=== PATIENT | female | born 2000 | race Caucasian/White ===

== ENCOUNTER 2019-11-28 04:29 | Emergency (ER) | payer OTHER, SELFPAY ==
[2019-11-28 04:33] VITALS: BP 163/88; PULSE 97; RESP 16; TEMP 36.2; O2SAT 99
--- NOTE | 2019-11-28 05:00 | ED.EXTPRO ---
HPI - Extremity Problem General Chief complaint: Extremity Problem,Nontraumatic Stated complaint: pain in left arm for months Time Seen by Provider: 11/28/19 04:50 History of Present Illness HPI Narrative: Left arm pain for the past 2 months. Moves to different locations in the arm. Currently worst in the elbow. When she moves it radiates to the neck and wrist. No injury. She has tried tyelnol without relief. No trauma, swelling, redness. She is 21 weeks Related Data Allergies Allergy/AdvReac Type Severity Reaction Status Date / Time hydromorphone Allergy Severe HALLUCINATI Verified 10/17/17 14:38 ONS morphine AdvReac Severe SEVERE Verified 10/17/17 14:38 HIVES UNCONTROLLED WITH BENADRYL Review of Systems Review of Systems: All systems reviewed & are unremarkable except as noted in HPI and below Constitutional: Constitutional: Denies fever(s) and Denies weakness Cardiovascular: Cardiovascular: Denies chest pain Respiratory: Respiratory: Denies dyspnea Gastrointestinal: Gastrointestinal: Denies nausea and Denies vomiting Genitourinary: Genitourinary: Denies abnormal vaginal bleeding and Denies vaginal discharge Musculoskeletal: Musculoskeletal: Denies back pain Exam Const: General: no acute distress and alert Orientation/consciousness: patient oriented x3 HENMT: Head: normal to inspection Chest: Chest palpation & inspection: normal inspection of the chest and no tenderness Resp: Effort & Inspection: normal respiratory effort Auscultation: clear to auscultation bilaterally Cardio: Rate: regular rate Rhythm: regular rhythm GI: GI Palp: Yes Soft to palpation and No Tenderness to palpation present (GI) Back/Spine/Pelvis: Other: Tenderness medial to left scapula. Skin: General skin exam: normal color Rashes: no rashes Wounds: no wounds Neuro: General: patient oriented x3, moves all extremities and CN's II-XI intact bilaterally Speech: normal speech Extrem: Other: Diffuse tenderness in left arm. Full ROM with some pain. No redness, warmth, deformity. Course Vital Signs Vital signs: Vital Signs Temperature 36.2 C L 11/28/19 04:33 Pulse Rate 97 11/28/19 04:33 Respiratory Rate 16 11/28/19 04:33 Blood Pressure 163/88 H 11/28/19 04:33 Pulse Oximetry 99 11/28/19 04:33 Temperature 36.2 C L 11/28/19 04:33 Pulse Rate 97 11/28/19 04:33 Respiratory Rate 16 11/28/19 04:33 Blood Pressure 163/88 H 11/28/19 04:33 Pulse Oximetry 99 11/28/19 04:33 MDM - Extremity (Nontraumatic) MDM Narrative Medical decision making narrative: Brachial and AC vein full compressible on US. Differential Diagnosis Differential diagnosis: Likely other (Strain, radiculopathy, DVT) Discharge Plan Discharge Clinical Impression: Left arm pain Patient Disposition: Home, Self-Care Condition: Stable Instructions: Arm Pain (ED) Prescriptions: New cyclobenzaprine 10 mg tablet 10 mg PO TID PRN (Reason: muscle spasm) Qty: 20 RF: 0 Interventions: Discharge Disposition Last Done: 11/28/19 05:42 IV Stop Time Documented Last Done: 11/28/19 05:43 Follow-up/Referrals: PHYSICIAN,PARTS DESIGNER [Primary Care Provider] - Discharge Date/Time: 11/28/19 05:43
[2019-11-28] MEDS: CYCLOBENZAPRINE HCL 10 MG TABLET PO (05:24)
== END 2019-11-28 05:43 | disposition home or self-care (01) ==
PROVIDERS: Emergency Provider Emergency Medicine
DX: O26.892 Other specified pregnancy related conditions, second trimester (principal); M79.602 Pain in left arm; Z3A.21 21 weeks gestation of pregnancy
CPT/HCPCS: 99283; A9270

== ENCOUNTER 2022-01-26 16:22 | Inpatient (IN) | payer OTHER, MEDICAID, SELFPAY ==
[2022-01-26] VITALS (7 sets, daily range): BP systolic 100–134; BP diastolic 59–71; PULSE 92–116; RESP 16–26; TEMP 36.9–39.4; O2SAT 93–98; BMI 33.2
--- NOTE | ~2022-01-26 | CT_ITS ---
EXAMINATION: CTA chest PE abdomen pel DATE: 01/26/2022 19:34 INDICATION: Chest pain, cough, shortness of breath, lower abdominal pain, nausea vomiting diarrhea ch ills with fever. Urinary incontinence. TECHNIQUE: Computed tomography angiography (CTA) of the chest was performed with 100 mL Omnipaque-350 intravenous contrast timed to evaluate the pulmonary arteries, followed by portal venous phase imagi ng of the abdomen and pelvis. Coronal maximum intensity projection 3D-reconstructions were created by the technologist. The dose-length product (DLP) was 1203.57 mGy-cm. Automated exposure control and i terative reconstruction technique were employed. COMPARISON: 12/29/2011. FINDINGS: CHEST: Lung parenchyma and airways: Motion artifact. Nodular and groundglass centrilobular opacities in the bilateral dependent lower lungs. Pleura: Small bilateral pleural fluid collections. Thoracic inlet, axillae and chest wall: Unremarkable. Thoracic aorta: Normal. Mediastinum: Esophageal varices.. Heart and pericardium: Normal. Coronary artery calcifications: Absent. Thoracic bones: No acute osseous finding. Pulmonary arteries: Study quality: Degraded by motion and beam hardening such that segmental emboli c ould be missed, particularly in the left lung. No central pulmonary emboli detected. ABDOMEN/PELVIS: Liver: Right liver lobe embolization coil. The main portal vein is narrowed but remains patent. No de finite thrombus Biliary/Gallbladder: Gallbladder is absent. No bile duct dilation. Pancreas: No mass or duct dilation. Spleen: Markedly enlarged, to 20.3 cm. Adrenals:No mass. Kidneys: No mass, stone, or hydronephrosis. GI tract: No small or large bowel dilation. Normal appendix. Mesentery/Peritoneum: Small volume ascites. Extensive collateral vessels present throughout the abdom en. Retroperitoneum: No mass. Pelvis: Pelvic organs are within normal limits. Soft Tissues: Soft tissues and body wall unremarkable. Abdominopelvic bones: No acute osseous finding. IMPRESSION: Severely limited examination with respect to the diagnosis of pulmonary embolism such that segmental emboli could be missed. No central emboli detected. Pulmonary opacities may reflect atypical infectio n or other small airways disease, aspiration, or hypersensitivity pneumonitis. Massive splenomegaly a nd extensive collateralization in the abdomen, presumably secondary to portal hypertension. Reviewed, dictated and finalized at location K. IMPRESSION: Severely limited examination with respect to the diagnosis of pulmonary embolis m such that segmental emboli could be missed. No central emboli detected. Pulmo nary opacities may reflect atypical infection or other small airways disease, a spiration, or hypersensitivity pneumonitis. Massive splenomegaly and extensive collateralization in the abdomen, presumably secondary to portal hypertension.
--- NOTE | ~2022-01-26 | XR_ITS ---
EXAMINATION: XR chest 1V portable Exam Date/Time: 01/26/2022 17:54 CDT HISTORY: cough , fever Comparison: None available. RESULT: Lines, tubes, and devices: Cholecystectomy clips. Possible embolization coil projecting over the rig ht upper quadrant. Lungs and pleura: Mid and lower lung reticulonodular opacities. Cardiomediastinal silhouette: Stable. Other: No acute osseous or upper abdominal finding. IMPRESSION: Pulmonary opacities may represent bronchiolitis, as can be seen with atypical infection, asthma, aspi ration, and small airways disease. Reviewed, dictated and finalized at location K. IMPRESSION: Pulmonary opacities may represent bronchiolitis, as can be seen with atypical i nfection, asthma, aspiration, and small airways disease.
[2022-01-26 16:38] LABS: Basophils Percent Auto 0.5 % (0.2-1.2); Eosinophils Percent Auto 0.2 % (0-4.4); Hematocrit 37.1 % (37.0-47.0); Hemoglobin 12.6 g/dL (12.0-15.0); Immature Granulocyte Absolute 0.02 K/mm3 (0.00-0.031); Immature Granulocyte Percent A 0.3 % (0-0.5); Immature Platelet Fraction Pct 7.3 % (0.9-11.2); Lymphocytes Absolute Auto 0.38 K/mm3 (0.9-3.2); Lymphocytes Percent Auto 5.7 % (18.3-44.2); Mean Corpuscular Hemoglobin 31.6 pg (26-34); Mean Platelet Volume 11.4 fl (7.4-10.4); Monocytes Absolute Auto 0.8 K/mm3 (0.1-0.6); Monocytes Percent Auto 12.3 % (2.6-8.5); Neutrophils Absolute Auto 5.4 K/mm3 (1.3-6.7); Platelet Count Result 88 k/mm3 (150-375); Red Blood Count 3.99 M/mm3 (4.2-5.4); Red Cell Distribution Width 14.4 % (11.5-14.5); White Blood Count 6.7 K/mm3 (4.5-10.0)
[2022-01-26 17:02] LABS: Alanine Aminotransferase 103 U/L (6-35); Alkaline Phosphatase 160 U/L (38-126); Anion Gap 11 mmol/L (8-16); Aspartate Amino Transferase 130 U/L (14-36); Bilirubin,Total 2.2 mg/dL (0.2-1.3); Blood Urea Nitrogen 7 mg/dL (7-17); Calcium 8.1 mg/dL (8.4-10.2); Carbon Dioxide 21 mmol/L (22-30); Chloride 103 mmol/L (98-107); Estimated CRCL calculation 149 ml/min; Estimated Glomerular Filt Rate > 60; Glucose 127 mg/dL (65-110); Lipase 70 U/L (23-300); Potassium 3.3 mmol/L (3.4-5.0); Sodium 135 mmol/L (137-145)
--- NOTE | 2022-01-26 18:00 | ED.GENADULT ---
HPI - General Adult General Chief complaint: Nausea/Vomiting/Diarrhea Stated complaint: cough, nausea Time Seen by Provider: 01/26/22 17:48 Source: patient and RN notes reviewed Mode of arrival: ambulatory Limitations: no limitations History of Present Illness HPI narrative: This is a 21 year old female with history of liver CA s/p liver transplant who presents for evaluation of fatigue and cough. Patient states yesterday she developed fatigue and cough. She is having progressive weakness with nausea and vomiting. She also reports small episode of diarrhea. She denies chest pain. She denies any sick contacts. She also reports small amount of urinary incontinence when she coughs, and she thinks she has UTI. She follows with transplant at [facility], and she states her liver enzymes have been running high. Related Data Home Medications Medication Instructions Recorded Confirmed norethindrone (contraceptive) 0.35 mg 1XD 01/26/22 mg tablet (Jencycla) tacrolimus 1 mg capsule, 3 mg 2XD 01/26/22 01/26/22 immediate-release Allergies Allergy/AdvReac Type Severity Reaction Status Date / Time hydromorphone Allergy Severe HALLUCINATI Verified 01/26/22 18:10 ONS morphine AdvReac Severe SEVERE Verified 01/26/22 18:10 HIVES UNCONTROLLED WITH BENADRYL Review of Systems Review of Systems: All systems reviewed & are unremarkable except as noted in HPI and below Constitutional: Constitutional: Reports chills, Reports fatigue and Denies fever(s) Eyes: Eyes: Denies change in vision ENT: Denies nasal congestion and Denies sore throat Cardiovascular: Cardiovascular: Reports chest pain Respiratory: Respiratory: Reports chest congestion, Reports cough and Reports dyspnea Gastrointestinal: Gastrointestinal: Reports abdominal pain, Reports diarrhea, Reports nausea and Reports vomiting Genitourinary: Genitourinary: Denies dysuria and Reports urinary incontinence Musculoskeletal: Musculoskeletal: Denies back pain Neurologic: Reports headache(s) and Reports weakness PMFSH Past Medical History Medical History (Updated 01/26/22 @ 23:40 by Lala Treviño MD) Liver cancer Surgical History Surgical History (Updated 01/26/22 @ 23:40 by Lala Treviño MD) Liver transplanted Social History Social History (Updated 01/26/22 @ 23:28 by Lala Treviño MD) Smoking status: Never smoker Exam Const: General: alert and ill appearing acutely Orientation/consciousness: patient oriented x3 HENMT: Head: normal to inspection Face and sinus: normal facial exam Mouth: Yes Normal oral and palatal mucosa present Teeth and gingiva: dentition normal Throat: posterior oropharynx normal Eyes: Conjunctivae: conjunctivae normal EOM: EOMs intact bilaterally Neck: Neck: normal visual inspection Chest: Chest palpation & inspection: normal inspection of the chest Resp: Effort & Inspection: no retractions and tachypneic Auscultation: clear to auscultation bilaterally Cardio: Rate: tachycardic Rhythm: regular rhythm Heart sounds: no murmurs GI: GI Palp: Yes Soft to palpation, Yes Tenderness to palpation present (GI) (bilateral lower abdomen), No Guarding due to palpation present (GI) and No Rigid due to palpation Auscultation: normal bowel sounds Skin: General skin exam: normal color Rashes: no rashes Neuro: General: patient oriented x3, moves all extremities and CN's II-XI intact bilaterally Cranial nerves: Yes Nystagmus not present Speech: normal speech Extrem: General: normal to inspection Psych: Mental Status: mental status grossly normal Affect: normal affect Attitude: cooperative Course Reevaluation(s) Reevaluation #1: Patient states she feels better. She is agreeable to obs in hospital. I Discussed that I Also spoke to [facility] about transfer and is on waiting list. I discussed with her findings of splenomegaly, pneumonia and influenza. Date: 01/26/22 Time: 21:00 Consultations
[2022-01-26] MEDS: SODIUM CHLORIDE 0.9% IV 1,000 ML 999 ML IV CONT ×3 (18:09→21:14)
[2022-01-26] MEDS: ONDANSETRON INJ 4 MG/2 ML VIAL IV PUSH (18:10)
[2022-01-26] MEDS: IBUPROFEN IV 400 MG in SODIUM CHLORIDE 0.9% IV 100 ML 208 MG IVPB (18:36)
[2022-01-26 18:39] LABS: Add Urine Microscopic? YES; Appearance Urine Cloudy (Clear); Bilirubin Urine Negative (Negative); Blood Urine 2+ (Negative); Color Urine Amber (Yellow); Glucose Urine UA Negative (Negative); Ketones Urine Negative (Negative); Leukocyte Esterase Ur Negative LEU/UL (Negative); Mucus Urine Rare /lpf; Nitrate Urine Negative (Negative); Protein Urine 1+ mg/dL (Negative); RBC Urine 0-2 /hpf (0-2); Specific Grav Ur 1.027 (1.001-1.035); Squamous Epithelial Cell Urine Occasional /hpf (Few); WBC Urine 0-3 /hpf
[2022-01-26 18:40] LABS: Lactic Acid Reflex 0.9 mmol/L (0.7-2.0)
[2022-01-26 18:45] LABS: INR 1.8; Partial Thromboplastin Time 39.1 SECONDS (22.3-36.8); Prothrombin Time 20.3 Seconds (11.1-14.7)
--- NOTE | 2022-01-26 18:59 | ECG_ITS ---
Measurements Intervals [place] Rate: 96 P: 47 CO: 160 QRS: 13 QRSD: 91 T: 27 QT: 354 QTc: 448 Interpretive Statements SINUS RHYTHM NONSPECIFIC T-WAVE ABNORMALITY NO PREVIOUS ECG AVAILABLE FOR COMPARISON Electronically Signed On 01-27-2022 13:12:12 CDT by Rosalie Bender M.D.
[2022-01-26 19:09] LABS: Influenza A QL RT-PCR Positive (Negative); Influenza B QL RT-PCR Negative (Negative); SARS-CoV-2 RNA PCR Negative
--- NOTE | 2022-01-26 21:22 | PC.NURSE ---
Patient on waitlist at [facility] for bed.
[2022-01-26] MEDS: OSELTAMIVIR PHOSPHATE 75 MG CAPSULE PO (22:03)
--- NOTE | 2022-01-26 23:47 | ADMGEN ---
This patient, Margoth Aguila, was admitted to 2 Medical Room 251-01. Patient/family oriented to hospital policies and general routines including ID bracelet, bed and alarms, visiting hours, pain management, procedures, bathroom and other care routines, personal items, smoking policy, room service/diet, and visiting hours. Information on how to activate the Rapid Response Team has been discussed. Patient/Family are encouraged to report perceived risks to care and to ask questions if they do not understand what they are told or what they should do.
[2022-01-27] VITALS (17 sets, daily range): BP systolic 112–122; BP diastolic 54–65; PULSE 68–101; RESP 16–20; TEMP 36.3–36.9; O2SAT 95–98
[2022-01-27] MEDS: LACTATED RINGERS 1,000 ML 125 ML IV CONT ×2 (00:46→10:52)
--- NOTE | 2022-01-27 01:25 | PM.IMHP ---
H&P: HPI History of Present Illness Date/Time: 01/27/22 01:25 Chief Complaint: generalized malaise Narrative: This is a 21-year-old female with past medical history significant for liver cancer in childhood status post liver transplant on immunosuppressive therapy, patient presents to the emergency room due to generalized malaise body aches and pains nausea vomiting diarrhea scratchy throat cough sputum production for 1 day duration prior to this patient was in her usual state of health, no sick contacts at home, poor appetite, denies abdominal pain. preliminary workup was significant for liver enzymes AST/ALT /alk phos 130/103/160 respectively she tested positive for flu type A. a call was placed out to [facility] and patient is awaiting bed is in the waiting list upon discussing with patient she states that her liver enzymes have been at this level before. Patient is being admitted for further evaluation management and treatment. Review of Systems Review of Systems: Generalized malaise, body aches and pains, cough, sputum production, nausea, vomiting, diarrhea. Constitutional: Constitutional: Reports fatigue, Reports malaise, Reports poor appetite and Reports weakness Eyes: Eyes: Denies change in vision ENT: Denies dysphagia and Denies odynophagia Cardiovascular: Cardiovascular: Denies chest pain, Denies syncope, Denies irregular heart rhythm, Denies lightheadedness, Denies palpitations and Denies dyspnea on exertion Respiratory: Respiratory: Reports chest congestion, Reports cough and Reports excessive phlegm production Gastrointestinal: Gastrointestinal: Denies abdominal pain, Denies dyspepsia, Denies heartburn, Reports diarrhea, Reports nausea and Reports vomiting Genitourinary: Genitourinary: Denies dysuria Musculoskeletal: Musculoskeletal: Reports myalgias Integumentary/Breasts: Skin/Breast: Denies rash Neurologic: Denies vertigo, Denies dizziness, Denies focal weakness and Denies Sensory deficit (Neuro) Psychiatric: Psychiatric: Reports no additional psychiatric complaints and Reports as per HPI Endocrine: Endocrine: Denies cold intolerance, Denies flushing, Denies heat intolerance, Denies polyphagia, Denies polydipsia and Denies palpitations Hematologic/Lymphatic: Hematologic/Lymphatic: Reports no additional hematologic/lymphatic complaints and Reports as per HPI Allergic/Immunologic: Allergic/Immunologic: Reports no additional allergic/immunologic complaints and Reports as per HPI [facility] Past Medical History Medical History (Updated 01/27/22 @ 04:46 by Silvia Randolph MD) Liver cancer Surgical History Surgical History (Updated 01/26/22 @ 23:40 by Lala Treviño MD) Liver transplanted Social History Social History (Updated 01/26/22 @ 23:28 by Lala Treviño MD) Smoking status: Never smoker Second hand tobacco smoke exposure: No Alcohol intake: never Substance use: never Substance use type: does not use Spiritual care concerns: No Meds Home Medications and Allergies Home Medications Medication Instructions Recorded Confirmed Type norethindrone (contraceptive) 0.35 0.35 mg PO 1XD 01/26/22 01/27/22 History mg tablet (Jencycla) tacrolimus 1 mg capsule, 3 mg 2XD 01/26/22 01/26/22 History immediate-release Allergies Allergy/AdvReac Type Severity Reaction Status Date / Time hydromorphone Allergy Severe HALLUCINATI Verified 01/27/22 00:09 ONS morphine AdvReac Severe SEVERE Verified 01/27/22 00:09 HIVES UNCONTROLLED WITH BENADRYL Vital Signs Vital Signs - 24 hr 01/26/22 16:24 01/26/22 17:58 01/26/22 18:36 Temperature 102.9 F H 102.2 F H 102.2 F H Pulse Rate 116 H 108 H Respiratory Rate 22 H 26 H Blood Pressure 125/71 111/59 L Pulse Oximetry 96 93 Oxygen Delivery Room Air 01/26/22 19:40 01/26/22 21:54 01/26/22 23:55 Temperature 98.5 F 98.5 F Pulse Rate 99 92 Respiratory Rate 18 16 Blood Pressure 100/60 109
[2022-01-27 05:43] LABS: Hemoglobin 11.4 g/dL (12.0-15.0); Immature Platelet Fraction Pct 8.2 % (0.9-11.2); Mean Corpuscular HGB Conc 33.5 g/dl (32-36); Mean Corpuscular Hemoglobin 30.8 pg (26-34); Mean Corpuscular Volume 91.9 fl (80-100); Mean Platelet Volume 11.3 fl (7.4-10.4); Platelet Count Result 58 k/mm3 (150-375); Red Cell Distribution Width 14.5 % (11.5-14.5); White Blood Count 3.7 K/mm3 (4.5-10.0)
[2022-01-27 05:52] LABS: Alanine Aminotransferase 86 U/L (6-35); Albumin Level 3.4 g/dL (3.5-5.1); Alkaline Phosphatase 148 U/L (38-126); Anion Gap 6 mmol/L (8-16); Aspartate Amino Transferase 97 U/L (14-36); Bilirubin,Total 1.6 mg/dL (0.2-1.3); Blood Urea Nitrogen 5 mg/dL (7-17); Calcium 7.5 mg/dL (8.4-10.2); Carbon Dioxide 22 mmol/L (22-30); Chloride 109 mmol/L (98-107); Estimated CRCL calculation 144 ml/min; Estimated Glomerular Filt Rate > 60; Glucose 114 mg/dL (65-110); Potassium 3.5 mmol/L (3.4-5.0); Sodium 137 mmol/L (137-145)
[2022-01-27 06:46] LABS: Band Neutrophils Percent 38 % (0-6); Hypochromasia 1+ (NORMAL); Lymphocytes Absolute Manual 0.33 K/mm3 (1.1-4.5); Monocytes Absolute Manual 0.18 K/mm3 (0.1-0.90); Monocytes Percent Manual 5 % (3-9); Neutrophils Absolute Manual 3.18 K/mm3 (1.7-7.2); Neutrophils Percent Manual 48 % (46-73); Platelet Estimate Decreased (Adequate); Schistocytes None Seen (NORMAL); Total Cells Counted 100
[2022-01-27 09:02] LABS: Immature Reticulocyte Fraction 6.2 % (3.0-15.9); Reticulocyte Hemoglobin Conten 33.7 pg (28.2-35.7); Reticulocyte Percent 1.98 % (0.7-4.3); Reticulocytes Absolute 0.07 B/L (32.2-175.7)
[2022-01-27 09:04] LABS: Transferrin 194 mg/dL (206-381)
[2022-01-27] MEDS: OSELTAMIVIR PHOSPHATE 75 MG CAPSULE PO ×2 (09:14→21:02)
--- NOTE | 2022-01-27 09:45 | PM.IMPN ---
Progress Note: A&P Assessment and Plan (1) Sepsis: Code(s): A41.9 - Sepsis, unspecified organism Status: Acute Assessment and Plan: Meets Sirs with fever, tachycardia, tachypnea, leukocytopenia and source of infection Source of infection appears to be pneumonia Tbili 1.6, elevated liver enzymes Seems to be a severe sepsis at this point Antibiotics started in the ed, and continued Fluids given in the ed CTA suggests atypical PNA Blood cultures pending Qsofa score is 1 Band % is 38 WBC low at 3.7, does take immunosuppressive therapy Trend labs Adjust therapy as indicated (2) Influenza A: Code(s): J10.1 - Influenza due to other identified influenza virus with other respiratory manifestations Status: Acute Assessment and Plan: Flu A positive Continue Oseltamivir Rocephin and Zithromax for antibacterial coverage Cough syrup, tylenol Supportive care (3) Pneumonia: Code(s): J18.9 - Pneumonia, unspecified organism Status: Acute Assessment and Plan: CTA noted pulmonary opacities reflecting atypical infection WBC 3.7 influenza pneumonia Continue antibiotics and antivirals for now supportive care (4) Thrombocytopenia: Code(s): D69.6 - Thrombocytopenia, unspecified Status: Acute Assessment and Plan: PLT 58 Could be related to the liver Continue to trend Coags are high Anemia labs iron 25, TIBC 296, % sat pending, transferrin 194, Ferritin pending, B12 889, Folate 7.4 Start ferrous sulfate (5) Anemia: Code(s): D64.9 - Anemia, unspecified Status: Acute Assessment and Plan: H/H stable at 11.4/34.0 Anemia labs indicate iron deficiency anemia Start ferrous sulfate Trend H/H Adjust therapy as indicated Transfuse if HGB <7.0 (6) Abnormal liver enzymes: Code(s): R74.8 - Abnormal levels of other serum enzymes Status: Acute Assessment and Plan: patient has had liver enzymes elevated in the past and could relate with current values awaiting bed at [facility] Currently stable at 97/86, t bili 1.6 Trending down (7) Liver transplanted: Code(s): Z94.4 - Liver transplant status Status: Acute Assessment and Plan: continue tacrolimus tacrolimus level in progress U called awaiting transfer Dr. Celis , GI fellow at [facility] accepted the patient (8) Spleen enlarged: Code(s): R16.1 - Splenomegaly, not elsewhere classified Status: Acute Assessment and Plan: CT indicates enlarged spleen [place] test ordered Monitor Time Spent With Patient Time with patient: Greater than 35 minutes Subjective Date/time seen: 01/27/22944 Interval history: 01/27/22944 Patient is still having a lot of congestion. She is also complaining of having a sore throat and is stating that it is very hard to swallow. She is also stating that she does feel pretty strong however with the cough it is hurting her chest. She also stated that her appetite isn't the best however she does try to eat some stuff. She is also asking for mono test since her spleen is enlarged however she does have quite a bit of other things going on. She also stated that she only takes her iron as she needs to or whenever she feels lightheaded and dizzy however I did educate her about taking it all the time. She denies any chest pain or shortness of breath, nausea, vomiting, diarrhea, constipation, weakness or fatigue. 01/27/22? 01:25 ?This is a 21-year-old female with past medical history significant for liver cancer in childhood status post liver transplant on immunosuppressive therapy, patient presents to the emergency room due to generalized malaise body aches and pains nausea vomiting diarrhea scratchy throat cough sputum production for 1 day duration prior to this patient was i
--- NOTE | 2022-01-27 09:45 | P.PNIM_ITS ---
Progress Note: A&P Assessment and Plan (1) Sepsis: Code(s): A41.9 - Sepsis, unspecified organism Status: Acute Assessment and Plan: * Meets Sirs with fever, tachycardia, tachypnea, leukocytopenia and source of i nfection * Source of infection appears to be pneumonia * Tbili 1.6, elevated liver enzymes * Seems to be a severe sepsis at this point * Antibiotics started in the ed, and continued * Fluids given in the ed * CTA suggests atypical PNA * Blood cultures pending * Qsofa score is 1 * Band % is 38 * WBC low at 3.7, does take immunosuppressive therapy * Trend labs * Adjust therapy as indicated (2) Influenza A: Code(s): J10.1 - Influenza due to other identified influenza virus with other respiratory manifestations Status: Acute Assessment and Plan: * Flu A positive * Continue Oseltamivir * Rocephin and Zithromax for antibacterial coverage * Cough syrup, tylenol * Supportive care (3) Pneumonia: Code(s): J18.9 - Pneumonia, unspecified organism Status: Acute Assessment and Plan: * CTA noted pulmonary opacities reflecting atypical infection * WBC 3.7 * influenza pneumonia * Continue antibiotics and antivirals for now * supportive care (4) Thrombocytopenia: Code(s): D69.6 - Thrombocytopenia, unspecified Status: Acute Assessment and Plan: * PLT 58 * Could be related to the liver * Continue to trend * Coags are high * Anemia labs iron 25, TIBC 296, % sat pending, transferrin 194, Ferritin pending, B12 889, Folate 7.4 * Start ferrous sulfate (5) Anemia: Code(s): D64.9 - Anemia, unspecified Status: Acute Assessment and Plan: * H/H stable at 11.4/34.0 * Anemia labs indicate iron deficiency anemia * Start ferrous sulfate * Trend H/H * Adjust therapy as indicated * Transfuse if HGB <7.0 (6) Abnormal liver enzymes: Code(s): R74.8 - Abnormal levels of other serum enzymes Status: Acute Assessment and Plan: * patient has had liver enzymes elevated in the past and could relate with current values * awaiting bed at [facility] * Currently stable at 97/86, t bili 1.6 * Trending down (7) Liver transplanted: Code(s): Z94.4 - Liver transplant status Status: Acute Assessment and Plan: * continue tacrolimus * tacrolimus level in progress * U called awaiting transfer * Dr. Celis , GI fellow at [facility] accepted the patient (8) Spleen enlarged: Code(s): R16.1 - Splenomegaly, not elsewhere classified Status: Acute Assessment and Plan: * CT indicates enlarged spleen * Love test ordered * Monitor Time Spent With Patient Time with patient: Greater than 35 minutes Subjective Date/time seen: 01/27/22944 Interval history: 01/27/22944 Patient is still having a lot of congestion. She is also complaining of having a sore throat and is stating that it is very hard to swallow. She is also stating that she does feel pretty strong however with the cough it is hurting her chest. She also stated that her appetite isn't the best however she does try to eat some stuff. She is also asking for mono test since her spleen is enlarged however she does have quite a bit of other things going
[2022-01-27 10:02] LABS: Folic Acid 7.4 ng/mL (2.76->20)
[2022-01-27 10:48] LABS: Monoscreen Negative (Negative); Negative Monotest Control Negative (Negative); Positive Monotest Control Positive (Positive)
[2022-01-27 10:54] LABS: Iron 25 ug/dL (37-170)
[2022-01-27 11:03] LABS: Percent Iron Saturation 8 % (20-50)
[2022-01-27] MEDS: guaiFENesin/CODEINE (*CRX) 200/20 MG 10 ML SYRUP 5 ML PO ×2 (11:57→21:13)
--- NOTE | 2022-01-27 12:54 | PC.NURSE ---
Sent patient's home medication Tacrolimus down to pharmacy so that patient can resume taking during stay here. Called Pharmacy to make them aware it was sent down
--- NOTE | 2022-01-27 12:59 | PHAR ---
The patient's home med of Tacrolimus 1mg has been verified.
[2022-01-27] MEDS: IPRATROPIUM BR 0.02% INH SOLN 0.5 MG/2.5 ML VIAL INHALATION ×4 (13:04→23:45)
[2022-01-27] MEDS: ALBUTEROL SULFATE NEB 2.5 MG/3 ML INH 1.25 MG INHALATION ×3 (13:04→23:45)
[2022-01-27] MEDS: FERROUS SULFATE 324 MG TABLET PO (16:59)
[2022-01-27] MEDS: ACETAMINOPHEN 325 MG TABLET 650 MG PO (17:59)
[2022-01-27] MEDS: ONDANSETRON INJ 4 MG/2 ML VIAL IV PUSH (22:41)
[2022-01-28] VITALS (10 sets, daily range): BP systolic 98–115; BP diastolic 42–69; PULSE 71–104; RESP 2–21; TEMP 36.2–36.7; O2SAT 93–100
[2022-01-28 05:18] LABS: Basophils Percent Auto 0.9 % (0.2-1.2); Eosinophils Absolute Auto 0.1 K/mm3 (0-0.3); Eosinophils Percent Auto 4.6 % (0-4.4); Hematocrit 34.1 % (37.0-47.0); Hemoglobin 11.4 g/dL (12.0-15.0); Immature Platelet Fraction Pct 8.7 % (0.9-11.2); Lymphocytes Absolute Auto 0.69 K/mm3 (0.9-3.2); Lymphocytes Percent Auto 31.5 % (18.3-44.2); Mean Corpuscular HGB Conc 33.4 g/dl (32-36); Mean Corpuscular Hemoglobin 31.8 pg (26-34); Mean Platelet Volume 11.6 fl (7.4-10.4); Monocytes Absolute Auto 0.2 K/mm3 (0.1-0.6); Monocytes Percent Auto 8.2 % (2.6-8.5); Neutrophils Absolute Auto 1.2 K/mm3 (1.3-6.7); Neutrophils Percent Auto 54.8 % (45.5-73.1); Platelet Count Result 61 k/mm3 (150-375); Red Blood Count 3.59 M/mm3 (4.2-5.4); Red Cell Distribution Width 14.5 % (11.5-14.5); White Blood Count 2.2 K/mm3 (4.5-10.0)
[2022-01-28 05:30] LABS: Alanine Aminotransferase 69 U/L (6-35); Albumin Level 3.3 g/dL (3.5-5.1); Alkaline Phosphatase 130 U/L (38-126); Anion Gap 7 mmol/L (8-16); Aspartate Amino Transferase 77 U/L (14-36); Bilirubin,Total 0.8 mg/dL (0.2-1.3); Blood Urea Nitrogen 5 mg/dL (7-17); Calcium 7.4 mg/dL (8.4-10.2); Carbon Dioxide 22 mmol/L (22-30); Chloride 110 mmol/L (98-107); Estimated CRCL calculation 169 ml/min; Estimated Glomerular Filt Rate > 60; Glucose 93 mg/dL (65-110); Magnesium 1.6 mg/dL (1.6-2.3); Potassium 3.5 mmol/L (3.4-5.0); Sodium 139 mmol/L (137-145)
[2022-01-28] MEDS: ALBUTEROL SULFATE NEB 2.5 MG/3 ML INH 1.25 MG INHALATION ×2 (05:30→09:18)
[2022-01-28] MEDS: IPRATROPIUM BR 0.02% INH SOLN 0.5 MG/2.5 ML VIAL INHALATION ×2 (05:30→09:19)
[2022-01-28] MEDS: OSELTAMIVIR PHOSPHATE 75 MG CAPSULE PO ×2 (08:18→20:49)
[2022-01-28] MEDS: FERROUS SULFATE 324 MG TABLET PO ×2 (08:19→17:58)
[2022-01-28] MEDS: ACETAMINOPHEN 325 MG TABLET 650 MG PO (13:27)
[2022-01-28] MEDS: hydrOXYzine HCL 10 MG TABLET PO (14:28)
--- NOTE | 2022-01-28 17:14 | P.PNIM_ITS ---
Progress Note: A&P Assessment and Plan (1) Sepsis: Code(s): A41.9 - Sepsis, unspecified organism Status: Acute Assessment and Plan: patient septic on presentation with fever, tachycardia, tachypnea, leukopenia, hyperbilirubinemia, transaminitis. * Source of infection felt to be pneumonia * Blood cultures pending (appears only one culture bottle was collected for unclear reasons), negative to date * continue antibiotics and antiviral * sepsis appears resolved with resolution of fever, tachypnea, tachycardia (2) Influenza A: Code(s): J10.1 - Influenza due to other identified influenza virus with other respiratory manifestations Status: Acute Assessment and Plan: positive for influenza A on 01/26/2022 * Continue Oseltamivir * supportive care (3) Pneumonia: Code(s): J18.9 - Pneumonia, unspecified organism Status: Acute Assessment and Plan: CTA noted pulmonary opacities reflecting atypical infection * continue with antibiotics for coverage of community-acquired pneumonia * supportive care (4) Pancytopenia: Code(s): D61.818 - Other pancytopenia Status: Acute Assessment and Plan: patient with pancytopenia noted on CBC today. * May be related to acute viral illness vs immunocompromised status * ANC is 1205. No need for neutropenic precautions * continue to monitor CBC with differential (5) Splenomegaly: Code(s): R16.1 - Splenomegaly, not elsewhere classified Status: Acute Assessment and Plan: Massive planning megaly with extensive collateralization in the abdomen, presumably secondary to portal hypertension noted on CTA of abdomen/pelvis * Patient is awaiting evaluation by her newspaper correspondent * [place] is negative (6) Liver transplanted: Code(s): Z94.4 - Liver transplant status Status: Acute Assessment and Plan: s/p liver transplant [place] [address] Landry * Patient is accepted for transfer to [facility] for GI evaluation. Has been on waiting list since 01/26/22, informed transfer could take up to 7 days * Patient feeling better and eager for discharge home. Call to Dr. Landry to consider close outpatient follow up, awaiting return call. * Continue tacrolimus (7) Abnormal liver enzymes: Code(s): R74.8 - Abnormal levels of other serum enzymes Status: Acute Assessment and Plan: Per patient, LFTs are chronically elevated. * Baseline unclear. If acutely elevated, likely related to sepsis * Awaiting GI evaluation * Continue to trend LFTs. Downward trend * Total bilirubin normalized today Subjective Date/time seen: 01/28/22 17:14 Interval history: Date of service: 01/28/2022 Margoth Aguila is a 21-year-old female with history of liver cancer s/p liver transplant in 2012 monitored by hepatology who is seen in follow-up for pneumonia. patient reports she is feeling better today. States her cough has improved. Was previously productive of green-yellow sputum is now clear. She denies shortness of breath. She feels her energy levels have improved. She denies nausea, vomiting, fever, chills. She did complain of palpitations after completing a breathing treatment. She notes not much improvement with breathing treatments and would like these to be discontinued at this time. She is tolerating her diet. She has no additional concerns. Review of Systems Review of Systems: All systems reviewed & are unremarkable except as noted in HPI and bel
--- NOTE | 2022-01-28 17:14 | PM.IMPN ---
Progress Note: A&P Assessment and Plan (1) Sepsis: Code(s): A41.9 - Sepsis, unspecified organism Status: Acute Assessment and Plan: patient septic on presentation with fever, tachycardia, tachypnea, leukopenia, hyperbilirubinemia, transaminitis. Source of infection felt to be pneumonia Blood cultures pending (appears only one culture bottle was collected for unclear reasons), negative to date continue antibiotics and antiviral sepsis appears resolved with resolution of fever, tachypnea, tachycardia (2) Influenza A: Code(s): J10.1 - Influenza due to other identified influenza virus with other respiratory manifestations Status: Acute Assessment and Plan: positive for influenza A on 01/26/2022 Continue Oseltamivir supportive care (3) Pneumonia: Code(s): J18.9 - Pneumonia, unspecified organism Status: Acute Assessment and Plan: CTA noted pulmonary opacities reflecting atypical infection continue with antibiotics for coverage of community-acquired pneumonia supportive care (4) Pancytopenia: Code(s): D61.818 - Other pancytopenia Status: Acute Assessment and Plan: patient with pancytopenia noted on CBC today. May be related to acute viral illness vs immunocompromised status ANC is 1205. No need for neutropenic precautions continue to monitor CBC with differential (5) Splenomegaly: Code(s): R16.1 - Splenomegaly, not elsewhere classified Status: Acute Assessment and Plan: Massive planning megaly with extensive collateralization in the abdomen, presumably secondary to portal hypertension noted on CTA of abdomen/pelvis Patient is awaiting evaluation by her internal consultant [place] is negative (6) Liver transplanted: Code(s): Z94.4 - Liver transplant status Status: Acute Assessment and Plan: s/p liver transplant [place] [address] Landry Patient is accepted for transfer to [facility] for GI evaluation. Has been on waiting list since 01/26/22, informed transfer could take up to 7 days Patient feeling better and eager for discharge home. Call to Dr. Landry to consider close outpatient follow up, awaiting return call. Continue tacrolimus (7) Abnormal liver enzymes: Code(s): R74.8 - Abnormal levels of other serum enzymes Status: Acute Assessment and Plan: Per patient, LFTs are chronically elevated. Baseline unclear. If acutely elevated, likely related to sepsis Awaiting GI evaluation Continue to trend LFTs. Downward trend Total bilirubin normalized today Subjective Date/time seen: 01/28/22 17:14 Interval history: Date of service: 01/28/2022 Margoth Aguila is a 21-year-old female with history of liver cancer s/p liver transplant in 2013 monitored by hepatology who is seen in follow-up for pneumonia. patient reports she is feeling better today. States her cough has improved. Was previously productive of green-yellow sputum is now clear. She denies shortness of breath. She feels her energy levels have improved. She denies nausea, vomiting, fever, chills. She did complain of palpitations after completing a breathing treatment. She notes not much improvement with breathing treatments and would like these to be discontinued at this time. She is tolerating her diet. She has no additional concerns. Review of Systems Review of Systems: All systems reviewed & are unremarkable except as noted in HPI and below Exam Narrative: General: Well-nourished, well-appearing 21-year-old female, sitting up in bed, comfortable, NARD Neuro: awake, alert and oriented x4, speech clear, no focal neuro deficits noted HEENMT: normocephalic, atraumatic, EOMI, sclerae anicteric Respiratory: clear to auscultation bilaterally, nonlabored breathing Cardio: regular rate, regular rhythm with S1-S2 Abdomen: nondistended, normoactive bowel sounds, soft, nontender
--- NOTE | 2022-01-29 00:18 | PC.NURSE ---
Notified at 0018 that pt is refusing telemetry at this time, provider wants us to continue to educate and reevaluate. Will reeducate pt.
[2022-01-29 05:13] VITALS: BP 122/62; PULSE 89; RESP 16; TEMP 36.6; O2SAT 96
[2022-01-29 06:03] LABS: Basophils Percent Auto 0.4 % (0.2-1.2); Eosinophils Absolute Auto 0.1 K/mm3 (0-0.3); Eosinophils Percent Auto 5.1 % (0-4.4); Hematocrit 33.5 % (37.0-47.0); Hemoglobin 11.3 g/dL (12.0-15.0); Immature Granulocyte Absolute 0.01 K/mm3 (0.00-0.031); Immature Granulocyte Percent A 0.4 % (0-0.5); Immature Platelet Fraction Pct 7.3 % (0.9-11.2); Lymphocytes Absolute Auto 0.82 K/mm3 (0.9-3.2); Lymphocytes Percent Auto 34.6 % (18.3-44.2); Mean Corpuscular HGB Conc 33.7 g/dl (32-36); Mean Corpuscular Volume 91.8 fl (80-100); Mean Platelet Volume 11.4 fl (7.4-10.4); Monocytes Absolute Auto 0.2 K/mm3 (0.1-0.6); Monocytes Percent Auto 7.2 % (2.6-8.5); Neutrophils Absolute Auto 1.2 K/mm3 (1.3-6.7); Neutrophils Percent Auto 52.3 % (45.5-73.1); Platelet Count Result 72 k/mm3 (150-375); Red Blood Count 3.65 M/mm3 (4.2-5.4); Red Cell Distribution Width 14.2 % (11.5-14.5); White Blood Count 2.4 K/mm3 (4.5-10.0)
[2022-01-29 06:20] LABS: Alanine Aminotransferase 56 U/L (6-35); Albumin Level 3.2 g/dL (3.5-5.1); Alkaline Phosphatase 124 U/L (38-126); Anion Gap 7 mmol/L (8-16); Aspartate Amino Transferase 56 U/L (14-36); Bilirubin,Total 0.6 mg/dL (0.2-1.3); Blood Urea Nitrogen 8 mg/dL (7-17); Calcium 7.5 mg/dL (8.4-10.2); Carbon Dioxide 23 mmol/L (22-30); Chloride 109 mmol/L (98-107); Estimated CRCL calculation 144 ml/min; Estimated Glomerular Filt Rate > 60; Glucose 96 mg/dL (65-110); Potassium 3.3 mmol/L (3.4-5.0); Sodium 139 mmol/L (137-145)
[2022-01-29] MEDS: OSELTAMIVIR PHOSPHATE 75 MG CAPSULE PO (08:14)
[2022-01-29] MEDS: FERROUS SULFATE 324 MG TABLET PO (08:14)
[2022-01-29] MEDS: POTASSIUM CHLORIDE 20 MEQ TABLET PO (10:12)
--- NOTE | 2022-01-29 10:15 | P.DS_ITS ---
DS: Admitting Diagnosis Discharge Date 01/29/2022 Admitting Diagnosis Influenza DS: Discharge Diagnosis Discharge Diagnosis (1) Sepsis: Code(s): A41.9 - Sepsis, unspecified organism Status: Acute Assessment and Plan: patient septic on presentation with fever, tachycardia, tachypnea, leukopenia, hyperbilirubinemia, transaminitis. * source of infection felt to be pneumonia * blood cultures negative * continue antibiotics and antiviral * sepsis resolved (2) Influenza A: Code(s): J10.1 - Influenza due to other identified influenza virus with other respiratory manifestations Status: Acute Assessment and Plan: Positive for influenza A on 01/26/2022 * Continue Oseltamivir to complete 5 days * Supportive care provided (3) Pneumonia: Code(s): J18.9 - Pneumonia, unspecified organism Status: Acute Assessment and Plan: CTA noted pulmonary opacities reflecting atypical infection * received ceftiaxone and azithromycin for bacterial pneumonia, transitioned to PO cefdinir to complete 7 days and PO azithromycin to complete 5 days * supportive care (4) Pancytopenia: Code(s): D61.818 - Other pancytopenia Status: Acute Assessment and Plan: Evident on CBC with diff * May be related to acute viral illness vs immunocompromised status * ANC is 1205. No need for neutropenic precautions * continue to monitor CBC with differential. * follow up with supply chain project manager for review and monitoring (5) Splenomegaly: Code(s): R16.1 - Splenomegaly, not elsewhere classified Status: Acute Assessment and Plan: Massive splenomegaly with extensive collateralization in the abdomen, presumably secondary to portal hypertension noted on CTA of abdomen/pelvis * Reviewed imaging with supply chain project manager, felt to be near baseline * Outpatient follow up * [place] is negative (6) Liver transplanted: Code(s): Z94.4 - Liver transplant status Status: Acute Assessment and Plan: S/p liver transplant [place] [address] Landry * Patient was accepted for transfer to [facility] for GI evaluation, on waiting list since 01/26/22. Informed transfer could take up to 7 days and given patients improvement she requested discharge home with outpatient follow up. Spoke with supply chain project manager who felt outpatient follow up was appropriate. Transfer was cancelled. * Continue tacrolimus (7) Abnormal liver enzymes: Code(s): R74.8 - Abnormal levels of other serum enzymes Status: Acute Assessment and Plan: Per patient, LFTs are chronically elevated. * Elevation likely related to sepsis * GI follow up * Total bilirubin normalized DS: Summary Hospital Course Hospital Course: Date of admission: 01/26/2022 Date of discharge: 01/29/2022 Margoth Aguila is a 21-year-old female with history of liver cancer s/p liver tr ansplant in 2012 monitored by hepatology who presented to the emergency department on 01/26/2022 with complaints of fatigue and cough. On presentation to the ED, she was febrile at 102.9, she was tachypneic and tachycardic, platelet count 88, potassium 3.3, she was positive for influenza A, CXR showed pulmonary opacities, CTA of the chest/abdomen/pelvis showed no PE, pulmonary opacities representing atypical infection, and massive splenomegaly. She was accepted for transfer to [facility] for GI evaluation, however was placed on await last that was reportedly 7 days, therefore she was subsequently admitted to the hospitalist service
--- NOTE | 2022-01-29 10:15 | PM.DS ---
DS: Admitting Diagnosis Discharge Date 01/29/2022 Admitting Diagnosis Influenza DS: Discharge Diagnosis Discharge Diagnosis (1) Sepsis: Code(s): A41.9 - Sepsis, unspecified organism Status: Acute Assessment and Plan: patient septic on presentation with fever, tachycardia, tachypnea, leukopenia, hyperbilirubinemia, transaminitis. source of infection felt to be pneumonia blood cultures negative continue antibiotics and antiviral sepsis resolved (2) Influenza A: Code(s): J10.1 - Influenza due to other identified influenza virus with other respiratory manifestations Status: Acute Assessment and Plan: Positive for influenza A on 01/26/2022 Continue Oseltamivir to complete 5 days Supportive care provided (3) Pneumonia: Code(s): J18.9 - Pneumonia, unspecified organism Status: Acute Assessment and Plan: CTA noted pulmonary opacities reflecting atypical infection received ceftiaxone and azithromycin for bacterial pneumonia, transitioned to PO cefdinir to complete 7 days and PO azithromycin to complete 5 days supportive care (4) Pancytopenia: Code(s): D61.818 - Other pancytopenia Status: Acute Assessment and Plan: Evident on CBC with diff May be related to acute viral illness vs immunocompromised status ANC is 1205. No need for neutropenic precautions continue to monitor CBC with differential. follow up with clinical trial manager for review and monitoring (5) Splenomegaly: Code(s): R16.1 - Splenomegaly, not elsewhere classified Status: Acute Assessment and Plan: Massive splenomegaly with extensive collateralization in the abdomen, presumably secondary to portal hypertension noted on CTA of abdomen/pelvis Reviewed imaging with clinical trial manager, felt to be near baseline Outpatient follow up [place] is negative (6) Liver transplanted: Code(s): Z94.4 - Liver transplant status Status: Acute Assessment and Plan: S/p liver transplant [place] [address] Landry [facility], on waiting list since 01/26/22. Informed transfer could take up to 7 days and given patients improvement she requested discharge home with outpatient follow up. Spoke with clinical trial manager who felt outpatient follow up was appropriate. Transfer was cancelled. Continue tacrolimus (7) Abnormal liver enzymes: Code(s): R74.8 - Abnormal levels of other serum enzymes Status: Acute Assessment and Plan: Per patient, LFTs are chronically elevated. Elevation likely related to sepsis GI follow up Total bilirubin normalized DS: Summary Hospital Course Hospital Course: Date of admission: 01/26/2022 Date of discharge: 01/29/2022 Margoth Aguila is a 21-year-old female with history of liver cancer s/p liver transplant in 2012 monitored by hepatology who presented to the emergency department on 01/26/2022 with complaints of fatigue and cough. On presentation to the ED, she was febrile at 102.9, she was tachypneic and tachycardic, platelet count 88, potassium 3.3, she was positive for influenza A, CXR showed pulmonary opacities, CTA of the chest/abdomen/pelvis showed no PE, pulmonary opacities representing atypical infection, and massive splenomegaly. She was accepted for transfer to [facility] for GI evaluation, however was placed on await last that was reportedly 7 days, therefore she was subsequently admitted to the hospitalist service for further evaluation and monitoring while awaiting transfer. Please see above for further details. The patient was treated with Tamiflu, ceftriaxone azithromycin during admission. She had symptomatic improvement. She was feeling much improved and was eager for discharge home. She was still awaiting transfer, but given her improvement she no longer wanted to proceed with transfer. I spoke with her clinical trial manager office. Her primary transp
== END 2022-01-29 10:55 | disposition home or self-care (01) | DRG 871 ==
LOC: ANHED 20:03 → ANH2MED 22:18
PROVIDERS: Emergency Medicine; Nurse Practitioner; Physician Assistant; Admitting Provider Internal Medicine; Emergency Provider General Practice; Visit Provider Internal Medicine
DX: A41.89 Other specified sepsis (principal); J10.00 Influenza due to other identified influenza virus with unspecified type of pneumonia; Z94.4 Liver transplant status; D61.818 Other pancytopenia; R65.20 Severe sepsis without septic shock; R16.1 Splenomegaly, not elsewhere classified; Z20.822 Contact with and (suspected) exposure to COVID-19; Z85.05 Personal history of malignant neoplasm of liver
CPT/HCPCS: 36415; 71045; 71275; 74177; 80053; 81001; 81025; 82607; 82728; 82746; 83540; 83550; 83605; 83690; 83735; 84443; 84466; 85025; 85046; 85055; 85610; 85730; 86308; 87040; 87502; 93005; 94640; 96361; 96365; 96366; 96367; 96368; 96375; 99285; A9270; C9803; G0378; J0456; J0692; J0696; J1741; J2405; J7030; J7120; Q9967; U0003; U0005

== ENCOUNTER → 2022-06-08 10:23 | Outpatient (CLI) | payer OTHER, MEDICAID, SELFPAY ==
--- NOTE | ~2022-06-08 | US_ITS ---
Pelvic ultrasound. Clinical History: First trimester , uncertain dates Technique: Realtime transabdominal and transvaginal scanning of the pelvis was performed. Color flow Doppler and Doppler spectral analysis were performed. Findings: The uterus is anteverted, and contains an intrauterine gestation. [place]-rump length of 4.5 cm corresponds to an estimated gestational age of 11 weeks 2 days. heart rate is 161 bpm.. The right ovary measures 2.7 x 1.5 x 3.3 cm. No significant right ovarian or adnexal mass is seen. The left ovary is not visualized. No significant left ovarian or adnexal mass is seen. There is no evidence of free fluid in the cul de sac. Impression: Live intrauterine gestation with estimated gestational age of 11 weeks 2 days. heart rate is 16 1 bpm. LEIGH is 12/26/2022. Reviewed, dictated and finalized at [facility]. L OR [employer]OM SERVICE SUPERVISOR Impression: Live intrauterine gestation with estimated gestational age of 11 weeks 2 days. heart rate is 161 bpm. LEIGH is 12/26/2022.
== END ==
PROVIDERS: PCP Internal Medicine Gastroenterology; Visit Provider Advanced Practice Midwife
DX: Z36.87 Encounter for antenatal screening for uncertain dates (principal)
CPT/HCPCS: 76801

== ENCOUNTER 2023-08-10 14:27 | Emergency (ER) | payer BC, MEDICAID, SELFPAY ==
--- NOTE | ~2023-08-10 | CT_ITS ---
EXAMINATION: CT abdomen pelvis w con DATE: 08/10/2023 17:43 INDICATION: left flank pain TECHNIQUE: Computed tomography (CT) of the abdomen and pelvis was performed with 100 mL Omnipaque-350 intravenous contrast. Automated exposure control and iterative reconstruction technique were employe d. The dose-length product was 1045.84 mGy-cm. COMPARISON: CTPA abdomen pelvis 01/26/2022. FINDINGS: Lower thorax: Unremarkable Liver: Presumed embolization coil in the right liver lobe. The main portal vein is narrowed but remai ns patent with no evidence of thrombus. Biliary/Gallbladder: Gallbladder is absent. Mild intra and extrahepatic duct dilation. Pancreas: No mass or duct dilation. Spleen: Marked splenomegaly measuring up to 19.2 cm. Adrenals:No mass. Kidneys: No suspicious mass, obstructing stone, or hydronephrosis. GI tract: Moderate distal esophageal and antral wall edema. No small or large bowel dilation. Normal appendix. Mesentery/Peritoneum: No ascites, mass, or free air. Multiple surgical clips at the bhumi hepatis and IVC. The mid IVC is flattened. Extensive esophageal, upper abdominal, splenic and pelvic varices. Retroperitoneum: No mass. Pelvis: IUD, in good position. Normal uterus. Normal bilateral ovaries. Mostly decompressed urinary b ladder. Small volume free pelvic fluid. Soft Tissues: Soft tissues and body wall unremarkable. Bones: No acute osseous finding. IMPRESSION: Moderate esophagitis/gastritis. Mild intrahepatic and extra hepatic bile duct dilation, likely secondary to cholecystectomy in the ab sence of biliary lab abnormalities. Marked splenomegaly with extensive esophageal and abdominal pelvic varices. The portal vein is narrow ed but remains patent, with no evidence of thrombus. Mid IVC flattening, which appears otherwise patent, may be secondary to low volume state/dehydration. Trace ascites versus physiologic free pelvic fluid. Reviewed, dictated and finalized at location K. IMPRESSION: Moderate esophagitis/gastritis. Mild intrahepatic and extra hepatic bile duct dilation, likely secondary to cho lecystectomy in the absence of biliary lab abnormalities. Marked splenomegaly with extensive esophageal and abdominal pelvic varices. The portal vein is narrowed but remains patent, with no evidence of thrombus. Mid IVC flattening, which appears otherwise patent, may be secondary to low vol ume state/dehydration. Trace ascites versus physiologic free pelvic fluid.
[2023-08-10 14:38] VITALS: BP 112/78; PULSE 76; RESP 20; TEMP 36.2; O2SAT 98
[2023-08-10 14:55] LABS: Basophils Absolute Auto 0.1 K/mm3 (0.0-0.1); Basophils Percent Auto 0.9 % (0.2-1.2); Eosinophils Absolute Auto 0.8 K/mm3 (0-0.3); Eosinophils Percent Auto 12.6 % (0-4.4); Hematocrit 40.3 % (37.0-47.0); Hemoglobin 13.7 g/dL (12.0-15.0); Immature Granulocyte Absolute 0.02 K/mm3 (0.00-0.031); Immature Granulocyte Percent A 0.3 % (0-0.5); Immature Platelet Fraction Pct 6.4 % (0.9-11.2); Lymphocytes Absolute Auto 0.82 K/mm3 (0.9-3.2); Lymphocytes Percent Auto 12.5 % (18.3-44.2); Mean Corpuscular Hemoglobin 31.9 pg (26-34); Mean Corpuscular Volume 93.9 fl (80-100); Mean Platelet Volume 10.8 fl (7.4-10.4); Monocytes Absolute Auto 0.3 K/mm3 (0.1-0.6); Monocytes Percent Auto 4.9 % (2.6-8.5); Neutrophils Absolute Auto 4.5 K/mm3 (1.3-6.7); Neutrophils Percent Auto 68.8 % (45.5-73.1); Platelet Count Result 114 k/mm3 (150-375); Red Blood Count 4.29 M/mm3 (4.2-5.4); Red Cell Distribution Width 13.9 % (11.5-14.5); White Blood Count 6.6 K/mm3 (4.5-10.0)
[2023-08-10 15:03] LABS: Alanine Aminotransferase 48 U/L (6-35); Albumin Level 4.3 g/dL (3.5-5.1); Alkaline Phosphatase 155 U/L (38-126); Anion Gap 6 mmol/L (4-12); Aspartate Amino Transferase 65 U/L (14-36); Bilirubin,Total 1.4 mg/dL (0.2-1.3); Blood Urea Nitrogen 12 mg/dL (7-17); Calcium 9.1 mg/dL (8.4-10.2); Carbon Dioxide 26 mmol/L (22-30); Chloride 108 mmol/L (98-107); Estimated CRCL calculation 126 ml/min; Estimated Glomerular Filt Rate > 60; Glucose 95 mg/dL (65-110); Lipase 70 U/L (23-300); Potassium 4.4 mmol/L (3.4-5.0); Sodium 140 mmol/L (137-145)
[2023-08-10 16:14] VITALS: BP 122/66; PULSE 67; RESP 12; O2SAT 98
[2023-08-10 16:35] LABS: Appearance Urine Cloudy (Clear); Bacteria Urine 1+ /hpf; Bilirubin Urine 2+ (Negative); Blood Urine Negative (Negative); Color Urine Dark Yellow (Yellow); Glucose Urine UA Negative (Negative); Ketones Urine 1+ mg/dL (Negative); Leukocyte Esterase Ur Trace LEU/UL (Negative); Mucus Urine Present /lpf; Nitrate Urine Negative (Negative); Protein Urine 1+ mg/dL (Negative); RBC Urine 0-2 /hpf (0-2); Squamous Epithelial Cell Urine Moderate /hpf (Few); WBC Urine 0-5 /hpf (0-3); pH Urine 5.5 (5.0-9.0)
[2023-08-10 16:37] LABS: Specific Grav Ur 1.034 (1.001-1.035)
[2023-08-10 16:57] LABS: Add Urine Microscopic? YES
--- NOTE | 2023-08-10 17:49 | ED.ABDPAIN ---
HPI - Abdominal Pain General Chief Complaint: Abdominal Pain Stated Complaint: abdominal Time Seen by Provider: 08/10/23 16:45 History of Present Illness HPI narrative: This is a 23-year-old female, with history of childhood liver cancer status post liver transplant on tactile minus, who presents to the emergency department complaining of left upper quadrant abdominal pain for the past day. Patient describes the pain as sharp, rated 7 to 8/10 without radiation. This is associated with nausea and nonbloody vomiting. She denies diarrhea. She states she has had increased urinary frequency, similar to previous episodes of urinary tract infection. She denies any known sick contacts or recent travel. She denies bleeding from any source. She has no other complaints at this time. Related Data Home Medications Medication Instructions Recorded Confirmed norethindrone (contraceptive) 0.35 0.35 mg PO 1XD 01/26/22 01/27/22 mg tablet (Jencycla) tacrolimus 1 mg capsule, 3 mg 2XD 01/26/22 01/26/22 immediate-release Allergies Allergy/AdvReac Type Severity Reaction Status Date / Time hydromorphone Allergy Severe HALLUCINATI Verified 08/10/23 16:14 ONS morphine AdvReac Severe SEVERE Verified 08/10/23 16:14 HIVES UNCONTROLLED WITH BENADRYL Review of Systems Review of Systems: CONSTITUTIONAL: Denies fever, chills, or sweats. EYES: Denies visual changes, redness, or discharge. ENT: Denies rhinorrhea, congestion, sore throat, or otalgia. CARDIOVASCULAR: Denies chest pain, palpitations, or edema. RESPIRATORY: Denies cough or dyspnea. GASTROINTESTINAL: Left upper quadrant abdominal pain, nausea nonbloody vomiting Denies diarrhea. GENITOURINARY: LMP 8 months ago (IUD in place), increased urinary frequency. Denies hematuria. SKIN: Denies rash or itching. MUSCULOSKELETAL: Denies back pain, joint pain, or myalgia. NEUROLOGIC: Denies headache, numbness, dizziness, or weakness. PSYCHIATRIC: Denies anxiety or depression. [facility] Past Medical History Medical History Liver cancer Surgical History Surgical History Liver transplanted Social History Social History Smoking status: Never smoker Second hand tobacco smoke exposure: No Alcohol intake: never Substance use: never Substance use type: does not use Spiritual care concerns: No Exam Narrative: GENERAL: Well-developed, well-nourished, and in no acute distress. HEAD: Normocephalic, atraumatic. EYES: PERRLA and EOMI. ENT: Nares clear, no rhinorrhea or epistaxis. Mucous membranes dry. Oropharynx without tonsillar hypertrophy exudate or other lesions. CHEST: Clear to auscultation. No respiratory distress. No wheezes rales or rhonchi HEART: Regular rate and rhythm. No murmur heard. Normal peripheral pulses. ABDOMEN: Soft, tender to palpation in left upper quadrant, without rebound or guarding, nondistended, normal active bowel sounds. Left CVA tenderness to palpation. No right CVA tenderness EXTREMITIES: Normal range of motion. No edema. SKIN: Warm, dry, no rash. NEURO: Alert and oriented x3. No focal deficit. Moving all 4 limbs spontaneously PSYCH: Normal mood and affect. Course Course Emergency Course: 18:45 - CBC demonstrates thrombocytopenia with platelet count of 114 with baseline in the 70s. Chemistries demonstrate mild the total bilirubin elevation of 1.4 and AST/ALT elevation of 65/48 respectively. UA demonstrates leukocyte esterase and bacteria. CT abdomen pelvis demonstrates splenomegaly (seen on previous imaging), changes consistent with esophagitis and gastritis, mild IVC flattening consistent with dehydration and trace pelvic fluid, possibly physiologic verses trace ascites. Considering the patient's urinary symptoms and flank tenderness, will treat for pyelo
[2023-08-10] MEDS: LACTATED RINGERS 2,000 ML 999 ML IV CONT (18:18)
[2023-08-10] MEDS: ONDANSETRON INJ 4 MG/2 ML VIAL IV PUSH (18:19)
[2023-08-10] MEDS: fentaNYL CITRATE INJ (*CRX) 100 MCG/2 ML VIAL 50 MCG IV PUSH (18:21)
[2023-08-10] MEDS: KETOROLAC 30 MG/ML VIAL (*BKC) IV PUSH (18:21)
[2023-08-10 18:24] VITALS: BP 118/60; PULSE 87; RESP 17; O2SAT 98
--- NOTE | 2023-08-10 19:15 | PC.NURSE ---
Report given to Skye GRAY, all questions answered
[2023-08-10 20:01] VITALS: BP 106/62; PULSE 86; RESP 16; O2SAT 100
== END 2023-08-10 20:03 | disposition home or self-care (01) ==
PROVIDERS: Emergency Provider Preventive Medicine Aerospace Medicine; PCP Internal Medicine Gastroenterology
DX: N12 Tubulo-interstitial nephritis, not specified as acute or chronic (principal); R10.12 Left upper quadrant pain; Z94.4 Liver transplant status
CPT/HCPCS: 36415; 74177; 80053; 81001; 81025; 83690; 85025; 85055; 96361; 96374; 96375; 99284; J1885; J2405; J3010; J7120; Q9967

== ENCOUNTER 2024-05-19 10:11 | Inpatient (IN) | payer BC, SELFPAY ==
[2024-05-19] VITALS (8 sets, daily range): BP systolic 96–119; BP diastolic 48–68; PULSE 82–116; RESP 15–20; TEMP 36.6–38.9; O2SAT 96–100; BMI 25.3
--- NOTE | ~2024-05-19 | XR_ITS ---
XR chest 1V portable 05/19/2024 14:13 Indication: Flulike symptoms. Cough. Fever. Procedure: AP portable chest Comparison: 01/26/2022 Findings: There is left basilar airspace disease, compatible with pneumonia. No significant effusion. Heart size normal. Right lung clear. Impression: 1: Left basilar pneumonia. Reviewed, dictated and finalized at location A. SITION ADVISOR Impression: 1: Left basilar pneumonia.
--- NOTE | 2024-05-19 10:15 | ECG_ITS ---
Test Date: 2024-05-19 11:01:26 Measurements Intervals [place] Rate: 92 P: 49 AR: 146 QRS: 36 QRSD: 84 T: 45 QT: 337 QTc: 418 Interpretive Statements SINUS RHYTHM NONSPECIFIC T-WAVE ABNORMALITY No previous ECG available for comparison Electronically Signed On 05-19-2024 14:39:26 ENERGY CONSULTANT by Tata De Anda M.D.
--- OUTSIDE RECORDS SUMMARY | 2024-05-19 10:27 | XMS_ITS | Encounter Summary ---
Author Organization [facility] [employer] Address [address] [place] [address] Care Team Providers Care Leather Production Machine Operator Name Role Phone Josiah Palacios MD Primary Care Provider [phone] Mariama Rossi APRN-MACHINIST FIRST CLASS Unavailable Ave Cooley RN Unavailable Unavailab le ForistalStephanie RN Unavailable Unav ailable AnglimRei PharmD Unavailable Unavai Tesfaye Rivera MD Primary Care Provider [phone] Frida De Los Santos MD Unavailable Mariama Rudd WATERPROOF MATERIAL FOLDER Unavailable [phone] Josiah Palacios MD Primary Care Provider [phone] Marcel Ram MD Unavailable [phone] Reason for Visit * Reason Onset Date Comments Question 08/29/2015 Encounter Details Date Type Department Care Team (Late st Contact Info) Description 08/29/2015 Telephone [facility] - [address] [address] Biju Walker MD [facility] [place] [address] Question Social History Tobacco Use Types Packs/Day Years Used Date Smoking Tobacco: Never Smokeless Tobacco: Never Alcohol Use Standard Drinks/Week Comments No 0 (1 standard drink = 0.6 oz pur e alcohol) Sex and Gender Information Value Date Recorded Sex Assigned at Not on file Gender Identity Not on file Sexual Orientation Not on file documented as of this encounter Miscellaneous Notes * Telephone Encounter - Carolyn Helms - 08/29/2015 11:27 AM CDT [facility] requesting a script for Prograf 0.5 mg. Please fax to [phone] or call in [phone]. documented in this encounter Plan of Treatment Upcoming Encounters Date Type Department Care Team (Late st Contact Info) Description 06/27/2024 10:50 AM CDT Office Visit [facility] - CENTRAL OFFICE EQUIPMENT ENGINEER [address] [facility] [address] [place] [address] Sabra Rocha MD [address] [facility] [address] [place] [address] 08/09/2024 3:00 PM CDT Office Visit [facility] - GI [address] [place] [phone] Chayo Tyson PA-C [address] [facility] DEPT [place] [phone] 10/30/2024 11:30 AM CDT Office Visit [facility] - GI [address] [place] [phone] Juan Landry MD [address] [facility] 2L DIV [place] [address] documented as of this encounter Visit Diagnoses Not on filedocumented in this encounter Additional Health Concerns Infection Onset Date Last Indicated Resolved Time COVID-19 Under Investigation 02/16/2020 02/16/2020 02/16/2020 3:58 AM CDT COVID-19 Confirmed 02/16/2020 02/16/2020 0 4:33 AM MEDICAL DELIVERY DRIVER documented as of this encounter Care Teams Leather Production Machine Operator Relationship Specialty Start Date End Date Josiah Palacios MD PCP - General Family Medicine 12/30/11 12/06/21 Tesfaye Baca MD [address] [place] [address] PCP - General 12/07/21 01/18/23 Frida De Los Santos MD [address] [place] [address] [address] [place] [address] PCP - Attributed-[employer] 07/18/22 3 Josiah Palacios MD [address] [place] [address] PCP - General Family Medicine 01/19/23 Marcel Ram MD [address] [address] PCP - Attributed-[employer] 01/17/23 4 Mariama Rossi, LARGE ANIMAL VETERINARIAN-MACHINIST FIRST CLASS [address] [place] [address] Nurse Practitioner Nurse Practitioner 09/30/16 12/15/16 Ave Cooley, RN Registered Nurse 09/30/16 12/15/16 Stephanie Lozano, RN Registered Nurse 12/16/16 Rei Ann, PharmD Pharmacist 01/12/17 Mariama Rudd MSW Outpatient Record Searcher Care Management 12/08/22 12/10/22 documented as of this encounter
--- OUTSIDE RECORDS SUMMARY | 2024-05-19 10:27 | XMS_ITS | Encounter Summary ---
Author Organization [facility] [employer] Address [address] [facility] [place] [address] Care Team Providers Care Machine Packager Name Role Phone Josiah Palacios MD Primary Care Provider [phone] Mariama Rossi APRN-WINDOW REPAIRER Unavailable Ave Cooley RN Unavailable Unavailab le ForistalStephanie RN Unavailable Unav ailable AnglimRei PharmD Unavailable Unavai Tesfaye Rivera MD Primary Care Provider [phone] Frida De Los Santos MD Unavailable Mariama Rudd PAPER WRAPPING MACHINE OPERATOR Unavailable [phone] Josiah Palacios MD Primary Care Provider [phone] Marcel Ram MD Unavailable [phone] Reason for Visit * Reason Onset Date Comments Question 04/02/2016 Encounter Details Date Type Department Care Team (Late st Contact Info) Description 04/02/2016 Telephone [facility] - [address] [address] Biju Walker MD [facility] [place] [address] Question Social History Tobacco Use Types Packs/Day [...] encounter Miscellaneous Notes * Telephone Encounter - Biju Walker MD - 04/10/2016 2:56 PM CST Looks Like Vitamin D is slightly low. Please discuss a healthy diet and plan a dietitian consultation. Keep us informed of progress. TIONATING STILL OPERATOR * Telephone Encounter - Carolyn Helms - 04/02/2016 3:32 PM CST Megan from [facility] requesting last office note to be faxed to [phone] and to have PTPTT test added to lab testing. Patient will be in [facility] lab on 04/03/2016. TIONATING STILL OPERATOR documented in this encounter Plan of Treatment Upcoming Encounters Date Type Department Care Team (Late st Contact Info) Description 06/27/2024 10:50 AM CDT Office Visit [facility] - CITY LETTER CARRIER [address] [facility] [address] [place] [address] Sabra Rocha MD [address] [facility] [address] [place] [address] 08/09/2024 3:00 PM CDT Office Visit [facility] - GI [address] [facility], [place] [phone] Chayo Tyson PA-C [address] [facility] [place] [phone] 10/30/2024 11:30 AM CDT Office Visit [facility] - GI [address] [facility], [place] [phone] Juan Landry MD [address] [facility] 2L [place] [address] documented as of this encounter Visit Diagnoses Not on filedocumented in this encounter Additional Health Concerns Infection Onset Date Last Indicated Resolved Time COVID-19 Under Investigation 02/16/2020 02/16/2020 02/16/2020 3:58 AM CDT COVID-19 Confirmed 02/16/2020 02/16/2020 0 4:33 AM FRACTIONATING STILL OPERATOR documented as of this encounter Care Teams Machine Packager Relationship Specialty Start Date End Date Josiah Palacios MD PCP - General Family Medicine 12/30/11 12/06/21 Tesfaye Baca MD [address] [place] [address] PCP - General 12/07/21 01/18/23 Frida De Los Santos MD [address] [facility] [address] [place] [address] PCP - Attributed-[employer] 07/18/22 3 Josiah Palacios MD [address] [place] [address] PCP - General Family Medicine 01/19/23 Marcel Ram MD [address] [facility] [address] [place] [address] PCP - Attributed-[employer] 01/17/23 4 Mariama Rossi, WORDPRESS DEVELOPER-WINDOW REPAIRER [address] [place] [address] Nurse Practitioner Nurse Practitioner 09/30/16 12/15/16 Ave Cooley, RN Registered Nurse 09/30/16 12/15/16 Stephanie Lozano, RN Registered Nurse 12/16/16 Rei Ann, PharmD Pharmacist 01/12/17 Mariama Rudd, YANG Outpatient House Mover Care Management 12/08/22 12/10/22 documented as of this encounter
--- OUTSIDE RECORDS SUMMARY | 2024-05-19 10:27 | XMS_ITS | Encounter Summary ---
Author Organization [facility] Address [address] [facility] [place] [address] Care Team Providers Care Office Supervisor Name Role Phone Josiah Palacios MD Primary Care Provider [phone] Mariama Rossi HAND CUTTER APPRENTICE-SPOOL FIXER Unavailable Ave Cooley RN Unavailable Unavailab le ForistalStephanie RN Unavailable Unav ailable AnglimRei PharmD Unavailable Unavai Tesfaye Rivera MD Primary Care Provider [phone] Frida De Los Santos MD Unavailable Mariama Rudd ANALYTICAL STRATEGIST Unavailable [phone] Josiah Palacios MD Primary Care Provider [phone] Marcel Ram MD Unavailable [phone] Encounter Details Date Type Department Care Team (Late st Contact Info) Description 06/06/2012 Telephone [facility] at [address] [address] Neetu Chaney, RN Social History Tobacco Use Types Packs/Day Years Used Date Smoking Tobacco: Never Smokeless Tobacco: Never Alcohol Use Standard Drinks/Week Comments No 0 (1 standard drink = 0.6 oz pur e alcohol) Sex and Gender Information Value Date Recorded Sex Assigned at Not on file Gender Identity Not on file Sexual Orientation Not on file documented as of this encounter Plan of Treatment Upcoming Encounters Date Type Department Care Team (Late st Contact Info) Description 06/27/2024 10:50 AM CDT Office Visit [facility] - TUB PULLER [address] [facility] [address] [place] [address] Sabra Rocha MD [address] [facility] [address] [place] [address] 08/09/2024 3:00 PM CDT Office Visit [facility] - GI [address] [place] [phone] Chayo Tyson PA-C [address] [facility] DEPT [place] [phone] 10/30/2024 11:30 AM CDT Office Visit [facility] - GI [address] [place] [phone] Juan Landry MD [address] [facility] 2L [place] [address] documented as of this encounter Visit Diagnoses Not on filedocumented in this encounter Additional Health Concerns Infection Onset Date Last Indicated Resolved Time COVID-19 Under Investigation 02/16/2020 02/16/2020 02/16/2020 3:58 AM CDT COVID-19 Confirmed 02/16/2020 02/16/2020 0 4:33 AM WAD PRINTING MACHINE OPERATOR documented as of this encounter Care Teams Office Supervisor Relationship Specialty Start Date End Date Josiah Palacios MD PCP - General Family Medicine 12/30/11 12/06/21 Tesfaye Baca MD [address] [place] [address] PCP - General 12/07/21 01/18/23 Frida De Los Santos MD [address] [facility] [address] [place] [address] PCP - Attributed-[employer] 07/18/22 3 Josiah Palacios MD [address] [place] [address] PCP - General Family Medicine 01/19/23 Marcel Ram MD [address] [facility] [address] [place] [address] PCP - Attributed-[employer] 01/17/23 4 Mariama Rossi, HAND CUTTER APPRENTICE-SPOOL FIXER [address] [place] [address] Nurse Practitioner Nurse Practitioner 09/30/16 12/15/16 Ave Cooley, RN Registered Nurse 09/30/16 12/15/16 Stephanie Lozano, RN Registered Nurse 12/16/16 Rei Ann, PharmD Pharmacist 01/12/17 Mariama Rudd MSW Outpatient Oracle Distribution Consultant Care Management 12/08/22 12/10/22 documented as of this encounter
--- OUTSIDE RECORDS SUMMARY | 2024-05-19 10:28 | XMS_ITS ---
Author Organization [facility] Health Address [address] [place] [address] Care Team Providers Care Registrar [employer] Name Role Phone Stephanie Lozano RN Unavailable Unav ailable Rei Ann PharmD Unavailable Unavai Josiah Russell MD Primary Care Provider [phone] Active Problems Patient Care Coordination No te Formatting of this note migh t be different from the original. 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 Operative course relatively uncomplicated, post- operative course complicated by tachycardia and hypertension that briefly required control with Labetalol gtt but this completely resolved. Post-operative liver us with dopplers revealed widenly patent vessels. Post-surgical recuperation advanced as expected. Only event was a temperature spike x1 on POD 4 which was likely 2/2 thyroglobulin injection that day (Margoth remained asymptomatic with neg U/A and blood cx) Margoth was discharged home on POD 7; tolerating regular diet, ambulating, pain controlled with tylenol, and post-surgical ileus resolved with colace and miralax. Tacrolimus level 3.7 with other labs and LFT's improving as expected. Hospital stay: Daily labs: CMP, CBC, Mg, Phos, GTT, tacro level, and PT-PTT panel every other day- all improved throughout stay. LFT's trended down. Management: Tacrolimus started. BID labs were drawn and medication adjusted to achieve goal of 12. Discharged home on 6mg BID. Cellcept 500mg BID Thyroglobulin given x3 doses Steriod taper- continued on discharge S/p Dextran; home on ASA Infection prophylaxis: Donor gall bladder was necrotic and not viable, treated with 5 days of Abx prophy: Amp and Fortaz Valcyte 450 qAM (Donor CMV+) Bactrim qd Nystatin swish and swallow 5ml TID Monostat for vaginal yeast infection Neuro/psych: Advanced from needing [place] q6h for pain to using Tylenol prn Zoloft continued given h/o depression For insomnia, was given Benadryl qhs and Melatonin prn Discharged home. Instructed to have tacrolimus levels drawn in 2 days and follow up at transplant clinic as instructed. Please see med rec's for list of meds on discharge. Current Oncology Plans No current plan information found. Other Current Plans IRON SUCROSE (VENOFER) THERAPY PLAN* Plan Start Date:11/13/2022 Plan Provider:Kecia Orosco APRN-GRAPHICS COORDINATOR Linked Problems History of anemia Treatment Medications No medications scheduled. Past Plans No past plan information found. Radiation Treatments * No radiation treatments are documented for this patient in [facility]. Treatments may have been administered in another system. Lifetime Dose Tracking * Chemical Lifetime Dose Automatic Entry Manual Entr y Dose Length Product 1,622 mGy-cm 1,622 mGy-cm 0 mGy-cm Resolved Problems Problem Noted Date Diagnosed Date Resolved Date Decreased movement 11/11/202212/2022 Decreased movement dur ing , antepartum, single or unspecified fetus 11/11/2022 11/25/2022 Threatened premature labor in third trimester 11/01/19 23 11/03/2022 Maternal iron deficiency ane odilon complicating in third trimester 10/19/2022 01/18/2023 Abnormal ultrasound 09/24/2022 Overview (09/24/2022): Possible muscular VSD noted 09/24 Fatigue during in third trimester 09/24/2022 11/03/2022 High-risk in third trimester 09/24/2022 01/18/2023 Abdominal pain, unspecified abdominal location 09/19/2022 09/24/2022 Influenza 01/26/2022 09/24/2022 Threatened labor 03/03/2020 03/03/2020 Threatened premature labor in third trimester 02/20/20 20 03/19/2020 Shortness of breath 02/16/2020 03/19/20 20 Abdominal pain affecting 02/16/2020 03/19/2020 Non-intractable vomiting with nausea 12/13/2019 03/19/2020 Abdominal pain 11/17/2019 01/18/2020 Depression 11/29/2017 09/17/2019 Heartburn 11/29/2017 08/28/2019 Syncope 07/27/2017 09/17/2019 Assessment & Plan (07/29/2017 1:32 PM CDT): Assessment: Assessment: Margoth Aguila is an 17 year old female with a history of hepatocellular carcinoma s/p steroids and thymoglobulin who presents with a two days history of syncopal events, admitted with tachycardia, hypotension, and severe abdominal pain. Possible viral infection vs thymo medication reaction causing patient's acute episode. History of poor medication compliance, so also considering adrenal crisis as an additional cause of hypotension. RUQ ultrasound unremarkable. Plan: - Stable to make floor status - DC CR monitors - On aspirin 91mg at bedtime - Oxycodone 10mg PRN pain - Endo consulted for steroid recommendations - No signs of infection, ok to DC zosyn and clinda after 48 hours of treament - CMV, EBV, RPP, HHV-6 PCRs negative - Continue home bactrim and valcyte ppx - Blood and urine culture pending - Regular diet - Prilosec daily - Tacro 3mg BID (goal 8-10) - DC fluids - Vit D daily - Mag Oxide BID Assessment & Plan (07/28/2017 2:07 PM CDT): Assessment: Assessment: Margoth Aguila is an 17 year old female with a history of hepatocellular carcinoma s/p steroids and thymoglobulin who presents with a two days history of syncopal events. Patient is immunocomprosmied, hemodynamically stable, febrile (100.6), and has an elevated WBC with bandemia. Patient was on steroids during her previous admission and was discharged home on steroids as well; however, patient has a hsitory of poor medication compliance, so also considering adrenal crisis as an additional cause of hypotension. Patient is now stable for transfer to the TCU where purple team will assume care. Plan: - Transfer to TCU CV - Continue CR monitors - On aspirin 91mg at bedtime ?? Resp - On RA - Continuous pulse ox - End tidal CO2 monitoring while on PERFUSIONIST ?? Neuro - Fentanyl PERFUSIONIST - Basal 10mcg/hr, PERFUSIONIST dose 15mcg - Scheduled Toradol 30mg q6h x24hrs - Melatonin nightly ?? Endo - Endo consulted - 25mg/m2 Q6H stress dose steroids ?? ID - ID consulted - Continue zosyn and clindamycin - CMV, EBV, RPP, HHV-6 PCRs pending - Obtain CXR, blood culture, urine culture - Continue home bactrim and valcyte ppx - Blood and urine culture pending ?? GI - RUQ U/S today - Resume regular diet after RUQ U/S - Prilosec daily - Tacro 3mg BID (goal 8-10) - Tacro trough in am at 0800 07/28, pending - Colace and miralax daily for bowel regimen while on PERFUSIONIST - Continue prednisone FEN: - Continue IV fluids at 100ml/hr, wean when tolerating PO - Vit D daily - Mag Oxide BID Assessment & Plan (07/27/2017 5:39 PM CDT): Assessment: Assessment: Margoth Aguila is an 17 year old female with a history of hepatocellular carcinoma s/p steroids and thymoglobulin who presents with a two days history of syncopal events. Patient is immunocomprosmied, hemodynamically stable, febrile (100.6), and has an elevated WBC with bandemia. Patient was on steroids during her previous admission and was discharged home on steroids as well; however, patient has a hsitory of poor medication compliance, so also considering adrenal crisis as an additional cause of hypotension. Patient is being transferred to to concern for sepsis vs adrenal crisis. 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 Was recently admitted for thymoglobulin therapy about two weeks ago. Received thymoglobulin every other day for a total of five doses and received Prednisone 50mg on the days she didn't receive thymoglobumlin. Her labs and repeat liver biopsy showed improvement at the end of therapy. Patient was discharged on Prednisone 40mg with taper schedule. Now re-admitted for syncope and concern for sepsis. ?? Plan: - Continue prophylaxis with Septra and Valcyte - Cellcept 1 g BID - Tacrolimus 3 mg BID (goal 8-10) - Daily Tacrolimus level - Vit D 2000 Units daily - Mag Oxide 800 mg BID - Prilosec 40 mg daily - melatonin 9 mg nightly - Daily CMP, GGT, CBC, Phos, D bili, Mg - PT-INR every other day Assessment & Plan (07/28/2017 2:08 PM CDT): Assessment: Assessment: 17 yo female with PMH of hepatocellular carcinoma s/p liver transplant in 2012 with a history of rejection s/p steroids and thymoglobulin. Was recently admitted for thymoglobulin therapy about two weeks ago. Received thymoglobulin every other day for a total of five doses and received Prednisone 50mg on the days she didn't receive thymoglobumlin. Her labs and repeat liver biopsy showed improvement at the end of therapy. Patient was discharged on Prednisone 40mg with taper schedule. Now re-admitted for syncope and concern for sepsis. ?? Plan: - Continue prophylaxis with Septra and Valcyte - Cellcept 1 g BID - Tacrolimus 3 mg BID (goal 8-10) - Daily Tacrolimus level - Vit D 2000 Units daily - Mag Oxide 800 mg BID - Prilosec 40 mg daily - melatonin 9 mg nightly - Daily CMP, GGT, CBC, Phos, D bili, Mg - PT-INR every other day ?? Assessment & Plan (07/28/2017 11:58 AM CDT): Assessment: 17yo female s/p OLT currently being treated for rejection with thymoglobulin admitted for fever, dehydration and concern for sepsis vs adrenal insufficiency. With tachycardia, tachypnea, elevated WBC and fever, pt met criteria for SIRS, but is now stable on IV Zosyn and Clindamycin and hasn't required additional hemodynamic support. Plan: Cardio- EKG normal in ED - on CR monitors - On aspirin 91mg at bedtime Resp: JESSENIA - Continuous pulse ox - End tidal CO2 monitoring while on PERFUSIONIST Neuro: significant diffuse myalgias throughout that are improved on PERFUSIONIST and Toradol - Fentanyl PERFUSIONIST - Basal 10mcg/hr, PERFUSIONIST dose 15mcg - Scheduled Toradol 30mg q6h x24hrs - Melatonin nightly Endo: S/p 1x dose of 50mg/m2 hydrocortisone at 1800 on 07/27 - 25mg/m2 q6 for next 24 hours ID: Flu negative - ID following - Continue home bactrim and valcyte ppx - Continue zosyn and Clinda - Blood and urine culture pending FEN/GI: s/p 4x 1L NS bolus. Obtaining ultrasound to rule out complication such as bleed from recent biopsy. - IV fluids at 100ml/hr, wean when tolerating PO - Resume regular diet - Vit D daily - Mag Oxide BID - Prilosec daily - Tacro 3mg BID (goal 8-10) - Tacro trough in am at 0800 07/28, pending - Colace and miralax daily for bowel regimen while on PERFUSIONIST - Continue prednisone Assessment & Plan (07/28/2017 2:48 AM CDT): Assessment: 17yo female s/p OLT currently being treated for rejection with thymoglobulin admitted for fever, dehydration and concern for sepsis. With tachycardia, tachypnea, elevated WBC and fever, pt meets criteria for SIRS. She was transferred to the PICU due to her potential circulatory failure. Plan: Cardio- EKG normal in ED - on CR monitors - On aspirin 91mg at bedtime Resp: JESSENIA - continuous pulse ox - End tidal CO2 monitoring while on PERFUSIONIST Neuro: significant diffuse myalgias throughout, received fentanyl in ED. - Fentanyl PERFUSIONIST - 1x dose of Toradol - Melatonin nightly Endo: Received 1x dose of 50mg/m2 hydrocortisone - Endo consulted for concern for adrenal suppression ID: Flu negative - ID consulted - Continue home bactrim and valcyte ppx - On zosyn and Clinda - Blood and urine culture pending FEN/GI: s/p 4x 1L NS bolus - IV fluids at 150ml/hr - Regular diet - Vit D daily - Mag Oxide BID - Prilosec daily - Tacro 3mg BID (goal 8-10) - Tacro trough in am at 0800 - Colace and miralax daily for bowel regimen while on PERFUSIONIST - Continue prednisone Assessment & Plan (07/27/2017 5:43 PM CDT): Assessment: Assessment: 17 yo female with PMH of hepatocellular carcinoma s/p liver transplant in 2012 with a history of rejection s/p steroids and thymoglobulin. Was recently admitted for thymoglobulin therapy about two weeks ago. Received thymoglobulin every other day for a total of five doses and received Prednisone 50mg on the days she didn't receive thymoglobumlin. Her labs and repeat liver biopsy showed improvement at the end of therapy. Patient was discharged on Prednisone 40mg with taper schedule. ?? Plan: - Continue prophylaxis with Septra and Valcyte - Cellcept 1 g BID - Tacrolimus 3 mg BID (goal 8-10) - Vit D 2000 Units daily - Mag Oxide 800 mg BID - Prilosec 40 mg daily - melatonin 9 mg nightly - Daily CMP, GGT, CBC, Phos, D bili, Mg - PT-INR every other day ?? Liver transplant rejection 07/16/2017 1 Assessment & Plan (01/18/2020 5:30 PM CDT): Concern for some element of liver transplant rejection. Saw [facility] [employer] in November--not recommended to have another follow up until . Never had repeat liver ultrasound performed in October. Itching complaint could be a side effect of Tacrolimus which is now being used TID. Also with bleeding gums. [facility] Recommendations: 1. checking coags & bile acids 2. Should have liver ultrasound performed and report forwarded to [facility] [employer]. 3. Previously counseled that it was acceptable to breastfeed on Tacrolimus Abdominal pain, right upper quadrant 03/21/2017 07/16/2017 Overview (03/22/2017): Margoth is an 17 yo F with history of HCC s/p liver transplant, here for persistently elevated transaminases and elevated T/D bilirubin and acute abd pain. Differential include obstructive process, rejection, infection. Medication side effect less likely given previous admissions.?? 1.CBC, CMP, DBili, GGT, PT/INR- not marked increased 2. Follow up with Dr. Walker on Wednesday with follow up labs as above ?? Total bilirubin, elevated 03/21/2017 Assessment & Plan (03/21/2017 7:22 PM OPERATION SHIFT SUPERVISOR): Margoth is an 17 yo F with history of HCC s/p liver transplant, here for persistently elevated transaminases and elevated T/D bilirubin. Differential include obstructive process, rejection, infection. Medication side effect less likely given previous admissions.?? 1. Admit to GI, Dr. De Anda 2. Labs in AM-CBC, CMP, DBili, GGT, PT/INR 3. Strict I&Os 4. NPO at midnight 5. Will d/w transplant team Elevated liver enzymes and D irect Hyperbilirubinemia 03/15/2017 09/17/2019 Assessment & Plan (03/20/2017 10:55 AM OPERATION SHIFT SUPERVISOR): Assessment: Margoth is an 17-year-old female with a history of hepatocellular carcinoma s/p liver transplant in 2012 who presented on 03/15 with persistent elevated transaminases and conjugated hyperbilirubinemia. When she was admitted on 03/07, the leading diagnosis was adverse effect of nortriptyline. However, despite discontinuation of the nortriptyline, the patient's total and direct bilirubin levels had been increasing. MRCP showed narrowing of the right biliary duct, and liver biopsy showed acute rejection of the engrafted liver. IV methylprednisolone therapy was initiated on 03/17. Total bilirubin and direct bilirubin levels continue to trend downward, as do the ALT and AST. Plan: - give IV methylprednisolone 40 mg at 14:30 - start PO prednisone 20 mg BID tomorrow morning - continue with tacrolimus 2 mg BID - continue with esomeprazole 40 mg daily - discharge after IV methylprednisolone dose this afternoon - follow-up labs, including tacrolimus level, on Wednesday, 03/23 - follow-up with outpatient GI on 03/26 - continue EVENTS SOLUTIONS CONSULTANT medications ASA 81 mg PO daily Cholecalciferol 2000 units PO qd Ferrous sulfate 325 mg PO BID Hydroxyzine 25 mg PO qhs Magnesium oxide 400 mg qd Mycophenolate 500 mg PO BID Assessment & Plan (03/19/2017 11:23 AM OPERATION SHIFT SUPERVISOR): Assessment: Margoth is an 17-year-old female with a history of hepatocellular carcinoma s/p liver transplant in 2012 who presented on 03/15 with persistent elevated transaminases and conjugated hyperbilirubinemia. When she was admitted on 03/07, the leading diagnosis was adverse effect of nortriptyline. However, despite discontinuation of the nortriptyline, the patient's total and direct bilirubin levels had been increasing. MRCP showed narrowing of the right biliary duct, and liver biopsy showed acute rejection of the engrafted liver. Total bilirubin and direct bilirubin levels are trending downward, as are the ALT and AST. The tacrolimus serum level of 4.8 is suboptimal. Plan: - continue with methylprednisolone taper - switch to PO prednisone at discharge - increase the dose of tacrolimus to 2 mg BID - discharge tomorrow (03/20) evening after last dose of methylprednisolone 40 mg IV q6h - increase esomeprazole to 40 mg daily - continue EVENTS SOLUTIONS CONSULTANT medications ASA 81 mg PO daily Cholecalciferol 2000 units PO qd Ferrous sulfate 325 mg PO BID Hydroxyzine 25 mg PO qhs Magnesium oxide 400 mg qd Tacrolimus 1.5 mg qAM, 2 mg qhs Mycophenolate 500 mg PO BID Assessment & Plan (03/18/2017 2:09 PM OPERATION SHIFT SUPERVISOR): Assessment: Margoth is an 17-year-old female with a history of hepatocellular carcinoma s/p liver transplant in 2012 who presented on 03/15 with persistent elevated transaminases and conjugated hyperbilirubinemia. When she was admitted on 03/07, the leading diagnosis was adverse effect of nortriptyline. However, despite discontinuation of the nortriptyline, the patient's total and direct bilirubin levels have been increasing. Differential includes biliary obstruction vs transplant rejection. MRCP showed narrowing of the right biliary duct, and liver biopsy showed acute rejection of the engrafted liver. The pierre colored stools are likely a consequence of the conjugated hyperbilirubinemia. Plan: - started methylprednisolone yesterday evening; continue with methylprednisolone treatment - daily liver function panels - continue EVENTS SOLUTIONS CONSULTANT medications ASA 81 mg PO daily Cholecalciferol 2000 units PO qd Ferrous sulfate 325 mg PO BID Hydroxyzine 25 mg PO qhs Magnesium oxide 400 mg qd Tacrolimus 1.5 mg qAM, 2 mg qhs Mycophenolate 500 mg PO BID Assessment & Plan (03/18/2017 1:46 PM OPERATION SHIFT SUPERVISOR): Assessment: 17 y/o female with history of hepatocellular carcinoma s/p liver transplant in 2012 presenting with persistently elevated transaminases and elevated Direct Bilirubin despite discontinuing Nortriptyline during last admission. Repeat labs on admission with ALT 343, AST 223, Direct Bilirubin 3.82. Tbili was 6.0 today and Dbili was 4.88. ALP increased from 281 to 304 but AST and ALT remain elevated and stable. Patient will likely go home once steroid dose is lower and will continue on low dose daily steroids. Plan: -Liver biopsy confirmed acute rejection and patient started on 5 day steroid taper. Will finish 250mg Q6 dose this evening and will then begin 50mg q6. Steroid taper: Day 1-5 with solumedrol Day 1 250mg Q6- finish today Day 2 50mg Q6- start tonight Day 3 40mg Q6 Day 4 30mg Q6 Day 5 20mg Q6 She will then transition to 20mg Prednisone daily - continue checking daily LFT's and Prograf levels (prograf goal 2-4) - follow up with Dr. Walker for further dispo plan Continue Home meds: -ASA 81mg PO daily -Cholecalciferol 2000 Units PO Qday -Ferrous Sulfate 325mg PO BID -Hydroxyzine 25mg PO QHS -Mag Ox 400mg Qday -Cellcept 500mg PO BID -Prograf 1.5mg QAM and 2mg QPM Assessment & Plan (03/17/2017 2:01 PM OPERATION SHIFT SUPERVISOR): Assessment: 17 y/o female with history of hepatocellular carcinoma s/p liver transplant in 2012 presenting with persistently elevated transaminases and elevated Direct Bilirubin despite discontinuing Nortriptyline during last admission. Repeat labs on admission with ALT 343, AST 223, Direct Bilirubin 3.82. Dbili rising now to 4.02. MRCP showed narrowing of the right biliary duct immediately proximal to junction that forms the common bile duct with minimal prominence to the biliary tree proximal to stricture.Splenomegaly. Final read on liver biopsy is pending. Plan: -Liver biopsy suggestive of acute rejection, will need to follow with Dr. Walker for definitive plan as she will likely require steroids but patient is not accepting of this at this time. Continue Home meds: -ASA 81mg PO daily -Cholecalciferol 2000 Units PO Qday -Ferrous Sulfate 325mg PO BID -Hydroxyzine 25mg PO QHS -Mag Ox 400mg Qday -Cellcept 500mg PO BID -Prograf 1.5mg QAM and 2mg QPM Assessment & Plan (03/17/2017 1:23 PM OPERATION SHIFT SUPERVISOR): Assessment: Margoth is an 17-year-old female with a history of hepatocellular carcinoma s/p liver transplant in 2012 who presented on 03/15 with persistent elevated transaminases and conjugated hyperbilirubinemia. When she was admitted on 03/07, the leading diagnosis was adverse effect of nortriptyline. However, despite discontinuation of the nortriptyline, the patient's total and direct bilirubin levels have been increasing. Differential includes biliary obstruction vs transplant rejection. MRCP showed narrowing of the right biliary duct. The final read on the liver biopsy has not yet been released; however, the pathologist called the attending and stated that the results are concerning for rejection. Plan: - final results of liver biopsy pending - if rejection is confirmed, consider corticosteroids; patient, however, is reluctant to repeat a steroid regimen due to weight gain with the previous steroid treatment - continue EV[employer] SOLUTIONS CONSULTANT medications ASA 81 mg PO daily Cholecalciferol 2000 units PO qd Ferrous sulfate 325 mg PO BID Hydroxyzine 25 mg PO qhs Magnesium oxide 400 mg qd Tacrolimus 1.5 mg qAM, 2 mg qhs Mycophenolate 500 mg PO BID Assessment & Plan (03/16/2017 2:07 PM OPERATION SHIFT SUPERVISOR): Assessment: 17 y/o female with history of hepatocellular carcinoma s/p liver transplant in 2012 presenting with persistently elevated transaminases and elevated Direct Bilirubin despite discontinuing Nortriptyline. Liver US w/ doppler was WNL at last admission. Labs were trending downward at discharge, but repeat on 03/08 demonstrated ALT 448, AST 275 and Direct Bili 3.72. GGT was WNL. Repeat labs on admission with ALT 343, AST 223, Direct Bilirubin 3.82. Dbili rising now to 4.02. MRCP showed narrowing of the right biliary duct immediately proximal to junction that forms the common bile duct with minimal prominence to the biliary tree proximal to stricture.Splenomegaly. Still concern for rejection. Plan: Liver Biopsy today Post op H&H and bedrest for 4 hours Continue Home meds: -ASA 81mg PO daily -Cholecalciferol 2000 Units PO Qday -Ferrous Sulfate 325mg PO BID -Hydroxyzine 25mg PO QHS -Mag Ox 400mg Qday -Cellcept 500mg PO BID -Prograf 1.5mg QAM and 2mg QPM Assessment & Plan (03/16/2017 10:50 AM OPERATION SHIFT SUPERVISOR): Assessment: Margoth is an 17-year-old female with a history of hepatocellular carcinoma s/p liver transplant in 2012 who presented on 03/15 with persistent elevated transaminases and conjugated hyperbilirubinemia. When she was admitted on 03/07, the leading diagnosis was adverse effect of nortriptyline. However, despite discontinuation of the nortriptyline, the patient's total and direct bilirubin levels have been increasing. Differential includes biliary obstruction vs transplant rejection. The MRCP was performed to determine if there is dilation of the common bile duct. If the MRCP is normal, liver biopsy will be performed. Plan: - Liver biopsy this afternoon if MRCP is deemed unremarkable - NPO until the liver biopsy has been completed Assessment & Plan (03/15/2017 3:28 PM OPERATION SHIFT SUPERVISOR): Assessment: 17 y/o female with history of hepatocellular carcinoma s/p liver transplant in 2012 presenting with persistently elevated transaminases and elevated Direct Bilirubin despite discontinuing Nortriptyline. Liver US w/ doppler was WNL at last admission. Labs were trending downward at discharge, but repeat on 03/08 demonstrated ALT 448, AST 275 and Direct Bili 3.72. GGT was WNL. Repeat labs today with ALT 343, AST 223, Direct Bilirubin 3.82. Concern for biliary obstructed vs rejection. Plan: Admit to [facility], Dr. De Anda NPO, IVMF until MRCP MRCP today to evaluate for obstructive process Possible ERCP if positive MRCP liver biopsy tomorrow if MRCP unrevealing, will need to be NPO again at midnight Continue Home meds: -ASA 81mg PO daily -Cholecalciferol 2000 Units PO Qday -Ferrous Sulfate 325mg PO BID -Hydroxyzine 25mg PO QHS -Mag Ox 400mg Qday -Cellcept 500mg PO BID -Prograf 1.5mg QAM and 2mg QPM Repeat HFP, PT/INR, GGT, and Bili in the AM Chronic daily headache 03/08/201701/17 Assessment & Plan (04/21/2017 3:25 PM OPERATION SHIFT SUPERVISOR): Chronic daily headaches (mixed pattern of migraines and tension type headaches) worsened by several lifestyle issues such as fluctuant appetite, poor sleep, psychosocial stressors/busy lifestyle, concomitant medical issues (h.o liver transplant and recent rejection) and related medications etc. Has significant neck muscle tension which are trigger points for headaches also. 1. Keep headache diary 2. Maintain active lifestyle - encourage regular exercise and slowing down on work etc as possible 3. Refer to PT for neck muscle tightness 4. Eat healthy diet, and do not skip meals 5. Drink plenty of water, and avoid caffeine regularly. 6. Sleep: 1. Maintain good sleep routine. 2. Avoid distractions at bedtime such as TV, computer. 3. Get at least 8-10 hours of sleep nightly 4. Can try splitting melatonin dose as discussed - take 3 mg earlier int he evening (anxiolytic dose) and then additional 5 mg at bedtime (sedative dose). 5. Can follow up with Sleep clinic for further interventions, if desired. 7. Do not use pain medication (such as Tylenol, Ibuprofen) more than 2-3 times/week in order to avoid medication overuse headaches 8. Use naproxen 500 mg tabs - 1 tab as needed only for severe headache. Can take Zofran for associated nausea. 9. Refer to psychology to discuss Cognitive Behavior therapy for pain/headaches, to help improve coping strategies. Can see psychology closer to home if possible, for CBT. If not, can schedule to see Elsa Thornton in psychology here. 10. Continue with supplements - magnesium. Can also try others such as Fever Few, Butterbur, CoQ10, Riboflavin etc. 11. Can try acupuncture as planned 12. Can consider Botox for headaches - transition to adult neurology (either at [facility] or elsewhere). 13. Call in 4-6 weeks with update regarding headaches, sooner for concerns Assessment & Plan (03/09/2017 11:32 AM OPERATION SHIFT SUPERVISOR): Assessment: Has not had a headache over the past 24 hours. The patient has a history of migraine headaches. She was started on nortriptyline, which seemed to be helping with the migraines but the TCA is thought to be the probable cause of her elevated liver enzymes. Therefore, the patient needs to follow-up with neurology to determine an appropriate drug regimen for her migraines. In addition, the MRI and MRV were both normal, ruling out dural venous thrombosis. Plan: 1. Continue with Ibuprofen PRN for headaches 2. Follow up with headache clinic on Wednesday, 03/15 Assessment & Plan (03/08/2017 10:50 AM OPERATION SHIFT SUPERVISOR): Assessment: Margoth has a history of migraine headaches and follows with Neurology. She was tried on Topamax recently but stopped due to unwanted side effects. She was then started on Amitriptyline for migraine prophylaxis. As per Neurology, these medications may cause liver toxicity. Along with this, her headaches are new and the pain is changed from typical migraine. This is concerning as she has a history of cancer and is at increased risk of thrombosis/clotting. Her new headaches could potentially be a dural sinus thrombosis and will need to effectively be ruled out. ?? Plan: - Neurology consulted - Ordered MRI brain and MRV to assess for Dural Sinus Thrombosis. - Will continue with iburofen and rizatriptan for FARAH pain Assessment & Plan (03/08/2017 1:03 AM OPERATION SHIFT SUPERVISOR): Assessment: Margoth has a history of migraine headaches for which she follows with Neurology. She was previously started on Topamax but stopped taking this due to dislike of how it made her feel. She was recently started on Amitriptyline for migraine prophylaxis. However, some research shows that this can affect liver function in some patients. Plan: - Neurology consulted, recs appreciated - Consider starting Topamax 50mg qHS - Consider migraine cocktail if headache worsens or becomes more like her classic migraine Elevated transaminase level 03/07/2017 01/18/2020 Assessment & Plan (03/09/2017 11:36 AM OPERATION SHIFT SUPERVISOR): Assessment: The patient's elevated liver enzymes are likely secondary to a side effect of the nortriptyline that was given 1.5 weeks prior to admission for migraine headaches. Liver ultrasound was normal, and liver enzymes are trending downward. The patient's symptoms have resolved, except for the pruritis for which she is being given hydroxyzine PRN. Plan: 1. Continue with the hydroxyzine for pruritis 2. Continue with [employer] CONSULTANT anti-rejection medications, tacrolimus, mycophenolate, ferrous sulfate, ASA, magnesium oxide, and vitamin D 3. Follow-up liver panel on Wednesday, 03/13 at [facility] Assessment & Plan (03/08/2017 10:46 AM OPERATION SHIFT SUPERVISOR): Assessment: Margoth Aguila is a 16 y.o. female with hx of hepatocellular carcinoma s/p liver transplant in 2012 and migraines who presents with about 2-3 weeks of nausea, vomiting, headaches, diffuse itching, and bruising and was found to have elevated transaminases on admission. Etiology may be from transplant rejection vs medication side effect vs acute infection. Her transaminases have trended down overnight as her AST is now 271 from 333, ALT is 527 from 621, and ALP is 195 from 225. Tbili is 3.0 from 3.9 and D bili is 2.37 from 3.0. Given her response and lack of distinct abdominal symptoms coupled with her benign liver ultrasound this makes transplant rejection and acute infectious process less likely. She is likely suffering from acute hepatic toxicity secondary to her TCA usage for her migraines. Other possible etiologies will be ruled out with lab work looking at viral etiologies, and TCA usage will be discontinued. ?? Plan: - mIVF with D5 1/2NS 20 CHIN - EBV/ CMV titers pending - PT/INR normal, no need for Vit k at this time - Continue home anti-rejection medications, tacrolimus, cellcept, FE, MgOx, Vit B, Vit D, ASA Assessment & Plan (03/08/2017 1:00 AM OPERATION SHIFT SUPERVISOR): Assessment: Margoth Aguila is a 16 y.o. female with hx of hepatocellular carcinoma s/p liver transplant in 2012 and migraines who presents with about 2-3 weeks of nausea, vomiting, headaches, diffuse itching, and bruising and was found to have elevated transaminases on labs drawn today. Differential i Plan: - Admit to Pediatric GI, Dr. De Anda - NPO at midnight - Abdominal US with doppler in AM - mIVF with D5 1/2NS 20 CHIN - Repeat following labs in AM: GGT, CMP, PT/INR - Obtain EBV/ CMV titers - Follow up result of PT/INR - Will give 5 mg IV Vitamin K if INR elevated - Continue home anti-rejection medications Primary snoring 06/09/2015 01/18/2020 Overview (06/09/2015): Neg diag psg 05/25/15 RDI 2.1 AHI: 0.9 Obstructive AHI: 0.9 Min 02 sat 90% Plm index 7.4 Liver transplant complication 10/31/2013 01/18/2020 Assessment & Plan (05/20/2017 9:54 PM OPERATION SHIFT SUPERVISOR): Assessment: Margoth is an 17 year old female with a history of hepatocellular carcinoma s/p liver transplant in who presents with persistently elevated transaminases and elevated T/D bilirubin. Most recent liver biopsy was in 02/2017 which confirmed acute rejection after which she was started on steroids but has been poorly complaint with her meds. She was admitted for repeat biopsy as rejection was the most likely etiology of her elevated transaminases. Biopsy on day of admission confirmed acute rejection and she was immediately started on high dose IV solumedrol. ?? Plan: - Wean to IV solumedrol 30 mg q6h - Regular diet - VS q8h - Daily HFP, GGT, PT/INR - Psychology consulted, note to follow - Continue home medications -ASA 81mg PO daily -Cholecalciferol 2000 Units PO Qday -Ferrous Sulfate 325mg PO BID -Mag Ox 400mg BID -Cellcept 500mg PO BID -Prograf 2mg BID Assessment & Plan (05/20/2017 2:25 PM OPERATION SHIFT SUPERVISOR): Assessment: Margoth Aguila is a 17 yo with HCC s/p transplant in 2012 who px in acute rejection. She is receiving a course of steroids and continues to improve. Her labs continue to downtrend. Plan: Continue steroid tape Possible to be done from home Check with Dr. Walker about finishing course outside of hospital Currently on dose 2 of 4 Salumedrol 40 mg Labs - daily hepatic function test, q2d tacro trough Possible to do via home health as well Continue home meds Assessment & Plan (05/19/2017 1:52 PM OPERATION SHIFT SUPERVISOR): Assessment: Margoth is an 17 year old female with a history of hepatocellular carcinoma s/p liver transplant in who presents with persistently elevated transaminases and elevated T/D bilirubin. Most recent liver biopsy was in 02/2017 which showed acute rejection. She was started on steroids but has been poorly complaint with her meds. She required admission for repeat biopsy as rejection was the most likely etiology of her elevated transaminases. Biopsy on day of admission confirmed acute rejection and she was immediately started on high dose IV solumedrol. ?? Plan: - Wean to IV solumedrol 50 mg q6h x4 doses - Decrease to 40 mg q6h x4 doses - Regular diet - VS q8h - Daily HFP, GGT, PT/INR - Psychology consulted - Continue home medications -ASA 81mg PO daily -Cholecalciferol 2000 Units PO Qday -Ferrous Sulfate 325mg PO BID -Mag Ox 400mg BID -Cellcept 500mg PO BID -Prograf 2mg BID Assessment & Plan (05/18/2017 11:19 AM OPERATION SHIFT SUPERVISOR): Assessment: Margoth is an 17 year old female with a history of hepatocellular carcinoma s/p liver transplant in who presents with persistently elevated transaminases and elevated T/D bilirubin. Most recent liver biopsy was in 02/2017 which showed acute rejection. She was started on steroids but has been poorly complaint with her meds. She required admission for repeat biopsy as rejection was the most likely etiology of her elevated transaminases. Biopsy on day of admission confirmed acute rejection and she was immediately started on high dose IV solumedrol. ?? Plan: - Continue IV solumedrol 250 mg q6h x4 doses - wean to IV solumedrol 50 mg q6h x4 doses - Plan for PICC placement today to establish stable vascular access for IV steroid wean as Margoth is a difficult stick and loses her IVs frequently. - Regular diet - VS q8h - Daily HFP, GGT, PT/INR - Continue home medications -ASA 81mg PO daily -Cholecalciferol 2000 Units PO Qday -Ferrous Sulfate 325mg PO BID -Mag Ox 400mg BID -Cellcept 500mg PO BID -Prograf 2mg BID Assessment & Plan (05/17/2017 1:44 PM OPERATION SHIFT SUPERVISOR): Assessment: Margoth is an 17 year old female with a history of hepatocellular carcinoma s/p liver transplant in who presents with persistently elevated transaminases and elevated T/D bilirubin. Most recent liver biopsy was in 02/2017 which showed acute rejection. She was started on steroids but has been poorly complaint with her meds. Therefore, most likely cause for elevated LFTs is rejection. Other causes could also be an obstructive process given that she has narrowing of the right biliary duct and infectious etiology considering past history of cholangitis. ?? Plan: - Admit to Gastroenterology, Dr. Keith - Liver biopsy today - Consider steroid wean, pending pathology report - Diet clears, advance as tolerated - Bed rest for 4hrs after biopsy - Hgb/Hct 4hrs after biopsy - Vitals q15min for 1st hour, then routine - HFP, GGT, PT/INR tomorrow AM - Continue home medications -ASA 81mg PO daily -Cholecalciferol 2000 Units PO Qday -Ferrous Sulfate 325mg PO BID -Mag Ox 400mg BID -Cellcept 500mg PO BID -Prograf 2mg BID Abdominal pain, generalized 08/15/2013 08/28/2019 Menstrual cramps 08/15/2013 08/28/2019 Myofascial pain 08/15/2013 09/17/2019 Transplant rejection 03/15/2013 020 Assessment & Plan (07/23/2017 7:37 PM CDT): Assessment: 17 yo female with PMH of hepatocellular carcinoma s/p liver transplant in 2012 admitted after biopsy earlier this week showed moderate rejection. Patient is asymptomatic otherwise. Admitted for thymoglobulin treatment. PICC line placed on 07/16. She underwent liver biopsy to re-evaluate rejection on 07/23. Plan: - Thymoglobulin every other day 125 mg for total of 5 doses, pretreat with solumedrol, tylenol and benadryl each time. - Prednisone 50 mg every other day, on days not receiving thymoglobulin - Follow up biopsy results - Regular diet - Continue prophylaxis with Septra and Valcyte - Cellcept 1 g BID - Tacrolimus 3 mg BID (goal 8-10) - Vit D 2000 Units daily - Mag Oxide 800 mg BID - Nexium 40 mg daily - melatonin 9 mg nightly - Daily CMP, GGT, CBC, Phos, D bili, Mg - PT-INR every other day Assessment & Plan (07/22/2017 8:08 PM CDT): Assessment: 17 yo female with PMH of hepatocellular carcinoma s/p liver transplant in 2012 admitted after biopsy earlier this week showed moderate rejection. Patient is asymptomatic otherwise. Admitted for thymoglobulin treatment. PICC line placed on 07/16. Plan: - Thymoglobulin every other day 125 mg for total of 5 doses, pretreat with solumedrol, tylenol and benadryl each time. - Prednisone 50 mg every other day, on days not receiving thymoglobulin - Repeat biopsy tomorrow to re-evaluate rejection - NPO at midnight - Continue prophylaxis with Septra and Valcyte - Cellcept 1 g BID - Tacrolimus 3 mg BID (goal 8-10), will check levels tomorrow - Vit D 2000 Units daily - Mag Oxide 800 mg BID - Nexium 40 mg daily - melatonin 9 mg nightly - Daily CMP, GGT, CBC, Phos, D bili, Mg - PT-INR every other day - Regular diet Assessment & Plan (07/21/2017 3:28 PM CDT): Assessment: 17 yo female with PMH of hepatocellular carcinoma s/p liver transplant in 2012 admitted after biopsy earlier this week showed moderate rejection. Patient is asymptomatic otherwise. Admitted for thymoglobulin treatment. PICC line placed on 07/16. Plan: - Thymoglobulin every other day 125 mg for total of 5 doses, pretreat with solumedrol, tylenol and benadryl each time. Patient will receive 4rth dose tomorrow. - Repeat biopsy near end of the week to re-evaluate rejection - Start prophylaxis with Septra and Valcyte - Cellcept 1 g BID - Tacrolimus 3 mg BID (goal 8-10), will check levels on Wednesday - Vit D 2000 Units daily - Mag Oxide 800 mg BID - Prednisone 50 mg every other day, on days not receiving thymoglobulin - Nexium 40 mg daily - melatonin 9 mg nightly - Daily CMP, GGT, CBC, Phos, D bili, Mg - PT-INR every other day - Regular diet Assessment & Plan (07/21/2017 3:23 PM CDT): Assessment: 17 yo female with PMH of hepatocellular carcinoma s/p liver transplant in 2012 admitted after biopsy earlier this week showed moderate rejection. Patient is asymptomatic otherwise. Admitted for thymoglobulin treatment. PICC line placed on 07/16. Plan: - Thymoglobulin every other day 125 mg for total of 5 doses, pretreat with solumedrol, tylenol and benadryl each time. Patient will receive 4rd dose tomorrow. - Repeat biopsy near end of the week to re-evaluate rejection - Start prophylaxis with Septra and Valcyte - Cellcept 1 g BID - Tacrolimus 3 mg BID (goal 8-10), will check levels on Wednesday - Vit D 2000 Units daily - Mag Oxide 800 mg BID - Prednisone 50 mg every other day, on days not receiving thymoglobulin - Nexium 40 mg daily - melatonin 9 mg nightly - Daily CMP, GGT, CBC, Phos, D bili, Mg - PT-INR every other day - Regular diet Assessment & Plan (07/20/2017 2:39 PM CDT): Assessment: 17 yo female with PMH of hepatocellular carcinoma s/p liver transplant in 2012 admitted after biopsy earlier this week showed moderate rejection. Patient is asymptomatic otherwise. Admitted for thymoglobulin treatment. PICC line placed on 07/16. Plan: - Thymoglobulin every other day 125 mg for total of 5 doses, pretreat with solumedrol, tylenol and benadryl each time. Patient will receive 3rd dose today. - Repeat biopsy near end of the week to re-evaluate rejection - Start prophylaxis with Septra and Valcyte - Cellcept 1 g BID - Tacrolimus 3 mg BID (goal 8-10) - Vit D 2000 Units daily - Mag Oxide 800 mg BID - Prednisone 50 mg every other day, on days not receiving thymoglobulin - Nexium 40 mg daily - melatonin 9 mg nightly - Daily CMP, GGT, CBC, Phos, D bili, Mg - PT-INR every other day - Regular diet Assessment & Plan (07/19/2017 1:16 PM CDT): Assessment: 17 yo female with PMH of hepatocellular carcinoma s/p liver transplant in 2012 admitted after biopsy earlier this week showed moderate rejection. Patient is asymptomatic otherwise. Admitted for thymoglobulin treatment. PICC line placed on 07/16. Plan: - Thymoglobulin every other day 125 mg for total of 3 doses, pretreat with solumedrol, tylenol and benadryl each time. Patient will receive last dose today - Cellcept 1 g BID - Tacrolimus 3 mg BID (goal 8-10) - Vit D 2000 Units daily - Mag Oxide 800 mg BID - Prednisone 50 mg every other day, on days not receiving thymoglobulin - Nexium 40 mg daily - melatonin 9 mg nightly - Daily CMP, GGT, CBC, Phos, D bili, Mg and tacrolimus level daily - PT-INR every other day - Regular diet Assessment & Plan (07/18/2017 1:34 PM CDT): Assessment: 17 yo female with PMH of hepatocellular carcinoma s/p liver transplant in 2012 admitted after biopsy earlier this week showed moderate rejection. Patient is asymptomatic otherwise. Admitted for thymoglobulin treatment. PICC line placed on 07/16. Plan: - Thymoglobulin every other day 125 mg for total of 3 doses, will receive dose today - pretreat with solumedrol, tylenol and benadryl each time. Last dose to be on 07/20 - Cellcept 1 g BID - Tacrolimus 3 mg BID - Vit D 2000 Units daily - Mag Oxide 800 mg BID - Prednisone 50 mg every other day, on days not receiving thymoglobulin - Nexium 40 mg daily - melatonin 9 mg nightly - Daily CMP, GGT, CBC, Phos, D bili, Mg and tacrolimus level daily - PT-INR every other day - Regular diet Assessment & Plan (07/17/2017 12:39 PM CDT): Assessment: 17 yo female with PMH of hepatocellular carcinoma s/p liver transplant in 2012 admitted after biopsy earlier this week showed moderate rejection. Patient is asymptomatic otherwise. Admitted for thymoglobulin treatment. PICC line placed on 07/16. Plan: - Thymoglobulin every other day 125 mg, next dose tomorrow (07/18) - pretreat with steroids, tylenol and benadryl - Cellcept 1 g BID - Tacrolimus 3 mg BID - Vit D 2000 Units daily - Mag Oxide 800 mg BID - Prednisone 50 mg every other day, on days not receiving thymoglobulin - Nexium 40 mg daily - melatonin 9 mg nightly - Daily CMP, GGT, CBC, Phos, D bili, Mg and tacrolimus level daily - PT-INR every other day - Regular diet Assessment & Plan (07/16/2017 4:28 PM CDT): Assessment: 17 yo female with PMH of hepatocellular carcinoma s/p liver transplant in 2012 admitted after biopsy earlier this week showed moderate rejection. Patient is asymptomatic otherwise. Admitted for thymoglobulin treatment. PICC line placed today. Plan: - Admit to Dr. Portillo, GI - Start Thymoglobulin every other day 125 mg - Cellcept 1 g BID - Tacrolimus 3 mg BID - Vit D 2000 Units daily - Mag Oxide 800 mg BID - Prednisone 50 mg every other day - Nexium 40 mg daily - melatonin 9 mg nightly - Daily CMP, GGT, CBC, Phos, D bili, Mg daily - PT-INR every other day - Regular diet Assessment & Plan (04/09/2013 6:56 PM OPERATION SHIFT SUPERVISOR): Assessment: Margoth Aguila is a 13 yo with HCC- Fibrolamellar variant who is s/p liver transplant in 08/26/12. Initially treated for acute rejection in February 2013. Repeat biopsy done due to elevated transaminases despite steroids. Initial concern of possible denovo autoimmune hepatitis but workup negative. Current biopsy final read suggests rejection with improvement from previous biopsy, however some plasma cells were identified indicating minor cellular rejection. Liver U/S with doppler showed suspicious clot in main portal vein, which is non-occlusive and unusual. (04/05) CT shows: open portal vein and right hepatic arterial portal veinous fistula. Review of imaging shows small pseudocyst in relation to the right hepatic artery (addened report).->this is likely to resolve on its own however if it does not cath intervention will be needed. Has been receiving IV steroids for rejection and tolerating it well. Plan: - To complete day 3 of anti rejection protocol - plan to transition to PO steroids this evening - if tolerates PO wean, likely discharge early tomorrow - oral prednisone wean schedule at discharge: -April 10-April 11 50 mg qam, 40 mg qpm -April 12-April 21 30 mg qam, 30 mg qpm -April 22- May 01 30 mg qam, 20 mg qpm -May 02-May 11 30 mg qam, 10 mg qpm -May 12--continue daily 30 mg qam - AM labs: tacro, cbc, lft's, mg, ggt - Follow BP and blood sugars given steroid burst. - Continue Tacrolimus 3 mg BID - Continue home medications - Plan for doppler US in 2 weeks Assessment & Plan (04/08/2013 10:01 PM OPERATION SHIFT SUPERVISOR): Assessment: Margoth Aguila is a 13 yo with HCC- Fibrolamellar variant who is s/p liver transplant in 08/26/12. Given concern for elevated transaminases and previous biopsy indicating denovo autoimmune hepatitis/rejection, patient was followed up for repeat biopsy today and for further work up. Current biopsy final read suggests rejection with improvement from previous biopsy, however some plasma cells were identified indicating minor cellular rejection. Liver U/S with doppler showed suspicious clot in main portal vein, which is non-occlusive and unusual. (04/05) CT shows: open portal vein and right hepatic arterial portal veinous fistula. Review of imaging shows small pseudocyst in relation to the right hepatic artery (addened report).->this is likely to resolve on its own however if it does not cath intervention will be needed. Transaminases were trending up after previous anti rejection protocol. Trend now shows some improvement with levels since this hospital course. ALT: 304->334->251->257->257, AST: 108-->88->65->74->55, and IGG level at 837. DDx to include: Elevated transaminases likely from acute cellular rejection which seems to be resolving indicated from current labs. Autoimmune etiology (now very unlikely with decreasing IGG and negative NUBIA) vs Portal vein clot (not likely given it is no longer apparent in f/u imaging). Demetrius's disease unlikely with low ceruloplasmin level. Given the current episode she remains afebrile and asymptomatic at this time. Plan: - Per anti rejection protocol with plan for steroid pulse and wean: Day 1: 25 0 mg I.V. q 6 hrs. x 4 (1g/day) Day 2: 50 mg I.V. q 6 hrs. x 4 (200 mg/day) Day 3 40 mg IV 6 hours X 4 (160 mg/day) Day 4 30 mg IV q 6 hours X 4 (120 mg/day) Day 5 20 mg IV q 6 hours X4 (80 mg/day) Day 6 20 mg IV q 12 hours x2 (40 mg/day) Day 7 and ongoing po prednisone: (0.3mg/kg/day) max 20 mg/day - If D/C early consider PO slow taper at home - Follow BP and blood sugars given steroid burst. - Continue Tacrolimus 3 mg BID - Continue home medications - Daily CBC, Hepatic function panel, Mg level, GGT, Tacro level - Plan for re-imaging in 2 weeks Assessment & Plan (03/19/2013 12:21 PM OPERATION SHIFT SUPERVISOR): Assessment: Margoth is a 13yo with h/o hepatocellular carcinoma (Fibrolamellar variant) s/p liver transplant (08/2012) who was admitted for liver biospy to evaluate her elevated transaminases. 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 Transaminases have continued to decrease. Glucoses are being monitored due to steroid induced hyperglycemia. Tacrolimus level elevated at 10.5 today. Plan: - Continue steroid wean per rejection protocol - change to oral steroids today (prednisone 60mg PO BID) - Follow serum glucose q8hr - Decrease Tacro dose to 3mg BID - Recheck HFP and tacro level tomorrow AM - Regular diet - avoid refined sugars - Continue home meds: - Aspirin 81mg daily - Nexium 20mg BID - Cellcept 500mg BID - Tacrolimus 3mg BID - Valgancyclovir 900mg daily - Bactrim 400mg/80mg daily - Vitamin D 2,000IU daily Assessment & Plan (03/19/2013 11:08 AM OPERATION SHIFT SUPERVISOR): Assessment: Margoth is a 13yo with h/o hepatocellular carcinoma (Fibrolamellar variant) s/p liver transplant (08/2012) who was admitted for liver biospy to evaluate her elevated transaminases. 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 Transaminases have continued to decrease. Glucoses are being monitored due to steroid induced hyperglycemia. Plan: - Continue steroid wean - change to oral steroids today (prednisone 60mg PO BID) - Follow serum glucose q8hr - Recheck HFP and tacro level tomorrow AM - Regular diet - avoid refined sugars - Continue home meds: - Aspirin 81mg daily - Nexium 20mg BID - Cellcept 500mg BID - Tacrolimus 3.5mg BID - Valgancyclovir 900mg daily - Vitamin D 2,000IU daily Assessment & Plan (03/18/2013 10:34 AM OPERATION SHIFT SUPERVISOR): Assessment: Margoth is a 13 yo s/p liver transplant after HCC now with elevated transaminase levels, liver biopsy showing rejection Plan: - Steroids per rejection protocol - Continue home meds Hepatocellular carcinoma, fibrolamellar 03/23/2012 07/16/2017 Overview (08/26/2012): Liver transplant today for 7cm hepatocellular carcinoma, prep was performed overnight, all medications and post op labs entered per transplant cordinator. Will await further instruction for post op. Surgery should last 6 hours. Plan: -D5 lactate ringer @ 90 ml/hr -Pre-op medications ordered and held for procedure. -Pre-op labs ordered. -Transplant surgery resident to obtain consent for procedure -Blood bank to hold PRBC and FFP for procedure -environmental coordinator Gil are aware and will coordinate with OR -IP consult to pastoral care -IP consult to social work faculty member -environmental coordinator Cassia and Anthony are aware and will coordinate with OR -IP consult to pastoral care -IP consult to social work faculty member [employer] Patient 02/11/2012 0 Overview (02/11/2012): Simona Mcgee MA,CCLS is [facility] Medical Communication Specialist [phone]. HCC (hepatocellular carcinoma) 01/29/2012 07/16/2017 Overview (02/12/2012): 11 yo with HCC s/p [facility] 01[facility], d/c'ed on 02/04; presents to ED 02/07 with h/o daily fevers (Tmax 102), chills abdominal pain since d/c. Has been treating with 600mg Motrin; weaning off oxycontin (last dose to be 02/[address] scan in ED shows small focal collections of air in necrotic tumor area concerning for possible abscess/infection. Admitted for IV abx, pain control, and surgery consult. Plan at discharge: FEN/GI: --regular diet as tolerated --discontinue IVF and IV as po intake greatly improved --continue home bowel regimen of Miralax, Colace, Senna for daily soft stools --Zofran 4mg ODT Q6 hr prn nausea Heme/Onc: --Oxycontin 20mg PO BID tonight and tomorrow, then 10 mg BID x 3 days, then 10 mg QD x 3 days, then stop --Motrin 600mg po q6h prn fever, pain --oxycodone 5-10 mg po q4hr prn breakthrough pain --Bone scan negative for mets - to be listed for liver transplant --PO Sorafenib treatment to begin soon - 200 mg PO BID with increase to total of 300 mg BID if tolerating. ID --D/C home on cipro and flagyl for 7 more days to complete a 10 days course -- Per surgery: post-op fevers can last for weeks in patients who undergo TACE procedure. -- Flu shot 01/21/12 Pain, Anxiety, Sedation 01/29/201208/192020 Overview (01/31/2012): S/p chemo-embolization on 01/29/12 for HCC. Dilaudid PERFUSIONIST (due to extreme pruritis with morphine) not controlling pain well post-op. Ketamine improved control of pain and anxiety. Plan -Ketamine 0.2mg/kg/hr - Dilaudid 500mcg/ hr - Precedex 0.6mcg/kg/hr- wean to 0.4 - Zofran prn nausea q6h - Boluses Dilaudid PRN and Ativan PRN - Titrate meds as necessary for good pain control and wean as tolerated - Benadryl PRN - Bowel regimen with daily miralax and PRN dulcolax and senna - 1x dose lasix now due to net positive - Later today attempt to wean off precedex and then ketamine and transition to oral ketamine Respiratory distress 01/29/2012 018 Overview (01/31/2012): Secondary to pain control s/p procedure. Well controlled with O2 NC. Pt continues on NC for comfort and ETCO2 monitoring Plans -Wean O2 prn Sat >93% -Incentive spirometry q2h while awake Feeding problem 01/29/2012 07/16/2017 Overview (01/30/2012): Can start regular diet as tolerated with MIVF Migraine 03/10/2006 01/18/2020 Foot laceration 07/16/2017 Encounter for ultrasound to assess growth 01/31/2020 28 weeks gestation of 01/31/2020
--- OUTSIDE RECORDS SUMMARY | 2024-05-19 10:28 | XMS_ITS | Encounter Summary ---
Author Organization [facility] Health Address [address] [facility] [address] Care Team Providers Care Buffing And Sueding Machine Operator Name Role Phone Josiah Palacios MD Primary Care Provider [phone] Stephanie Lozano RN Unavailable Unav ailable Rei Ann PharmD Unavailable Unavai Tesfaye Rivera MD Primary Care Provider [phone] Frida De Los Santos MD Unavailable Mariama Rudd CERTIFIED SKI PATROLLER Unavailable [phone] Josiah Palacios MD Primary Care Provider [phone] Marcel Ram MD Unavailable [phone] Encounter Details Date Type Department Care Team (Late st Contact Info) Description 07/26/2017 Lab Requisition [facility] [address] [place] [address] Luz Cardona MD [address] [place] [address] Social History Tobacco Use Types Packs/Day Years Used Date Smoking Tobacco: Never Smokeless Tobacco: Never Alcohol Use Standard Drinks/Week Comments No 0 (1 standard drink = 0.6 oz pur e alcohol) Sex and Gender Information Value Date Recorded Sex Assigned at Not on file Gender Identity Not on file Sexual Orientation Not on file documented as of this encounter Functional Status Functional Status Response Date of Assess ment Is person deaf or have serious hearing difficult y? No 07/24/2017 Is person blind or have serious difficulty seein g? No 07/24/2017 Does person have serious dif ficulty walking/climbing stairs? No 07/24/2017 Does person have difficulty dressing/bathing? No 07/24/2017 Does person have difficulty doing errands alone? No 07/24/2017 Cognitive Status Response Date of Assessm ent Does person have difficulty concentrating/remembering/making decisions? No 07/24/2017 documented as of this encounter Plan of Treatment Upcoming Encounters Date Type Department Care Team (Late st Contact Info) Description 06/27/2024 10:50 AM CDT Office Visit [facility] - STUDENT FINANCE SPECIALIST [address] [facility] [address] [place] [address] Sabra Rocha MD [address] [facility] [address] [place] [address] 08/09/2024 3:00 PM CDT [facility] [place] [address] [place] [address] [phone] Chayo Tyson PA-C [address] [facility] DEPT [place] [phone] 10/30/2024 11:30 AM CDT Office Visit [facility] - GI [address] [place] [address] [phone] Juan Landry MD [address] [facility] 2L [place] [address] documented as of this encounter Visit Diagnoses Not on filedocumented in this encounter Additional Health Concerns Infection Onset Date Last Indicated Resolved Time COVID-19 Under Investigation 02/16/2020 02/16/2020 02/16/2020 3:58 AM CDT COVID-19 Confirmed 02/16/2020 02/16/2020 0 4:33 AM FIRE EQUIPMENT INSPECTOR documented as of this encounter Care Teams Buffing And Sueding Machine Operator Relationship Specialty Start Date End Date Josiah Palacios MD PCP - General Family Medicine 12/30/11 12/06/21 Tesfaye Baca MD [address] [place] [address] PCP - General 12/07/21 01/18/23 Frida De Los Santos MD [address] [facility] [address] [place] [address] PCP - Attributed-[employer] 07/18/22 3 Josiah Palacios MD [address] [place] [address] PCP - General Family Medicine 01/19/23 Marcel Ram MD [address] [address] PCP - Attributed-[employer] 01/17/23 4 Stephanie Lozano, MARINA Registered Nurse 12/16/16 Rei Ann, PharmD Pharmacist 01/12/17 Mariama Rudd MSW Outpatient Template Checker Care Management 12/08/2211/18 documented as of this encounter
--- OUTSIDE RECORDS SUMMARY | 2024-05-19 10:28 | XMS_ITS ---
Author Organization [facility] Health Address [address] [facility] [place] [address] Care Team Providers Care Chancery Clerk Name Role Phone Stephanie Lozano RN Unavailable Unav ailRei Richard PharmD Unavailable Unavai Josiah [place] MD Primary Care Provider [phone] Transplant Episode Liver Recipient [facility] ([place], [place]) - [facility] Transplanted on 08/26/2012 Marked as Active Follow-up on 08/26/2012 Liver CoordinatorStephanie Lozano RN Phone: N/A Fax: N/A Email: N/A Rejection History Noted Survival Rejection Treatment Biopsy Resolved 07/27/2017 4 years 11 months Liver transpla nt rejection (HCC) 08/28/2019 07/16/2017 4 years 10 months Liver transpla nt rejection (HCC) 02/16/2020 Infection History Noted Survival Infection Treatment Organism Resolved 01/26/2022 9 years 5 months Influenza Care Team Name Role Phone Fax Email Stephanie Lozano RN Liver Coordinator N/A N /A N/A Megan Kline MD Surgeon N/A N/A N/A Events Post-Transplant Pre-Transplant Admitted: 08/25/2012 Center waitlisted: 2 Transplanted: 08/26/2012 Discharged: 09/02/2012
--- OUTSIDE RECORDS SUMMARY | 2024-05-19 10:28 | XMS_ITS | Encounter Summary ---
Author Organization [facility] [employer] Address [address] [facility] [place] [address] Care Team Providers Care Engineering Technical Specialist Name Role Phone Josiah Palacios MD Primary Care Provider [phone] Mariama Rossi [facility] Unavailable Ave Cooley RN Unavailable Unavailab le ForistalStephanie RN Unavailable Unav ailable AnglimRei PharmD Unavailable Unavai Tesfaye Rivera MD Primary Care Provider [phone] Frida De Los Snatos MD Unavailable Mariama Rudd ECHO TECHNOLOGIST Unavailable [phone] Josiah Palacios MD Primary Care Provider [phone] Marcel Ram MD Unavailable [phone] Reason for Visit * Reason Onset Date Comments MEDICATION REFILL 01/16/2014 Encounter Details Date Type Department Care Team (Late st Contact Info) Description 01/16/2014 Telephone [facility] - [address] [address] Biju Walker MD [facility] [place] [address] MEDICATION REFILL Social History Tobacco Use Types Packs/Day Years [...] CDT Office Visit [facility] - POWER PLANT TECHNICIAN [address] [facility] [address] [place] [address] Sabra Rocha MD [address] [facility] [address] [place] [address] 08/09/2024 3:00 PM CDT Office Visit [facility] - GI [address] [place] [address] [phone] Chayo Tyson PA-C [address] [facility] DEPT OF INTER[place] [phone] 10/30/2024 11:30 AM CDT Office Visit [facility] - GI [address] [place] [phone] Juan Landry MD [address] [facility] [address] [place] [address] documented as of this encounter Visit Diagnoses Not on filedocumented in this encounter Additional Health Concerns Infection Onset Date Last Indicated Resolved Time COVID-19 Under Investigation 02/16/2020 02/16/2020 02/16/2020 3:58 AM CDT COVID-19 Confirmed 02/16/2020 02/16/2020 0 4:33 AM ELECTRONIC FIELD SERVICE ENGINEER documented as of this encounter Care Teams Engineering Technical Specialist Relationship Specialty Start Date End Date Josiah Palacios MD PCP - General Family Medicine 12/30/11 12/06/21 Tesfaye Baca MD [address] [place] [address] PCP - General 12/07/21 01/18/23 Frida De Los Santos MD [address] [facility] [address] [place] [address] PCP - Attributed-[employer] 07/18/22 3 Josiah Palacios MD [address] [facility] [place] [place] [address] PCP - General Family Medicine 01/19/23 Marcel Ram MD [address] [facility] [address] [place] [address] PCP - Attributed-[employer] 01/17/23 4 Mariama Rossi, ETCHER PHOTOENGRAVING-HOME HEALTH SCHEDULER [address] [place] [address] Nurse Practitioner Nurse Practitioner 09/30/16 12/15/16 Ave Cooley RN Registered Nurse 09/30/16 12/15/16 Stephanie Lozano, RN Registered Nurse 12/16/16 Rei Ann, PharmD Pharmacist 01/12/17 Mariama Rudd, YANG Outpatient First Sampler Care Management 12/08/22 12/10/22 documented as of this encounter
--- OUTSIDE RECORDS SUMMARY | 2024-05-19 10:30 | XMS_ITS | Patient Health Summary ---
Author Organization [facility] Address [address] [place] [address] Care Team Providers Care Clam Bed Worker Name Role Phone Stephanie Lozano RN Unavailable Unaadi ailRei Richard PharmD Unavailable Unavai Josiah Russell MD Primary Care Provider [phone] Note from [facility],non-owned Affiliates and Associated Physician Practices is amultiple site organization consisting of ambulatory clinics and hospital sitesin [place], [place], [place] and [place]. This disclosure is being madepursuant to the Care Everywhere program and may not contain all information available regarding this patient. Last updated 18.[facility] Allergies * Hydromorphone(Psychiatric) -Medium Criticality * Morphine(Itching) -Medium Criticality Medications * Be aware that medications may not be up to date on this document. Alwaysverify current medications with the patient. * Calcium Carb-Cholecalciferol (CALCIUM 1000 + D PO) Take by mouth once daily * Ferrous Sulfate Dried (High Potency Iron) 65 MG TABS Take 65 mg by mouth once daily * ursodiol (Jv Forte) 500 MG tablet(Started 11/26/2022) Take 1 (one) tablet by mouth 3 times daily with meals Reasons: Cholestatic Pruritus 1 refill by 11/26/2023 * ibuprofen (Motrin) 600 MG tablet(Started 12/07/2022) Take 1 (one) tablet by mouth every 6 hours as needed for Pain 1 refill by 12/07/2023 * plus iron (Natatab) 29-1 MG tablet(Started 12/07/2022) Take 1 (one) tablet by mouth once daily 1 refill by 12/07/2023 * magnesium oxide (Mag-Ox) 400 MG tablet Take 1 (one) tablet by mouth once daily * thiamine (Vitamin B-1) 100 MG tablet Take 1 (one) tablet by mouth once daily * Wegovy 1.7 MG/0.75ML pen(Started 04/20/2024) INJECT 1.7MG SUBCUTANEOUSLY ONCE WEEKLY * tacrolimus (Prograf) 1 MG capsule(Started 05/02/2024) 4 (four) capsules every morning AND 3 (three) capsules every evening. Ended Medications* tacrolimus (Prograf) 1 MG capsule(Started 09/09/2023) (Discontinued) TAKE 3 CAPSULES TWO TIMES DAILY FOR LIVER TRANSPLANT 3 refills by 09/08/2024 * Wegovy 1.7 MG/0.75ML pen(Started 02/17/2024)(Discontinued) INJECT 1 SYRINGE SUBCUTANEOUSLY ONCE A WEEK * tacrolimus (Prograf) 1 MG capsule(Started 05/02/2024)(Discontinued) 4 (four) capsules every morning AND 3 (three) capsules every evening. TAKE 3 CAPSULES TWO TIMES DAILY FOR LIVER TRANSPLANT. Active Problems Problem Noted Date Diagnosed Date Routine follow-up 01/19/2023 History of gestational hypertension 01/18/2023 Family history of VSD (ventr icular septal defect): G2 (spontaneous resolution) 11/03/2022 Thrombocytopenic disorder 09/24/2022 History of anemia 09/24/2022 History of hepatocellular carcinoma 11/29/2017 History of liver transplant 08/26/2012 Resolved Problems Problem Noted Date Diagnosed Date Resolved Date Decreased movement 11/11/202212/2022 Decreased movement dur ing , antepartum, single or unspecified fetus 11/11/2022 11/25/2022 Threatened premature labor in third trimester 11/01/1911/03/2022 Maternal iron deficiency ane odilon complicating in third trimester 10/19/2022 01/18/2023 Abnormal ultrasound 09/24/2022 Fatigue during in third trimester 09/24/2022 11/03/2022 High-risk in third trimester 09/24/2022 01/18/2023 Abdominal pain, unspecified abdominal location 09/19/2022 09/24/2022 Influenza 01/26/2022 09/24/2022 Threatened labor 03/03/2020 03/03/2020 Threatened premature labor in third trimester 02/20/20 20 03/19/2020 Shortness of breath 02/16/2020 03/19/20 Abdominal pain affecting 02/16/2020 03/19/2020 Non-intractable vomiting with nausea 12/13/2019 03/19/2020 Abdominal pain 11/17/2019 01/18/2020 Depression 11/29/2017 09/17/2019 Heartburn 11/29/2017 08/28/2019 Syncope 07/27/2017 09/17/2019 Liver transplant rejection 07/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 0 08/28/2019 Liver transplant rejection 07/16/2017 1 Abdominal pain, right upper quadrant 03/21/2017 07/16/2017 Total bilirubin, elevated 03/21/2017 Elevated liver enzymes and D irect Hyperbilirubinemia 03/15/2017 09/17/2019 Chronic daily headache 03/08/201701/17 Elevated transaminase level 03/07/2017 01/18/2020 Primary snoring 06/09/2015 01/18/2020 Liver transplant complication 10/31/2013 01/18/2020 Abdominal pain, generalized 08/15/2013 08/28/2019 Menstrual cramps 08/15/2013 08/28/2019 Myofascial pain 08/15/2013 09/17/2019 Transplant rejection 03/15/2013 020 Hepatocellular carcinoma, fibrolamellar 03/23/2012 07/16/2017 Footprints Patient 02/11/2012 0 HCC (hepatocellular carcinoma) 01/29/2012 07/16/2017 Pain, Anxiety, Sedation 01/29/201208/19 Respiratory distress 01/29/2012 018 Feeding problem 01/29/2012 07/16/2017 Migraine 03/10/2006 01/18/2020 Foot laceration 07/16/2017 Encounter for ultrasound to assess growth 01/31/2020 28 weeks gestation of 01/31/2020 Immunizations * INFLUENZA VACCINE, TRIV. (AFLURIA, FLUZONE TRIVALENT; 6MO+) (IIV3)(Given 02/09/2007) * Covid Pfizer primary monovalent 12+ yr 0.3mL Purple cap(Given 06/20/2020, 05/31/2020) * DTaP VACCINE IM (6wk-6yrs)(Given 11/01/2003, 08/25/2000, 1999, 1999, 1999) * HEP A PEDS 2 DOSE(Given 07/19/2006, 04/29/2002) * HEP B VACCINE, PED/ADOL(Given 03/01/2001, 1999, 1999) * HIB-PRP-T 4 DOSE(Given 08/25/2000, 1999, 1999, 1999) * Human Papilloma Virus Vaccine(Given 09/24/2010, 05/15/2010, 03/05/2010) * INFLUENZA VACCINE(Given 02/17/2018, 02/15/2017, 01/21/2016, 01/23/2014, 01/21/2012) * INFLUENZA VACCINE, QUADR. (FLUZONE; FLULAVAL; FLUARIX; AFLURIA QUADRIVALENT; 6MO+), 0.5 ML (IIV4)(Given 01/31/2020) * MENINGOCOCAL MENINGITIS(Given 01/13/2017) * MMR(Given 11/01/2003, 03/19/2000) * PNEUMOCOCCAL PCV7 CONJ, PEDS(Given 03/19/2000, 1999) * POLIO IPV(Given 11/01/2003, 1999, 1999, 1999) * TDAP (7yrs+)(Given 10/13/2022, 01/31/2020, 03/07/2011) * VARICELLA(Given 08/03/2007, 03/19/2000) Social History Tobacco Use Types Packs/Day Years Used Date Smoking Tobacco: Never Smokeless Tobacco: Never Tobacco Cessation:Counseling Given: Not Answered Alcohol Use Standard Drinks/Week Comments No 0 (1 standard drink = 0.6 oz pur e alcohol) AUDIT-C Answer Date Recorded Q1: How often do you have a drink containing alcohol? Never 03/12/2023 Q2: How many drinks containi ng alcohol do you have on a typical day when you are drinking? Patient does not drink 3 Q3: How often do you have si x or more drinks on one occasion? Never 03/12/2023 Overall Financial Resource Strain (CARDIA) Answe r Date Recorded How hard is it for you to pa y for the very basics like food, housing, medical care, and heating? Not hard at all 12/05/2022 PHQ-2 Answer Date Recorded Patient Health Questionnaire-2 Score 0 12/15/2023 [facility] - Occupational Stress Questionnaire Answer Date Recorded Do you feel stress - tense, restless, nervous, or anxious, or unable to sleep at night because your mind is troubled all the time - these days? Not at all 12/05/2022 Hunger Vital Sign Answer Date Recorded Within the past 12 months, y ou worried that your food would run out before you got the money to buy more. Never true 12/06/19 23 Within the past 12 months, t he food you bought just didn't last and you didn't have money to get more. Never true 12/05/2022 PRAPARE - Transportation Answer Date Re corded In the past 12 months, has l ack of transportation kept you from medical appointments or from getting medications? No 11/17 In the past 12 months, has l ack of transportation kept you from meetings, work, or from getting things needed for daily living? No 12/05/2022 Housing Stability Vital Sign Answer Paulino e Recorded In the last 12 months, was t here a time when you were not able to pay the mortgage or rent on time? No 12/05/2022 In the last 12 months, how many places have you lived? 2 12/05/2022 In the last 12 months, was t here a time when you did not have a steady place to sleep or slept in a halfway (including now)? No 12/05/2022 [place] Depression Scale Answer Date Recorded [place] Depression Scale Total 6 01/19/2023 The thought of harming myself has occurred to me . Never 01/19/2023 Education Answer Date Recorded What is the highest level of school you have completed or the highest degree you have received? Associate degree: occupational, technical, or vocational program 07/01/2022 Sex and Gender Information Value Date Recorded Sex Assigned at Not on file Gender Identity Not on file Sexual Orientation Not on file Last Filed Vital Signs Vital Sign Reading Time Taken Comments Blood Pressure 121/75 05/02/2024 11:44 AM SOLVENT PROCESS EXTRACTOR OPERATOR Pulse 88 05/02/2024 11:44 AM SOLVENT PROCESS EXTRACTOR OPERATOR Temperature 36.5 ??C (97.7 ??F) 05/02/2024 11:[address] Respiratory Rate 18 11/08/2023 8:52 AM CDT Oxygen Saturation 99% 05/02/2024 11:44 AM SOLVENT PROCESS EXTRACTOR OPERATOR Inhaled Oxygen Concentration 100% 07/14/2017 1 2:45 PM CDT Weight 71.9 kg (158 lb 9.6 oz) 05/02/2024 11:44 AM SOLVENT PROCESS EXTRACTOR OPERATOR Height 167.6 cm (5' 6 ) 05/02/2024 11:44 AM SOLVENT PROCESS EXTRACTOR OPERATOR Body Mass Index 25.6 05/02/2024 11:44 AM SOLVENT PROCESS EXTRACTOR OPERATOR Procedures * TACROLIMUS LEVEL(Performed 04/21/2024) * HEMOGLOBIN A1C(Performed 04/21/2024) * CBC W/O DIFFERENTIAL(Performed 04/21/2024) * HEPATIC FUNCTION PANEL(Performed 04/21/2024) * BASIC METABOLIC PANEL (CALCIUM TOTAL)(Performed 04/21/2024) * LIPID PROFILE(Performed 04/21/2024) * PAP IMAGE-GUIDED W HPV(Performed 06/23/2023) Performed for Encounter for gynecological examination without abnormal finding * HPV DETECTION HIGH RISK HU(Performed 06/23/2023) Performed for Encounter for gynecological examination without abnormal finding * TACROLIMUS LEVEL(Performed 06/23/2023) * HEPATIC FUNCTION PANEL(Performed 06/23/2023) * BASIC METABOLIC PANEL (CALCIUM TOTAL)(Performed 06/23/2023) * CT US GUIDED NEEDLE PLACEMENT(Performed 03/12/2023) Performed for History of liver transplant (HCC) * PATHOLOGY TISSUE(Performed 03/12/2023) Performed for History of liver transplant (HCC) * PT-INR [facility](Performed 03/12/2023) Performed for History of liver transplant (HCC) * HCG URINE QUALITATIVE - POCT (IP) INTERFACED(Performed 03/12/2023) * HCG URINE QUAL POCT NOTIFICATION(Performed 03/12/2023) Performed for Preop examination * US LIVER TRANSPLANT(Performed 03/09/2023) Performed for History of liver transplant (HCC), Elevated liver enzymes * TACROLIMUS LEVEL(Performed 03/08/2023) * CBC W/O DIFFERENTIAL(Performed 03/08/2023) Performed for History of liver transplant (HCC) * BASIC METABOLIC PANEL (CALCIUM TOTAL)(Performed 03/08/2023) Performed for History of liver transplant (HCC) * HEPATIC FUNCTION PANEL(Performed 03/08/2023) Performed for History of liver transplant (HCC) * TACROLIMUS LEVEL(Performed 02/23/2023) Performed for History of liver transplant (HCC) * TACROLIMUS LEVEL(Performed 02/23/2023) * COMPREHENSIVE METABOLIC PANEL(Performed 02/23/2023) * FL INSERT INTRAUTERINE DEVICE(Performed 02/15/2023) Performed for Encounter for IUD insertion * HCG URINE QUALITATIVE - POCT (IP) [facility](Performed 02/15/2023) Performed for Encounter for IUD insertion * CBC W/O DIFFERENTIAL(Performed 01/19/2023) Performed for History of anemia * CBC W AUTO DIFFERENTIAL(Performed 12/06/2022) * BLOOD GASES CORD DANO (ISTAT)(Performed 12/05/2022) * BLOOD GASES CORD ART (ISTAT)(Performed 12/05/2022) * NEURAXIAL BLOCK(Performed 12/05/2022) * TYPE + SCREEN PANEL(Performed 12/05/2022) Performed for High-risk in third trimester (FORMERLY [facility]) * RPR W REFLEX TO TITER (MONITOR)(Performed 12/05/2022) Performed for High-risk in third trimester ([facility]) * COMPREHENSIVE METABOLIC PANEL(Performed 12/05/2022) Performed for High-risk in third trimester ([facility]) * SYPHILIS ANTIBODY CASCADING REFLEX(Performed 12/05/2022) Performed for High-risk in third trimester ([facility]) * CBC W AUTO DIFFERENTIAL(Performed 12/05/2022) Performed for High-risk in third trimester ([facility]) * URINE MICROSCOPIC ONLY REFLEX TO CULTURE(Performed 12/05/2022) Performed for High-risk in third trimester ([facility]) * URINALYSIS REFLEX MICROSCOPIC REFLEX CULTURE(Performed 12/05/2022) Performed for High-risk in third trimester ([facility]) * RUPTURE OF MEMBRANES EVAL(Performed 12/05/2022) Performed for High-risk in third trimester (HCC) * NONSTRESS TEST(Performed 12/04/2022) * BIOPHYSICAL PROFILE W NST(Performed 12/02/2022) Performed for History of liver transplant (HCC) * FL OB US, LIMITED, FETUS(S)(Performed 12/02/2022) Performed for History of liver transplant (HCC) * FL BIOPHYSICAL PROFILE(Performed 12/02/2022) Performed for History of liver transplant (HCC) * IMAGING/RADIOLOGY/XRAY RESULTS ORDER(Performed 12/02/2022) * URINALYSIS - POINT OF CARE (AMB) [facility](Performed 12/02/2022) Performed for Thrombocytopenia affecting (HCC), High-risk in third trimester (HCC), Anemia affecting in third trimester (HCC) * CBC W/O DIFFERENTIAL(Performed 12/01/2022) Performed for Thrombocytopenia affecting (HCC), High-risk in third trimester (HCC), Anemia affecting in third trimester (HCC) * NONSTRESS TEST(Performed 11/30/2022) * CULTURE STREP B(Performed 11/25/2022) Performed for Thrombocytopenia affecting (HCC), High-risk in third trimester (HCC), Anemia affecting in third trimester (HCC) * FL BIOPHYSICAL PROFILE(Performed 11/25/2022) Performed for High-risk in third trimester (HCC), Anemia affecting in third trimester (HCC), complicated by congenital heart disease, single or unspecified fetus (HCC), Current maternal condition affecting (HCC), Liver disorder during in thirdtrimester (HCC), History of liver transplant (HCC), History of hepatocellular carcinoma * FL OB US, LIMITED, FETUS(S)(Performed 11/25/2022) Performed for High-risk in third trimester (HCC), Anemia affecting in third trimester (HCC), complicated by congenital heart disease, single or unspecified fetus (HCC), Current maternal condition affecting (HCC), Liver disorder during in thirdtrimester (HCC), History of liver transplant (HCC), History of hepatocellular carcinoma * IMAGING/RADIOLOGY/XRAY RESULTS ORDER(Performed 11/25/2022) Performed for Thrombocytopenia affecting (HCC), High-risk in third trimester (HCC), Anemia affecting in third trimester (HCC) * URINALYSIS - POINT OF CARE (AMB) [facility](Performed 11/25/2022) Performed for Thrombocytopenia affecting (HCC), High-risk in third trimester (HCC), Anemia affecting in third trimester (HCC) * BILE ACIDS FRACT+TOTAL,(Performed 11/20/2022) Performed for High-risk in third trimester (HCC) * COMPREHENSIVE METABOLIC PANEL(Performed 11/20/2022) Performed for High-risk in third trimester (HCC) * CBC W AUTO DIFFERENTIAL(Performed 11/20/2022) Performed for High-risk in third trimester (HCC) * FL SONO FU OR REPEAT(Performed 11/16/2022) Performed for History of liver transplant (HCC), History of hepatocellular carcinoma, Abnormal ultrasound, High-risk in third trimester (HCC), Thrombocytopenia affecting (HCC), Anemia affecting in third trimester (HCC), Maternal iron deficiency anemia complicating in third trimester (HCC), complicated by congenital heart disease, single or unspecified fetus (HCC), Encounter for ultrasound to check growth (HCC) * FL BIOPHYSICAL PROFILE(Performed 11/16/2022) Performed for History of liver transplant (HCC), History of hepatocellular carcinoma, Abnormal ultrasound, High-risk in third trimester (HCC), Thrombocytopenia affecting (HCC), Anemia affecting in third trimester (HCC), Maternal iron deficiency anemia complicating in third trimester (HCC), complicated by congenital heart disease, single or unspecified fetus (HCC), Encounter for ultrasound to check growth (HCC) * FL DOPPLER VELOCIMETRY ; UMBILICAL ARTERY(Performed 11/16/2022) Performed for History of liver transplant (HCC), History of hepatocellular carcinoma, Abnormal ultrasound, High-risk in third trimester (HCC), Thrombocytopenia affecting (HCC), Anemia affecting in third trimester (HCC), Maternal iron deficiency anemia complicating in third trimester (HCC), complicated by congenital heart disease, single or unspecified fetus (HCC), Encounter for ultrasound to check growth (HCC) * IMAGING/RADIOLOGY/XRAY RESULTS ORDER(Performed 11/16/2022) * URINALYSIS - POINT OF CARE (AMB) [facility](Performed 11/16/2022) Performed for High-risk in second trimester (HCC) * IMAGING/RADIOLOGY/XRAY RESULTS ORDER(Performed 11/12/2022) * NONSTRESS TEST(Performed 11/11/2022) * FL BIOPHYSICAL PROFILE(Performed 11/10/2022) Performed for History of liver transplant (HCC), History of hepatocellular carcinoma, Abnormal ultrasound, High-risk in third trimester (HCC), Thrombocytopenia affecting (HCC), Anemia affecting in third trimester (HCC), Maternal iron deficiency anemia complicating in third trimester (HCC), complicated by congenital heart disease, single or unspecified fetus (HCC), Maternal obesity, antepartum, third trimester (HCC), Encounter for ultrasound (HCC) * FL OB US, LIMITED, FETUS(S)(Performed 11/10/2022) Performed for History of liver transplant (HCC), History of hepatocellular carcinoma, Abnormal ultrasound, High-risk in third trimester (HCC), Thrombocytopenia affecting (HCC), Anemia affecting in third trimester (HCC), Maternal iron deficiency anemia complicating in third trimester (HCC), complicated by congenital heart disease, single or unspecified fetus (HCC), Maternal obesity, antepartum, third trimester (HCC), Encounter for ultrasound (HCC) * IMAGING/RADIOLOGY/XRAY RESULTS ORDER(Performed 11/10/2022) Performed for High-risk in third trimester (HCC) * URINALYSIS - POINT OF CARE (AMB) [facility](Performed 11/10/2022) Performed for High-risk in second trimester (HCC) * TACROLIMUS LEVEL(Performed 11/07/2022) * CBC W/O DIFFERENTIAL(Performed 11/07/2022) * BILE ACIDS FRACT+TOTAL LC-MS/MS(Performed 11/07/2022) * HEPATIC FUNCTION PANEL(Performed 11/07/2022) * BASIC METABOLIC PANEL (CALCIUM TOTAL)(Performed 11/07/2022) * GGT(Performed 11/07/2022) * FL BIOPHYSICAL PROFILE(Performed 11/03/2022) Performed for High-risk in second trimester (HCC), History of liver transplant (HCC), Thrombocytopenia affecting (HCC), History of hepatocellular carcinoma * FL OB US, LIMITED, FETUS(S)(Performed 11/03/2022) Performed for High-risk in second trimester (HCC), History of liver transplant (HCC), Thrombocytopenia affecting (HCC), History of hepatocellular carcinoma * IMAGING/RADIOLOGY/XRAY RESULTS ORDER(Performed 11/03/2022) * URINALYSIS - POINT OF CARE (AMB) [facility](Performed 11/03/2022) Performed for High-risk in second trimester (HCC) * NONSTRESS TEST(Performed 10/31/2022) * URINALYSIS REFLEX MICROSCOPIC REFLEX CULTURE(Performed 10/31/2022) Performed for Threatened premature labor in third trimester (HCC) * TRICHOMONAS RAPID TEST(Performed 10/31/2022) Performed for Threatened premature labor in third trimester (HCC) * CHLAMYDIA + GC AMPLIFIED PROBE(Performed 10/31/2022) Performed for Threatened premature labor in third trimester (HCC) * TACROLIMUS LEVEL(Performed 10/29/2022) Performed for Liver transplant status (HCC) * BASIC METABOLIC PANEL (CALCIUM TOTAL)(Performed 10/29/2022) Performed for Liver transplant status (HCC) * CBC W/O DIFFERENTIAL(Performed 10/29/2022) Performed for Liver transplant status (HCC) * HEPATIC FUNCTION PANEL(Performed 10/29/2022) Performed for Liver transplant status (HCC) * IMAGING/RADIOLOGY/XRAY RESULTS ORDER(Performed 10/22/2022) * ECHO COMPLETE(Performed 10/22/2022) Performed for Abnormal ultrasound * NONSTRESS TEST(Performed 10/22/2022) * FL SONO FU OR REPEAT(Performed 10/19/2022) Performed for High-risk in second trimester (HCC), History of liver transplant (HCC), Abnormal ultrasound, Encounter for ultrasound to assess growth (HCC) * IMAGING/RADIOLOGY/XRAY RESULTS ORDER(Performed 10/19/2022) * URINALYSIS - POINT OF CARE (AMB) [facility](Performed 10/19/2022) Performed for High-risk in second trimester (HCC) * IRON + TIBC + FERRITIN(Performed 10/16/2022) * COMPREHENSIVE METABOLIC PANEL(Performed 10/16/2022) Performed for High-risk in second trimester (HCC), History of hepatocellular carcinoma, History of liver transplant (HCC) * BILE ACIDS FRACT+TOTAL,(Performed 10/16/2022) Performed for High-risk in second trimester (HCC), History of hepatocellular carcinoma, History of liver transplant (HCC) * TSH+FREE T4 PANEL(Performed 10/16/2022) Performed for High-risk in second trimester (HCC), Fatigue during in second trimester (HCC) * URINALYSIS - POINT OF CARE (AMB) [facility](Performed 10/13/2022) Performed for High-risk in second trimester (HCC) * BILE ACIDS FRACT+TOTAL,(Performed 10/10/2022) * FL SONO FU OR REPEAT(Performed 09/24/2022) Performed for Encounter for follow-up ultrasound of anatomy (HCC), ventricular septal defect affecting antepartum care of mother, single or unspecified fetus (HCC), History of liver transplant (HCC), Current maternal condition affecting (HCC), Obesity affecting in second trimester (HCC), BMI 37.0-37.9, adult, High-risk in second trimester (HCC), Encounterfor ultrasound to assess interval growth of fetus (HCC) * FL DOPPLER COLOR FLOW VELOCITY MAP(Performed 09/24/2022) Performed for Encounter for follow-up ultrasound of anatomy (HCC), ventricular septal defect affecting antepartum care of mother, single or unspecified fetus (HCC), History of liver transplant (HCC), Current maternal condition affecting (HCC), Obesity affecting in second trimester (HCC), BMI 37.0-37.9, adult, High-risk in second trimester (HCC), Encounterfor ultrasound to assess interval growth of fetus (HCC) * IMAGING/RADIOLOGY/XRAY RESULTS ORDER(Performed 09/24/2022) * URINALYSIS - POINT OF CARE (AMB) [facility](Performed 09/24/2022) Performed for High-risk in second trimester (HCC) * IRON + TIBC + FERRITIN(Performed 09/24/2022) Performed for High-risk in second trimester (HCC), Fatigue during in second trimester (HCC), Anemia affecting in second trimester (HCC) * HEPATITIS C AB W/RFLX TO HCV RNA QN PCR(Performed 09/24/2022) Performed for High-risk in second trimester (HCC) * TREPONEMA PALLIDUM POS REFLX RPR(Performed 09/24/2022) Performed for High-risk in second trimester (HCC) * HIV-1 HIV-2 ANTIBODY + HIV P24 AG PANEL(Performed 09/24/2022) Performed for High-risk in second trimester (HCC) * GTT 1 HR (50G) GESTATIONAL SCREEN(Performed 09/24/2022) Performed for High-risk in second trimester (HCC) * CBC W AUTO DIFFERENTIAL(Performed 09/24/2022) Performed for High-risk in second trimester (HCC) * NONSTRESS TEST(Performed 09/19/2022) Performed for Abdominal pain, unspecified abdominal location * URINALYSIS REFLEX MICROSCOPIC REFLEX CULTURE(Performed 09/19/2022) Performed for Abdominal pain, unspecified abdominal location * CHLAMYDIA + GC AMPLIFIED PROBE(Performed 09/19/2022) Performed for Abdominal pain, unspecified abdominal location * TRICHOMONAS RAPID TEST(Performed 09/19/2022) Performed for Abdominal pain, unspecified abdominal location * CBC W AUTO DIFFERENTIAL(Performed 09/15/2022) * COMPREHENSIVE METABOLIC PANEL(Performed 09/15/2022) * BILE ACIDS FRACT+TOTAL,(Performed 09/15/2022) Performed for Liver transplant status (HCC), , unspecified gestational age (HCC) * TACROLIMUS LEVEL(Performed 09/15/2022) Performed for Liver transplant status (HCC), , unspecified gestational age (HCC) * HEPATIC FUNCTION PANEL(Performed 09/15/2022) Performed for Liver transplant status (HCC), , unspecified gestational age (HCC) * GGT(Performed 09/15/2022) Performed for Liver transplant status (HCC), , unspecified gestational age (HCC) * FL SONO FU OR REPEAT(Performed 08/25/2022) Performed for Encounter for follow-up ultrasound of anatomy (HCC), 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), History of liver transplant (HCC), Current maternal condition affecting (HCC) * FL ULTRASND,PREG UTER,TRANSVAGIN(Performed 08/25/2022) Performed for Encounter for follow-up ultrasound of anatomy (HCC), 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), History of liver transplant (HCC), Current maternal condition affecting (HCC) * IMAGING/RADIOLOGY/XRAY RESULTS ORDER(Performed 08/25/2022) * FL ULTRASND,PREG UTERUS,IMAGE DOC(Performed 07/28/2022) Performed for History of hepatocellular carcinoma, History of liver transplant (HCC), Encounter forantenatal screening for malformation (HCC), Encounter for screening for cervical length (HCC), 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), High-risk in second trimester (HCC) * FL ULTRASND,PREG UTER,TRANSVAGIN(Performed 07/28/2022) Performed for History of hepatocellular carcinoma, History of liver transplant (HCC), Encounter forantenatal screening for malformation (HCC), Encounter for screening for cervical length (HCC), 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), High-risk in second trimester (HCC) * IMAGING/RADIOLOGY/XRAY RESULTS ORDER(Performed 07/28/2022) * IRON + TIBC + FERRITIN(Performed 07/23/2022) * GTT 1 HR (50G) GESTATIONAL SCREEN(Performed 07/23/2022) Performed for Encounter for supervision of other normal in first trimester (HCC) * PROFILE I W/ HBSAG(Performed 07/23/2022) Performed for Encounter for supervision of other normal in first trimester (HCC) * CULTURE URINE(Performed 07/01/2022) Performed for Encounter for supervision of other normal in first trimester (HCC) * FL OB US, LIMITED, FETUS(S)(Performed 07/01/2022) Performed for with uncertain viability, single or unspecified fetus (HCC), History of liver transplant (HCC), History of hepatocellular carcinoma, Encounter for ultrasound to assess growth (HCC) * IMAGING/RADIOLOGY/XRAY RESULTS ORDER(Performed 07/01/2022) Performed for High-risk in second trimester (HCC) * URINALYSIS - POINT OF CARE (AMB) [facility](Performed 07/01/2022) Performed for Encounter for supervision of other normal in first trimester (HCC) * HEPATIC FUNCTION PANEL(Performed 06/30/2022) Performed for History of liver transplant (HCC), Elevated liver enzymes, Personal history of other complications of , childbirth and the puerperium, 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 * IGG BLOOD(Performed 06/30/2022) Performed for History of liver transplant (HCC), Elevated liver enzymes, Personal history of other complications of , childbirth and the puerperium, Other mcc (current) drug therapy * TACROLIMUS LEVEL(Performed 06/30/2022) Performed for History of liver transplant (HCC), Elevated liver enzymes, Personal history of other complications of , childbirth and the puerperium, Other mcc (current) drug therapy * BILE ACIDS FRACT+TOTAL,(Performed 06/30/2022) Performed for History of liver transplant (HCC), Elevated liver enzymes, Personal history of other complications of , childbirth and the puerperium, 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 * TACROLIMUS LEVEL(Performed 06/01/2022) * CBC W/O DIFFERENTIAL(Performed 06/01/2022) * BILE ACIDS FRACT+TOTAL,(Performed 06/01/2022) * HEPATIC FUNCTION PANEL(Performed 06/01/2022) * BASIC METABOLIC PANEL (CALCIUM TOTAL)(Performed 06/01/2022) * TACROLIMUS LEVEL(Performed 12/08/2021) * PT-INR(Performed 12/08/2021) * SLIDE SCAN HEMATOLOGY(Performed 12/08/2021) * CBC W AUTO DIFFERENTIAL(Performed 12/08/2021) * HEPATIC FUNCTION PANEL(Performed 12/08/2021) * BASIC METABOLIC PANEL (CALCIUM TOTAL)(Performed 12/08/2021) * GGT(Performed 12/08/2021) * HCG URINE QUALITATIVE - POINT OF CARE (AMB)(Performed 01/06/2021) Performed for IUD check up * URINALYSIS REFLEX MICROSCOPIC REFLEX CULTURE(Performed 10/13/2020) * CT ABDOMEN PELVIS W CONTRAST(Performed 10/13/2020) Performed for Lower abdominal pain * HCG BETA BLOOD QUANTITATIVE(Performed 10/13/2020) * BASIC METABOLIC PANEL (CALCIUM TOTAL)(Performed 10/13/2020) * CBC W AUTO DIFFERENTIAL(Performed 10/13/2020) * FL INSERT INTRAUTERINE DEVICE(Performed 10/07/2020) Performed for Encounter for IUD insertion * HCG URINE QUALITATIVE - POINT OF CARE (AMB)(Performed 10/07/2020) Performed for Encounter for IUD insertion * PAP IMAGE-GUIDED RFLX HPV+CT/NG(Performed 09/09/2020) Performed for Encounter for routine gynecological examination with Papanicolaou smear of cervix, Screen for STD (sexually transmitted disease) * C. TRACHOMATIS + N. GONORRHOEAE HU(Performed 09/09/2020) Performed for Encounter for routine gynecological examination with Papanicolaou smear of cervix, Screen for STD (sexually transmitted disease) * IMAGING/RADIOLOGY/XRAY RESULTS ORDER(Performed 05/06/2020) * COAGULATION PANEL W D-DIMER(Performed 04/23/2020) * CBC W/O DIFFERENTIAL(Performed 04/23/2020) * IMAGING/RADIOLOGY/XRAY RESULTS ORDER(Performed 04/04/2020) * CBC W AUTO DIFFERENTIAL(Performed 03/24/2020) * BLOOD GASES CORD DANO(Performed 03/23/2020) * BLOOD GASES CORD ARTERIAL(Performed 03/23/2020) * NEURAXIAL BLOCK(Performed 03/23/2020) * TYPE + SCREEN PANEL(Performed 03/22/2020) * RPR W REFLEX TO TITER (MONITOR)(Performed 03/22/2020) * GGT(Performed 03/22/2020) Performed for History of liver transplant (HCC) * BILE ACIDS(Performed 03/22/2020) Performed for History of liver transplant (HCC) * TACROLIMUS LEVEL(Performed 03/22/2020) Performed for History of liver transplant (HCC) * CBC W AUTO DIFFERENTIAL(Performed 03/22/2020) Performed for History of liver transplant (HCC) * COMPREHENSIVE METABOLIC PANEL(Performed 03/22/2020) Performed for History of liver transplant (HCC) * IMAGING/RADIOLOGY/XRAY RESULTS ORDER(Performed 03/18/2020) * FL SONO FU OR REPEAT(Performed 03/13/2020) Performed for Encounter for ultrasound to check growth (FORMERLY [facility]), History of liver transplant (HCC), Velamentous insertion of umbilical cord, antepartum (FORM[facility]LY [facility]) * CULTURE STREP B(Performed 03/13/2020) Performed for screening for streptococcus B (FORM[facility]LY [facility]) * IMAGING/RADIOLOGY/XRAY RESULTS ORDER(Performed 03/13/2020) * URINALYSIS - POINT OF CARE (AMB) [facility](Performed 03/13/2020) Performed for Supervision of high risk , antepartum (FORM[facility]LY [facility]) * IMAGING/RADIOLOGY/XRAY RESULTS ORDER(Performed 03/06/2020) * IMAGING/RADIOLOGY/XRAY RESULTS ORDER(Performed 02/23/2020) * NONSTRESS TEST(Performed 02/20/2020) * URINALYSIS REFLEX MICROSCOPIC REFLEX CULTURE(Performed 02/20/2020) * CHLAMYDIA + GC AMPLIFIED PROBE(Performed 02/20/2020) Performed for Threatened premature labor in third trimester (FORM[facility]LY [facility]) * TRICHOMONAS RAPID TEST(Performed 02/20/2020) Performed for Threatened premature labor in third trimester ([facility]) * TACROLIMUS LEVEL(Performed 02/17/2020) * SARS-COV-2 (COVID-19) ANTIBODY IGG(Performed 02/16/2020) * D-DIMER(Performed 02/16/2020) * PROCALCITONIN LEVEL(Performed 02/16/2020) * C-REACTIVE PROTEIN(Performed 02/16/2020) * LDH BLOOD(Performed 02/16/2020) * FERRITIN(Performed 02/16/2020) * HIV-1 HIV-2 ANTIBODY + HIV P24 AG PANEL(Performed 02/16/2020) * SYPHILIS ANTIBODY CASCADING REFLEX(Performed 02/16/2020) * TYPE + SCREEN PANEL(Performed 02/16/2020) * TACROLIMUS LEVEL(Performed 02/16/2020) Performed for S/P liver transplant, biliary anastomosis without stent or T-tube (HCC) * XR CHEST 1VW PORTABLE(Performed 02/16/2020) Performed for Shortness of breath, Abdominal pain affecting (HCC), S/P liver transplant, biliary anastomosis without stent or T-tube (HCC) * SARS-COV-2 (COVID-19) RAPID(Performed 02/16/2020) Performed for Shortness of breath * BLOOD TYPE VERIFICATION(Performed 02/16/2020) * URINALYSIS REFLEX MICROSCOPIC REFLEX CULTURE(Performed 02/16/2020) Performed for Shortness of breath, Abdominal pain affecting (HCC), S/P liver transplant, biliary anastomosis without stent or T-tube (HCC) * PHOSPHORUS BLOOD(Performed 02/16/2020) Performed for Shortness of breath, Abdominal pain affecting (HCC), S/P liver transplant, biliary anastomosis without stent or T-tube (HCC) * MAGNESIUM BLOOD(Performed 02/16/2020) Performed for Shortness of breath, Abdominal pain affecting (HCC), S/P liver transplant, biliary anastomosis without stent or T-tube (HCC) * COMPREHENSIVE METABOLIC PANEL(Performed 02/16/2020) Performed for Shortness of breath, Abdominal pain affecting (HCC), S/P liver transplant, biliary anastomosis without stent or T-tube (HCC) * CBC W AUTO DIFFERENTIAL(Performed 02/16/2020) Performed for Shortness of breath, Abdominal pain affecting (HCC), S/P liver transplant, biliary anastomosis without stent or T-tube (HCC) * INFLUENZA A+B ANTIGEN RAPID(Performed 02/16/2020) Performed for Shortness of breath * TRICHOMONAS RAPID TEST(Performed 02/16/2020) Performed for Shortness of breath, Abdominal pain affecting (HCC), S/P liver transplant, biliary anastomosis without stent or T-tube (HCC) * CHLAMYDIA + GC AMPLIFIED PROBE(Performed 02/16/2020) Performed for Shortness of breath, Abdominal pain affecting (HCC), S/P liver transplant, biliary anastomosis without stent or T-tube (HCC) * IMAGING/RADIOLOGY/XRAY RESULTS ORDER(Performed 02/13/2020) * FL SONO FU OR REPEAT(Performed 02/12/2020) Performed for Velamentous insertion of umbilical cord in third trimester (HCC), Supervision of highrisk , antepartum (HCC), Medication exposure during first trimester of (HCC), S/P liver transplant, biliary anastomosis without stent or T-tube (HCC), Obesity affecting in third trimester (HCC) * IMAGING/RADIOLOGY/XRAY RESULTS ORDER(Performed 01/19/2020) * FIBRINOGEN ACTIVITY(Performed 01/18/2020) * PT PTT PANEL(Performed 01/18/2020) Performed for , unspecified gestational age (HCC) * BILE ACIDS(Performed 01/18/2020) Performed for Itching * FL SONO FU OR REPEAT(Performed 01/18/2020) Performed for Supervision of high risk , antepartum (HCC), Velamentous insertion of umbilical cord in third trimester (HCC), Current maternal condition affecting (HCC), S/P liver transplant, biliary anastomosis without stent or T-tube (HCC), Personal history of malignant neoplasmof liver, Teratogen exposure in , antepartum (HCC), Obesity affecting in third tr imester (HCC), Encounter for ultrasound to assess growth (HCC) * IMAGING/RADIOLOGY/XRAY RESULTS ORDER(Performed 01/18/2020) * URINALYSIS - POINT OF CARE (AMB) [facility](Performed 01/18/2020) Performed for , unspecified gestational age (HCC) * FERRITIN(Performed 01/15/2020) * IRON + TIBC PANEL(Performed 01/15/2020) * CBC W/O DIFFERENTIAL(Performed 01/15/2020) * GLUCOSE CHALLENGE(Performed 01/15/2020) Performed for Supervision of high risk , antepartum (HCC) * TACROLIMUS LEVEL(Performed 01/15/2020) Performed for Liver replaced by transplant (HCC) * COMPREHENSIVE METABOLIC PANEL(Performed 01/15/2020) Performed for Liver replaced by transplant (HCC) * URINALYSIS REFLEX MICROSCOPIC REFLEX CULTURE(Performed 12/13/2019) Performed for Nausea and vomiting, intractability of vomiting not specified, unspecified vomiting type * COMPREHENSIVE METABOLIC PANEL(Performed 12/13/2019) Performed for Nausea and vomiting, intractability of vomiting not specified, unspecified vomiting type * CBC W/O DIFFERENTIAL(Performed 12/13/2019) Performed for Nausea and vomiting, intractability of vomiting not specified, unspecified vomiting type * GLUCOSE - POINT OF CARE(Performed 12/12/2019) * TACROLIMUS LEVEL(Performed 11/29/2019) Performed for Other chest pain * TROPONIN I(Performed 11/29/2019) Performed for Other chest pain * PHOSPHORUS BLOOD(Performed 11/29/2019) Performed for Other chest pain * MAGNESIUM BLOOD(Performed 11/29/2019) Performed for Other chest pain * COMPREHENSIVE METABOLIC PANEL(Performed 11/29/2019) Performed for Other chest pain * CBC W AUTO DIFFERENTIAL(Performed 11/29/2019) Performed for S/P liver transplant, biliary anastomosis without stent or T-tube (HCC) * BASIC METABOLIC PANEL (CALCIUM TOTAL)(Performed 11/29/2019) Performed for S/P liver transplant, biliary anastomosis without stent or T-tube (HCC) * EKG 12-LEAD(Performed 11/29/2019) Performed for Other chest pain * GLUCOSE - POINT OF CARE(Performed 11/29/2019) * IMAGING/RADIOLOGY/XRAY RESULTS ORDER(Performed 11/24/2019) * FL ULTRASND,PREG UTERUS,IMAGE DOC(Performed 11/23/2019) Performed for S/P liver transplant, biliary anastomosis without stent or T-tube (HCC), Current maternal condition affecting (HCC), Teratogen exposure in , antepartum (HCC), Encounter for routine screening for malformation using ultrasound, Encounter for screening for risk of pre-term labor (HCC), Obesity affecting in second trimester (HCC) * FL ULTRASND,PREG UTER,TRANSVAGIN(Performed 11/23/2019) Performed for S/P liver transplant, biliary anastomosis without stent or T-tube (HCC), Current maternal condition affecting (HCC), Teratogen exposure in , antepartum (HCC), Encounter for routine screening for malformation using ultrasound, Encounter for screening for risk of pre-term labor (HCC), Obesity affecting in second trimester (HCC) * URINALYSIS - POINT OF CARE (AMB) [facility](Performed 11/23/2019) Performed for , unspecified gestational age (HCC) * IMAGING/RADIOLOGY/XRAY RESULTS ORDER(Performed 11/22/2019) * URINALYSIS REFLEX MICROSCOPIC REFLEX CULTURE(Performed 11/17/2019) Performed for Abdominal pain, unspecified abdominal location * TRICHOMONAS RAPID TEST(Performed 11/17/2019) Performed for Abdominal pain, unspecified abdominal location * CHLAMYDIA + GC AMPLIFIED PROBE(Performed 11/17/2019) Performed for Abdominal pain, unspecified abdominal location * GLUCOSE PROTEIN KETONE URINE - POINT OF CAR(Performed 11/17/2019) * FL ULTRASOUND, UTERUS(Performed 10/17/2019) Performed for Encounter to determine viability of , single or unspecified fetus (HCC), Maternal obesity, antepartum, first trimester (HCC), Teratogen exposure in , antepartum (HCC) * IMAGING/RADIOLOGY/XRAY RESULTS ORDER(Performed 09/19/2019) Performed for Encounter to determine viability of , single or unspecified fetus (HCC) * URINALYSIS - POINT OF CARE (AMB) [facility](Performed 09/14/2019) Performed for , unspecified gestational age (HCC) * US OB TRANSVAGINAL(Performed 08/28/2019) Performed for Significant discrepancy between uterine size and clinical dates, antepartum, first trimester (HCC) * US OB TRANSVAGINAL(Performed 08/14/2019) Performed for with uncertain viability, single or unspecified fetus (HCC) * US LIVER TRANSPLANT(Performed 08/10/2019) Performed for Liver replaced by transplant (FORMERLY [facility]) * VEGA STAINING PATTERNS REFLEXED(Performed 08/10/2019) Performed for Liver replaced by transplant (HCC), Transplant rejection * BETTINA-MEDRANO VIRUS AB TO EARLY AG IGG(Performed 08/10/2019) Performed for Liver replaced by transplant (HCC), Transplant rejection * BETTINA-MEDRANO VIRUS ANTIBODY TO VCA IGM(Performed 08/10/2019) Performed for Liver replaced by transplant (HCC), Transplant rejection * GGT(Performed 08/10/2019) Performed for Liver replaced by transplant (HCC), Transplant rejection * TACROLIMUS LEVEL(Performed 08/10/2019) Performed for Liver replaced by transplant ([facility]), Transplant rejection * CYTOMEGALOVIRUS ANTIBODY IGG/IGM BLOOD(Performed 08/10/2019) Performed for Liver replaced by transplant ([facility]), Transplant rejection * PT-INR [facility](Performed 08/10/2019) Performed for Liver replaced by transplant (HCC), Transplant rejection * COMPREHENSIVE METABOLIC PANEL(Performed 08/10/2019) Performed for Liver replaced by transplant (HCC), Transplant rejection * CBC W/O DIFFERENTIAL(Performed 08/10/2019) Performed for Liver replaced by transplant (HCC), Transplant rejection * IGG BLOOD(Performed 08/10/2019) Performed for Liver replaced by transplant (HCC), Transplant rejection * NUBIA BLOOD SCREEN W/REFLEX TITER(Performed 08/10/2019) Performed for Liver replaced by transplant (HCC), Transplant rejection * CULTURE URINE(Performed 08/07/2019) Performed for , unspecified gestational age (HCC), Missed period * HCV COMMENT(Performed 08/07/2019) Performed for , unspecified gestational age (HCC), Missed period * HIV-1 HIV-2 ANTIBODY + HIV P24 AG PANEL(Performed 08/07/2019) Performed for , unspecified gestational age (HCC), Missed period * HEPATITIS B + C PANEL(Performed 08/07/2019) Performed for , unspecified gestational age (HCC), Missed period * PROFILE I W/ HBSAG(Performed 08/07/2019) Performed for , unspecified gestational age (HCC), Missed period * PROGESTERONE(Performed 08/07/2019) Performed for Amenorrhea * HCG BETA BLOOD QUANTITATIVE(Performed 08/07/2019) Performed for Amenorrhea * URINALYSIS - POINT OF CARE (AMB) [facility](Performed 08/07/2019) Performed for , unspecified gestational age (HCC) * HCG BETA BLOOD QUANTITATIVE(Performed 08/03/2019) Performed for Missed period * CHLAMYDIA + GC + TRICH DNA AMPL(Performed 08/03/2019) Performed for Screen for STD (sexually transmitted disease) * BILIRUBIN DIRECT(Performed 06/29/2019) Performed for Liver transplant rejection (HCC) * CBC W AUTO DIFFERENTIAL(Performed 06/29/2019) Performed for Liver transplant rejection (HCC) * PHOSPHORUS BLOOD(Performed 06/29/2019) Performed for Liver transplant rejection (HCC) * GGT(Performed 06/29/2019) Performed for Liver transplant rejection (HCC) * TACROLIMUS LEVEL(Performed 06/29/2019) Performed for Liver transplant rejection (HCC) * MAGNESIUM BLOOD(Performed 06/29/2019) Performed for Liver transplant rejection (HCC) * COMPREHENSIVE METABOLIC PANEL(Performed 06/29/2019) Performed for Liver transplant rejection (HCC) * BILIRUBIN DIRECT(Performed 05/12/2019) Performed for Liver transplant rejection (HCC) * CBC W AUTO DIFFERENTIAL(Performed 05/12/2019) Performed for Liver transplant rejection (HCC) * PHOSPHORUS BLOOD(Performed 05/12/2019) Performed for Liver transplant rejection (HCC) * GGT(Performed 05/12/2019) Performed for Liver transplant rejection (HCC) * TACROLIMUS LEVEL(Performed 05/12/2019) Performed for Liver transplant rejection (HCC) * MAGNESIUM BLOOD(Performed 05/12/2019) Performed for Liver transplant rejection (HCC) * COMPREHENSIVE METABOLIC PANEL(Performed 05/12/2019) Performed for Liver transplant rejection (HCC) * BILIRUBIN DIRECT(Performed 04/24/2019) Performed for Liver transplant rejection (HCC) * CBC W AUTO DIFFERENTIAL(Performed 04/24/2019) Performed for Liver transplant rejection (HCC) * PHOSPHORUS BLOOD(Performed 04/24/2019) Performed for Liver transplant rejection (HCC) * GGT(Performed 04/24/2019) Performed for Liver transplant rejection (HCC) * TACROLIMUS LEVEL(Performed 04/24/2019) Performed for Liver transplant rejection (HCC) * MAGNESIUM BLOOD(Performed 04/24/2019) Performed for Liver transplant rejection (HCC) * COMPREHENSIVE METABOLIC PANEL(Performed 04/24/2019) Performed for Liver transplant rejection (HCC) * BILIRUBIN DIRECT(Performed 03/20/2019) Performed for Liver transplant rejection (HCC) * CBC W AUTO DIFFERENTIAL(Performed 03/20/2019) Performed for Liver transplant rejection (HCC) * PHOSPHORUS BLOOD(Performed 03/20/2019) Performed for Liver transplant rejection (HCC) * GGT(Performed 03/20/2019) Performed for Liver transplant rejection (HCC) * TACROLIMUS LEVEL(Performed 03/20/2019) Performed for Liver transplant rejection (HCC) * MAGNESIUM BLOOD(Performed 03/20/2019) Performed for Liver transplant rejection (HCC) * COMPREHENSIVE METABOLIC PANEL(Performed 03/20/2019) Performed for Liver transplant rejection (HCC) * BILIRUBIN DIRECT(Performed 02/07/2019) Performed for Liver transplant rejection (HCC) * CBC W AUTO DIFFERENTIAL(Performed 02/07/2019) Performed for Liver transplant rejection (HCC) * PHOSPHORUS BLOOD(Performed 02/07/2019) Performed for Liver transplant rejection (HCC) * GGT(Performed 02/07/2019) Performed for Liver transplant rejection (HCC) * TACROLIMUS LEVEL(Performed 02/07/2019) Performed for Liver transplant rejection (HCC) * MAGNESIUM BLOOD(Performed 02/07/2019) Performed for Liver transplant rejection (HCC) * COMPREHENSIVE METABOLIC PANEL(Performed 02/07/2019) Performed for Liver transplant rejection (HCC) * HCG BETA BLOOD QUANTITATIVE(Performed 01/13/2019) Performed for Amenorrhea, unspecified * BILIRUBIN DIRECT(Performed 01/13/2019) Performed for Liver transplant rejection (HCC) * CBC W AUTO DIFFERENTIAL(Performed 01/13/2019) Performed for Liver transplant rejection (HCC) * PHOSPHORUS BLOOD(Performed 01/13/2019) Performed for Liver transplant rejection (HCC) * GGT(Performed 01/13/2019) Performed for Liver transplant rejection (HCC) * TACROLIMUS LEVEL(Performed 01/13/2019) Performed for Liver transplant rejection (HCC) * MAGNESIUM BLOOD(Performed 01/13/2019) Performed for Liver transplant rejection (HCC) * COMPREHENSIVE METABOLIC PANEL(Performed 01/13/2019) Performed for Liver transplant rejection (HCC) * BILIRUBIN DIRECT(Performed 12/29/2018) Performed for Liver transplant rejection (HCC) * CBC W AUTO DIFFERENTIAL(Performed 12/29/2018) Performed for Liver transplant rejection (HCC) * PHOSPHORUS BLOOD(Performed 12/29/2018) Performed for Liver transplant rejection (HCC) * GGT(Performed 12/29/2018) Performed for Liver transplant rejection (HCC) * TACROLIMUS LEVEL(Performed 12/29/2018) Performed for Liver transplant rejection (HCC) * MAGNESIUM BLOOD(Performed 12/29/2018) Performed for Liver transplant rejection (HCC) * COMPREHENSIVE METABOLIC PANEL(Performed 12/29/2018) Performed for Liver transplant rejection (HCC) * COMPREHENSIVE METABOLIC PANEL(Performed 12/01/2018) Performed for Liver transplant rejection (HCC) * MAGNESIUM BLOOD(Performed 12/01/2018) Performed for Liver transplant rejection (HCC) * TACROLIMUS LEVEL(Performed 12/01/2018) Performed for Liver transplant rejection (HCC) * GGT(Performed 12/01/2018) Performed for Liver transplant rejection (HCC) * PHOSPHORUS BLOOD(Performed 12/01/2018) Performed for Liver transplant rejection (HCC) * CBC W AUTO DIFFERENTIAL(Performed 12/01/2018) Performed for Liver transplant rejection (HCC) * BILIRUBIN DIRECT(Performed 12/01/2018) Performed for Liver transplant rejection (HCC) * PHOSPHORUS BLOOD(Performed 10/19/2018) Performed for S/P liver transplant, biliary anastomosis without stent or T-tube (HCC) * BILIRUBIN DIRECT(Performed 10/19/2018) Performed for S/P liver transplant, biliary anastomosis without stent or T-tube (HCC) * CBC W AUTO DIFFERENTIAL(Performed 10/19/2018) Performed for S/P liver transplant, biliary anastomosis without stent or T-tube (HCC) * GGT(Performed 10/19/2018) Performed for S/P liver transplant, biliary anastomosis without stent or T-tube (HCC) * TACROLIMUS LEVEL(Performed 10/19/2018) Performed for S/P liver transplant, biliary anastomosis without stent or T-tube (HCC) * MAGNESIUM BLOOD(Performed 10/19/2018) Performed for S/P liver transplant, biliary anastomosis without stent or T-tube (HCC) * COMPREHENSIVE METABOLIC PANEL(Performed 10/19/2018) Performed for S/P liver transplant, biliary anastomosis without stent or T-tube (HCC) * PHOSPHORUS BLOOD(Performed 09/26/2018) Performed for S/P liver transplant, biliary anastomosis without stent or T-tube (HCC) * BILIRUBIN DIRECT(Performed 09/26/2018) Performed for S/P liver transplant, biliary anastomosis without stent or T-tube (HCC) * CBC W AUTO DIFFERENTIAL(Performed 09/26/2018) Performed for S/P liver transplant, biliary anastomosis without stent or T-tube (HCC) * GGT(Performed 09/26/2018) Performed for S/P liver transplant, biliary anastomosis without stent or T-tube (HCC) * TACROLIMUS LEVEL(Performed 09/26/2018) Performed for S/P liver transplant, biliary anastomosis without stent or T-tube (HCC) * MAGNESIUM BLOOD(Performed 09/26/2018) Performed for S/P liver transplant, biliary anastomosis without stent or T-tube (HCC) * COMPREHENSIVE METABOLIC PANEL(Performed 09/26/2018) Performed for S/P liver transplant, biliary anastomosis without stent or T-tube (HCC) * PHOSPHORUS BLOOD(Performed 09/02/2018) Performed for S/P liver transplant, biliary anastomosis without stent or T-tube (HCC) * BILIRUBIN DIRECT(Performed 09/02/2018) Performed for S/P liver transplant, biliary anastomosis without stent or T-tube (HCC) * CBC W AUTO DIFFERENTIAL(Performed 09/02/2018) Performed for S/P liver transplant, biliary anastomosis without stent or T-tube (HCC) * GGT(Performed 09/02/2018) Performed for S/P liver transplant, biliary anastomosis without stent or T-tube (HCC) * TACROLIMUS LEVEL(Performed 09/02/2018) Performed for S/P liver transplant, biliary anastomosis without stent or T-tube (HCC) * MAGNESIUM BLOOD(Performed 09/02/2018) Performed for S/P liver transplant, biliary anastomosis without stent or T-tube (HCC) * COMPREHENSIVE METABOLIC PANEL(Performed 09/02/2018) Performed for S/P liver transplant, biliary anastomosis without stent or T-tube (HCC) * PHOSPHORUS BLOOD(Performed 08/12/2018) Performed for S/P liver transplant, biliary anastomosis without stent or T-tube (HCC) * BILIRUBIN DIRECT(Performed 08/12/2018) Performed for S/P liver transplant, biliary anastomosis without stent or T-tube (HCC) * CBC W AUTO DIFFERENTIAL(Performed 08/12/2018) Performed for S/P liver transplant, biliary anastomosis without stent or T-tube (HCC) * GGT(Performed 08/12/2018) Performed for S/P liver transplant, biliary anastomosis without stent or T-tube (HCC) * TACROLIMUS LEVEL(Performed 08/12/2018) Performed for S/P liver transplant, biliary anastomosis without stent or T-tube (HCC) * MAGNESIUM BLOOD(Performed 08/12/2018) Performed for S/P liver transplant, biliary anastomosis without stent or T-tube (HCC) * COMPREHENSIVE METABOLIC PANEL(Performed 08/12/2018) Performed for S/P liver transplant, biliary anastomosis without stent or T-tube (HCC) * HGB HCT PANEL(Performed 08/02/2018) Performed for Elevated transaminase level * NEEDLE BIOPSY, LIVER(Performed 08/02/2018) * US GUIDE NEEDLE PLACEMENT(Performed 08/02/2018) Performed for S/P liver transplant (HCC) * VIRAL CULTURE MISC(Performed 08/02/2018) Performed for S/P liver transplant, biliary anastomosis without stent or T-tube (HCC) * PATHOLOGY TISSUE EXAM (STL)(Performed 08/02/2018) Performed for Diagnosis unknown * BIOPSY LIVER (NEEDLE/PERCUTANEOUS)(Performed 08/02/2018) * PREPARE RBC LEUKOREDUCED UNIT(Performed 08/02/2018) * HCG URINE QUALITATIVE - POCT (IP) INTERFACED(Performed 08/02/2018) * TYPE + SCREEN PANEL(Performed 08/02/2018) Performed for S/P liver transplant, biliary anastomosis without stent or T-tube (HCC) * PT PTT PANEL(Performed 08/02/2018) Performed for S/P liver transplant, biliary anastomosis without stent or T-tube (HCC) * CBC W AUTO DIFFERENTIAL(Performed 08/02/2018) Performed for S/P liver transplant, biliary anastomosis without stent or T-tube (HCC) * PHOSPHORUS BLOOD(Performed 07/18/2018) Performed for S/P liver transplant, biliary anastomosis without stent or T-tube (HCC) * BILIRUBIN DIRECT(Performed 07/18/2018) Performed for S/P liver transplant, biliary anastomosis without stent or T-tube (HCC) * CBC W AUTO DIFFERENTIAL(Performed 07/18/2018) Performed for S/P liver transplant, biliary anastomosis without stent or T-tube (HCC) * GGT(Performed 07/18/2018) Performed for S/P liver transplant, biliary anastomosis without stent or T-tube (HCC) * TACROLIMUS LEVEL(Performed 07/18/2018) Performed for S/P liver transplant, biliary anastomosis without stent or T-tube (HCC) * MAGNESIUM BLOOD(Performed 07/18/2018) Performed for S/P liver transplant, biliary anastomosis without stent or T-tube (HCC) * COMPREHENSIVE METABOLIC PANEL(Performed 07/18/2018) Performed for S/P liver transplant, biliary anastomosis without stent or T-tube (HCC) * PHOSPHORUS BLOOD(Performed 06/24/2018) Performed for S/P liver transplant, biliary anastomosis without stent or T-tube (HCC) * BILIRUBIN DIRECT(Performed 06/24/2018) Performed for S/P liver transplant, biliary anastomosis without stent or T-tube (HCC) * CBC W AUTO DIFFERENTIAL(Performed 06/24/2018) Performed for S/P liver transplant, biliary anastomosis without stent or T-tube (HCC) * GGT(Performed 06/24/2018) Performed for S/P liver transplant, biliary anastomosis without stent or T-tube (HCC) * TACROLIMUS LEVEL(Performed 06/24/2018) Performed for S/P liver transplant, biliary anastomosis without stent or T-tube (HCC) * MAGNESIUM BLOOD(Performed 06/24/2018) Performed for S/P liver transplant, biliary anastomosis without stent or T-tube (HCC) * COMPREHENSIVE METABOLIC PANEL(Performed 06/24/2018) Performed for S/P liver transplant, biliary anastomosis without stent or T-tube (HCC) * US ABDOMEN LTD W COMP DOPPLER(Performed 06/17/2018) Performed for S/P liver transplant (HCC) * PHOSPHORUS BLOOD(Performed 06/17/2018) Performed for S/P liver transplant, biliary anastomosis without stent or T-tube (HCC) * BILIRUBIN DIRECT(Performed 06/17/2018) Performed for S/P liver transplant, biliary anastomosis without stent or T-tube (HCC) * CBC W AUTO DIFFERENTIAL(Performed 06/17/2018) Performed for S/P liver transplant, biliary anastomosis without stent or T-tube (HCC) * GGT(Performed 06/17/2018) Performed for S/P liver transplant, biliary anastomosis without stent or T-tube (HCC) * TACROLIMUS LEVEL(Performed 06/17/2018) Performed for S/P liver transplant, biliary anastomosis without stent or T-tube (HCC) * MAGNESIUM BLOOD(Performed 06/17/2018) Performed for S/P liver transplant, biliary anastomosis without stent or T-tube (HCC) * COMPREHENSIVE METABOLIC PANEL(Performed 06/17/2018) Performed for S/P liver transplant, biliary anastomosis without stent or T-tube (HCC) * PHOSPHORUS BLOOD(Performed 05/27/2018) Performed for S/P liver transplant, biliary anastomosis without stent or T-tube (HCC) * BILIRUBIN DIRECT(Performed 05/27/2018) Performed for S/P liver transplant, biliary anastomosis without stent or T-tube (HCC) * CBC W AUTO DIFFERENTIAL(Performed 05/27/2018) Performed for S/P liver transplant, biliary anastomosis without stent or T-tube (HCC) * GGT(Performed 05/27/2018) Performed for S/P liver transplant, biliary anastomosis without stent or T-tube (HCC) * TACROLIMUS LEVEL(Performed 05/27/2018) Performed for S/P liver transplant, biliary anastomosis without stent or T-tube (HCC) * MAGNESIUM BLOOD(Performed 05/27/2018) Performed for S/P liver transplant, biliary anastomosis without stent or T-tube (HCC) * COMPREHENSIVE METABOLIC PANEL(Performed 05/27/2018) Performed for S/P liver transplant, biliary anastomosis without stent or T-tube (HCC) * BETTINA-MEDRANO VIRUS PCR QUANTITATIVE WHOLE BLOOD(Performed 05/06/2018) Performed for S/P liver transplant (HCC) * PHOSPHORUS BLOOD(Performed 05/06/2018) Performed for S/P liver transplant, biliary anastomosis without stent or T-tube (HCC) * BILIRUBIN DIRECT(Performed 05/06/2018) Performed for S/P liver transplant, biliary anastomosis without stent or T-tube (HCC) * CBC W AUTO DIFFERENTIAL(Performed 05/06/2018) Performed for S/P liver transplant, biliary anastomosis without stent or T-tube (HCC) * GGT(Performed 05/06/2018) Performed for S/P liver transplant, biliary anastomosis without stent or T-tube (HCC) * TACROLIMUS LEVEL(Performed 05/06/2018) Performed for S/P liver transplant, biliary anastomosis without stent or T-tube (HCC) * MAGNESIUM BLOOD(Performed 05/06/2018) Performed for S/P liver transplant, biliary anastomosis without stent or T-tube (HCC) * COMPREHENSIVE METABOLIC PANEL(Performed 05/06/2018) Performed for S/P liver transplant, biliary anastomosis without stent or T-tube (HCC) * ALPHA FETOPROTEIN BLOOD TUMOR MARKER(Performed 04/15/2018) Performed for S/P liver transplant, biliary anastomosis without stent or T-tube (HCC) * VITAMIN D 25-HYDROXY(Performed 04/15/2018) Performed for S/P liver transplant, biliary anastomosis without stent or T-tube (HCC) * LIPID PROFILE(Performed 04/15/2018) Performed for S/P liver transplant, biliary anastomosis without stent or T-tube (HCC) * BETTINA-MEDRANO VIRUS PCR QUANTITATIVE WHOLE BLOOD(Performed 04/15/2018) Performed for S/P liver transplant, biliary anastomosis without stent or T-tube (HCC) * CYTOMEGALOVIRUS QUANT BLOOD(Performed 04/15/2018) Performed for S/P liver transplant, biliary anastomosis without stent or T-tube (HCC) * PHOSPHORUS BLOOD(Performed 04/15/2018) Performed for S/P liver transplant, biliary anastomosis without stent or T-tube (HCC) * BILIRUBIN DIRECT(Performed 04/15/2018) Performed for S/P liver transplant, biliary anastomosis without stent or T-tube (HCC) * CBC W AUTO DIFFERENTIAL(Performed 04/15/2018) Performed for S/P liver transplant, biliary anastomosis without stent or T-tube (HCC) * GGT(Performed 04/15/2018) Performed for S/P liver transplant, biliary anastomosis without stent or T-tube (HCC) * TACROLIMUS LEVEL(Performed 04/15/2018) Performed for S/P liver transplant, biliary anastomosis without stent or T-tube (HCC) * MAGNESIUM BLOOD(Performed 04/15/2018) Performed for S/P liver transplant, biliary anastomosis without stent or T-tube (HCC) * COMPREHENSIVE METABOLIC PANEL(Performed 04/15/2018) Performed for S/P liver transplant, biliary anastomosis without stent or T-tube (HCC) * BILIRUBIN DIRECT(Performed 04/04/2018) Performed for S/P liver transplant (HCC) * PHOSPHORUS BLOOD(Performed 04/04/2018) Performed for S/P liver transplant (HCC) * TACROLIMUS LEVEL(Performed 04/04/2018) Performed for S/P liver transplant (HCC) * MAGNESIUM BLOOD(Performed 04/04/2018) Performed for S/P liver transplant (HCC) * CBC W AUTO DIFFERENTIAL(Performed 04/04/2018) Performed for S/P liver transplant (HCC) * GGT(Performed 04/04/2018) Performed for S/P liver transplant (HCC) * COMPREHENSIVE METABOLIC PANEL(Performed 04/04/2018) Performed for S/P liver transplant (HCC) * BILIRUBIN DIRECT(Performed 03/18/2018) Performed for S/P liver transplant (HCC) * PHOSPHORUS BLOOD(Performed 03/18/2018) Performed for S/P liver transplant (HCC) * TACROLIMUS LEVEL(Performed 03/18/2018) Performed for S/P liver transplant (HCC) * MAGNESIUM BLOOD(Performed 03/18/2018) Performed for S/P liver transplant (HCC) * CBC W AUTO DIFFERENTIAL(Performed 03/18/2018) Performed for S/P liver transplant (HCC) * GGT(Performed 03/18/2018) Performed for S/P liver transplant (HCC) * COMPREHENSIVE METABOLIC PANEL(Performed 03/18/2018) Performed for S/P liver transplant (HCC) * DIFFERENTIAL MANUAL(Performed 03/07/2018) Performed for S/P liver transplant (HCC) * BILIRUBIN DIRECT(Performed 03/07/2018) Performed for S/P liver transplant (HCC) * PHOSPHORUS BLOOD(Performed 03/07/2018) Performed for S/P liver transplant (HCC) * TACROLIMUS LEVEL(Performed 03/07/2018) Performed for S/P liver transplant (HCC) * MAGNESIUM BLOOD(Performed 03/07/2018) Performed for S/P liver transplant (HCC) * CBC W AUTO DIFFERENTIAL(Performed 03/07/2018) Performed for S/P liver transplant (HCC) * GGT(Performed 03/07/2018) Performed for S/P liver transplant (HCC) * COMPREHENSIVE METABOLIC PANEL(Performed 03/07/2018) Performed for S/P liver transplant (HCC) * BILIRUBIN DIRECT(Performed 02/18/2018) Performed for S/P liver transplant (HCC) * PHOSPHORUS BLOOD(Performed 02/18/2018) Performed for S/P liver transplant (HCC) * TACROLIMUS LEVEL(Performed 02/18/2018) Performed for S/P liver transplant (HCC) * MAGNESIUM BLOOD(Performed 02/18/2018) Performed for S/P liver transplant (HCC) * CBC W AUTO DIFFERENTIAL(Performed 02/18/2018) Performed for S/P liver transplant (HCC) * GGT(Performed 02/18/2018) Performed for S/P liver transplant (HCC) * COMPREHENSIVE METABOLIC PANEL(Performed 02/18/2018) Performed for S/P liver transplant (HCC) * BILIRUBIN DIRECT(Performed 02/11/2018) Performed for S/P liver transplant (HCC) * PHOSPHORUS BLOOD(Performed 02/11/2018) Performed for S/P liver transplant (HCC) * TACROLIMUS LEVEL(Performed 02/11/2018) Performed for S/P liver transplant (HCC) * MAGNESIUM BLOOD(Performed 02/11/2018) Performed for S/P liver transplant (HCC) * CBC W AUTO DIFFERENTIAL(Performed 02/11/2018) Performed for S/P liver transplant (HCC) * GGT(Performed 02/11/2018) Performed for S/P liver transplant (HCC) * COMPREHENSIVE METABOLIC PANEL(Performed 02/11/2018) Performed for S/P liver transplant (HCC) * CYTOMEGALOVIRUS QUANT BLOOD(Performed 02/02/2018) Performed for S/P liver transplant (HCC) * BETTINA-MEDRANO VIRUS PCR QUANTITATIVE WHOLE BLOOD(Performed 02/02/2018) Performed for S/P liver transplant (HCC) * DIFFERENTIAL MANUAL(Performed 02/02/2018) Performed for S/P liver transplant (HCC) * BILIRUBIN DIRECT(Performed 02/02/2018) Performed for S/P liver transplant (HCC) * PHOSPHORUS BLOOD(Performed 02/02/2018) Performed for S/P liver transplant (HCC) * TACROLIMUS LEVEL(Performed 02/02/2018) Performed for S/P liver transplant (HCC) * MAGNESIUM BLOOD(Performed 02/02/2018) Performed for S/P liver transplant (HCC) * CBC W AUTO DIFFERENTIAL(Performed 02/02/2018) Performed for S/P liver transplant (HCC) * GGT(Performed 02/02/2018) Performed for S/P liver transplant (HCC) * COMPREHENSIVE METABOLIC PANEL(Performed 02/02/2018) Performed for S/P liver transplant (HCC) * BILIRUBIN DIRECT(Performed 01/07/2018) Performed for S/P liver transplant (HCC) * PHOSPHORUS BLOOD(Performed 01/07/2018) Performed for S/P liver transplant (HCC) * TACROLIMUS LEVEL(Performed 01/07/2018) Performed for S/P liver transplant (HCC) * MAGNESIUM BLOOD(Performed 01/07/2018) Performed for S/P liver transplant (HCC) * CBC W AUTO DIFFERENTIAL(Performed 01/07/2018) Performed for S/P liver transplant (HCC) * GGT(Performed 01/07/2018) Performed for S/P liver transplant (HCC) * COMPREHENSIVE METABOLIC PANEL(Performed 01/07/2018) Performed for S/P liver transplant (HCC) * DIFFERENTIAL MANUAL(Performed 12/31/2017) Performed for S/P liver transplant (HCC) * BILIRUBIN DIRECT(Performed 12/31/2017) Performed for S/P liver transplant (HCC) * PHOSPHORUS BLOOD(Performed 12/31/2017) Performed for S/P liver transplant (HCC) * TACROLIMUS LEVEL(Performed 12/31/2017) Performed for S/P liver transplant (HCC) * MAGNESIUM BLOOD(Performed 12/31/2017) Performed for S/P liver transplant (HCC) * CBC W AUTO DIFFERENTIAL(Performed 12/31/2017) Performed for S/P liver transplant (HCC) * GGT(Performed 12/31/2017) Performed for S/P liver transplant (HCC) * COMPREHENSIVE METABOLIC PANEL(Performed 12/31/2017) Performed for S/P liver transplant (HCC) * US ABDOMEN LTD W COMP DOPPLER(Performed 12/24/2017) Performed for S/P liver transplant (HCC) * BILIRUBIN DIRECT(Performed 12/24/2017) Performed for S/P liver transplant (HCC) * PHOSPHORUS BLOOD(Performed 12/24/2017) Performed for S/P liver transplant (HCC) * TACROLIMUS LEVEL(Performed 12/24/2017) Performed for S/P liver transplant (HCC) * MAGNESIUM BLOOD(Performed 12/24/2017) Performed for S/P liver transplant (HCC) * CBC W AUTO DIFFERENTIAL(Performed 12/24/2017) Performed for S/P liver transplant (HCC) * GGT(Performed 12/24/2017) Performed for S/P liver transplant (HCC) * COMPREHENSIVE METABOLIC PANEL(Performed 12/24/2017) Performed for S/P liver transplant (HCC) * BILIRUBIN DIRECT(Performed 12/17/2017) Performed for S/P liver transplant (HCC) * PHOSPHORUS BLOOD(Performed 12/17/2017) Performed for S/P liver transplant (HCC) * TACROLIMUS LEVEL(Performed 12/17/2017) Performed for S/P liver transplant (HCC) * MAGNESIUM BLOOD(Performed 12/17/2017) Performed for S/P liver transplant (HCC) * CBC W AUTO DIFFERENTIAL(Performed 12/17/2017) Performed for S/P liver transplant (HCC) * GGT(Performed 12/17/2017) Performed for S/P liver transplant (HCC) * COMPREHENSIVE METABOLIC PANEL(Performed 12/17/2017) Performed for S/P liver transplant (HCC) * FL ENDO NASAL SINUS BX POLYP DEBRID ANTONIO(Performed 12/09/2017) Performed for Nasal crusting * DIFFERENTIAL MANUAL(Performed 12/01/2017) Performed for Hx of liver transplant (HCC) * TACROLIMUS LEVEL(Performed 12/01/2017) Performed for Hx of liver transplant (HCC) * MAGNESIUM BLOOD(Performed 12/01/2017) Performed for Hx of liver transplant (HCC) * GGT(Performed 12/01/2017) Performed for Hx of liver transplant (HCC) * CBC W AUTO DIFFERENTIAL(Performed 12/01/2017) Performed for Hx of liver transplant (HCC) * PHOSPHORUS BLOOD(Performed 12/01/2017) Performed for Hx of liver transplant (HCC) * BILIRUBIN DIRECT(Performed 12/01/2017) Performed for Hx of liver transplant (HCC) * COMPREHENSIVE METABOLIC PANEL(Performed 12/01/2017) Performed for Hx of liver transplant (HCC) * FL CTRL NOSEBLEED,ANTER,COMPLEX(Performed 11/29/2017) Performed for Epistaxis * DIFFERENTIAL MANUAL(Performed 11/15/2017) Performed for Hx of liver transplant (HCC) * TACROLIMUS LEVEL(Performed 11/15/2017) Performed for Hx of liver transplant (HCC) * MAGNESIUM BLOOD(Performed 11/15/2017) Performed for Hx of liver transplant (HCC) * GGT(Performed 11/15/2017) Performed for Hx of liver transplant (HCC) * CBC W AUTO DIFFERENTIAL(Performed 11/15/2017) Performed for Hx of liver transplant (HCC) * BILIRUBIN DIRECT(Performed 11/15/2017) Performed for Hx of liver transplant (HCC) * COMPREHENSIVE METABOLIC PANEL(Performed 11/15/2017) Performed for Hx of liver transplant (HCC) * TACROLIMUS LEVEL(Performed 11/05/2017) Performed for Hx of liver transplant (HCC) * MAGNESIUM BLOOD(Performed 11/05/2017) Performed for Hx of liver transplant (HCC) * GGT(Performed 11/05/2017) Performed for Hx of liver transplant (HCC) * CBC W AUTO DIFFERENTIAL(Performed 11/05/2017) Performed for Hx of liver transplant (HCC) * PHOSPHORUS BLOOD(Performed 11/05/2017) Performed for Hx of liver transplant (HCC) * BILIRUBIN DIRECT(Performed 11/05/2017) Performed for Hx of liver transplant (HCC) * COMPREHENSIVE METABOLIC PANEL(Performed 11/05/2017) Performed for Hx of liver transplant (HCC) * DIFFERENTIAL MANUAL(Performed 10/29/2017) Performed for Hx of liver transplant (HCC) * TACROLIMUS LEVEL(Performed 10/29/2017) Performed for Hx of liver transplant (HCC) * MAGNESIUM BLOOD(Performed 10/29/2017) Performed for Hx of liver transplant (HCC) * GGT(Performed 10/29/2017) Performed for Hx of liver transplant (HCC) * CBC W AUTO DIFFERENTIAL(Performed 10/29/2017) Performed for Hx of liver transplant (HCC) * PHOSPHORUS BLOOD(Performed 10/29/2017) Performed for Hx of liver transplant (HCC) * BILIRUBIN DIRECT(Performed 10/29/2017) Performed for Hx of liver transplant (HCC) * COMPREHENSIVE METABOLIC PANEL(Performed 10/29/2017) Performed for Hx of liver transplant (HCC) * DIFFERENTIAL MANUAL(Performed 10/25/2017) Performed for Hx of liver transplant (HCC) * TACROLIMUS LEVEL(Performed 10/25/2017) Performed for Hx of liver transplant (HCC) * MAGNESIUM BLOOD(Performed 10/25/2017) Performed for Hx of liver transplant (HCC) * GGT(Performed 10/25/2017) Performed for Hx of liver transplant (HCC) * CBC W AUTO DIFFERENTIAL(Performed 10/25/2017) Performed for Hx of liver transplant (HCC) * PHOSPHORUS BLOOD(Performed 10/25/2017) Performed for Hx of liver transplant (HCC) * BILIRUBIN DIRECT(Performed 10/25/2017) Performed for Hx of liver transplant (HCC) * COMPREHENSIVE METABOLIC PANEL(Performed 10/25/2017) Performed for Hx of liver transplant (HCC) * DIFFERENTIAL MANUAL(Performed 10/22/2017) Performed for Hx of liver transplant (HCC) * TACROLIMUS LEVEL(Performed 10/22/2017) Performed for Hx of liver transplant (HCC) * MAGNESIUM BLOOD(Performed 10/22/2017) Performed for Hx of liver transplant (HCC) * GGT(Performed 10/22/2017) Performed for Hx of liver transplant (HCC) * CBC W AUTO DIFFERENTIAL(Performed 10/22/2017) Performed for Hx of liver transplant (HCC) * PHOSPHORUS BLOOD(Performed 10/22/2017) Performed for Hx of liver transplant (HCC) * BILIRUBIN DIRECT(Performed 10/22/2017) Performed for Hx of liver transplant (HCC) * COMPREHENSIVE METABOLIC PANEL(Performed 10/22/2017) Performed for Hx of liver transplant (HCC) * DIFFERENTIAL MANUAL(Performed 10/08/2017) Performed for Hx of liver transplant (HCC) * TACROLIMUS LEVEL(Performed 10/08/2017) Performed for Hx of liver transplant (HCC) * MAGNESIUM BLOOD(Performed 10/08/2017) Performed for Hx of liver transplant (HCC) * GGT(Performed 10/08/2017) Performed for Hx of liver transplant (HCC) * CBC W AUTO DIFFERENTIAL(Performed 10/08/2017) Performed for Hx of liver transplant (HCC) * PHOSPHORUS BLOOD(Performed 10/08/2017) Performed for Hx of liver transplant (HCC) * BILIRUBIN DIRECT(Performed 10/08/2017) Performed for Hx of liver transplant (HCC) * COMPREHENSIVE METABOLIC PANEL(Performed 10/08/2017) Performed for Hx of liver transplant (HCC) * TACROLIMUS LEVEL(Performed 09/24/2017) Performed for Hx of liver transplant (HCC) * MAGNESIUM BLOOD(Performed 09/24/2017) Performed for Hx of liver transplant (HCC) * GGT(Performed 09/24/2017) Performed for Hx of liver transplant (HCC) * CBC W AUTO DIFFERENTIAL(Performed 09/24/2017) Performed for Hx of liver transplant (HCC) * PHOSPHORUS BLOOD(Performed 09/24/2017) Performed for Hx of liver transplant (HCC) * BILIRUBIN DIRECT(Performed 09/24/2017) Performed for Hx of liver transplant (HCC) * COMPREHENSIVE METABOLIC PANEL(Performed 09/24/2017) Performed for Hx of liver transplant (HCC) * DIFFERENTIAL MANUAL(Performed 09/14/2017) Performed for Hx of liver transplant (HCC) * TACROLIMUS LEVEL(Performed 09/14/2017) Performed for Hx of liver transplant (HCC) * MAGNESIUM BLOOD(Performed 09/14/2017) Performed for Hx of liver transplant (HCC) * GGT(Performed 09/14/2017) Performed for Hx of liver transplant (HCC) * CBC W AUTO DIFFERENTIAL(Performed 09/14/2017) Performed for Hx of liver transplant (HCC) * PHOSPHORUS BLOOD(Performed 09/14/2017) Performed for Hx of liver transplant (HCC) * BILIRUBIN DIRECT(Performed 09/14/2017) Performed for Hx of liver transplant (HCC) * COMPREHENSIVE METABOLIC PANEL(Performed 09/14/2017) Performed for Hx of liver transplant (HCC) * BETTINA-MEDRANO VIRUS PCR QUANTITATIVE WHOLE BLOOD(Performed 08/30/2017) Performed for Hx of liver transplant (HCC) * TACROLIMUS LEVEL(Performed 08/30/2017) Performed for Hx of liver transplant (HCC) * MAGNESIUM BLOOD(Performed 08/30/2017) Performed for Hx of liver transplant (HCC) * GGT(Performed 08/30/2017) Performed for Hx of liver transplant (HCC) * CBC W AUTO DIFFERENTIAL(Performed 08/30/2017) Performed for Hx of liver transplant (HCC) * PHOSPHORUS BLOOD(Performed 08/30/2017) Performed for Hx of liver transplant (HCC) * BILIRUBIN DIRECT(Performed 08/30/2017) Performed for Hx of liver transplant (HCC) * COMPREHENSIVE METABOLIC PANEL(Performed 08/30/2017) Performed for Hx of liver transplant (HCC) * CYTOMEGALOVIRUS DNA RT-PCR QUANT(Performed 08/30/2017) Performed for Hx of liver transplant (HCC) * TACROLIMUS LEVEL(Performed 08/24/2017) Performed for Hx of liver transplant (HCC) * MAGNESIUM BLOOD(Performed 08/24/2017) Performed for Hx of liver transplant (HCC) * COMPREHENSIVE METABOLIC PANEL(Performed 08/24/2017) Performed for Hx of liver transplant (HCC) * CBC W AUTO DIFFERENTIAL(Performed 08/24/2017) Performed for Hx of liver transplant (HCC) * GGT(Performed 08/18/2017) Performed for S/P liver transplant, biliary anastomosis without stent or T-tube (HCC) * BILIRUBIN DIRECT(Performed 08/18/2017) Performed for Hx of liver transplant (HCC) * COMPREHENSIVE METABOLIC PANEL(Performed 08/18/2017) Performed for Transplant rejection * CBC W AUTO DIFFERENTIAL(Performed 08/18/2017) Performed for Transplant rejection * TACROLIMUS LEVEL(Performed 08/18/2017) Performed for Transplant rejection * BILIRUBIN DIRECT(Performed 08/09/2017) Performed for Hx of liver transplant (HCC) * TACROLIMUS LEVEL(Performed 08/09/2017) Performed for Hx of liver transplant (HCC) * GGT(Performed 08/09/2017) Performed for Hx of liver transplant (HCC) * MAGNESIUM BLOOD(Performed 08/09/2017) Performed for Hx of liver transplant (HCC) * COMPREHENSIVE METABOLIC PANEL(Performed 08/09/2017) Performed for Hx of liver transplant (HCC) * CBC W AUTO DIFFERENTIAL(Performed 08/09/2017) Performed for Hx of liver transplant (HCC) * PT PTT PANEL(Performed 08/09/2017) Performed for S/P liver transplant, biliary anastomosis without stent or T-tube (HCC) * PT PTT PANEL(Performed 08/06/2017) Performed for S/P liver transplant, biliary anastomosis without stent or T-tube (HCC) * BILIRUBIN DIRECT(Performed 08/06/2017) Performed for Hx of liver transplant (HCC) * TACROLIMUS LEVEL(Performed 08/06/2017) Performed for Hx of liver transplant (HCC) * GGT(Performed 08/06/2017) Performed for Hx of liver transplant (HCC) * MAGNESIUM BLOOD(Performed 08/06/2017) Performed for Hx of liver transplant (HCC) * COMPREHENSIVE METABOLIC PANEL(Performed 08/06/2017) Performed for Hx of liver transplant (HCC) * CBC W AUTO DIFFERENTIAL(Performed 08/06/2017) Performed for Hx of liver transplant (HCC) * CBC W AUTO DIFFERENTIAL(Performed 07/30/2017) * PHOSPHORUS BLOOD(Performed 07/30/2017) * MAGNESIUM BLOOD(Performed 07/30/2017) * GGT(Performed 07/30/2017) * COMPREHENSIVE METABOLIC PANEL(Performed 07/30/2017) * TACROLIMUS LEVEL(Performed 07/30/2017) * DIFFERENTIAL MANUAL(Performed 07/29/2017) * PARVOVIRUS B19 PCR QUANT(Performed 07/29/2017) * HERPES VIRUS 6 DNA QUAL PCR(Performed 07/29/2017) * CBC W AUTO DIFFERENTIAL(Performed 07/29/2017) * PHOSPHORUS BLOOD(Performed 07/29/2017) * MAGNESIUM BLOOD(Performed 07/29/2017) * GGT(Performed 07/29/2017) * COMPREHENSIVE METABOLIC PANEL(Performed 07/29/2017) * TACROLIMUS LEVEL(Performed 07/29/2017) * BILIRUBIN DIRECT(Performed 07/29/2017) * OCCULT BLOOD FECES(Performed 07/28/2017) * RESPIRATORY PATHOGEN PANEL BY PCR(Performed 07/28/2017) * US ABDOMEN LTD W COMP DOPPLER(Performed 07/28/2017) Performed for Liver transplant rejection (HCC) * DIFFERENTIAL MANUAL(Performed 07/28/2017) * BILIRUBIN DIRECT(Performed 07/28/2017) * CYTOMEGALOVIRUS DNA RT-PCR QUANT (VIRACOR)(Performed 07/28/2017) * BETTINA-MEDRANO VIRUS PCR QUANTITATIVE WHOLE BLOOD(Performed 07/28/2017) * HLA SINGLE BEAD TEST PANEL(Performed 07/28/2017) Performed for Liver transplant rejection (HCC) * CBC W AUTO DIFFERENTIAL(Performed 07/28/2017) * PHOSPHORUS BLOOD(Performed 07/28/2017) * MAGNESIUM BLOOD(Performed 07/28/2017) * GGT(Performed 07/28/2017) * COMPREHENSIVE METABOLIC PANEL(Performed 07/28/2017) * TACROLIMUS LEVEL(Performed 07/28/2017) * CULTURE MRSA(Performed 07/27/2017) * INFLUENZA A+B ANTIGEN RAPID(Performed 07/27/2017) * XR CHEST 1VW(Performed 07/27/2017) Performed for Sepsis, due to unspecified organism * CULTURE BLOOD(Performed 07/27/2017) * URINALYSIS W/MICROSCOPIC REFLEX TO CULTURE(Performed 07/27/2017) * CULTURE URINE(Performed 07/27/2017) * EKG 15-LEAD(Performed 07/27/2017) Performed for Syncope and collapse * CT HEAD WO CONTRAST(Performed 07/27/2017) Performed for Syncope and collapse * BILIRUBIN DIRECT(Performed 07/27/2017) * GGT(Performed 07/27/2017) Performed for Hx of liver transplant (HCC) * DIFFERENTIAL MANUAL(Performed 07/27/2017) * TACROLIMUS LEVEL(Performed 07/27/2017) * CK BLOOD(Performed 07/27/2017) * PTT(Performed 07/27/2017) * PT-INR(Performed 07/27/2017) * COMPREHENSIVE METABOLIC PANEL(Performed 07/27/2017) * CBC W AUTO DIFFERENTIAL(Performed 07/27/2017) * TACROLIMUS LEVEL(Performed 07/24/2017) * CBC W AUTO DIFFERENTIAL(Performed 07/24/2017) * MAGNESIUM BLOOD(Performed 07/24/2017) * BILIRUBIN DIRECT(Performed 07/24/2017) * COMPREHENSIVE METABOLIC PANEL(Performed 07/24/2017) * PHOSPHORUS BLOOD(Performed 07/24/2017) * GGT(Performed 07/24/2017) * US GUIDE NEEDLE PLACEMENT(Performed 07/23/2017) Performed for Transplant rejection * VIRAL CULTURE MISC(Performed 07/23/2017) * PATHOLOGY TISSUE EXAM (STL)(Performed 07/23/2017) Performed for Elevated liver enzymes * BIOPSY LIVER (NEEDLE/PERCUTANEOUS)(Performed 07/23/2017) * PREPARE RBC LEUKOREDUCED UNIT(Performed 07/23/2017) * TYPE + SCREEN PANEL(Performed 07/23/2017) * DIFFERENTIAL MANUAL(Performed 07/23/2017) * TACROLIMUS LEVEL(Performed 07/23/2017) * CBC W AUTO DIFFERENTIAL(Performed 07/23/2017) * MAGNESIUM BLOOD(Performed 07/23/2017) * BILIRUBIN DIRECT(Performed 07/23/2017) * COMPREHENSIVE METABOLIC PANEL(Performed 07/23/2017) * PHOSPHORUS BLOOD(Performed 07/23/2017) * GGT(Performed 07/23/2017) * NEEDLE BIOPSY, LIVER(Performed 07/23/2017) Performed for S/P liver transplant, biliary anastomosis without stent or T-tube (HCC), Transplant rejection * HCG URINE QUALITATIVE(Performed 07/22/2017) * DIFFERENTIAL MANUAL(Performed 07/22/2017) * CBC W AUTO DIFFERENTIAL(Performed 07/22/2017) * MAGNESIUM BLOOD(Performed 07/22/2017) * BILIRUBIN DIRECT(Performed 07/22/2017) * COMPREHENSIVE METABOLIC PANEL(Performed 07/22/2017) * PHOSPHORUS BLOOD(Performed 07/22/2017) * GGT(Performed 07/22/2017) * CBC W AUTO DIFFERENTIAL(Performed 07/21/2017) * MAGNESIUM BLOOD(Performed 07/21/2017) * BILIRUBIN DIRECT(Performed 07/21/2017) * COMPREHENSIVE METABOLIC PANEL(Performed 07/21/2017) * PHOSPHORUS BLOOD(Performed 07/21/2017) * GGT(Performed 07/21/2017) * MAGNESIUM BLOOD(Performed 07/20/2017) * BILIRUBIN DIRECT(Performed 07/20/2017) * COMPREHENSIVE METABOLIC PANEL(Performed 07/20/2017) * PHOSPHORUS BLOOD(Performed 07/20/2017) * GGT(Performed 07/20/2017) * TACROLIMUS LEVEL(Performed 07/20/2017) * CBC W/O DIFFERENTIAL(Performed 07/20/2017) * MAGNESIUM BLOOD(Performed 07/19/2017) * BILIRUBIN DIRECT(Performed 07/19/2017) * COMPREHENSIVE METABOLIC PANEL(Performed 07/19/2017) * PT-INR(Performed 07/19/2017) * PHOSPHORUS BLOOD(Performed 07/19/2017) * GGT(Performed 07/19/2017) * TACROLIMUS LEVEL(Performed 07/19/2017) * CBC W/O DIFFERENTIAL(Performed 07/19/2017) * TACROLIMUS LEVEL(Performed 07/18/2017) * MAGNESIUM BLOOD(Performed 07/18/2017) * BILIRUBIN DIRECT(Performed 07/18/2017) * COMPREHENSIVE METABOLIC PANEL(Performed 07/18/2017) * PHOSPHORUS BLOOD(Performed 07/18/2017) * GGT(Performed 07/18/2017) * CBC W/O DIFFERENTIAL(Performed 07/18/2017) * MAGNESIUM BLOOD(Performed 07/17/2017) * PT-INR(Performed 07/17/2017) * BILIRUBIN DIRECT(Performed 07/17/2017) * COMPREHENSIVE METABOLIC PANEL(Performed 07/17/2017) * PHOSPHORUS BLOOD(Performed 07/17/2017) * GGT(Performed 07/17/2017) * TACROLIMUS LEVEL(Performed 07/17/2017) * CBC W/O DIFFERENTIAL(Performed 07/17/2017) * PHOSPHORUS BLOOD(Performed 07/16/2017) * MAGNESIUM BLOOD(Performed 07/16/2017) * BILIRUBIN DIRECT(Performed 07/16/2017) * CBC W/O DIFFERENTIAL(Performed 07/16/2017) * COMPREHENSIVE METABOLIC PANEL(Performed 07/16/2017) * GGT(Performed 07/16/2017) * BETTINA-MEDRANO VIRUS PCR QUANTITATIVE WHOLE BLOOD(Performed 07/16/2017) * XR CHEST POST PROCEDURE(Performed 07/16/2017) Performed for Liver transplant rejection (HCC) * HGB HCT PANEL(Performed 07/14/2017) Performed for S/P liver transplant, biliary anastomosis without stent or T-tube (HCC) * US GUIDE NEEDLE PLACEMENT(Performed 07/14/2017) Performed for Elevated transaminase level, Elevated liver enzymes and Direct Hyperbilirubinemia * VIRAL CULTURE MISC(Performed 07/14/2017) Performed for Transplant rejection * PATHOLOGY TISSUE EXAM (STL)(Performed 07/14/2017) Performed for Abdominal pain, unspecified abdominal location * BIOPSY LIVER (NEEDLE/PERCUTANEOUS)(Performed 07/14/2017) Performed for Abdominal pain, unspecified abdominal location * PREPARE RBC LEUKOREDUCED UNIT(Performed 07/14/2017) * TYPE + SCREEN PANEL(Performed 07/14/2017) * HCG URINE QUALITATIVE - POCT (IP) BEAKER(Performed 07/14/2017) * NEEDLE BIOPSY, LIVER(Performed 07/14/2017) * DIFFERENTIAL MANUAL(Performed 07/12/2017) Performed for Hx of liver transplant (HCC) * PT PTT PANEL(Performed 07/12/2017) Performed for S/P liver transplant, biliary anastomosis without stent or T-tube (HCC) * BILIRUBIN DIRECT(Performed 07/12/2017) Performed for Hx of liver transplant (HCC) * TACROLIMUS LEVEL(Performed 07/12/2017) Performed for Hx of liver transplant (HCC) * GGT(Performed 07/12/2017) Performed for Hx of liver transplant (HCC) * MAGNESIUM BLOOD(Performed 07/12/2017) Performed for Hx of liver transplant (HCC) * COMPREHENSIVE METABOLIC PANEL(Performed 07/12/2017) Performed for Hx of liver transplant (HCC) * CBC W AUTO DIFFERENTIAL(Performed 07/12/2017) Performed for Hx of liver transplant (HCC) * BILIRUBIN DIRECT(Performed 07/05/2017) Performed for Hx of liver transplant (HCC) * TACROLIMUS LEVEL(Performed 07/05/2017) Performed for Hx of liver transplant (HCC) * GGT(Performed 07/05/2017) Performed for Hx of liver transplant (HCC) * MAGNESIUM BLOOD(Performed 07/05/2017) Performed for Hx of liver transplant (HCC) * COMPREHENSIVE METABOLIC PANEL(Performed 07/05/2017) Performed for Hx of liver transplant (HCC) * CBC W AUTO DIFFERENTIAL(Performed 07/05/2017) Performed for Hx of liver transplant (HCC) * PT PTT PANEL(Performed 07/05/2017) Performed for S/P liver transplant, biliary anastomosis without stent or T-tube (HCC) * PT PTT PANEL(Performed 06/28/2017) Performed for S/P liver transplant, biliary anastomosis without stent or T-tube (HCC) * BILIRUBIN DIRECT(Performed 06/28/2017) Performed for Hx of liver transplant (HCC) * GGT(Performed 06/28/2017) Performed for Hx of liver transplant (HCC) * MAGNESIUM BLOOD(Performed 06/28/2017) Performed for Hx of liver transplant (HCC) * COMPREHENSIVE METABOLIC PANEL(Performed 06/28/2017) Performed for Hx of liver transplant (HCC) * CBC W AUTO DIFFERENTIAL(Performed 06/28/2017) Performed for Hx of liver transplant (HCC) * TACROLIMUS LEVEL(Performed 06/28/2017) Performed for Transplant rejection * BILIRUBIN DIRECT(Performed 06/21/2017) Performed for Hx of liver transplant (HCC) * TACROLIMUS LEVEL(Performed 06/21/2017) Performed for Hx of liver transplant (HCC) * GGT(Performed 06/21/2017) Performed for Hx of liver transplant (HCC) * MAGNESIUM BLOOD(Performed 06/21/2017) Performed for Hx of liver transplant (HCC) * COMPREHENSIVE METABOLIC PANEL(Performed 06/21/2017) Performed for Hx of liver transplant (HCC) * CBC W AUTO DIFFERENTIAL(Performed 06/21/2017) Performed for Hx of liver transplant (HCC) * PT PTT PANEL(Performed 06/21/2017) Performed for S/P liver transplant, biliary anastomosis without stent or T-tube (HCC) * PT PTT PANEL(Performed 06/15/2017) Performed for S/P liver transplant, biliary anastomosis without stent or T-tube (HCC) * BILIRUBIN DIRECT(Performed 06/15/2017) Performed for Hx of liver transplant (HCC) * TACROLIMUS LEVEL(Performed 06/15/2017) Performed for Hx of liver transplant (HCC) * GGT(Performed 06/15/2017) Performed for Hx of liver transplant (HCC) * MAGNESIUM BLOOD(Performed 06/15/2017) Performed for Hx of liver transplant (HCC) * COMPREHENSIVE METABOLIC PANEL(Performed 06/15/2017) Performed for Hx of liver transplant (HCC) * CBC W AUTO DIFFERENTIAL(Performed 06/15/2017) Performed for Hx of liver transplant (HCC) * BILIRUBIN DIRECT(Performed 06/14/2017) Performed for Hx of liver transplant (HCC) * TACROLIMUS LEVEL(Performed 06/14/2017) Performed for Hx of liver transplant (HCC) * GGT(Performed 06/14/2017) Performed for Hx of liver transplant (HCC) * MAGNESIUM BLOOD(Performed 06/14/2017) Performed for Hx of liver transplant (HCC) * COMPREHENSIVE METABOLIC PANEL(Performed 06/14/2017) Performed for Hx of liver transplant (HCC) * TACROLIMUS LEVEL(Performed 06/07/2017) Performed for Hx of liver transplant (HCC) * GGT(Performed 06/07/2017) Performed for Hx of liver transplant (HCC) * MAGNESIUM BLOOD(Performed 06/07/2017) Performed for Hx of liver transplant (HCC) * COMPREHENSIVE METABOLIC PANEL(Performed 06/07/2017) Performed for Hx of liver transplant (HCC) * CBC W AUTO DIFFERENTIAL(Performed 06/07/2017) Performed for Hx of liver transplant (HCC) * PT PTT PANEL(Performed 06/07/2017) Performed for Liver transplant failure (HCC) * HGB HCT PANEL(Performed 06/03/2017) Performed for Elevated transaminase level * US GUIDE NEEDLE PLACEMENT(Performed 06/03/2017) Performed for Transplant rejection * VIRAL CULTURE MISC(Performed 06/03/2017) Performed for HCC (hepatocellular carcinoma) (HCC) * PATHOLOGY TISSUE EXAM (STL)(Performed 06/03/2017) Performed for Elevated liver enzymes * PREPARE RBC LEUKOREDUCED UNIT(Performed 06/03/2017) * BIOPSY LIVER (NEEDLE/PERCUTANEOUS)(Performed 06/03/2017) Performed for Elevated liver enzymes * TYPE + SCREEN PANEL(Performed 06/03/2017) * DIFFERENTIAL MANUAL(Performed 06/03/2017) Performed for S/P liver transplant, biliary anastomosis without stent or T-tube (HCC) * CBC W AUTO DIFFERENTIAL(Performed 06/03/2017) Performed for S/P liver transplant, biliary anastomosis without stent or T-tube (HCC) * PT PTT PANEL(Performed 06/03/2017) Performed for S/P liver transplant, biliary anastomosis without stent or T-tube (HCC) * HCG URINE QUALITATIVE - POCT (IP) BEAKER(Performed 06/03/2017) Performed for S/P liver transplant, biliary anastomosis without stent or T-tube (HCC) * NEEDLE BIOPSY, LIVER(Performed 06/03/2017) * BILIRUBIN DIRECT(Performed 05/31/2017) Performed for Transplant rejection * GGT(Performed 05/31/2017) Performed for Transplant rejection * CBC W AUTO DIFFERENTIAL(Performed 05/31/2017) Performed for Transplant rejection * TACROLIMUS LEVEL(Performed 05/31/2017) Performed for Transplant rejection * MAGNESIUM BLOOD(Performed 05/31/2017) Performed for Transplant rejection * COMPREHENSIVE METABOLIC PANEL(Performed 05/31/2017) Performed for Transplant rejection * US ABDOMEN LTD W COMP DOPPLER(Performed 05/25/2017) Performed for S/P liver transplant (HCC) * BK VIRUS PCR QUANTITATIVE URINE(Performed 05/25/2017) Performed for S/P liver transplant (HCC) * DIFFERENTIAL MANUAL(Performed 05/25/2017) Performed for Transplant rejection * BILIRUBIN DIRECT(Performed 05/25/2017) Performed for Transplant rejection * GGT(Performed 05/25/2017) Performed for Transplant rejection * CBC W AUTO DIFFERENTIAL(Performed 05/25/2017) Performed for Transplant rejection * TACROLIMUS LEVEL(Performed 05/25/2017) Performed for Transplant rejection * MAGNESIUM BLOOD(Performed 05/25/2017) Performed for Transplant rejection * COMPREHENSIVE METABOLIC PANEL(Performed 05/25/2017) Performed for Transplant rejection * HEPATITIS SCREEN ACUTE(Performed 05/25/2017) Performed for S/P liver transplant (HCC) * HERPES VIRUS 6 QUANT RT PCR (VIRACOR)(Performed 05/25/2017) Performed for S/P liver transplant (HCC) * CYTOMEGALOVIRUS DNA RT-PCR QUANT (VIRACOR)(Performed 05/25/2017) Performed for S/P liver transplant (HCC) * BETTINA-MEDRANO VIRUS PCR QUANTITATIVE WHOLE BLOOD(Performed 05/25/2017) Performed for S/P liver transplant (HCC) * DIFFERENTIAL MANUAL(Performed 05/24/2017) Performed for Transplant rejection * PT PTT PANEL(Performed 05/24/2017) Performed for Liver transplant rejection (HCC) * BILIRUBIN DIRECT(Performed 05/24/2017) Performed for Transplant rejection * GGT(Performed 05/24/2017) Performed for Transplant rejection * CBC W AUTO DIFFERENTIAL(Performed 05/24/2017) Performed for Transplant rejection * TACROLIMUS LEVEL(Performed 05/24/2017) Performed for Transplant rejection * MAGNESIUM BLOOD(Performed 05/24/2017) Performed for Transplant rejection * COMPREHENSIVE METABOLIC PANEL(Performed 05/24/2017) Performed for Transplant rejection * DIFFERENTIAL MANUAL(Performed 05/21/2017) Performed for Liver transplant failure (HCC) * TACROLIMUS LEVEL(Performed 05/21/2017) Performed for Liver transplant failure (HCC) * HEPATIC FUNCTION PANEL(Performed 05/21/2017) Performed for Liver transplant failure (HCC) * GGT(Performed 05/21/2017) Performed for Liver transplant failure (HCC) * CBC W AUTO DIFFERENTIAL(Performed 05/21/2017) Performed for Liver transplant failure (HCC) * PT-INR(Performed 05/20/2017) * GGT(Performed 05/20/2017) * HEPATIC FUNCTION PANEL(Performed 05/20/2017) * PT-INR(Performed 05/19/2017) * GGT(Performed 05/19/2017) * HEPATIC FUNCTION PANEL(Performed 05/19/2017) * TACROLIMUS LEVEL(Performed 05/19/2017) * XR CHEST POST PROCEDURE(Performed 05/18/2017) Performed for Encounter for central line placement * XR CHEST POST PROCEDURE(Performed 05/18/2017) Performed for Encounter for central line placement * PT-INR(Performed 05/18/2017) Performed for HCC (hepatocellular carcinoma) (HCC) * GGT(Performed 05/18/2017) Performed for HCC (hepatocellular carcinoma) (HCC) * HEPATIC FUNCTION PANEL(Performed 05/18/2017) Performed for HCC (hepatocellular carcinoma) (HCC) * TACROLIMUS LEVEL(Performed 05/17/2017) * CBC W AUTO DIFFERENTIAL(Performed 05/17/2017) * HGB HCT PANEL(Performed 05/17/2017) Performed for HCC (hepatocellular carcinoma) (HCC) * US GUIDE NEEDLE PLACEMENT(Performed 05/17/2017) Performed for S/P liver transplant (HCC) * PATHOLOGY TISSUE EXAM (STL)(Performed 05/17/2017) Performed for Pain, abdominal, generalized * VIRAL CULTURE MISC(Performed 05/17/2017) Performed for Elevated transaminase level * BIOPSY LIVER (NEEDLE/PERCUTANEOUS)(Performed 05/17/2017) Performed for Pain, abdominal, generalized * HCG URINE QUALITATIVE - POCT (IP) BEAKER(Performed 05/17/2017) * TYPE + SCREEN PANEL(Performed 05/17/2017) Performed for Complication of transplanted liver, unspecified complication (HCC) * DIFFERENTIAL MANUAL(Performed 05/17/2017) Performed for Complication of transplanted liver, unspecified complication (HCC) * CBC W AUTO DIFFERENTIAL(Performed 05/17/2017) Performed for Complication of transplanted liver, unspecified complication (HCC) * PT PTT PANEL(Performed 05/17/2017) Performed for Complication of transplanted liver, unspecified complication (HCC) * NEEDLE BIOPSY, LIVER(Performed 05/17/2017) Performed for Elevated transaminase level * BILIRUBIN DIRECT(Performed 05/11/2017) Performed for Transplant rejection * GGT(Performed 05/11/2017) Performed for Transplant rejection * CBC W AUTO DIFFERENTIAL(Performed 05/11/2017) Performed for Transplant rejection * MAGNESIUM BLOOD(Performed 05/11/2017) Performed for Transplant rejection * COMPREHENSIVE METABOLIC PANEL(Performed 05/11/2017) Performed for Transplant rejection * BILIRUBIN DIRECT(Performed 05/05/2017) Performed for Transplant rejection * GGT(Performed 05/05/2017) Performed for Transplant rejection * CBC W AUTO DIFFERENTIAL(Performed 05/05/2017) Performed for Transplant rejection * TACROLIMUS LEVEL(Performed 05/05/2017) Performed for Transplant rejection * MAGNESIUM BLOOD(Performed 05/05/2017) Performed for Transplant rejection * COMPREHENSIVE METABOLIC PANEL(Performed 05/05/2017) Performed for Transplant rejection * HLA SINGLE BEAD TEST PANEL(Performed 05/05/2017) Performed for S/P liver transplant (HCC) * BILIRUBIN DIRECT(Performed 04/27/2017) Performed for Transplant rejection * GGT(Performed 04/27/2017) Performed for Transplant rejection * CBC W AUTO DIFFERENTIAL(Performed 04/27/2017) Performed for Transplant rejection * TACROLIMUS LEVEL(Performed 04/27/2017) Performed for Transplant rejection * MAGNESIUM BLOOD(Performed 04/27/2017) Performed for Transplant rejection * COMPREHENSIVE METABOLIC PANEL(Performed 04/27/2017) Performed for Transplant rejection * BILIRUBIN DIRECT(Performed 04/20/2017) Performed for Transplant rejection * GGT(Performed 04/20/2017) Performed for Transplant rejection * CBC W AUTO DIFFERENTIAL(Performed 04/20/2017) Performed for Transplant rejection * TACROLIMUS LEVEL(Performed 04/20/2017) Performed for Transplant rejection * MAGNESIUM BLOOD(Performed 04/20/2017) Performed for Transplant rejection * COMPREHENSIVE METABOLIC PANEL(Performed 04/20/2017) Performed for Transplant rejection * DIFFERENTIAL MANUAL(Performed 04/14/2017) Performed for Transplant rejection * BILIRUBIN DIRECT(Performed 04/14/2017) Performed for Transplant rejection * GGT(Performed 04/14/2017) Performed for Transplant rejection * CBC W AUTO DIFFERENTIAL(Performed 04/14/2017) Performed for Transplant rejection * MAGNESIUM BLOOD(Performed 04/14/2017) Performed for Transplant rejection * COMPREHENSIVE METABOLIC PANEL(Performed 04/14/2017) Performed for Transplant rejection * TACROLIMUS LEVEL(Performed 04/14/2017) Performed for Transplant rejection * BILIRUBIN DIRECT(Performed 04/09/2017) Performed for Transplant rejection * GGT(Performed 04/09/2017) Performed for Transplant rejection * CBC W AUTO DIFFERENTIAL(Performed 04/09/2017) Performed for Transplant rejection * MAGNESIUM BLOOD(Performed 04/09/2017) Performed for Transplant rejection * COMPREHENSIVE METABOLIC PANEL(Performed 04/09/2017) Performed for Transplant rejection * US ABDOMEN LTD W COMP DOPPLER(Performed 04/07/2017) Performed for Transplant rejection * TYPE + SCREEN PANEL(Performed 04/06/2017) Performed for Transplant rejection * HEPATIC FUNCTION PANEL(Performed 04/06/2017) Performed for Transplant rejection * CBC W AUTO DIFFERENTIAL(Performed 04/06/2017) Performed for Transplant rejection * HLA SINGLE BEAD TEST PANEL(Performed 04/06/2017) Performed for Transplant rejection * DIFFERENTIAL MANUAL(Performed 04/05/2017) Performed for Transplant rejection * BILIRUBIN DIRECT(Performed 04/05/2017) Performed for Transplant rejection * GGT(Performed 04/05/2017) Performed for Transplant rejection * CBC W AUTO DIFFERENTIAL(Performed 04/05/2017) Performed for Transplant rejection * MAGNESIUM BLOOD(Performed 04/05/2017) Performed for Transplant rejection * COMPREHENSIVE METABOLIC PANEL(Performed 04/05/2017) Performed for Transplant rejection * BETTINA-MEDRANO VIRUS PCR QUANTITATIVE WHOLE BLOOD(Performed 04/01/2017) Performed for S/P liver transplant (HCC) * PT-INR(Performed 04/01/2017) Performed for Transplant rejection * GGT(Performed 04/01/2017) Performed for Transplant rejection * HEPATIC FUNCTION PANEL(Performed 04/01/2017) Performed for Transplant rejection * HLA TYPING DR(Performed 03/29/2017) Performed for S/P liver transplant (HCC) * HLA TYPING A,B,C MULTIPLE ANTIGEN(Performed 03/29/2017) Performed for S/P liver transplant (HCC) * PT-INR(Performed 03/29/2017) Performed for Transplant rejection * GGT(Performed 03/29/2017) Performed for Transplant rejection * BILIRUBIN DIRECT(Performed 03/29/2017) Performed for Transplant rejection * CBC W AUTO DIFFERENTIAL(Performed 03/29/2017) Performed for Transplant rejection * COMPREHENSIVE METABOLIC PANEL(Performed 03/29/2017) Performed for Transplant rejection * HLA SINGLE BEAD TEST PANEL(Performed 03/29/2017) Performed for S/P liver transplant (HCC) * DIFFERENTIAL MANUAL(Performed 03/26/2017) Performed for S/P liver transplant (HCC) * BETTINA-MEDRANO VIRUS PCR QUANTITATIVE WHOLE BLOOD(Performed 03/26/2017) Performed for S/P liver transplant (HCC) * BILIRUBIN DIRECT(Performed 03/26/2017) Performed for S/P liver transplant (HCC) * GGT(Performed 03/26/2017) Performed for S/P liver transplant (HCC) * TACROLIMUS LEVEL(Performed 03/26/2017) Performed for S/P liver transplant (HCC) * MAGNESIUM BLOOD(Performed 03/26/2017) Performed for S/P liver transplant (HCC) * COMPREHENSIVE METABOLIC PANEL(Performed 03/26/2017) Performed for S/P liver transplant (HCC) * CBC W AUTO DIFFERENTIAL(Performed 03/26/2017) Performed for S/P liver transplant (HCC) * PT-INR(Performed 03/26/2017) Performed for Transplant rejection * CYTOMEGALOVIRUS DNA RT-PCR QUANT(Performed 03/26/2017) Performed for S/P liver transplant (HCC) * URINALYSIS W/MICROSCOPIC REFLEX TO CULTURE(Performed 03/22/2017) * BILIRUBIN TOTAL+DIRECT BLOOD PANEL(Performed 03/22/2017) * GGT(Performed 03/22/2017) * COMPREHENSIVE METABOLIC PANEL(Performed 03/22/2017) * US ABDOMEN LTD W COMP DOPPLER(Performed 03/22/2017) Performed for Abdominal pain, right upper quadrant * TACROLIMUS LEVEL(Performed 03/22/2017) * URINALYSIS W/MICROSCOPIC NO CULTURE(Performed 03/21/2017) * TACROLIMUS LEVEL(Performed 03/21/2017) * CULTURE BLOOD(Performed 03/21/2017) * DIFFERENTIAL MANUAL(Performed 03/21/2017) * LIPASE BLOOD(Performed 03/21/2017) * BILIRUBIN TOTAL+DIRECT BLOOD PANEL(Performed 03/21/2017) * CBC W AUTO DIFFERENTIAL(Performed 03/21/2017) * AMMONIA(Performed 03/21/2017) * GGT(Performed 03/21/2017) * PT PTT PANEL(Performed 03/21/2017) * COMPREHENSIVE METABOLIC PANEL(Performed 03/21/2017) * GGT(Performed 03/20/2017) * HEPATIC FUNCTION PANEL(Performed 03/20/2017) * TACROLIMUS LEVEL GASTROENTEROLOGY(Performed 03/19/2017) * GGT(Performed 03/19/2017) * HEPATIC FUNCTION PANEL(Performed 03/19/2017) * TACROLIMUS LEVEL(Performed 03/18/2017) * GGT(Performed 03/18/2017) * HEPATIC FUNCTION PANEL(Performed 03/18/2017) * HEPATIC FUNCTION PANEL(Performed 03/17/2017) * HGB HCT PANEL(Performed 03/16/2017) * US GUIDE NEEDLE PLACEMENT(Performed 03/16/2017) Performed for Elevated liver enzymes, S/P liver transplant, biliary anastomosis without stent or T-tube (HCC) * VIRAL CULTURE MISC(Performed 03/16/2017) Performed for Elevated liver enzymes * PATHOLOGY TISSUE EXAM (STL)(Performed 03/16/2017) Performed for Abdominal pain, unspecified abdominal location * NEEDLE BIOPSY, LIVER(Performed 03/16/2017) Performed for Elevated liver enzymes * BIOPSY LIVER (NEEDLE/PERCUTANEOUS)(Performed 03/16/2017) Performed for Abdominal pain, unspecified abdominal location * CBC W AUTO DIFFERENTIAL(Performed 03/16/2017) Performed for Elevated liver enzymes * HEPATIC FUNCTION PANEL(Performed 03/16/2017) Performed for Elevated liver enzymes * PT PTT PANEL(Performed 03/16/2017) Performed for Elevated liver enzymes * TACROLIMUS LEVEL(Performed 03/16/2017) * HCG URINE QUALITATIVE(Performed 03/16/2017) Performed for Elevated liver enzymes * TYPE + SCREEN PANEL(Performed 03/16/2017) * MRI ABDOMEN W MRCP WWO CONT W3D(Performed 03/15/2017) Performed for Elevated liver enzymes * HEPATITIS SCREEN ACUTE(Performed 03/15/2017) Performed for Elevated liver enzymes * LIPID PROFILE(Performed 03/15/2017) Performed for S/P liver transplant, biliary anastomosis without stent or T-tube (HCC) * PT-INR(Performed 03/15/2017) * CBC W AUTO DIFFERENTIAL(Performed 03/15/2017) * COMPREHENSIVE METABOLIC PANEL(Performed 03/15/2017) * GGT(Performed 03/15/2017) * BILIRUBIN DIRECT(Performed 03/15/2017) * BETTINA-MEDRANO VIRUS PCR QUANTITATIVE WHOLE BLOOD(Performed 03/13/2017) Performed for S/P liver transplant, biliary anastomosis without stent or T-tube (HCC) * TACROLIMUS LEVEL(Performed 03/13/2017) Performed for S/P liver transplant, biliary anastomosis without stent or T-tube (HCC) * GGT(Performed 03/13/2017) Performed for S/P liver transplant, biliary anastomosis without stent or T-tube (HCC) * MAGNESIUM BLOOD(Performed 03/13/2017) Performed for S/P liver transplant, biliary anastomosis without stent or T-tube (HCC) * CBC W AUTO DIFFERENTIAL(Performed 03/13/2017) Performed for S/P liver transplant, biliary anastomosis without stent or T-tube (HCC) * BILIRUBIN DIRECT(Performed 03/13/2017) Performed for S/P liver transplant, biliary anastomosis without stent or T-tube (HCC) * COMPREHENSIVE METABOLIC PANEL(Performed 03/13/2017) Performed for S/P liver transplant, biliary anastomosis without stent or T-tube (HCC) * CYTOMEGALOVIRUS DNA RT-PCR QUANT(Performed 03/13/2017) Performed for S/P liver transplant (HCC) * AMMONIA(Performed 03/09/2017) * TACROLIMUS LEVEL(Performed 03/09/2017) * HEPATIC FUNCTION PANEL(Performed 03/09/2017) * CYTOMEGALOVIRUS QUAL PCR(Performed 03/08/2017) * MRI ANGIO BRAIN ART WWO CONT(Performed 03/08/2017) Performed for History of migraine, HCC (hepatocellular carcinoma) (HCC) * MRI BRAIN WWO CONTRAST(Performed 03/08/2017) Performed for History of migraine, HCC (hepatocellular carcinoma) (HCC) * US ABDOMEN LTD W COMP DOPPLER(Performed 03/08/2017) Performed for Elevated transaminase level, S/P liver transplant, biliary anastomosis without stent or T-tube (HCC) * BILIRUBIN DIRECT(Performed 03/08/2017) * PT-INR(Performed 03/08/2017) * BETTINA-MEDRANO VIRUS ANTIBODY PANEL(Performed 03/08/2017) * COMPREHENSIVE METABOLIC PANEL(Performed 03/08/2017) * GGT(Performed 03/08/2017) * PT PTT PANEL(Performed 03/08/2017) * BILIRUBIN DIRECT(Performed 03/07/2017) * SLIDE SCAN HEMATOLOGY(Performed 03/07/2017) * CBC W AUTO DIFFERENTIAL(Performed 03/07/2017) * COMPREHENSIVE METABOLIC PANEL(Performed 03/07/2017) * TACROLIMUS LEVEL(Performed 03/07/2017) * VITAMIN D 25-HYDROXY(Performed 01/11/2017) Performed for S/P liver transplant, biliary anastomosis without stent or T-tube (HCC) * TACROLIMUS LEVEL(Performed 01/11/2017) Performed for S/P liver transplant, biliary anastomosis without stent or T-tube (HCC) * GGT(Performed 01/11/2017) Performed for S/P liver transplant, biliary anastomosis without stent or T-tube (HCC) * MAGNESIUM BLOOD(Performed 01/11/2017) Performed for S/P liver transplant, biliary anastomosis without stent or T-tube (HCC) * CBC W AUTO DIFFERENTIAL(Performed 01/11/2017) Performed for S/P liver transplant, biliary anastomosis without stent or T-tube (HCC) * BILIRUBIN DIRECT(Performed 01/11/2017) Performed for S/P liver transplant, biliary anastomosis without stent or T-tube (HCC) * COMPREHENSIVE METABOLIC PANEL(Performed 01/11/2017) Performed for S/P liver transplant, biliary anastomosis without stent or T-tube (HCC) * VITAMIN D 25-HYDROXY(Performed 12/28/2016) Performed for S/P liver transplant, biliary anastomosis without stent or T-tube (HCC) * BETTINA-MEDRANO VIRUS PCR QUANTITATIVE WHOLE BLOOD(Performed 12/28/2016) Performed for S/P liver transplant (HCC) * BILIRUBIN DIRECT(Performed 12/28/2016) Performed for S/P liver transplant (HCC) * GGT(Performed 12/28/2016) Performed for S/P liver transplant (HCC) * TACROLIMUS LEVEL(Performed 12/28/2016) Performed for S/P liver transplant (HCC) * MAGNESIUM BLOOD(Performed 12/28/2016) Performed for S/P liver transplant (HCC) * COMPREHENSIVE METABOLIC PANEL(Performed 12/28/2016) Performed for S/P liver transplant (HCC) * CBC W AUTO DIFFERENTIAL(Performed 12/28/2016) Performed for S/P liver transplant (HCC) * CYTOMEGALOVIRUS DNA RT-PCR QUANT(Performed 12/28/2016) Performed for S/P liver transplant (HCC) * BETTINA-MEDRANO VIRUS PCR QUANTITATIVE WHOLE BLOOD(Performed 12/14/2016) Performed for S/P liver transplant (HCC) * BILIRUBIN DIRECT(Performed 12/14/2016) Performed for S/P liver transplant (HCC) * GGT(Performed 12/14/2016) Performed for S/P liver transplant (HCC) * TACROLIMUS LEVEL(Performed 12/14/2016) Performed for S/P liver transplant (HCC) * MAGNESIUM BLOOD(Performed 12/14/2016) Performed for S/P liver transplant (HCC) * COMPREHENSIVE METABOLIC PANEL(Performed 12/14/2016) Performed for S/P liver transplant (HCC) * CBC W AUTO DIFFERENTIAL(Performed 12/14/2016) Performed for S/P liver transplant (HCC) * CYTOMEGALOVIRUS DNA RT-PCR QUANT(Performed 12/14/2016) Performed for S/P liver transplant (HCC) * VITAMIN D 25-HYDROXY(Performed 09/10/2016) Performed for S/P liver transplant, biliary anastomosis without stent or T-tube (HCC) * BETTINA-MEDRANO VIRUS PCR QUANTITATIVE WHOLE BLOOD(Performed 09/10/2016) Performed for S/P liver transplant, biliary anastomosis without stent or T-tube (HCC) * TACROLIMUS LEVEL(Performed 09/10/2016) Performed for S/P liver transplant, biliary anastomosis without stent or T-tube (HCC) * GGT(Performed 09/10/2016) Performed for S/P liver transplant, biliary anastomosis without stent or T-tube (HCC) * MAGNESIUM BLOOD(Performed 09/10/2016) Performed for S/P liver transplant, biliary anastomosis without stent or T-tube (HCC) * CBC W AUTO DIFFERENTIAL(Performed 09/10/2016) Performed for S/P liver transplant, biliary anastomosis without stent or T-tube (HCC) * BILIRUBIN DIRECT(Performed 09/10/2016) Performed for S/P liver transplant, biliary anastomosis without stent or T-tube (HCC) * COMPREHENSIVE METABOLIC PANEL(Performed 09/10/2016) Performed for S/P liver transplant, biliary anastomosis without stent or T-tube (HCC) * CYTOMEGALOVIRUS DNA RT-PCR QUANT(Performed 09/10/2016) Performed for S/P liver transplant, biliary anastomosis without stent or T-tube (HCC) * VITAMIN D 25-HYDROXY(Performed 06/26/2016) Performed for S/P liver transplant, biliary anastomosis without stent or T-tube (HCC) * BETTINA-MEDRANO VIRUS PCR QUANTITATIVE WHOLE BLOOD(Performed 06/26/2016) Performed for S/P liver transplant, biliary anastomosis without stent or T-tube (HCC) * TACROLIMUS LEVEL(Performed 06/26/2016) Performed for S/P liver transplant, biliary anastomosis without stent or T-tube (HCC) * GGT(Performed 06/26/2016) Performed for S/P liver transplant, biliary anastomosis without stent or T-tube (HCC) * MAGNESIUM BLOOD(Performed 06/26/2016) Performed for S/P liver transplant, biliary anastomosis without stent or T-tube (HCC) * CBC W AUTO DIFFERENTIAL(Performed 06/26/2016) Performed for S/P liver transplant, biliary anastomosis without stent or T-tube (HCC) * BILIRUBIN DIRECT(Performed 06/26/2016) Performed for S/P liver transplant, biliary anastomosis without stent or T-tube (HCC) * COMPREHENSIVE METABOLIC PANEL(Performed 06/26/2016) Performed for S/P liver transplant, biliary anastomosis without stent or T-tube (HCC) * IRON + TRANSFERRIN PANEL(Performed 06/26/2016) Performed for S/P liver transplant, biliary anastomosis without stent or T-tube (HCC) * FERRITIN(Performed 06/26/2016) Performed for S/P liver transplant, biliary anastomosis without stent or T-tube (HCC) * CYTOMEGALOVIRUS DNA RT-PCR QUANT(Performed 06/26/2016) Performed for S/P liver transplant, biliary anastomosis without stent or T-tube (HCC) * US ABDOMEN LTD W COMP DOPPLER(Performed 04/10/2016) Performed for S/P liver transplant, biliary anastomosis without stent or T-tube (HCC) * VITAMIN D 25-HYDROXY(Performed 04/10/2016) Performed for S/P liver transplant, biliary anastomosis without stent or T-tube (HCC) * BETTINA-MEDRANO VIRUS PCR QUANTITATIVE WHOLE BLOOD(Performed 04/10/2016) Performed for S/P liver transplant, biliary anastomosis without stent or T-tube (HCC) * TACROLIMUS LEVEL(Performed 04/10/2016) Performed for S/P liver transplant, biliary anastomosis without stent or T-tube (HCC) * GGT(Performed 04/10/2016) Performed for S/P liver transplant, biliary anastomosis without stent or T-tube (HCC) * MAGNESIUM BLOOD(Performed 04/10/2016) Performed for S/P liver transplant, biliary anastomosis without stent or T-tube (HCC) * CBC W AUTO DIFFERENTIAL(Performed 04/10/2016) Performed for S/P liver transplant, biliary anastomosis without stent or T-tube (HCC) * BILIRUBIN DIRECT(Performed 04/10/2016) Performed for S/P liver transplant, biliary anastomosis without stent or T-tube (HCC) * COMPREHENSIVE METABOLIC PANEL(Performed 04/10/2016) Performed for S/P liver transplant, biliary anastomosis without stent or T-tube (HCC) * CYTOMEGALOVIRUS DNA RT-PCR QUANT(Performed 04/10/2016) Performed for S/P liver transplant, biliary anastomosis without stent or T-tube (HCC) * PT PTT PANEL(Performed 04/03/2016) Performed for S/P liver transplant, biliary anastomosis without stent or T-tube (HCC) * GGT(Performed 04/03/2016) Performed for S/P liver transplant (HCC) * COMPREHENSIVE METABOLIC PANEL(Performed 04/03/2016) Performed for S/P liver transplant (HCC) * MAGNESIUM BLOOD(Performed 04/03/2016) Performed for S/P liver transplant (HCC) * TACROLIMUS LEVEL(Performed 04/03/2016) Performed for S/P liver transplant (HCC) * CBC W AUTO DIFFERENTIAL(Performed 04/03/2016) Performed for S/P liver transplant (HCC) * BILIRUBIN DIRECT(Performed 04/03/2016) Performed for S/P liver transplant (HCC) * GGT(Performed 01/03/2016) Performed for S/P liver transplant (HCC) * COMPREHENSIVE METABOLIC PANEL(Performed 01/03/2016) Performed for S/P liver transplant (HCC) * MAGNESIUM BLOOD(Performed 01/03/2016) Performed for S/P liver transplant (HCC) * TACROLIMUS LEVEL(Performed 01/03/2016) Performed for S/P liver transplant (HCC) * CBC W AUTO DIFFERENTIAL(Performed 01/03/2016) Performed for S/P liver transplant (HCC) * BILIRUBIN DIRECT(Performed 01/03/2016) Performed for S/P liver transplant (HCC) * GGT(Performed 10/04/2015) Performed for S/P liver transplant (HCC) * COMPREHENSIVE METABOLIC PANEL(Performed 10/04/2015) Performed for S/P liver transplant (HCC) * MAGNESIUM BLOOD(Performed 10/04/2015) Performed for S/P liver transplant (HCC) * TACROLIMUS LEVEL(Performed 10/04/2015) Performed for S/P liver transplant (HCC) * CBC W AUTO DIFFERENTIAL(Performed 10/04/2015) Performed for S/P liver transplant (HCC) * BILIRUBIN DIRECT(Performed 10/04/2015) Performed for S/P liver transplant (HCC) * XR FOOT LEFT 3VW OR MORE(Performed 07/21/2015) Performed for Foot laceration, left, initial encounter * XR ANKLE LEFT 3VW OR MORE(Performed 07/21/2015) Performed for Foot laceration, left, initial encounter * GGT(Performed 07/12/2015) Performed for S/P liver transplant (HCC) * COMPREHENSIVE METABOLIC PANEL(Performed 07/12/2015) Performed for S/P liver transplant (HCC) * MAGNESIUM BLOOD(Performed 07/12/2015) Performed for S/P liver transplant (HCC) * TACROLIMUS LEVEL(Performed 07/12/2015) Performed for S/P liver transplant (HCC) * CBC W AUTO DIFFERENTIAL(Performed 07/12/2015) Performed for S/P liver transplant (HCC) * BILIRUBIN DIRECT(Performed 07/12/2015) Performed for S/P liver transplant (HCC) * GGT(Performed 06/14/2015) Performed for S/P liver transplant (HCC) * COMPREHENSIVE METABOLIC PANEL(Performed 06/14/2015) Performed for S/P liver transplant (HCC) * MAGNESIUM BLOOD(Performed 06/14/2015) Performed for S/P liver transplant (HCC) * TACROLIMUS LEVEL(Performed 06/14/2015) Performed for S/P liver transplant (HCC) * CBC W AUTO DIFFERENTIAL(Performed 06/14/2015) Performed for S/P liver transplant (HCC) * BILIRUBIN DIRECT(Performed 06/14/2015) Performed for S/P liver transplant (HCC) * BETTINA-MEDRANO VIRUS PCR QUALITATIVE(Performed 06/14/2015) Performed for S/P liver transplant, biliary anastomosis without stent or T-tube (HCC) * PEDIATRIC DIAGNOSTIC POLYSOMNOGRAM(Performed 05/25/2015) Performed for Nocturia, Frequent headaches * MAGNESIUM BLOOD(Performed 05/24/2015) Performed for S/P liver transplant, biliary anastomosis without stent or T-tube (HCC) * BILIRUBIN DIRECT(Performed 05/24/2015) Performed for S/P liver transplant, biliary anastomosis without stent or T-tube (HCC) * CBC W AUTO DIFFERENTIAL(Performed 05/24/2015) Performed for S/P liver transplant, biliary anastomosis without stent or T-tube (HCC) * GGT(Performed 05/24/2015) Performed for S/P liver transplant, biliary anastomosis without stent or T-tube (HCC) * COMPREHENSIVE METABOLIC PANEL(Performed 05/24/2015) Performed for S/P liver transplant, biliary anastomosis without stent or T-tube (HCC) * CYTOMEGALOVIRUS DNA RT-PCR QUANT(Performed 05/24/2015) Performed for S/P liver transplant, biliary anastomosis without stent or T-tube (HCC) * TACROLIMUS LEVEL(Performed 05/24/2015) Performed for S/P liver transplant, biliary anastomosis without stent or T-tube (HCC) * BETTINA-MEDRANO VIRUS PCR QUANTITATIVE WHOLE BLOOD(Performed 05/24/2015) Performed for S/P liver transplant, biliary anastomosis without stent or T-tube (HCC) * MRI BRAIN WWO CONTRAST(Performed 05/14/2015) Performed for Migraine without aura * VITAMIN D 25-HYDROXY(Performed 04/26/2015) Performed for Restless legs syndrome (RLS) * IRON + TRANSFERRIN PANEL(Performed 04/26/2015) Performed for Restless legs syndrome (RLS) * FERRITIN(Performed 04/26/2015) Performed for Restless legs syndrome (RLS) * US ABDOMEN LTD W COMP DOPPLER(Performed 02/27/2015) Performed for S/P liver transplant, biliary anastomosis without stent or T-tube (HCC) * CYTOMEGALOVIRUS DNA RT-PCR QUANT(Performed 02/27/2015) Performed for S/P liver transplant, biliary anastomosis without stent or T-tube (HCC) * BETTINA-MEDRANO VIRUS PCR QUANTITATIVE WHOLE BLOOD(Performed 02/27/2015) Performed for S/P liver transplant, biliary anastomosis without stent or T-tube (HCC) * MAGNESIUM BLOOD(Performed 02/27/2015) Performed for S/P liver transplant, biliary anastomosis without stent or T-tube (HCC) * TACROLIMUS LEVEL(Performed 02/27/2015) Performed for S/P liver transplant, biliary anastomosis without stent or T-tube (HCC) * BILIRUBIN DIRECT(Performed 02/27/2015) Performed for S/P liver transplant, biliary anastomosis without stent or T-tube (HCC) * CBC W AUTO DIFFERENTIAL(Performed 02/27/2015) Performed for S/P liver transplant, biliary anastomosis without stent or T-tube (HCC) * GGT(Performed 02/27/2015) Performed for S/P liver transplant, biliary anastomosis without stent or T-tube (HCC) * COMPREHENSIVE METABOLIC PANEL(Performed 02/27/2015) Performed for S/P liver transplant, biliary anastomosis without stent or T-tube (HCC) * IRON + TIBC PANEL(Performed 01/18/2015) Performed for Restless sleeper * FERRITIN(Performed 01/18/2015) Performed for Restless sleeper * US ABDOMEN LTD W COMP DOPPLER(Performed 11/30/2014) Performed for S/P liver transplant, biliary anastomosis without stent or T-tube (HCC) * CYTOMEGALOVIRUS DNA RT-PCR QUANT(Performed 11/23/2014) Performed for S/P liver transplant (HCC) * BETTINA-MEDRANO VIRUS PCR QUANTITATIVE WHOLE BLOOD(Performed 11/23/2014) Performed for S/P liver transplant (HCC) * GLUCOSE(Performed 11/23/2014) Performed for S/P liver transplant (HCC) * LYTES (NA K CL CO2) BLOOD(Performed 11/23/2014) Performed for S/P liver transplant (HCC) * CREATININE BLOOD(Performed 11/23/2014) Performed for S/P liver transplant (HCC) * BUN(Performed 11/23/2014) Performed for S/P liver transplant (HCC) * MAGNESIUM BLOOD(Performed 11/23/2014) Performed for S/P liver transplant (HCC) * TACROLIMUS LEVEL(Performed 11/23/2014) Performed for S/P liver transplant (HCC) * GGT(Performed 11/23/2014) Performed for S/P liver transplant (HCC) * CBC W AUTO DIFFERENTIAL(Performed 11/23/2014) Performed for S/P liver transplant (HCC) * HEPATIC FUNCTION PANEL(Performed 11/23/2014) Performed for S/P liver transplant (HCC) * CYTOMEGALOVIRUS DNA RT-PCR QUANT(Performed 09/05/2014) Performed for S/P liver transplant (HCC) * BETTINA-MEDRANO VIRUS PCR QUANTITATIVE WHOLE BLOOD(Performed 09/05/2014) Performed for S/P liver transplant (HCC) * GLUCOSE(Performed 09/05/2014) Performed for S/P liver transplant (HCC) * LYTES (NA K CL CO2) BLOOD(Performed 09/05/2014) Performed for S/P liver transplant (HCC) * CREATININE BLOOD(Performed 09/05/2014) Performed for S/P liver transplant (HCC) * BUN(Performed 09/05/2014) Performed for S/P liver transplant (HCC) * MAGNESIUM BLOOD(Performed 09/05/2014) Performed for S/P liver transplant (HCC) * TACROLIMUS LEVEL(Performed 09/05/2014) Performed for S/P liver transplant (HCC) * GGT(Performed 09/05/2014) Performed for S/P liver transplant (HCC) * CBC W AUTO DIFFERENTIAL(Performed 09/05/2014) Performed for S/P liver transplant (HCC) * HEPATIC FUNCTION PANEL(Performed 09/05/2014) Performed for S/P liver transplant (HCC) * CYTOMEGALOVIRUS DNA RT-PCR QUANT(Performed 06/08/2014) Performed for S/P liver transplant (HCC) * BETTINA-MEDRANO VIRUS PCR QUANTITATIVE WHOLE BLOOD(Performed 06/08/2014) Performed for S/P liver transplant (HCC) * GLUCOSE(Performed 06/08/2014) Performed for S/P liver transplant (HCC) * LYTES (NA K CL CO2) BLOOD(Performed 06/08/2014) Performed for S/P liver transplant (HCC) * CREATININE BLOOD(Performed 06/08/2014) Performed for S/P liver transplant (HCC) * BUN(Performed 06/08/2014) Performed for S/P liver transplant (HCC) * MAGNESIUM BLOOD(Performed 06/08/2014) Performed for S/P liver transplant (HCC) * TACROLIMUS LEVEL(Performed 06/08/2014) Performed for S/P liver transplant (HCC) * GGT(Performed 06/08/2014) Performed for S/P liver transplant (HCC) * CBC W AUTO DIFFERENTIAL(Performed 06/08/2014) Performed for S/P liver transplant (HCC) * HEPATIC FUNCTION PANEL(Performed 06/08/2014) Performed for S/P liver transplant (HCC) * US ABDOMEN COMP W COMP DOPPLER(Performed 05/04/2014) Performed for Abdominal Pain, Left Upper Quadrant * CYTOMEGALOVIRUS DNA RT-PCR QUANT(Performed 04/03/2014) Performed for S/P liver transplant (HCC) * BETTINA-MEDRANO VIRUS PCR QUANTITATIVE WHOLE BLOOD(Performed 04/03/2014) Performed for S/P liver transplant (HCC) * GLUCOSE(Performed 04/03/2014) Performed for S/P liver transplant (HCC) * LYTES (NA K CL CO2) BLOOD(Performed 04/03/2014) Performed for S/P liver transplant (HCC) * CREATININE BLOOD(Performed 04/03/2014) Performed for S/P liver transplant (HCC) * BUN(Performed 04/03/2014) Performed for S/P liver transplant (HCC) * MAGNESIUM BLOOD(Performed 04/03/2014) Performed for S/P liver transplant (HCC) * TACROLIMUS LEVEL(Performed 04/03/2014) Performed for S/P liver transplant (HCC) * GGT(Performed 04/03/2014) Performed for S/P liver transplant (HCC) * CBC W AUTO DIFFERENTIAL(Performed 04/03/2014) Performed for S/P liver transplant (HCC) * HEPATIC FUNCTION PANEL(Performed 04/03/2014) Performed for S/P liver transplant (HCC) * ESOPHAGOGASTRODUODENOSCOPY (EGD) BIOPSY(Performed 03/07/2014) Performed for Abdominal pain * HELICOBACTER PYLORI UREASE (STL)(Performed 03/07/2014) Performed for HCC (hepatocellular carcinoma) (HCC) * PATHOLOGY TISSUE EXAM (STL)(Performed 03/07/2014) * HCG URINE QUALITATIVE - POCT (IP) BEAKER(Performed 03/07/2014) * EGD(Performed 03/07/2014) * CYTOMEGALOVIRUS DNA RT-PCR QUANT(Performed 02/09/2014) Performed for S/P liver transplant (HCC) * BETTINA-MEDRANO VIRUS PCR QUANTITATIVE WHOLE BLOOD(Performed 02/09/2014) Performed for S/P liver transplant (HCC) * GLUCOSE(Performed 02/09/2014) Performed for S/P liver transplant (HCC) * LYTES (NA K CL CO2) BLOOD(Performed 02/09/2014) Performed for S/P liver transplant (HCC) * CREATININE BLOOD(Performed 02/09/2014) Performed for S/P liver transplant (HCC) * BUN(Performed 02/09/2014) Performed for S/P liver transplant (HCC) * MAGNESIUM BLOOD(Performed 02/09/2014) Performed for S/P liver transplant (HCC) * TACROLIMUS LEVEL(Performed 02/09/2014) Performed for S/P liver transplant (HCC) * GGT(Performed 02/09/2014) Performed for S/P liver transplant (HCC) * CBC W AUTO DIFFERENTIAL(Performed 02/09/2014) Performed for S/P liver transplant (HCC) * HEPATIC FUNCTION PANEL(Performed 02/09/2014) Performed for S/P liver transplant (HCC) * CYTOMEGALOVIRUS DNA RT-PCR QUANT(Performed 01/09/2014) Performed for S/P liver transplant (HCC) * BETTINA-MEDRANO VIRUS PCR QUANTITATIVE WHOLE BLOOD(Performed 01/09/2014) Performed for S/P liver transplant (HCC) * GLUCOSE(Performed 01/09/2014) Performed for S/P liver transplant (HCC) * LYTES (NA K CL CO2) BLOOD(Performed 01/09/2014) Performed for S/P liver transplant (HCC) * CREATININE BLOOD(Performed 01/09/2014) Performed for S/P liver transplant (HCC) * BUN(Performed 01/09/2014) Performed for S/P liver transplant (HCC) * MAGNESIUM BLOOD(Performed 01/09/2014) Performed for S/P liver transplant (HCC) * TACROLIMUS LEVEL(Performed 01/09/2014) Performed for S/P liver transplant (HCC) * GGT(Performed 01/09/2014) Performed for S/P liver transplant (HCC) * CBC W AUTO DIFFERENTIAL(Performed 01/09/2014) Performed for S/P liver transplant (HCC) * HEPATIC FUNCTION PANEL(Performed 01/09/2014) Performed for S/P liver transplant (HCC) * US ABDOMEN LTD W COMP DOPPLER(Performed 12/15/2013) Performed for S/P liver transplant, biliary anastomosis without stent or T-tube (HCC) * HEPATIC FUNCTION PANEL(Performed 12/15/2013) Performed for S/P liver transplant, biliary anastomosis without stent or T-tube (HCC) * BETTINA-MEDRANO VIRUS PCR QUANTITATIVE WHOLE BLOOD(Performed 12/15/2013) Performed for S/P liver transplant, biliary anastomosis without stent or T-tube (HCC) * CREATININE BLOOD(Performed 12/15/2013) Performed for S/P liver transplant, biliary anastomosis without stent or T-tube (HCC) * BUN(Performed 12/15/2013) Performed for S/P liver transplant, biliary anastomosis without stent or T-tube (HCC) * TACROLIMUS LEVEL(Performed 12/15/2013) Performed for S/P liver transplant, biliary anastomosis without stent or T-tube (HCC) * MAGNESIUM BLOOD(Performed 12/15/2013) Performed for S/P liver transplant, biliary anastomosis without stent or T-tube (HCC) * GLUCOSE(Performed 12/15/2013) Performed for S/P liver transplant, biliary anastomosis without stent or T-tube (HCC) * LYTES (NA K CL CO2) BLOOD(Performed 12/15/2013) Performed for S/P liver transplant, biliary anastomosis without stent or T-tube (HCC) * GGT(Performed 12/15/2013) Performed for S/P liver transplant, biliary anastomosis without stent or T-tube (HCC) * CBC W AUTO DIFFERENTIAL(Performed 12/15/2013) Performed for S/P liver transplant, biliary anastomosis without stent or T-tube (HCC) * CREATININE BLOOD(Performed 11/17/2013) Performed for S/P liver transplant, biliary anastomosis without stent or T-tube (HCC) * BUN(Performed 11/17/2013) Performed for S/P liver transplant, biliary anastomosis without stent or T-tube (HCC) * TACROLIMUS LEVEL(Performed 11/17/2013) Performed for S/P liver transplant, biliary anastomosis without stent or T-tube (HCC) * MAGNESIUM BLOOD(Performed 11/17/2013) Performed for S/P liver transplant, biliary anastomosis without stent or T-tube (HCC) * GLUCOSE(Performed 11/17/2013) Performed for S/P liver transplant, biliary anastomosis without stent or T-tube (HCC) * LYTES (NA K CL CO2) BLOOD(Performed 11/17/2013) Performed for S/P liver transplant, biliary anastomosis without stent or T-tube (HCC) * GGT(Performed 11/17/2013) Performed for S/P liver transplant, biliary anastomosis without stent or T-tube (HCC) * CBC W AUTO DIFFERENTIAL(Performed 11/17/2013) Performed for S/P liver transplant, biliary anastomosis without stent or T-tube (HCC) * HEPATIC FUNCTION PANEL(Performed 11/17/2013) Performed for S/P liver transplant, biliary anastomosis without stent or T-tube (HCC) * C-REACTIVE PROTEIN(Performed 11/07/2013) * PT PTT PANEL(Performed 11/07/2013) * US ABDOMEN LTD W COMP DOPPLER(Performed 11/07/2013) Performed for Abdominal pain, generalized * XR ABD OBSTRUCTION SERIES 2VW(Performed 11/07/2013) Performed for Abdominal pain, generalized * DIFFERENTIAL MANUAL(Performed 11/07/2013) * CBC W AUTO DIFFERENTIAL(Performed 11/07/2013) * COMPREHENSIVE METABOLIC PANEL(Performed 11/07/2013) * HCG URINE QUALITATIVE - POCT (IP) BEAKER(Performed 11/07/2013) * URINE MICROSCOPIC ONLY(Performed 11/07/2013) * URINALYSIS REFLEX TO MICROSCOPIC NO CULTURE(Performed 11/07/2013) * CHLAMYDIA + GC AMPLIFIED PROBE(Performed 11/07/2013) * CULTURE URINE(Performed 11/07/2013) * PROCEDURE NOT LISTED(Performed 10/31/2013) Performed for Liver transplant complication (HCC) * IR VISCERAL ANGIO(Performed 10/31/2013) Performed for Liver transplanted (HCC) * HCG URINE QUALITATIVE - POCT (IP) BEAKER(Performed 10/31/2013) * BETTINA-MEDRANO VIRUS PCR QUANTITATIVE WHOLE BLOOD(Performed 10/04/2013) Performed for S/P liver transplant (HCC) * CYTOMEGALOVIRUS DNA RT-PCR QUANT(Performed 10/04/2013) Performed for S/P liver transplant (HCC) * CREATININE BLOOD(Performed 10/04/2013) Performed for S/P liver transplant, biliary anastomosis without stent or T-tube (HCC) * BUN(Performed 10/04/2013) Performed for S/P liver transplant, biliary anastomosis without stent or T-tube (HCC) * TACROLIMUS LEVEL(Performed 10/04/2013) Performed for S/P liver transplant, biliary anastomosis without stent or T-tube (HCC) * MAGNESIUM BLOOD(Performed 10/04/2013) Performed for S/P liver transplant, biliary anastomosis without stent or T-tube (HCC) * GLUCOSE(Performed 10/04/2013) Performed for S/P liver transplant, biliary anastomosis without stent or T-tube (HCC) * LYTES (NA K CL CO2) BLOOD(Performed 10/04/2013) Performed for S/P liver transplant, biliary anastomosis without stent or T-tube (HCC) * GGT(Performed 10/04/2013) Performed for S/P liver transplant, biliary anastomosis without stent or T-tube (HCC) * CBC W AUTO DIFFERENTIAL(Performed 10/04/2013) Performed for S/P liver transplant, biliary anastomosis without stent or T-tube (HCC) * HEPATIC FUNCTION PANEL(Performed 10/04/2013) Performed for S/P liver transplant, biliary anastomosis without stent or T-tube (HCC) * NEEDLE BIOPSY, LIVER(Performed 09/18/2013) Performed for Liver replaced by transplant (HCC) * HEPATIC FUNCTION PANEL(Performed 09/18/2013) Performed for S/P liver transplant, biliary anastomosis without stent or T-tube (HCC) * US ABDOMEN LTD W COMP DOPPLER(Performed 09/15/2013) Performed for S/P liver transplant, biliary anastomosis without stent or T-tube (HCC) * CREATININE BLOOD(Performed 09/15/2013) Performed for S/P liver transplant, biliary anastomosis without stent or T-tube (HCC) * BUN(Performed 09/15/2013) Performed for S/P liver transplant, biliary anastomosis without stent or T-tube (HCC) * TACROLIMUS LEVEL(Performed 09/15/2013) Performed for S/P liver transplant, biliary anastomosis without stent or T-tube (HCC) * MAGNESIUM BLOOD(Performed 09/15/2013) Performed for S/P liver transplant, biliary anastomosis without stent or T-tube (HCC) * GLUCOSE(Performed 09/15/2013) Performed for S/P liver transplant, biliary anastomosis without stent or T-tube (HCC) * LYTES (NA K CL CO2) BLOOD(Performed 09/15/2013) Performed for S/P liver transplant, biliary anastomosis without stent or T-tube (HCC) * GGT(Performed 09/15/2013) Performed for S/P liver transplant, biliary anastomosis without stent or T-tube (HCC) * CBC W AUTO DIFFERENTIAL(Performed 09/15/2013) Performed for S/P liver transplant, biliary anastomosis without stent or T-tube (HCC) * HEPATIC FUNCTION PANEL(Performed 09/15/2013) Performed for S/P liver transplant, biliary anastomosis without stent or T-tube (HCC) * CREATININE BLOOD(Performed 09/13/2013) Performed for S/P liver transplant, biliary anastomosis without stent or T-tube (HCC) * BUN(Performed 09/13/2013) Performed for S/P liver transplant, biliary anastomosis without stent or T-tube (HCC) * TACROLIMUS LEVEL(Performed 09/13/2013) Performed for S/P liver transplant, biliary anastomosis without stent or T-tube (HCC) * MAGNESIUM BLOOD(Performed 09/13/2013) Performed for S/P liver transplant, biliary anastomosis without stent or T-tube (HCC) * GLUCOSE(Performed 09/13/2013) Performed for S/P liver transplant, biliary anastomosis without stent or T-tube (HCC) * LYTES (NA K CL CO2) BLOOD(Performed 09/13/2013) Performed for S/P liver transplant, biliary anastomosis without stent or T-tube (HCC) * GGT(Performed 09/13/2013) Performed for S/P liver transplant, biliary anastomosis without stent or T-tube (HCC) * CBC W AUTO DIFFERENTIAL(Performed 09/13/2013) Performed for S/P liver transplant, biliary anastomosis without stent or T-tube (HCC) * HEPATIC FUNCTION PANEL(Performed 09/13/2013) Performed for S/P liver transplant, biliary anastomosis without stent or T-tube (HCC) * CREATININE BLOOD(Performed 09/05/2013) Performed for S/P liver transplant, biliary anastomosis without stent or T-tube (HCC) * BUN(Performed 09/05/2013) Performed for S/P liver transplant, biliary anastomosis without stent or T-tube (HCC) * TACROLIMUS LEVEL(Performed 09/05/2013) Performed for S/P liver transplant, biliary anastomosis without stent or T-tube (HCC) * MAGNESIUM BLOOD(Performed 09/05/2013) Performed for S/P liver transplant, biliary anastomosis without stent or T-tube (HCC) * GLUCOSE(Performed 09/05/2013) Performed for S/P liver transplant, biliary anastomosis without stent or T-tube (HCC) * LYTES (NA K CL CO2) BLOOD(Performed 09/05/2013) Performed for S/P liver transplant, biliary anastomosis without stent or T-tube (HCC) * GGT(Performed 09/05/2013) Performed for S/P liver transplant, biliary anastomosis without stent or T-tube (HCC) * CBC W AUTO DIFFERENTIAL(Performed 09/05/2013) Performed for S/P liver transplant, biliary anastomosis without stent or T-tube (HCC) * HEPATIC FUNCTION PANEL(Performed 09/05/2013) Performed for S/P liver transplant, biliary anastomosis without stent or T-tube (HCC) * CT ABDOMEN PELVIS W CONTRAST(Performed 08/30/2013) Performed for S/P liver transplant (HCC) * TACROLIMUS LEVEL(Performed 08/30/2013) Performed for S/P liver transplant, biliary anastomosis without stent or T-tube (HCC) * MAGNESIUM BLOOD(Performed 08/30/2013) Performed for S/P liver transplant, biliary anastomosis without stent or T-tube (HCC) * LYTES (NA K CL CO2) BLOOD(Performed 08/30/2013) Performed for S/P liver transplant, biliary anastomosis without stent or T-tube (HCC) * HEPATIC FUNCTION PANEL(Performed 08/30/2013) Performed for S/P liver transplant, biliary anastomosis without stent or T-tube (HCC) * GLUCOSE(Performed 08/30/2013) Performed for S/P liver transplant, biliary anastomosis without stent or T-tube (HCC) * GGT(Performed 08/30/2013) Performed for S/P liver transplant, biliary anastomosis without stent or T-tube (HCC) * CREATININE BLOOD(Performed 08/30/2013) Performed for S/P liver transplant, biliary anastomosis without stent or T-tube (HCC) * CBC W AUTO DIFFERENTIAL(Performed 08/30/2013) Performed for S/P liver transplant, biliary anastomosis without stent or T-tube (HCC) * BUN(Performed 08/30/2013) Performed for S/P liver transplant, biliary anastomosis without stent or T-tube (HCC) * CREATININE BLOOD(Performed 08/25/2013) Performed for S/P liver transplant, biliary anastomosis without stent or T-tube (HCC) * BUN(Performed 08/25/2013) Performed for S/P liver transplant, biliary anastomosis without stent or T-tube (HCC) * TACROLIMUS LEVEL(Performed 08/25/2013) Performed for S/P liver transplant, biliary anastomosis without stent or T-tube (HCC) * MAGNESIUM BLOOD(Performed 08/25/2013) Performed for S/P liver transplant, biliary anastomosis without stent or T-tube (HCC) * GLUCOSE(Performed 08/25/2013) Performed for S/P liver transplant, biliary anastomosis without stent or T-tube (HCC) * LYTES (NA K CL CO2) BLOOD(Performed 08/25/2013) Performed for S/P liver transplant, biliary anastomosis without stent or T-tube (HCC) * GGT(Performed 08/25/2013) Performed for S/P liver transplant, biliary anastomosis without stent or T-tube (HCC) * CBC W AUTO DIFFERENTIAL(Performed 08/25/2013) Performed for S/P liver transplant, biliary anastomosis without stent or T-tube (HCC) * HEPATIC FUNCTION PANEL(Performed 08/25/2013) Performed for S/P liver transplant, biliary anastomosis without stent or T-tube (HCC) * CYTOMEGALOVIRUS DNA RT-PCR QUANT(Performed 08/17/2013) Performed for S/P liver transplant, biliary anastomosis without stent or T-tube (HCC) * BETTINA-MEDRANO VIRUS PCR QUANTITATIVE WHOLE BLOOD(Performed 08/17/2013) Performed for S/P liver transplant, biliary anastomosis without stent or T-tube (HCC) * GLUCOSE(Performed 08/17/2013) Performed for S/P liver transplant, biliary anastomosis without stent or T-tube (HCC) * GGT(Performed 08/17/2013) Performed for S/P liver transplant, biliary anastomosis without stent or T-tube (HCC) * TACROLIMUS LEVEL(Performed 08/17/2013) Performed for S/P liver transplant, biliary anastomosis without stent or T-tube (HCC) * CBC W AUTO DIFFERENTIAL(Performed 08/17/2013) Performed for S/P liver transplant, biliary anastomosis without stent or T-tube (HCC) * MAGNESIUM BLOOD(Performed 08/17/2013) Performed for S/P liver transplant, biliary anastomosis without stent or T-tube (HCC) * CREATININE BLOOD(Performed 08/17/2013) Performed for S/P liver transplant, biliary anastomosis without stent or T-tube (HCC) * BUN(Performed 08/17/2013) Performed for S/P liver transplant, biliary anastomosis without stent or T-tube (HCC) * LYTES (NA K CL CO2) BLOOD(Performed 08/17/2013) Performed for S/P liver transplant, biliary anastomosis without stent or T-tube (HCC) * HEPATIC FUNCTION PANEL(Performed 08/17/2013) Performed for S/P liver transplant, biliary anastomosis without stent or T-tube (HCC) * PATHOLOGY/CYTOLOGY REPORT ORDER(Performed 08/09/2013) * GGT(Performed 08/07/2013) Performed for S/P liver transplant, biliary anastomosis without stent or T-tube (HCC) * CBC W AUTO DIFFERENTIAL(Performed 08/07/2013) Performed for S/P liver transplant, biliary anastomosis without stent or T-tube (HCC) * MAGNESIUM BLOOD(Performed 08/07/2013) Performed for S/P liver transplant, biliary anastomosis without stent or T-tube (HCC) * TACROLIMUS LEVEL(Performed 08/07/2013) Performed for S/P liver transplant, biliary anastomosis without stent or T-tube (HCC) * GLUCOSE(Performed 08/07/2013) Performed for S/P liver transplant, biliary anastomosis without stent or T-tube (HCC) * CREATININE BLOOD(Performed 08/07/2013) Performed for S/P liver transplant, biliary anastomosis without stent or T-tube (HCC) * BUN(Performed 08/07/2013) Performed for S/P liver transplant, biliary anastomosis without stent or T-tube (HCC) * LYTES (NA K CL CO2) BLOOD(Performed 08/07/2013) Performed for S/P liver transplant, biliary anastomosis without stent or T-tube (HCC) * HEPATIC FUNCTION PANEL(Performed 08/07/2013) Performed for S/P liver transplant, biliary anastomosis without stent or T-tube (HCC) * US ABDOMEN LTD W COMP DOPPLER(Performed 06/30/2013) Performed for S/P liver transplant (HCC) * GGT(Performed 06/30/2013) Performed for S/P liver transplant, biliary anastomosis without stent or T-tube (HCC) * CBC W AUTO DIFFERENTIAL(Performed 06/30/2013) Performed for S/P liver transplant, biliary anastomosis without stent or T-tube (HCC) * MAGNESIUM BLOOD(Performed 06/30/2013) Performed for S/P liver transplant, biliary anastomosis without stent or T-tube (HCC) * TACROLIMUS LEVEL(Performed 06/30/2013) Performed for S/P liver transplant, biliary anastomosis without stent or T-tube (HCC) * GLUCOSE(Performed 06/30/2013) Performed for S/P liver transplant, biliary anastomosis without stent or T-tube (HCC) * CREATININE BLOOD(Performed 06/30/2013) Performed for S/P liver transplant, biliary anastomosis without stent or T-tube (HCC) * BUN(Performed 06/30/2013) Performed for S/P liver transplant, biliary anastomosis without stent or T-tube (HCC) * LYTES (NA K CL CO2) BLOOD(Performed 06/30/2013) Performed for S/P liver transplant, biliary anastomosis without stent or T-tube (HCC) * HEPATIC FUNCTION PANEL(Performed 06/30/2013) Performed for S/P liver transplant, biliary anastomosis without stent or T-tube (HCC) * CYTOMEGALOVIRUS DNA RT-PCR QUANT(Performed 06/30/2013) Performed for S/P liver transplant, biliary anastomosis without stent or T-tube (HCC) * BETTINA-MEDRANO VIRUS PCR QUANTITATIVE WHOLE BLOOD(Performed 06/30/2013) Performed for S/P liver transplant, biliary anastomosis without stent or T-tube (HCC) * VITAMIN D 25-HYDROXY(Performed 06/30/2013) Performed for S/P liver transplant, biliary anastomosis without stent or T-tube (HCC) * CYTOMEGALOVIRUS DNA RT-PCR QUANT(Performed 06/07/2013) Performed for S/P liver transplant, biliary anastomosis without stent or T-tube (HCC) * BETTINA-MEDRANO VIRUS PCR QUANTITATIVE WHOLE BLOOD(Performed 06/07/2013) Performed for S/P liver transplant, biliary anastomosis without stent or T-tube (HCC) * GGT(Performed 06/07/2013) Performed for S/P liver transplant, biliary anastomosis without stent or T-tube (HCC) * CBC W AUTO DIFFERENTIAL(Performed 06/07/2013) Performed for S/P liver transplant, biliary anastomosis without stent or T-tube (HCC) * MAGNESIUM BLOOD(Performed 06/07/2013) Performed for S/P liver transplant, biliary anastomosis without stent or T-tube (HCC) * TACROLIMUS LEVEL(Performed 06/07/2013) Performed for S/P liver transplant, biliary anastomosis without stent or T-tube (HCC) * GLUCOSE(Performed 06/07/2013) Performed for S/P liver transplant, biliary anastomosis without stent or T-tube (HCC) * CREATININE BLOOD(Performed 06/07/2013) Performed for S/P liver transplant, biliary anastomosis without stent or T-tube (HCC) * BUN(Performed 06/07/2013) Performed for S/P liver transplant, biliary anastomosis without stent or T-tube (HCC) * LYTES (NA K CL CO2) BLOOD(Performed 06/07/2013) Performed for S/P liver transplant, biliary anastomosis without stent or T-tube (HCC) * HEPATIC FUNCTION PANEL(Performed 06/07/2013) Performed for S/P liver transplant, biliary anastomosis without stent or T-tube (HCC) * DIFFERENTIAL MANUAL(Performed 05/19/2013) Performed for S/P liver transplant, biliary anastomosis without stent or T-tube (HCC) * GGT(Performed 05/19/2013) Performed for S/P liver transplant, biliary anastomosis without stent or T-tube (HCC) * CBC W AUTO DIFFERENTIAL(Performed 05/19/2013) Performed for S/P liver transplant, biliary anastomosis without stent or T-tube (HCC) * MAGNESIUM BLOOD(Performed 05/19/2013) Performed for S/P liver transplant, biliary anastomosis without stent or T-tube (HCC) * TACROLIMUS LEVEL(Performed 05/19/2013) Performed for S/P liver transplant, biliary anastomosis without stent or T-tube (HCC) * GLUCOSE(Performed 05/19/2013) Performed for S/P liver transplant, biliary anastomosis without stent or T-tube (HCC) * CREATININE BLOOD(Performed 05/19/2013) Performed for S/P liver transplant, biliary anastomosis without stent or T-tube (HCC) * BUN(Performed 05/19/2013) Performed for S/P liver transplant, biliary anastomosis without stent or T-tube (HCC) * LYTES (NA K CL CO2) BLOOD(Performed 05/19/2013) Performed for S/P liver transplant, biliary anastomosis without stent or T-tube (HCC) * HEPATIC FUNCTION PANEL(Performed 05/19/2013) Performed for S/P liver transplant, biliary anastomosis without stent or T-tube (HCC) * MAGNESIUM BLOOD(Performed 05/10/2013) Performed for S/P liver transplant, biliary anastomosis without stent or T-tube (HCC) * GLUCOSE(Performed 05/10/2013) Performed for S/P liver transplant, biliary anastomosis without stent or T-tube (HCC) * CREATININE BLOOD(Performed 05/10/2013) Performed for S/P liver transplant, biliary anastomosis without stent or T-tube (HCC) * BUN(Performed 05/10/2013) Performed for S/P liver transplant, biliary anastomosis without stent or T-tube (HCC) * LYTES (NA K CL CO2) BLOOD(Performed 05/10/2013) Performed for S/P liver transplant, biliary anastomosis without stent or T-tube (HCC) * HEPATIC FUNCTION PANEL(Performed 05/10/2013) Performed for S/P liver transplant, biliary anastomosis without stent or T-tube (HCC) * GGT(Performed 05/10/2013) Performed for S/P liver transplant, biliary anastomosis without stent or T-tube (HCC) * BETTINA-MEDRANO VIRUS PCR QUANTITATIVE WHOLE BLOOD(Performed 05/10/2013) Performed for S/P liver transplant, biliary anastomosis without stent or T-tube (HCC) * DIFFERENTIAL MANUAL(Performed 05/10/2013) Performed for S/P liver transplant, biliary anastomosis without stent or T-tube (HCC) * CBC W AUTO DIFFERENTIAL(Performed 05/10/2013) Performed for S/P liver transplant, biliary anastomosis without stent or T-tube (HCC) * TACROLIMUS LEVEL(Performed 05/10/2013) Performed for S/P liver transplant, biliary anastomosis without stent or T-tube (HCC) * DIFFERENTIAL MANUAL(Performed 05/05/2013) Performed for S/P liver transplant, biliary anastomosis without stent or T-tube (HCC) * GGT(Performed 05/05/2013) Performed for S/P liver transplant, biliary anastomosis without stent or T-tube (HCC) * CBC W AUTO DIFFERENTIAL(Performed 05/05/2013) Performed for S/P liver transplant, biliary anastomosis without stent or T-tube (HCC) * MAGNESIUM BLOOD(Performed 05/05/2013) Performed for S/P liver transplant, biliary anastomosis without stent or T-tube (HCC) * TACROLIMUS LEVEL(Performed 05/05/2013) Performed for S/P liver transplant, biliary anastomosis without stent or T-tube (HCC) * GLUCOSE(Performed 05/05/2013) Performed for S/P liver transplant, biliary anastomosis without stent or T-tube (HCC) * CREATININE BLOOD(Performed 05/05/2013) Performed for S/P liver transplant, biliary anastomosis without stent or T-tube (HCC) * BUN(Performed 05/05/2013) Performed for S/P liver transplant, biliary anastomosis without stent or T-tube (HCC) * LYTES (NA K CL CO2) BLOOD(Performed 05/05/2013) Performed for S/P liver transplant, biliary anastomosis without stent or T-tube (HCC) * HEPATIC FUNCTION PANEL(Performed 05/05/2013) Performed for S/P liver transplant, biliary anastomosis without stent or T-tube (HCC) * DIFFERENTIAL MANUAL(Performed 04/28/2013) Performed for S/P liver transplant, biliary anastomosis without stent or T-tube (HCC) * GGT(Performed 04/28/2013) Performed for S/P liver transplant, biliary anastomosis without stent or T-tube (HCC) * CBC W AUTO DIFFERENTIAL(Performed 04/28/2013) Performed for S/P liver transplant, biliary anastomosis without stent or T-tube (HCC) * MAGNESIUM BLOOD(Performed 04/28/2013) Performed for S/P liver transplant, biliary anastomosis without stent or T-tube (HCC) * TACROLIMUS LEVEL(Performed 04/28/2013) Performed for S/P liver transplant, biliary anastomosis without stent or T-tube (HCC) * GLUCOSE(Performed 04/28/2013) Performed for S/P liver transplant, biliary anastomosis without stent or T-tube (HCC) * CREATININE BLOOD(Performed 04/28/2013) Performed for S/P liver transplant, biliary anastomosis without stent or T-tube (HCC) * BUN(Performed 04/28/2013) Performed for S/P liver transplant, biliary anastomosis without stent or T-tube (HCC) * LYTES (NA K CL CO2) BLOOD(Performed 04/28/2013) Performed for S/P liver transplant, biliary anastomosis without stent or T-tube (HCC) * HEPATIC FUNCTION PANEL(Performed 04/28/2013) Performed for S/P liver transplant, biliary anastomosis without stent or T-tube (HCC) * DIFFERENTIAL MANUAL(Performed 04/25/2013) Performed for S/P liver transplant, biliary anastomosis without stent or T-tube (HCC) * GGT(Performed 04/25/2013) Performed for S/P liver transplant, biliary anastomosis without stent or T-tube (HCC) * CBC W AUTO DIFFERENTIAL(Performed 04/25/2013) Performed for S/P liver transplant, biliary anastomosis without stent or T-tube (HCC) * MAGNESIUM BLOOD(Performed 04/25/2013) Performed for S/P liver transplant, biliary anastomosis without stent or T-tube (HCC) * TACROLIMUS LEVEL(Performed 04/25/2013) Performed for S/P liver transplant, biliary anastomosis without stent or T-tube (HCC) * GLUCOSE(Performed 04/25/2013) Performed for S/P liver transplant, biliary anastomosis without stent or T-tube (HCC) * CREATININE BLOOD(Performed 04/25/2013) Performed for S/P liver transplant, biliary anastomosis without stent or T-tube (HCC) * BUN(Performed 04/25/2013) Performed for S/P liver transplant, biliary anastomosis without stent or T-tube (HCC) * LYTES (NA K CL CO2) BLOOD(Performed 04/25/2013) Performed for S/P liver transplant, biliary anastomosis without stent or T-tube (HCC) * HEPATIC FUNCTION PANEL(Performed 04/25/2013) Performed for S/P liver transplant, biliary anastomosis without stent or T-tube (HCC) * CYTOMEGALOVIRUS QUAL PCR(Performed 04/25/2013) Performed for S/P liver transplant, biliary anastomosis without stent or T-tube (HCC) * US ABDOMEN LTD W COMP DOPPLER(Performed 04/21/2013) Performed for S/P liver transplant, biliary anastomosis without stent or T-tube (HCC) * DIFFERENTIAL MANUAL(Performed 04/21/2013) Performed for S/P liver transplant, biliary anastomosis without stent or T-tube (HCC) * TACROLIMUS LEVEL(Performed 04/21/2013) Performed for S/P liver transplant, biliary anastomosis without stent or T-tube (HCC) * GGT(Performed 04/21/2013) Performed for S/P liver transplant, biliary anastomosis without stent or T-tube (HCC) * CBC W AUTO DIFFERENTIAL(Performed 04/21/2013) Performed for S/P liver transplant, biliary anastomosis without stent or T-tube (HCC) * COMPREHENSIVE METABOLIC PANEL(Performed 04/21/2013) Performed for S/P liver transplant, biliary anastomosis without stent or T-tube (HCC) * PT PTT PANEL(Performed 04/21/2013) Performed for S/P liver transplant, biliary anastomosis without stent or T-tube (HCC) * DIFFERENTIAL MANUAL(Performed 04/17/2013) Performed for Status post liver transplant (HCC) * GLUCOSE(Performed 04/17/2013) Performed for Status post liver transplant (HCC) * GGT(Performed 04/17/2013) Performed for Status post liver transplant (HCC) * CREATININE BLOOD(Performed 04/17/2013) Performed for Status post liver transplant (HCC) * BUN(Performed 04/17/2013) Performed for Status post liver transplant (HCC) * LYTES (NA K CL CO2) BLOOD(Performed 04/17/2013) Performed for Status post liver transplant (HCC) * MAGNESIUM BLOOD(Performed 04/17/2013) Performed for Status post liver transplant (HCC) * TACROLIMUS LEVEL(Performed 04/17/2013) Performed for Status post liver transplant (HCC) * CBC W AUTO DIFFERENTIAL(Performed 04/17/2013) Performed for Status post liver transplant (HCC) * HEPATIC FUNCTION PANEL(Performed 04/17/2013) Performed for Status post liver transplant (HCC) * DIFFERENTIAL MANUAL(Performed 04/13/2013) Performed for Status post liver transplant (HCC) * GLUCOSE(Performed 04/13/2013) Performed for Status post liver transplant (HCC) * GGT(Performed 04/13/2013) Performed for Status post liver transplant (HCC) * CREATININE BLOOD(Performed 04/13/2013) Performed for Status post liver transplant (HCC) * BUN(Performed 04/13/2013) Performed for Status post liver transplant (HCC) * LYTES (NA K CL CO2) BLOOD(Performed 04/13/2013) Performed for Status post liver transplant (HCC) * MAGNESIUM BLOOD(Performed 04/13/2013) Performed for Status post liver transplant (HCC) * TACROLIMUS LEVEL(Performed 04/13/2013) Performed for Status post liver transplant (HCC) * CBC W AUTO DIFFERENTIAL(Performed 04/13/2013) Performed for Status post liver transplant (HCC) * HEPATIC FUNCTION PANEL(Performed 04/13/2013) Performed for Status post liver transplant (HCC) * PATHOLOGY/CYTOLOGY REPORT ORDER(Performed 04/11/2013) * GLUCOSE - POINT OF CARE(Performed 04/10/2013) * DIFFERENTIAL MANUAL(Performed 04/10/2013) * GGT(Performed 04/10/2013) * TACROLIMUS LEVEL(Performed 04/10/2013) * MAGNESIUM BLOOD(Performed 04/10/2013) * HEPATIC FUNCTION PANEL(Performed 04/10/2013) * CBC W AUTO DIFFERENTIAL(Performed 04/10/2013) * GLUCOSE - POINT OF CARE(Performed 04/09/2013) * GGT(Performed 04/09/2013) * MAGNESIUM BLOOD(Performed 04/09/2013) * HEPATIC FUNCTION PANEL(Performed 04/09/2013) * TACROLIMUS LEVEL(Performed 04/09/2013) * DIFFERENTIAL MANUAL(Performed 04/09/2013) * CBC W AUTO DIFFERENTIAL(Performed 04/09/2013) * GLUCOSE - POINT OF CARE(Performed 04/08/2013) * GLUCOSE - POINT OF CARE(Performed 04/08/2013) * DIFFERENTIAL MANUAL(Performed 04/08/2013) * CBC W AUTO DIFFERENTIAL(Performed 04/08/2013) * HEPATIC FUNCTION PANEL(Performed 04/08/2013) * MAGNESIUM BLOOD(Performed 04/08/2013) * TACROLIMUS LEVEL(Performed 04/08/2013) * GGT(Performed 04/08/2013) * GLUCOSE - POINT OF CARE(Performed 04/07/2013) * DIFFERENTIAL MANUAL(Performed 04/07/2013) * TACROLIMUS LEVEL(Performed 04/07/2013) * CBC W AUTO DIFFERENTIAL(Performed 04/07/2013) * GGT(Performed 04/07/2013) * MAGNESIUM BLOOD(Performed 04/07/2013) * HEPATIC FUNCTION PANEL(Performed 04/07/2013) * HCG URINE QUALITATIVE(Performed 04/06/2013) * TACROLIMUS LEVEL(Performed 04/06/2013) * DIFFERENTIAL MANUAL(Performed 04/06/2013) * GGT(Performed 04/06/2013) * CBC W AUTO DIFFERENTIAL(Performed 04/06/2013) * MAGNESIUM BLOOD(Performed 04/06/2013) * HEPATIC FUNCTION PANEL(Performed 04/06/2013) * US DOPPLER PORTAL VEIN LIVER(Performed 04/05/2013) Performed for S/P liver transplant, biliary anastomosis without stent or T-tube (HCC) * CT ABDOMEN W CONTRAST(Performed 04/05/2013) Performed for S/P liver transplant, biliary anastomosis without stent or T-tube (HCC), Transplant rejection * MAGNESIUM BLOOD(Performed 04/05/2013) * CBC W AUTO DIFFERENTIAL(Performed 04/05/2013) * HEPATIC FUNCTION PANEL(Performed 04/05/2013) * DIFFERENTIAL MANUAL(Performed 04/05/2013) * TACROLIMUS LEVEL(Performed 04/05/2013) * LIPASE BLOOD(Performed 04/04/2013) * AMYLASE BLOOD(Performed 04/04/2013) * GGT(Performed 04/04/2013) * HEPATIC FUNCTION PANEL(Performed 04/04/2013) * CBC W AUTO DIFFERENTIAL(Performed 04/04/2013) * DIFFERENTIAL MANUAL(Performed 04/04/2013) * BIOPSY LIVER (NEEDLE/PERCUTANEOUS)(Performed 04/03/2013) Performed for Elevated liver enzymes * US ABDOMEN LTD W COMP DOPPLER(Performed 04/03/2013) Performed for S/P liver transplant, biliary anastomosis without stent or T-tube (HCC), Transplant rejection * HGB HCT PANEL(Performed 04/03/2013) * NUBIA BLOOD SCREEN W/REFLEX TITER(Performed 04/03/2013) Performed for S/P liver transplant, biliary anastomosis without stent or T-tube (HCC), Transplant rejection * CERULOPLASMIN(Performed 04/03/2013) Performed for S/P liver transplant, biliary anastomosis without stent or T-tube (HCC), Transplant rejection * IGG BLOOD(Performed 04/03/2013) Performed for S/P liver transplant, biliary anastomosis without stent or T-tube (HCC), HCC (hepatocellular carcinoma) (HCC), Transplant rejection * US GUIDE NEEDLE PLACEMENT(Performed 04/03/2013) Performed for Liver disorder * VIRAL CULTURE MISC(Performed 04/03/2013) Performed for S/P liver transplant, biliary anastomosis without stent or T-tube (HCC), HCC (hepatocellular carcinoma) (HCC), Transplant rejection * PATHOLOGY TISSUE EXAM (STL)(Performed 04/03/2013) Performed for S/P liver transplant, biliary anastomosis without stent or T-tube (HCC), Transplant rejection * CERULOPLASMIN(Performed 04/03/2013) Performed for S/P liver transplant, biliary anastomosis without stent or T-tube (HCC) * HCG URINE QUALITATIVE - POCT (IP) BEAKER(Performed 04/03/2013) * IGG BLOOD(Performed 04/03/2013) Performed for S/P liver transplant, biliary anastomosis without stent or T-tube (HCC) * DIFFERENTIAL MANUAL(Performed 04/03/2013) Performed for Liver disorder * PHOSPHORUS BLOOD(Performed 04/03/2013) Performed for Liver disorder * MAGNESIUM BLOOD(Performed 04/03/2013) Performed for Liver disorder * TACROLIMUS LEVEL(Performed 04/03/2013) Performed for Liver disorder * BASIC METABOLIC PANEL (CALCIUM TOTAL)(Performed 04/03/2013) Performed for Liver disorder * CBC W AUTO DIFFERENTIAL(Performed 04/03/2013) Performed for Liver disorder * PTT(Performed 04/03/2013) Performed for Liver disorder * PT-INR(Performed 04/03/2013) Performed for Liver disorder * HEPATIC FUNCTION PANEL(Performed 04/03/2013) Performed for Liver disorder * GGT(Performed 04/03/2013) Performed for Liver disorder * SMOOTH MUSCLE ANTIBODY W REFLEX TITER(Performed 04/03/2013) Performed for Liver disorder * MICROSOMAL ANTIBODY LIVER/KIDNEY(Performed 04/03/2013) Performed for Liver disorder * NUBIA BLOOD SCREEN W/REFLEX TITER(Performed 04/03/2013) Performed for Liver disorder * [id number] BLOOD(Performed 04/03/2013) Performed for Liver disorder * URINE MICROSCOPIC ONLY(Performed 03/31/2013) Performed for Leaking of urine * URINALYSIS REFLEX TO MICROSCOPIC NO CULTURE(Performed 03/31/2013) Performed for Leaking of urine * CULTURE URINE(Performed 03/31/2013) Performed for Leaking of urine * DIFFERENTIAL MANUAL(Performed 03/31/2013) Performed for Status post liver transplant (HCC) * BETTINA-MEDRANO VIRUS PCR QUANTITATIVE WHOLE BLOOD(Performed 03/31/2013) Performed for Status post liver transplant (HCC), Leaking of urine, HCC (hepatocellular carcinoma) (HCC), Pain, Anxiety, Sedation, Respiratory distress, Feeding problem, Footprints Patient , Hepatocellular carcinoma, fibrolamellar (HCC), S/P liver transplant, biliary anastomosis without stent or T-tube (HCC), Transplant rejection * THIOPURINE METHYLTRANSFERASE(Performed 03/31/2013) Performed for Status post liver transplant (HCC) * GLUCOSE(Performed 03/31/2013) Performed for Status post liver transplant (HCC) * GGT(Performed 03/31/2013) Performed for Status post liver transplant (HCC) * CREATININE BLOOD(Performed 03/31/2013) Performed for Status post liver transplant (HCC) * BUN(Performed 03/31/2013) Performed for Status post liver transplant (HCC) * LYTES (NA K CL CO2) BLOOD(Performed 03/31/2013) Performed for Status post liver transplant (HCC) * MAGNESIUM BLOOD(Performed 03/31/2013) Performed for Status post liver transplant (HCC) * TACROLIMUS LEVEL(Performed 03/31/2013) Performed for Status post liver transplant (HCC) * CBC W AUTO DIFFERENTIAL(Performed 03/31/2013) Performed for Status post liver transplant (HCC) * HEPATIC FUNCTION PANEL(Performed 03/31/2013) Performed for Status post liver transplant (HCC) * BETTINA-MEDRANO VIRUS PCR QUANTITATIVE WHOLE BLOOD(Performed 03/29/2013) Performed for Status post liver transplant (HCC), S/P liver transplant, biliary anastomosis withoutstent or T-tube (HCC), HCC (hepatocellular carcinoma) (HCC), Pain, Anxiety, Sedation, Respiratory distress, Feeding problem, Footprints Patient , Hepatocellular carcinoma, fibrolamellar (HCC), Transplant rejection * CYTOMEGALOVIRUS QUAL PCR(Performed 03/29/2013) Performed for S/P liver transplant, biliary anastomosis without stent or T-tube (HCC) * DIFFERENTIAL MANUAL(Performed 03/29/2013) Performed for Status post liver transplant (HCC) * GLUCOSE(Performed 03/29/2013) Performed for Status post liver transplant (HCC) * GGT(Performed 03/29/2013) Performed for Status post liver transplant (HCC) * CREATININE BLOOD(Performed 03/29/2013) Performed for Status post liver transplant (HCC) * BUN(Performed 03/29/2013) Performed for Status post liver transplant (HCC) * LYTES (NA K CL CO2) BLOOD(Performed 03/29/2013) Performed for Status post liver transplant (HCC) * MAGNESIUM BLOOD(Performed 03/29/2013) Performed for Status post liver transplant (HCC) * TACROLIMUS LEVEL(Performed 03/29/2013) Performed for Status post liver transplant (HCC) * CBC W AUTO DIFFERENTIAL(Performed 03/29/2013) Performed for Status post liver transplant (HCC) * HEPATIC FUNCTION PANEL(Performed 03/29/2013) Performed for Status post liver transplant (HCC) * DIFFERENTIAL MANUAL(Performed 03/23/2013) Performed for Status post liver transplant (HCC) * GLUCOSE(Performed 03/23/2013) Performed for Status post liver transplant (HCC) * GGT(Performed 03/23/2013) Performed for Status post liver transplant (HCC) * CREATININE BLOOD(Performed 03/23/2013) Performed for Status post liver transplant (HCC) * BUN(Performed 03/23/2013) Performed for Status post liver transplant (HCC) * LYTES (NA K CL CO2) BLOOD(Performed 03/23/2013) Performed for Status post liver transplant (HCC) * MAGNESIUM BLOOD(Performed 03/23/2013) Performed for Status post liver transplant (HCC) * TACROLIMUS LEVEL(Performed 03/23/2013) Performed for Status post liver transplant (HCC) * CBC W AUTO DIFFERENTIAL(Performed 03/23/2013) Performed for Status post liver transplant (HCC) * HEPATIC FUNCTION PANEL(Performed 03/23/2013) Performed for Status post liver transplant (HCC) * PATHOLOGY/CYTOLOGY REPORT ORDER(Performed 03/21/2013) * GLUCOSE - POINT OF CARE(Performed 03/20/2013) * HEPATIC FUNCTION PANEL(Performed 03/20/2013) * TACROLIMUS LEVEL(Performed 03/20/2013) * GLUCOSE - POINT OF CARE(Performed 03/20/2013) * GLUCOSE - POINT OF CARE(Performed 03/19/2013) * GLUCOSE - POINT OF CARE(Performed 03/19/2013) * TACROLIMUS LEVEL(Performed 03/19/2013) * HEPATIC FUNCTION PANEL(Performed 03/19/2013) * GLUCOSE - POINT OF CARE(Performed 03/19/2013) * GLUCOSE - POINT OF CARE(Performed 03/18/2013) * GGT(Performed 03/18/2013) * TACROLIMUS LEVEL(Performed 03/18/2013) * PHOSPHORUS BLOOD(Performed 03/18/2013) * MAGNESIUM BLOOD(Performed 03/18/2013) * HEPATIC FUNCTION PANEL(Performed 03/18/2013) * BASIC METABOLIC PANEL (CALCIUM IONIZED)(Performed 03/18/2013) * GLUCOSE - POINT OF CARE(Performed 03/18/2013) * GLUCOSE - POINT OF CARE(Performed 03/17/2013) * GLUCOSE - POINT OF CARE(Performed 03/17/2013) * US ABDOMEN LTD W COMP DOPPLER(Performed 03/17/2013) Performed for Elevated transaminase level * BASIC METABOLIC PANEL (CALCIUM TOTAL)(Performed 03/17/2013) * GGT(Performed 03/17/2013) * PHOSPHORUS BLOOD(Performed 03/17/2013) * MAGNESIUM BLOOD(Performed 03/17/2013) * HEPATIC FUNCTION PANEL(Performed 03/17/2013) * TACROLIMUS LEVEL(Performed 03/17/2013) * VIRAL CULTURE MISC(Performed 03/17/2013) Performed for Liver replaced by transplant (HCC), HCC (hepatocellular carcinoma) (HCC), S/P liver transplant, biliary anastomosis without stent or T-tube (HCC) * CBC W AUTO DIFFERENTIAL(Performed 03/16/2013) * GGT(Performed 03/16/2013) * MAGNESIUM BLOOD(Performed 03/16/2013) * BASIC METABOLIC PANEL (CALCIUM TOTAL)(Performed 03/16/2013) * HEPATIC FUNCTION PANEL(Performed 03/16/2013) * PHOSPHORUS BLOOD(Performed 03/16/2013) * TACROLIMUS LEVEL(Performed 03/16/2013) * BIOPSY LIVER (NEEDLE/PERCUTANEOUS)(Performed 03/15/2013) Performed for Elevated liver enzymes * HGB HCT PANEL(Performed 03/15/2013) * PATHOLOGY TISSUE EXAM (STL)(Performed 03/15/2013) Performed for Liver replaced by transplant (HCC), S/P liver transplant, biliary anastomosis withoutstent or T-tube (HCC) * HCG URINE QUALITATIVE - POCT (IP) MANE(Performed 03/15/2013) * HEPATITIS SCREEN ACUTE(Performed 03/15/2013) Performed for S/P liver transplant (HCC) * HEPATIC FUNCTION PANEL(Performed 03/15/2013) Performed for S/P liver transplant (HCC) * GGT(Performed 03/15/2013) Performed for S/P liver transplant (HCC) * PT PTT PANEL(Performed 03/15/2013) Performed for S/P liver transplant (HCC) * NEEDLE BIOPSY, LIVER(Performed 03/15/2013) Performed for Liver replaced by transplant (HCC) * GLUCOSE(Performed 03/13/2013) Performed for Status post liver transplant (HCC) * GGT(Performed 03/13/2013) Performed for Status post liver transplant (HCC) * CREATININE BLOOD(Performed 03/13/2013) Performed for Status post liver transplant (HCC) * BUN(Performed 03/13/2013) Performed for Status post liver transplant (HCC) * LYTES (NA K CL CO2) BLOOD(Performed 03/13/2013) Performed for Status post liver transplant (HCC) * MAGNESIUM BLOOD(Performed 03/13/2013) Performed for Status post liver transplant (HCC) * TACROLIMUS LEVEL(Performed 03/13/2013) Performed for Status post liver transplant (HCC) * CBC W AUTO DIFFERENTIAL(Performed 03/13/2013) Performed for Status post liver transplant (HCC) * HEPATIC FUNCTION PANEL(Performed 03/13/2013) Performed for Status post liver transplant (HCC) * BETTINA-MEDRANO VIRUS PCR QUANTITATIVE WHOLE BLOOD(Performed 03/10/2013) * CT ABDOMEN PELVIS W CONTRAST(Performed 03/10/2013) Performed for HCC (hepatocellular carcinoma) (HCC) * TACROLIMUS LEVEL(Performed 03/10/2013) Performed for Status post liver transplant (HCC) * MAGNESIUM BLOOD(Performed 03/10/2013) Performed for Status post liver transplant (HCC) * LYTES (NA K CL CO2) BLOOD(Performed 03/10/2013) Performed for Status post liver transplant (HCC) * HEPATIC FUNCTION PANEL(Performed 03/10/2013) Performed for Status post liver transplant (HCC) * GLUCOSE(Performed 03/10/2013) Performed for Status post liver transplant (HCC) * GGT(Performed 03/10/2013) Performed for Status post liver transplant (HCC) * CREATININE BLOOD(Performed 03/10/2013) Performed for Status post liver transplant (HCC) * CBC W AUTO DIFFERENTIAL(Performed 03/10/2013) Performed for Status post liver transplant (HCC) * BUN(Performed 03/10/2013) Performed for Status post liver transplant (HCC) * VITAMIN D 25-HYDROXY(Performed 03/10/2013) Performed for S/P liver transplant, biliary anastomosis without stent or T-tube (HCC) * CYTOMEGALOVIRUS QUAL PCR(Performed 03/10/2013) Performed for S/P liver transplant, biliary anastomosis without stent or T-tube (HCC) * BETTINA-MEDRANO VIRUS PCR QUANTITATIVE WHOLE BLOOD(Performed 02/08/2013) Performed for Status post liver transplant (HCC), S/P liver transplant, biliary anastomosis withoutstent or T-tube (HCC), HCC (hepatocellular carcinoma) (HCC), Pain, Anxiety, Sedation, Respiratory distress, Feeding problem, Footprints Patient , Hepatocellular carcinoma, fibrolamellar (HCC) * GLUCOSE(Performed 02/08/2013) Performed for Status post liver transplant (HCC) * CREATININE BLOOD(Performed 02/08/2013) Performed for Status post liver transplant (HCC) * BUN(Performed 02/08/2013) Performed for Status post liver transplant (HCC) * LYTES (NA K CL CO2) BLOOD(Performed 02/08/2013) Performed for Status post liver transplant (HCC) * MAGNESIUM BLOOD(Performed 02/08/2013) Performed for Status post liver transplant (HCC) * TACROLIMUS LEVEL(Performed 02/08/2013) Performed for Status post liver transplant (HCC) * CBC W AUTO DIFFERENTIAL(Performed 02/08/2013) Performed for Status post liver transplant (HCC) * HEPATIC FUNCTION PANEL(Performed 02/08/2013) Performed for Status post liver transplant (HCC) * GGT(Performed 02/08/2013) * CYTOMEGALOVIRUS QUAL PCR(Performed 02/08/2013) Performed for S/P liver transplant, biliary anastomosis without stent or T-tube (HCC) * GLUCOSE(Performed 01/12/2013) Performed for Status post liver transplant (HCC) * GGT(Performed 01/12/2013) Performed for Status post liver transplant (HCC) * CREATININE BLOOD(Performed 01/12/2013) Performed for Status post liver transplant (HCC) * BUN(Performed 01/12/2013) Performed for Status post liver transplant (HCC) * LYTES (NA K CL CO2) BLOOD(Performed 01/12/2013) Performed for Status post liver transplant (HCC) * MAGNESIUM BLOOD(Performed 01/12/2013) Performed for Status post liver transplant (HCC) * TACROLIMUS LEVEL(Performed 01/12/2013) Performed for Status post liver transplant (HCC) * CBC W AUTO DIFFERENTIAL(Performed 01/12/2013) Performed for Status post liver transplant (HCC) * HEPATIC FUNCTION PANEL(Performed 01/12/2013) Performed for Status post liver transplant (HCC) * BETTINA-MEDRANO VIRUS PCR QUANTITATIVE WHOLE BLOOD(Performed 12/22/2012) Performed for Status post liver transplant (HCC) * CYTOMEGALOVIRUS DNA RT-PCR QUANT(Performed 12/22/2012) Performed for Status post liver transplant (HCC) * GLUCOSE(Performed 12/22/2012) Performed for Status post liver transplant (HCC) * GGT(Performed 12/22/2012) Performed for Status post liver transplant (HCC) * CREATININE BLOOD(Performed 12/22/2012) Performed for Status post liver transplant (HCC) * BUN(Performed 12/22/2012) Performed for Status post liver transplant (HCC) * LYTES (NA K CL CO2) BLOOD(Performed 12/22/2012) Performed for Status post liver transplant (HCC) * MAGNESIUM BLOOD(Performed 12/22/2012) Performed for Status post liver transplant (HCC) * TACROLIMUS LEVEL(Performed 12/22/2012) Performed for Status post liver transplant (HCC) * CBC W AUTO DIFFERENTIAL(Performed 12/22/2012) Performed for Status post liver transplant (HCC) * HEPATIC FUNCTION PANEL(Performed 12/22/2012) Performed for Status post liver transplant (HCC) * VITAMIN E(Performed 11/30/2012) Performed for S/P liver transplant, biliary anastomosis without stent or T-tube (HCC) * VITAMIN D 25-HYDROXY(Performed 11/30/2012) Performed for S/P liver transplant, biliary anastomosis without stent or T-tube (HCC) * VITAMIN A(Performed 11/30/2012) Performed for S/P liver transplant, biliary anastomosis without stent or T-tube (HCC) * BETTINA-MEDRANO VIRUS PCR QUANT BLOOD/CSF(Performed 11/30/2012) Performed for S/P liver transplant, biliary anastomosis without stent or T-tube (HCC) * MAGNESIUM BLOOD(Performed 11/30/2012) Performed for S/P liver transplant, biliary anastomosis without stent or T-tube (HCC) * GLUCOSE(Performed 11/30/2012) Performed for S/P liver transplant, biliary anastomosis without stent or T-tube (HCC) * GGT(Performed 11/30/2012) Performed for S/P liver transplant, biliary anastomosis without stent or T-tube (HCC) * CREATININE BLOOD(Performed 11/30/2012) Performed for S/P liver transplant, biliary anastomosis without stent or T-tube (HCC) * BUN(Performed 11/30/2012) Performed for S/P liver transplant, biliary anastomosis without stent or T-tube (HCC) * LYTES (NA K CL CO2) BLOOD(Performed 11/30/2012) Performed for S/P liver transplant, biliary anastomosis without stent or T-tube (HCC) * TACROLIMUS LEVEL(Performed 11/30/2012) Performed for S/P liver transplant, biliary anastomosis without stent or T-tube (HCC) * CBC W AUTO DIFFERENTIAL(Performed 11/30/2012) Performed for S/P liver transplant, biliary anastomosis without stent or T-tube (HCC) * HEPATIC FUNCTION PANEL(Performed 11/30/2012) Performed for S/P liver transplant, biliary anastomosis without stent or T-tube (HCC) * CT ABDOMEN PELVIS W CONTRAST(Performed 11/30/2012) Performed for Hepatocellular carcinoma, fibrolamellar (HCC) * HEPATIC FUNCTION PANEL(Performed 11/16/2012) Performed for H/O liver transplant (HCC) * DIFFERENTIAL MANUAL(Performed 11/16/2012) Performed for H/O liver transplant (HCC) * CBC W AUTO DIFFERENTIAL(Performed 11/16/2012) Performed for H/O liver transplant (HCC) * MAGNESIUM BLOOD(Performed 11/16/2012) Performed for Liver replaced by transplant (HCC) * TACROLIMUS LEVEL(Performed 11/16/2012) Performed for Liver replaced by transplant (HCC) * GLUCOSE(Performed 11/16/2012) Performed for Liver replaced by transplant (HCC) * CREATININE BLOOD(Performed 11/16/2012) Performed for Liver replaced by transplant (HCC) * BUN(Performed 11/16/2012) Performed for Liver replaced by transplant (HCC) * LYTES (NA K CL CO2) BLOOD(Performed 11/16/2012) Performed for Liver replaced by transplant (HCC) * GGT(Performed 11/16/2012) Performed for Liver replaced by transplant (HCC) * US DOPPLER PORTAL VEIN LIVER(Performed 11/04/2012) Performed for S/P liver transplant, biliary anastomosis without stent or T-tube (HCC) * MAGNESIUM BLOOD(Performed 11/04/2012) Performed for Liver replaced by transplant (HCC) * DIFFERENTIAL MANUAL(Performed 11/04/2012) Performed for Liver replaced by transplant (HCC) * TACROLIMUS LEVEL(Performed 11/04/2012) Performed for Liver replaced by transplant (HCC) * CBC W AUTO DIFFERENTIAL(Performed 11/04/2012) Performed for Liver replaced by transplant (HCC) * GLUCOSE(Performed 11/04/2012) Performed for Liver replaced by transplant (HCC) * CREATININE BLOOD(Performed 11/04/2012) Performed for Liver replaced by transplant (HCC) * BUN(Performed 11/04/2012) Performed for Liver replaced by transplant (HCC) * LYTES (NA K CL CO2) BLOOD(Performed 11/04/2012) Performed for Liver replaced by transplant (HCC) * GGT(Performed 11/04/2012) Performed for Liver replaced by transplant (HCC) * HEPATIC FUNCTION PANEL(Performed 11/04/2012) Performed for Liver replaced by transplant (HCC) * DIFFERENTIAL MANUAL(Performed 10/26/2012) Performed for Liver replaced by transplant (HCC) * MAGNESIUM BLOOD(Performed 10/26/2012) Performed for Liver replaced by transplant (HCC) * TACROLIMUS LEVEL(Performed 10/26/2012) Performed for Liver replaced by transplant (HCC) * CBC W AUTO DIFFERENTIAL(Performed 10/26/2012) Performed for Liver replaced by transplant (HCC) * GLUCOSE(Performed 10/26/2012) Performed for Liver replaced by transplant (HCC) * CREATININE BLOOD(Performed 10/26/2012) Performed for Liver replaced by transplant (HCC) * BUN(Performed 10/26/2012) Performed for Liver replaced by transplant (HCC) * LYTES (NA K CL CO2) BLOOD(Performed 10/26/2012) Performed for Liver replaced by transplant (HCC) * GGT(Performed 10/26/2012) Performed for Liver replaced by transplant (HCC) * HEPATIC FUNCTION PANEL(Performed 10/26/2012) Performed for Liver replaced by transplant (HCC) * DIFFERENTIAL MANUAL(Performed 10/18/2012) Performed for Liver replaced by transplant (HCC) * MAGNESIUM BLOOD(Performed 10/18/2012) Performed for Liver replaced by transplant (HCC) * TACROLIMUS LEVEL(Performed 10/18/2012) Performed for Liver replaced by transplant (HCC) * CBC W AUTO DIFFERENTIAL(Performed 10/18/2012) Performed for Liver replaced by transplant (HCC) * GLUCOSE(Performed 10/18/2012) Performed for Liver replaced by transplant (HCC) * CREATININE BLOOD(Performed 10/18/2012) Performed for Liver replaced by transplant (HCC) * BUN(Performed 10/18/2012) Performed for Liver replaced by transplant (HCC) * LYTES (NA K CL CO2) BLOOD(Performed 10/18/2012) Performed for Liver replaced by transplant (HCC) * GGT(Performed 10/18/2012) Performed for Liver replaced by transplant (HCC) * HEPATIC FUNCTION PANEL(Performed 10/18/2012) Performed for Liver replaced by transplant (HCC) * TACROLIMUS LEVEL(Performed 10/10/2012) Performed for Liver replaced by transplant (HCC) * DIFFERENTIAL MANUAL(Performed 10/10/2012) Performed for Liver replaced by transplant (HCC) * BETTINA-MEDRANO VIRUS PCR QUANT BLOOD/CSF(Performed 10/10/2012) Performed for Liver replaced by transplant (HCC) * MAGNESIUM BLOOD(Performed 10/10/2012) Performed for Liver replaced by transplant (HCC) * CBC W AUTO DIFFERENTIAL(Performed 10/10/2012) Performed for Liver replaced by transplant (HCC) * GLUCOSE(Performed 10/10/2012) Performed for Liver replaced by transplant (HCC) * CREATININE BLOOD(Performed 10/10/2012) Performed for Liver replaced by transplant (HCC) * BUN(Performed 10/10/2012) Performed for Liver replaced by transplant (HCC) * LYTES (NA K CL CO2) BLOOD(Performed 10/10/2012) Performed for Liver replaced by transplant (HCC) * GGT(Performed 10/10/2012) Performed for Liver replaced by transplant (HCC) * HEPATIC FUNCTION PANEL(Performed 10/10/2012) Performed for Liver replaced by transplant (HCC) * DIFFERENTIAL MANUAL(Performed 10/05/2012) Performed for Liver replaced by transplant (HCC) * MAGNESIUM BLOOD(Performed 10/05/2012) Performed for Liver replaced by transplant (HCC) * TACROLIMUS LEVEL(Performed 10/05/2012) Performed for Liver replaced by transplant (HCC) * CBC W AUTO DIFFERENTIAL(Performed 10/05/2012) Performed for Liver replaced by transplant (HCC) * GLUCOSE(Performed 10/05/2012) Performed for Liver replaced by transplant (HCC) * CREATININE BLOOD(Performed 10/05/2012) Performed for Liver replaced by transplant (HCC) * BUN(Performed 10/05/2012) Performed for Liver replaced by transplant (HCC) * LYTES (NA K CL CO2) BLOOD(Performed 10/05/2012) Performed for Liver replaced by transplant (HCC) * GGT(Performed 10/05/2012) Performed for Liver replaced by transplant (HCC) * HEPATIC FUNCTION PANEL(Performed 10/05/2012) Performed for Liver replaced by transplant (HCC) * DIFFERENTIAL MANUAL(Performed 09/21/2012) Performed for Liver replaced by transplant (HCC) * MAGNESIUM BLOOD(Performed 09/21/2012) Performed for Liver replaced by transplant (HCC) * TACROLIMUS LEVEL(Performed 09/21/2012) Performed for Liver replaced by transplant (HCC) * CBC W AUTO DIFFERENTIAL(Performed 09/21/2012) Performed for Liver replaced by transplant (HCC) * GLUCOSE(Performed 09/21/2012) Performed for Liver replaced by transplant (HCC) * CREATININE BLOOD(Performed 09/21/2012) Performed for Liver replaced by transplant (HCC) * BUN(Performed 09/21/2012) Performed for Liver replaced by transplant (HCC) * LYTES (NA K CL CO2) BLOOD(Performed 09/21/2012) Performed for Liver replaced by transplant (HCC) * GGT(Performed 09/21/2012) Performed for Liver replaced by transplant (HCC) * HEPATIC FUNCTION PANEL(Performed 09/21/2012) Performed for Liver replaced by transplant (HCC) * DIFFERENTIAL MANUAL(Performed 09/14/2012) Performed for Liver replaced by transplant (HCC) * MAGNESIUM BLOOD(Performed 09/14/2012) Performed for Liver replaced by transplant (HCC) * TACROLIMUS LEVEL(Performed 09/14/2012) Performed for Liver replaced by transplant (HCC) * CBC W AUTO DIFFERENTIAL(Performed 09/14/2012) Performed for Liver replaced by transplant (HCC) * GLUCOSE(Performed 09/14/2012) Performed for Liver replaced by transplant (HCC) * CREATININE BLOOD(Performed 09/14/2012) Performed for Liver replaced by transplant (HCC) * BUN(Performed 09/14/2012) Performed for Liver replaced by transplant (HCC) * LYTES (NA K CL CO2) BLOOD(Performed 09/14/2012) Performed for Liver replaced by transplant (HCC) * GGT(Performed 09/14/2012) Performed for Liver replaced by transplant (HCC) * HEPATIC FUNCTION PANEL(Performed 09/14/2012) Performed for Liver replaced by transplant (HCC) * APHERESIS/TRANSFUSION ORDER(Performed 09/07/2012) * CARDIAC EKG ORDER(Performed 09/07/2012) * DIFFERENTIAL MANUAL(Performed 09/07/2012) Performed for Liver replaced by transplant (HCC) * MAGNESIUM BLOOD(Performed 09/07/2012) Performed for Liver replaced by transplant (HCC) * TACROLIMUS LEVEL(Performed 09/07/2012) Performed for Liver replaced by transplant (HCC) * CBC W AUTO DIFFERENTIAL(Performed 09/07/2012) Performed for Liver replaced by transplant (HCC) * GLUCOSE(Performed 09/07/2012) Performed for Liver replaced by transplant (HCC) * CREATININE BLOOD(Performed 09/07/2012) Performed for Liver replaced by transplant (HCC) * BUN(Performed 09/07/2012) Performed for Liver replaced by transplant (HCC) * LYTES (NA K CL CO2) BLOOD(Performed 09/07/2012) Performed for Liver replaced by transplant (HCC) * GGT(Performed 09/07/2012) Performed for Liver replaced by transplant (HCC) * HEPATIC FUNCTION PANEL(Performed 09/07/2012) Performed for Liver replaced by transplant (HCC) * DIFFERENTIAL MANUAL(Performed 09/04/2012) Performed for Liver replaced by transplant (HCC) * MAGNESIUM BLOOD(Performed 09/04/2012) Performed for Liver replaced by transplant (HCC) * TACROLIMUS LEVEL(Performed 09/04/2012) Performed for Liver replaced by transplant (HCC) * CBC W AUTO DIFFERENTIAL(Performed 09/04/2012) Performed for Liver replaced by transplant (HCC) * GLUCOSE(Performed 09/04/2012) Performed for Liver replaced by transplant (HCC) * CREATININE BLOOD(Performed 09/04/2012) Performed for Liver replaced by transplant (HCC) * BUN(Performed 09/04/2012) Performed for Liver replaced by transplant (HCC) * LYTES (NA K CL CO2) BLOOD(Performed 09/04/2012) Performed for Liver replaced by transplant (HCC) * GGT(Performed 09/04/2012) Performed for Liver replaced by transplant (HCC) * HEPATIC FUNCTION PANEL(Performed 09/04/2012) Performed for Liver replaced by transplant (HCC) * DIFFERENTIAL MANUAL(Performed 09/03/2012) Performed for Liver replaced by transplant (HCC) * URINE MICROSCOPIC ONLY(Performed 09/03/2012) Performed for Liver replaced by transplant (HCC), HCC (hepatocellular carcinoma) (HCC), Pain, Anxiety, Sedation, Respiratory distress, Feeding problem, Footprints Patient , Hepatocellular carcinoma, fibrolamellar (HCC), S/P liver transplant, biliary anastomosis without stent or T-tube (HCC) * BASIC METABOLIC PANEL (CALCIUM TOTAL)(Performed 09/03/2012) Performed for Liver replaced by transplant (HCC), HCC (hepatocellular carcinoma) (HCC), Pain, Anxiety, Sedation, Respiratory distress, Feeding problem, Footprints Patient , Hepatocellular carcinoma, fibrolamellar (HCC), S/P liver transplant, biliary anastomosis without stent or T-tube (HCC) * HEPATIC FUNCTION PANEL(Performed 09/03/2012) Performed for Liver replaced by transplant (HCC), HCC (hepatocellular carcinoma) (HCC), Pain, Anxiety, Sedation, Respiratory distress, Feeding problem, Footprints Patient , Hepatocellular carcinoma, fibrolamellar (HCC), S/P liver transplant, biliary anastomosis without stent or T-tube (HCC) * C-REACTIVE PROTEIN(Performed 09/03/2012) Performed for Liver replaced by transplant (HCC), HCC (hepatocellular carcinoma) (HCC), Pain, Anxiety, Sedation, Respiratory distress, Feeding problem, Footprints Patient , Hepatocellular carcinoma, fibrolamellar (HCC), S/P liver transplant, biliary anastomosis without stent or T-tube (HCC) * URINALYSIS REFLEX TO MICROSCOPIC NO CULTURE(Performed 09/03/2012) Performed for Liver replaced by transplant (HCC), HCC (hepatocellular carcinoma) (HCC), Pain, Anxiety, Sedation, Respiratory distress, Feeding problem, Footprints Patient , Hepatocellular carcinoma, fibrolamellar (HCC), S/P liver transplant, biliary anastomosis without stent or T-tube (HCC) * CBC W AUTO DIFFERENTIAL(Performed 09/03/2012) Performed for Liver replaced by transplant (HCC) * CULTURE BLOOD(Performed 09/03/2012) Performed for Liver replaced by transplant (HCC), HCC (hepatocellular carcinoma) (HCC), Pain, Anxiety, Sedation, Respiratory distress, Feeding problem, Footprints Patient , Hepatocellular carcinoma, fibrolamellar (HCC), S/P liver transplant, biliary anastomosis without stent or T-tube (HCC) * CULTURE URINE(Performed 09/03/2012) Performed for Liver replaced by transplant (HCC), HCC (hepatocellular carcinoma) (HCC), Pain, Anxiety, Sedation, Respiratory distress, Feeding problem, Footprints Patient , Hepatocellular carcinoma, fibrolamellar (HCC), S/P liver transplant, biliary anastomosis without stent or T-tube (HCC) * PHOSPHORUS BLOOD(Performed 09/02/2012) * BILIRUBIN DIRECT(Performed 09/02/2012) * MAGNESIUM BLOOD(Performed 09/02/2012) * COMPREHENSIVE METABOLIC PANEL(Performed 09/02/2012) * CBC W AUTO DIFFERENTIAL(Performed 09/02/2012) * PT PTT PANEL(Performed 09/02/2012) * DIFFERENTIAL MANUAL(Performed 09/02/2012) * TACROLIMUS LEVEL(Performed 09/02/2012) * DIFFERENTIAL MANUAL(Performed 09/01/2012) * GGT(Performed 09/01/2012) * CBC W AUTO DIFFERENTIAL(Performed 09/01/2012) * HEPATIC FUNCTION PANEL(Performed 09/01/2012) * TACROLIMUS LEVEL(Performed 09/01/2012) * DIFFERENTIAL MANUAL(Performed 09/01/2012) * PHOSPHORUS BLOOD(Performed 09/01/2012) * BILIRUBIN DIRECT(Performed 09/01/2012) * MAGNESIUM BLOOD(Performed 09/01/2012) * COMPREHENSIVE METABOLIC PANEL(Performed 09/01/2012) * CBC W AUTO DIFFERENTIAL(Performed 09/01/2012) * TACROLIMUS LEVEL(Performed 09/01/2012) * DIFFERENTIAL MANUAL(Performed 08/31/2012) * GGT(Performed 08/31/2012) * CBC W AUTO DIFFERENTIAL(Performed 08/31/2012) * HEPATIC FUNCTION PANEL(Performed 08/31/2012) * URINALYSIS REFLEX MICROSCOPIC REFLEX CULTURE(Performed 08/31/2012) * PT PTT PANEL(Performed 08/31/2012) * PHOSPHORUS BLOOD(Performed 08/31/2012) * BILIRUBIN DIRECT(Performed 08/31/2012) * MAGNESIUM BLOOD(Performed 08/31/2012) * COMPREHENSIVE METABOLIC PANEL(Performed 08/31/2012) * CBC W AUTO DIFFERENTIAL(Performed 08/31/2012) * TACROLIMUS LEVEL(Performed 08/31/2012) * DIFFERENTIAL MANUAL(Performed 08/31/2012) * CULTURE BLOOD(Performed 08/30/2012) * GGT(Performed 08/30/2012) * HEPATIC FUNCTION PANEL(Performed 08/30/2012) * CBC W AUTO DIFFERENTIAL(Performed 08/30/2012) * DIFFERENTIAL MANUAL(Performed 08/30/2012) * DIFFERENTIAL MANUAL(Performed 08/30/2012) * PT PTT PANEL(Performed 08/30/2012) * PHOSPHORUS BLOOD(Performed 08/30/2012) * BILIRUBIN DIRECT(Performed 08/30/2012) * MAGNESIUM BLOOD(Performed 08/30/2012) * COMPREHENSIVE METABOLIC PANEL(Performed 08/30/2012) * CBC W AUTO DIFFERENTIAL(Performed 08/30/2012) * TACROLIMUS LEVEL(Performed 08/30/2012) * GGT(Performed 08/29/2012) * CBC W AUTO DIFFERENTIAL(Performed 08/29/2012) * HEPATIC FUNCTION PANEL(Performed 08/29/2012) * TACROLIMUS LEVEL(Performed 08/29/2012) * DIFFERENTIAL MANUAL(Performed 08/29/2012) * PHOSPHORUS BLOOD(Performed 08/29/2012) * BILIRUBIN DIRECT(Performed 08/29/2012) * MAGNESIUM BLOOD(Performed 08/29/2012) * COMPREHENSIVE METABOLIC PANEL(Performed 08/29/2012) * CBC W AUTO DIFFERENTIAL(Performed 08/29/2012) * DIFFERENTIAL MANUAL(Performed 08/29/2012) * PT PTT PANEL(Performed 08/29/2012) * PREPARE FFP UNIT(S)(Performed 08/29/2012) * PREPARE FFP UNIT(S)(Performed 08/29/2012) * PREPARE FFP UNIT(S)(Performed 08/29/2012) * MAGNESIUM BLOOD(Performed 08/28/2012) * COMPREHENSIVE METABOLIC PANEL(Performed 08/28/2012) * CYTOMEGALOVIRUS ANTIBODY IGG/IGM BLOOD(Performed 08/28/2012) * COMPREHENSIVE METABOLIC PANEL(Performed 08/28/2012) * MAGNESIUM BLOOD(Performed 08/28/2012) * BLOOD GASES ART + LYTES GLUC CA+ PANEL(Performed 08/28/2012) * PT PTT PANEL(Performed 08/28/2012) * CBC W AUTO DIFFERENTIAL(Performed 08/28/2012) * DIFFERENTIAL MANUAL(Performed 08/28/2012) * COMPREHENSIVE METABOLIC PANEL(Performed 08/27/2012) * COMPREHENSIVE METABOLIC PANEL(Performed 08/27/2012) * BLOOD GASES ART + LYTES GLUC CA+ PANEL(Performed 08/27/2012) * COMPREHENSIVE METABOLIC PANEL(Performed 08/27/2012) * US ABDOMEN LTD W COMP DOPPLER(Performed 08/27/2012) Performed for Organ transplant * COMPREHENSIVE METABOLIC PANEL(Performed 08/27/2012) * BLOOD GASES ART + LYTES GLUC CA+ PANEL(Performed 08/27/2012) * XR CHEST 1VW(Performed 08/27/2012) Performed for S/P liver transplant, biliary anastomosis without stent or T-tube (HCC), Respiratory distress * MAGNESIUM BLOOD(Performed 08/27/2012) * PT PTT PANEL(Performed 08/27/2012) * CBC W AUTO DIFFERENTIAL(Performed 08/27/2012) * DIFFERENTIAL MANUAL(Performed 08/27/2012) * BLOOD GASES ART + LYTES GLUC CA+ PANEL(Performed 08/27/2012) * COMPREHENSIVE METABOLIC PANEL(Performed 08/26/2012) * BLOOD GASES ART + LYTES GLUC CA+ PANEL(Performed 08/26/2012) * BLOOD GASES ART + LYTES PANEL(Performed 08/26/2012) * CULTURE MRSA(Performed 08/26/2012) * CBC W AUTO DIFFERENTIAL(Performed 08/26/2012) * DIFFERENTIAL MANUAL(Performed 08/26/2012) * PREPARE FFP UNIT(S)(Performed 08/26/2012) * COMPREHENSIVE METABOLIC PANEL(Performed 08/26/2012) * BLOOD GASES ART + LYTES GLUC CA+ PANEL(Performed 08/26/2012) * XR CHEST 1VW(Performed 08/26/2012) Performed for Hepatocellular carcinoma, fibrolamellar (HCC) * TRANSPLANT LIVER(Performed 08/26/2012) Performed for Liver failure (HCC) * BLOOD GASES ART + GLUC K CA+ PANEL(Performed 08/26/2012) Performed for HCC (hepatocellular carcinoma) (HCC) * BLOOD GASES ART + GLUC K CA+ PANEL(Performed 08/26/2012) * BETTINA-MEDRANO VIRUS ANTIBODY PANEL(Performed 08/26/2012) * BLOOD GASES ART + LYTES GLUC CA+ PANEL(Performed 08/26/2012) Performed for HCC (hepatocellular carcinoma) (HCC) * BLOOD GASES ART + LYTES GLUC CA+ PANEL(Performed 08/26/2012) Performed for HCC (hepatocellular carcinoma) (HCC) * PATHOLOGY TISSUE EXAM (STL)(Performed 08/26/2012) Performed for HCC (hepatocellular carcinoma) (HCC) * BLOOD TYPE ORGAN DONOR TRANSPLANT(Performed 08/26/2012) * GLUCOSE - POINT OF CARE(Performed 08/25/2012) * HCG URINE QUALITATIVE(Performed 08/25/2012) * URINALYSIS REFLEX TO MICROSCOPIC NO CULTURE(Performed 08/25/2012) * CULTURE URINE(Performed 08/25/2012) * HOLD SPECIMEN BLOOD(Performed 08/25/2012) * CROSSMATCH RBC LEUKOREDUCED(Performed 08/25/2012) * CROSSMATCH RBC LEUKOREDUCED(Performed 08/25/2012) * CROSSMATCH RBC LEUKOREDUCED(Performed 08/25/2012) * CROSSMATCH RBC LEUKOREDUCED(Performed 08/25/2012) * PT PTT PANEL(Performed 08/25/2012) * GGT(Performed 08/25/2012) * CBC W AUTO DIFFERENTIAL(Performed 08/25/2012) * PHOSPHORUS BLOOD(Performed 08/25/2012) * MAGNESIUM BLOOD(Performed 08/25/2012) * COMPREHENSIVE METABOLIC PANEL(Performed 08/25/2012) * BETTINA-MEDRANO VIRUS PCR QUANT BLOOD/CSF(Performed 08/25/2012) * CYTOMEGALOVIRUS DNA RT-PCR QUANT(Performed 08/25/2012) * TYPE + SCREEN PANEL(Performed 08/25/2012) * FIBRINOGEN ACTIVITY(Performed 08/25/2012) * HEPATITIS SCREEN ACUTE(Performed 08/25/2012) * AMYLASE BLOOD(Performed 08/25/2012) * CYTOMEGALOVIRUS ANTIBODY IGM BLOOD(Performed 08/25/2012) * EKG 15-LEAD(Performed 08/25/2012) * XR CHEST 2VW(Performed 08/25/2012) Performed for Organ transplant, HCC (hepatocellular carcinoma) (HCC) * CT ABDOMEN PELVIS W CONTRAST(Performed 08/23/2012) Performed for Hepatocellular carcinoma, fibrolamellar (HCC) * IMAGING/RADIOLOGY/XRAY RESULTS ORDER(Performed 08/18/2012) * MAGNESIUM BLOOD(Performed 08/16/2012) Performed for Hepatocellular carcinoma, fibrolamellar (HCC) * PHOSPHORUS BLOOD(Performed 08/16/2012) Performed for Hepatocellular carcinoma, fibrolamellar (HCC) * LIPASE BLOOD(Performed 08/16/2012) Performed for Hepatocellular carcinoma, fibrolamellar (HCC) * COMPREHENSIVE METABOLIC PANEL(Performed 08/16/2012) Performed for Hepatocellular carcinoma, fibrolamellar (HCC) * CBC W AUTO DIFFERENTIAL(Performed 08/16/2012) Performed for Hepatocellular carcinoma, fibrolamellar (HCC) * IMAGING/RADIOLOGY/XRAY RESULTS ORDER(Performed 07/25/2012) * DIFFERENTIAL MANUAL(Performed 07/19/2012) Performed for Hepatocellular carcinoma, fibrolamellar (HCC) * CBC W AUTO DIFFERENTIAL(Performed 07/19/2012) Performed for Hepatocellular carcinoma, fibrolamellar (HCC) * COMPREHENSIVE METABOLIC PANEL(Performed 07/19/2012) Performed for Hepatocellular carcinoma, fibrolamellar (HCC) * PET CT WHOLE BODY(Performed 06/14/2012) * GLUCOSE - POINT OF CARE (AMB) SLU(Performed 06/14/2012) * GLUCOSE - POINT OF CARE (AMB) SLU(Performed 06/14/2012) * LIPASE BLOOD(Performed 06/14/2012) Performed for HCC (hepatocellular carcinoma) (HCC) * PHOSPHORUS BLOOD(Performed 06/14/2012) Performed for HCC (hepatocellular carcinoma) (HCC) * MAGNESIUM BLOOD(Performed 06/14/2012) Performed for HCC (hepatocellular carcinoma) (HCC) * AMYLASE BLOOD(Performed 06/14/2012) Performed for HCC (hepatocellular carcinoma) (HCC) * CBC W AUTO DIFFERENTIAL(Performed 06/14/2012) Performed for HCC (hepatocellular carcinoma) (HCC) * COMPREHENSIVE METABOLIC PANEL(Performed 06/14/2012) Performed for HCC (hepatocellular carcinoma) (HCC) * CT ABDOMEN PELVIS W CONTRAST(Performed 06/05/2012) Performed for Abdominal pain, acute * LIPASE BLOOD(Performed 06/05/2012) * AMYLASE BLOOD(Performed 06/05/2012) * COMPREHENSIVE METABOLIC PANEL(Performed 06/05/2012) * CBC W AUTO DIFFERENTIAL(Performed 06/05/2012) * LIPASE BLOOD(Performed 05/20/2012) Performed for HCC (hepatocellular carcinoma) (HCC) * PHOSPHORUS BLOOD(Performed 05/20/2012) Performed for HCC (hepatocellular carcinoma) (HCC) * MAGNESIUM BLOOD(Performed 05/20/2012) Performed for HCC (hepatocellular carcinoma) (HCC) * COMPREHENSIVE METABOLIC PANEL(Performed 05/20/2012) Performed for HCC (hepatocellular carcinoma) (HCC) * CBC W AUTO DIFFERENTIAL(Performed 05/20/2012) Performed for HCC (hepatocellular carcinoma) (HCC) * DIFFERENTIAL MANUAL(Performed 04/22/2012) Performed for Hepatocellular carcinoma, fibrolamellar (HCC) * LIPASE BLOOD(Performed 04/22/2012) Performed for Hepatocellular carcinoma, fibrolamellar (HCC) * PHOSPHORUS BLOOD(Performed 04/22/2012) Performed for Hepatocellular carcinoma, fibrolamellar (HCC) * MAGNESIUM BLOOD(Performed 04/22/2012) Performed for Hepatocellular carcinoma, fibrolamellar (HCC) * COMPREHENSIVE METABOLIC PANEL(Performed 04/22/2012) Performed for Hepatocellular carcinoma, fibrolamellar (HCC) * CBC W AUTO DIFFERENTIAL(Performed 04/22/2012) Performed for Hepatocellular carcinoma, fibrolamellar (HCC) * CT ABDOMEN PELVIS W CONTRAST(Performed 03/30/2012) Performed for HCC (hepatocellular carcinoma) (HCC) * COMPREHENSIVE METABOLIC PANEL(Performed 03/23/2012) Performed for Hepatocellular carcinoma, fibrolamellar (HCC) * CBC W AUTO DIFFERENTIAL(Performed 03/23/2012) Performed for Hepatocellular carcinoma, fibrolamellar (HCC) * IMAGING/RADIOLOGY/XRAY RESULTS ORDER(Performed 03/09/2012) * PHOSPHORUS BLOOD(Performed 03/08/2012) Performed for HCC (hepatocellular carcinoma) (HCC) * MAGNESIUM BLOOD(Performed 03/08/2012) Performed for HCC (hepatocellular carcinoma) (HCC) * SLIDE SCAN HEMATOLOGY(Performed 03/08/2012) Performed for HCC (hepatocellular carcinoma) (HCC) * COMPREHENSIVE METABOLIC PANEL(Performed 03/08/2012) Performed for HCC (hepatocellular carcinoma) (HCC) * CBC W AUTO DIFFERENTIAL(Performed 03/08/2012) Performed for HCC (hepatocellular carcinoma) (HCC) * DIFFERENTIAL MANUAL(Performed 02/23/2012) Performed for HCC (hepatocellular carcinoma) (HCC) * LIPASE BLOOD(Performed 02/23/2012) Performed for HCC (hepatocellular carcinoma) (HCC) * COMPREHENSIVE METABOLIC PANEL(Performed 02/23/2012) Performed for HCC (hepatocellular carcinoma) (HCC) * CBC W AUTO DIFFERENTIAL(Performed 02/23/2012) Performed for HCC (hepatocellular carcinoma) (HCC) * DIFFERENTIAL MANUAL(Performed 02/16/2012) Performed for HCC (hepatocellular carcinoma) (HCC) * COMPREHENSIVE METABOLIC PANEL(Performed 02/16/2012) Performed for HCC (hepatocellular carcinoma) (HCC) * CBC W AUTO DIFFERENTIAL(Performed 02/16/2012) Performed for HCC (hepatocellular carcinoma) (HCC) * IP CONSULT TO ANESTHESIOLOGY(Performed 02/12/2012) * NM BONE SCAN SPECT(Performed 02/10/2012) * NM BONE SCAN WHOLE BODY(Performed 02/10/2012) * HEPATIC FUNCTION PANEL(Performed 02/10/2012) Performed for HCC (hepatocellular carcinoma) (HCC) * LIPASE BLOOD(Performed 02/09/2012) Performed for HCC (hepatocellular carcinoma) (HCC) * AMYLASE BLOOD(Performed 02/09/2012) Performed for HCC (hepatocellular carcinoma) (HCC) * HEMOGLOBIN(Performed 02/09/2012) Performed for HCC (hepatocellular carcinoma) (HCC) * IMAGING/RADIOLOGY/XRAY RESULTS ORDER(Performed 02/09/2012) * DIFFERENTIAL MANUAL(Performed 02/09/2012) * BASIC METABOLIC PANEL (CALCIUM TOTAL)(Performed 02/09/2012) * CBC W AUTO DIFFERENTIAL(Performed 02/09/2012) * IP CONSULT TO PEDIATRIC SURGERY(Performed 02/08/2012) * CT ABDOMEN PELVIS W CONTRAST(Performed 02/08/2012) Performed for Fever and chills * CULTURE BLOOD(Performed 02/08/2012) * URINE MICROSCOPIC ONLY REFLEX TO CULTURE(Performed 02/08/2012) * URINALYSIS REFLEX MICROSCOPIC REFLEX CULTURE(Performed 02/08/2012) * COMPREHENSIVE METABOLIC PANEL(Performed 02/08/2012) * CBC W AUTO DIFFERENTIAL(Performed 02/08/2012) * DIFFERENTIAL MANUAL(Performed 02/08/2012) * POTASSIUM BLOOD(Performed 02/03/2012) * CULTURE BLOOD(Performed 02/02/2012) * COMPREHENSIVE METABOLIC PANEL(Performed 02/02/2012) * CULTURE BLOOD(Performed 02/01/2012) * CULTURE URINE(Performed 01/31/2012) * DIFFERENTIAL MANUAL(Performed 01/31/2012) * COMPREHENSIVE METABOLIC PANEL(Performed 01/31/2012) * CBC W AUTO DIFFERENTIAL(Performed 01/31/2012) * LIPASE BLOOD(Performed 01/30/2012) * AMYLASE BLOOD(Performed 01/30/2012) * HEPATIC FUNCTION PANEL(Performed 01/30/2012) * BLOOD GASES CAP + CA+ PANEL(Performed 01/30/2012) * BASIC METABOLIC PANEL (CALCIUM TOTAL)(Performed 01/30/2012) * PHOSPHORUS BLOOD(Performed 01/30/2012) Performed for Hepatocellular carcinoma (HCC) * MAGNESIUM BLOOD(Performed 01/30/2012) Performed for Hepatocellular carcinoma (HCC) * HEPATIC FUNCTION PANEL(Performed 01/30/2012) Performed for Hepatocellular carcinoma (HCC) * CBC W AUTO DIFFERENTIAL(Performed 01/30/2012) Performed for Hepatocellular carcinoma (HCC) * DIFFERENTIAL MANUAL(Performed 01/30/2012) Performed for Hepatocellular carcinoma (HCC) * PT PTT PANEL(Performed 01/29/2012) * CREATININE BLOOD(Performed 01/29/2012) * LYTES (NA K CL CO2) BLOOD(Performed 01/29/2012) * HEPATIC FUNCTION PANEL(Performed 01/29/2012) * IR ANGIO SELECTIVE(Performed 01/29/2012) * IR VASCULAR CLOSURE DEVICE(Performed 01/29/2012) * IR EMBOLIZATION TRANSCATH THPY(Performed 01/29/2012) * IR CAROTID CEREBRAL ANGIOGRAM(Performed 01/29/2012) * IR ANGIO EXTREMITY PROCEDURAL CODE(Performed 01/29/2012) * IR ANGIO EXTREMITY PROCEDURAL CODE(Performed 01/29/2012) * IR VISCERAL ANGIO(Performed 01/29/2012) * IR ANGIO SELECTIVE(Performed 01/29/2012) * IR ANGIO SELECTIVE(Performed 01/29/2012) * IR EMBOLIZATION TRANSCATH THPY(Performed 01/29/2012) * URINALYSIS REFLEX TO MICROSCOPIC NO CULTURE(Performed 01/29/2012) * HCG URINE QUALITATIVE(Performed 01/29/2012) * URINE MICROSCOPIC ONLY(Performed 01/29/2012) * PT PTT PANEL(Performed 01/29/2012) * CROSSMATCH RBC LEUKOREDUCED(Performed 01/29/2012) * CROSSMATCH RBC LEUKOREDUCED(Performed 01/29/2012) * ANTIBODY SCREEN(Performed 01/29/2012) * BLOOD TYPE ABO+ RH PANEL(Performed 01/29/2012) * COMPREHENSIVE METABOLIC PANEL(Performed 01/29/2012) * CBC W AUTO DIFFERENTIAL(Performed 01/29/2012) * IMAGING/RADIOLOGY/XRAY RESULTS ORDER(Performed 01/21/2012) * AMMONIA(Performed 01/19/2012) * HEPATIC FUNCTION PANEL(Performed 01/19/2012) * CT HEAD WO CONTRAST(Performed 01/19/2012) Performed for Headache * PT PTT PANEL(Performed 01/11/2012) Performed for Pre-transplant evaluation for chronic liver disease * LYTES (NA K CL CO2) BLOOD(Performed 01/11/2012) Performed for Pre-transplant evaluation for chronic liver disease * CREATININE BLOOD(Performed 01/11/2012) Performed for Pre-transplant evaluation for chronic liver disease * HEPATIC FUNCTION PANEL(Performed 01/11/2012) Performed for Pre-transplant evaluation for chronic liver disease * VITAMIN B12 BINDING CAPACITY(Performed 01/11/2012) 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) * CEA BLOOD(Performed 01/11/2012) 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) * PATHOLOGY/CYTOLOGY REPORT ORDER(Performed 01/08/2012) * CARDIAC EKG ORDER(Performed 01/08/2012) * ECHO CONSULT - PEDIATRIC(Performed 01/07/2012) Performed for Pre-transplant evaluation for chronic liver disease * EKG 15-LEAD(Performed 01/07/2012) Performed for Pre-transplant evaluation for chronic liver disease * CYTOMEGALOVIRUS ANTIBODY IGG/IGM BLOOD(Performed 01/07/2012) * BLOOD TYPE ABO+ RH PANEL(Performed 01/07/2012) * HEPATITIS A IGM ANTIBODY(Performed 01/07/2012) * HEPATITIS A ANTIBODY(Performed 01/07/2012) * HERPES SIMPLEX 1+2 ANTIBODY IGG/IGM PANEL(Performed 01/07/2012) * VARICELLA ZOSTER ANTIBODY IGG(Performed 01/07/2012) * LIPID PROFILE(Performed 01/07/2012) * HIV-1 HIV-2 ANTIBODY + HIV P24 AG PANEL(Performed 01/07/2012) * PHOSPHORUS BLOOD(Performed 01/05/2012) * MAGNESIUM BLOOD(Performed 01/05/2012) * BASIC METABOLIC PANEL (CALCIUM TOTAL)(Performed 01/05/2012) * CBC W/O DIFFERENTIAL(Performed 01/04/2012) * XR ABD OBSTRUCTION SERIES 2VW(Performed 01/03/2012) Performed for Liver mass * CBC W AUTO DIFFERENTIAL(Performed 01/03/2012) * DIFFERENTIAL MANUAL(Performed 01/03/2012) * CULTURE URINE(Performed 01/02/2012) * CULTURE BLOOD(Performed 01/02/2012) * XR CHEST 1VW(Performed 01/02/2012) Performed for Liver mass * BIOPSY LIVER (NEEDLE/PERCUTANEOUS)(Performed 01/01/2012) Performed for Other specified disorders of liver * LAPAROSCOPY DIAGNOSTIC(Performed 01/01/2012) Performed for Other specified disorders of liver * HOMOVANILLIC ACID URINE RANDOM(Performed 01/01/2012) * CATECHOLAMINES URINE FRACTIONATED TIMED(Performed 01/01/2012) * VMA URINE TIMED(Performed 01/01/2012) * US GUIDE INTRAOPERATIVE(Performed 01/01/2012) Performed for Liver mass * PATHOLOGY TISSUE EXAM (STL)(Performed 01/01/2012) Performed for Liver mass * HCG URINE QUALITATIVE(Performed 01/01/2012) * CYTOGENETICS CANCER PANEL(Performed 01/01/2012) Performed for RLQ abdominal pain, Liver mass * CYTOGENETICS CANCER PANEL(Performed 01/01/2012) Performed for RLQ abdominal pain, Liver mass * FECAL LEUKOCYTES(Performed 12/31/2011) * PET CT WHOLE BODY(Performed 12/31/2011) * MRI ABDOMEN WWO CONTRAST(Performed 12/30/2011) Performed for RLQ abdominal pain * HGB HCT PANEL(Performed 12/30/2011) * XR CHEST 2VW(Performed 12/30/2011) Performed for RLQ abdominal pain * US PELVIS W TRANSVAG W DOP NON OB(Performed 12/30/2011) Performed for RLQ abdominal pain * CEA BLOOD(Performed 12/30/2011) * CROSSMATCH RBC LEUKOREDUCED(Performed 12/30/2011) * CROSSMATCH RBC LEUKOREDUCED(Performed 12/30/2011) * HGB HCT PANEL(Performed 12/30/2011) * TYPE + SCREEN PANEL(Performed 12/30/2011) * PT PTT PANEL(Performed 12/30/2011) * CBC W AUTO DIFFERENTIAL(Performed 12/30/2011) * BETTINA-MEDRANO VIRUS ANTIBODY PANEL(Performed 12/30/2011) * HEPATITIS C ANTIBODY(Performed 12/30/2011) * HEPATITIS B PANEL(Performed 12/30/2011) * FERRITIN(Performed 12/30/2011) * HCG BETA BLOOD TUMOR MARKER(Performed 12/30/2011) * ALPHA FETOPROTEIN BLOOD TUMOR MARKER(Performed 12/30/2011) * LDH BLOOD(Performed 12/30/2011) * HCG URINE QUALITATIVE(Performed 12/30/2011) * CT OUTSIDE CONSULTATION(Performed 12/30/2011) Performed for RLQ abdominal pain Results * TACROLIMUS LEVEL (04/21/2024 2:53 PM SOLVENT PROCESS EXTRACTOR OPERATOR) Only the most recent of169 resultswithin the time period is included. Tacrolimus 5.2 mcg/L [facility] Comment: No definitive therapeutic or toxic ranges have been established. Optimal blood drug levels are influenced by type of transplant, patient response, time post- transplant, co-administration of other drugs, and drug formulation. The following trough range is a suggested guideline: 5.0-20.0 mcg/L. Test Performed at: [facility] [id number] [place], [place] ??[id number] NIGEL RUIZ MD 04/21/2024 2:53 PM SOLVENT PROCESS EXTRACTOR OPERATOR 04/21/2024 2:54 PM SOLVENT PROCESS EXTRACTOR OPERATOR Juan Landry MD LAB - THERAPEUTIC DR MARTINEZ MONITORING ORDERABLES [address] [id number] * HEMOGLOBIN A1C (04/21/2024 2:53 PM SOLVENT PROCESS EXTRACTOR OPERATOR) Hemoglobin A1c <4.2 <5.7 % of total Hgb [facility] Comment: Verified by repeat analysis. For the purpose of screening for the presence of diabetes: <5.7% ? Consistent with the absence of diabetes 5.7-6.4% ?Consistent with increased risk for diabetes ?(prediabetes) > or =6.5% ??Consistent with diabetes This assay result is consistent with a decreased risk of diabetes. Currently, no consensus exists regarding use of hemoglobin A1c for diagnosis of diabetes in children. According to [place] Diabetes Association (ADA) guidelines, hemoglobin A1c <7.0% represents optimal control in non- diabetic patients. Different metrics may apply to specific patient populations. Standards of Medical Care in Diabetes(ADA). ?? Test Performed at: [email or web address] ??[id number] NIGEL RUIZ MD 04/21/2024 2:53 PM SOLVENT PROCESS EXTRACTOR OPERATOR 04/21/2024 2:54 PM SOLVENT PROCESS EXTRACTOR OPERATOR Juan Landry MD LAB - CHEMISTRY STEPHON AKINS Performing Organization Address [facility]/ZIP Co de Phone Number [address] [address] * (ABNORMAL) CBC W/O DIFFERENTIAL (04/21/2024 2:53 PM SOLVENT PROCESS EXTRACTOR OPERATOR) Only the most recent of17 resultswithin the time period is included. White Blood Cell Count 3.7(L) 3.8 - 10.8 Thousand/ uL [facility] RBC 3.51(L) 3.80 - 5.10 Million/u L [facility] Hemoglobin 11.0(L) 11.7 - 15.5 g/dL [facility] Hematocrit 34.9(L) 35.0 - 45.0 % [facility] MCV 99.4 80.0 - 100.0 fL [facility] MCH 31.3 27.0 - 33.0 pg [facility] MCHC 31.5(L) 32.0 - 36.0 g/dL [facility] Comment: For adults, a slight decrease in the calculated MCHC value (in the range of 30 to 32 g/dL) is most likely not clinically significant; however, it should be interpreted with caution in correlation with other red cell parameters and the patient's clinical condition. RDW 12.3 11.0 - 15.0 % [facility] Platelet Count 81(L) 140 - 400 Thousand/ uL [facility] MPV 12.3 7.5 - 12.5 fL [facility] Comment: Test Performed at: [email or web address] ??[id number] NIGEL RUIZ MD 04/21/2024 2:53 PM SOLVENT PROCESS EXTRACTOR OPERATOR 04/21/2024 2:54 PM SOLVENT PROCESS EXTRACTOR OPERATOR Juan Landry MD LAB - HEMATOLOGY ORD LOVE Performing Organization Address [facility]/ZIP Co de Phone Number [address] [address] * (ABNORMAL) BASIC METABOLIC PANEL (CALCIUM TOTAL) (04/21/2024 2:53 PM SOLVENT PROCESS EXTRACTOR OPERATOR) Only the most recent of16 resultswithin the time period is included. Pathologist [facility] Glucose 101(H) 65 - 99 mg/dL [facility] Comment: ? Fasting reference interval For someone without known diabetes, a glucose value between 100 and 125 mg/dL is consistent with prediabetes and should be confirmed with a follow-up test. BUN 13 7 - 25 mg/dL [facility] Creatinine 0.53 0.50 - 0.96 mg/dL [facility] eGFR by Cystatin C 132 > OR = 60 mL/min/1. 73m2 [facility] BUN/Creatinine Ratio SEE NOTE: 6 - 22 (calc) [facility] Comment: ?? Not Reported: BUN and Creatinine are within ?? reference range. ? Sodium 142 135 - 146 mmol/L [facility] Potassium 3.7 3.5 - 5.3 mmol/L [facility] Chloride 108 98 - 110 mmol/L [facility] CO2 29 20 - 32 mmol/L [facility] Calcium 8.2(L) 8.6 - 10.2 mg/dL [facility] Comment: Test Performed at: [email or web address] ??[id number] NIGEL RUIZ MD 04/21/2024 2:53 PM SOLVENT PROCESS EXTRACTOR OPERATOR 04/21/2024 2:54 PM SOLVENT PROCESS EXTRACTOR OPERATOR Juan Landry MD LAB - CHEMISTRY ORDE MABLE [address] [address] * (ABNORMAL) HEPATIC FUNCTION PANEL (04/21/2024 2:53 PM SOLVENT PROCESS EXTRACTOR OPERATOR) Only the most recent of91 resultswithin the time period is included. Protein Total 6.3 6.1 - 8.1 g/dL [facility] Albumin 3.6 3.6 - 5.1 g/dL [facility] Globulin Total 2.7 1.9 - 3.7 g/dL (calc) [facility] Albumin/Globulin Ratio 1.3 1.0 - 2.5 (calc) [facility] Bilirubin Total 0.8 0.2 - 1.2 mg/dL [facility] Bilirubin Direct 0.2 < OR = 0.2 mg/dL [facility] Bilirubin Indirect 0.6 0.2 - 1.2 mg/dL (calc) [facility] Alkaline Phosphatase 133(H) 31 - 125 U/L [facility] AST 54(H) 10 - 30 U/L [facility] ALT 46(H) 6 - 29 U/L [facility] Comment: Test Performed at: [email or web address] ??[id number] NIGEL RUIZ MD 04/21/2024 2:53 PM SOLVENT PROCESS EXTRACTOR OPERATOR 04/21/2024 2:54 PM SOLVENT PROCESS EXTRACTOR OPERATOR Juan Landry MD LAB - CHEMISTRY STEPHON AKINS Performing Organization Address City/[facility]/ZIP Co de Phone Number [address] [address] * LIPID PROFILE (04/21/2024 2:53 PM SOLVENT PROCESS EXTRACTOR OPERATOR) Only the most recent of4 resultswithin the time period is included. Cholesterol 140 <200 mg/dL [facility] HDL Cholesterol 66 > OR = 50 mg/dL [facility] Triglycerides 54 <150 mg/dL [facility] LDL Calculated 61 mg/dL (calc) [facility] Comment: Reference range: <100 Desirable range <100 mg/dL for primary prevention; ?? <70 mg/dL for patients with CHD or diabetic patients with > or = 2 CHD risk factors. LDL-C is now calculated using the Jorge-Pema calculation, which is a validated novel method providing better accuracy than the Friedewald equation in the estimation of LDL-C. Jorge SS et al. DANIELLE. 2013;310(19): 0997-7032 (http://education.[employer]/faq/THQ865) CHOL/HDLC RATIO 2.1 <5.0 (calc) [facility] Non HDL Cholesterol 74 <130 mg/dL (calc) [facility] Comment: For patients with diabetes plus 1 major ASCVD risk factor, treating to a non-HDL-C goal of <100 mg/dL (LDL-C of <70 mg/dL) is considered a therapeutic option. Test Performed at: [email or web address] ??[id number] NIGEL RUIZ MD 04/21/2024 2:53 PM SOLVENT PROCESS EXTRACTOR OPERATOR 04/21/2024 2:54 PM SOLVENT PROCESS EXTRACTOR OPERATOR Juan Landry MD LAB - CHEMISTRY STEPHON AKINS Performing Organization Address City/[facility]/ZIP Co de Phone Number [address] [address] * HPV DETECTION HIGH RISK HU (06/23/2023 11:24 AM SOLVENT PROCESS EXTRACTOR OPERATOR) High Risk Human Papilloma Result Not detected Not detected 06/25/2023 7:10 AM SOLVENT PROCESS EXTRACTOR OPERATOR [facility] High Risk Human Papilloma Interp 06/25/2023 7:10 AM SOLVENT PROCESS EXTRACTOR OPERATOR [facility] Comment:High Risk Human Saleem lloma Virus was Not Detected. Pathology/Cytolo gy MISCELLANEOUS SAMPLES / Unknown 06/23/2023 11:24 AM SOLVENT PROCESS EXTRACTOR OPERATOR 06/24/2023 11:24 AM SOLVENT PROCESS EXTRACTOR OPERATOR Narrative [facility] - 06/25/2023 7:10 AM SOLVENT PROCESS EXTRACTOR OPERATOR Nucleic acid isolated from the specimen was analyzed with a nucleic acid amplification test (FDA approved Gen-Probe HPV Assay) to detect high risk human papilloma virus (Types: 16, 18, 31, 33, 35, 39, 45, 51, 52, 56, 58, 59, 66, and 68). ??The reference range is Not Detected . Comment: These test results should not be used as the sole basis for clinical assessment and treatment of patients. ??These results should always be correlated with other available data (cytology, histology, and clinical information). Sabra Rocha MD LAB - MICROBIOLOGY O RDERABLES Performing Organization Address City/State/[facility] Co de Phone Number [facility] [address] [place] [address], [facility] [phone] * PAP IMAGE-GUIDED W HPV (06/23/2023 11:24 AM SOLVENT PROCESS EXTRACTOR OPERATOR) Pathologist [facility] Case Report Gynecologic Cytology Report ? Case: [id number] ? Authorizing Provider: ??Sabra Rocha MD ?Collected: ? 06/23/2023 11:24 AM ? [facility] ??Received: ?06/24/2023 11:24 AM ? DRAWING KILN SUPERVISOR ? First Screen: ?Maycol, Jarvis ? Specimen: ?THINPREP - IMAGE GUIDED, Cervix/Endocervix ? 06/28/2023 10:16 AM CDT [facility] LMP none 06/28/2023 10:16 AM CDT [facility] Menstrual Status Mirena 06/28/19 24 10:16 AM CDT [facility] Specimen Adequacy Satisfactory for evaluation, endocervical/trans formation zone component absent. 06/28/2023 10:16 AM CDT [facility] Categorization Negative for intraepithelial lesion or malignancy. 06/28/2023 10:16 AM CDT [facility] Interpretation CNC MILL AND LATHE OPERATOR Negative for intraepithelial lesion or malignancy. 06/28/2023 10:16 AM CDT [facility] Pap Footnote The Pap Smear is a screening test. False positive and false negative results occur. Negative results do not preclude abnormalities, thus clinical correlation is required. This specimen was evaluated by the ThinPrep Imaging System along with an additional manual rescreening by a cashier and waiter/waitress and/or pathologist. 06/28/2023 10:16 AM CDT [facility] Embedded Images 10:16 AM CDT [facility] Pathology/Cytolo gy MISCELLANEOUS SAMPLES / Unknown 06/23/2023 11:24 AM SOLVENT PROCESS EXTRACTOR OPERATOR 06/24/2023 11:24 AM SOLVENT PROCESS EXTRACTOR OPERATOR Sabra Rocha MD LAB - PATHOLOGY/CYTO LOGY ORDERABLES [facility] [address] [phone] * CT US GUIDED NEEDLE PLACEMENT (03/12/2023 8:49 AM SOLVENT PROCESS EXTRACTOR OPERATOR) Anatomical Region Laterality Modality Chest, Abdomen X-Ray Angiograph y Impressions 03/12/2023 9:35 AM SOLVENT PROCESS EXTRACTOR OPERATOR Impression: Ultrasound-guided core biopsy of right lobe of transplant liver, as detailed above. Note that the pathology report is pending at the time of this dictation. I, Dr. Sandra Tee, was present and performed/supervised the entire procedure. Moderate sedation on this patient was ordered by me, administered intravenously in my presence, and monitored by the procedure nurse as an independent trained observer who was present throughout the procedure. The following parameters were monitored: oxygen saturation, heart rate, blood pressure, and response to care. Intra-service sedation start time was 8:25 AM and end time was 8:47 AM during which I was present. Total physician intra-service sedation time was 22 minutes. For details on pre moderate sedation and post moderate sedation patient evaluation, please review the evaluation forms in [facility]. For details on monitored clinical parameters during the intra-service sedation time, please review the procedure nurse documentation in [facility]. > Interpreting Provider: Landy Tee MD on 03/12/2023 9:35 AM Narrative 03/12/2023 9:35 AM SOLVENT PROCESS EXTRACTOR OPERATOR PROCEDURE: ??CT US GUIDED NEEDLE PLACEMENT DATE/TIME OF EXAM: ??03/12/2023 8:52 AM CLINICAL INFORMATION: None relevant/not provided if blank. Indication: Z94.4: History of liver transplant (CMS/HCC) History: This is a 22-year-old the female status post liver transplant in 2012. Patient recently found to have abnormal liver enzymes, was referred for suspected rejection. Operators: 1.Dr. Sandra Tee, Attending Physician Anesthesia: 1.Local anesthesia - 10 mL of 1% lidocaine 2.Intravenous conscious sedation - Versed 1.5 mg and Fentanyl 75 mcg Procedure: 1.Limited ultrasound evaluation of the liver. 2.Ultrasound-guided core biopsy of right lobe transplant liver. Procedure in detail: The procedure, risk, and possible complications were explained to the patient in detail, and informed consent was obtained. The patient was placed in a supine position on the ultrasound table and a limited multiplanar ultrasound evaluation of the liver was performed, demonstrating unremarkable liver parenchyma. A percutaneous access site was marked on the skin in the right upper quadrant. The marked site and skin around the region of interest was prepped and draped in sterile fashion. Pre-procedure time out was performed. Local anesthesia was provided with 1% Lidocaine. A 17 gauge coaxial needle system was advanced in stages under ultrasound guidance. The needle entry was documented. With the needle tip at/within the edge of the lesion, 2 core samples were acquired with a 18 gauge biopsy gun. The samples were sent to the pathology service in formalin. Post-biopsy limited ultrasound evaluation did not show any immediate complications such as major hemorrhage. The patient tolerated the procedure well and was transferred to the holding area in stable condition. Juan Wang MD CT ORDERABLES * PATHOLOGY TISSUE (03/12/2023 8:37 AM SOLVENT PROCESS EXTRACTOR OPERATOR) Case Report Surgical Pathology Report ? Case: [id number] ? Authorizing Provider: ??Juan Landry MD ?Collected: ? 03/12/2023 08:37 AM ? Ordering Location: ? [facility] ?Received: ?03/12/2023 10:50 AM ? Pathologist: ? Darlene March MD ? Specimen: ?Liver ? 03/15/2023 6:03 PM [facility] Final Diagnosis Liver, allograft, biopsy (A): - Minimal/mild bile duct injury, see comment - No significant fibrosis 03/15/2023 6:03 PM [facility] Microscopic Description and Comment The liver biopsy is two cores of parenchyma with intact lobular/acinar architecture and mostly minimal histologic alterations (e.g. mild sinusoidal dilatation/congestion ). The portal tracts are small with no significant inflammation, including ano mixed rejection-like infiltrate. The interlobular bile ducts likewise appear unremarkable and without inflammation, although occasional portal tracts do not have a discernible bile duct branch. An immunostain for CK7 (block A1, with appropriately staining controls) shows absence of bile ducts in 6/21 portal tracts. However, there is no significant ductular reaction and no biliary metaplasia. There is no endotheliitis. There is also no significant steatosis or features of steatohepatitis, and no acute or chronic cholestasis. The trichrome stain highlights normal portal stroma and central veins without significant fibrosis. The reticulin stain shows foci of condensation, and also highlights mild sinusoidal dilation. The PAS-D stain is negative for alpha-1 antitrypsin globules. The iron stain highlights widespread punctate reticuloendothelial iron and focal blush (1+) hepatoceullar iron. There are no features of T-cell mediated/acute cellular rejection in this biopsy, as none of the the classic triad of histologic findings (mixed inflammation, endotheliitis, and lymphocytic bile duct injury) is seen. The history of prior acute cellular rejection possible concern for chronic rejection is noted, although interlobular bile ducts are not absent in only a minor subset of portal tracts-far less than typically seen for chronic ductopenia rejection. Furthermore, there is no widespread biliary metaplasia or obvious features of sustained chronic cholestasis as would be expected in significant bile duct loss. There are also no features of steatotic liver disease and overall the minimal histologic alterations do not correlate well with significant liver injury. 03/15/2023 6:03 PM [facility] Clinical History The patient is a 22-year-old woman status post liver transplant; rule out rejection. Operative procedure: Ultrasound-guided biopsy 03/15/2023 6:03 PM [facility] Gross Description The requisition and specimen(s) are identified with the patient's name Lili Aguila . Received in formalin, specimen A , consists of 2 yellow-hale brown cylindrical core fragments, 1.8 cm and 2.2 cm in length, each 0.1 cm in diameter. The specimen is submitted in toto in cassette A1. ELEUTERIO 03/15/2023 6:03 PM [facility] Pathologist Location at [facility] 03/15/2023 6:03 PM [facility] Disclaimer The performance characteristics of all immunohistochemical and indirect immunofluorescence stains (if any) cited in this report were determined by the [facility]opathology Laboratory of [facility]. Some of these tests were developed by our own laboratory and have not been cleared or approved by the US Food and Drug Administration. The FDA does not require this test to go through premarket FDA review. These tests are used for clinical purposes. They should not be regarded as investigational or for research. This laboratory is certified under the Clinical Laboratory Improvement Amendments (CLIA) as qualified to perform high complexity clinical laboratory testing. This case has been personally reviewed and interpreted by the attending (teaching) pathologist. 03/15/2023 6:03 PM [facility] Collected By Frandy Zimmerman RN 03/15/2023 6:03 PM [facility] Embedded Images 03/15/2023 6:03 PM [facility] Pathology/Cytolog y ENTIRE LIVER / Unknown Collection / Unknown 03/12/2023 8:37 AM SOLVENT PROCESS EXTRACTOR OPERATOR 03/12/2023 10:50 AM SOLVENT PROCESS EXTRACTOR OPERATOR Comment:H/o txp r/o rejectio n Juan Landry MD LAB - PATHOLOGY/CYTO LOGY ORDERABLES Performing Organization Address City/[facility]/ZIP Co de Phone Number [facility] [address] [place] [place] [address], [facility] [phone] * (ABNORMAL) PT-INR [facility] (03/12/2023 7:27 AM SOLVENT PROCESS EXTRACTOR OPERATOR) Only the most recent of2 resultswithin the time period is included. PT 16.3(H) 12.1 - 14.8 Seconds 03/12/2023 7:52 AM SOLVENT PROCESS EXTRACTOR OPERATOR [facility] INR 1.4 See Comment 03/12/2023 7:52 AM [facility] Comment:The suggested therap eutic range for standard coumadin (warfarin) therapy is an INR of 2.0-3.0. For high-risk patients (Mechanical Mitral Valve Prosthesis, etc.), the suggested prophylactic therapeutic range is an INR of 2.5-3.5. Blood BLOOD SPECIMEN / Unknown Venipuncture / Unknown 03/12/2023 7:27 AM SOLVENT PROCESS EXTRACTOR OPERATOR 03/12/2023 7:52 AM SOLVENT PROCESS EXTRACTOR OPERATOR Aliya Bird MD LAB - COAGULATION ORDERABLES Performing Organization Address [facility] Co de Phone Number [address] [phone], [facility] [phone] * HCG URINE QUALITATIVE - POCT (IP) INTERFACED (03/12/2023 7:10 AM SOLVENT PROCESS EXTRACTOR OPERATOR) Only the most recent of2 resultswithin the time period is included. HCG Qual Urine Negative Negative 03/12/2023 7:17 AM SOLVENT PROCESS EXTRACTOR OPERATOR [facility] Urine URINE / Unknown 03/12/2023 7 :10 AM SOLVENT PROCESS EXTRACTOR OPERATOR 03/12/2023 7:17 AM SOLVENT PROCESS EXTRACTOR OPERATOR Juan Landry MD LAB - POINT OF CARE ORDERABLES Performing Organization Address City/[facility]/ZIP Co de Phone Number [facility] [address] [place] [phone], [facility] [phone] * HCG URINE QUAL POCT NOTIFICATION (03/12/2023 7:09 AM SOLVENT PROCESS EXTRACTOR OPERATOR) Comment Notification Label Only - See Separate Report 03/12/2023 8:30 AM SOLVENT PROCESS EXTRACTOR OPERATOR [facility] Urine URINE / Unknown 03/12/2023 7 :09 AM SOLVENT PROCESS EXTRACTOR OPERATOR 03/12/2023 7:09 AM SOLVENT PROCESS EXTRACTOR OPERATOR Juan Landry MD LAB - URINALYSIS ORD ERABLES [facility] [address] [place] [address], [facility] [phone] * US LIVER TRANSPLANT (03/09/2023 11:04 AM SOLVENT PROCESS EXTRACTOR OPERATOR) Only the most recent of2 resultswithin the time period is included. Anatomical Region Laterality Modality Abdomen Ultrasound 03/09/2023 10:5 6 AM SOLVENT PROCESS EXTRACTOR OPERATOR Impressions 03/09/2023 5:15 PM SOLVENT PROCESS EXTRACTOR OPERATOR IMPRESSION: 1.Normal sonographic appearance of the transplant liver. 2.Diffuse interval decrease within the portal velocities with redemonstrated splenomegaly and splenic varices. 3.Otherwise normal liver Doppler with patent hepatic transplant vasculature. > Dictated by Miller Rincon MD (manager of radiology). > Dictated by Miller Rincon (Clinical Project Leader) 03/09/2023 10:56 AM IBryant MD have personally reviewed and interpreted this examination/study. > Interpreting Provider: Bryant Moraes MD on 03/09/2023 5:15 PM Narrative 03/09/2023 5:15 PM SOLVENT PROCESS EXTRACTOR OPERATOR PROCEDURE: ??US LIVER TRANSPLANT, DATE/TIME OF EXAM: ??03/09/2023 10:15 AM, LOCATION ??[facility] INDICATION: Z94.4: History of liver transplant (CMS/HCC) R74.8: Elevated liver enzymes ADDITIONAL CLINICAL INFORMATION: Ordering Provider Reason For Exam: ??elevated liver enzymes COMPARISON: CT chest PE abdomen and pelvis 01/26/2022, liver transplant ultrasound 08/10/2019. FINDINGS: Abdomen: The patient is status post liver transplant. The orthotopic liver is normal in echotexture and echogenicity with smooth surface contour. No discrete hepatic mass or intrahepatic biliary dilatation is seen. A calcified granuloma is redemonstrated within the right hemiliver. The gallbladder is absent. The common bile duct is nondilated, measuring 5 mm. The right kidney measures 13.1 x 4.9 x 5.8 cm. Limited views of the right kidney reveal no evidence of nephrolithiasis or hydronephrosis. The spleen measures 20.3 cm in length. The visible pancreas is normal in echogenicity. No ascites is present. Splenic varices are partially visualized. Liver Doppler: Color and spectral Doppler evaluation demonstrates patency of the hepatic veins with appropriate flow direction and multiphasic waveforms. The portal veins appear patent with normal hepatopetal flow and phasic waveforms. The proper, left, and right hepatic arteries are patent and have normal arterial waveforms with brisk systolic upstroke and antegrade flow. Main portal vein velocity: 9 - 15 cm/s (previously 34 cm/s) Right portal vein velocity: 8 cm/s (previously 18 cm/s) Left portal vein velocity: 7 cm/s (previously 19 cm/s) Proper hepatic artery resistive index: 0.63 (previously 0.63) Right hepatic artery resistive index: 0.64 (previously 0.64) Left hepatic artery resistive index: 0.65 (previously 0.66) Procedure Note Ruby Moraes MD - 03/09/2023 PROCEDURE: US LIVER TRANSPLANT, DATE/TIME OF EXAM: 03/09/2023 10:15AM, LOCATION [facility] INDICATION: Z94.4: History of liver transplant (CMS/HCC) R74.8: Elevated liver enzymes ADDITIONAL CLINICAL INFORMATION: Ordering Provider Reason For Exam: elevated liver enzymes COMPARISON: CT chest PE abdomen and pelvis 01/26/2022, liver transplant ultrasound 08/10/2019. FINDINGS: Abdomen: The patient is status post liver transplant. The orthotopic liver isnormal in echotexture and echogenicity with smooth surface contour. No discrete hepatic mass or intrahepatic biliary dilatation is seen. A calcified granuloma is redemonstrated within the right hemiliver. The gallbladderis absent. The common bile duct is nondilated, measuring 5 mm. The right kidney measures 13.1 x 4.9 x 5.8 cm. Limited views of the right kidney reveal no evidence of nephrolithiasis or hydronephrosis. The spleen measures 20.3 cm in length. The visible pancreas is normal inechogenicity. No ascites is present. Splenic varices are partially visualized. Liver Doppler: Color and spectral Doppler evaluation demonstrates patency of thehepatic veins with appropriate flow direction and multiphasic waveforms. Theportal veins appear patent with normal hepatopetal flow and phasic waveforms.The proper, left, and right hepatic arteries are patent and have normal arterial waveforms with brisk systolic upstroke and antegrade flow. Main portal vein velocity: 9 - 15 cm/s (previously 34 cm/s) Right portal vein velocity: 8 cm/s (previously 18 cm/s) Left portal vein velocity: 7 cm/s (previously 19 cm/s) Proper hepatic artery resistive index: 0.63 (previously 0.63) Right hepatic artery resistive index: 0.64 (previously 0.64) Left hepatic artery resistive index: 0.65 (previously 0.66) IMPRESSION: 1.Normal sonographic appearance of the transplant liver. 2.Diffuse interval decrease within the portal velocities with redemonstrated splenomegaly and splenic varices. 3.Otherwise normal liver Doppler with patent hepatic transplant vasculature. > Dictated by Miller Rincon MD (manager of radiology). > Dictated by Miller Rincon (Clinical Project Leader) 03/09/2023 10:56 AM IBryant MD have personally reviewed and interpreted this examination/study. > Interpreting Provider: Bryant Moraes MD on 03/09/2023 5:15 PM Juan Landry MD ORDERABLES * (ABNORMAL) COMPREHENSIVE METABOLIC PANEL (02/23/2023 12:04 PM SOLVENT PROCESS EXTRACTOR OPERATOR) Only the most recent of134 resultswithin the time period is included. Glucose 75 65 - 99 mg/dL [facility] Comment: ? Fasting reference interval BUN 11 7 - 25 mg/dL [facility] Creatinine 0.60 0.50 - 0.96 mg/dL [facility] eGFR by Cystatin C 129 > OR = 60 mL/min/1. 73m2 [facility] BUN/Creatinine Ratio SEE NOTE: (calc) [facility] Comment: ?? Not Reported: BUN and Creatinine are within ?? reference range. ? Sodium 140 135 - 146 mmol/L [facility] Potassium 4.3 3.5 - 5.3 mmol/L [facility] Chloride 109 98 - 110 mmol/L [facility] CO2 24 20 - 32 mmol/L [facility] Calcium 8.8 8.6 - 10.2 mg/dL [facility] Protein Total 6.8 6.1 - 8.1 g/dL [facility] Albumin 3.9 3.6 - 5.1 g/dL [facility] Globulin Total 2.9 1.9 - 3.7 g/dL (calc) [facility] Albumin/Globulin Ratio 1.3 1.0 - 2.5 (calc) [facility] Bilirubin Total 2.1(H) 0.2 - 1.2 mg/dL [facility] Alkaline Phosphatase 130(H) 31 - 125 U/L [facility] AST 42(H) 10 - 30 U/L [facility] ALT 38(H) 6 - 29 U/L [facility] Comment: Test Performed at: [email or web address] ??[id number] NIGEL RUIZ MD 02/23/2023 12:0 4 PM SOLVENT PROCESS EXTRACTOR OPERATOR 02/23/2023 12:05 PM SOLVENT PROCESS EXTRACTOR OPERATOR Juan Landry MD LAB - CHEMISTRY ZHANEE MABLE [address] [address] * [place] INSERT INTRAUTERINE DEVICE (02/15/2023 2:52 PM CDT) Narrative Frida Sesay MD - 02/15/2023 2:52 PM CDT Frida Sesay MD ? 02/15/2023 ??2:53 PM IUD Insertion Patient desires ??IUD. ??I have counseled her regarding the risks, benefits, and side effects with emphasis on the possibility of unpredictable bleeding patterns. ?? She expresses understanding of the risks and requests to proceed with the procedure. ??All her questions were answered to her satisfaction, and she understands and agrees to appropriate follow up appointments. ??Written informed consent was obtained. Present form of contraception: ?? Urine test: ??negative Procedure Note: Speculum placed. Cervix prepped with betadine and grasped with a tenaculum after infiltrating 1 ml lidocaine. Paracervical block performed with total of 10 ml. ??The uterus was sounded to 8.5 cm. Mirena IUD inserted easily. ??Strings cut to 1 cm, short per patient's request. ??Tenaculum removed and good hemostasis noted. ?? Patient tolerated the procedure well. Patient instructed to follow-up in 4 weeks and to use a back-up form of contraception until then. ??Instructed to call with heavy bleeding, or severe lower abdominal pain with fever. Frida Sesay MD Frida Sesay MD PROCEDURE/MINOR HAYDEN RGICAL ORDERABLES * HCG URINE QUALITATIVE - POCT (IP) [facility] (02/15/2023 2:30 PM CDT) Pathologist [facility] Test Urine Negative Negative [facility] [address] Urine URINE / Unknown 02/15/2023 2 :30 PM CDT Frida Sesay MD LAB - POINT OF CAR E ORDERABLES [facility] [address] [place] [address], [facility] [phone] * (ABNORMAL) CBC W AUTO DIFFERENTIAL (12/06/2022 7:13 AM CDT) Only the most recent of189 resultswithin the time period is included. Pathologist [facility] WBC 8.9 4.4 - 10.7 x10E9/L 12/06/2022 8:02 AM CDT [facility] WBC Corrected 12/06/2022 8:02 AM CDT [facility] RBC 3.31(L) 3.80 - 5.20 x10E12/L 12/06/2022 8:02 AM CDT [facility] Hemoglobin 10.7(L) 12.0 - 15.6 gm/dL 12/06/2022 8:02 AM CDT [facility] Hematocrit 32.1(L) 35.9 - 45.5 % 12/06/2022 8:02 AM CDT [facility] MCV 97.0 80.7 - 98.3 fl 12/06/2022 8:02 AM CDT [facility] MCH 32.3 26.7 - 34.0 pg 12/06/2022 8:02 AM [facility] MCHC 33.3 30.8 - 35.9 gm/dL 12/06/2022 8:02 AM [facility] Platelet Count 103(L) 153 - 416 x10E9/L 12/06/2022 8:02 AM [facility] RDW-CV 15.2(H) 12.1 - 14.9 % 12/06/2022 8:02 AM [facility] MPV 11.0 9.4 - 12.9 fl 12/06/2022 8:02 AM [facility] Neutrophils % 70.5 44.0 - 73.0 % 12/06/2022 8:02 AM [facility] Lymphocytes % 15.8(L) 20.0 - 43.0 % 12/06/2022 8:02 AM [facility] Monocytes % 9.4 5.0 - 13.0 % 12/06/2022 8:02 AM [facility] Eosinophils % 3.1 0.0 - 6.0 % 12/06/2022 8:02 AM [facility] Basophils % 0.6 0.0 - 2.0 % 12/06/2022 8:02 AM [facility] Immature Granulocytes 0.6 0 - 1 % 12/06/2022 8:02 AM [facility] Neutrophil Absolute 6.28 2.01 - 7.14 x10E9/L 12/06/2022 8:02 AM [facility] Lymphocytes Absolute 1.41 1.07 - 3.94 x10E9/L 12/06/2022 8:02 AM [facility] Monocytes Absolute 0.84 0.26 - 1.07 x10E9/L 12/06/2022 8:02 AM [facility] Eosinophils Absolute 0.28 0 - 0.47 x10E9/L 12/06/2022 8:02 AM [facility] Basophils Absolute 0.05 0 - 0.08 x10E9/L 12/06/2022 8:02 AM [facility] Immature Granulocytes Absolute 0.05 0.00 - 0.06 x10E9/L 12/06/2022 8:02 AM CDT [facility] nRBC Auto 0 /100 WBC 12/06/2022 8:02 AM CDT [facility] Blood BLOOD SPECIMEN / Unknown Lab Venipuncture / Unknown 12/06/2022 7:13 AM CDT 12/06/2022 7:35 AM CDT Marcel Ram MD LAB - HEMATOLO GY ORDERABLES Performing Organization Address City/[facility] Co de Phone Number [facility] [address] [place] [address] * (ABNORMAL) BLOOD GASES CORD DANO (ISTAT) (12/05/2022 5:52 PM CDT) pH Cord Venous POCT 7.26(L) 7.28 - 7.40 pH 12/05/2022 6:03 PM CDT [facility] pCO2 Cord Venous POCT 45.2(H) 35 - 45 mm hg 12/05/2022 6:03 PM CDT [facility] pO2 Cord Venous POCT 29 22 - 33 mm hg 12/05/2022 6:03 PM CDT [facility] HCO3 Cord Arterial POCT 20.4(L) 22 - 24 mmol/L 12/05/2022 6:03 PM CDT [facility] BE Cord Venous POCT Calc -7(L) -6.4 - 1.6 mmol/L 12/05/2022 6:03 PM CDT [facility] TCO2 Cord Venous POCT 22 22 - 30 mmol/L 12/05/2022 6:03 PM CDT [facility] O2 Saturation % Cord Venous Calc POCT 46 % 12/05/2022 6:03 PM CDT [facility] Site CORD DANO 12/05/2022 6:03 PM CDT [facility] Sample iSTAT CORD DANO 12/05/2022 6:03 PM T [facility] Blood CORD BLOOD SPECIMEN / Unknown 12/05/2022 5:52 PM CDT 12/05/2022 6:03 PM CDT Marcel Ram MD LAB - POINT OF CARE ORDERABLES Performing Organization Address City/[facility] Co de Phone Number [facility] [address] [place] [address] * (ABNORMAL) BLOOD GASES CORD ART (ISTAT) (12/05/2022 5:48 PM CDT) pH Cord Arterial POCT 7.18(L) 7.20 - 7.34 pH 12/05/2022 6:03 PM CDT [facility] pCO2 Cord Arterial POCT 63.6(H) 45 - 55 mm hg 12/05/2022 6:03 PM CDT [facility] pO2 Cord Arterial POCT 20 12 - 25 mm hg 12/05/2022 6:03 PM CDT [facility] HCO3 Cord Arterial POCT 23.5 22 - 24 mmol/L 12/05/2022 6:03 PM CDT [facility] BE Cord Arterial POCT -7(L) -2.9 - 8.3 mmol/L 12/05/2022 6:03 PM CDT [facility] TCO2 Cord Arterial POCT 25 mmol/L 12/05/2022 6:03 PM CDT [facility] O2 Saturation Cord Art % Calc POCT 21 % 12/05/2022 6:03 PM CDT [facility] Site CORD ART 12/05/2022 6:03 PM CDT [facility] Sample iSTAT CORD ART 12/05/2022 6:03 PM CDT [facility] Blood CORD BLOOD SPECIMEN / Unknown 12/05/2022 5:48 PM CDT 12/05/2022 6:03 PM CDT Marcel aRm MD LAB - POINT OF CARE ORDERABLES [facility] [address] [place] [address] * EPIDURAL BLOCK PERF (12/05/2022 4:53 PM CDT) Narrative Angel Hua APRN-SWING TENDER - 12/05/2022 4:53 PM CDT Angel Hua APRN-SWING TENDER ? 12/05/2022 ??4:58 PM Neuraxial Block Note ?? Pre-Procedure: ?? Procedure Name: ??Neuraxial Block Patient Location: ??OB Indications: ??at patient's request and labor analgesia Pre-Anesthetic Checklist: ??Patient identified, IV Checked, Risks and benefits discussed, Surgical consent verified, Monitors and equipment, Site examined, Pre-op evaluation done, Time-out performed, Informed consent obtained, Questions answered/anesthesia questions answered and Allergies reviewed Anticoagulation/ Anti-thrombosis status confirmed? ??Yes Monitors: ??BP and continuous pluse ox Patient Condition: ??awake Patient Sedated? ??No Procedure: ?? Block Type: ??Epidural Prep: ??Betadine Sterile Field: ??mask, cap/hat, sterile established and sterile gloves Approach: ??midline Skin was localized? ??Yes Skin localized with: lidocaine (XYLOCAINE) 1 % injection - Infiltration 3 mL - 12/05/2022 4:43:00 PM Epidural Block: ?? Is this procedure for postop pain? ??No Needle Type: ??Tuohy Needle gauge: ??18 G Needle length: ??90 mm Placement Site: ??L2-L3 Number of Attempts: ??1 Loss of Resistance: ??7 Catheter threaded to (cm): ??5 Catheter length at skin (cm): ??12 CSF Aspirated from catheter: ??No Blood Aspirated: ??No Test Dose: ??lidocaine 1.5% with 1-200,000 epinephrine ??mL at ??12/05/2022 4:43 PM Test Dose Response: ??No Epidural Local Anesthetic Used? ??Yes Epidural Infusion Medications: ? Bupivacaine: ??0.75% with 0.9 mcg/mL NaCl, ?? 7 cc (mL) Degree of difficulty: ??none Procedure Tolerance: ??tolerated well Sensory Level: ??T8 Motor Blockade: ??Yes Position post procedure: ??left uterine displacement Vital Signs: ??Vital signs monitored and stable throughout. ??See anesthesia record for details., Vital signs moniitored and stable throughout. ??See nursing vitals flowsheet for details., heart tones monitored and stable throughout. Start Time: ??12/05/2022 4:38 PM End Time: ??12/05/2022 4:43 PM Total Time: ??5 Staff: ?? Anesthesia Provider: ??Kalyani Ramirez MD Provider #1: ??Angel Hua V., DREDGE OPERATOR-SWING TENDER ?? - ??performed the procedure Additional Notes: ??Pt with persistant low abd pain . Epidural replaced Kalyani Ramirez MD GENERAL ANESTHESIA O RDERABLES * SYPHILIS ANTIBODY CASCADING REFLEX (12/05/2022 6:18 AM CDT) Only the most recent of2 resultswithin the time period is included. Treponema pallidum Antibody Non Reactive Non Reactive 12/05/2022 7:27 AM CDT [facility] Comment: No Laboratory evidence of syphilis infection. ?? Note: ??Circulating antibodies may be low or undetectable in early infection. ??If recent exposure is suspected, re-draw sample in 2-4 weeks and repeat testing. Blood BLOOD SPECIMEN / Unknown Venipuncture / Unknown 12/05/2022 6:18 AM CDT 12/05/2022 6:29 AM CDT Marcel Ram MD LAB - SEROLOGY ORDERABLES Performing Organization Address [facility] Co de Phone Number [facility] [address] [place] [phone] * RPR W REFLEX TO TITER (MONITOR) (12/05/2022 6:18 AM CDT) Only the most recent of2 resultswithin the time period is included. RPR Monitor Nonreactive Nonreactive 12/05/2022 11:04 AM CDT [facility] Blood BLOOD SPECIMEN / Unknown Venipuncture / Unknown 12/05/2022 6:18 AM CDT 12/05/2022 6:30 AM CDT Marcel Ram MD LAB - CHEMISTR Y ORDERABLES Performing Organization Address [facility] de Phone Number [facility] [address] [place] [phone] * TYPE + SCREEN PANEL (12/05/2022 6:18 AM CDT) Only the most recent of12 resultswithin the time period is included. ABO Rh O POS 12/05/2022 7:05 AM CDT [facility] Comment:History checked. Antibody Screen NEG 7:05 AM CDT [facility] Blood Bank BLOOD SPECIMEN / Unknown Venipuncture / Unknown 12/05/2022 6:18 AM CDT 12/05/2022 6:29 AM CDT Marcel Ram MD LAB - BLOOD BA NK ORDERABLES Performing Organization Address [facility] Co de Phone Number [facility] [address] [place] [address] * (ABNORMAL) URINE MICROSCOPIC ONLY REFLEX TO CULTURE (12/05/2022 5:24 AM CDT) Only the most recent of2 resultswithin the time period is included. Reflex Status Culture not indicated 12/05/2022 5:44 AM CDT [facility] RBC UA 6-10(A) 0 - 5 # /hpf 12/05/2022 5:44 AM CDT [facility] WBC UA 0-5 0 - 5 # /hpf 12/05/2022 5:44 AM CDT [facility] Bacteria UA None Seen None Seen 12/05/2022 5:44 AM CDT [facility] Squamous Epithelial Cells 3-5 0 - 5 /hpf 12/05/2022 5:44 AM CDT [facility] Mucus UA 1+ /LPF 12/05/2022 5:44 AM CDT [facility] Urine URINE SPECIMEN OBTAINED BY CLEAN CATCH PROCEDURE / Unknown Collection / Unknown 12/05/2022 5:24 AM CDT 12/05/2022 5:30 AM CDT Narrative [facility] - 12/05/2022 5:44 AM CDT Marcel Ram MD LAB - URINALYS IS ORDERABLES Performing Organization Address [facility] Co de Phone Number [facility] [address] [place] [phone] * (ABNORMAL) URINALYSIS REFLEX MICROSCOPIC REFLEX CULTURE (12/05/2022 5:24 AM CDT) Only the most recent of10 resultswithin the time period is included. Color UA Yellow Straw, Yellow 12/05/2022 5:43 AM CDT [facility] Clarity UA Clear Clear 12/05/2022 5:43 AM CDT [facility] Glucose UA Negative Negative 12/05/2022 5:43 AM CDT [facility] Bilirubin UA Negative Negative 12/05/2022 5:43 AM CDT [facility] Ketone UA Negative Negative 12/05/2022 5:43 AM CDT [facility] Specific [place] UA 1.011 1.005 - 1.030 12/05/2022 5:43 AM CDT [facility] Blood UA 2+(A) Negative 12/05/2022 5:43 AM CDT [facility] pH UA 7.0 5.0 - 8.0 pH 12/05/2022 5:43 AM CDT [facility] Protein UA Negative Negative 12/05/2022 5:43 AM CDT [facility] Urobilinogen UA 2.0(A) Negative mg/dL 12/05/2022 5:43 AM CDT [facility] Nitrite UA Negative Negative 12/05/2022 5:43 AM CDT [facility] Leukocyte UA Negative Negative 12/05/2022 5:43 AM CDT [facility] Urine Microscopy Urine microscopy to follow 12/05/2022 5:43 AM CDT [facility] Reflex Status Culture not indicated 12/05/2022 5:43 AM CDT [facility] Urine URINE SPECIMEN OBTAINED BY CLEAN CATCH PROCEDURE / Unknown Collection / Unknown 12/05/2022 5:24 AM CDT 12/05/2022 5:30 AM CDT Narrative [facility] - 12/05/2022 5:43 AM CDT Marcel Ram MD LAB - URINALYS IS ORDERABLES [facility] [address] [place] [address] * (ABNORMAL) RUPTURE OF MEMBRANES EVAL (12/05/2022 5:21 AM CDT) RUPTURE OF MEMBRANES POSITIVE(A ) NEGATIVE 12/05/2022 5:45 AM CDT [facility] Fluid VAGINAL SWAB / Unknown Collection / Unknown 12/05/2022 5:21 AM CDT 12/05/2022 5:29 AM CDT Narrative [facility] - 12/05/2022 5:45 AM CDT A rupture of membranes diagnosis should not be based on any single test and the results should be interpreted in conjunction with other clinical information. This test may report positive results in patients with intact membranes and therefore decisions to induce labor should not be based solely on the ROM Plus test results. ROM Plus test kits will function properly with trace amounts of blood in the sample. Significant amounts of bloody discharge may cause the test to malfunction and testing of these samples is not recommended. Elevated serum, urine, cord blood, and amniotic fluid as well as maternal serum levels of AFP have been reported in the literature in various developmental disorders such as neural-tube defects, hypothyroidism, autoimmune states, congenital heart defects, cystic fibrosis, etc. ROM Plus has not been evaluated for potential interference in these conditions. Pearl Rocha MD LAB - BODY FLUID OR DERABLES [facility] [address] [place] [phone] * NONSTRESS TEST (12/04/2022 1:13 AM CDT) Narrative Marcel Ram MD - 12/04/2022 1:13 AM CDT Anton Storey MD ? 12/04/2022 ??1:42 AM Name: ??Lili Aguila Date of : ??2000 Today's Date: ??12/04/2022 36w4d ?NST RESULTS (VÁZQUEZ) OBJECTIVE FINDINGS Temp: 98.2 ??F (36.8 ??C), ??, Resp: 18, BP: 106/57 NST Indication(s): labor Uterine Irritability: Yes Contractions: Irregular Frequency: 5-8 Duration (sec) Range: 60-90 Perceived Intensity: Mild OBJECTIVE FINDINGS Movement: Present Monitoring Mode: External Baseline: 125 BPM Variability: Moderate Decelerations: None Accelerations: Yes OTHER INFORMATION Britni Ramon Non-Stress Test [facility] Patient Name: Lili Aguila LMP: Patient's last menstrual period was 12/23/2020 (approximate). Gestational Age: 36w4d as of 12/04/2022 Estimated Date of Delivery: 12/28/22 Indications: contractions NST date: 12/04/2022 NST duration: >20 mins Interpretation: Baseline: ??125 beats/minute moderate variability Reactive Contractions: ??irregular Decelerations: variable Impression and Plan: FWB reassuring, continue monitoring as scheduled. Anton Storey MD 12/04/2022 1:41 AM Marcel Ram MD OB GYNE ORDERA BLES * [place] BIOPHYSICAL PROFILE, [place] OB US, LIMITED, FETUS(S), BIOPHYSICAL PROFILE W NST (12/02/2022 8:54 AM CDT) Anatomical Region Laterality Modality Other Narrative 12/02/2022 8:54 AM CDT Darlene Zimmerman ? 12/02/2022 ??8:55 AM Documentation in digisonics Marcel Ram MD [facility] ORDERABLES * URINALYSIS - POINT OF CARE (AMB) [facility] (12/02/2022) Only the most recent of14 resultswithin the time period is included. Specific [place] UA 1.015 pH UA 6 WBC UA n Nitrite UA n Protein UA n Glucose UA n Ketones UA POCT n Urobilinogen UA n Bilirubin UA POCT n Blood Urine POCT n Urine URINE / Unknown 12/02/2022 Mariama Mendoza MD LAB - P OINT OF CARE ORDERABLES * IMAGING RADIOLOGY XRAY RESULTS ORDER (12/02/2022) Only the most recent of29 resultswithin the time period is included. Anatomical Region Laterality Modality Other Narrative 12/02/2022 Ordered by an unspecified provider. Scanned Document IMAGING * NONSTRESS TEST (11/30/2022 4:33 AM CDT) Narrative Mariama Mendoza MD - 11/30/2022 4:33 AM CDT Anton Storey MD ? 11/30/2022 ??4:45 AM Name: ??Lili Aguila Date of : ??2000 Today's Date: ??11/30/2022 36w0d ?NST RESULTS (VÁZQUEZ) OBJECTIVE FINDINGS Temp: 98 ??F (36.7 ??C), ??, Resp: 18, BP: 90/54 NST Indication(s): ??(contractions) Uterine Irritability: Yes Contractions: Irregular Duration (sec) Range: 60-90 Perceived Intensity: Mild OBJECTIVE FINDINGS Movement: Present Monitoring Mode: External Baseline: 130 BPM Variability: Moderate Decelerations: None Accelerations: Yes OTHER INFORMATION Ave Moon RN Non-Stress Test [facility] Patient Name: Lili Aguila LMP: Patient's last menstrual period was 12/23/2020 (approximate). Gestational Age: 36w0d as of 11/30/2022 Estimated Date of Delivery: 12/28/22 Indications: contractions NST date: 11/30/2022 NST duration: >20 mins Interpretation: Baseline: ??130 beats/minute moderate variability Reactive Contractions: ??irregular Decelerations: ??none Impression and Plan: FWB reassuring, continue monitoring as scheduled. Anton Storey MD 11/30/2022 4:44 AM Mariama Holt Chilton MD OB GYNE ORDERABLES * CULTURE STREP B (11/25/2022 12:45 PM CDT) Only the most recent of2 resultswithin the time period is included. Culture [facility] Comment: ??STREPTOCOCCUS, GROUP B CULTURE ?Micro Number: ?[id number] ??Test Status: ? Final ??Specimen Source: ?? Anorectum/vagina ??Specimen Quality: ??Adequate ??Result: ?No group B Streptococcus isolated ? Note per CDC guidelines optimal recovery is ? achieved by swabbing both the lower vagina and ? rectum (through the anal sphincter). Test Performed at: [email or web address] ??[id number] NIGEL RUIZ MD Microbiology MISCELLANEOUS SAMPLES / Unknown 11/25/2022 12:45 PM CDT 11/26/2022 1:50 AM CDT Kecia Ana Luisa DREDGE OPERATOR-SUPPLY CHAIN SPECIALIST LAB - MICROBIO LOGY ORDERABLES [address] [address] * [place] OB US, LIMITED, FETUS(S), [place] BIOPHYSICAL PROFILE (11/25/2022 9:26 AM CDT) Narrative Darlene Zimmerman - 11/25/2022 9:26 AM CDT Darlene Zimmerman ? 11/25/2022 ??9:26 AM Documentation in digisonics Marcel Ram MD PROCEDURE/YOLANDA Lucy SURGICAL ORDERABLES * (ABNORMAL) BILE ACIDS FRACT+TOTAL, (11/20/2022 3:09 PM CDT) Only the most recent of6 resultswithin the time period is included. Cholic Acid 20.5(H) < OR = 2.8 umol/L [facility] Deoxycholic Acid <0.5 < OR = 2.3 umol/L [facility] Chenodeoxycholic Acid 13.0(H) < OR = 3.9 umol/L [facility] Total Bile Acids 33.6(H) < OR = 8.3 umol/L [facility] Comment: This test was developed and its analytical performance characteristics have been determined by [facility]. It has not been cleared or approved by FDA. This assay has been validated pursuant to the CLIA regulations and is used for clinical purposes. Test Performed at: [facility] [id number] ??[id number] DONG AVENDANO MD,PHD,ALLY Blood BLOOD SPECIMEN / Unknown 11/20/2022 3:09 PM CDT 11/20/2022 3:10 PM CDT Adelfo Champion MD LAB - CHEMISTRY STEPHON AKINS [facility] Organization Address City/State/ZIP Co de Phone Number [facility] [address] [address] * [place] DOPPLER VELOCIMETRY ; UMBILICAL ARTERY, [place] BIOPHYSICAL PROFILE, [place] SONO FU OR REPEAT (11/16/2022 2:37 PM CDT) Narrative Kinjal Polanco RDMS - 11/16/2022 2:37 PM CDT Kinjal Polanco RDMS ? 11/16/2022 ??2:37 PM Documentation in digisonics. Adelfo Champion MD PROCEDURE/MINOR SURG ICAL ORDERABLES * NONSTRESS TEST (11/11/2022 8:01 PM CDT) Narrative Taina Cason MD - 11/11/2022 8:01 PM CDT Azul Breaux MD ? 11/11/2022 ??8:14 PM Name: ??Lili Aguila Date of : ??2000 Today's Date: ??11/11/2022 33w2d ?NST RESULTS (VÁZQUEZ) OBJECTIVE FINDINGS Temp: 98.3 ??F (36.8 ??C), ??, Resp: 20, BP: 105/57 NST Indication(s): Decreased movement Uterine Irritability: No Contractions: Not present OBJECTIVE FINDINGS Movement: Present Monitoring Mode: External Baseline: 140 BPM Variability: Moderate Decelerations: None Accelerations: Yes OTHER INFORMATION Manasa De Leon RN Non-Stress Test [facility] Patient Name: Lili Aguila LMP: Patient's last menstrual period was 12/23/2020 (approximate). Gestational Age: 33w2d as of 11/11/2022 Estimated Date of Delivery: 12/28/22 Indications: Decreased Movement NST date: 11/11/2022 NST duration: >20 mins Interpretation: Baseline: ??140 beats/minute moderate variability Reactive Contractions: ??none Decelerations: ??none Impression and Plan: FWB reassuring, continue monitoring as scheduled. Azul Miranda MD 11/11/2022 8:14 PM Taina Cason MD OB GYNE ORDERABLES * [place] OB US, LIMITED, FETUS(S), [place] BIOPHYSICAL PROFILE (11/10/2022 4:52 PM CDT) Narrative Kinjal Polanco, RDMS - 11/10/2022 4:52 PM CDT Kinjal Polanco, RDMS ? 11/10/2022 ??4:53 PM Documentation in digisonics. Rosemary Carroll MD PROCEDURE/YOLANDA R SURGICAL ORDERABLES * (ABNORMAL) BILE ACIDS FRACT+TOTAL LC-MS/MS (11/07/2022 12:18 PM CDT) Cholic Acid 12.3(H) < OR = 1.8 umol/L [facility] Deoxycholic Acid <0.5 < OR = 2.4 umol/L [facility] Chenodeoxycholic Acid 6.8(H) < OR = 3.1 umol/L [facility] Total Bile Acids 19.0(H) < OR = 6.8 umol/L [facility] Comment: This test was developed and its analytical performance characteristics have been determined by [facility]. It has not been cleared or approved by FDA. This assay has been validated pursuant to the CLIA regulations and is used for clinical purposes. Test Performed at: [facility] [address] [place], [place] ??[phone] DONG AVENDANO MD,PHD,ALLY 11/07/2022 12:1 8 PM CDT 11/07/2022 12:18 PM CDT Juan Landry MD LAB - CHEMISTRY STEPHON AKINS [facility] Organization Address City/State/ZIP Co de Phone Number [facility] [address] [place] [address] * GGT (11/07/2022 12:18 PM CDT) Only the most recent of165 resultswithin the time period is included. GGT 7 3 - 40 U/L [facility] Comment: Test Performed at: [facility] ??[phone] NIGEL RUIZ MD 11/07/2022 12:1 8 PM CDT 11/07/2022 12:18 PM CDT Juan Landry MD LAB - CHEMISTRY STEPHON AKINS [address] [address] * [place] OB US, LIMITED, FETUS(S), [place] BIOPHYSICAL PROFILE (11/03/2022 2:28 PM CDT) Narrative Jesus Donato RDMS - 11/03/2022 2:28 PM CDT Jesus Donato RDMS ? 11/03/2022 ??2:28 PM Documentation in digisonics. Mariama Mendoza MD PROCEDU RE/MINOR SURGICAL ORDERABLES * NONSTRESS TEST (10/31/2022 7:52 AM CDT) Narrative Max De León DO - 10/31/2022 7:52 AM CDT Radha Fraser MD ? 10/31/2022 ??8:47 PM Name: ??Lili Aguila Date of : ??2000 Today's Date: ??10/31/2022 31w5d ?NST RESULTS (VÁZQUEZ) OBJECTIVE FINDINGS Temp: 98.1 ??F (36.7 ??C), ??, Resp: 18, BP: 122/69 NST Indication(s): labor Uterine Irritability: No Contractions: Not present OBJECTIVE FINDINGS Movement: Present Monitoring Mode: External Baseline: 125 BPM Variability: Moderate Decelerations: None Accelerations: Yes OTHER INFORMATION Collette Chapman RN Non-Stress Test [facility] Patient Name: Lili Aguila LMP: Patient's last menstrual period was 12/23/2020 (approximate). Gestational Age: 31w5d as of 10/31/2022 Estimated Date of Delivery: 12/28/22 Indications: contractions NST date: 10/31/2022 NST duration: >20 mins Interpretation: ??Baseline: ??125 beats/minute moderate variability Reactive Contractions: ??none Decelerations: ??none Impression and Plan: FWB reassuring, continue care as scheduled. Su Patiño DO 10/31/2022 5:13 PM Max De León DO OB GYNE ORDERABLES * CHLAMYDIA + GC AMPLIFIED PROBE (10/31/2022 6:43 AM CDT) Only the most recent of5 resultswithin the time period is included. Chlamydia Amplified Probe Negative Negative 10/31/2022 10:35 PM CDT [facility] GC Amplified Probe Negative Negative 10/31/2022 10:35 PM CDT [facility] Microbiology PART OF UTERINE CERVIX / Unknown Collection / Unknown 10/31/2022 6:43 AM CDT 10/31/2022 6:52 AM CDT Narrative [facility] - 10/31/2022 10:35 PM CDT Results based on detection/no detection of ribosomal RNA by amplified method. Max De León DO LAB - MICROBIOLOGY O RAPHAEL Performing Organization Address City/[facility]/ZIP Co de Phone Number [facility] [address] [place] [address], [facility] [phone] * TRICHOMONAS RAPID TEST (10/31/2022 6:43 AM CDT) Only the most recent of5 resultswithin the time period is included. Trichomonas Rapid Test Negative Negative 10/31/2022 7:07 AM CDT [facility] Microbiology VAGINAL SWAB / Unknown Collection / Unknown 10/31/2022 6:43 AM CDT 10/31/2022 6:51 AM CDT Max De León DO LAB - MICROBIOLOGY O RAPHAEL [facility] [address] [place] [address] * ECHO COMPLETE (10/22/2022 11:48 AM CDT) MV E PEAK VELOCITY 42.48 cm/s [facility] CV FUJI PACS MV E PEAK VELOCITY 42.48 cm/s [facility] CV FUJI PACS MV A pk david 49.41 cm/s [facility] CV F UJI PACS MV A pk david 49.41 cm/s [facility] CV F UJI PACS PV pk david 63.719 cm/s [facility] CV FUJ I PACS Anatomical Region Laterality Modality Ultrasound 10/22/2022 10:4 5 AM CDT Narrative 10/22/2022 12:29 PM CDT Name: ? Lili Aguila Patient ??Exam Info Gender: ? Female Accession #: ? [id number] Patient Status: ? O/P : ? 2000 Admit Date: ? 10/22/2022 Exam Date/Time: ? 10/22/2022 10:45 AM Site: ? [facility] Staff Ordering Provider: ? Kecia Orosco [employer] Plant Supervisor: ? Belkys Daniels RD - FE Study Info Procedure: ? ECHO COMPLETE Indications: ?O28.3 - Abnormal ultrasound Maternal Gestational Status GA by EDC: ? 30 wks , 3 days EDC: ? 12/28/2022 Type: ? Vázquez Age: ? 22 yrs Lie: ? 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 ??* Normal biventricular systolic function. Anatomic Relationships ??Left sided cardiac apex (levocardia). There is normal visceral-cardiac situs, and normal segmental cardiac anatomical relationship. Systemic Veins ??There is normal systemic venous return. Pulmonary Veins ??The visualized pulmonary veins drain normally to the left atrium. Right Atrium ??The right atrial size is normal. Left Atrium ??The left atrial size is normal. Atrial Septum ??Patent foramen ovale with open foramen flap. Color flow is right to left. Right Ventricle ??The right ventricular cavity size is normal. The right ventricular wall thickness is normal. The right ventricular systolic function is normal. RV Outflow Tract ??The right ventricular outflow tract is normal. Left Ventricle ??The left ventricular cavity size is normal. The left ventricular wall thickness is normal. The left ventricular systolic function is normal. Ventricular Septum ??There is a very small muscular ventricular septal defect with bidirectional shunting. LV Outflow Tract ??The left ventricular outflow tract is normal. Tricuspid Valve ??The tricuspid valve is structurally normal. The tricuspid inflow pattern is normal. Tricuspid velocity is within the normal range. There is no tricuspid regurgitation. Mitral Valve ??The mitral valve is structurally normal. The mitral inflow pattern is normal. Mitral velocity is within the normal range. There is no mitral regurgitation. Aorta ?? aortic arch visualized and is without obstruction by 2D, color flow and Doppler. Pulmonary Arteries ??The main pulmonary artery is normal, with confluent branch pulmonary arteries. Ductus Arteriosus ??The antegrade flow velocity and pattern in the ductal arch is normal. A normal ductus arteriosus is appreciated. Doppler ??Flow in the ductus venosus is normal. The umbilical vein flow pattern is normal. The umbilical artery flow pattern is normal. Hydrops Assessment ??No pericardial effusion. No ascites present. No pleural effusion(s). Rhythm ??The rhythm is normal. There is 1:1 AV conduction. Pulmonary Valve ??The pulmonic valve exhibits normal leaflet mobility. The transpulmonic velocity is within normal range. There is no pulmonic regurgitation. Aortic Valve ??The aortic valve exhibits normal leaflet mobility. The transaortic velocity is within normal range. There is no aortic regurgitation. Doppler Measurements (Fetus A) Atrioventricular Valves Name ? Value ?Normal ??Z-Score Percentile Atrioventricular Valves Doppler TV E Peak Velocity ? 0.4 m/s ? TV A Peak Velocity ? 0.6 m/s ? MV E Peak Velocity ? 0.4 m/s ? MV A Peak Velocity ? 0.5 m/s (Fetus A) Semilunar Valves Name ? Value ?Normal ??Z-Score Percentile Semilunar Valves Doppler PV Peak Velocity ? 0.6 m/s ? AV Peak Velocity () ? 0.9 m/s (Fetus A) Heart Rate Name ? Value ?Normal ??Z-Score Percentile Heart Rate HR ? 133 bpm Report Signatures Finalized by Jyoti Schuster ?? on 10/22/2022 12:29 PM Procedure Note Jyoti Schuster MD - 10/22/2022 Name: Lili Aguila Patient Exam Info Gender: Female Patient Status: O/P : 2000 Admit Date: 10/22/2022 Exam Date/Time: 10/22/2022 10:45 AM Site: [facility] Staff Ordering Provider: Kecia Orosco [employer] Supervisor: Belkys Daniels [facility] Study Info Procedure: ECHO COMPLETE Indications: O28.3 - Abnormal ultrasound Maternal Gestational Status GA by EDC: 30 wks , 3 days EDC: 12/28/2022 Type: Vázquez Age: 22 yrs Lie: Vertex Summary * There is a very small muscular ventricular septal defect with bidirectional shunting. * Normal biventricular systolic function. Anatomic Relationships Left sided cardiac apex (levocardia). There is normal visceral-cardiac situs, and normal segmental cardiac anatomical relationship. Systemic Veins There is normal systemic venous return. Pulmonary Veins The visualized pulmonary veins drain normally to the left atrium. Right Atrium The right atrial size is normal. Left Atrium The left atrial size is normal. Atrial Septum Patent foramen ovale with open foramen flap. Color flow is right toleft. Right Ventricle The right ventricular cavity size is normal. The right ventricularwall thickness is normal. The right ventricular systolic function is normal. RV Outflow Tract The right ventricular outflow tract is normal. Left Ventricle The left ventricular cavity size is normal. The left ventricular wall thickness is normal. The left ventricular systolic function is normal. Ventricular Septum There is a very small muscular ventricular septal defect withbidirectional shunting. LV Outflow Tract The left ventricular outflow tract is normal. Tricuspid Valve The tricuspid valve is structurally normal. The tricuspid inflow patternis normal. Tricuspid velocity is within the normal range. There is notricuspid regurgitation. Mitral Valve The mitral valve is structurally normal. The mitral inflow pattern is normal. Mitral velocity is within the normal range. There is no mitral regurgitation. Aorta aortic arch visualized and is without obstruction by 2D, colorflow and Doppler. Pulmonary Arteries The main pulmonary artery is normal, with confluent branch pulmonary arteries. Ductus Arteriosus The antegrade flow velocity and pattern in the ductal arch is normal.A normal ductus arteriosus is appreciated. Doppler Flow in the ductus venosus is normal. The umbilical vein flow patternis normal. The umbilical artery flow pattern is normal. Hydrops Assessment No pericardial effusion. No ascites present. No pleural effusion(s). Rhythm The rhythm is normal. There is 1:1 AV conduction. Pulmonary Valve The pulmonic valve exhibits normal leaflet mobility. The transpulmonic velocity is within normal range. There is no pulmonic regurgitation. Aortic Valve The aortic valve exhibits normal leaflet mobility. The transaorticvelocity is within normal range. There is no aortic regurgitation. Doppler Measurements (Fetus A) Atrioventricular Valves Name Value Normal Z-ScorePercentile Atrioventricular Valves Doppler TV E Peak Velocity 0.4 m/s TV A Peak Velocity 0.6 m/s MV E Peak Velocity 0.4 m/s MV A Peak Velocity 0.5 m/s (Fetus A) Semilunar Valves Name Value Normal Z-ScorePercentile Semilunar Valves Doppler PV Peak Velocity 0.6 m/s AV Peak Velocity () 0.9 m/s (Fetus A) Heart Rate Name Value Normal Z-ScorePercentile Heart Rate HR 133 bpm Report Signatures Finalized by Jyoti Schuster MD on 10/22/2022 12:29 PM Kecia Orosco APRN-SUPPLY CHAIN SPECIALIST ECHO CUPID * NONSTRESS TEST (10/22/2022 2:54 AM CDT) Narrative Max De León DO - 10/22/2022 2:54 AM CDT Azul Breaux MD ? 10/22/2022 ??6:20 PM Name: ??Lili Aguila Date of : ??2000 Today's Date: ??10/22/2022 30w3d ?NST RESULTS (VÁZQUEZ) OBJECTIVE FINDINGS , ??, ??, BP: 94/55 (Simultaneous filing. User may not have seen previous data.) NST Indication(s): Other (Comment) (s/p fall) Uterine Irritability: No Contractions: Not present OBJECTIVE FINDINGS Movement: Present Monitoring Mode: External Baseline: 125 BPM Variability: Moderate Decelerations: None Accelerations: Yes OTHER INFORMATION Britni Ramon Non-Stress Test [facility] Patient Name: Lili Aguila LMP: Patient's last menstrual period was 12/23/2020 (approximate). Gestational Age: 30w3d as of 10/22/2022 Estimated Date of Delivery: 12/28/22 Indications: Abdominal pain in NST date: 10/22/2022 NST duration: >20 mins Interpretation: Assessment/ Non-Stress Test ?Baseline: ??125 beats/minute moderate variability ?Reactive ?Contractions: ??none ?Decelerations: ??none Impression and Plan: FWB reassuring, continue monitoring as scheduled. Azul Breaux MD 10/22/2022 6:19 PM Max De León DO OB GYNE ORDERABLES * FL SONO FU OR REPEAT (10/19/2022 1:00 PM CDT) Narrative Jesus Donato RDMS - 10/19/2022 1:00 PM CDT Jesus Donato RDMS ? 10/19/2022 ??1:00 PM Documentation in digisonics. Kecia Orosco DREDGE OPERATOR-SUPPLY CHAIN SPECIALIST PROCEDURE/YOLANDA R SURGICAL ORDERABLES * TSH+FREE T4 PANEL (10/16/2022 12:15 PM CDT) TSH 1.92 mIU/L [facility] Comment: ?Reference Range ?> or = 20 Years ??0.40-4.50 ? Ranges ?First trimester ?0.26-2.66 ?Second trimester ?? 0.55-2.73 ?Third trimester ?0.43-2.91 T4 Free 0.9 0.8 - 1.8 ng/dL [facility] Comment: Test Performed at: [facility] [address] [place], [place] ??[phone] NIGEL RUIZ MD Blood BLOOD SPECIMEN / Unknown 10/16/2022 12:15 PM CDT 10/16/2022 12:17 PM CDT Kecia Orosco APRN-SUPPLY CHAIN SPECIALIST LAB - CHEMISTR Y ORDERABLES Performing Organization Address [facility] de Phone Number [facility] [address] [place] [address] * IRON + TIBC + FERRITIN (10/16/2022 12:15 PM CDT) Only the most recent of3 resultswithin the time period is included. Iron 101 40 - 190 mcg/dL [facility] TIBC 397 250 - 450 mcg/dL (calc) [facility] % Saturation 25 16 - 45 % (calc) [facility] Ferritin 35 16 - 154 ng/mL [facility] Comment: Test Performed at: [facility] [address] [place] ??[phone] NIGEL RUIZ MD 10/16/2022 12:1 5 PM CDT 10/16/2022 12:17 PM CDT Kecia Orosco DREDGE OPERATOR-SUPPLY CHAIN SPECIALIST LAB - CHEMISTR Y ORDERABLES Performing Organization Address [facility]/State/ZIP Co de Phone Number [facility] [address] [place] [address] * [place] DOPPLER COLOR FLOW VELOCITY MAP, [place] SONO FU OR REPEAT (09/24/2022 10:38 AM CDT) Narrative Nafisa Singh - 09/24/2022 10:38 AM CDT Nafisa Singh ? 09/24/2022 10:38 AM Documentation in digisonics. Kecia Ana Luisa DREDGE OPERATOR-SUPPLY CHAIN SPECIALIST PROCEDURE/YOLANDA R SURGICAL ORDERABLES * HEPATITIS C AB W/RFLX TO HCV RNA QN PCR (09/24/2022) Hepatitis C Antibody NON-REACTI VE NON-REACT DAMON [facility] Signal to Cut-Off 0.16 <1.00 [facility] Comment: HCV antibody was non-reactive. There is no laboratory evidence of HCV infection. In most cases, no further action is required. However, if recent HCV exposure is suspected, a test for HCV RNA (test code 79109) is suggested. For additional information please refer to http://education.Neutral Space/faq/BAY63p0 (This link is being provided for informational/ educational purposes only.) Test Performed at: [employer] [place] ??[phone] NIGEL RUIZ MD Blood BLOOD SPECIMEN / Unknown 09/24/2022 09/24/2022 10:57 AM CDT Kecia[employer]bin [employer] ESCALONA-SUPPLY CHAIN SPECIALIST LAB - CHEMISTR Y ORDERABLES [facility] [address] [place] [address] * GTT 1 HR (50G) GESTATIONAL SCREEN (09/24/2022) Only the most recent of2 resultswithin the time period is included. Glucose Gestational Screen 125 <140 mg/dL [facility] Comment: Test Performed at: [employer] [address] [address] [facility] [place] [place] ??[phone] NIGEL RUIZ MD Blood BLOOD SPECIMEN / Unknown 09/24/2022 09/24/2022 10:57 AM CDT Kecia Orosco DREDGE OPERATOR-SUPPLY CHAIN SPECIALIST LAB - CHEMISTR Y ORDERABLES Performing Organization Address [facility] Co de Phone Number [facility] [address] [place] [address] * HIV-1 HIV-2 ANTIBODY + HIV P24 AG PANEL (09/24/2022) Only the most recent of4 resultswithin the time period is included. [facility] HIV Screen 4th Generation w Reflex NON-REACT DAMON NON-REACT DAMON [employer] Comment: HIV-1 antigen and HIV-1/HIV-2 antibodies were not detected. There is no laboratory evidence of HIV infection. PLEASE NOTE: This information has been disclosed to you from records whose confidentiality may be protected by state law. ??If your state requires such protection, then the state law prohibits you from making any further disclosure of the information without the specific written consent of the person to whom it pertains, or as otherwise permitted by law. A general authorization for the release of medical or other information is NOT sufficient for this purpose. ?? For additional information please refer to http://education.Neutral Space/faq/RHV290 (This link is being provided for informational/ educational purposes only.) The performance of this assay has not been clinically validated in patients less than 2 years old. Test Performed at: [facility] [id number] [place] [address] ??[phone] NIGEL RUIZ MD Blood BLOOD SPECIMEN / Unknown 09/24/2022 09/24/2022 10:57 AM CDT Kecia Orosco DREDGE OPERATOR-SUPPLY CHAIN SPECIALIST LAB - CHEMISTR Y ORDERABLES Performing Organization Address [facility] Co de Phone Number [facility] [address] [place] [address] * TREPONEMA PALLIDUM POS REFLX RPR (09/24/2022) [facility] Treponema pallidum Antibody EIA NEGATIVE NEGATIVE [employer] Comment: No antibodies to T. pallidum (the agent causing syphilis) were detected in the specimen. This result, however, does not exclude very recent T. pallidum infection; testing of a second specimen, collected 2-4 weeks after this specimen, is recommended if the index of suspicion for recent infection is high. REPORT COMMENT: FASTING:NO COLLECTION REQUIREMENTS NOT MET. PATIENT ADVISED TO RETURN. Test Performed at: [facility] [address] ??[phone] ANGEL LEVIN Blood BLOOD SPECIMEN / Unknown 09/24/2022 09/24/2022 10:57 AM CDT Kecia Orosco DREDGE OPERATOR-SUPPLY CHAIN SPECIALIST LAB - SEROLOGY ORDERABLES [employer] [address] [place] [address] * NONSTRESS TEST (09/19/2022 3:57 AM CDT) Narrative Adelfo Champion MD - 09/19/2022 3:57 AM CDT Simran Aquino MD ? 09/19/2022 ??4:45 PM Name: ??Lili Aguila Date of : ??2000 Today's Date: ??09/19/2022 25w5d ?NST RESULTS (VÁZQUEZ) OBJECTIVE FINDINGS Temp: 98.3 ??F (36.8 ??C), ??, Resp: 16, BP: 91/55 NST Indication(s): labor Uterine Irritability: No Contractions: Not present OBJECTIVE FINDINGS Movement: Present Monitoring Mode: External Baseline: 140 BPM Variability: Moderate Decelerations: None Accelerations: Yes OTHER INFORMATION Ave Moon, RN Non-Stress Test Indications: Patient Active Problem List: ?? History of liver transplant (CMS/HCC) ?? History of hepatocellular carcinoma ?? Influenza ?? Abdominal pain, unspecified abdominal location Interpretation: Baseline: ??140 beats/minute moderate variability Reactive Contractions: ??none Decelerations: ??none FWB reassuring, continue monitoring as scheduled. Simran Aquino MD 09/19/2022 4:45 PM Adelfo Champion MD OB GYNE ORDERABLES * FL ULTRASND,PREG UTER,TRANSVAGIN, [place] SONO FU OR REPEAT (08/25/2022 2:54 PM CDT) Narrative Nafisa Singh - 08/25/2022 2:54 PM CDT Nafisa Singh ? 08/25/2022 ??2:55 PM Documentation in digisonics. Mariama Mendoza MD PROCEDU RE/MINOR SURGICAL ORDERABLES * FL ULTRASND,PREG UTER,TRANSVAGIN, [place] ULTRASND,PREG UTERUS,IMAGE DOC (07/28/2022 3:30 PM CDT) Narrative Darlene Zimmerman - 07/28/2022 3:30 PM CDT Darlene Zimmerman ? 07/28/2022 ??3:30 PM Documentation in digisonics Mariama Mendoza MD PROCEDU RE/MINOR SURGICAL ORDERABLES * (ABNORMAL) PROFILE I W/ HBSAG (07/23/2022 11:20 AM CDT) Only the most recent of2 resultswithin the time period is included. White Blood Cell Count 7.9 3.8 - 10.8 Thousand /uL [facility] RBC 3.12(L) 3.80 - 5.10 Million/ uL [facility] Hemoglobin 10.2(L) 11.7 - 15.5 g/dL [facility] Hematocrit 29.5(L) 35.0 - 45.0 % [facility] MCV 94.6 80.0 - 100.0 fL [facility] MCH 32.7 27.0 - 33.0 pg [facility] MCHC 34.6 32.0 - 36.0 g/dL [facility] RDW 14.2 11.0 - 15.0 % [facility] Platelet Count 83(L) 140 - 400 Thousand /uL [facility] MPV 12.3 7.5 - 12.5 fL [facility] Neutrophil Absolute 6083 1500 - 7800 cells/uL [facility] Myelocytes Absolute 158(H) 0 cells/uL [facility] Lymphocytes Absolute 1106 850 - 3900 cells/uL [facility] Absolute Monocytes 395 200 - 950 cells/uL [facility] Eosinophils Absolute 158 15 - 500 cells/uL [facility] Basophils Absolute 0 0 - 200 cells/uL [facility] Granulocytes % 77 % [facility] Myelocytes 2(H) % [facility] Lymphocytes % 14 % [facility] Monocytes % 5 % [facility] Eosinophils % 2 % [facility] Basophils % 0 % [facility] Comments [facility] Comment: Review of the peripheral smear reveals decreased numbers of platelets. RBC morphology is unremarkable The smear has been manually reviewed and the manual differential has been reported. Antibody Screen NO ANTIBODIES DETECTED [facility] Comment: ?Reference range ?No antibodies detected This assay is a screening test for the detection of red blood cell antibodies. The test is not to be used for pretransfusion screening or for the medical management of an alloimmunized . ? ABO O [facility] Rh Type RH(D) POSITIVE [facility] Comment: For additional information, please refer to http://education.Agentrun/faq/GAS176 (This link is being provided for informational/ educational purposes only.) RPR NON-REACTIVE NON-REAC TIVE [facility] Hepatitis B Virus Surface Antigen NON-REACTIVE NON-REAC TIVE [facility] Confirmation [facility] Rubella Antibody 10.40 Index [facility] Comment: ?Index ?Interpretation ?----- ?<0.90 ?Not consistent with immunity ?0.90-0.99 ?Equivocal ?> or = 1.00 ?Consistent with immunity The presence of rubella IgG antibody suggests immunization or past or current infection with rubella virus. Test Performed at: [facility] [address] [place] [address] ??[phone] NGIEL RUIZ MD Blood BLOOD SPECIMEN / Unknown 07/23/2022 11:20 AM CDT 07/23/2022 11:21 AM CDT Eduard Red MD LAB - CHEMISTRY ORDERABLES [employer] [address] [place] [address] * CULTURE URINE (07/01/2022 12:06 PM CDT) Only the most recent of9 resultswithin the time period is included. Culture [facility] Comment: ??CULTURE, URINE, ROUTINE ?Micro Number: ?[id number] ??Test Status: ? Final ??Specimen Source: ?? Urine, clean catch ??Specimen Quality: ??Adequate ??Result: ?No Growth Test Performed at: [email or web address] ??[phone] NIGEL RUIZ MD Urine URINE SPECIMEN OBTAINED BY CLEAN CATCH PROCEDURE / Unknown 07/01/2022 12:06 PM CDT 07/02/2022 2:06 AM CDT Eduard Red MD LAB - MICROBIOL OGY ORDERABLES Performing Organization Address [facility]/ZIP Co de Phone Number [address] [address] * [place] OB US, LIMITED, FETUS(S) (07/01/2022 9:37 AM CDT) Narrative Jesus Donato RDMS - 07/01/2022 9:37 AM CDT Jesus Donato RDMS ? 07/01/2022 ??9:37 AM Documentation in digisonics. Marcel Ram MD PROCEDURE/YOLANDA R SURGICAL ORDERABLES * IGG BLOOD (06/30/2022 11:10 AM CDT) Only the most recent of4 resultswithin the time period is included. Pathologist [facility] IgG 1605 600 - 1640 mg/dL [facility] Comment: Test Performed at: [facility] [place] [address] [place] ??[phone] NIGEL RUIZ MD Blood BLOOD SPECIMEN / Unknown 06/30/2022 11:10 AM CDT 06/30/2022 11:12 AM CDT Juan Landry MD LAB - CHEMISTRY STEPHON AKINS Performing Organization Address [facility]/ZIP Co de Phone Number [address] [address] * (ABNORMAL) PT-INR (12/08/2021 7:10 AM CDT) Only the most recent of13 resultswithin the time period is included. Pathologist [facility] INR 1.2(H) [facility] Comment: Reference Range ? 0.9-1.1 Moderate-intensity Warfarin Therapy 2.0-3.0 Higher-intensity Warfarin Therapy ?? 3.0-4.0 PT 12.2(H) 9.0 - 11.5 sec [facility] Comment: For additional information, please refer to http://education.Neutral Space/faq/VOS733 (This link is being provided for informational/ educational purposes only.) Test Performed at: [email or web address] ??[phone] NIGEL RUIZ MD 12/08/2021 7:10 AM CDT 12/08/2021 7:11 AM CDT Juan Landry MD LAB - COAGULATION OR DERABLES Performing Organization Address [facility] Co de Phone Number [address] [address] * SLIDE SCAN HEMATOLOGY (12/08/2021 7:10 AM CDT) Only the most recent of3 resultswithin the time period is included. [facility] CBC Morphology NORMAL [facility] Comment: Red cell morphology appears unremarkable Test Performed at: [facility] [place] [address] [place] ??[phone] [employer] DO,MPH 12/08/2021 7:10 AM CDT 12/08/2021 7:11 AM CDT Juan Landry MD LAB - HEMATOLOGY ORD ERABLES Performing Organization Address [facility] Co de Phone Number [address] [address] * HCG URINE QUALITATIVE - POINT OF CARE (AMB) (01/06/2021) Only the most recent of2 resultswithin the time period is included. Pathologist [facility] HCG Qual Urine Negative Negative QC Verified Yes Yes Urine URINE / Unknown 01/06/2021 Frida De Los Santos MD LAB - POINT OF CARE ORDERABLES * CT ABDOMEN PELVIS W CONTRAST (10/13/2020 10:09 AM CDT) Only the most recent of8 resultswithin the time period is included. Anatomical Region Laterality Modality Abdomen, Pelvis Computed Tomogra phy 10/13/2020 10:2 8 AM CDT Impressions 10/13/2020 10:33 AM CDT The transplanted liver shows normal enhancement. Marked splenomegaly with extensive varices. No evidence for bowel obstruction or bowel wall thickening. Small left ovarian cyst. *Reading Radiologist: Tariq Branch on 10/13/2020 at 10:33 AM Narrative 10/13/2020 10:[address] abdomen and pelvis with IV contrast Indication: ??History of hepatocellular carcinoma. Status post liver transplant 8 years ago. Recent IUD placement., Pain. Technique: CT examination of the abdomen and pelvis was performed from the lung bases through the pubis symphysis after the administration of IV contrast. Sagittal and coronal reconstructions were performed. Contrast: 100 cc of Isovue-370 was utilized. FINDINGS: There is atelectasis within the lung bases. ?? The visualized bony structures are unremarkable. There are changes of liver transplant. The transplanted liver enhances normally. There is normal enhancement of the portal venous system. There is no liver mass. There is no intrahepatic biliary dilatation. The patient is status post cholecystectomy. ?? The pancreas is unremarkable. There is marked splenomegaly. Extensive splenorenal varices are noted. Varices extend along the left lateral abdominal wall and into the adnexal region. The adrenal glands are not well delineated. ?? There is no hydronephrosis. There are no renal calculi. There is no perinephric fat stranding. There is no renal mass. The aorta is normal in caliber. ?? The IVC is normal in caliber. ?? There is no retroperitoneal adenopathy. ?? There is no mesenteric adenopathy. The stomach is decompressed. ?? The small bowel loops in the upper abdomen are nondistended with no bowel wall thickening. ?? The colonic structures within the upper abdomen are normal in caliber with no bowel wall thickening. Within the pelvis: ?? A normal appendix is seen within the right lower quadrant. ?? The bladder is unremarkable. ?? An IUD is seen within the uterus. There is a 3.2 cm left ovarian cyst. The right adnexa is unremarkable. ?? There is no free fluid within the pelvis. ?? There is no inguinal adenopathy. ?? There is no pelvic adenopathy. Rectosigmoid colon is unremarkable. Procedure Note Tariq Branch MD - 10/13/2020 CT abdomen and pelvis with IV contrast Indication: History of hepatocellular carcinoma. Status post liver transplant 8 years ago. Recent IUD placement., Pain. Technique: CT examination of the abdomen and pelvis was performed from the lung bases through the pubis symphysis after the administration of IV contrast. Sagittal and coronal reconstructions were performed. Contrast: 100 cc of Isovue-370 was utilized. FINDINGS: There is atelectasis within the lung bases. The visualized bony structures are unremarkable. There are changes of liver transplant. The transplanted liver enhances normally. There is normal enhancement of the portal venous system. There is no liver mass. There is no intrahepatic biliary dilatation. The patient is status post cholecystectomy. The pancreas is unremarkable. There is marked splenomegaly. Extensive splenorenal varices are noted. Varices extend along the left lateral abdominal wall and into the adnexal region. The adrenal glands are not well delineated. There is no hydronephrosis. There are no renal calculi. There is no perinephric fat stranding. There is no renal mass. The aorta is normal in caliber. The IVC is normal in caliber. There is no retroperitoneal adenopathy. There is no mesenteric adenopathy. The stomach is decompressed. The small bowel loops in the upper abdomen are nondistended with no bowel wall thickening. The colonic structures within the upper abdomen are normal in caliber with no bowel wall thickening. Within the pelvis: A normal appendix is seen within the right lower quadrant. The bladder is unremarkable. An IUD is seen within the uterus. There is a 3.2 cm left ovarian cyst. The right adnexa is unremarkable. There is no free fluid within the pelvis. There is no inguinal adenopathy. There is no pelvic adenopathy. Rectosigmoid colon is unremarkable. IMPRESSION The transplanted liver shows normal enhancement. Marked splenomegaly with extensive varices. No evidence for bowel obstruction or bowel wall thickening. Small left ovarian cyst. *Reading Radiologist: Tariq Branch on 10/13/2020 at 10:33 AM Esther Pisano MD CT ORDERABLES * HCG BETA BLOOD QUANTITATIVE (10/13/2020 6:34 AM CDT) Only the most recent of4 resultswithin the time period is included. hCG Quantitative <1.20 mIU/mL 10/14/19 9:30 AM CDT [facility] Blood BLOOD SPECIMEN / Unknown Venipuncture / Unknown 10/13/2020 6:34 AM CDT 10/13/2020 6:41 AM CDT Narrative [facility] - 10/13/2020 9:30 AM CDT ? hCG Reference Range, mIU/mL: ? Males ? 0-2.0 ? Non Females ? 0-6.0 ? Perimenopausal Females ages 41-55* ?0-7.7 ? Postmenopausal Females age >55* ? 0-14 ? Females, Weeks after Last Menstrual Period ?0.2-1 week ? 5-50 ?1 - 2 weeks ?50-500 ?2 - 3 weeks ?100-5000 ?3 - 4 weeks ?500-10,000 ?4 - 5 weeks ?1000-50,000 ?5 - 6 weeks ?10,000-100,000 ?6 - 8 weeks ?15,000-200,000 ?2 - 3 months ? 10,000-100,000 ?Trophoblastic Disease ?>100,000 *In higher than expected hCG in females > age 40, a serum FSH >20 IU/L makes unlikely. Esther Pisano MD LAB - CHEMISTRY STEPHON AKINS Performing Organization Address City/State/[facility] Co de Phone Number [facility] [address] [phone] * [place] INSERT INTRAUTERINE DEVICE (10/07/2020 1:07 PM CDT) Narrative Frida De Los Santos MD - 10/07/2020 1:07 PM CDT Frida De Los Santos MD ? 10/07/2020 ??1:49 PM See progress note Frida De Los Santos MD PROCEDURE/MINOR SURG ICAL ORDERABLES * C. TRACHOMATIS + N. GONORRHOEAE HU (09/09/2020 3:16 PM CDT) Chlamydia Trachomatis HU Not detected Not detected 09/11/2020 8:38 AM CDT [facility] Neisseria Gonorrhoeae HU Not detected Not detected 09/11/2020 8:38 AM CDT [facility] Pathology/Cytolo gy MISCELLANEOUS SAMPLES / Unknown 09/09/2020 3:16 PM CDT 09/10/2020 12:04 PM CDT Narrative [facility] - 09/11/2020 8:38 AM CDT This analysis was performed using Gen-Probe Aptima Combo 2. This methodology is U.S. FDA approved for Chlamydia trachomatis and Neisseria gonorrhoeae testing for urine and urogenital swabs from men and women, and cervical cells submitted in ThinPrep vials. Performance characteristics for rectal and pharyngeal swabs were determined by the [facility] at [facility]. ??Testing by Gen- Probe Aptima Combo 2 on these sample types has not been cleared or approved by the U.S. FDA. ??The FDA has determined that such clearance approval is not necessary. ??This test is used for clinical purposes and should not be regarded as investigational or for research. ??This laboratory is certified under the Clinical Laboratory Improvements Amendments of 1988 (CLIA 1988), as qualified to perform high complexity laboratory testing. Frida De Los Santos MD LAB - MICROBIOLOGY O [facility] Performing Organization Address City/State/[facility] Co de Phone Number [facility] [address] [place] [address], [facility] [phone] * PAP IMAGE-GUIDED RFLX HPV+CT/NG (09/09/2020 3:16 PM CDT) Case Report Gynecologic Cytology Report ? Case: [id number] ? Authorizing Provider: ??Frida De Los Santos MD ?Collected: ? 09/09/2020 03:16 PM ? Ordering Location: ? [facility] ? Received: ?09/10/2020 12:04 PM ? Gynecology and Women's ? Health ? First Screen: ?Roc Telles ? Specimen: ?THINPREP - IMAGE GUIDED, Cervix/Endocervix ? 09/11/2020 10:55 AM CDT [facility] LMP 09/01/20 09/11/2020 10:55 AM CDT [facility] Menstrual Status None Applicable 10:55 AM CDT [facility] Specimen Adequacy Satisfactory for evaluation, endocervical/trans formation zone component present. 09/11/2020 10:55 AM CDT [facility] Categorization Negative for intraepithelial lesion or malignancy. 09/11/2020 10:55 AM CDT [facility] Interpretation CNC MILL AND LATHE OPERATOR Negative for intraepithelial lesion or malignancy. 09/11/2020 10:55 AM CDT [facility] Other Infection with fungal organisms morphologically consistent with Mariana species. 09/11/2020 10:55 AM CDT [facility] Pap Footnote The Pap Smear is a screening test. False positive and false negative results occur. Negative results do not preclude abnormalities, thus clinical correlation is required. This specimen was evaluated by the ThinPrep Imaging System along with an additional manual rescreening by a cashier and waiter/waitress and/or pathologist. 09/11/2020 10:55 AM CDT [facility] Embedded Images 10:55 AM CDT [facility] Pathology/Cytolo gy MISCELLANEOUS SAMPLES / Unknown 09/09/2020 3:16 PM CDT 09/10/2020 12:04 PM CDT Frida De Los Santos MD LAB - PATHOLOGY/CYTO LOGY ORDERABLES Performing Organization Address City/State/[facility] Co de Phone Number [facility] [address] [phone] * (ABNORMAL) COAGULATION PANEL W D-DIMER (04/23/2020 12:28 AM SOLVENT PROCESS EXTRACTOR OPERATOR) PT 14.7 12.1 - 14.8 sec 04/23/2020 1:[address] [facility] INR 1.2(H) 0.9 - 1.1 04/23/2020 1:[address] [facility] PTT 31.7 23.0 - 38.4 sec 04/23/2020 1:[address] [facility] Fibrinogen 415(H) 200 - 400 mg/dL 04/23/2020 1:[address] [facility] D-Dimer 1.09(H) 0.27 - 0.50 ug/mL FEU 04/23/2020 1:[address] [facility] Platelet Count 143(L) 153 - 416 x10E9/L 04/23/2020 1:[address] [facility] Blood BLOOD SPECIMEN / Unknown Venipuncture / Unknown 04/23/2020 12:28 AM SOLVENT PROCESS EXTRACTOR OPERATOR 04/23/2020 12:35 AM [facility] Narrative [facility] - 04/23/2020 1:20 AM [facility] Conventional Warfarin Anticoagulant Therapy INR Reference Range: ??2.0-3.0 Intensive Warfarin Anticoagulant Therapy INR Reference Range: ? 2.5-3.5 Heparin Therapeutic Range for PTT: ??71.0 - 109.0 seconds. In the absence of clinical symptoms, a value less than or equal to 0.5 mcg/mL FEU significantly decreases the probability of PE/DVT (negative predictive value >95%). 1 mcg/ml FEU = 1 Fibrinogen Equivalent Unit (approximates 0.5 mcg/mL of D- dimer). ?ISTH DIAGNOSTIC SCORING SYSTEM FOR DIC ---- Score ?0 ? 1 ? 2 ? 3 ?? Platelet Count (x10^3/uL) ?> 100 ? <100 ? < 50 ?N/A PT Prolongation above ? Upper limit of normal ?0-3 ? 3-6 ? > 6 ?N/A Range (seconds) ? Fibrinogen (mg/dL) ? >100 ?< 100 ? N/A ?N/A ?? D-Dimer (mcg/mL FEU) ?< .50 ? N/A ?0.50-5.0 ?> 5 ?? Calculate Cumulative Score: > or = 5: compatible with overt DIC ? < 5: suggestive for non-overt DIC N/A = Non applicable Reference: Br. J. Haematol. ??145:24-33,2008. Giovana Walker MD LAB - COAGULATION OR DERABLES [facility] [address] [place] [address] * (ABNORMAL) BLOOD GASES CORD DANO (03/23/2020 7:03 PM SOLVENT PROCESS EXTRACTOR OPERATOR) pH Cord Venous 7.36 7.28 - 7.40 pH 03/23/2020 7:16 PM SOLVENT PROCESS EXTRACTOR OPERATOR [facility] Comment:H pCO2 Cord Venous 35 35 - 45 mm hg 03/23/2020 7:16 PM SOLVENT PROCESS EXTRACTOR OPERATOR [facility] pO2 Cord Venous 40(H) 22 - 33 mm hg 03/23/2020 7:16 PM SOLVENT PROCESS EXTRACTOR OPERATOR [facility] Comment:H HCO3 Cord Venous 19(L) 22 - 24 mmol/L 03/23/2020 7:16 PM SOLVENT PROCESS EXTRACTOR OPERATOR [facility] BE Cord Venous -5.0 mmol/L 03/23/2020 7:16 PM SOLVENT PROCESS EXTRACTOR OPERATOR [facility] O2 Saturation Cord Venous 74 % 03/23/2020 7:16 PM SOLVENT PROCESS EXTRACTOR OPERATOR [facility] Mode APV/SIMV 03/23/2020 7:16 PM SOLVENT PROCESS EXTRACTOR OPERATOR [facility] Darrion's Test N/A 03/23/2020 7:16 PM SOLVENT PROCESS EXTRACTOR OPERATOR [facility] Sample Site UMB 03/23/2020 7:16 PM SOLVENT PROCESS EXTRACTOR OPERATOR [facility] Sample Type Cord Blood Venous 03/23/2020 7:16 PM SOLVENT PROCESS EXTRACTOR OPERATOR [facility] Board Operator ID [id number] 03/23/2020 7:16 PM SOLVENT PROCESS EXTRACTOR OPERATOR [facility] Notified Liane Robbins, RN 03/23/2020 7:16 PM SOLVENT PROCESS EXTRACTOR OPERATOR [facility] Notification Time 03/23/2020 19:15 03/23/2020 7:16 PM SOLVENT PROCESS EXTRACTOR OPERATOR [facility] Notified By Qi Elizalde, MAXIMO 03/23/2020 7:16 PM SOLVENT PROCESS EXTRACTOR OPERATOR [facility] Blood CORD BLOOD SPECIMEN / Unknown 03/23/2020 7:03 PM SOLVENT PROCESS EXTRACTOR OPERATOR 03/23/2020 7:03 PM SOLVENT PROCESS EXTRACTOR OPERATOR Chayo Casillas MD LAB - BLOOD GASES ORDERABLES [facility] [address] [phone] * (ABNORMAL) BLOOD GASES CORD ARTERIAL (03/23/2020 7:03 PM SOLVENT PROCESS EXTRACTOR OPERATOR) pH Cord Arterial 7.10(L) 7.20 - 7.34 pH 03/23/2020 7:17 PM SOLVENT PROCESS EXTRACTOR OPERATOR [facility] Comment:LL pCO2 Cord Arterial 82(HH) 45 - 55 mm hg 03/23/2020 7:17 PM SOLVENT PROCESS EXTRACTOR OPERATOR [facility] Comment:HH pO2 Cord Arterial 14 12 - 25 mm hg 03/23/2020 7:17 PM SOLVENT PROCESS EXTRACTOR OPERATOR [facility] HCO3 Cord Arterial 24.9(H) 22.0 - 24.0 mmol/L 03/23/2020 7:17 PM SOLVENT PROCESS EXTRACTOR OPERATOR [facility] BE Cord Arterial -7.1 mmol/L 03/23/20 20 7:17 PM SOLVENT PROCESS EXTRACTOR OPERATOR [facility] O2 Saturation Cord Arterial 03/23/2020 7:17 PM SOLVENT PROCESS EXTRACTOR OPERATOR [facility] Comment:< Darrion's Test N/A 03/23/2020 7:17 PM SOLVENT PROCESS EXTRACTOR OPERATOR [facility] Sample Site UMB 03/23/2020 7:17 PM SOLVENT PROCESS EXTRACTOR OPERATOR [facility] Sample Type Cord blood Arterial 03/23/2020 7:17 PM SOLVENT PROCESS EXTRACTOR OPERATOR [facility] Board Operator ID [id number] 03/23/2020 7:17 PM SOLVENT PROCESS EXTRACTOR OPERATOR [facility] Notified Who Yassine Garduno RN 03/23/2020 7:17 PM SOLVENT PROCESS EXTRACTOR OPERATOR [facility] Notification Time 03/23/2020 19:16 03/23/2020 7:17 PM SOLVENT PROCESS EXTRACTOR OPERATOR [facility] Notified By Qi Elizalde RRT 03/23/2020 7:17 PM SOLVENT PROCESS EXTRACTOR OPERATOR [facility] Blood, arterial CORD BLOOD SPECIMEN / Unknown 03/23/2020 7:03 PM SOLVENT PROCESS EXTRACTOR OPERATOR 03/23/2020 7:03 PM SOLVENT PROCESS EXTRACTOR OPERATOR Chayo Casillas MD LAB - BLOOD GASES ORDERABLES Performing Organization Address [facility]/State/[facility] Co de Phone Number [facility] [address] [phone] * EPIDURAL BLOCK PERF (03/23/2020 7:21 AM SOLVENT PROCESS EXTRACTOR OPERATOR) Narrative Luz Altamirano APRN-SWING TENDER - 03/23/2020 7:21 AM SOLVENT PROCESS EXTRACTOR OPERATOR Luz Altamirano APRN-CRNA ? 03/23/2020 ??7:22 AM Neuraxial Block Note ?? Pre-Procedure: ?? Procedure Name: ??Neuraxial Block Patient Location: ??OB Indications: ??labor analgesia Pre-Anesthetic Checklist: ??Patient identified, IV Checked, Risks and benefits discussed, Surgical consent verified, Monitors and equipment, Site examined, Pre-op evaluation done, Time-out performed, Informed consent obtained, Questions answered/anesthesia questions answered and Allergies reviewed Monitors: ??BP, continuous pluse ox, EKG and End tidal CO2 Patient Condition: ??awake Patient Sedated? ??No Procedure: ?? Block Type: ??Epidural Prep: ??Betadine Sterile Field: ??mask, cap/hat, sterile established and sterile gloves Approach: ??midline Skin was localized? ??Yes Skin localized with: lidocaine (XYLOCAINE) 1 % injection, 3 mL Epidural Block: ?? Is this procedure for postop pain? ??No Needle Type: ??Tuohy Needle gauge: ??18 G Needle length: ??90 mm Placement Site: ??L3-L4 Number of Attempts: ??1 Loss of Resistance: ??7 ?? air Catheter threaded to (cm): ??5 Catheter length at skin (cm): ??12 CSF Aspirated from catheter: ??No Blood Aspirated: ??No Test Dose: ??3 ??mL at ??03/23/2020 7:00 AM Test Dose Response: ??No Epidural Infusion Medications: ? Ropivacaine: ??0.2% with Fentanyl 2mcg/mL in NS , ??250 cc (mL) ??at 12 mL/hr Procedure Tolerance: ??tolerated well Sensory Level: ??T8 Motor Blockade: ??Yes Position post procedure: ??head of bed elevated 30 degrees, ?? left lateral decubitus Vital Signs: ??Vital signs monitored and stable throughout. ??See anesthesia record for details., heart tones monitored and stable throughout., Vital signs moniitored and stable throughout. ??See nursing vitals flowsheet for details. Start Time: ??03/23/2020 6:57 AM End Time: ??03/23/2020 7:00 AM Total Time: ??3 Staff: ?? Anesthesia Provider: ??Luz Altamirano, DREDGE OPERATOR-SWING TENDER ?? - ?? performed the procedure Giuseppe Thorne MD GENERAL ANESTHESIA ORDERABLES * (ABNORMAL) BILE ACIDS (03/22/2020 7:11 PM SOLVENT PROCESS EXTRACTOR OPERATOR) Only the most recent of2 resultswithin the time period is included. Bile Acids Total 48.6(H) 0.0 - 10.0 umol/L 03/25/2020 12:08 PM SOLVENT PROCESS EXTRACTOR OPERATOR [facility] Blood BLOOD SPECIMEN / Unknown Venipuncture / Unknown 03/22/2020 7:11 PM SOLVENT PROCESS EXTRACTOR OPERATOR 03/22/2020 7:18 PM SOLVENT PROCESS EXTRACTOR OPERATOR Narrative [facility]) - 03/25/2020 12:08 PM SOLVENT PROCESS EXTRACTOR OPERATOR Performed at: ??01 - [facility] [address] ??[id number] Air Brakes Inspector: Justin Stapleton MD, Phone: ??[phone] Sofia Navarro MD LAB - CHEMISTRY STEPHON Day Organization Address City/State/ZIP Co de Phone Number [facility] ([facility]) [address] [place] [address] * [place] SONO FU OR REPEAT (03/13/2020 10:08 AM SOLVENT PROCESS EXTRACTOR OPERATOR) Narrative Kinjal Polanco RDMS - 03/13/2020 10:08 AM SOLVENT PROCESS EXTRACTOR OPERATOR Kinjal Polanco RDMS ? 03/13/2020 10:08 AM Documentation in digisonics. Mariama Mendoza MD PROCEDU RE/MINOR SURGICAL ORDERABLES * NONSTRESS TEST (02/20/2020 9:30 PM SOLVENT PROCESS EXTRACTOR OPERATOR) Narrative Frida Smith MD - 02/20/2020 9:30 PM SOLVENT PROCESS EXTRACTOR OPERATOR Frida Smith MD ? 02/21/2020 ??9:13 AM Name: ??Lili Aguila Date of : ??2000 Today's Date: ??02/20/2020 33w1d ?NST RESULTS (VÁZQUEZ) OBJECTIVE FINDINGS Temp: 98.4 ??F (36.9 ??C), Pulse: 88, Resp: 18, BP: 121/66 NST Indication(s): Other (Comment)(r/o labor) Uterine Irritability: No Contractions: Irregular Frequency: rare Perceived Intensity: Mild OBJECTIVE FINDINGS Movement: Present Monitoring Mode: External Baseline: 135 BPM Variability: Moderate Decelerations: None Accelerations: Yes OTHER INFORMATION Gabby Ingram RN NST: baseline 140 bpm, moderate variability, reactive, no decelerations [place]: about 1 contraction per hour, otherwise quiet Monitored for > 2 hours Destiny Marcelo MD 02/20/2020 11:47 PM Agree Frida Smith MD Destiny Marcelo MD OB GYNE ORDERABLES * SARS-COV-2 (COVID-19) ANTIBODY IGG (02/16/2020 9:51 AM CDT) Pathologist [facility] CoV2 IGG Negative Negative 02/16/2020 3:35 PM CDT [facility] Blood BLOOD SPECIMEN / Unknown Lab Venipuncture / Unknown 02/16/2020 9:51 AM CDT 02/16/2020 10:00 AM CDT Narrative [facility] - 02/16/2020 3:35 PM CDT This serologic based test was developed by [employer] and its performance characteristics determined by [facility] along with other [facility]. This test has not been fully reviewed by the FDA but is being allowed for use per the FDAs' Emergency Use Authorization. Please note the following disclaimers: Negative results do not rule out SARS-CoV-2 infection, particularly in those who have been in contact with the virus. Follow-up testing with a molecular diagnostic should be considered to rule out infection in these individuals. Results from antibody testing should not be used as the sole basis to diagnose or exclude SARS-CoV-2 infection or to inform infection status. False positive results may be due to past or present infection with [id number] coronavirus strains. Rigorous scientific studies have not been completed to determine if detectable IgG to SARS-CoV-2 confers protective immunity. Jeffrey Phelps DO LAB - CHEMISTRY STEPHON AKINS [facility] [address] [place] [address] * PROCALCITONIN LEVEL (02/16/2020 9:51 AM CDT) Pathologist [facility] Procalcitonin 0.05 <0.10 ng/mL 02/16/2020 10:48 AM CDT [facility] Blood BLOOD SPECIMEN / Unknown Lab Venipuncture / Unknown 02/16/2020 9:51 AM CDT 02/16/2020 10:00 AM CDT Narrative [facility] - 02/16/2020 10:48 AM CDT The change in procalcitonin (PCT) concentration over time provides support in decision making on antibiotic discontinuation for suspected or confirmed septic patients. Follow-up samples should be tested once every 1-2 days based upon physician discretion taking into account the patient? s evolution and progress. Consider discontinuation of ??antibiotic therapy ??if the PCT current ??is <= 0.5 ng/mL or if the delta PCT is > 80%. ??Duration of antibiotics should not be determined solely on PCT; established guidelines for the indication should be followed. ? PCT peak: ??Highest observed PCT concentration ? PCT current: Most recent PCT concentration ? Calculate delta PCT using the following equation: ?Delta PCT ??= ?? PCT Peak ? PCT current ??X 100% ? PCT Peak The Change in Procalcitonin Calculator is available at [email or web address] Acqusitions ?? If clinical picture has not improved and PCT remains high, reevaluate and consider treatment failure or other causes. Nafisa Cannon APRNSmartDocs ([employer]) LAB - CHEMIS TRY ORDERABLES [facility] [address] [phone] * (ABNORMAL) C-REACTIVE PROTEIN (02/16/2020 9:51 AM CDT) Only the most recent of3 resultswithin the time period is included. C-Reactive Protein 1.62(H) <=0.50 mg/dL 02/16/2020 10:27 AM CDT [facility] Blood BLOOD SPECIMEN / Unknown Lab Venipuncture / Unknown 02/16/2020 9:51 AM CDT 02/16/2020 10:00 AM CDT Nafisa Cannon DREDGE OPERATOR-SUPPLY CHAIN SPECIALIST LAB - CHEMIS TRY ORDERABLES Performing Organization Address [facility] Co de Phone Number [facility] [address] [place] [address] * (ABNORMAL) D-DIMER (02/16/2020 9:51 AM CDT) [facility] D-Dimer 1.28(H) 0.27 - 0.50 ug/mL FEU 02/16/2020 10:24 AM CDT [facility] Blood BLOOD SPECIMEN / Unknown Lab Venipuncture / Unknown 02/16/2020 9:51 AM CDT 02/16/2020 10:00 AM CDT Narrative [facility] - 02/16/2020 10:24 AM CDT In the absence of clinical symptoms, a value less than or equal to 0.5 mcg/mL FEU significantly decreases the probability of PE/DVT (negative predictive value >95%). 1 mcg/ml FEU = 1 Fibrinogen Equivalent Unit (approximates 0.5 mcg/mL of D- dimer). Nafisa Cannon APRN-SUPPLY CHAIN SPECIALIST LAB - COAGUL ATION ORDERABLES Performing Organization Address [facility] Hospital/[facility] de Phone Number [facility] [address] [place] [phone] * LDH BLOOD (02/16/2020 9:51 AM CDT) Only the most recent of2 resultswithin the time period is included. [facility] LDH 163 125 - 220 U/L 02/16/2020 10:27 AM CDT [facility] Blood BLOOD SPECIMEN / Unknown Lab Venipuncture / Unknown 02/16/2020 9:51 AM CDT 02/16/2020 10:00 AM CDT Nafisa Cannon DREDGE OPERATOR-SUPPLY CHAIN SPECIALIST LAB - CHEMIS TRY ORDERABLES Performing Organization Address [facility] Co de Phone Number [facility] [address] [place] [address] * FERRITIN (02/16/2020 9:51 AM CDT) Only the most recent of6 resultswithin the time period is included. [facility] Ferritin 18 5 - 204 ng/mL 02/16/2020 10:49 AM CDT [facility] Blood BLOOD SPECIMEN / Unknown Lab Venipuncture / Unknown 02/16/2020 9:51 AM CDT 02/16/2020 10:00 AM CDT Nafisa Cannon DREDGE OPERATOR-SUPPLY CHAIN SPECIALIST LAB - CHEMIS TRY ORDERABLES [facility] [address] [place] [address] * XR CHEST 1VW PORTABLE (02/16/2020 4:35 AM CDT) Anatomical Region Laterality Modality Chest Radiographic Joanne ging 02/16/2020 7:56 AM CDT Narrative 02/16/2020 7:56 AM CDT Exam: AP radiograph of the chest. History: Shortness of breath Findings/Impression: No focal consolidation or pleural effusion is identified. The cardiac silhouette appears normal. The mediastinal contours appear normal. *Reading Radiologist: Tung Patterson on 02/16/2020 at 7:56 AM Procedure Note Tung Patterson MD - 02/16/2020 Exam: AP radiograph of the chest. History: Shortness of breath Findings/Impression: No focal consolidation or pleural effusion is identified. The cardiac silhouette appears normal. The mediastinal contours appear normal. *Reading Radiologist: Tung Patterson on 02/16/2020 at 7:56 AM Chayo Casillas MD DIAGNOSTIC IMAGIN G ORDERABLES * (ABNORMAL) SARS-COV-2 (COVID-19) RAPID (02/16/2020 3:14 AM CDT) COVID-19 PCR Detected( AA) Not detected 02/16/2020 3:58 AM CDT [facility] Microbiology SPECIMEN FROM NASOPHARYNGEAL STRUCTURE / Unknown Collection / Unknown 02/16/2020 3:14 AM CDT 02/16/2020 3:16 AM CDT Narrative [facility] - 02/16/2020 3:58 AM CDT The SAIC Xpert Xpress SARS_COV_2 has been authorized by the Food and Drug administration (FDA) under an Emergency Use Authorization (EUA). This test has been validated in accordance with the FDA's guidance document Policy for Diagnostic Testing in Laboratories Certified to perfom High Complexity Testing under CLIA prior to Emergency Use Authorization for Coronavirus Disease-2019 during the Public Health Emergency issued on June 17, 2019. FDA independent review of this validation is pending. This test is only authorized for the duration of the time the declaration that circumstances exsit justifying the authorization of emergency use of in vitro diagnostic tests for detection of SARS-COV-2 virus and/or diagnosis of COVID-19 infection under 564(b) (1) of the Act. 21 U.S.C. 360bbb-3 (b) (1), unless the authorization is terminated or revoked sooner. Fact Sheets for this EAU assay are available upon request. Chayo Casillas MD LAB - MICROBIOLOG Y ORDERABLES Performing Organization Address City/[facility]/ZIP Co de Phone Number [facility] [address] [place] [address] * BLOOD TYPE VERIFICATION (02/16/2020 2:58 AM CDT) Pathologist [facility] ABO Rh O POS 02/16/2020 6:5 9 AM CDT [facility] Blood Bank BLOOD SPECIMEN / Unknown Lab Venipuncture / Unknown 02/16/2020 2:58 AM CDT 02/16/2020 6:22 AM CDT Jeffrey Phelps DO LAB - BLOOD BANK ORD ERABLES Performing Organization Address [facility]/ZIP Co de Phone Number [facility] [address] [place] [address] * INFLUENZA A+B ANTIGEN RAPID (02/16/2020 2:58 AM CDT) Only the most recent of2 resultswithin the time period is included. Influenza A Antigen Negative Negative 02/16/2020 3:28 AM CDT [facility] Influenza B Antigen Negative Negative 02/16/2020 3:28 AM CDT [facility] Microbiology SPECIMEN FROM NASOPHARYNGEAL STRUCTURE / Unknown Collection / Unknown 02/16/2020 2:58 AM CDT 02/16/2020 3:06 AM CDT Narrative [facility] - 02/16/2020 3:28 AM CDT ? The sensitivity of rapid tests for influenza A and B antigens, according to the published reports , ranges from 30-70% when compared to PCR and viral culture. For H1N1 influenza A, the sensitivity varies from 30-50%. For other influenza A strains, the sensitivity ranges from 50-70%. For influenza B virus, the sensitivity is approximately 30%. A negative result does not exclude influenza infection. ? False-positive (and true-negative) influenza test results are more likely to occur when disease prevalence is low, which is generally at the beginning and end of the influenza season. False-negative (and true-positive) influenza test results are more likely to occur when disease prevalence is high, which is typically at the height of the influenza season. Chayo Casillas MD LAB - MICROBIOLOG Y ORDERABLES Performing Organization Address [facility] de Phone Number [facility] [address] [place] [address] * PHOSPHORUS BLOOD (02/16/2020 2:58 AM CDT) Only the most recent of68 resultswithin the time period is included. Phosphorus 3.4 2.3 - 4.7 mg/dL 02/16/2020 3:44 AM CDT [facility] Blood BLOOD SPECIMEN / Unknown Venipuncture / Unknown 02/16/2020 2:58 AM CDT 02/16/2020 3:05 AM CDT Chayo Casillas MD LAB - CHEMISTRY O RDERABLES Performing Organization Address [facility] de Phone Number [facility] [address] [place] [address] * (ABNORMAL) MAGNESIUM BLOOD (02/16/2020 2:58 AM CDT) Only the most recent of157 resultswithin the time period is included. Magnesium 1.5(L) 1.6 - 2.6 mg/dL 02/16/2020 3:44 AM CDT [facility] Blood BLOOD SPECIMEN / Unknown Venipuncture / Unknown 02/16/2020 2:58 AM CDT 02/16/2020 3:05 AM CDT Chayo Casillas MD LAB - CHEMISTRY O RDERABLES [facility] [address] [place] [address] * FL SONO FU OR REPEAT (02/12/2020 3:55 PM CDT) Narrative Apr - 02/12/2020 3:55 PM CDT Apr ? 02/12/2020 ??3:55 PM Documentation in Digisonics. Adelfo Champion MD PROCEDURE/MINOR SURG ICAL ORDERABLES * PT PTT PANEL (01/18/2020 2:34 PM CDT) Only the most recent of31 resultswithin the time period is included. PTT 28 22 - 34 sec [facility] Comment: This test has not been validated for monitoring unfractionated heparin therapy. For testing that is validated for this type of therapy, please refer to the Heparin Anti-Xa assay (test code 73658). For additional information, please refer to http://education.Agentrun/faq/AXV570 (This link is being provided for informational/educational purposes only.) INR 1.1 [facility] Comment: Reference Range ? 0.9-1.1 Moderate-intensity Warfarin Therapy 2.0-3.0 Higher-intensity Warfarin Therapy ?? 3.0-4.0 PT 10.6 9.0 - 11.5 sec [facility] Comment: Test Performed at: [facility] [address] ??[phone] [facility] [employer],MPH Blood BLOOD SPECIMEN / Unknown 01/18/2020 2:34 PM CDT 01/18/2020 2:35 PM CDT Agnes Potts MD LAB - COAGULATION OR DERABLES Performing Organization Address [facility] Co de Phone Number [facility] [address] [place] [address] * (ABNORMAL) FIBRINOGEN ACTIVITY (01/18/2020 2:34 PM CDT) Only the most recent of2 resultswithin the time period is included. Fibrinogen Activity Clauss 489(H) 175 - 425 mg/dL [facility] Comment: REPORT COMMENT: FASTING:NO Test Performed at: [facility] ??[phone] [facility] 01/18/2020 2:34 PM CDT 01/18/2020 2:35 PM CDT Agnes Potts MD LAB - COAGULATION OR DERABLES Performing Organization Address [facility] Co de Phone Number [facility] [address] [place] [address] * FL SONO FU OR REPEAT (01/18/2020 1:42 PM CDT) Narrative Darlene Zimmerman - 01/18/2020 1:42 PM CDT Darlene Zimmerman ? 01/18/2020 ??1:42 PM Documentation in digisonics Yanni Ruiz MD PROCEDURE/MINOR S URGICAL ORDERABLES * IRON + TIBC PANEL (01/15/2020 2:14 PM CDT) Only the most recent of2 resultswithin the time period is included. TIBC 414 250 - 450 ug/dL [facility] INSURANCE BILL UIBC 340 131 - 425 ug/dL [facility] INSURANCE BILL Iron 74 27 - 159 ug/dL [facility] INSURANCE BILL Iron Saturation 18 15 - 55 % [facility] INSURANCE BILL 01/15/2020 2:14 PM CDT 01/15/2020 Narrative Resulting Agency Comment Lab Testing performed at: [facility] [address] ??[facility] [phone] Giovana Walker MD LAB - CHEMISTRY STEPHON AKINS Performing Organization Address City/[facility]/ZIP Co de Phone Number [facility] INSURANCE BILL [address] [place] [address] * GLUCOSE CHALLENGE (01/15/2020 2:14 PM CDT) Pathologist [facility] GTT 1Hr 115 65 - 139 mg/dL [facility] INSURANCE BILL Comment: According to ADA, a glucose threshold of >139 mg/dL after 50-gram load identifies approximately 80% of women with gestational diabetes mellitus, while the sensitivity is further increased to approximately 90% by a threshold of >129 mg/dL. Blood BLOOD SPECIMEN / Unknown 01/15/2020 2:14 PM CDT 01/15/2020 Narrative Resulting Agency Comment Lab Testing performed at: [facility] [address] [facility] ??[facility] [phone] Giovana Walker MD LAB - CHEMISTRY STEPHON AKINS [facility] [address] [place] [address] * GLUCOSE - POINT OF CARE (12/12/2019 11:42 PM CDT) Only the most recent of18 resultswithin the time period is included. [facility] Glucose WB/POC 78 70 - 106 mg/dL 12/12/2019 11:50 PM CDT [facility] Specimen Type Arterial/C apillary 12/12/2019 11:50 PM CDT [facility] Blood BLOOD SPECIMEN / Unknown 12/12/2019 11:42 PM CDT 12/12/2019 11:50 PM CDT Giovana Walker MD LAB - POINT OF CARE ORDERABLES [facility] [address] [place] [address] * TROPONIN I (11/29/2019 2:52 AM CDT) [facility] Troponin I <0.010 <0.038 ng/mL 11/29/2019 3:33 AM CDT [facility] Blood BLOOD SPECIMEN / Unknown Venipuncture / Unknown 11/29/2019 2:52 AM CDT 11/29/2019 2:59 AM CDT Maci Herron MD LAB - CHEMISTRY STEPHON AKINS Performing Organization Address City/[facility]/ZIP Co de Phone Number [facility] [address] [place] [address] * EKG 12-LEAD (11/29/2019 12:55 AM CDT) Ventricular Rate 80 BPM [facility] Atrial Rate 80 BPM [facility] P-R Interval 136 ms [facility] QRS Duration ms 90 ms [facility] Q-T Interval ms 384 ms [facility] QTC Calculation (Bezet) 442 ms [facility] Calculated R Spur 79 degrees [facility] Calculated T Spur 103 degrees [facility] M[facility] Interpretation EKG NORMAL SINUS RHYTHM ABNORMAL R WAVE IN V1, V6, PROBABLY LEAD PLACEMENT POSSIBLE ??LATERAL INFARCT , AGE UNDETERMINED ABNORMAL ECG NO PREVIOUS ECGS AVAILABLE Confirmed by MD Jadon, Dionisio ([id number]) on 11/29/2019 7:59:58 AM [facility] MUSE 11/29/2019 12:5 5 AM CDT 11/29/2019 7:59 AM CDT Chayo Murcia MD ECG ORDERABLES Performing Organization Address [facility] Co de Phone Number [facility] * FL ULTRASND,PREG UTER,TRANSVAGIN, FL ULTRASND,PREG UTERUS,IMAGE DOC (11/23/2019 11:59 AM CDT) Narrative Darlene Zimmerman - 11/23/2019 11:59 AM CDT Darlene Zimmerman ? 11/23/2019 11:59 AM Documentation in digisonics Rosemary Carroll MD PROCEDURE/YOLANDA R SURGICAL ORDERABLES * GLUCOSE PROTEIN KETONE URINE - POINT OF CARE (11/17/2019 2:15 AM CDT) Glucose UA neg Negative [facility] POCT TESTING Protein UA neg Negative [facility] PO[facility] TEST[facility] Ketone UA neg Negative [facility] PO[facility] TEST[facility] QC Verified Yes Yes [facility] POC T TESTING Urine URINE / Unknown 11/17/2019 2 :15 AM CDT Sofia Navarro MD LAB - POINT OF CARE ORDERABLES [facility] POCT TESTING [address] [place] [address], [facility] [phone] * FL ULTRASOUND, UTERUS (10/17/2019 4:40 PM CDT) Narrative Kinjal Polanco RDMS - 10/17/2019 4:40 PM CDT Kinjal Polanco RDMS ? 10/17/2019 ??4:40 PM Documentation in digisonics. Rosemary Carroll MD PROCEDURE/YOLANDA Lucy SURGICAL ORDERABLES * US OB TRANSVAGINAL (08/28/2019 3:08 PM CDT) Only the most recent of2 resultswithin the time period is included. Anatomical Region Laterality Modality Pelvis, Abdomen Ultrasound Narrative 08/28/2019 3:08 PM CDT Noah Snyder RDMS ? 08/28/2019 ??3:[address] [facility] ULTRASOUND - 1st Trimester Pt. Name: Lili Aguila is a 19 year old : ??2000 Exam Date: ??08/28/2019 LMP: ??Patient's last menstrual period was 06/17/2019. Reason for Scan: ?? Significant discrepancy between uterine size and clinical dates, confirm LEIGH Gestational age by (US on 08/14/19): ? 8 wks 0days ?LEIGH(LMP) 04/08/20 GA(by today's ultrasound): ?? 8 wks 1days ?LEIGH(US) ??04/07/20 Uterine orientation: ??Anteverted Ovaries: Right : normal ? Left : ??normal FHT seen: Yes Number of Fetuses ??1 CRL: ??17.4 mm consistent with 8 wks 1 days Comments: ?? Final EDC of 04/08/20 based on US on 08/14/19 Bulk Plant Supervisor: ?? Noah Snyder RDMS, RT(R) Images will be scanned into the record. Interpreting Physician: Giovana Walker M.D. ?? Procedure Note Noah Snyder RDMS - 08/28/2019 3:08 PM CDT [facility] OB ULTRASOUND - 1st Trimester Pt. Name: Lili Aguila is a 19 year old : 2000 Exam Date: 08/28/2019 LMP: Patient's last menstrual period was 06/17/2019. Reason for Scan: Significant discrepancy between uterine size andclinical dates, confirm LEIGH Gestational age by (US on 08/14/19): 8 wks 0days LEIGH(LMP)04/08/20 GA(by today's ultrasound): 8 wks 1days LEIGH(US) 04/07/20 Uterine orientation: Anteverted Ovaries: Right : normal Left : normal FHT seen: Yes Number of Fetuses 1 CRL: 17.4 mm consistent with 8 wks 1 days Comments: Final EDC of 04/08/20 based on US on 08/14/19 Bulk Plant Supervisor: Noah Snyder RDMS, RT(R) Images will be scanned into the record. Interpreting Physician: Giovana Walker M.D. Giovana Walker MD US ORDERABLES * VEGA STAINING PATTERNS REFLEXED (08/10/2019 8:26 AM CDT) Speckled Pattern 1:80 08/11/19 5:07 PM CDT [facility] ([facility]) Note Comment 08/11/2019 5:07 PM CDT [facility] ([facility]) Comment: A positive NUBIA result may occur in healthy individuals (low titer) or be associated with a variety of diseases. ??See interpretation chart which is not all inclusive: Pattern ?Antigen Detected ??Suggested Disease Association ? Homogeneous ??DNA(ds,ss), ? SLE - High titers ? Nucleosomes, ? Histones ?Drug-induced SLE ? Speckled ? Sm, CORPORATE TRAINER, SCL-70, ??SLE,MCTD,PSS (diffuse form), ? SS-A/SS-B ? Sjogrens ? Nucleolar ?SCL-70, PM-1/SCL ??High titers Scleroderma, ? PM/DM ? Centromere ?? Centromere ?PSS (limited form) w/Crest ? syndrome variable ? Nuclear Dot ??Sp100,k80-baoeal ??Primary Biliary Cirrhosis ? Nuclear ?GP210, ?Primary Biliary Cirrhosis Membrane ? korey A,B,C ? Blood BLOOD SPECIMEN / Unknown Lab Venipuncture / Unknown 08/10/2019 8:26 AM CDT 08/10/2019 8:42 AM CDT Narrative [facility] ([facility]) - 08/11/2019 5:07 PM CDT Performed at: ??01 - [facility] [address] [place], [place] ??[id number] Air Brakes Inspector: Hang Zurita PhD, Phone: ??[phone] Juan Landry MD LAB - PATHOLOGY/CYTO LOGY ORDERABLES Performing Organization Address City/State/[facility] Co de Phone Number [facility] ([facility]) [address] [place] [address] * BETTINA-MEDRANO VIRUS ANTIBODY TO VCA IGM (08/10/2019 8:26 AM CDT) Bettina-Medrano Virus Antibody IgM Viral Capsid Antigen <10.0 0.0 - 43.9 U/mL 08/11/2019 9:56 PM CDT [facility] ([facility]) Comment: INTERPRETIVE INFORMATION: Bettina-Medrano Virus Antibody to ?Viral Capsid Antigen, IgM ??35.9 U/mL or less.......Not Detected ?36.0-43.9 U/mL..........Indeterminate - Repeat testing in ?10-14 days may be helpful. ??44.0 U/mL or greater....Detected Performed by [facility], [address] [place] [address], [facility] [place] [address] [email or web address], Theodore Diane MD, Lab. Director Blood BLOOD SPECIMEN / Unknown Lab Venipuncture / Unknown 08/10/2019 8:26 AM CDT 08/10/2019 8:43 AM CDT Juan Landry MD LAB - SEROLOGY ORDER HANNAH Performing Organization Address [facility]/ZIP Co de Phone Number [facility] ([facility]) [address] [place] [address], [facility] * (ABNORMAL) NUBIA BLOOD SCREEN W/REFLEX TITER (08/10/2019 8:26 AM CDT) Only the most recent of3 resultswithin the time period is included. NUBIA Positive(A ) 08/11/2019 5:07 PM CDT [facility] ([facility]) Comment: ? Negative ?? <1:80 ? Borderline ??1:80 ? Positive ?? >1:80 Blood BLOOD SPECIMEN / Unknown Lab Venipuncture / Unknown 08/10/2019 8:26 AM CDT 08/10/2019 8:42 AM CDT Narrative [facility] ([facility]) - 08/11/2019 5:07 PM CDT Performed at: ??01 - [facility] [place] [id number] [place], [place] ??[id number] Air Brakes Inspector: Hang Zurita PhD, Phone: ??[phone] Juan Landry MD LAB - CHEMISTRY ORDFelton AKINS Performing Organization Address City/[facility]/ZIP Co de Phone Number [facility] ([facility]) [address] [place] [address], [facility] * (ABNORMAL) CYTOMEGALOVIRUS ANTIBODY IGG/IGM BLOOD (08/10/2019 8:26 AM CDT) Only the most recent of3 resultswithin the time period is included. Cytomegalovirus Antibody IgG >10.00(H) 0.00 - 0.59 U/mL 08/11/2019 8:09 AM CDT [facility] ([facility]) Comment: ? Negative ?<0.60 ? Equivocal ?? 0.60 - 0.69 ? Positive ?>0.69 Cytomegalovirus Antibody IgM <30.0 0.0 - 29.9 AU/mL 08/11/2019 8:09 AM CDT [facility] ([facility]) Comment: ?Negative ? <30.0 ?Equivocal ??30.0 - 34.9 ?Positive ? >34.9 A positive result is generally indicative of acute infection, reactivation or persistent IgM production. Blood BLOOD SPECIMEN / Unknown Lab Venipuncture / Unknown 08/10/2019 8:26 AM CDT 08/10/2019 8:41 AM CDT Narrative [facility] ([facility]) - 08/11/2019 8:09 AM CDT Performed at: ??[address] - [address], [place], [place] ??[id number] Air Brakes Inspector: Hang Zurita PhD, Phone: ??[phone] Juan Landry MD LAB - CHEMISTRY STEPHON AKINS [facility] ([facility]) [address] [place] [address], [facility] * BETTINA-MEDRANO VIRUS AB TO EARLY AG IGG (08/10/2019 8:26 AM CDT) Pathologist [facility] Bettina-Medrano Virus Early Antigen Antibody IgG <9.0 0.0 - 8.9 U/mL 08/11/2019 4:08 PM CDT [facility] ([facility]) Comment: ? Negative ?< 9.0 ? Equivocal ??9.0 - 10.9 ? Positive ?>10.9 Blood BLOOD SPECIMEN / Unknown Lab Venipuncture / Unknown 08/10/2019 8:26 AM CDT 08/10/2019 8:46 AM CDT Narrative [facility] ([facility]) - 08/11/2019 4:08 PM CDT Performed at: ??01 - [place] [id number] [place], [place] ??[id number] Air Brakes Inspector: Hang Zurita PhD, Phone: ??[phone] Juan Landry MD LAB - CHEMISTRY STEPHON AKINS [facility] ([facility]) [address] [place] [address], [facility] * HCV COMMENT (08/07/2019 3:07 PM CDT) Comment [facility] Comment: Non reactive HCV antibody screen is consistent with no HCV infection, unless recent infection is suspected or other evidence exists to indicate HCV infection. 08/07/2019 3:07 PM CDT 08/07/2019 Narrative Resulting Agency Comment [facility] performed at: [facility] [address] ??[facility] [phone] Adelfo Champion MD LAB - CHEMISTRY ORDE MABLE [facility] INSURANCE BILL [address] [place] [address] * HEPATITIS B + C PANEL (08/07/2019 3:07 PM CDT) Hepatitis Be Antigen Negative Negative [facility] INSURANCE BILL Hepatitis B Core Virus Antibody IgM Negative Negative [facility] INSURANCE BILL Hepatitis B Core Virus Antibody Total Negative Negative [facility] INSURANCE BILL Hepatitis Be Antibody Negative Negative [facility] INSURANCE BILL Hepatitis B Virus Surface Antibody Reactive [facility] INSURANCE BILL Comment: ? Non Reactive: Inconsistent with immunity, ? less than 10 mIU/mL ? Reactive: ? Consistent with immunity, ? greater than 9.9 mIU/mL Hepatitis C Antibody <0.1 0.0 - 0.9 s/co ratio [facility] INSURANCE BILL Blood BLOOD SPECIMEN / Unknown 08/07/2019 3:07 PM CDT 08/07/2019 Narrative Resulting Agency Comment Lab Testing performed at: [facility] [address] ??[facility] [phone] Adelfo Champion MD LAB - SEROLOGY ORDER HANNAH Performing Organization Address [facility]/ZIP Co de Phone Number [facility] INSURANCE BILL [address] [place] [address] * PROGESTERONE (08/07/2019 3:07 PM CDT) Progesterone 32.1 ng/mL [facility] INSURANCE BILL Comment: ?Follicular phase ? 0.1 - ?? 0.9 ?Luteal phase ? 1.8 - ??23.9 ?Ovulation phase ?0.1 - ??12.0 ? First trimester ?11.0 - ??44.3 ? Second trimester ?? 25.4 - ??83.3 ? Third trimester ?58.7 - 214.0 ?Postmenopausal ? 0.0 - ?? 0.1 Blood BLOOD SPECIMEN / Unknown 08/07/2019 3:07 PM CDT 08/07/2019 Narrative Resulting Agency Comment Lab Testing performed at: [facility] [address] [facility] ??[facility] [phone] Giovana Walker MD LAB - CHEMISTRY STEPHON AKINS Performing Organization Address [facility]/ZIP Co de Phone Number [facility] [address] [place] [address] * CHLAMYDIA + GC + TRICH DNA AMPL (08/03/2019 10:29 AM CDT) Chlamydia trachomatis HU Negative Negative [facility] INSURANCE BILL GC DNA Probe Negative Negative [facility] INSURANCE BILL Trichomonas vaginalis by HU Negative Negative [facility] INSURANCE BILL Microbiology ENTIRE ENDOCERVIX / Unknown 08/03/2019 10:29 AM CDT 08/03/2019 Narrative Resulting Agency Comment Lab Testing performed at: [address] ??[place] [phone] Giovana Walker MD LAB - MICROBIOLOGY O RDERABLES Performing Organization Address [facility] Co de Phone Number [facility] INSURANCE BILL [address] [place] [address] * BILIRUBIN DIRECT (06/29/2019 10:51 AM CDT) Only the most recent of93 resultswithin the time period is included. Bilirubin Direct 0.31 0.11 - 0.64 mg/dL 06/29/2019 11:40 AM CDT [facility] Blood BLOOD SPECIMEN / Unknown Lab Venipuncture / Unknown 06/29/2019 10:51 AM CDT 06/29/2019 11:11 AM CDT Biju Walker MD LAB - CHEMISTRY STEPHON AKINS [facility] [address] [place] [id number] * HGB HCT PANEL (08/02/2018 4:33 PM CDT) Only the most recent of9 resultswithin the time period is included. Hemoglobin 12.6 12.0 - 15.6 gm/dL 08/02/2018 4:59 PM CDT [facility] Hematocrit 37.6 35.9 - 45.5 % 08/02/2018 4:59 PM CDT [facility] Blood BLOOD SPECIMEN / Unknown Venipuncture / Unknown 08/02/2018 4:33 PM CDT 08/02/2018 4:40 PM CDT Biju Walker MD LAB - HEMATOLOGY ORD ERABLES [facility] [address] [place] [address] * NEEDLE BIOPSY, LIVER (08/02/2018 12:39 PM CDT) Report Endoscopy POC _ Patient Name: Lili Aguila ? Date of : 2000 ? Admit Type: Outpatient Age: 18 ? Gender: Female Ethnicity: Not or ? Race: White Attending MD: Biju Walker MD ? _ Procedure: ? Liver biopsy Indications: ? Abnormal Liver enzymes (no detail) Providers: ? Biju Walker MD Referring MD: ?Josiah Palacios MD Medicines: ? General anesthesia Complications: ? No immediate complications. Estimated blood loss: Minimal. _ Procedure: ? Informed consent was obtained. Aseptic technique was used. ? The point of maximal dullness was determined by ? percussion. 1% Lidocaine local anesthesia was injected. ? The depth of the liver was confirmed by spinal needle ? sounding.The liver biopsy was accomplished without ? difficulty. The patient tolerated the procedure fairly ? well. Findings: ? A 10 mm unfragmented core of tissue was obtained. The specimen was ? prepared with formalin and sent for histology. One pass was made with ? the BioPince gun using ultrasound to dionisio the site. Post Biopsy ? Ultrasound looked okay. Impression: ?- Tissue was submitted to pathology. Recommendation: ?- Please call GI office in 2 weeks for the results. ? Keep scheduled appointments. Please keep us informed of ? patient progress. ? Do not hesitate to call GI for any questions / concerns. ? Procedure Code(s): ? --- Professional --- ? 28813, Biopsy of liver, needle; percutaneous ? 93044, Ultrasonic guidance for needle placement (eg, biopsy, aspiration, ? injection, localization device), imaging supervision and interpretation ? --- Technical --- ? 52711, Biopsy of liver, needle; percutaneous ? 23977, Ultrasonic guidance for needle placement (eg, biopsy, aspiration, ? injection, localization device), imaging supervision and interpretation Diagnosis Code(s): ? --- Professional --- ? R74.9, Abnormal serum enzyme level, unspecified ? --- Technical --- ? R74.9, Abnormal serum enzyme level, unspecified CPT copyright 2017 [employer]. All rights reserved. The codes documented in this report are preliminary and upon microfilm duplicating unit supervisor review may be revised to meet current compliance requirements. Dr. Biju Walker Biju Walker MD 08/02/2018 12:24:00 PM This report has been signed electronically. Number of Addenda: 0 Note Initiated On: 08/01/2018 12:39 PM Procedure Date: ? 08/02/2018 12:39:00 PM ? This report has been signed electronically. [facility] 08/02/2018 12:3 9 PM CDT Biju Walker MD GI PROCEDURE ORDERAB LES [facility] [address] [place] [address] * US GUIDE NEEDLE PLACEMENT (08/02/2018 12:29 PM CDT) Only the most recent of7 resultswithin the time period is included. Narrative [facility] - 08/03/2018 12:10 PM CDT No Dictation. Biju Walker MD US ORDERABLES [facility] [address] [place] [address] * VIRAL CULTURE MISC (08/02/2018 12:21 PM CDT) Only the most recent of8 resultswithin the time period is included. Viral Culture No virus isolated. 08/11/2018 8:27 AM CDT [facility] ([facility]) Microbiology NEEDLE BIOPSY OF LIVER / Unknown Collection / Unknown 08/02/2018 12:21 PM CDT 08/02/2018 1:00 PM CDT Narrative [facility] ([facility]) - 08/11/2018 8:27 AM CDT Performed at: ??01 - [facility] [address] ??[id number] Air Brakes Inspector: Justin Stapleton MD, Phone: ??[phone] Biju Walker MD LAB - MICROBIOLOGY O RDERABLES Performing Organization Address City/[facility]/ZIP Co de Phone Number [facility] ([facility]) [address] [place] [address] * GROSS + MICRO EXAM (STL) (08/02/2018 12:16 PM CDT) Only the most recent of11 resultswithin the time period is included. Case Report Surgical Pathology Report ? Case: [id number] ? Authorizing Provider: ??Biju Walker MD ? Collected: ? 08/02/2018 12:16 PM ? Ordering Location: ? [facility] ?Received: ?08/02/2018 12:55 PM ? Pathologist: ? Tesfaye Beckman MD ? Specimen: ?Liver, do EM also ? 08/04/2018 4:47 PM [facility] Final Diagnosis Liver, Allograft, Percutaneous Needle Biopsy: - Mild portal inflammation, mild bile duct damage, and subendothelial inflammation (see comment). Comment: Though not definitive for mild acute rejection (there is no joy endotheliitis), the findings are consistent with mild acute rejection. Though the biopsy sample is small, there is no suggestion of ischemia. The Banff rejection activity index (portal inflammation + bile duct inflammation/damage + venous endothelial inflammation) is 1 + 1 + 1 = 3. The previous case ([id number]) has been reviewed: the current case shows less inflammation than the previous case. Preliminary results were reported to Dr. Walker on 08/03/18 at 5:00 p.m. 08/04/2018 4:47 PM [facility] Clinical History The patient is a 18-year-old woman, status post liver transplantation for hepatocellular carcinoma, who underwent liver biopsy (the requisition states that the patient underwent hepatic flexure biopsy ). Laboratory data (07/18/18) include AP of 315, ALT of 126, AST of 94, total protein of 7.3, albumin of 4.0, and total bilirubin of 0.8. Clinical differential diagnosis list includes acute rejection and ischemia. 08/04/2018 4:47 PM [facility] Gross Description Submitted fixed in formalin in one container for gross and microscopic examination labeled with the patient? s name, Lilifelton Aguila, and hepatic flexure bio [sic] is a 1 cm in length x 0.1 cm in diameter core of red-brown soft tissue and a 1 mm fragment of the same red-brown soft tissue. The specimen is submitted in toto as A1. Additionally submitted in a vial of glutaraldehyde labeled with the patient? s name is a 0.3 cm in length x 0.1 cm in diameter core of yellow-hale soft tissue. The specimen is held for possible ultrastructural analysis. (CT/na) 08/04/2018 4:47 PM [facility] Microscopic Description 2 H&E, 1 trichrome, 1 reticulin, 1 PAS, 1 PAS-diastase, 1 Prussian blue, 1 CMV. Sections show a needle core of liver parenchyma. There is mild expansion of portal tracts by mononuclear cells with rare eosinophils (portal inflammation score = 1). A minority of bile ducts are cuffed by inflammatory cells and show reactive changes (bile duct inflammation/damage score = 1). There is focal subendothelial lymphocytic infiltration with no joy endotheliitis (venous endothelial inflammation score = 1). The lobule shows a few small clusters of neutrophils and occasional glycogen nuclei. There is no zone 3 necrosis. Trichrome stain shows mild periportal fibrosis. Reticulin stain is negative for zone 3 hepatocellular atrophy. PAS stain shows abundant hepatocellular glycogen. PAS-diastase stain shows PAS-positive, diastase-resistant material in occasional sinusoidal lining cells and in occasional portal macrophages and is negative for alpha-1 antitrypsin globules. Prussian blue stain is negative for hepatocellular iron. Immunohistochemical staining for cytomegalovirus (CMV) is negative. 08/04/2018 4:47 PM [facility] Disclaimer The performance characteristics of all immunohistochemical and indirect immunofluorescence stains (if any) cited in this report were determined by the [facility] in compliance with Clinical Laboratory Improvement Amendments of 1988 (CLIA'88) regulations. Some of these tests rely on the use of analyte-specific reagents and are subject to specific labeling requirements by the U.S. Food and Drug Administration (FDA). Such tests were developed by the [facility] and have not been cleared or approved by the FDA. The FDA has determined that such clearance or approval is not necessary. These tests are used for clinical purposes and should not be regarded as investigational or for research. This case has been personally reviewed and interpreted by the attending (teaching) pathologist. 08/04/2018 4:47 PM CDT [facility] Embedded Images 08/04/2018 4:47 PM CDT [facility] Pathology/Cytolo gy ENTIRE LIVER / Unknown 08/02/2018 12:16 PM CDT 08/02/2018 12:55 PM CDT Biju Walker MD LAB - PATHOLOGY/CYTO LOGY ORDERABLES Performing Organization Address City/[facility]/ZIP Co de Phone Number [facility] [address] [place] [address] * PREPARE (CROSSMATCH) RBC UNIT(S), 1 Units (08/02/2018 11:00 AM CDT) Only the most recent of4 resultswithin the time period is included. Product Code [id number] [facility] Unit Donor # [id number] [facility] ABO Donor Type O [facility] Rh Type Unit POS [facility] Unit Status Ret'd [facility] ABO Rh Type Unit OPOS [facility] Donor Unit Expiration Date [id number] [facility] Blood Type Barcode [address] [facility] Blood Bank BLOOD SPECIMEN / Unknown 08/02/2018 11:00 AM CDT Biju Walker MD LAB - BLOOD BANK ORD ERABLES Performing Organization Address City/[facility]/ZIP Co de Phone Number [facility] [address] [place] [address] * US LIVER W DOPPLER (06/17/2018 11:14 AM SOLVENT PROCESS EXTRACTOR OPERATOR) Only the most recent of18 resultswithin the time period is included. Anatomical Region Laterality Modality Ultrasound Impressions 06/17/2018 12:01 PM SOLVENT PROCESS EXTRACTOR OPERATOR Normal sonographic appearance of transplant liver with patent vasculature. Parvus et tardus waveform of the right hepatic artery with decreased resistive indices indicative of a proximal stenosis. Dictated by Giuseppe Cleveland MD (manager of radiology). I, Leticia Sheppard, have personally reviewed the images and I agree with this report. 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 COMPARISON: Abdomen sonogram dated December 24, 2017. FINDINGS: The liver is normal in size and echotexture. The liver contour is smooth. There is no intrahepatic duct dilation. The gallbladder is absent. The common duct is not dilated. The kidneys are normal. The visible portions of the pancreas are normal. No ascites is present. The spleen measures 17.0 cm in length which is enlarged, but unchanged compared to the prior study. The visible portions of the intrahepatic inferior vena cava and upper abdominal aorta are normal. Color Doppler and spectral analysis were used to evaluate the hepatic vasculature. The main portal vein and the right and left branches have hepatopedal flow. The middle, right, and left hepatic veins are patent with antegrade flow. The inferior vena cava at the level of the liver is patent with appropriate directional flow. The visible main hepatic artery is patent with resistive index ranging between 0.52-0.59. The right hepatic artery remains patent, with persistent blunting of the systolic peaks when compared to the prior examination and resistive indices of 0.33-0.34. The left hepatic artery is patent with normal spectral waveform and resistive indices ranging from 0.58-0.61. The splenic artery and vein are patent. Biju Walker MD ORDERABLES * BETTINA-MEDRANO VIRUS PCR QUANTITATIVE WHOLE BLOOD (05/06/2018 9:16 AM SOLVENT PROCESS EXTRACTOR OPERATOR) Only the most recent of34 resultswithin the time period is included. Bettina-Medrano Virus DNA PCR Quantitative Negative Negative copies/mL 05/10/2018 6:16 AM SOLVENT PROCESS EXTRACTOR OPERATOR [facility] ([facility]) Comment: No EBV DNA detected. The quantitative range of this assay is 100 to 1 million copies/mL. This test was developed and its performance characteristics determined by [facility]. ??It has not been cleared or approved by the Food and Drug Administration. ??The FDA has determined that such clearance or approval is not necessary. Bettina-Medrano PCR Quant log 10 TNP day64phid/m L 05/10/2018 6:16 AM [facility]) Comment: Unable to calculate result since non-numeric result obtained for component test. Blood BLOOD SPECIMEN / Unknown Lab Venipuncture / Unknown 05/06/2018 9:16 AM SOLVENT PROCESS EXTRACTOR OPERATOR 05/06/2018 9:39 AM SOLVENT PROCESS EXTRACTOR OPERATOR Narrative [facility] ([facility]) - 05/10/2018 6:16 AM SOLVENT PROCESS EXTRACTOR OPERATOR Performed at: ??01 - [facility] ??[id number] Air Brakes Inspector: Justin Stapleton MD, Phone: ??[phone] Biju Walker MD LAB - SEROLOGY ORDER HANNAH Performing Organization Address [facility]/State/ZIP Co de Phone Number [facility] ([facility]) [address] [place] [address] * CYTOMEGALOVIRUS DNA RT PCR QUANT BLOOD (04/15/2018 10:31 AM SOLVENT PROCESS EXTRACTOR OPERATOR) Only the most recent of2 resultswithin the time period is included. [facility] Cytomegalovirus DNA Quantitative PCR Negative Negative IU/mL 04/20/2018 6:06 AM [facility] ([facility]) Comment: No CMV DNA detected. The quantitative range of this assay is 200 to 1 million IU/mL. This test was developed and its performance characteristics determined by [facility]. It has not been cleared or approved by the Food and Drug Administration. The FDA has determined that such clearance or approval is not necessary. log10 CMV QN DNA Plasma TNP log10 IU/mL 04/20/2018 6:06 AM [facility] ([facility]) Comment: Unable to calculate result since non-numeric result obtained for component test. Blood BLOOD SPECIMEN / Unknown Lab Venipuncture / Unknown 04/15/2018 10:31 AM SOLVENT PROCESS EXTRACTOR OPERATOR 04/15/2018 10:42 AM [facility] Narrative [facility] ([facility]) - 04/20/2018 6:06 AM SOLVENT PROCESS EXTRACTOR OPERATOR Performed at: ??01 - [address] ??[id number] Air Brakes Inspector: Justin Stapleton MD, Phone: ??[phone] Biju Walker MD LAB - CHEMISTRY STEPHON AKINS Performing Organization Address [facility]/ZIP Co de Phone Number [facility] ([facility]) [address] [place] [address] * VITAMIN D (25-HYDROXY) (04/15/2018 10:31 AM [facility]) Only the most recent of10 resultswithin the time period is included. Pathologist [facility] Vitamin D, 25 Hydroxy 30.4 20 - 100 ng/mL 04/15/2018 12:43 PM [facility] Blood BLOOD SPECIMEN / Unknown Lab Venipuncture / Unknown 04/15/2018 10:31 AM SOLVENT PROCESS EXTRACTOR OPERATOR 04/15/2018 10:42 AM [facility] Narrative [facility] - 04/15/2018 12:43 PM [facility] Vitamin D Status: ?Deficient ? <10 ?? ng/mL ? Borderline ?10-20 ng/mL ?Sufficient ?>20 ?? ng/mL ?Toxic ? >100 ??ng/mL Biju Walker MD LAB - CHEMISTRY STEPHON AKINS Performing Organization Address [facility] Co de Phone Number [facility] [address] [place] [address] * ALPHA FETOPROTEIN BLOOD TUMOR (04/15/2018 10:31 AM [facility]) Only the most recent of2 resultswithin the time period is included. Pathologist [facility] Alpha-Fetoprotei n Tumor Marker 4.9 0.0 - 8.3 ng/mL 04/16/2018 4:10 AM [facility] ([facility]) Comment:Melodie ECLIA methodol ogy Blood BLOOD SPECIMEN / Unknown Lab Venipuncture / Unknown 04/15/2018 10:31 AM SOLVENT PROCESS EXTRACTOR OPERATOR 04/15/2018 10:42 AM [facility] Narrative [facility] ([facility]) - 04/16/2018 4:10 AM SOLVENT PROCESS EXTRACTOR OPERATOR Performed at: ??01 - [facility] [place] [address] [place], [place] ??[id number] Air Brakes Inspector: Hang Zurita PhD, Phone: ??[phone] Biju Walker MD LAB - CHEMISTRY ORDE MABLE [facility] ([facility]) [address] [place] [address] * (ABNORMAL) DIFFERENTIAL MANUAL (03/07/2018 8:44 AM SOLVENT PROCESS EXTRACTOR OPERATOR) Only the most recent of77 resultswithin the time period is included. WBC Auto 6.0 x10E9/L 03/07/2018 11:37 AM [facility] WBC Corrected 4.5 - 11.0 x10E9/L 03/07/2018 11:37 AM [facility] nRBC /100 WBC 03/07/2018 11:37 AM [facility] Neutrophil % Manual 59 31 - 78 % 03/07/2018 11:37 AM [facility] Lymphocytes % Manual 25 13 - 54 % 03/07/2018 11:37 AM [facility] Monocytes % Manual 9 4 - 13 % 03/07/2018 11:37 AM [facility] Eosinophils % Manual 3 0 - 8 % 03/07/2018 11:37 AM [facility] Atypical Lymphocyte % Manual 4(H) <=0 % 03/07/2018 11:37 AM [facility] Cells Counted 100 # cells 03/07/2018 11:37 AM [facility] Platelet Estimation Adequate platelets Normal, Adequate platelets 03/07/2018 11:37 AM [facility] RBC Morphology Normal 03/07/2018 11:37 AM [facility] WBC Morph Normal 03/07/2018 11:37 AM [facility] Blood BLOOD SPECIMEN / Unknown Lab Venipuncture / Unknown 03/07/2018 8:44 AM SOLVENT PROCESS EXTRACTOR OPERATOR 03/07/2018 8:53 AM SOLVENT PROCESS EXTRACTOR OPERATOR Biju Walker MD LAB - HEMATOLOGY ORD ERAFANNY [facility] [place] [address] * FL ENDO NASAL SINUS BX POLYP DEBRID ANTONIO (12/09/2017 11:57 AM CDT) Narrative Max Mayen MD - 12/09/2017 11:57 AM CDT Filippo Todd MD ? 12/09/2017 11:42 AM Procedure: Rigid Nasal Sinus Endoscopy Procedure date: 12/09/2017 Pre Op Dx: nasal crusting Post Op Dx: same Attending: Dr. Mayen Resident: Filippo Todd MD Anesthesia: Bilateral Nasal Cavities sprayed with Lidocaine and Neosynephrine Detail: ??Rigid nasal endoscopy performed bilaterally. ??Septum was relatively midline. ??Right nasal cavity showed mucous and minor crusting that were removed, there were no polyps or purulence. ?? Left nasal cavity showed healing area on anterior septum from prior cauterization not actively bleeding, mucous and minor crusting that were removed, there were no polyps or purulence. Patient tolerated procedure well with no immediate complications. Dr. Mayen was present for the entire procedure. Filippo Todd MD 12/09/17 Filippo Todd MD PROCEDURE/MINOR SURG ICAL ORDERABLES * FL CTRL NOSEBLEED,ANTER,COMPLEX (11/29/2017 1:33 PM CDT) Narrative Max Mayen MD - 11/29/2017 1:33 PM CDT Max Mayen MD ? 11/29/2017 ??1:33 PM Due to the findings on physical examination, in correlation with the patient's symptomatology, the decision was made to perform a procedure today in clinic. Consent obtained prior to starting procedure. Procedure Note: Pre Op Dx: Epistaxis, anterior with pulsating artery Post Op Dx: same Procedure performed: Control of nosebleed, anterior, complex due to pulsating artery requiring cautery, suction, packing, pressure Surgeon: Tiarra Procedure in detail: Lili Aguila is a 17 y.o. female with a history of epistaxis who presented today with a chief complaint of bleeding from left nare(s). The risks, benefits, alternatives, and indications of the procedure were discussed in great detail and the patient understood these and wished to proceed. The patient has been unsuccessful in treating topically with moisturizing agents and pressure. First, the nose was inspected. There were a few prominent vessels identified in the region of Kesselbach's plexus. These were cauterized using silver nitrate sticks. Then a pulsating artery requiring cautery, suction, packing, pressure was encountered. Bleeding was controlled with good hemostasis. The patient will continue to use topical moisturizing agents while healing. I (Dr. Mayen), was present for the entire procedure and can verify that the patient tolerated the procedure well. Max Mayen MD PROCEDURE/MINOR HAYDEN RGICAL ORDERABLES * CYTOMEGALOVIRUS DNA RT-PCR QUANT (08/30/2017 7:27 AM CDT) Only the most recent of22 resultswithin the time period is included. Cytomegalovirus DNA Quantitative PCR Negative Negative IU/mL 09/01/2017 3:21 PM CDT [facility] ([facility]) Comment: No CMV DNA detected. The quantitative range of this assay is 200 to 1 million IU/mL. This test was developed and its performance characteristics determined by [facility]. It has not been cleared or approved by the Food and Drug Administration. The FDA has determined that such clearance or approval is not necessary. log10 CMV QN DNA Plasma TNP log10 IU/mL 09/01/2017 3:21 PM CDT [facility]) Comment: Unable to calculate result since non-numeric result obtained for component test. Blood BLOOD SPECIMEN / Unknown Lab Venipuncture / Unknown 08/30/2017 7:27 AM CDT 08/30/2017 8:17 AM CDT Narrative [facility] ([facility]) - 09/01/2017 3:21 PM CDT Performed at: ??01 - [address] ??[id number] Air Brakes Inspector: Hair Bryant MD, Phone: ??[phone] Biju Walker MD LAB - MICROBIOLOGY O RDERABLES [facility] ([facility]) [address] [place] [address] * PARVOVIRUS B19 PCR QUANT (07/29/2017 8:28 AM CDT) Pathologist [facility] Parvovirus B19 PCR Negative Negative copies/mL 08/03/2017 2:13 PM [facility]) Comment: No Parvovirus B19 DNA detected. The quantitative range of this assay is 500 to 10 million copies/mL. This test was developed and its performance characteristics determined by [facility]. It has not been cleared or approved by the Food and Drug Administration. The FDA has determined that such clearance or approval is not necessary. log10 Parvo PCR TNP dqc17nuxm/m L 08/03/2017 2:13 PM CDT [facility] ([facility]) Comment: Unable to calculate result since non-numeric result obtained for component test. Blood BLOOD SPECIMEN / Unknown Lab Venipuncture / Unknown 07/29/2017 8:28 AM CDT 07/29/2017 8:32 AM CDT [facility]ative [facility]) - 08/03/2017 2:13 PM CDT Performed at: ??01 - [address] ??[id number] Air Brakes Inspector: Hair Bryant MD, Phone: ??[phone] Jessica Ruano MD LAB - SEROLOGY OR DERABLES Performing Organization Address City/[facility]/ZIP Co de Phone Number [facility] ([facility]) [address] [place] [address] * HERPES VIRUS 6 DNA QUAL PCR (07/29/2017 8:28 AM CDT) [facility] Herpesvirus 6 DNA Qualitative RT-PCR See Scanned Report 08/02/2017 1:03 AM CDT [facility] Other BLOOD SPECIMEN / Unknown Lab Venipuncture / Unknown 07/29/2017 8:28 AM CDT 07/29/2017 8:32 AM CDT Jessica Ruano MD LAB - SEROLOGY OR DERABLES [facility] [place] [address] * RESPIRATORY PATHOGEN PANEL BY PCR (07/28/2017 3:26 PM CDT) [facility] Adenovirus PCR Not detected Not detected, Invalid, Indeterminate 07/28/2017 11:29 PM [facility] Human Metapneumovirus PCR Not detected Not detected, Invalid, Indeterminate 07/28/2017 11:29 PM [facility] Human Rhinovirus/Entero virus PCR Not detected Not detected, Invalid, Indeterminate 07/28/2017 11:29 PM [facility] Influenza A Non Subtyped PCR Not detected Not detected, Invalid, Indeterminate 07/28/2017 11:29 PM [facility] Influenza A H1 PCR Not detected Not detected, Invalid, Indeterminate 07/28/2017 11:29 PM [facility] Influenza A H3 PCR Not detected Not detected, Invalid, Indeterminate 07/28/2017 11:29 PM [facility] Influenza A H1 2009 PCR Not detected Not detected, Invalid, Indeterminate 07/28/2017 11:29 PM [facility] Influenza B PCR Not detected Not detected, Invalid, Indeterminate 07/28/2017 11:29 PM [facility] Mycoplasma pneumoniae PCR Not detected Not detected, Invalid, Indeterminate 07/28/2017 11:29 PM [facility] Parainfluenza Virus 1 PCR Not detected Not detected, Invalid, Indeterminate 07/28/2017 11:29 PM [facility] Parainfluenza Virus 2 PCR Not detected Not detected, Invalid, Indeterminate 07/28/2017 11:29 PM [facility] Parainfluenza Virus 3 PCR Not detected Not detected, Invalid, Indeterminate 07/28/2017 11:29 PM [facility] Parainfluenza Virus 4 PCR Not detected Not detected, Invalid, Indeterminate 07/28/2017 11:29 PM [facility] Respiratory Syncytial Virus PCR Not detected Not detected, Invalid, Indeterminate 07/28/2017 11:29 PM [facility] Bordetella pertussis PCR Not detected Not detected, Invalid 07/28/2017 11:29 PM [facility] Coronavirus PCR Not detected Not detected, Invalid, Indeterminate 07/28/2017 11:29 PM [facility] Microbiology NASOPHARYNGEAL SWAB / Unknown Collection / Unknown 07/28/2017 3:26 PM CDT 07/28/2017 3:34 PM [facility] - 07/28/2017 11:29 PM CDT Coronavirus PCR detects the following coronaviruses: 229E, HKU1, NL63, OC43. Jojo Graf DO LAB - MICROB IOLOGY ORDERABLES [facility] [address] [place] [address], [facility] [phone] * OCCULT BLOOD FECES (07/28/2017 3:26 PM CDT) [facility] Occult Blood Negative Negative 07/28/2017 4:12 PM CDT [facility] Stool STOOL SPECIMEN / Unknown Collection / Unknown 07/28/2017 3:26 PM CDT 07/28/2017 3:34 PM CDT Angelika L Kalin DO LAB - BODY FLUID ORD ERABLES Performing Organization Address City/[facility] Co de Phone Number [facility] [place] [address] * CYTOMEGALOVIRUS DNA RT-PCR QUANT (VIRACOR) (07/28/2017 8:24 AM CDT) Only the most recent of2 resultswithin the time period is included. [facility] Cytomegalovirus DNA Quantitative PCR See Scanned Report 07/30/2017 1:00 PM CDT [facility] Other BLOOD SPECIMEN / Unknown Lab Venipuncture / Unknown 07/28/2017 8:24 AM CDT 07/28/2017 8:28 AM CDT Anjelica Hang Sadi DO LAB - SEROLOGY ORDER HANNAH Performing Organization Address City/[facility] Co de Phone Number [facility] [address] [place] [address] * HLA SINGLE BEAD TEST PANEL (07/28/2017 8:24 AM CDT) Only the most recent of4 resultswithin the time period is included. [facility] HLA Single Bead Test See Scanned Report 08/05/2017 7:43 PM CDT [facility] Blood BLOOD SPECIMEN / Unknown Lab Venipuncture / Unknown 07/28/2017 8:24 AM CDT 07/28/2017 8:29 AM CDT Anjelica Avitia DO LAB - SEROLOGY ORDER HANNAH [facility] [address] [place] [address], [facility] [phone] * CULTURE MRSA (07/27/2017 9:38 PM CDT) Only the most recent of2 resultswithin the time period is included. Culture Negative for methicillin-resist ant Staphylococcus aureus (MRSA) IZABELA 07/29/2017 8:17 AM CDT [facility] Microbiology SPECIMEN FROM NASAL FOSSAE / Unknown Collection / Unknown 07/27/2017 9:38 PM CDT 07/27/2017 10:24 PM CDT Anjelica Avitia DO LAB - MICROBIOLOGY O RDERABLES Performing Organization Address City/[facility]/ZIP Co de Phone Number [facility] [address] [place] [address], [facility] [phone] * XR CHEST 1VW (07/27/2017 5:53 PM CDT) Only the most recent of4 resultswithin the time period is included. Anatomical Region Laterality Modality Chest Radiographic Joanne ging 07/28/2017 7:21 AM CDT Impressions 07/28/2017 7:30 AM CDT Clear lungs. Dictated by Tho Bliss MD (manager of radiology). I, Kwadwo Zapata, have personally reviewed the images and I agree with this report. 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 FINDINGS: A right upper extremity approach central venous catheter has been removed, and a new left upper extremity approach central venous catheter terminates at the confluence of the brachiocephalic veins. The lungs are clear. There is no evidence of pleural effusion or pneumothorax. The mediastinal and cardiac silhouettes are normal. 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 FINDINGS: A right upper extremity approach central venous catheter has been removed, and a new left upper extremity approach central venous catheter terminates at the confluence of the brachiocephalic veins. The lungs are clear. There is no evidence of pleural effusion or pneumothorax. The mediastinal and cardiac silhouettes are normal. IMPRESSION Clear lungs. Dictated by Tho Bliss MD (manager of radiology). I, Kwadwo Zapata, have personally reviewed the images and I agree with this report. Missy Jaffe MD DIAGNOSTIC IMAGING O RDERABLES * CULTURE BLOOD (07/27/2017 4:57 PM CDT) Only the most recent of8 resultswithin the time period is included. [facility] Culture No growth day 5 IZABELA 08/01/2017 9:00 PM CDT [facility] Blood BLOOD SPECIMEN / Unknown Line Draw / Unknown 07/27/2017 4:57 PM CDT 07/27/2017 5:14 PM CDT Cecelia Oden MD LAB - MICROBIOLOGY O RDLOVE [facility] [address] [place] [address], [facility] [phone] * (ABNORMAL) URINALYSIS W/MICROSCOPIC REFLEX TO CULTURE (07/27/2017 4:08 PM CDT) Only the most recent of2 resultswithin the time period is included. Color UA Anjelica(A) Straw, Yellow 07/27/2017 4:36 PM CDT [facility] Clarity UA Slt Cloudy(A) Clear 07/27/2017 4:36 PM CDT [facility] Glucose UA Negative Negative 07/27/2017 4:36 PM CDT [facility] Bilirubin UA Negative Negative 07/27/2017 4:36 PM T [facility] Ketone UA Negative Negative 07/27/2017 4:36 PM T [facility] Specific [place] UA 1.015 1.005 - 1.030 07/27/2017 4:36 PM T [facility] Blood UA Negative Negative 07/27/2017 4:36 PM T [facility] pH UA 5.0 5.0 - 8.0 pH 07/27/2017 4:36 PM T [facility] Protein UA Negative Negative 07/27/2017 4:36 PM T [facility] Urobilinogen UA Negative Negative mg/dL 07/27/2017 4:36 PM T [facility] Nitrite UA Negative Negative 07/27/2017 4:36 PM T [facility] Leukocyte UA Negative Negative 07/27/2017 4:36 PM T [facility] RBC UA 0-5 0-5, None Seen # /hpf 07/27/2017 4:36 PM T [facility] WBC UA 0-5 0-5, None Seen # /hpf 07/27/2017 4:36 PM T [facility] Bacteria UA Trace(A) None Seen 07/27/2017 4:36 PM T [facility] Squamous Epithelial Cells 0-2 None Seen, 0-2, 3-5 /hpf 07/27/2017 4:36 PM T [facility] Hyaline Casts 0-2 None Seen, 0-2 # /lpf 07/27/2017 4:36 PM [facility] Reflex Status Culture not indicated 07/27/2017 4:36 PM [facility] Urine URINE SPECIMEN OBTAINED BY CLEAN CATCH PROCEDURE / Unknown Collection / Unknown 07/27/2017 4:08 PM CDT 07/27/2017 4:28 PM CDT Narrative [facility] - 07/27/2017 4:36 PM CDT Kiel Martinez DO LAB - URINALYSIS ORD ERABLES [facility] [address] [place] [address] * EKG 15-LEAD (07/27/2017 11:54 AM CDT) Only the most recent of3 resultswithin the time period is included. Ventricular Rate 112 BPM CG MUSE Atrial Rate 112 BPM CG MUSE P-R Interval 122 ms CG MUSE QRS Duration ms 84 ms CG MUSE Q-T Interval ms 312 ms CG MUSE QTC Calculation (Bezet) 423 ms CG MUSE Calculated P Spur 80 degrees CG MUSE Calculated R Spur 53 degrees CG MUSE Calculated T Spur 16 degrees CG MUSE Interpretation EKG Sinus tachycardia Otherwise normal ECG When compared with ECG of 25-AUG-2012 21:37, Sinus tachycardia present. Confirmed by CODY HUTSON ([id number]) on 08/02/2017 3:09:16 PM CG MUSE 07/27/2017 11:5 4 AM CDT 08/02/2017 3:09 PM CDT Kiel Martinez DO ECG ORDERABLES CG MUSE * CT HEAD WO CONTRAST (07/27/2017 11:38 AM CDT) Only the most recent of2 resultswithin the time period is included. Anatomical Region Laterality Modality Head Computed Tomogra phy 07/27/2017 12:0 0 PM CDT Impressions 07/27/2017 12:15 PM CDT 1. No acute intracranial process. Narrative 07/27/2017 12:15 PM CDT EXAMINATION: Head CT without contrast. HISTORY: Syncope and collapse TECHNIQUE: Axial CT images of the head were obtained from the skullbase to vertex without intravenous contrast. DOSE: CTDI: 36.17 mGy, DLP: 725.79 mGy.cm COMPARISON: Comparison 01/19/2012. FINDINGS: There is no evidence of acute intracranial hemorrhage or acute infarct. There is no mass effect or midline shift. The ventricles are normal in size and configuration. The basal cisterns are patent. There is no intra-axial or extra-axial fluid collection. The pierre-white matter differentiation is preserved. The visualized portions of the orbits, globes, paranasal sinuses and mastoids are normal. No acute fracture-dislocations are identified. 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 Procedure Note Wily Sandhu MD - 07/27/2017 EXAMINATION: Head CT without contrast. HISTORY: Syncope and collapse TECHNIQUE: Axial CT images of the head were obtained from the skullbase to vertex without intravenous contrast. DOSE: CTDI: 36.17 mGy, DLP: 725.79 mGy.cm COMPARISON: Comparison 01/19/2012. FINDINGS: There is no evidence of acute intracranial hemorrhage or acute infarct. There is no mass effect or midline shift. The ventricles are normal in size and configuration. The basal cisterns are patent. There is no intra-axial or extra-axial fluid collection. The pierre-white matter differentiation is preserved. The visualized portions of the orbits, globes, paranasal sinuses and mastoids are normal. No acute fracture-dislocations are identified. 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 IMPRESSION 1. No acute intracranial process. Kiel Martinez DO CT ORDERABLES * PTT (07/27/2017 11:22 AM CDT) Only the most recent of2 resultswithin the time period is included. Pathologist [facility] PTT 22.9 21.0 - 32.0 sec 07/27/2017 12:44 PM CDT [facility] Blood BLOOD SPECIMEN / Unknown Venipuncture / Unknown 07/27/2017 11:22 AM CDT 07/27/2017 11:33 AM CDT Narrative [facility] - 07/27/2017 12:44 PM CDT Heparin Therapeutic Range for PTT: 47.7 - 68.6 seconds. Kiel Martinez DO LAB - COAGULATION OR DERABLES [facility] [address] [phone] * (ABNORMAL) CK BLOOD (07/27/2017 11:22 AM CDT) Pathologist [facility] CK <7(L) 29 - 168 U/L 07/27/2017 11:54 AM CDT [facility] Blood BLOOD SPECIMEN / Unknown Venipuncture / Unknown 07/27/2017 11:22 AM CDT 07/27/2017 11:42 AM CDT Kiel Martinez DO LAB - CHEMISTRY STEPHON AKINS [facility] [place] [address] * NEEDLE BIOPSY, LIVER (07/23/2017 6:31 AM CDT) Report Endoscopy POC _ Patient Name: Lili Aguila ? Date of : 2000 ? Admit Type: Inpatient Age: 17 ? Gender: Female Attending MD: Biju Walker MD ?Order #: [id number] _ Procedure: ? Liver biopsy Indications: ? Abnormal Liver enzymes (no detail) Providers: ? Biju Walker MD Referring MD: ?Josiah Palacios MD Medicines: ? General anesthesia Complications: ? No immediate complications. Estimated blood loss: Minimal. _ Procedure: ? Informed consent was obtained. Aseptic technique was used. ? The point of maximal dullness was determined by ? percussion. 1% Lidocaine local anesthesia was injected. ? The depth of the liver was confirmed by spinal needle ? sounding. The liver biopsy was accomplished without ? difficulty. The patient tolerated the procedure fairly ? well. Findings: ? A 10 mm unfragmented core of tissue was obtained. The specimen was ? prepared with formalin and sent for histology. Estimated blood loss was ? minimal. One pass was made with the BioPince gun using ultrasound to ? dionisio the site. Post biopsy ultrasound looked okay. Impression: ?- Tissue was submitted to pathology. Recommendation: ?- Please call GI office in 2 weeks for the results. ? Keep scheduled appointments. Please keep us informed of ? patient progress. ? Do not hesitate to call GI for any questions / concerns. ? Procedure Code(s): ? --- Professional --- ? 65321, Biopsy of liver, needle; percutaneous ? 69671, Ultrasonic guidance for needle placement (eg, biopsy, aspiration, ? injection, localization device), imaging supervision and interpretation ? --- Technical --- ? 44295, Biopsy of liver, needle; percutaneous ? 81642, Ultrasonic guidance for needle placement (eg, biopsy, aspiration, ? injection, localization device), imaging supervision and interpretation Diagnosis Code(s): ? --- Professional --- ? R74.9, Abnormal serum enzyme level, unspecified ? --- Technical --- ? R74.9, Abnormal serum enzyme level, unspecified CPT copyright 2015 [employer]. All rights reserved. The codes documented in this report are preliminary and upon microfilm duplicating unit supervisor review may be revised to meet current compliance requirements. Dr. Biju Walker Biju Walker MD 07/23/2017 1:20:15 PM This report has been signed electronically. Number of Addenda: 0 Note Initiated On: 07/22/2017 6:31 AM Procedure Date: ? 07/23/2017 6:31:00 AM ? This report has been signed electronically. [facility] 07/23/2017 6:31 AM CDT Biju Walker MD GI PROCEDURE ORDERAB LES Performing Organization Address City/State/[facility] Co de Phone Number [facility] [address] [facility] [place] [address] * HCG URINE QUALITATIVE (07/22/2017 9:17 PM CDT) Only the most recent of7 resultswithin the time period is included. hCG Qualitative Urine Negative Negative 07/22/2017 9:31 PM CDT [facility] Urine URINE / Unknown Collection / Unknown 07/22/2017 9:17 PM CDT 07/22/2017 9:23 PM CDT Missy Jaffe MD LAB - URINALYSIS ORD ERABLES [facility] [place] [address] * XR CHEST FOR PICC PLMT (07/16/2017 12:30 PM CDT) Only the most recent of3 resultswithin the time period is included. Anatomical Region Laterality Modality Radiographic Joanne ging 07/16/2017 12:4 3 PM CDT Impressions 07/16/2017 12:45 PM CDT Right upper extremity PICC tip over the right atrium; this may be artificially low due to hypoinflation and projection of the image. Diffuse hazy pulmonary opacity likely represents atelectasis and/or edema. 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 Interval removal of left upper extremity PICC. Decreased lung volumes with diffuse hazy opacity with suggestion of interstitial thickening. No pleural effusion or pneumothorax. Increased heart size related to hypoinflation. Osseous structures are normal for age. 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 Interval removal of left upper extremity PICC. Decreased lung volumes with diffuse hazy opacity with suggestion of interstitial thickening. No pleural effusion or pneumothorax. Increased heart size related to hypoinflation. Osseous structures are normal for age. IMPRESSION Right upper extremity PICC tip over the right atrium; this may be artificially low due to hypoinflation and projection of the image. Diffuse hazy pulmonary opacity likely represents atelectasis and/or edema. Biju Walker MD DIAGNOSTIC IMAGING O RDERABLES * HCG URINE QUALITATIVE - POCT (IP) BEAKER (07/14/2017 10:00 AM CDT) Only the most recent of8 resultswithin the time period is included. HCG Qual Urine Negative Negative [facility] QC Verified Yes Yes [facility] PO CT TESTING Urine URINE / Unknown 07/14/2017 1 0:00 AM CDT Biju Walker MD LAB - POINT OF CARE ORDERABLES Performing Organization Address City/State/[facility] de Phone Number [facility] [address] [facility] [place] [address], [facility] [phone] * NEEDLE BIOPSY, LIVER (07/14/2017 8:55 AM CDT) Report Endoscopy POC _ Patient Name: Lili Aguila ? Date of : 2000 ? Admit Type: Outpatient Age: 17 ? Gender: Female Attending MD: Biju Walker MD ? _ Procedure: ? Liver biopsy Indications: ? Abnormal Liver enzymes (no detail) Providers: ? Biju Walker MD Referring MD: ?Josiah Palacios MD Medicines: ? General anesthesia Complications: ? No immediate complications. Estimated blood loss: Minimal. _ Procedure: ? Informed consent was obtained. Aseptic technique was used. ? The point of maximal dullness was determined by ? percussion. 1% Lidocaine local anesthesia was injected. ? The depth of the liver was confirmed by spinal needle ? sounding. The liver biopsy was accomplished without ? difficulty. The patient tolerated the procedure fairly ? well. Findings: ? A 10 mm unfragmented core of tissue was obtained. The specimen was ? prepared with formalin and sent for histology. One pass was made with ? the BioPince gun using ultrasound to dionisio the site. Post biopsy ? ultrasound looked okay. Impression: ?- Tissue was submitted to pathology. Recommendation: ?- Please call GI office in 2 weeks for the results. ? Keep scheduled appointments. Please keep us informed of ? patient progress. ? Do not hesitate to call GI for any questions / concerns. ? Procedure Code(s): ? --- Professional --- ? 11543, Biopsy of liver, needle; percutaneous ? 26344, Ultrasonic guidance for needle placement (eg, biopsy, aspiration, ? injection, localization device), imaging supervision and interpretation ? --- Technical --- ? 64373, Biopsy of liver, needle; percutaneous ? 01270, Ultrasonic guidance for needle placement (eg, biopsy, aspiration, ? injection, localization device), imaging supervision and interpretation Diagnosis Code(s): ? --- Professional --- ? R74.9, Abnormal serum enzyme level, unspecified ? --- Technical --- ? R74.9, Abnormal serum enzyme level, unspecified CPT copyright 2015 [employer]. All rights reserved. The codes documented in this report are preliminary and upon microfilm duplicating unit supervisor review may be revised to meet current compliance requirements. Dr. Biju Walker Biju Walker MD 07/14/2017 12:27:14 PM This report has been signed electronically. Number of Addenda: 0 Note Initiated On: 07/13/2017 8:55 AM Procedure Date: ? 07/14/2017 8:55:00 AM ? This report has been signed electronically. [facility] 07/14/2017 8:55 AM CDT Biju Walker MD GI PROCEDURE ORDERAB LES Performing Organization Address City/State/[facility] Co de Phone Number [facility] [address] [place] [address] * NEEDLE BIOPSY, LIVER (06/03/2017 7:37 AM SOLVENT PROCESS EXTRACTOR OPERATOR) Report Endoscopy POC _ Patient Name: Lili Aguila ? Date of : 2000 ? Admit Type: Outpatient Age: 17 ? Gender: Female Attending MD: Biju Walker MD ?Order #: [id number] _ Procedure: ? Liver biopsy Indications: ? Abnormal Liver enzymes (no detail) Providers: ? Biju Walker MD Referring MD: ?Josiah Palacios MD Medicines: ? 1% Lidocaine mL SubQ, General anesthesia Complications: ? No immediate complications. Estimated blood loss: Minimal. _ Procedure: ? Informed consent was obtained. Aseptic technique was used. ? The point of maximal dullness was determined by ? percussion. 1% Lidocaine local anesthesia was injected. ? The depth of the liver was confirmed by spinal needle ? sounding. The liver biopsy was accomplished without ? difficulty. The patient tolerated the procedure fairly ? well. Findings: ? Two 8-11 mm unfragmented cores of tissue obtained. The specimen was sent ? for histology. The SocialCompare[employer] gun was used with ultrasound to dionisio the ? site. Post biopsy ultrasound looked okay. Impression: ?- Tissue was submitted to pathology. Recommendation: ?- Please call GI office in 2 weeks for the results. ? Keep scheduled appointments. Please keep us informed of ? patient progress. ? Do not hesitate to call GI for any questions / concerns. ? Procedure Code(s): ? --- Professional --- ? 62990, Biopsy of liver, needle; percutaneous ? --- Technical --- ? 31511, Biopsy of liver, needle; percutaneous Diagnosis Code(s): ? --- Professional --- ? R74.9, Abnormal serum enzyme level, unspecified ? --- Technical --- ? R74.9, Abnormal serum enzyme level, unspecified CPT copyright 2015 [employer]. All rights reserved. The codes documented in this report are preliminary and upon microfilm duplicating unit supervisor review may be revised to meet current compliance requirements. Dr. Biju Walker Biju Walker MD 06/03/2017 12:35:22 PM This report has been signed electronically. Number of Addenda: 0 Note Initiated On: 06/02/2017 7:37 AM Procedure Date: ? 06/03/2017 7:37:00 AM ? This report has been signed electronically. [facility] 06/03/2017 7:37 AM SOLVENT PROCESS EXTRACTOR OPERATOR Biju Walker MD GI PROCEDURE ORDERAB LES Performing Organization Address City/State/[facility] Co de Phone Number [facility] [address] [place] [address] * BK VIRUS PCR QUANTITATIVE URINE (05/25/2017 8:07 AM SOLVENT PROCESS EXTRACTOR OPERATOR) BK Virus Quantitative Source Urine Urine 05/27/2017 10:16 PM SOLVENT PROCESS EXTRACTOR OPERATOR [employer] ([facility]) BK Virus Quantitative Urine <390 cpy/mL 05/27/2017 10:16 PM SOLVENT PROCESS EXTRACTOR OPERATOR [facility] [employer] ([facility]) BK Virus DNA Quantitative Log Copy/mL Urine <2.6 log cpy/mL 05/27/2017 10:16 PM SOLVENT PROCESS EXTRACTOR OPERATOR [employer] ([facility]) Interp BK Virus Quant Urine Not Detected Not Detected 05/27/2017 10:16 PM SOLVENT PROCESS EXTRACTOR OPERATOR [employer] ([facility]) Comment: INTERPRETIVE DATA: BK Virus Detection by PCR, Urine The quantitative range of this assay is 2.6-8.6 log copies/mL (390-390,000,000 copies/mL). A negative result (less than 2.6 log copies/mL or less than 390 copies/mL) does not rule out the presence of PCR inhibitors in the patient specimen or BK virus DNA concentrations below the level of detection of the assay. Inhibition may also lead to underestimation of viral quantitation. No international standard is currently available for calibration of this assay. Caution should be taken when interpreting results generated by different assay methodologies. Test developed and characteristics determined by [facility]. See Compliance Statement A: Acision.Plan B Acqusitions/CS Performed by [facility], [address] [place] [address] [email or web address], Theodore Diane MD, Lab. Director Urine URINE / Unknown Collection / Unknown 05/25/2017 8:07 AM SOLVENT PROCESS EXTRACTOR OPERATOR 05/25/2017 10:40 AM SOLVENT PROCESS EXTRACTOR OPERATOR Biju Walker MD LAB - MICROBIOLOGY O RDERABLES [employer] ([facility]) [address] [place], [place] [id number] [place] [address] * HERPES VIRUS 6 QUANT RT PCR (05/25/2017 7:07 AM SOLVENT PROCESS EXTRACTOR OPERATOR) [facility] Human Herpesvirus 6 Quant PCR See Scanned Report 05/27/2017 7:27 AM SOLVENT PROCESS EXTRACTOR OPERATOR [facility] Other BLOOD SPECIMEN / Unknown Collection / Unknown 05/25/2017 7:07 AM SOLVENT PROCESS EXTRACTOR OPERATOR 05/25/2017 7:39 AM SOLVENT PROCESS EXTRACTOR OPERATOR Biju Walker MD LAB - SEROLOGY ORDER HANNAH Performing Organization Address City/[facility]/ZIP Co de Phone Number [facility] [place] [address] * HEPATITIS SCREEN ACUTE (05/25/2017 7:07 AM SOLVENT PROCESS EXTRACTOR OPERATOR) Only the most recent of4 resultswithin the time period is included. Pathologist [facility] HAV Antibody IgM Non Reactive Non Reactive 05/25/2017 9:03 AM [facility] HBsAg Non Reactive Non Reactive 05/25/2017 9:03 AM [facility] HBc Antibody IgM Non Reactive Non Reactive 05/25/2017 9:03 AM [facility] HCV Antibody Screen Non Reactive Non Reactive 05/25/2017 9:03 AM [facility] HCV S/C Ratio 0.11 0.00 - 0.79 05/25/2017 9:03 AM [facility] Comment: Klsblw-xp-sknktj ratio (S/CO) <0.80:?? Non Reactive Blood BLOOD SPECIMEN / Unknown Lab Venipuncture / Unknown 05/25/2017 7:07 AM SOLVENT PROCESS EXTRACTOR OPERATOR 05/25/2017 7:39 AM SOLVENT PROCESS EXTRACTOR OPERATOR Narrative [facility] - 05/25/2017 9:03 AM SOLVENT PROCESS EXTRACTOR OPERATOR Non Reactive - Antibodies to Hepatitis C virus (HCV) were not detected, result does not exclude early acute HCV infection. Biju Walker MD LAB - CHEMISTRY STEPHON AKINS [facility] Organization Address City/State/ZIP Co de Phone Number [facility] [address] [facility] [place] [address] * NEEDLE BIOPSY, LIVER (05/17/2017 6:33 AM SOLVENT PROCESS EXTRACTOR OPERATOR) Report Endoscopy POC _ Patient Name: Lili Aguila ? Date of : 2000 ? Admit Type: Outpatient Age: 17 ? Gender: Female Attending MD: Biju Walker MD ?Order #: [id number] _ Procedure: ? Liver biopsy Indications: ? Abnormal Liver enzymes (no detail) Providers: ? Biuj Walker MD Referring MD: ?Josiah Palacios Medicines: ? General anesthesia Complications: ? No immediate complications. Estimated blood loss: Minimal. _ Procedure: ? Informed consent was obtained. Aseptic technique was used. ? The point of maximal dullness was determined by ? percussion. 1% Lidocaine local anesthesia was injected. ? The depth of the liver was confirmed by spinal needle ? sounding. The liver biopsy was accomplished without ? difficulty. The patient tolerated the procedure fairly ? well. Findings: ? A 10 mm unfragmented core of tissue was obtained. The specimen was sent ? for histology. The [employer] gun was used with ultrasound to dionisio the ? site. Post biopsy ultrasound looked okay. Impression: ?- Tissue was submitted to pathology. Recommendation: ?Admit to floor ? Procedure Code(s): ? --- Professional --- ? 41248, Biopsy of liver, needle; percutaneous ? --- Technical --- ? 55984, Biopsy of liver, needle; percutaneous Diagnosis Code(s): ? --- Professional --- ? R74.9, Abnormal serum enzyme level, unspecified ? --- Technical --- ? R74.9, Abnormal serum enzyme level, unspecified CPT copyright 2015 [employer]. All rights reserved. The codes documented in this report are preliminary and upon microfilm duplicating unit supervisor review may be revised to meet current compliance requirements. Dr. Biju Walker Biju Walker MD 05/17/2017 11:04:12 AM This report has been signed electronically. Number of Addenda: 0 Note Initiated On: 05/17/2017 6:33 AM Procedure Date: ? 05/17/2017 6:33:19 AM ? This report has been signed electronically. [facility] 05/17/2017 6:33 AM SOLVENT PROCESS EXTRACTOR OPERATOR Biju Walker MD GI PROCEDURE ORDERAB LES Performing Organization Address City/[facility] Co de Phone Number [facility] [address] [place] [address] * HLA TYPING DR (03/29/2017 2:34 PM SOLVENT PROCESS EXTRACTOR OPERATOR) Pathologist [facility] HLA Typing DR See Scanned Report 04/07/2017 3:22 PM SOLVENT PROCESS EXTRACTOR OPERATOR [facility] Blood BLOOD SPECIMEN / Unknown Lab Venipuncture / Unknown 03/29/2017 2:34 PM SOLVENT PROCESS EXTRACTOR OPERATOR 03/29/2017 3:11 PM SOLVENT PROCESS EXTRACTOR OPERATOR Biju Walker MD LAB - BLOOD BANK ORD ERABLES Performing Organization Address City/[facility]/ZIP Co de Phone Number [facility] [address] [place] [address] * HLA TYPING A,B,C MULTIPLE ANTIGEN (03/29/2017 2:34 PM SOLVENT PROCESS EXTRACTOR OPERATOR) HLA ABC Typing SSR 04/09/2017 4:47 PM SOLVENT PROCESS EXTRACTOR OPERATOR [facility] Blood BLOOD SPECIMEN / Unknown Lab Venipuncture / Unknown 03/29/2017 2:34 PM SOLVENT PROCESS EXTRACTOR OPERATOR 03/29/2017 3:11 PM SOLVENT PROCESS EXTRACTOR OPERATOR Biju Walker MD LAB - BLOOD BANK ORD ERABLES Performing Organization Address [facility] Co de Phone Number [facility] [address] [place] [phone] * (ABNORMAL) BILIRUBIN TOTAL+DIRECT BLOOD PANEL (03/22/2017 9:42 AM SOLVENT PROCESS EXTRACTOR OPERATOR) Only the most recent of2 resultswithin the time period is included. Bilirubin Total 5.8(H) 0.3 - 1.2 mg/dL 03/22/2017 10:43 AM [facility] Bilirubin Direct 4.64(H) 0.11 - 0.64 mg/dL 03/22/2017 10:43 AM [facility] Bilirubin Indirect 1.2 mg/dL 03/22/2017 10:43 AM [facility] Blood BLOOD SPECIMEN / Unknown Lab Venipuncture / Unknown 03/22/2017 9:42 AM SOLVENT PROCESS EXTRACTOR OPERATOR 03/22/2017 9:46 AM SOLVENT PROCESS EXTRACTOR OPERATOR Vicente Owen DO LAB - CHEMISTRY ORDFelton AKINS Performing Organization Address [facility] Co de Phone Number [facility] [address] [place] [phone] * (ABNORMAL) URINALYSIS COMPLETE W MICROSCOPIC (03/21/2017 8:42 PM SOLVENT PROCESS EXTRACTOR OPERATOR) Color UA [place](A) Straw, Yellow 03/21/2017 9:10 PM [facility] Clarity UA Turbid(A) Clear 03/21/2017 9:10 PM [facility] Glucose UA Negative Negative 03/21/2017 9:10 PM [facility] Bilirubin UA 2+(A) Negative 03/21/2017 9:10 PM [facility] Ketone UA Trace(A) Negative 03/21/2017 9:10 PM [facility] Specific [place] UA 1.025 1.005 - 1.030 03/21/2017 9:10 PM [facility] Blood UA Negative Negative 03/21/2017 9:10 PM [facility] pH UA 6.5 5.0 - 8.0 pH 03/21/2017 9:10 PM [facility] Protein UA Trace(A) Negative 03/21/2017 9:10 PM [facility] Urobilinogen UA Negative Negative mg/dL 03/21/2017 9:10 PM [facility] Nitrite UA Negative Negative 03/21/2017 9:10 PM [facility] Leukocyte UA Trace(A) Negative 03/21/2017 9:10 PM [facility] RBC UA 0-5 0-5, None Seen # /hpf 03/21/2017 9:10 PM [facility] WBC UA 21-50(A) 0-5, None Seen # /hpf 03/21/2017 9:10 PM [facility] WBC Clumps UA Many(A) None Seen /HPF 03/21/2017 9:10 PM [facility] Bacteria UA Trace(A) None Seen 03/21/2017 9:10 PM [facility] Squamous Epithelial Cells 6-10(A) None Seen, 0-2, 3-5 /hpf 03/21/2017 9:10 PM [facility] Mucus UA 4+ /LPF 03/21/2017 9:10 PM [facility] Amorphous Crystals Occasional( A) None seen /hpf 03/21/2017 9:10 PM [facility] Calcium Oxalate Crystals Moderate(A) None seen /HPF 03/21/2017 9:10 PM [facility] Urine URINE SPECIMEN OBTAINED BY CLEAN CATCH PROCEDURE / Unknown Collection / Unknown 03/21/2017 8:42 PM SOLVENT PROCESS EXTRACTOR OPERATOR 03/21/2017 8:51 PM SOLVENT PROCESS EXTRACTOR OPERATOR Narrative [facility] - 03/21/2017 9:10 PM SOLVENT PROCESS EXTRACTOR OPERATOR ictotest positive Monika Barbosa MD LAB - URINAL YSIS ORDERABLES [facility] [address] [place] [phone] * LIPASE BLOOD (03/21/2017 2:41 PM SOLVENT PROCESS EXTRACTOR OPERATOR) Only the most recent of10 resultswithin the time period is included. Lipase 19 10 - 220 U/L 03/21/2017 3:15 PM SOLVENT PROCESS EXTRACTOR OPERATOR [facility] Blood BLOOD SPECIMEN / Unknown Venipuncture / Unknown 03/21/2017 2:41 PM SOLVENT PROCESS EXTRACTOR OPERATOR 03/21/2017 2:59 PM SOLVENT PROCESS EXTRACTOR OPERATOR Monika Barbosa MD LAB - CHEMIS TRY ORDERABLES Performing Organization Address [facility] Co de Phone Number [facility] [address] [place] [address] * AMMONIA (03/21/2017 2:41 PM SOLVENT PROCESS EXTRACTOR OPERATOR) Only the most recent of3 resultswithin the time period is included. Ammonia 29 18 - 72 umol/L 03/21/2017 3:03 PM SOLVENT PROCESS EXTRACTOR OPERATOR [facility] Blood BLOOD SPECIMEN / Unknown Venipuncture / Unknown 03/21/2017 2:41 PM SOLVENT PROCESS EXTRACTOR OPERATOR 03/21/2017 2:56 PM SOLVENT PROCESS EXTRACTOR OPERATOR Monika Barbosa MD LAB - CHEMIS TRY ORDERABLES Performing Organization Address [facility] de Phone Number [facility] [address] [place] [phone] * TACROLIMUS LEVEL GASTROENTEROLOGY (03/19/2017 8:31 AM SOLVENT PROCESS EXTRACTOR OPERATOR) Tacrolimus 4.8 2.0 - 15.0 ng/mL 03/19/2017 11:04 AM SOLVENT PROCESS EXTRACTOR OPERATOR [facility] Blood BLOOD SPECIMEN / Unknown Lab Venipuncture / Unknown 03/19/2017 8:31 AM SOLVENT PROCESS EXTRACTOR OPERATOR 03/19/2017 8:36 AM SOLVENT PROCESS EXTRACTOR OPERATOR Jose Castillo DO LAB - THERAPEUTIC DR MARTINEZ MONITORING ORDERABLES Performing Organization Address [facility] Co de Phone Number [facility] [address] [place] [phone] * NEEDLE BIOPSY, LIVER (03/16/2017 11:26 AM SOLVENT PROCESS EXTRACTOR OPERATOR) Report Endoscopy POC _ Patient Name: Lili Aguila ? Date of : 2000 ? Admit Type: Inpatient Age: 17 ? Gender: Female Attending MD: Biju Walker MD ?Order #: [id number] _ Procedure: ? Liver biopsy Indications: ? Abnormal Liver enzymes (no detail) Providers: ? Biju Walker MD Referring MD: ?Josiah Palacios MD Medicines: ? General anesthesia Complications: ? No immediate complications. Estimated blood loss: Minimal. _ Procedure: ? Informed consent was obtained. Aseptic technique was used. ? The point of maximal dullness was determined by ? percussion. 1% Lidocaine local anesthesia was injected. ? The depth of the liver was confirmed by spinal needle ? sounding.The liver biopsy was accomplished without ? difficulty. The patient tolerated the procedure fairly ? well. Findings: ? A 10 mm unfragmented core of tissue was obtained. The specimen was ? prepared with formalin and sent for histology. One pass was made with ? the [employer] gun using ultrasound to dionisio the site. Post biopsy ? ultrasound looked okay. Impression: ?- Tissue was submitted to pathology. Recommendation: ?Admit to floor. ? Procedure Code(s): ? --- Professional --- ? 93315, Biopsy of liver, needle; percutaneous ? 64670, Ultrasonic guidance for needle placement (eg, biopsy, aspiration, ? injection, localization device), imaging supervision and interpretation ? --- Technical --- ? 40462, Biopsy of liver, needle; percutaneous ? 67477, Ultrasonic guidance for needle placement (eg, biopsy, aspiration, ? injection, localization device), imaging supervision and interpretation Diagnosis Code(s): ? --- Professional --- ? R74.9, Abnormal serum enzyme level, unspecified ? --- Technical --- ? R74.9, Abnormal serum enzyme level, unspecified CPT copyright 2015 [employer]. All rights reserved. The codes documented in this report are preliminary and upon microfilm duplicating unit supervisor review may be revised to meet current compliance requirements. Dr. Biju Walker Biju Walker MD 03/16/2017 12:02:42 PM This report has been signed electronically. Number of Addenda: 0 Note Initiated On: 03/16/2017 11:26 AM Procedure Date: ? 03/16/2017 11:26:11 AM ? This report has been signed electronically. [facility] 03/16/2017 11:2 6 AM SOLVENT PROCESS EXTRACTOR OPERATOR Biju Walker MD GI PROCEDURE ORDERAB LES [facility] [address] [place] [address] * MRI ABDOMEN W MRCP W WO CONT (03/15/2017 4:05 PM SOLVENT PROCESS EXTRACTOR OPERATOR) Anatomical Region Laterality Modality Magnetic Resonan ce 03/16/2017 8:15 AM SOLVENT PROCESS EXTRACTOR OPERATOR Impressions 03/16/2017 12:25 PM SOLVENT PROCESS EXTRACTOR OPERATOR narrowing of the right biliary duct immediately proximal to junction that forms the common bile duct with minimal prominence to the biliary tree proximal to stricture. Splenomegaly I, Kwadwo Zapata, have personally reviewed the images and I agree with this report. 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 TECHNIQUE: Magnetic resonance imaging of the abdomen was performed prior to and following the uneventful administration of intravenous Gadolinium contrast. Protocol: Routine Abdomen Contrast: 14.6 cc Dotarem COMPARISON: Comparison is made to a study from December 30, 2011 FINDINGS: The liver is normal in size and signal intensity. This does not appear enlarged. 3 mg draining into the inferior vena cava, normal in size. No abnormality of the hepatic arteries and tributaries are seen. The portal vein is prominent consistent with transplant liver and stable in appearance when compared to the ultrasound examination done on March 08. The common bile duct has normal caliber and ??is without narrowing. The right biliary duct demonstrates distal narrowing just proximal to formation of the common bile duct. No narrowing is identified within the left biliary system. There is minimal prominence of the biliary system proximal to the area of 50% narrowing. Lung bases appear clear. The visible heart size is normal. The kidneys, pancreas and adrenal glands are normal in signal intensity. There is mild splenomegaly without any focal parenchymal abnormality. There is no evidence of small and large bowel dilatation or obstruction. There is no ascites or intra-abdominal free fluid collection. The inferior vena cava is unremarkable. 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 TECHNIQUE: Magnetic resonance imaging of the abdomen was performed prior to and following the uneventful administration of intravenous Gadolinium contrast. Protocol: Routine Abdomen Contrast: 14.6 cc Dotarem COMPARISON: Comparison is made to a study from December 30, 2011 FINDINGS: The liver is normal in size and signal intensity. This does not appear enlarged. 3 mg draining into the inferior vena cava, normal in size. No abnormality of the hepatic arteries and tributaries are seen. The portal vein is prominent consistent with transplant liver and stable in appearance when compared to the ultrasound examination done on March 08. The common bile duct has normal caliber and is without narrowing. The right biliary duct demonstrates distal narrowing just proximal to formation of the common bile duct. No narrowing is identified within the left biliary system. There is minimal prominence of the biliary system proximal to the area of 50% narrowing. Lung bases appear clear. The visible heart size is normal. The kidneys, pancreas and adrenal glands are normal in signal intensity. There is mild splenomegaly without any focal parenchymal abnormality. There is no evidence of small and large bowel dilatation or obstruction. There is no ascites or intra-abdominal free fluid collection. The inferior vena cava is unremarkable. IMPRESSION narrowing of the right biliary duct immediately proximal to junction that forms the common bile duct with minimal prominence to the biliary tree proximal to stricture. Splenomegaly I, Kwadwo Zapata, have personally reviewed the images and I agree with this report. Jose Castillo DO MR ORDERABLES * CYTOMEGALOVIRUS QUAL PCR (03/08/2017 6:07 PM SOLVENT PROCESS EXTRACTOR OPERATOR) Only the most recent of5 resultswithin the time period is included. [facility] Cytomegalovirus Detection PCR Negative Negative 03/13/2017 11:06 PM SOLVENT PROCESS EXTRACTOR OPERATOR [facility] ([facility]) Comment: No Cytomegalovirus DNA Detected. This test was developed and its performance characteristics determined by [facility]. ??It has not been cleared or approved by the Food and Drug Administration. ??The FDA has determined that such clearance or approval is not necessary. Blood BLOOD SPECIMEN / Unknown Lab Venipuncture / Unknown 03/08/2017 6:07 PM SOLVENT PROCESS EXTRACTOR OPERATOR 03/08/2017 6:11 PM SOLVENT PROCESS EXTRACTOR OPERATOR Narrative [facility] ([facility]) - 03/13/2017 11:06 PM SOLVENT PROCESS EXTRACTOR OPERATOR Performed at: ??01 - [address] ??[id number] Air Brakes Inspector: Hair Bryant MD, Phone: ??[phone] Vicente D Law DO LAB - BODY FLUID ORD ERABLES [facility] ([facility]) [address] [place] [address] * MRI BRAIN WITH AND WITHOUT CONTRAST (03/08/2017 5:50 PM SOLVENT PROCESS EXTRACTOR OPERATOR) Only the most recent of2 resultswithin the time period is included. Anatomical Region Laterality Modality Head Magnetic Resonan ce 03/09/2017 6:38 AM SOLVENT PROCESS EXTRACTOR OPERATOR Impressions 03/09/2017 6:52 AM SOLVENT PROCESS EXTRACTOR OPERATOR 1. Normal brain MRI. 2. Normal MRV of the head. Specifically, no evidence of venous sinus thrombosis. Narrative 03/09/2017 6:52 AM SOLVENT PROCESS EXTRACTOR OPERATOR EXAMINATION: 1. Magnetic resonance imaging (MRI) of the brain without and with contrast 2. 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 TECHNIQUE: MRI of the brain was performed prior to and following the uneventful administration of Gadavist 8.3 mL intravenous gadolinium contrast according to standard protocol. MRV of the head was performed prior to administration of contrast using an ENHANCE protocol. MRV of the head were then performed after the administration of contrast using a TRICKS protocol. Comparison is made to prior brain MR from 05/14/2015. Brain: No evidence of acute or chronic hemorrhage and no evidence of acute cerebral infarction is seen. Ventricles are of normal size, shape, and morphology. No mass effect or midline shift. No enhancing lesions are identified. The corpus callosum and sella appear normal. The posterior fossa, brainstem, and craniocervical junction appear normal. The visualized portions of the orbits, mastoids and paranasal sinuses appear normal. Normal flow voids are demonstrated in the carotid arteries and basilar artery. The calvarium and visualized cervical spine appear normal. Venographic findings: The superior sagittal sinus, straight sinus, transverse sinuses, sigmoid sinuses, and visualized portions of the internal jugular veins are patent. No evidence of venous sinus thrombosis. Procedure Note Jorge Franks MD - 03/09/2017 EXAMINATION: 1. Magnetic resonance imaging (MRI) of the brain without and with contrast 2. 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 TECHNIQUE: MRI of the brain was performed prior to and following the uneventful administration of Gadavist 8.3 mL intravenous gadolinium contrast according to standard protocol. MRV of the head was performed prior to administration of contrast using an ENHANCE protocol. MRV of the head were then performed after the administration of contrast using a TRICKS protocol. Comparison is made to prior brain MR from 05/14/2015. Brain: No evidence of acute or chronic hemorrhage and no evidence of acute cerebral infarction is seen. Ventricles are of normal size, shape, and morphology. No mass effect or midline shift. No enhancing lesions are identified. The corpus callosum and sella appear normal. The posterior fossa, brainstem, and craniocervical junction appear normal. The visualized portions of the orbits, mastoids and paranasal sinuses appear normal. Normal flow voids are demonstrated in the carotid arteries and basilar artery. The calvarium and visualized cervical spine appear normal. Venographic findings: The superior sagittal sinus, straight sinus, transverse sinuses, sigmoid sinuses, and visualized portions of the internal jugular veins are patent. No evidence of venous sinus thrombosis. IMPRESSION 1. Normal brain MRI. 2. Normal MRV of the head. Specifically, no evidence of venous sinus thrombosis. Juma Wolff MD MR ORDERABLES * MRA ANGIO HEAD WITH AND WITHOUT CONTRAST (03/08/2017 5:50 PM SOLVENT PROCESS EXTRACTOR OPERATOR) Anatomical Region Laterality Modality Head Magnetic Resonan ce 03/09/2017 6:38 AM SOLVENT PROCESS EXTRACTOR OPERATOR Impressions 03/09/2017 6:52 AM SOLVENT PROCESS EXTRACTOR OPERATOR 1. Normal brain MRI. 2. Normal MRV of the head. Specifically, no evidence of venous sinus thrombosis. Narrative 03/09/2017 6:52 AM SOLVENT PROCESS EXTRACTOR OPERATOR EXAMINATION: 1. Magnetic resonance imaging (MRI) of the brain without and with contrast 2. 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 TECHNIQUE: MRI of the brain was performed prior to and following the uneventful administration of Gadavist 8.3 mL intravenous gadolinium contrast according to standard protocol. MRV of the head was performed prior to administration of contrast using an ENHANCE protocol. MRV of the head were then performed after the administration of contrast using a TRICKS protocol. Comparison is made to prior brain MR from 05/14/2015. Brain: No evidence of acute or chronic hemorrhage and no evidence of acute cerebral infarction is seen. Ventricles are of normal size, shape, and morphology. No mass effect or midline shift. No enhancing lesions are identified. The corpus callosum and sella appear normal. The posterior fossa, brainstem, and craniocervical junction appear normal. The visualized portions of the orbits, mastoids and paranasal sinuses appear normal. Normal flow voids are demonstrated in the carotid arteries and basilar artery. The calvarium and visualized cervical spine appear normal. Venographic findings: The superior sagittal sinus, straight sinus, transverse sinuses, sigmoid sinuses, and visualized portions of the internal jugular veins are patent. No evidence of venous sinus thrombosis. Procedure Note Jorge Franks MD - 03/09/2017 EXAMINATION: 1. Magnetic resonance imaging (MRI) of the brain without and with contrast 2. 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 TECHNIQUE: MRI of the brain was performed prior to and following the uneventful administration of Gadavist 8.3 mL intravenous gadolinium contrast according to standard protocol. MRV of the head was performed prior to administration of contrast using an ENHANCE protocol. MRV of the head were then performed after the administration of contrast using a TRICKS protocol. Comparison is made to prior brain MR from 05/14/2015. Brain: No evidence of acute or chronic hemorrhage and no evidence of acute cerebral infarction is seen. Ventricles are of normal size, shape, and morphology. No mass effect or midline shift. No enhancing lesions are identified. The corpus callosum and sella appear normal. The posterior fossa, brainstem, and craniocervical junction appear normal. The visualized portions of the orbits, mastoids and paranasal sinuses appear normal. Normal flow voids are demonstrated in the carotid arteries and basilar artery. The calvarium and visualized cervical spine appear normal. Venographic findings: The superior sagittal sinus, straight sinus, transverse sinuses, sigmoid sinuses, and visualized portions of the internal jugular veins are patent. No evidence of venous sinus thrombosis. IMPRESSION 1. Normal brain MRI. 2. Normal MRV of the head. Specifically, no evidence of venous sinus thrombosis. Juma Wolff MD MR ORDERABLES * (ABNORMAL) BETTINA-MEDRANO VIRUS PANEL (03/08/2017 6:21 AM SOLVENT PROCESS EXTRACTOR OPERATOR) Only the most recent of3 resultswithin the time period is included. Bettina-Medrano Viral Capsid Antigen Antibody IgM <36.0 0.0 - 35.9 U/mL 03/09/2017 2:13 PM SOLVENT PROCESS EXTRACTOR OPERATOR [facility] ([facility]) Comment: ? Negative ?<36.0 ? Equivocal 36.0 - 43.9 ? Positive ?>43.9 Bettina-Medrano Virus Early Antigen Antibody IgG <9.0 0.0 - 8.9 U/mL 03/09/2017 2:13 PM SOLVENT PROCESS EXTRACTOR OPERATOR [facility] ([facility]) Comment: ? Negative ?< 9.0 ? Equivocal ??9.0 - 10.9 ? Positive ?>10.9 Bettina-Medrano Viral Capsid Antigen Antibody IgG 385.0(H) 0.0 - 17.9 U/mL 03/09/2017 2:13 PM SOLVENT PROCESS EXTRACTOR OPERATOR [facility] ([facility]) Comment: ? Negative ?<18.0 ? Equivocal 18.0 - 21.9 ? Positive ?>21.9 Bettina-Medrano Virus Antibody IgG Nuclear Antigen 335.0(H) 0.0 - 17.9 U/mL 03/09/2017 2:13 PM SOLVENT PROCESS EXTRACTOR OPERATOR [facility] ([facility]) Comment: ? Negative ?<18.0 ? Equivocal 18.0 - 21.9 ? Positive ?>21.9 Interpretation Comment 03/09/2017 2:13 PM SOLVENT PROCESS EXTRACTOR OPERATOR [facility] ([facility]) Comment: ? EBV Interpretation Chart Interpretation ?? EBV-IgM ??EA(D)-IgG ??VCA-IgG ??EBNA-IgG EBV Seronegative ?- ?- ? - ?- Early Phase ? + ?- ? - ?- Acute Primary ? + ? +or- ? + ?- Infection Convalescence/Past ??- ? +or- ? + ?+ Infection Reactivated ?+or- ?+ ? + ?+ Infection ? + Antibody Present ?- Antibody Absent Blood BLOOD SPECIMEN / Unknown Lab Venipuncture / Unknown 03/08/2017 6:21 AM SOLVENT PROCESS EXTRACTOR OPERATOR 03/08/2017 6:26 AM SOLVENT PROCESS EXTRACTOR OPERATOR Narrative [facility] ([facility]) - 03/09/2017 2:13 PM SOLVENT PROCESS EXTRACTOR OPERATOR Performed at: ??01 - [facility] [address] [place], [place] ??[id number] Air Brakes Inspector: Hang Zurita PhD, Phone: ??[phone] Mariama Noble DO LAB - CHEMISTRY ORD ERABLES Performing Organization Address City/State/[facility] Co de Phone Number [facility] ([facility]) [address] [place] [address] * IRON + TRANSFERRIN + TIBC PANEL (06/26/2016 8:01 AM SOLVENT PROCESS EXTRACTOR OPERATOR) Only the most recent of2 resultswithin the time period is included. Iron 118 25 - 156 ug/dL 06/26/2016 9:55 AM [facility] Transferrin 270 180 - 382 mg/dL 06/26/2016 9:55 AM [facility] TIBC Calculated 338 250 - 400 mg/dL 06/26/2016 9:55 AM [facility] Iron Saturation % 35 20 - 50 % 06/26/2016 9:55 AM [facility] Blood BLOOD SPECIMEN / Unknown Lab Venipuncture / Unknown 06/26/2016 8:01 AM SOLVENT PROCESS EXTRACTOR OPERATOR 06/26/2016 8:41 AM SOLVENT PROCESS EXTRACTOR OPERATOR Biju Walker MD LAB - CHEMISTRY STEPHON AKINS [facility] [place] [address] * XR FOOT 3+ VW LEFT (07/21/2015 8:13 PM CDT) Anatomical Region Laterality Modality Ankle / Foot Radiographic Joanne ging 07/22/2015 7:57 AM CDT Impressions 07/22/2015 7:58 AM CDT No radiopaque foreign bodies are seen. Narrative 07/22/2015 7:58 AM CDT 3 views of the left foot performed July 21, 2015. History: Foot laceration. History of liver transplant. AP, lateral, and oblique views of the left foot were obtained. There is no evidence of fracture or subluxation. No radiopaque foreign bodies are seen in the visualized soft tissues of the foot. Procedure Note Lynsey Sherwood MD - 07/22/2015 3 views of the left foot performed July 21, 2015. History: Foot laceration. History of liver transplant. AP, lateral, and oblique views of the left foot were obtained. There is no evidence of fracture or subluxation. No radiopaque foreign bodies are seen in the visualized soft tissues of the foot. IMPRESSION No radiopaque foreign bodies are seen. Vannesa Ragsdale MD DIAGNOSTIC IMAGING O RDERABLES * XR ANKLE 3+ VW LEFT (07/21/2015 8:13 PM CDT) Anatomical Region Laterality Modality Lower Extremity Radiographic Joanne ging 07/22/2015 7:58 AM CDT Impressions 07/22/2015 7:58 AM CDT No radiopaque foreign bodies are seen. Narrative 07/22/2015 7:58 AM CDT 3 views of the left ankle performed July 21, 2015. History: Liver transplant. Laceration. AP, lateral, and oblique views of the left ankle were obtained. A bandage appears to be present along the lateral aspect of the ankle and hindfoot. This somewhat obscures underlying structures. There is no evidence of fracture or subluxation. No radiopaque foreign bodies are seen. Procedure Note Lynsey Sherwood MD - 07/22/2015 3 views of the left ankle performed July 21, 2015. History: Liver transplant. Laceration. AP, lateral, and oblique views of the left ankle were obtained. A bandage appears to be present along the lateral aspect of the ankle and hindfoot. This somewhat obscures underlying structures. There is no evidence of fracture or subluxation. No radiopaque foreign bodies are seen. IMPRESSION No radiopaque foreign bodies are seen. Vannesa Ragsdale MD DIAGNOSTIC IMAGING O RAPHAEL * BETTINA-MEDRANO VIRUS PCR QUALITATIVE (06/14/2015 7:16 AM SOLVENT PROCESS EXTRACTOR OPERATOR) Bettina-Medrano Virus Real Time Negative Negative 06/20/2015 12:15 PM SOLVENT PROCESS EXTRACTOR OPERATOR [facility] ([facility]) Comment: This test was developed and its performance characteristics determined by [employer]. It has not been cleared or approved by the U.S. Food and Drug Administration. The FDA has determined that such clearance or approval is not necessary. This test is used for clinical purposes. It should not be regarded as investigational or research. Blood specimen (specimen) BLOOD SPECIMEN / Unknown Lab Venipuncture / Unknown 06/14/2015 7:16 AM SOLVENT PROCESS EXTRACTOR OPERATOR 06/14/2015 7:36 AM SOLVENT PROCESS EXTRACTOR OPERATOR Narrative [facility] ([facility]) - 06/20/2015 12:15 PM SOLVENT PROCESS EXTRACTOR OPERATOR Performed at: ??01 - [address] ??[id number] Air Brakes Inspector: Hair Bryant MD, Phone: ??[phone] Biju Walker MD LAB - MICROBIOLOGY [facility]) * PEDIATRIC DIAGNOSTIC POLYSOMNOGRAM (05/25/2015) Linked Results See Linked Results [facility] 05/25/2015 Kelly Sotomayor APRN-SUPPLY CHAIN SPECIALIST [facility] O RDERABLES [facility] * GLUCOSE (11/23/2014 8:45 AM CDT) Only the most recent of44 resultswithin the time period is included. Glucose 93 70 - 105 mg/dL 11/23/2014 9:32 AM CDT [facility] Blood BLOOD SPECIMEN / Unknown Lab Venipuncture / Unknown 11/23/2014 8:45 AM CDT 11/23/2014 9:00 AM CDT Beth Garcia MD LAB - CHEMISTRY STEPHON AKINS Performing Organization Address [facility] Co de Phone Number [facility] [address] [place] [address] * (ABNORMAL) LYTES (NA K CL CO2) BLOOD (11/23/2014 8:45 AM CDT) Only the most recent of46 resultswithin the time period is included. Sodium 139 136 - 145 mmol/L 11/23/2014 9:32 AM CDT [facility] Potassium 4.3 3.5 - 5.1 mmol/L 11/23/2014 9:32 AM CDT [facility] Chloride 109(H) 98 - 107 mmol/L 11/23/2014 9:32 AM CDT [facility] CO2 22 20 - 28 mmol/L 11/23/2014 9:32 AM T [facility] Anion Gap 8 5 - 20 mmol/L 11/23/2014 9:32 AM CDT [facility] Blood BLOOD SPECIMEN / Unknown Lab Venipuncture / Unknown 11/23/2014 8:45 AM CDT 11/23/2014 9:00 AM CDT Beth Garcia MD LAB - CHEMISTRY STEPHON AKINS Performing Organization Address City/[facility]/ZIP Co de Phone Number [facility] [address] [place] [address] * (ABNORMAL) CREATININE BLOOD (11/23/2014 8:45 AM CDT) Only the most recent of46 resultswithin the time period is included. Creatinine 0.53(L) 0.61 - 1.07 mg/dL 11/23/2014 9:32 AM CDT [facility] eGFR by MDRD mL/min/1. 73m2 11/23/2014 9:32 AM T [facility] Comment: eGFR calculations are not performed for children under 18 years old. eGFR by MDRD mL/min/1. 73m2 11/23/2014 9:32 AM T [facility] Comment: eGFR calculations are not performed for children under 18 years old. Blood BLOOD SPECIMEN / Unknown Lab Venipuncture / Unknown 11/23/2014 8:45 AM CDT 11/23/2014 9:00 AM CDT Beth Garcia MD LAB - CHEMISTRY STEPHON AKINS Performing Organization Address City/[facility]/ZIP Co de Phone Number [facility] [address] [place] [address] * BUN (11/23/2014 8:45 AM CDT) Only the most recent of44 resultswithin the time period is included. BUN 10.3 5.3 - 18.7 mg/dL 11/23/2014 9:32 AM CDT [facility] Blood BLOOD SPECIMEN / Unknown Lab Venipuncture / Unknown 11/23/2014 8:45 AM CDT 11/23/2014 9:00 AM CDT Beth Garcia MD LAB - CHEMISTRY ORDFelton AKINS Performing Organization Address [facility]/ZIP Co de Phone Number [facility] [address] [place] [address] * US ABD COM W/DUP PORT VEIN LIVER (05/04/2014 1:42 PM SOLVENT PROCESS EXTRACTOR OPERATOR) Anatomical Region Laterality Modality Ultrasound 05/04/2014 1:55 PM SOLVENT PROCESS EXTRACTOR OPERATOR Impressions 05/04/2014 2:11 PM SOLVENT PROCESS EXTRACTOR OPERATOR 1. Postoperative changes of liver transplantation with embolization coil within the right hepatic lobe. 2. Splenomegaly with spleen measuring 15.0 cm in length, previously 14.6 cm. 3. Patent transplant liver vasculature. Narrative 05/04/2014 2:11 PM SOLVENT PROCESS EXTRACTOR OPERATOR EXAMINATION: ??ABDOMINAL ULTRASOUND WITH LIVER DOPPLER HISTORY: ??14-year-old status post liver transplantation for fibrolamellar hepatocellular carcinoma presenting with left upper abdominal pain. COMPARISON: Ultrasound dated 12/15/2013. FINDINGS: ??Multiple, real-time images of the abdomen are obtained. Ultrasound examination shows a right upper quadrant whole transplant liver with homogeneous echogenicity without focal mass. Multiple 3 cm hyperechoic structure with posterior acoustic shadowing is again noted within the right hepatic lobe, corresponding to embolization coils. There is no biliary ductal dilatation. There are no perihepatic fluid collections. The spleen is enlarged, measuring 15.0 cm in length, previously 14.6 cm. The right kidney measures 12.1 x 3.5 x 5.3 cm, and left kidney measures 12.0 x 4.0 x 5.0 cm. ??The renal sizes are within normal limits for the patient's age (mean renal length for 15-16 years of age is 10.93 cm with 1 standard deviation of 0.76 cm). Renal cortical echogenicity and corticomedullary differentiation are normal. ??No hydronephrosis, masses, or stones are seen. ??The imaged portions of the pancreas are normal. No ascites is present. ??The urinary bladder is decompressed with a volume of 11 mL. There is no distal ureteral dilatation. The imaged portions of the inferior vena cava and abdominal aorta are normal. Color Doppler and spectral analysis of the transplant liver vasculature demonstrates a patent main portal vein with appropriate directional flow. The extrahepatic artery is patent with a resistive index of 0.65. And peak systolic velocity of 40 cm/s, previously 45 cm/s. The right, middle, and left hepatic veins are patent with appropriate directional flow. The splenic artery and vein are patent. Procedure Note Teresita Chew MD - 05/04/2014 EXAMINATION: ABDOMINAL ULTRASOUND WITH LIVER DOPPLER HISTORY: 14-year-old status post liver transplantation for fibrolamellar hepatocellular carcinoma presenting with left upper abdominal pain. COMPARISON: Ultrasound dated 12/15/2013. FINDINGS: Multiple, real-time images of the abdomen are obtained. Ultrasound examination shows a right upper quadrant whole transplant liver with homogeneous echogenicity without focal mass. Multiple 3 cm hyperechoic structure with posterior acoustic shadowing is again noted within the right hepatic lobe, corresponding to embolization coils. There is no biliary ductal dilatation. There are no perihepatic fluid collections. The spleen is enlarged, measuring 15.0 cm in length, previously 14.6 cm. The right kidney measures 12.1 x 3.5 x 5.3 cm, and left kidney measures 12.0 x 4.0 x 5.0 cm. The renal sizes are within normal limits for the patient's age (mean renal length for 15-16 years of age is 10.93 cm with 1 standard deviation of 0.76 cm). Renal cortical echogenicity and corticomedullary differentiation are normal. No hydronephrosis, masses, or stones are seen. The imaged portions of the pancreas are normal. No ascites is present. The urinary bladder is decompressed with a volume of 11 mL. There is no distal ureteral dilatation. The imaged portions of the inferior vena cava and abdominal aorta are normal. Color Doppler and spectral analysis of the transplant liver vasculature demonstrates a patent main portal vein with appropriate directional flow. The extrahepatic artery is patent with a resistive index of 0.65. And peak systolic velocity of 40 cm/s, previously 45 cm/s. The right, middle, and left hepatic veins are patent with appropriate directional flow. The splenic artery and vein are patent. IMPRESSION 1. Postoperative changes of liver transplantation with embolization coil within the right hepatic lobe. 2. Splenomegaly with spleen measuring 15.0 cm in length, previously 14.6 cm. 3. Patent transplant liver vasculature. Biju Walker MD US ORDERABLES * HELICOBACTER PYLORI UREASE (STL) (03/07/2014 12:48 PM SOLVENT PROCESS EXTRACTOR OPERATOR) Helicobacter pylori Urease Initial Negative Negative 03/08/2014 3:35 PM SOLVENT PROCESS EXTRACTOR OPERATOR [facility] Helicobacter pylori Urease Final Negative Negative 03/08/2014 3:35 PM SOLVENT PROCESS EXTRACTOR OPERATOR [facility] Microbiology GASTRIC BIOPSY SPECIMEN / Unknown 03/07/2014 12:48 PM SOLVENT PROCESS EXTRACTOR OPERATOR 03/07/2014 1:01 PM SOLVENT PROCESS EXTRACTOR OPERATOR Biju Walker MD LAB - MICROBIOLOGY O RDERABLES [facility] [address] [place] [address] * EGD (03/07/2014 11:25 AM SOLVENT PROCESS EXTRACTOR OPERATOR) Report Endoscopy POC _ Patient Name: Lili Aguila ?Gender: Female ?Date of : 2000 Age: 13 ? Admit Type: Outpatient Attending MD: iBju Walker MD ? Order #: [id number] _ Procedure: ? Upper GI endoscopy Indications: ? Abdominal pain Providers: ? Biju Walker MD Referring MD: ?Josiah Palacios Medicines: ? General Anesthesia Complications: ? No immediate complications. Estimated blood loss: Minimal. _ Procedure: ? After obtaining informed consent, the endoscope was passed ? under direct vision. Throughout the procedure, the ? patient's blood pressure, pulse, and oxygen saturations ? were monitored continuously. The Endoscope was introduced ? through the mouth, and advanced to the second part of ? duodenum. The upper GI endoscopy was accomplished without ? difficulty. The patient tolerated the procedure well. Findings: ? Diffuse mild erythema was found in the lower third of the esophagus. ? Biopsies were taken with a cold forceps for histology. ? Diffuse mildly erythematous mucosa without bleeding was found in the ? gastric antrum. Biopsies were taken with a cold forceps for histology. ? Biopsies were taken with a cold forceps for Helicobacter pylori testing ? using a rapid urease test. ? The examined duodenum was normal. Biopsies were taken with a cold ? forceps for histology. Impression: ?- Erythema in the lower third of the esophagus. Biopsied. ? - Erythematous mucosa in the antrum. Biopsied. ? - Normal examined duodenum. Biopsied. Recommendation: ?- Please call GI office in 2 weeks for the results. ? Keep scheduled appointments. Please keep us informed of ? patient progress. ? Do not hesitate to call GI for any questions / concerns. ? Procedure Code(s): ? --- Professional --- ? 32409, Esophagogastrodu odenoscopy, flexible, transoral; with biopsy, ? single or multiple ? --- Technical --- ? 99109, Esophagogastrodu odenoscopy, flexible, transoral; with biopsy, ? single or multiple Diagnosis Code(s): ? --- Professional --- ? 530.9, Unspecified disorder of esophagus ? 537.9, Unspecified disorder of stomach and duodenum ? 789.00, Abdominal pain, unspecified site ? --- Technical --- ? 530.9, Unspecified disorder of esophagus ? 537.9, Unspecified disorder of stomach and duodenum ? 789.00, Abdominal pain, unspecified site CPT copyright 2013 [employer]. All rights reserved. The codes documented in this report are preliminary and upon microfilm duplicating unit supervisor review may be revised to meet current compliance requirements. Dr. Biju Walker Biju Walker MD 03/07/2014 12:50 PM This report has been signed electronically. Number of Addenda: 0 Note Initiated On: 03/05/2014 11:25 AM Procedure Date: ? 03/07/2014 11:25:00 AM ? This report has been signed electronically. [facility] 03/07/2014 11:2 5 AM SOLVENT PROCESS EXTRACTOR OPERATOR Biju Walker MD GI PROCEDURE ORDERAB LES [facility] [address] [facility] [place] [address] * XR ABD OBSTR SERIES (11/07/2013 11:12 AM CDT) Only the most recent of2 resultswithin the time period is included. Anatomical Region Laterality Modality Abdomen Radiographic Joanne ging 11/07/2013 11:1 3 AM CDT Impressions 11/07/2013 11:16 AM CDT Nonobstructive bowel gas pattern. Retained stool. Narrative 11/07/2013 11:16 AM CDT Exam: Abdomen obstruction series History: 13-year-old female with history of liver transplantation in August 2013 status post recent embolization of an intrahepatic arterioportal shunt now with worsening abdominal pain Comparison: 01/03/2012 Findings: Surgical clips and embolization coils are seen in the upper right abdomen. The lung bases are clear. No free intraperitoneal air is seen. Retained stool is present throughout the colon. There is no evidence of obstruction. No air-fluid levels or pneumatosis is seen. There are no abnormal calcifications. The osseous structures are normal. Both hips are seated. Procedure Note Leticia Sheppard MD - 11/07/2013 Exam: Abdomen obstruction series History: 13-year-old female with history of liver transplantation in August 2013 status post recent embolization of an intrahepatic arterioportal shunt now with worsening abdominal pain Comparison: 01/03/2012 Findings: Surgical clips and embolization coils are seen in the upper right abdomen. The lung bases are clear. No free intraperitoneal air is seen. Retained stool is present throughout the colon. There is no evidence of obstruction. No air-fluid levels or pneumatosis is seen. There are no abnormal calcifications. The osseous structures are normal. Both hips are seated. IMPRESSION Nonobstructive bowel gas pattern. Retained stool. Suzan Camejo DO DIAGNOSTIC IMAGING ORDERABLES * (ABNORMAL) URINALYSIS ROUTINE AUTO (11/07/2013 10:28 AM CDT) Only the most recent of5 resultswithin the time period is included. Color UA Yellow Straw, Yellow, Dark Yellow 11/07/2013 10:43 AM CDT [facility] Clarity UA Slt Cloudy 11/07/2013 10:43 AM CDT [facility] Specific [place] UA >=1.030 1.005 - 1.030 11/07/2013 10:43 AM [facility] pH UA 6.0 5.0 - 8.0 pH 11/07/2013 10:43 AM T [facility] Protein UA Negative Negative 11/07/2013 10:43 AM T [facility] Blood UA 2+(A) Negative 11/07/2013 10:43 AM T [facility] Leukocyte UA Negative Negative 11/07/2013 10:43 AM T [facility] Nitrite UA Negative Negative 11/07/2013 10:43 AM T [facility] Glucose UA Negative Negative 11/07/2013 10:43 AM T [facility] Ketone UA Negative Negative 11/07/2013 10:43 AM [facility] Bilirubin UA Negative Negative 11/07/2013 10:43 AM [facility] Urobilinogen UA 0.2 0.1 - 1.0 EU/dL 11/07/2013 10:43 AM [facility] Urine URINE SPECIMEN OBTAINED BY CLEAN CATCH PROCEDURE / Unknown 11/07/2013 10:28 AM T 11/07/2013 10:34 AM T Suzan Camejo DO LAB - URINALYSIS O RDERABLES Performing Organization Address City/State/[facility] Co de Phone Number [facility] [place] [address] * (ABNORMAL) URINALYSIS MICROSCOPIC ONLY (11/07/2013 10:28 AM CDT) Only the most recent of4 resultswithin the time period is included. RBC UA 0-2, 2-5 # /hpf 11/07/2013 10:57 AM [facility] WBC UA 0-2 0-2, 2-5 # /hpf 11/07/2013 10:57 AM [facility] Bacteria UA 2+(A) None Seen, Trace 11/07/2013 10:57 AM [facility] Epithelial Cell UA 2-5 0-2, 2-5 11/07/2013 10:57 AM [facility] Mucus UA 2+ 11/07/2013 10:57 AM [facility] Urine URINE SPECIMEN OBTAINED BY CLEAN CATCH PROCEDURE / Unknown 11/07/2013 10:28 AM CDT 11/07/2013 10:34 AM CDT Suzan Rhina Camejo DO LAB - URINALYSIS O RDERABLES [facility] [address] * CHLAMYDIA + GC AMPLIFIED PROBE (11/07/2013 10:28 AM CDT) Chlamydia Amplified Probe Negative Negative 11/08/2013 12:49 PM CDT [facility] GC Amplified Probe Negative Negative 11/08/2013 12:49 PM CDT [facility] Urine URINE / Unknown 11/07/2013 1 0:28 AM CDT 11/07/2013 10:36 AM CDT Narrative [facility] - 11/08/2013 12:49 PM CDT This test was developed and its performance characteristics determined by the [facility], [facility]. Female urine specimens tested by the [facility] [place] have not been cleared or approved by the FDA. The laboratory is regulated under CLIA as qualified to perform high-complexity testing. This test is used for clinical purposes. It should not be regarded as investigational or for research. Results based on detection/no detection of ribosomal RNA by amplified method. Suzan Camejo DO LAB - MICROBIOLOGY ORDERABLES Performing Organization Address [facility] Co de Phone Number [facility] [address] [place] [address], [facility] * IR ANGIO VISCERAL SELECTIVE (10/31/2013 1:37 PM CDT) Only the most recent of2 resultswithin the time period is included. Anatomical Region Laterality Modality Abdomen X-Ray Angiograph y 11/02/2013 4:50 PM CDT Impressions 11/06/2013 6:02 PM CDT Hepatic angiogram demonstrated the largest intrahepatic arterioportal shunt in segment 5/6, which was embolized with 2 4 mm x 5 cm 0.018 microcoils. Final angiogram demonstrated the of dilatation of arterial portal shunting with significantly improved perfusion to the rest of the liver parenchyma. Note: Findings were discussed with Dr. Biju Walker and it was Recommended to follow up with the Doppler examination of ??hepatic artery/liver in [address] Sandra Tee was present/performed the procedure and provided moderate sedation service. Please see the nursing sedation flow sheet. Narrative 11/06/2013 6:02 PM CDT History: Patient with a history persistent intrahepatic AV fistula, status post liver transplant was referred for hepatic angiogram and embolization of far AV fistula in the right lobe of liver. Operators: 1. ??Dr. Sandra Tee, Attending Physician Anesthesia: 1. ??Local anesthesia - 5 mL of 1% lidocaine. 2. ??General anesthesia Procedure: Via right common femoral access 1. Abdominal Aortogram 2. Selective catheterization of celiac artery (1st order) and angiogram. 3. Selective catheterization of proper hepatic artery (3rd order) artery and angiogram. 4. Selective catheterization of right hepatic artery (Additional Vessel) and angiogram. 5. Selective catheterization of segmental artery to segment 5/6 and angiogram. 6. Embolization of arteriovenous fistula with the two 4 mm x 5 cm microcoils. 7. Post embolization angiogram of right hepatic artery and proper hepatic artery. 5. Hemostasis with manual compression. . Fluoroscopic time: 25.1minutes Contrast: 75 mL of Omnipaque 350 Procedure: The procedure, risks, possible complications and the use of general anesthesia were explained to the parents and an informed consent was obtained from the father. Patient was given general anesthesia and was placed supine on the angiographic table. The right groin was prepped and draped in the usual sterile fashion. A dehydration plant operator film of abdomen was obtained, which was unremarkable. The right common femoral artery was accessed using a micro-puncture needle. Following a series of exchanges, a 5 vascular sheath was placed. Using a 4 [place] VCF catheter, an abdominal aortogram was obtained. The aortogram demonstrated normal contour of far abdominal aorta with the normal appearing celiac, spleen mesenteric as well as both renal arteries. An early opacification of portal vein was noted with obvious arterio-portal shunt through an AV fistula in the right lobe of liver. The celiac artery was then catheterized with 4 [place] Cobra catheter and angiogram was obtained. The angiogram demonstrated the above-mentioned arterioportal shunt in segment 5/6 with no other prominent arteries, suggesting significant arterioportal shunt. There is normal splenic as well as left gastric gastric artery. The common hepatic artery was then subselectively catheterized using a microcatheter and angiogram was obtained. The proper hepatic angiogram demonstrated arterioportal shunt in the segment 5/6 with the poor perfusion to the rest of the liver secondary to noticeable artery portal shunt. The left hepatic artery, artery to segment 7/8 as well as segment 4 unremarkable. The segmental branch of right hepatic artery was then subselectively catheterized using the microcatheter and angiogram was obtained. The angiogram confirmed single feeding vessel with a large AV fistula (measuring approximately 5 mm in diameter). These findings were discussed with the Dr. Biju Walker and it was decided to embolize the feeding vessel. The feeding vessel was then embolized with the two 4 mm x 5 cm 0.018 microcoils. Followup angiogram is demonstrated satisfactory occlusion with a noticeable improvement in the perfusion to rest of the liver with patent segmental artery to 7/8, left hepatic artery as well as the to segment 4. There is appreciable perfusion to the distal segment of segment 5/6 through collateral vessels. The catheters and the sheath was removed and hemostasis was achieved with manual compression A sterile dressing was applied. There were no immediate complications associated with the procedure. Patient was extubated and was transferred to the anesthesia recovery region in stable condition. Procedure Note Landy Tee MD - 11/06/2013 History: Patient with a history persistent intrahepatic AV fistula, status post liver transplant was referred for hepatic angiogram and embolization of far AV fistula in the right lobe of liver. Operators: 1. Dr. Sandra Tee, Attending Physician Anesthesia: 1. Local anesthesia - 5 mL of 1% lidocaine. 2. General anesthesia Procedure: Via right common femoral access 1. Abdominal Aortogram 2. Selective catheterization of celiac artery (1st order) and angiogram. 3. Selective catheterization of proper hepatic artery (3rd order) artery and angiogram. 4. Selective catheterization of right hepatic artery (Additional Vessel) and angiogram. 5. Selective catheterization of segmental artery to segment 5/6 and angiogram. 6. Embolization of arteriovenous fistula with the two 4 mm x 5 cm microcoils. 7. Post embolization angiogram of right hepatic artery and proper hepatic artery. 5. Hemostasis with manual compression. . Fluoroscopic time: 25.1minutes Contrast: 75 mL of Omnipaque 350 Procedure: The procedure, risks, possible complications and the use of general anesthesia were explained to the parents and an informed consent was obtained from the father. Patient was given general anesthesia and was placed supine on the angiographic table. The right groin was prepped and draped in the usual sterile fashion. A dehydration plant operator film of abdomen was obtained, which was unremarkable. The right common femoral artery was accessed using a micro-puncture needle. Following a series of exchanges, a 5 vascular sheath was placed. Using a 4 [place] VCF catheter, an abdominal aortogram was obtained. The aortogram demonstrated normal contour of far abdominal aorta with the normal appearing celiac, spleen mesenteric as well as both renal arteries. An early opacification of portal vein was noted with obvious arterio-portal shunt through an AV fistula in the right lobe of liver. The celiac artery was then catheterized with 4 [place] Cobra catheter and angiogram was obtained. The angiogram demonstrated the above-mentioned arterioportal shunt in segment 5/6 with no other prominent arteries, suggesting significant arterioportal shunt. There is normal splenic as well as left gastric gastric artery. The common hepatic artery was then subselectively catheterized using a microcatheter and angiogram was obtained. The proper hepatic angiogram demonstrated arterioportal shunt in the segment 5/6 with the poor perfusion to the rest of the liver secondary to noticeable artery portal shunt. The left hepatic artery, artery to segment 7/8 as well as segment 4 unremarkable. The segmental branch of right hepatic artery was then subselectively catheterized using the microcatheter and angiogram was obtained. The angiogram confirmed single feeding vessel with a large AV fistula (measuring approximately 5 mm in diameter). These findings were discussed with the Dr. Biju Walker and it was decided to embolize the feeding vessel. The feeding vessel was then embolized with the two 4 mm x 5 cm 0.018 microcoils. Followup angiogram is demonstrated satisfactory occlusion with a noticeable improvement in the perfusion to rest of the liver with patent segmental artery to 7/8, left hepatic artery as well as the to segment 4. There is appreciable perfusion to the distal segment of segment 5/6 through collateral vessels. The catheters and the sheath was removed and hemostasis was achieved with manual compression A sterile dressing was applied. There were no immediate complications associated with the procedure. Patient was extubated and was transferred to the anesthesia recovery region in stable condition. IMPRESSION Hepatic angiogram demonstrated the largest intrahepatic arterioportal shunt in segment 5/6, which was embolized with 2 4 mm x 5 cm 0.018 microcoils. Final angiogram demonstrated the of dilatation of arterial portal shunting with significantly improved perfusion to the rest of the liver parenchyma. Note: Findings were discussed with Dr. Biju Walker and it was Recommended to follow up with the Doppler examination of hepatic artery/liver in [address] Sandra Tee was present/performed the procedure and provided moderate sedation service. Please see the nursing sedation flow sheet. Landy Tee MD IR ORDERABLES * PATHOLOGY/CYTOLOGY REPORT ORDER (08/09/2013 1:18 PM CDT) Only the most recent of4 resultswithin the time period is included. Narrative 08/09/2013 1:18 PM CDT A scan was deleted from the Results section by S Interface [[id number]] on 08/09/2013 at ??1:18 PM (File: [id number]) A scan was deleted from the Results section by S Interface [[id number]] on 08/09/2013 at ??1:18 PM (File: [id number]) Transcriptions Document, Scanned - 08/09/2013 1:18 PM CDT Scanned Document LAB - PATHOLOGY/CYTO LOGY ORDERABLES * US DOPPLER PORTAL VEIN LIVER (04/05/2013 2:34 PM SOLVENT PROCESS EXTRACTOR OPERATOR) Only the most recent of2 resultswithin the time period is included. Anatomical Region Laterality Modality Abdomen Ultrasound 04/05/2013 2:40 PM SOLVENT PROCESS EXTRACTOR OPERATOR Impressions 04/05/2013 3:04 PM SOLVENT PROCESS EXTRACTOR OPERATOR Arterialization of the right portal vein waveform. This is suggestive of arterial portal fistula. Dictated by Marcel Capps on 04/05/2013 2:59 PM I, Alexandrea Yuen, have personally reviewed the images and I agree with this report. Narrative 04/05/2013 3:04 PM SOLVENT PROCESS EXTRACTOR OPERATOR Exam: Limited Doppler ultrasound of the right portal vein 04/05/2013 Indication: Evaluate right portal vein and hepatic artery Comparison: CT abdomen and pelvis from the same day, right upper quadrant Doppler ultrasound 04/03/2013 Technique/findings: targeted color Doppler and spectral analysis of the right portal vein and right hepatic artery was performed. The right portal vein waveform suggests arterialization of the right portal vein branch in question. The adjacent right hepatic artery branch seen on CT was not able to be identified by ultrasound. The proper hepatic artery is very difficult to evaluate with ultrasound due to its tortuosity. There are unchanged echoes along the ventral aspect of the main portal vein as seen on prior exam. Correlation with recent CT suggests this may be related to portal vein tortuosity rather than thrombus. Procedure Note Alexandrea Yuen MD - 04/05/2013 Exam: Limited Doppler ultrasound of the right portal vein 04/05/2013 Indication: Evaluate right portal vein and hepatic artery Comparison: CT abdomen and pelvis from the same day, right upper quadrant Doppler ultrasound 04/03/2013 Technique/findings: targeted color Doppler and spectral analysis of the right portal vein and right hepatic artery was performed. The right portal vein waveform suggests arterialization of the right portal vein branch in question. The adjacent right hepatic artery branch seen on CT was not able to be identified by ultrasound. The proper hepatic artery is very difficult to evaluate with ultrasound due to its tortuosity. There are unchanged echoes along the ventral aspect of the main portal vein as seen on prior exam. Correlation with recent CT suggests this may be related to portal vein tortuosity rather than thrombus. IMPRESSION Arterialization of the right portal vein waveform. This is suggestive of arterial portal fistula. Dictated by Marcel Capps on 04/05/2013 2:59 PM I, Alexandrea Yuen, have personally reviewed the images and I agree with this report. Jose G Eaton MD US ORDERABLES * CT ABDOMEN WITH IV CONTRAST (04/05/2013 11:22 AM SOLVENT PROCESS EXTRACTOR OPERATOR) Anatomical Region Laterality Modality Abdomen Computed Tomogra phy 04/05/2013 12:3 8 PM SOLVENT PROCESS EXTRACTOR OPERATOR Addenda This result is currently undergoing an addendum. Addendum by Kwadwo Zapata MD on 04/06/2013 1:53 PM SOLVENT PROCESS EXTRACTOR OPERATOR Addendum to CT abdomen with contrast dictation Addendum date: 04/06/2013 I reviewed the axial source images for the arterial phase and the coronal reformats. There is a ??image demonstrates a small blood-filled fluid space adjacent to the distended portal vein (55 of series 03) which measures approximately 8 x 4 mm in diameter. In the axial plane, on image 131 of series 4, it is 5.6 x 6.3 mm. There is a suggestion in the axial images that a right hepatic artery branch lies between this fluid collection and a dilated portal vein. The images are concerning for the presence of a small pseudoaneurysm extending from the portal vein with this actually representing the site of the fistula communication between the hepatic artery and the portal vein. 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 Impressions 04/05/2013 2:07 PM SOLVENT PROCESS EXTRACTOR OPERATOR 1.new findings involving the right hepatic artery and portal vein suggesting arterial portal venous fistula. This was not present on the CT study of March 10, 2013. Main right hepatic artery is enlarged relative to the left. 2. 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 3. Patent hepatic vein and patent portal vein. Narrative 04/05/2013 2:07 PM SOLVENT PROCESS EXTRACTOR OPERATOR CT abdomen with IV contrast April 05, 2013 Contrast dose: 120 cc of Optiray-320 intravenously injected at 3 cc per second with an arterial bolus tracking technique used for the arterial phase followed by a portal venous phase. Comparison: Comparison is made with March 10, 2013 exam. The arterial phase demonstrates a right directed hepatic artery branch extending to a surgical clip where it then reverses direction to be directed medially before making another hairpin direction reversal which is directed towards the liver . There is slight narrowing of the hepatic artery at the area of flexure adjacent to the surgical clip on image 48 of series 3. At the bifurcation of the right and left hepatic arteries, the right is seen to be larger than left. The right hepatic artery flows to position on image 56 of series 303 where it enters a right hepatic lobe lateral portal vein branch with perfusion of that segment of hepatic parenchyma. The appearance suggests a arterial portal fistula. This may be responsible for the finding of bidirectional flow described on previous portal vein ultrasound reports. The portal vein is patent. The anastomotic site is patent near the hilum. Hepatic veins are patent on the delayed venous phase and the anastomosis is widely patent. The delayed images to these demonstrates an area of hypodensity on image 44 of similar to within the liver consistent with recent biopsy site. Surgical clips near the liver hilum are consistent with history of transplant and are unchanged. The spleen is normal in size. Both kidneys have normal enhancement. The pancreas is unremarkable. No significant adenopathy is seen within the abdomen. Lung bases are free of infiltrate. Procedure Note Kwadwo Zapata MD - 04/05/2013 CT abdomen with IV contrast April 05, 2013 Contrast dose: 120 cc of Optiray-320 intravenously injected at 3 cc per second with an arterial bolus tracking technique used for the arterial phase followed by a portal venous phase. Comparison: Comparison is made with March 10, 2013 exam. The arterial phase demonstrates a right directed hepatic artery branch extending to a surgical clip where it then reverses direction to be directed medially before making another hairpin direction reversal which is directed towards the liver . There is slight narrowing of the hepatic artery at the area of flexure adjacent to the surgical clip on image 48 of series 3. At the bifurcation of the right and left hepatic arteries, the right is seen to be larger than left. The right hepatic artery flows to position on image 56 of series 303 where it enters a right hepatic lobe lateral portal vein branch with perfusion of that segment of hepatic parenchyma. The appearance suggests a arterial portal fistula. This may be responsible for the finding of bidirectional flow described on previous portal vein ultrasound reports. The portal vein is patent. The anastomotic site is patent near the hilum. Hepatic veins are patent on the delayed venous phase and the anastomosis is widely patent. The delayed images to these demonstrates an area of hypodensity on image 44 of similar to within the liver consistent with recent biopsy site. Surgical clips near the liver hilum are consistent with history of transplant and are unchanged. The spleen is normal in size. Both kidneys have normal enhancement. The pancreas is unremarkable. No significant adenopathy is seen within the abdomen. Lung bases are free of infiltrate. 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 This was not present on the CT study of March 10, 2013. Main right hepatic artery is enlarged relative to the left. 2. 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 3. Patent hepatic vein and patent portal vein. Kymberly Bateman DO CT ORDERABLES * AMYLASE BLOOD (04/04/2013 3:42 AM SOLVENT PROCESS EXTRACTOR OPERATOR) Only the most recent of6 resultswithin the time period is included. Amylase 32 5 - 65 U/L 04/04/2013 4:24 AM SOLVENT PROCESS EXTRACTOR OPERATOR [facility] Blood BLOOD SPECIMEN / Unknown 04/04/2013 3:42 AM SOLVENT PROCESS EXTRACTOR OPERATOR 04/04/2013 3:56 AM SOLVENT PROCESS EXTRACTOR OPERATOR Kymberly Bateman DO LAB - CHEMISTRY [place] [facility] [address] [place] [address] * (ABNORMAL) CERULOPLASMIN (04/03/2013 1:32 PM SOLVENT PROCESS EXTRACTOR OPERATOR) Only the most recent of2 resultswithin the time period is included. Pathologist [facility] Ceruloplasmin 17(L) 20 - 43 mg/dL 04/04/2013 11:58 AM SOLVENT PROCESS EXTRACTOR OPERATOR [facility] Comment: REFERENCE INTERVAL: Ceruloplasmin Access complete set of age- and/or gender-specific reference intervals for this test in the [facility] Test Directory ([employer]). Blood specimen (specimen) BLOOD SPECIMEN / Unknown 04/03/2013 1:32 PM SOLVENT PROCESS EXTRACTOR OPERATOR 04/03/2013 1:50 PM SOLVENT PROCESS EXTRACTOR OPERATOR Griselda Rainey MD LAB - CHEMISTRY [place] [facility] [address] [place] [address] * ANTI - SMOOTH MUSCLE ANTIBODY W REFLEX TITER (04/03/2013 8:05 AM SOLVENT PROCESS EXTRACTOR OPERATOR) Pathologist [facility] F-Actin Antibody IgG 18 0 - 19 Units 04/04/2013 1:15 PM SOLVENT PROCESS EXTRACTOR OPERATOR [facility] Comment: If F-Actin (Smooth Muscle) Antibody, IgG is negative, the Smooth Muscle Antibody titer by IFA is not performed. INTERPRETIVE INFORMATION: F-Actin (Smooth Muscle) Antibody, IgG by CELESTE ??19 Units or less ....... Negative ??20 - 30 Units .......... Weak Positive-Suggest repeat ? testing in two to three weeks ? with fresh specimen. ??31 Units or greater..... Positive-Suggestive of ? autoimmune hepatitis type 1 ? or chronic active hepatitis. F-actin antibodies have been shown to have greater sensitivity and specificity for autoimmune liver disease than anti-smooth muscle antibodies. Blood specimen (specimen) BLOOD SPECIMEN / Unknown Lab Venipuncture / Unknown 04/03/2013 8:05 AM SOLVENT PROCESS EXTRACTOR OPERATOR 04/03/2013 8:19 AM SOLVENT PROCESS EXTRACTOR OPERATOR Biju Walker MD LAB - SEROLOGY ORDER [facility] [address] [place] [address] * ANTI LIVER/KIDNEY MICROSOMAL ANTIBODY (04/03/2013 8:05 AM SOLVENT PROCESS EXTRACTOR OPERATOR) Liver/Kidney Microsomal Antibody IgG <1:20 <1:20 04/05/2013 3:32 PM SOLVENT PROCESS EXTRACTOR OPERATOR [facility] Comment: INTERPRETIVE INFORMATION: ??Slnux-Oesftl-Vgycpgivq Abs, IgG Liver-Kidney Microsome IgG antibody (anti-LKM), as detected by indirect immunofluorescent antibody (IFA) techniques, may be observed in patients with autoimmune hepatitis type 2 (AIH-2), AIH-2 associated with autoimmune udmlpeoqqhchhgyhyo-mxiyhheeuqq-zzmqhkfoef dystrophy (APECED), viral hepatitis C or D, and some forms of drug-induced hepatitis. This IFA does not differentiate among the four types of LKM antibodies (LKM-1, LKM-2, LKM-3, and a fourth type that recognizes CY and CY antigens). Of these, anti-LKM-1 (cytochrome [id number]) IgG antibodies are considered specific for AIH-2. Test developed and characteristics determined by [facility]. See Compliance Statement D: [employer] Blood specimen (specimen) BLOOD SPECIMEN / Unknown Lab Venipuncture / Unknown 04/03/2013 8:05 AM SOLVENT PROCESS EXTRACTOR OPERATOR 04/03/2013 8:19 AM SOLVENT PROCESS EXTRACTOR OPERATOR Biju Walker MD LAB - CHEMISTRY [place] Performing Organization Address [facility] de Phone Number [facility] [address] [place] [address] * [id number] BLOOD (04/03/2013 8:05 AM SOLVENT PROCESS EXTRACTOR OPERATOR) [facility] Aqofz-2-Hydlgq ypsin 166 100 - 200 mg/dL 04/04/2013 2:29 PM SOLVENT PROCESS EXTRACTOR OPERATOR [facility] Comment:To convert to umol/L , multiply mg/dL by 0.185 Blood specimen (specimen) BLOOD SPECIMEN / Unknown Lab Venipuncture / Unknown 04/03/2013 8:05 AM SOLVENT PROCESS EXTRACTOR OPERATOR 04/03/2013 8:19 AM SOLVENT PROCESS EXTRACTOR OPERATOR Biju Walker MD LAB - CHEMISTRY [place] Performing Organization Address [place] [facility] de Phone Number [facility] [address] [place] [address] * THIOPURINE METH TRANSFERASE (03/31/2013 8:17 AM SOLVENT PROCESS EXTRACTOR OPERATOR) [facility] Thiopurine Methyltransferase 32.5 U/mL 04/04/2013 7:06 AM SOLVENT PROCESS EXTRACTOR OPERATOR [employer] Comment: INTERPRETIVE INFORMATION: Thiopurine Methyltransferase, RBC Normal TPMT activity: 25-65 U/mL............Individuals are predicted to be at ?low risk of bone marrow toxicity as ?a consequence of standard thiopurine ?therapy; no dose adjustment is ?recommended. Abnormal TPMT activity: less than 25 U/mL ....Individuals are predicted to be at ?high risk of bone marrow toxicity ?as a consequence of standard ?thiopurine dosing; a dose reduction ?and therapeutic monitoring ??is ?recommended. greater than 65 U/mL..Individuals are not predicted to be ?at low risk for bone marrow toxicity ?as a consequence of standard ?thiopurine dosing, but may be at risk ?for therapeutic failure due to ?excessive inactivation of thiopurine ?drugs. Individuals may require higher ?than the standard dose: therapeutic ?monitoring is recommended. The TPMT, RBC assay is used as a screen to detect individuals with low (abnormal) TPMT activity that may be at risk for excessive myelosuppression when exposed to standard doses of thiopurines such as azathioprine (Imuran) and 6-mercaptopurine(Purinethol). TPMT is the primary metabolic route for inactivation of thiopurine drugs in the bone marrow. ??When TPMT activity is low, it is predicted that proportionately more 6-mercaptopurine is converted into the cytotoxic 6-thioguanine nucleotides, which will accumulate in the bone marrow and cause excessive toxicity. The activity of TPMT is measured by the nanomoles of 6-methylmercaptopurine (inactive metabolite) produced per 1 mL of packed red blood cells,(U/mL). TPMT phenotype testing does not replace the need for clinical monitoring of patients treated with thiopurine drugs. ??Genotype for TPMT cannot be inferred from TPMT activity (phenotype). Phenotype testing should not be requested for patients currently treated with thiopurine drugs, as results will be falsely low. Current TPMT phenotype may not reflect future TPMT phenotype, particularly in patients who received blood transfusion within 30-60 days of testing. ??TPMT enzyme activity can be inhibited by several drugs such as: naproxen (Aleve), ibuprofen (Advil,Motrin), ketoprofen(Orudis), furosemide (Lasix), sulfasalazine (Azulfidine),mesalamine (Asacol), olsalazine (Dipentum), mefenamic acid (Ponstel), thiazide diuretics, and benzoic acid inhibitors. ??TPMT inhibitors may contribute to falsely low results; patients should abstain from these drugs for at least 48 hours prior to TPMT testing. ??Falsely low results may also occur as a result of inappropriate specimen handling. Test developed and characteristics determined by [facility]. See Compliance Statement B: [email or web address] Blood specimen (specimen) BLOOD SPECIMEN / Unknown Lab Venipuncture / Unknown 03/31/2013 8:17 AM SOLVENT PROCESS EXTRACTOR OPERATOR 03/31/2013 8:23 AM SOLVENT PROCESS EXTRACTOR OPERATOR Biju Walker MD LAB - CHEMISTRY STEPHON AKINS [employer] [address] [place] [address] * (ABNORMAL) BASIC METABOLIC PANEL (CALCIUM IONIZED) (03/18/2013 8:30 AM SOLVENT PROCESS EXTRACTOR OPERATOR) [facility] Glucose 134(H) 70 - 105 mg/dL 03/18/2013 9:01 AM SOLVENT PROCESS EXTRACTOR OPERATOR [facility] Sodium 139 136 - 145 mmol/L 03/18/2013 9:01 AM [facility] Potassium 4.7 3.5 - 5.1 mmol/L 03/18/2013 9:01 AM [facility] Chloride 112(H) 98 - 107 mmol/L 03/18/2013 9:01 AM [facility] CO2 18(L) 20 - 28 mmol/L 03/18/2013 9:01 AM [facility] Calcium Ionized 1.23 mmol/L 3 9:01 AM [facility] Anion Gap 9 5 - 20 mmol/L 03/18/2013 9:01 AM [facility] BUN 15.2 6.1 - 21.0 mg/dL 03/18/2013 9:01 AM [facility] Creatinine 0.49(L) 0.62 - 1.00 mg/dL 03/18/2013 9:01 AM [facility] eGFR by MDRD mL/min/1. 73m2 03/18/2013 9:01 AM [facility] Comment:eGFR calculations ar e not performed for children under 18 years old. eGFR by MDRD mL/min/1. 73m2 03/18/2013 9:01 AM [facility] Comment:eGFR calculations ar e not performed for children under 18 years old. Calcium Ionized Adjusted 1.26 1.15 - 1.29 mmol/L 03/18/2013 9:01 AM [facility] pH 7.44 7.35 - 7.45 pH 03/18/2013 9:01 AM [facility] Temp 37.0 C 03/18/2013 9:01 AM [facility] Blood BLOOD SPECIMEN SUBMITTED IN HEPARINIZED COLLECTION TUBE / Unknown Lab Venipuncture / Unknown 03/18/2013 8:30 AM SOLVENT PROCESS EXTRACTOR OPERATOR 03/18/2013 8:35 AM [facility] Anthony Vargas DO LAB - CHEMISTRY STEPHON AKINS [facility] [address] [place] [address] * NEEDLE BIOPSY, LIVER (03/15/2013 7:13 AM SOLVENT PROCESS EXTRACTOR OPERATOR) Report Endoscopy POC _ Patient Name: Lili Aguila ?Gender: Female ?Date of : 2000 Age: 13 ? Admit Type: Outpatient Attending MD: Biju Walker MD ? Order #: [id number] _ Procedure: ? Liver biopsy Indications: ? Abnormal Liver enzymes (no detail) Providers: ? Biju Walker MD Referring MD: ?Josiah Palacios MD Medicines: ? General anesthesia Complications: ? No immediate complications. Estimated blood loss: Minimal. _ Procedure: ? Informed consent was obtained. Aseptic technique was used. ? The point of maximal dullness was determined by ? percussion. 1% Lidocaine local anesthesia was injected. ? The depth of the liver was confirmed by spinal needle ? sounding. The liver biopsy was accomplished without ? difficulty. The patient tolerated the procedure fairly ? well. Findings: ? Two 10-12 mm cores of tissue obtained. Tissue was sent for histology, ? culture and electron microscopy. The [employer] gun was used with ? ultrasound to dionisio the site. Recommendation: ?- Please call GI office in 2 weeks for the results. ? Keep scheduled appointments. Please keep us informed of ? patient progress. ? Do not hesitate to call GI for any questions / concerns. ? Procedure Code(s): ? --- Professional --- ? 69381, Ultrasonic guidance for needle placement (eg, biopsy, aspiration, ? injection, localization device), imaging supervision and interpretation ? 56384, Biopsy of liver, needle; percutaneous ? --- Technical --- ? 31524, Ultrasonic guidance for needle placement (eg, biopsy, aspiration, ? injection, localization device), imaging supervision and interpretation ? 68557, Biopsy of liver, needle; percutaneous Diagnosis Code(s): ? --- Professional --- ? 790.5, Other nonspecific abnormal serum enzyme levels ? --- Technical --- ? 790.5, Other nonspecific abnormal serum enzyme levels CPT (R) 2012 [employer]. All Rights Reserved. The codes documented in this report are preliminary and upon microfilm duplicating unit supervisor review may be revised to meet current compliance requirements. Dr. Biju Walker Biju Walker MD 03/15/2013 11:40 AM This report has been signed electronically. Number of Addenda: 0 Note Initiated On: 03/15/2013 7:13 AM Procedure Date: ? 03/15/2013 7:13:39 AM ? This report has been signed electronically. [facility] 03/15/2013 7:13 AM SOLVENT PROCESS EXTRACTOR OPERATOR Narrative [facility] - 03/15/2013 11:41 AM SOLVENT PROCESS EXTRACTOR OPERATOR Procedure Note Biju Walker MD - 03/15/2013 11:41 AM CST Biju Walker MD GI PROCEDURE ORDERAB LES Performing Organization Address City/[facility] Co de Phone Number [facility] [address] [place] [address] * VITAMIN A (11/30/2012 8:57 AM CDT) Vitamin A 0.40 0.26 - 0.70 mg/L 12/02/2012 10:59 PM CDT [facility] Retinyl Palmitate 0.02 0.00 - 0.10 mg/L 12/02/2012 10:59 PM CDT [facility] Interpretation Vitamin A Normal 12/02/2012 10:59 PM CDT [facility] Comment: Test developed and characteristics determined by [facility]. See Compliance Statement B: [email or web address] Blood specimen (specimen) BLOOD SPECIMEN / Unknown Venipuncture / Unknown 11/30/2012 8:57 AM CDT 11/30/2012 9:15 AM CDT Biju Walker MD LAB - CHEMISTRY ORDFelton AKINS Performing Organization Address City/State/[facility] de Phone Number [employer] [address] [place] [address] * VITAMIN E (11/30/2012 8:57 AM CDT) [facility] Vitamin E Alpha Tocopherol 7.8 5.5 - 18.0 mg/L 12/02/2012 10:59 PM CDT [employer] Comment: Test developed and characteristics determined by [facility]. See Compliance Statement B: [employer] Vitamin E Gamma Tocopherol 0.8 0.0 - 6.0 mg/L 12/02/2012 10:59 PM CDT [facility] [employer] Blood specimen (specimen) BLOOD SPECIMEN / Unknown Venipuncture / Unknown 11/30/2012 8:57 AM CDT 11/30/2012 9:15 AM CDT Biju Walker MD LAB - CHEMISTRY STEPHON AKINS Performing Organization Address [facility] de Phone Number [facility] [address] [place] [address] * BETTINA-BAR VIRUS PCR QUANTITATIVE BLOOD (11/30/2012 8:57 AM CDT) Only the most recent of3 resultswithin the time period is included. [facility] Bettina-Medrano Virus DNA PCR Quantitative No EBV DNA detected No EBV DNA detected 11/30/2012 1:16 PM CDT [facility] Blood BLOOD SPECIMEN / Unknown Venipuncture / Unknown 11/30/2012 8:57 AM CDT 11/30/2012 9:15 AM CDT Narrative [facility] - 11/30/2012 1:16 PM CDT This assay has a lower limit of detection of 3500 copies per mL (log 10 ?? value 3.5). Accurate quantitation is available in the range of 7500 ? copies per mL to 9,250,000 copies per mL (3.8 log 10 copies per mL to ? 6.97 log 10 copies per mL). ? Specimens with copy numbers below 7500 copies per mL will be reported as Positive for EBV DNA but below the level of accurate quantitation. ? Results from different laboratories may not be comparable. ??EBV levels can vary by ??specimen type: [facility] uses whole blood which is more sensitive than plasma for detection of EBV DNA. ??Also, the lack of a universal quantitative standard contributes to interlaboratory variability. Therefore, caution should be exercised when attempting to compare results obtained from different laboratories. It is recommended that for tracking relative changes in EBV DNA levels in particular patient, the same laboratory should test the specimen. Biju Walker MD LAB - MICROBIOLOGY O RDERABLES Performing Organization Address City/State/[facility] Co de Phone Number [facility] [address] [phone] * APHERESIS/TRANSFUSION ORDER (09/07/2012 2:01 PM CDT) Narrative 09/07/2012 2:01 PM CDT Procedure Note Document, Scanned - 09/07/2012 2:01 PM CDT Scanned Document NURSING - VITAL SIGN S AND ASSESSMENT * CARDIAC EKG ORDER (09/07/2012 2:01 PM CDT) Only the most recent of2 resultswithin the time period is included. Narrative 09/07/2012 2:01 PM CDT Procedure Note Document, Scanned - 09/07/2012 2:01 PM CDT Scanned Document CARDIAC SERVICES ORD ERABLES * PREPARE FFP UNIT(S) (08/29/2012 1:08 AM CDT) Only the most recent of4 resultswithin the time period is included. Unit Donor # [id number] 08/29/2012 1:08 AM CDT [facility] Product Code E2701 08/29/2012 1:08 AM T [facility] ABO Donor Type AB 08/29/2012 1:08 AM T [facility] Rh Type Unit POS 08/29/2012 1:08 AM [facility] Unit Status Returned 08/29/2012 1:08 AM T [facility] Unit Description E2701 Plasma,CPD, Thawed 08/29/2012 1:08 AM T [facility] Miscellaneous samples (specimen) BLOOD SPECIMEN / Unknown 08/26/2012 6:40 AM CDT Aliya Garcia MD LAB - BLOOD BANK ORD ERABLES [facility] * (ABNORMAL) BLOOD GASES ART + LYTES GLUC CA+ PANEL (08/28/2012 12:48 AM CDT) Only the most recent of8 resultswithin the time period is included. pH Arterial 7.40 7.35 - 7.45 pH 08/28/2012 1:02 AM [facility] pCO2 Arterial 43 32 - 45 mm hg 08/28/2012 1:02 AM [facility] pO2 Arterial 104 83 - 108 mm hg 08/28/2012 1:02 AM [facility] BE Arterial 2.0 -2.0 - 2.0 mmol/L 08/28/2012 1:02 AM [facility] O2 Saturation Arterial 98 95 - 99 % 08/28/2012 1:02 AM [facility] Chloride WB 107(H) 98 - 106 mmol/L 08/28/2012 1:02 AM [facility] Glucose WB 143(H) 70 - 106 mg/dL 08/28/2012 1:02 AM [facility] Calcium Ionized 1.17 mmol/L 3 1:02 AM [facility] Calcium Ionized Adjusted 1.17 1.15 - 1.29 mmol/L 08/28/2012 1:02 AM [facility] Potassium Whole Blood 4.1 3.4 - 4.5 mmol/L 08/28/2012 1:02 AM [facility] Sodium Whole Blood 138 136 - 146 mmol/L 08/28/2012 1:02 AM T [facility] Temp 37.0 C 08/28/2012 1:02 AM [facility] Hemoglobin Arterial 9.4(L) 12.0 - 16.0 gm/dL 08/28/2012 1:02 AM [facility] Oxyhemoglobin Arterial 96 94 - 98 % 08/28/2012 1:02 AM [facility] Carboxyhemoglobin Arterial 0.8 0.0 - 0.8 % 08/28/2012 1:02 AM [facility] Methemoglobin Arterial 1.1(H) 0.2 - 0.6 % 08/28/2012 1:02 AM [facility] O2 Content Arterial 12.9(L) 15.0 - 23.0 mg/dL 08/28/2012 1:02 AM [facility] P50 Arterial 26.29 25.3 - 26.8 mm hg 08/28/2012 1:02 AM [facility] TCO2 Arterial 27.6(H) 18 - 27 mmol/L 08/28/2012 1:02 AM [facility] Blood specimen (specimen) ARTERIAL BLOOD SPECIMEN / Unknown 08/28/2012 12:48 AM CDT 08/28/2012 12:56 AM T Waleska Hester MD LAB - BLOOD GASES OR DERABLES Performing Organization Address City/State/[facility] de Phone Number [facility] [address] [place] [address] * (ABNORMAL) BLOOD GASES ART + LYTES PANEL (08/26/2012 6:22 PM CDT) pH Arterial 7.35 7.35 - 7.45 pH 08/26/2012 6:29 PM T [facility] pCO2 Arterial 38 32 - 45 mm hg 08/26/2012 6:29 PM [facility] pO2 Arterial 142(H) 83 - 108 mm hg 08/26/2012 6:29 PM [facility] BE Arterial -4.2(L) -2.0 - 2.0 mmol/L 08/26/2012 6:29 PM [facility] O2 Saturation Arterial 99 95 - 99 % 08/26/2012 6:29 PM T [facility] Chloride WB 109(H) 98 - 106 mmol/L 08/26/2012 6:29 PM [facility] Potassium Whole Blood 4.2 3.4 - 4.5 mmol/L 08/26/2012 6:29 PM [facility] Sodium Whole Blood 140 136 - 146 mmol/L 08/26/2012 6:29 PM T [facility] Temp 37.0 C 08/26/2012 6:29 PM T [facility] Hemoglobin Arterial 11.9(L) 12.0 - 16.0 gm/dL 08/26/2012 6:29 PM [facility] Methemoglobin Arterial 1.1(H) 0.2 - 0.6 % 08/26/2012 6:29 PM [facility] O2 Content Arterial 16.4 15.0 - 23.0 mg/dL 08/26/2012 6:29 PM [facility] P50 Arterial 27.77(H) 25.3 - 26.8 mm hg 08/26/2012 6:29 PM [facility] Carboxyhemoglobin Arterial 0.4 0.0 - 0.8 % 08/26/2012 6:29 PM [facility] Oxyhemoglobin Arterial 97 94 - 98 % 08/26/2012 6:29 PM [facility] TCO2 Arterial 21.6 18 - 27 mmol/L 08/26/2012 6:29 PM [facility] Blood specimen (specimen) ARTERIAL BLOOD SPECIMEN / Unknown 08/26/2012 6:22 PM CDT 08/26/2012 6:[address] Patel MD LAB - BLOOD GASES OR DERABLES Performing Organization Address City/State/[facility] Co de Phone Number [facility] [address] [place] [address] * (ABNORMAL) BLOOD GASES ART + GLUC K CA+ PANEL (08/26/2012 1:46 PM CDT) Only the most recent of2 resultswithin the time period is included. pH Arterial 7.34(L) 7.35 - 7.45 pH 08/26/2012 1:53 PM [facility] pCO2 Arterial 37 32 - 45 mm hg 08/26/2012 1:53 PM [facility] pO2 Arterial 213(H) 83 - 108 mm hg 08/26/2012 1:53 PM [facility] BE Arterial -5.6(L) -2.0 - 2.0 mmol/L 08/26/2012 1:53 PM [facility] O2 Saturation Arterial 99 95 - 99 % 08/26/2012 1:53 PM [facility] Glucose WB 181(H) 70 - 106 mg/dL 08/26/2012 1:53 PM [facility] Calcium Ionized 1.10 mmol/L 3 1:53 PM [facility] Calcium Ionized Adjusted 1.07(L) 1.15 - 1.29 mmol/L 08/26/2012 1:53 PM [facility] Potassium Whole Blood 3.8 3.4 - 4.5 mmol/L 08/26/2012 1:53 PM [facility] Temp 37.0 C 08/26/2012 1:53 PM [facility] Hemoglobin Arterial 10.3(L) 12.0 - 16.0 gm/dL 08/26/2012 1:53 PM [facility] Oxyhemoglobin Arterial 98 94 - 98 % 08/26/2012 1:53 PM [facility] Methemoglobin Arterial 0.8(H) 0.2 - 0.6 % 08/26/2012 1:53 PM [facility] O2 Content Arterial 14.7(L) 15.0 - 23.0 mg/dL 08/26/2012 1:53 PM [facility] P50 Arterial 28.08(H) 25.3 - 26.8 mm hg 08/26/2012 1:53 PM [facility] Carboxyhemoglobin Arterial 0.5 0.0 - 0.8 % 08/26/2012 1:53 PM [facility] Blood specimen (specimen) ARTERIAL BLOOD SPECIMEN / Unknown 08/26/2012 1:46 PM T 08/26/2012 1:50 PM [facility] Megan Kline MD LAB - BLOOD GA SES ORDERABLES [facility] [address] [place] [address] * BLOOD TYPE ORGAN DONOR TRANSPLANT (08/26/2012 10:01 AM CDT) ABO Transplant Donor Type O 08/26/2012 10:42 AM CDT [facility] Rh Tranplant Donor Type POSITIVE 08/26/2012 10:42 AM CDT [facility] Blood Bank ID # UNOS# [id number] 08/26/2012 10:42 AM CDT [facility] Miscellaneous samples (specimen) BLOOD SPECIMEN / Unknown 08/26/2012 10:01 AM CDT 08/26/2012 10:09 AM CDT Biju Walker MD LAB - BLOOD BANK ORD ERABLES [facility] * HOLD SPECIMEN BLOOD (08/25/2012 10:20 PM CDT) Specimen Hold Specimen hold completed. 09/02/2012 12:01 AM CDT [facility] Blood specimen (specimen) BLOOD SPECIMEN / Unknown 08/25/2012 10:20 PM CDT 08/25/2012 10:32 PM CDT You Strickland MD LAB - CHEMISTRY STEPHON AKINS [facility] [address] [place] [address] * CROSSMATCH RBC (08/25/2012 9:56 PM CDT) Only the most recent of8 resultswithin the time period is included. Unit Donor # [id number] -C 08/29/2012 1:03 AM CDT [facility] Product Code E0420 08/29/2012 1:03 AM CDT [facility] Unit Description E0420 RBC, IRR, LR, -5 08/29/2012 1:03 AM CDT [facility] ABO Donor Type O 08/29/2012 1:03 AM CDT [facility] Rh Type Unit NEG 08/29/2012 1:03 AM CDT [facility] Crossmatch Interpretation Compatible 08/29/2012 1:03 AM CDT [facility] Unit Status Returned 08/29/2012 1:03 AM CDT [facility] Miscellaneous samples (specimen) BLOOD SPECIMEN / Unknown 08/25/2012 9:56 PM CDT 08/25/2012 10:10 PM CDT Aliya Garcia MD LAB - BLOOD BANK ORD ERABLES [facility] * CMV ANTIBODY IGM BLOOD (08/25/2012 9:55 PM CDT) Cytomegalovirus Antibody IgM 0.6 <0.9 08/29/2012 10:49 AM CDT [facility] Blood specimen (specimen) BLOOD SPECIMEN / Unknown 08/25/2012 9:55 PM CDT 08/25/2012 10:11 PM CDT Narrative [facility] - 08/29/2012 10:49 AM CDT ? <0.9 Negative ??0.9 - 1.0 Equivocal ?>=1.1 Positive Aliya Garcia MD LAB - CHEMISTRY STEPHON AKINS Performing Organization Address City/[facility] Co de Phone Number [facility] [address] [place] [address] * XR CHEST PA AND LATERAL (08/25/2012 8:55 PM CDT) Only the most recent of2 resultswithin the time period is included. Anatomical Region Laterality Modality Chest Radiographic Joanne ging 08/26/2012 8:02 AM CDT Impressions 08/26/2012 10:36 AM CDT No focal infiltrate. D: Sandra Alba M.D. Narrative 08/26/2012 10:36 AM CDT Exam: Chest; 2 views. History: Liver cancer Findings: There is no focal infiltrate, pleural effusion, or pneumothorax. The heart size and mediastinal contours are normal. No acute osseous abnormalities are seen. Procedure Note Alexandrea Yuen MD - 08/26/2012 Exam: Chest; 2 views. History: Liver cancer Findings: There is no focal infiltrate, pleural effusion, or pneumothorax. The heart size and mediastinal contours are normal. No acute osseous abnormalities are seen. IMPRESSION No focal infiltrate. D: Sandra Alba M.D. Aliya Garcia MD DIAGNOSTIC IMAGING O RDERABLES * PET CT WHOLE BODY (06/14/2012 11:29 AM SOLVENT PROCESS EXTRACTOR OPERATOR) Only the most recent of2 resultswithin the time period is included. Anatomical Region Laterality Modality Other Impressions 06/23/2012 5:30 PM SOLVENT PROCESS EXTRACTOR OPERATOR IMPRESSION: 1. Partial response to chemoembolization of left hepatic lobe hepatocellular carcinoma with interval resolution of intense uptake in the previously identified medial left hepatic lobe lesion and increased size of photopenic region in the medial left hepatic lobe. However, there has been interval development of new lesion with FDG uptake in the lateral segment of the left hepatic lobe which is suspicious for recurrent malignancy. 2. Slight increase in uptake in focus of uptake in the gastric hepatic ligament lymph node which is suspicious for malignancy. This examination has been personally reviewed and interpreted by Nanette Falk MD, ScM, PhD. Report dictated by Jemima Hathaway MD (resident). This report was approved ??by Jemima Hathaway M.D. ?? on 06/14/2012 2:26 PM . I, Dr. NANETTE FALK M.D. have personally reviewed and interpreted this examination/study. This report was electronically signed by NANETTE FALK M.D. ??on 06/14/2012 3:39 PM . ADDENDUM #1 The previously described suspicious lesion in the anterior right pelvis with increase metabolic activity is no longer appreciated in today's examination. This report was approved ??by Tien Sahni M.D. ?? on 06/22/2012 2:[address] NANETTE Lopez M.D. have personally reviewed and interpreted this examination/study. This report was electronically signed by NANETTE FALK M.D. ??on 06/23/2012 5:30 PM . 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 Referring Physician: Dr. Marcel Jordan HISTORY: 12-year-old female with history of fibrolamellar hepatocellular carcinoma. PET/CT dated 12/31/2011 demonstrated an FDG avid hypodensity in the left hepatic lobe, as well as multiple FDG avid soft tissue densities in the region of the mid pancreas, gastrohepatic space, and right lower quadrant, which were suspicious for malignancy. Chemoembolization was performed in 01/2012. Currently being treated with oral Sorasenib. Evaluate for treatment planning. TECHNIQUE: ??9.2 mCi of F-18 FDG by IV in the right AC fossa. PET/CT image acquisition from top of the head to the feet after approx. 60-90 min. post- injection with the CT being low-dose, non-contrast. No separate report for the CT was generated since it was of non-diagnostic quality. Blood glucose level at the time of injection was 95 mg/dl. FINDINGS: Comparison made to prior exam dated 12/31/2011. Head and neck: No abnormal FDG focus is present. Chest: Mild uptake in the retrosternal soft tissues is unchanged and consistent with benign thymic uptake. Abdomen and pelvis: There are chemoembolization changes within the left hepatic lobe with hypoattenuating regions identified in the medial and lateral segments on today's exam and on an outside exam dated 06/05/12. There has been with interval increase in photopenia in the medial left hepatic lobe. There is no longer abnormal FDG uptake in the medial left hepatic lobe. However, there is a new 10 mm focus of uptake in the lateral segment of the left hepatic lobe with SUV Max of 3.2. There is a small focus of uptake in the gastrohepatic space with an SUV Max of 3.5, previously 3.2. The previously identified uptake in the region of the mid pancreas is no longer present. A long segment of uptake in the ascending colon, as well as uptake in the right hemipelvis, is likely physiologic. There is subtle uptake in a normal-sized left inguinal lymph node which is likely reactive. Intense uptake in the soft tissues of the perineum may be related to menstrual cycle or urinary contamination. For reference, SUVmax of liver is 2.1. Musculoskeletal: No abnormal FDG focus is present. Procedure Note Nanette Falk MD - 10/09/2019 ORIGINAL REPORT Procedure: PET/CT Study. Referring Physician: Dr. Marcel Jordan HISTORY: 12-year-old female with history of fibrolamellar hepatocellularcarcinoma. PET/CT dated 12/31/2011 demonstrated an FDG avid hypodensity inthe left hepatic lobe, as well as multiple FDG avid soft tissue densitiesin the region of the mid pancreas, gastrohepatic space, and right lower quadrant, which weresuspicious for malignancy. Chemoembolization was performed in 01/2012.Currently being treated with oral Sorasenib. Evaluate for treatmentplanning. TECHNIQUE: 9.2 mCi of F-18 FDG by IV in the right AC fossa. PET/CT imageacquisition from top of the head to the feet after approx. 60-90 min.post-injection with the CT being low-dose, non-contrast. No separatereport for the CT was generated since it was of non-diagnostic quality. Blood glucose level at the time ofinjection was 95 mg/dl. FINDINGS: Comparison made to prior exam dated 12/31/2011. Head and neck: No abnormal FDG focus is present. Chest: Mild uptake in the retrosternal soft tissues is unchanged andconsistent with benign thymic uptake. Abdomen and pelvis: There are chemoembolization changes within the lefthepatic lobe with hypoattenuating regions identified in the medial andlateral segments on today's exam and on an outside exam dated 06/05/12.There has been with interval increase in photopenia in the medial left hepatic lobe. There is no longer abnormalFDG uptake in the medial left hepatic lobe. However, there is a new 10 mmfocus of uptake in the lateral segment of the left hepatic lobe with SUVMax of 3.2. There is a small focus of uptake in the gastrohepatic space with an SUV Max of 3.5, previously3.2. The previously identified uptake in the region of the mid pancreas isno longer present. A long segment of uptake in the ascending colon, as well as uptake in theright hemipelvis, is likely physiologic. There is subtle uptake in anormal-sized left inguinal lymph node which is likely reactive. Intenseuptake in the soft tissues of the perineum may be related to menstrual cycle or urinary contamination. For reference, SUVmax of liver is 2.1. Musculoskeletal: No abnormal FDG focus is present. IMPRESSION IMPRESSION: 1. Partial response to chemoembolization of left hepatic lobehepatocellular carcinoma with interval resolution of intense uptake in thepreviously identified medial left hepatic lobe lesion and increased sizeof photopenic region in the medial left hepatic lobe. However, there has been interval development of new lesionwith FDG uptake in the lateral segment of the left hepatic lobe which issuspicious for recurrent malignancy. 2. Slight increase in uptake in focus of uptake in the gastric hepaticligament lymph node which is suspicious for malignancy. This examination has been personally reviewed and interpreted by Nanette Hicks MD, ScM, PhD. Report dictated by Jemima Hathaway MD (resident). This report was approved by Jemima Hathaway M.D. on 06/14/2012 2:[address] NANETTE Lopez M.D. have personally reviewed and interpreted thisexamination/study. This report was electronically signed by NANETTE FALK M.D. on 06/14/20123:39 PM . ADDENDUM #1 The previously described suspicious lesion in the anterior right pelviswith increase metabolic activity is no longer appreciated in today'sexamination. This report was approved by Tien Sahni M.D. on 06/22/2012 2:[address] NANETTE Lopez M.D. have personally reviewed and interpreted thisexamination/study. This report was electronically signed by NANETTE FALK M.D. on 06/23/20125:30 PM . Marcel Jordan MD NM ORDERABLES * GLUCOSE - POINT OF CARE (AMB) [facility] (06/14/2012 8:51 AM SOLVENT PROCESS EXTRACTOR OPERATOR) Only the most recent of2 resultswithin the time period is included. Nanette Falk MD LAB - POINT OF CARE ORDERABLES [facility] * IP CONSULT TO ANESTHESIOLOGY (02/12/2012 4:47 PM CDT) Kailee Martel MD INPATIENT CONSULT OR DERABLES * NM BONE SCAN SPECT (02/10/2012 11:55 AM CDT) Anatomical Region Laterality Modality Other Impressions 02/13/2012 8:51 AM CDT Impression: Unremarkable bone scan with no evidence of bone metastases. This report was approved ??by Fred Mensah on 02/10/2012 4:55 PM . I, Dr. NANETTE FALK M.D. have personally reviewed and interpreted this examination/study. This report was electronically signed by NANETTE FALK M.D. ??on 02/10/2012 5:26 PM . Narrative 02/13/2012 8:51 AM CDT Procedure: Whole Body Bone Scan with additional pelvic SPECT Agent: ??17.1 ??mCi of Tc-99m MDP was injected IV in the left wrist. History: 11-year-old female with hepatocellular carcinoma. Previous PET/CT on 12/31/2011 showed a non-FDG avid lytic lesion in the right pubic bone. Technique: Anterior and posterior planar whole-body images and static views of head and neck were obtained 2 hours after tracer injection. Additional tomographic SPECT images of the pelvis were obtained. Findings: No prior bone scans are available for comparison. Physiologic uptake seen in the growth plates is appropriate for patient's age. A superficial focus of radioactivity at the left elbow corresponds to radiotracer injection site. The remaining skeleton demonstrates normal radiotracer uptake appropriate for patient's age. Pelvic SPECT images demonstrate symmetric uptake in the pelvic bones with no focal uptake in the right pubic bone to raise suspicion for metastatic bone disease. Procedure Note Nanette Falk MD - 07/18/2017 Procedure: Whole Body Bone Scan with additional pelvic SPECT Agent: 17.1 mCi of Tc-99m MDP was injected IV in the left wrist. History: 11-year-old female with hepatocellular carcinoma. Previous PET/CTon 12/31/2011 showed a non-FDG avid lytic lesion in the right pubic bone. Technique: Anterior and posterior planar whole-body images and staticviews of head and neck were obtained 2 hours after tracer injection.Additional tomographic SPECT images of the pelvis were obtained. Findings: No prior bone scans are available for comparison. Physiologic uptake seen in the growth plates is appropriate for patient'luiz. A superficial focus of radioactivity at the left elbow corresponds toradiotracer injection site. The remaining skeleton demonstrates normalradiotracer uptake appropriate for patient's age. Pelvic SPECT images demonstrate symmetric uptake in thepelvic bones with no focal uptake in the right pubic bone to raisesuspicion for metastatic bone disease. IMPRESSION Impression: Unremarkable bone scan with no evidence of bone metastases. This report was approved by Fred Mensah on 02/10/2012 4:[address] NANETTE Lopez M.D. have personally reviewed and interpreted thisexamination/study. This report was electronically signed by NANETTE FALK M.D. on 02/10/20125:26 PM . Callie GROSS ORDERABLES * NM BONE SCAN WHOLE BODY (02/10/2012 11:55 AM CDT) Anatomical Region Laterality Modality Abdomen Other Impressions 02/13/2012 8:51 AM CDT Impression: Unremarkable bone scan with no evidence of bone metastases. This report was approved ??by Fred Mensah on 02/10/2012 4:[address] NANETTE Lopez M.D. have personally reviewed and interpreted this examination/study. This report was electronically signed by NANETTE FALK M.D. ??on 02/10/2012 5:26 PM . Narrative 02/13/2012 8:51 AM CDT Procedure: Whole Body Bone Scan with additional pelvic SPECT Agent: ??17.1 ??mCi of Tc-99m MDP was injected IV in the left wrist. History: 11-year-old female with hepatocellular carcinoma. Previous PET/CT on 12/31/2011 showed a non-FDG avid lytic lesion in the right pubic bone. Technique: Anterior and posterior planar whole-body images and static views of head and neck were obtained 2 hours after tracer injection. Additional tomographic SPECT images of the pelvis were obtained. Findings: No prior bone scans are available for comparison. Physiologic uptake seen in the growth plates is appropriate for patient's age. A superficial focus of radioactivity at the left elbow corresponds to radiotracer injection site. The remaining skeleton demonstrates normal radiotracer uptake appropriate for patient's age. Pelvic SPECT images demonstrate symmetric uptake in the pelvic bones with no focal uptake in the right pubic bone to raise suspicion for metastatic bone disease. Procedure Note Nanette Falk MD - 07/18/2017 Procedure: Whole Body Bone Scan with additional pelvic SPECT Agent: 17.1 mCi of Tc-99m MDP was injected IV in the left wrist. History: 11-year-old female with hepatocellular carcinoma. Previous PET/CTon 12/31/2011 showed a non-FDG avid lytic lesion in the right pubic bone. Technique: Anterior and posterior planar whole-body images and staticviews of head and neck were obtained 2 hours after tracer injection.Additional tomographic SPECT images of the pelvis were obtained. Findings: No prior bone scans are available for comparison. Physiologic uptake seen in the growth plates is appropriate for patient'luiz. A superficial focus of radioactivity at the left elbow corresponds toradiotracer injection site. The remaining skeleton demonstrates normalradiotracer uptake appropriate for patient's age. Pelvic SPECT images demonstrate symmetric uptake in thepelvic bones with no focal uptake in the right pubic bone to raisesuspicion for metastatic bone disease. IMPRESSION Impression: Unremarkable bone scan with no evidence of bone metastases. This report was approved by Fred Mensah on 02/10/2012 4:55 PM . IDr. NANETTE M.D. have personally reviewed and interpreted thisexamination/study. This report was electronically signed by NANETTE FALK M.D. on 02/10/20125:26 PM . Marcel Jordan MD NM ORDERABLES * (ABNORMAL) HEMOGLOBIN (02/09/2012 5:33 PM CDT) Hemoglobin 9.8(L) 11.5 - 15.5 g/dL 02/09/2012 6:46 PM CDT [facility] Blood specimen (specimen) BLOOD SPECIMEN / Unknown 02/09/2012 5:33 PM CDT 02/09/2012 5:41 PM CDT Marcel Jordan MD LAB - HEMATOLOGY ORDERABLES [facility] [address] [place] [address] * IP CONSULT TO PEDIATRIC SURGERY (02/08/2012 9:43 PM CDT) Ashely Altman DO INPATIENT CONSULT ORDERABLES * POTASSIUM BLOOD (02/03/2012 5:11 AM CDT) Potassium 4.1 3.5 - 5.1 mmol/L 02/03/2012 5:36 AM CDT [facility] Blood specimen (specimen) BLOOD SPECIMEN / Unknown 02/03/2012 5:11 AM CDT 02/03/2012 5:21 AM CDT Jose Mac MD LAB - CHEMISTR Y ORDERABLES Performing Organization Address [facility] Co de Phone Number [facility] [address] [place] [address] * (ABNORMAL) BLOOD GASES CAP + CA+ PANEL (01/30/2012 7:58 AM CDT) pH Capillary 7.358 7.35 - 7.45 pH 01/30/2012 8:07 AM [facility] pCO2 Capillary 44.0 32 - 45 mm hg 01/30/2012 8:07 AM [facility] pO2 Capillary 64.0(L) 83 - 108 mm hg 01/30/2012 8:07 AM [facility] O2 Saturation Capillary 93.3(L) 95 - 99 % 01/30/2012 8:07 AM [facility] Oxyhemoglobin Capillary 91.4(L) 94 - 98 % 01/30/2012 8:07 AM [facility] Calcium Ionized Adjusted 1.24 1.15 - 1.29 mmol/L 01/30/2012 8:07 AM [facility] Temp 37.0 C 01/30/2012 8:07 AM [facility] O2 Content Capillary 16.6 15 - 23 mg/dL 01/30/2012 8:07 AM [facility] Carboxyhemoglobin Capillary 1.4(H) 0 - 0.8 % 01/30/2012 8:07 AM [facility] Methemoglobin Capillary 0.6 0.2 - 0.6 % 01/30/2012 8:07 AM CDT [facility] Calcium Ionized 1.27 mmol/L 201 2 8:07 AM CDT [facility] Hemoglobin Capillary 12.9 11.5 - 15.5 gm/dL 01/30/2012 8:07 AM CDT [facility] BE Capillary -0.7 -2 - 2 mmol/L 01/30/2012 8:07 AM CDT [facility] P50 Capillary 24.62(L) 25.3 - 26.8 mm hg 01/30/2012 8:07 AM CDT [facility] Blood specimen (specimen) CAPILLARY BLOOD / Unknown 01/30/2012 7:58 AM CDT 01/30/2012 8:04 AM CDT Narrative [facility] - 01/30/2012 8:07 AM CDT NOTE: Reference ranges are for Arterial Blood. Giuseppe Sandoval MD LAB - BLOOD GASES OR DERABLES Performing Organization Address City/State/[facility] Co de Phone Number [facility] [address] [place] [address] * IR VASCULAR CLOSURE DEVICE (01/29/2012 1:38 PM CDT) Anatomical Region Laterality Modality Other Impressions 01/29/2012 4:42 PM CDT IMPRESSION: ?? Successful transarterial middle hepatic artery, lower branch right anterior sector hepatic artery, medial branch persistent the right hepatic artery, left hepatic artery chemoembolization of hypervascular mass as described in detail above. Followup liver protocol MRI is recommended in 6 weeks to assess treatment response. I, Dr Mitchell Zimmerman. Attending, attest that I was present for the merino portions of the procedure and available for the entirety of the procedure. ?? Narrative 01/29/2012 4:42 PM CDT January 29, 2012 Procedure: 1. Transhepatic chemoembolization of right hepatic artery branch supplying HCC 2. Transhepatic chemoembolization of middle hepatic artery branch supplying HCC 3. Transhepatic chemoembolization of middle hepatic artery branch supplying HCC 4. 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 Operators: ??Mitchell Zimmerman MD, Attending; Nahed Tomlinson MD, Resident; and Janet Garcia RN Consent obtained from patient Anesthesia type: General endotracheal intubation Contrast: ??50 cc Visipaque 320 Fluoroscopy time: 17 minutes TECHNIQUE: Patient position: ??supine Arterial access: ??Under ultrasound guidance, 21 gauge needle, singlewall puncture right common femoral artery Access sheath: ??5 Fr vascular sheath Catheters: ??4 Malawian glide Cobra catheter Catheter positions and pre-embolization angiographic imagin Malawian Cobra catheter celiac artery; 4 Malawian Cobra catheter/common hepatic artery; 4 Mal[place]ian Cobra catheter right posterior hepatic artery/4 Malawian Cobra catheter/middle hepatic artery/4 [place]ian Cobra catheter right anterior hepatic artery/4 Mal[place]ian Cobra catheter left gastric artery/4 [place]ian Cobra catheter left hepatic artery Embolization catheter positions: ??Medial branch posterior right hepatic artery, middle hepatic artery, lower branch anterior right posterior hepatic artery, left hepatic artery Catheter positions and post-embolization angiographic imaging: Medial branch posterior right hepatic artery, middle hepatic artery, lower branch anterior right posterior hepatic artery, left hepatic artery Embolization materials: 50 mg Epirubicin, 4cc 75-150 LCBeads, 10 cc of 40 to 100 micron Embospheres; the dose was administered into the following arteries: Medial branch posterior right hepatic artery, middle hepatic artery, lower branch anterior right posterior hepatic artery, left hepatic artery Groin Hemostasis: AngioSeal closure device Procedure description: The risks, benefits and alternatives to the procedure were discussed with the patient mother and father and informed written and verbal consent was obtained. The patient was brought into the angio suite and placed supine on the angio table. His right groin was prepped prepped and draped with surgical technique. 1% lidocaine was used for skin anesthesia. Under ultrasound guidance, a ??21-gauge singlewall needle was used to access the right common femoral artery. The micropuncture set was removed over an 035 Bentson wire over which a 5 Malawian vascular sheath with a sidearm flush was attached. Using a 4 Malawian Cobra catheter and 035 Glidewire, the celiac artery was catheterized. Digital subtraction angiography was performed demonstrating the left hepatic artery replaced to the left gastric artery. Next, the 4 [place]ian Cobra catheter was used to catheterize the common hepatic artery demonstrated tumor blush supplied by branches of the middle hepatic, right anterior and right posterior sector hepatic arteries. Next, the 4 [place]awian Cobra catheter was advanced into the talent scout right hepatic artery and digital subtraction angiography followed by embolization was performed. Next, the microcatheter was advanced into the middle branch right hepatic artery and digital subtraction angiography followed by embolization was performed. Next, the catheter was advanced into the lower branch of the anterior right hepatic artery and digital subtraction angiography followed by embolization was performed. Next, completion angiography was performed in the common hepatic artery demonstrating antegrade flow to the rest of the right liver and stasis in the embolized arterial branches. The 4 Malawian Cobra catheter was used to catheterize the left gastric artery and its subtraction angiography was performed. Next, the 4 Malawian Cobra catheter was advanced into the left hepatic artery and digital subtraction angiography was performed demonstrating arterial supply to hypervascular tumor. From this position, chemoembolization was performed to stasis. Next, completion digital subtraction angiography was performed in the left gastric artery demonstrating antegrade flow to the stomach and absent flow in the embolized in left hepatic artery. All wires and catheters were removed and a right common femoral artery angiogram was performed through the sheath demonstrating appropriate puncture above the bifurcation for use of vascular closure devise. Angioseal vascular closure device was used for arterial closure and sterile dressing was applied. The patient tolerated the procedure well and was transferred to recovery in stable condition. Complications: None immediate. FINDINGS: Hepatic arterial anatomy: ?Left hepatic artery replaced to the left gastric artery. Portal vein: ?Not visualized on venous and delayed images. The portal vein is widely patent on most recent CT. Masses: ? Hypervascular masses supplied by left hepatic artery, right hepatic artery and middle hepatic artery Postembolization findings: ?Stasis of contrast in the embolized hypervascular mass. Procedure Note Mitchell Zimmerman MD - 07/18/2017 January 29, 2012 Procedure: 1. Transhepatic chemoembolization of right hepatic artery branch supplyingHCC 2. Transhepatic chemoembolization of middle hepatic artery branchsupplying HCC 3. Transhepatic chemoembolization of middle hepatic artery branchsupplying HCC 4. Transhepatic embolization of left hepatic artery supplying HCC History: 11-year-old girl with fibrolamellar HCC for tumor embolization tothe stage tumor for possible transplant. Operators: Mitchell Zimmerman MD, Attending; Nahed Tomlinson MD, Resident;and Janet Garcia RN Consent obtained from patient Anesthesia type: General endotracheal intubation Contrast: 50 cc Visipaque 320 Fluoroscopy time: 17 minutes TECHNIQUE: Patient position: supine Arterial access: Under ultrasound guidance, 21 gauge needle, singlewallpuncture right common femoral artery Access sheath: 5 Fr vascular sheath Catheters: 4 Malawian glide Cobra catheter Catheter positions and pre-embolization angiographic imagin FrenchCobra catheter celiac artery; 4 Malawian Cobra catheter/common hepaticartery; 4 Malawian Cobra catheter right posterior hepatic artery/4 FrenchCobra catheter/middle hepatic artery/4 Mal[place]ian Cobra catheter right anterior hepatic artery/4 Malawian Cobracatheter left gastric artery/4 Malawian Cobra catheter left hepatic artery Embolization catheter positions: Medial branch posterior right hepaticartery, middle hepatic artery, lower branch anterior right posteriorhepatic artery, left hepatic artery Catheter positions and post-embolization angiographic imaging: Medialbranch posterior right hepatic artery, middle hepatic artery, lower branchanterior right posterior hepatic artery, left hepatic artery Embolization materials: 50 mg Epirubicin, 4cc 75-150 LCBeads, 10 cc of 40to 100 micron Embospheres; the dose was administered into the followingarteries: Medial branch posterior right hepatic artery, middle hepaticartery, lower branch anterior right posterior hepatic artery, left hepatic artery Groin Hemostasis: AngioSeal closure device Procedure description: The risks, benefits and alternatives to the procedure were discussed withthe patient mother and father and informed written and verbal consent wasobtained. The patient was brought into the angio suite and placed supineon the angio table. His right groin was prepped prepped and draped with surgical technique. 1% lidocainewas used for skin anesthesia. Under ultrasound guidance, a 21-gaugesinglewall needle was used to access the right common femoral artery. Themicropuncture set was removed over an 035 Bentson wire over which a 5 Malawian vascular sheath with a sidearmflush was attached. Using a 4 Malawian Cobra catheter and 035 Glidewire, the celiac artery wascatheterized. Digital subtraction angiography was performed demonstratingthe left hepatic artery replaced to the left gastric artery. Next, the 4 Malawian Cobra catheter was used to catheterize the commonhepatic artery demonstrated tumor blush supplied by branches of the middlehepatic, right anterior and right posterior sector hepatic arteries. Next, the 4 Malawian Cobra catheter was advanced into the talent scout righthepatic artery and digital subtraction angiography followed byembolization was performed. Next, the microcatheter was advanced into the middle branch right hepaticartery and digital subtraction angiography followed by embolization wasperformed. Next, the catheter was advanced into the lower branch of the anteriorright hepatic artery and digital subtraction angiography followed byembolization was performed. Next, completion angiography was performed in the common hepatic arterydemonstrating antegrade flow to the rest of the right liver and stasis inthe embolized arterial branches. The 4 [place] Cobra catheter was used to catheterize the left gastricartery and its subtraction angiography was performed. Next, the 4 [place] Cobra catheter was advanced into the left hepaticartery and digital subtraction angiography was performed demonstratingarterial supply to hypervascular tumor. From this position, chemoembolization was performed to stasis. Next, completion digital subtraction angiography was performed in the leftgastric artery demonstrating antegrade flow to the stomach and absent flowin the embolized in left hepatic artery. All wires and catheters were removed and a right common femoral arteryangiogram was performed through the sheath demonstrating appropriatepuncture above the bifurcation for use of vascular closure devise.Angioseal vascular closure device was used for arterial closure and sterile dressing was applied. The patient tolerated the procedure well and was transferred to recoveryin stable condition. Complications: None immediate. FINDINGS: Hepatic arterial anatomy: Left hepatic artery replaced to the leftgastric artery. Portal vein: Not visualized on venous and delayedimages. The portal vein is widely patent on most recent CT. Masses: Hypervascular masses supplied byleft hepatic artery, right hepatic artery and middle hepatic artery Postembolization findings: Stasis of contrast in the embolizedhypervascular mass. IMPRESSION IMPRESSION: Successful transarterial middle hepatic artery, lower branch rightanterior sector hepatic artery, medial branch persistent the right hepaticartery, left hepatic artery chemoembolization of hypervascular mass asdescribed in detail above. Followup liver protocol MRI is recommended in 6 weeks to assess treatmentresponse. I, Dr Mitchell Zimmerman. Attending, attest that I was present for the keyportions of the procedure and available for the entirety of the procedure. Mitchell Zimmerman MD IR ORDERABLES * IR ANGIO SELECTIVE (01/29/2012 1:38 PM CDT) Only the most recent of3 resultswithin the time period is included. Anatomical Region Laterality Modality Other Impressions 01/29/2012 4:42 PM CDT IMPRESSION: ?? Successful transarterial middle hepatic artery, lower branch right anterior sector hepatic artery, medial branch persistent the right hepatic artery, left hepatic artery chemoembolization of hypervascular mass as described in detail above. Followup liver protocol MRI is recommended in 6 weeks to assess treatment response. I, Dr Mitchell Zimmerman. Attending, attest that I was present for the merino portions of the procedure and available for the entirety of the procedure. ?? Narrative 01/29/2012 4:42 PM CDT January 29, 2012 Procedure: 1. Transhepatic chemoembolization of right hepatic artery branch supplying HCC 2. Transhepatic chemoembolization of middle hepatic artery branch supplying HCC 3. Transhepatic chemoembolization of middle hepatic artery branch supplying HCC 4. 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 Operators: ??Mitchell Zimmerman MD, Attending; Nahed Tomlinson MD, Resident; and Janet Garcia RN Consent obtained from patient Anesthesia type: General endotracheal intubation Contrast: ??50 cc Visipaque 320 Fluoroscopy time: 17 minutes TECHNIQUE: Patient position: ??supine Arterial access: ??Under ultrasound guidance, 21 gauge needle, singlewall puncture right common femoral artery Access sheath: ??5 Fr vascular sheath Catheters: ??4 Mal[place]ian glide Cobra catheter Catheter positions and pre-embolization angiographic imagin [place]ian Cobra catheter celiac artery; 4 [place] Cobra catheter/common hepatic artery; 4 [place] Cobra catheter right posterior hepatic artery/4 [place] Cobra catheter/middle hepatic artery/4 [place] Cobra catheter right anterior hepatic artery/4 [place] Cobra catheter left gastric artery/4 [place] Cobra catheter left hepatic artery Embolization catheter positions: ??Medial branch posterior right hepatic artery, middle hepatic artery, lower branch anterior right posterior hepatic artery, left hepatic artery Catheter positions and post-embolization angiographic imaging: Medial branch posterior right hepatic artery, middle hepatic artery, lower branch anterior right posterior hepatic artery, left hepatic artery Embolization materials: 50 mg Epirubicin, 4cc 75-150 LCBeads, 10 cc of 40 to 100 micron Embospheres; the dose was administered into the following arteries: Medial branch posterior right hepatic artery, middle hepatic artery, lower branch anterior right posterior hepatic artery, left hepatic artery Groin Hemostasis: AngioSeal closure device Procedure description: The risks, benefits and alternatives to the procedure were discussed with the patient mother and father and informed written and verbal consent was obtained. The patient was brought into the angio suite and placed supine on the angio table. His right groin was prepped prepped and draped with surgical technique. 1% lidocaine was used for skin anesthesia. Under ultrasound guidance, a ??21-gauge singlewall needle was used to access the right common femoral artery. The micropuncture set was removed over an 035 Bentson wire over which a 5 Malawian vascular sheath with a sidearm flush was attached. Using a 4 [place] Cobra catheter and 035 Glidewire, the celiac artery was catheterized. Digital subtraction angiography was performed demonstrating the left hepatic artery replaced to the left gastric artery. Next, the 4 [place] Cobra catheter was used to catheterize the common hepatic artery demonstrated tumor blush supplied by branches of the middle hepatic, right anterior and right posterior sector hepatic arteries. Next, the 4 [place] Cobra catheter was advanced into the talent scout right hepatic artery and digital subtraction angiography followed by embolization was performed. Next, the microcatheter was advanced into the middle branch right hepatic artery and digital subtraction angiography followed by embolization was performed. Next, the catheter was advanced into the lower branch of the anterior right hepatic artery and digital subtraction angiography followed by embolization was performed. Next, completion angiography was performed in the common hepatic artery demonstrating antegrade flow to the rest of the right liver and stasis in the embolized arterial branches. The 4 [place] Cobra catheter was used to catheterize the left gastric artery and its subtraction angiography was performed. Next, the 4 [place] Cobra catheter was advanced into the left hepatic artery and digital subtraction angiography was performed demonstrating arterial supply to hypervascular tumor. From this position, chemoembolization was performed to stasis. Next, completion digital subtraction angiography was performed in the left gastric artery demonstrating antegrade flow to the stomach and absent flow in the embolized in left hepatic artery. All wires and catheters were removed and a right common femoral artery angiogram was performed through the sheath demonstrating appropriate puncture above the bifurcation for use of vascular closure devise. Angioseal vascular closure device was used for arterial closure and sterile dressing was applied. The patient tolerated the procedure well and was transferred to recovery in stable condition. Complications: None immediate. FINDINGS: Hepatic arterial anatomy: ?Left hepatic artery replaced to the left gastric artery. Portal vein: ?Not visualized on venous and delayed images. The portal vein is widely patent on most recent CT. Masses: ? Hypervascular masses supplied by left hepatic artery, right hepatic artery and middle hepatic artery Postembolization findings: ?Stasis of contrast in the embolized hypervascular mass. Procedure Note Mitchell Zimmerman MD - 07/18/2017 January 29, 2012 Procedure: 1. Transhepatic chemoembolization of right hepatic artery branch supplyingHCC 2. Transhepatic chemoembolization of middle hepatic artery branchsupplying HCC 3. Transhepatic chemoembolization of middle hepatic artery branchsupplying HCC 4. Transhepatic embolization of left hepatic artery supplying HCC History: 11-year-old girl with fibrolamellar HCC for tumor embolization tothe stage tumor for possible transplant. Operators: Mitchell Zimmerman MD, Attending; Nahed Tomlinson MD, Resident;and Janet Garcia RN Consent obtained from patient Anesthesia type: General endotracheal intubation Contrast: 50 cc Visipaque 320 Fluoroscopy time: 17 minutes TECHNIQUE: Patient position: supine Arterial access: Under ultrasound guidance, 21 gauge needle, singlewallpuncture right common femoral artery Access sheath: 5 Fr vascular sheath Catheters: 4 [place] glide Cobra catheter Catheter positions and pre-embolization angiographic imagin FrenchCobra catheter celiac artery; 4 [place] Cobra catheter/common hepaticartery; 4 [place] Cobra catheter right posterior hepatic artery/4 FrenchCobra catheter/middle hepatic artery/4 [place] Cobra catheter right anterior hepatic artery/4 [place]ian Cobracatheter left gastric artery/4 [place] Cobra catheter left hepatic artery Embolization catheter positions: Medial branch posterior right hepaticartery, middle hepatic artery, lower branch anterior right posteriorhepatic artery, left hepatic artery Catheter positions and post-embolization angiographic imaging: Medialbranch posterior right hepatic artery, middle hepatic artery, lower branchanterior right posterior hepatic artery, left hepatic artery Embolization materials: 50 mg Epirubicin, 4cc 75-150 LCBeads, 10 cc of 40to 100 micron Embospheres; the dose was administered into the followingarteries: Medial branch posterior right hepatic artery, middle hepaticartery, lower branch anterior right posterior hepatic artery, left hepatic artery Groin Hemostasis: AngioSeal closure device Procedure description: The risks, benefits and alternatives to the procedure were discussed withthe patient mother and father and informed written and verbal consent wasobtained. The patient was brought into the angio suite and placed supineon the angio table. His right groin was prepped prepped and draped with surgical technique. 1% lidocainewas used for skin anesthesia. Under ultrasound guidance, a 21-gaugesinglewall needle was used to access the right common femoral artery. Themicropuncture set was removed over an 035 Bentson wire over which a 5 Mal[place]ian vascular sheath with a sidearmflush was attached. Using a 4 [place] Cobra catheter and 035 Glidewire, the celiac artery wascatheterized. Digital subtraction angiography was performed demonstratingthe left hepatic artery replaced to the left gastric artery. Next, the 4 [place] Cobra catheter was used to catheterize the commonhepatic artery demonstrated tumor blush supplied by branches of the middlehepatic, right anterior and right posterior sector hepatic arteries. Next, the 4 [place] Cobra catheter was advanced into the talent scout righthepatic artery and digital subtraction angiography followed byembolization was performed. Next, the microcatheter was advanced into the middle branch right hepaticartery and digital subtraction angiography followed by embolization wasperformed. Next, the catheter was advanced into the lower branch of the anteriorright hepatic artery and digital subtraction angiography followed byembolization was performed. Next, completion angiography was performed in the common hepatic arterydemonstrating antegrade flow to the rest of the right liver and stasis inthe embolized arterial branches. The 4 [place] Cobra catheter was used to catheterize the left gastricartery and its subtraction angiography was performed. Next, the 4 [place] Cobra catheter was advanced into the left hepaticartery and digital subtraction angiography was performed demonstratingarterial supply to hypervascular tumor. From this position, chemoembolization was performed to stasis. Next, completion digital subtraction angiography was performed in the leftgastric artery demonstrating antegrade flow to the stomach and absent flowin the embolized in left hepatic artery. All wires and catheters were removed and a right common femoral arteryangiogram was performed through the sheath demonstrating appropriatepuncture above the bifurcation for use of vascular closure devise.Angioseal vascular closure device was used for arterial closure and sterile dressing was applied. The patient tolerated the procedure well and was transferred to recoveryin stable condition. Complications: None immediate. FINDINGS: Hepatic arterial anatomy: Left hepatic artery replaced to the leftgastric artery. Portal vein: Not visualized on venous and delayedimages. The portal vein is widely patent on most recent CT. Masses: Hypervascular masses supplied byleft hepatic artery, right hepatic artery and middle hepatic artery Postembolization findings: Stasis of contrast in the embolizedhypervascular mass. IMPRESSION IMPRESSION: Successful transarterial middle hepatic artery, lower branch rightanterior sector hepatic artery, medial branch persistent the right hepaticartery, left hepatic artery chemoembolization of hypervascular mass asdescribed in detail above. Followup liver protocol MRI is recommended in 6 weeks to assess treatmentresponse. Dr Mitchell Lopez. Attending, attest that I was present for the keyportions of the procedure and available for the entirety of the procedure. Mitchell Zimmerman MD IR ORDERABLES * IR ANGIO EXTREMITY PROCEDURAL CODE (01/29/2012 1:38 PM CDT) Only the most recent of2 resultswithin the time period is included. Anatomical Region Laterality Modality Other Impressions 01/29/2012 4:42 PM CDT IMPRESSION: ?? Successful transarterial middle hepatic artery, lower branch right anterior sector hepatic artery, medial branch persistent the right hepatic artery, left hepatic artery chemoembolization of hypervascular mass as described in detail above. Followup liver protocol MRI is recommended in 6 weeks to assess treatment response. Dr Mitchell Lopez. Attending, attest that I was present for the merino portions of the procedure and available for the entirety of the procedure. ?? Narrative 01/29/2012 4:42 PM CDT January 29, 2012 Procedure: 1. Transhepatic chemoembolization of right hepatic artery branch supplying HCC 2. Transhepatic chemoembolization of middle hepatic artery branch supplying HCC 3. Transhepatic chemoembolization of middle hepatic artery branch supplying HCC 4. 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 Operators: ??Mitchell Zimemrman MD, Attending; Nahed Tomlinson MD, Resident; and Janet Garcia RN Consent obtained from patient Anesthesia type: General endotracheal intubation Contrast: ??50 cc Visipaque 320 Fluoroscopy time: 17 minutes TECHNIQUE: Patient position: ??supine Arterial access: ??Under ultrasound guidance, 21 gauge needle, singlewall puncture right common femoral artery Access sheath: ??5 Fr vascular sheath Catheters: ??4 [place] glide Cobra catheter Catheter positions and pre-embolization angiographic imagin [place] Cobra catheter celiac artery; 4 [place] Cobra catheter/common hepatic artery; 4 [place] Cobra catheter right posterior hepatic artery/4 [place] Cobra catheter/middle hepatic artery/4 [place] Cobra catheter right anterior hepatic artery/4 [place] Cobra catheter left gastric artery/4 [place] Cobra catheter left hepatic artery Embolization catheter positions: ??Medial branch posterior right hepatic artery, middle hepatic artery, lower branch anterior right posterior hepatic artery, left hepatic artery Catheter positions and post-embolization angiographic imaging: Medial branch posterior right hepatic artery, middle hepatic artery, lower branch anterior right posterior hepatic artery, left hepatic artery Embolization materials: 50 mg Epirubicin, 4cc 75-150 LCBeads, 10 cc of 40 to 100 micron Embospheres; the dose was administered into the following arteries: Medial branch posterior right hepatic artery, middle hepatic artery, lower branch anterior right posterior hepatic artery, left hepatic artery Groin Hemostasis: AngioSeal closure device Procedure description: The risks, benefits and alternatives to the procedure were discussed with the patient mother and father and informed written and verbal consent was obtained. The patient was brought into the angio suite and placed supine on the angio table. His right groin was prepped prepped and draped with surgical technique. 1% lidocaine was used for skin anesthesia. Under ultrasound guidance, a ??21-gauge singlewall needle was used to access the right common femoral artery. The micropuncture set was removed over an 035 Bentson wire over which a 5 [place]ian vascular sheath with a sidearm flush was attached. Using a 4 [place] Cobra catheter and 035 Glidewire, the celiac artery was catheterized. Digital subtraction angiography was performed demonstrating the left hepatic artery replaced to the left gastric artery. Next, the 4 [place] Cobra catheter was used to catheterize the common hepatic artery demonstrated tumor blush supplied by branches of the middle hepatic, right anterior and right posterior sector hepatic arteries. Next, the 4 [place] Cobra catheter was advanced into the talent scout right hepatic artery and digital subtraction angiography followed by embolization was performed. Next, the microcatheter was advanced into the middle branch right hepatic artery and digital subtraction angiography followed by embolization was performed. Next, the catheter was advanced into the lower branch of the anterior right hepatic artery and digital subtraction angiography followed by embolization was performed. Next, completion angiography was performed in the common hepatic artery demonstrating antegrade flow to the rest of the right liver and stasis in the embolized arterial branches. The 4 [place] Cobra catheter was used to catheterize the left gastric artery and its subtraction angiography was performed. Next, the 4 [place] Cobra catheter was advanced into the left hepatic artery and digital subtraction angiography was performed demonstrating arterial supply to hypervascular tumor. From this position, chemoembolization was performed to stasis. Next, completion digital subtraction angiography was performed in the left gastric artery demonstrating antegrade flow to the stomach and absent flow in the embolized in left hepatic artery. All wires and catheters were removed and a right common femoral artery angiogram was performed through the sheath demonstrating appropriate puncture above the bifurcation for use of vascular closure devise. Angioseal vascular closure device was used for arterial closure and sterile dressing was applied. The patient tolerated the procedure well and was transferred to recovery in stable condition. Complications: None immediate. FINDINGS: Hepatic arterial anatomy: ?Left hepatic artery replaced to the left gastric artery. Portal vein: ?Not visualized on venous and delayed images. The portal vein is widely patent on most recent CT. Masses: ? Hypervascular masses supplied by left hepatic artery, right hepatic artery and middle hepatic artery Postembolization findings: ?Stasis of contrast in the embolized hypervascular mass. Procedure Note Mitchell Zimmerman MD - 04/01/2018 January 29, 2012 Procedure: 1. Transhepatic chemoembolization of right hepatic artery branch supplyingHCC 2. Transhepatic chemoembolization of middle hepatic artery branchsupplying HCC 3. Transhepatic chemoembolization of middle hepatic artery branchsupplying HCC 4. Transhepatic embolization of left hepatic artery supplying HCC History: 11-year-old girl with fibrolamellar HCC for tumor embolization tothe stage tumor for possible transplant. Operators: Mitchell Zimmerman MD, Attending; Nahed Tomlinson MD, Resident;and Janet Garcia RN Consent obtained from patient Anesthesia type: General endotracheal intubation Contrast: 50 cc Visipaque 320 Fluoroscopy time: 17 minutes TECHNIQUE: Patient position: supine Arterial access: Under ultrasound guidance, 21 gauge needle, singlewallpuncture right common femoral artery Access sheath: 5 Fr vascular sheath Catheters: 4 [place] glide Cobra catheter Catheter positions and pre-embolization angiographic imagin FrenchCobra catheter celiac artery; 4 [place] Cobra catheter/common hepaticartery; 4 [place] Cobra catheter right posterior hepatic artery/4 FrenchCobra catheter/middle hepatic artery/4 [place] Cobra catheter right anterior hepatic artery/4 [place] Cobracatheter left gastric artery/4 [place] Cobra catheter left hepatic artery Embolization catheter positions: Medial branch posterior right hepaticartery, middle hepatic artery, lower branch anterior right posteriorhepatic artery, left hepatic artery Catheter positions and post-embolization angiographic imaging: Medialbranch posterior right hepatic artery, middle hepatic artery, lower branchanterior right posterior hepatic artery, left hepatic artery Embolization materials: 50 mg Epirubicin, 4cc 75-150 LCBeads, 10 cc of 40to 100 micron Embospheres; the dose was administered into the followingarteries: Medial branch posterior right hepatic artery, middle hepaticartery, lower branch anterior right posterior hepatic artery, left hepatic artery Groin Hemostasis: AngioSeal closure device Procedure description: The risks, benefits and alternatives to the procedure were discussed withthe patient mother and father and informed written and verbal consent wasobtained. The patient was brought into the angio suite and placed supineon the angio table. His right groin was prepped prepped and draped with surgical technique. 1% lidocainewas used for skin anesthesia. Under ultrasound guidance, a 21-gaugesinglewall needle was used to access the right common femoral artery. Themicropuncture set was removed over an 035 Bentson wire over which a 5 [place]ian vascular sheath with a sidearmflush was attached. Using a 4 [place] Cobra catheter and 035 Glidewire, the celiac artery wascatheterized. Digital subtraction angiography was performed demonstratingthe left hepatic artery replaced to the left gastric artery. Next, the 4 [place] Cobra catheter was used to catheterize the commonhepatic artery demonstrated tumor blush supplied by branches of the middlehepatic, right anterior and right posterior sector hepatic arteries. Next, the 4 [place] Cobra catheter was advanced into the talent scout righthepatic artery and digital subtraction angiography followed byembolization was performed. Next, the microcatheter was advanced into the middle branch right hepaticartery and digital subtraction angiography followed by embolization wasperformed. Next, the catheter was advanced into the lower branch of the anteriorright hepatic artery and digital subtraction angiography followed byembolization was performed. Next, completion angiography was performed in the common hepatic arterydemonstrating antegrade flow to the rest of the right liver and stasis inthe embolized arterial branches. The 4 [place] Cobra catheter was used to catheterize the left gastricartery and its subtraction angiography was performed. Next, the 4 [place] Cobra catheter was advanced into the left hepaticartery and digital subtraction angiography was performed demonstratingarterial supply to hypervascular tumor. From this position, chemoembolization was performed to stasis. Next, completion digital subtraction angiography was performed in the leftgastric artery demonstrating antegrade flow to the stomach and absent flowin the embolized in left hepatic artery. All wires and catheters were removed and a right common femoral arteryangiogram was performed through the sheath demonstrating appropriatepuncture above the bifurcation for use of vascular closure devise.Angioseal vascular closure device was used for arterial closure and sterile dressing was applied. The patient tolerated the procedure well and was transferred to recoveryin stable condition. Complications: None immediate. FINDINGS: Hepatic arterial anatomy: Left hepatic artery replaced to the leftgastric artery. Portal vein: Not visualized on venous and delayedimages. The portal vein is widely patent on most recent CT. Masses: Hypervascular masses supplied byleft hepatic artery, right hepatic artery and middle hepatic artery Postembolization findings: Stasis of contrast in the embolizedhypervascular mass. IMPRESSION IMPRESSION: Successful transarterial middle hepatic artery, lower branch rightanterior sector hepatic artery, medial branch persistent the right hepaticartery, left hepatic artery chemoembolization of hypervascular mass asdescribed in detail above. Followup liver protocol MRI is recommended in 6 weeks to assess treatmentresponse. Dr Mitchell Lopez. Attending, attest that I was present for the keyportions of the procedure and available for the entirety of the procedure. Mitchell Zimmerman MD IR ORDERABLES * IR CAROTID CEREBRAL ANGIOGRAM (01/29/2012 1:38 PM CDT) Anatomical Region Laterality Modality Head Other Impressions 01/29/2012 4:42 PM CDT IMPRESSION: ?? Successful transarterial middle hepatic artery, lower branch right anterior sector hepatic artery, medial branch persistent the right hepatic artery, left hepatic artery chemoembolization of hypervascular mass as described in detail above. Followup liver protocol MRI is recommended in 6 weeks to assess treatment response. Dr Mitchell Lopez. Attending, attest that I was present for the merino portions of the procedure and available for the entirety of the procedure. ?? Narrative 01/29/2012 4:42 PM CDT January 29, 2012 Procedure: 1. Transhepatic chemoembolization of right hepatic artery branch supplying HCC 2. Transhepatic chemoembolization of middle hepatic artery branch supplying HCC 3. Transhepatic chemoembolization of middle hepatic artery branch supplying HCC 4. 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 Operators: ??Mitchell Zimmerman MD, Attending; Nahed Tomlinson MD, Resident; and Janet Garcia RN Consent obtained from patient Anesthesia type: General endotracheal intubation Contrast: ??50 cc Visipaque 320 Fluoroscopy time: 17 minutes TECHNIQUE: Patient position: ??supine Arterial access: ??Under ultrasound guidance, 21 gauge needle, singlewall puncture right common femoral artery Access sheath: ??5 Fr vascular sheath Catheters: ??4 [place] glide Cobra catheter Catheter positions and pre-embolization angiographic imagin [place] Cobra catheter celiac artery; 4 [place] Cobra catheter/common hepatic artery; 4 [place] Cobra catheter right posterior hepatic artery/4 [place] Cobra catheter/middle hepatic artery/4 [place] Cobra catheter right anterior hepatic artery/4 [place] Cobra catheter left gastric artery/4 [place] Cobra catheter left hepatic artery Embolization catheter positions: ??Medial branch posterior right hepatic artery, middle hepatic artery, lower branch anterior right posterior hepatic artery, left hepatic artery Catheter positions and post-embolization angiographic imaging: Medial branch posterior right hepatic artery, middle hepatic artery, lower branch anterior right posterior hepatic artery, left hepatic artery Embolization materials: 50 mg Epirubicin, 4cc 75-150 LCBeads, 10 cc of 40 to 100 micron Embospheres; the dose was administered into the following arteries: Medial branch posterior right hepatic artery, middle hepatic artery, lower branch anterior right posterior hepatic artery, left hepatic artery Groin Hemostasis: AngioSeal closure device Procedure description: The risks, benefits and alternatives to the procedure were discussed with the patient mother and father and informed written and verbal consent was obtained. The patient was brought into the angio suite and placed supine on the angio table. His right groin was prepped prepped and draped with surgical technique. 1% lidocaine was used for skin anesthesia. Under ultrasound guidance, a ??21-gauge singlewall needle was used to access the right common femoral artery. The micropuncture set was removed over an 035 Bentson wire over which a 5 [place]ian vascular sheath with a sidearm flush was attached. Using a 4 [place] Cobra catheter and 035 Glidewire, the celiac artery was catheterized. Digital subtraction angiography was performed demonstrating the left hepatic artery replaced to the left gastric artery. Next, the 4 [place] Cobra catheter was used to catheterize the common hepatic artery demonstrated tumor blush supplied by branches of the middle hepatic, right anterior and right posterior sector hepatic arteries. Next, the 4 [place] Cobra catheter was advanced into the talent scout right hepatic artery and digital subtraction angiography followed by embolization was performed. Next, the microcatheter was advanced into the middle branch right hepatic artery and digital subtraction angiography followed by embolization was performed. Next, the catheter was advanced into the lower branch of the anterior right hepatic artery and digital subtraction angiography followed by embolization was performed. Next, completion angiography was performed in the common hepatic artery demonstrating antegrade flow to the rest of the right liver and stasis in the embolized arterial branches. The 4 [place] Cobra catheter was used to catheterize the left gastric artery and its subtraction angiography was performed. Next, the 4 [place] Cobra catheter was advanced into the left hepatic artery and digital subtraction angiography was performed demonstrating arterial supply to hypervascular tumor. From this position, chemoembolization was performed to stasis. Next, completion digital subtraction angiography was performed in the left gastric artery demonstrating antegrade flow to the stomach and absent flow in the embolized in left hepatic artery. All wires and catheters were removed and a right common femoral artery angiogram was performed through the sheath demonstrating appropriate puncture above the bifurcation for use of vascular closure devise. Angioseal vascular closure device was used for arterial closure and sterile dressing was applied. The patient tolerated the procedure well and was transferred to recovery in stable condition. Complications: None immediate. FINDINGS: Hepatic arterial anatomy: ?Left hepatic artery replaced to the left gastric artery. Portal vein: ?Not visualized on venous and delayed images. The portal vein is widely patent on most recent CT. Masses: ? Hypervascular masses supplied by left hepatic artery, right hepatic artery and middle hepatic artery Postembolization findings: ?Stasis of contrast in the embolized hypervascular mass. Procedure Note Mitchell Zimmerman MD - 07/18/2017 January 29, 2012 Procedure: 1. Transhepatic chemoembolization of right hepatic artery branch supplyingHCC 2. Transhepatic chemoembolization of middle hepatic artery branchsupplying HCC 3. Transhepatic chemoembolization of middle hepatic artery branchsupplying HCC 4. Transhepatic embolization of left hepatic artery supplying HCC History: 11-year-old girl with fibrolamellar HCC for tumor embolization tothe stage tumor for possible transplant. Operators: Mitchell Zimmerman MD, Attending; Nahed Tomlinson MD, Resident;and Janet Garcia RN Consent obtained from patient Anesthesia type: General endotracheal intubation Contrast: 50 cc Visipaque 320 Fluoroscopy time: 17 minutes TECHNIQUE: Patient position: supine Arterial access: Under ultrasound guidance, 21 gauge needle, singlewallpuncture right common femoral artery Access sheath: 5 Fr vascular sheath Catheters: 4 [place] glide Cobra catheter Catheter positions and pre-embolization angiographic imagin FrenchCobra catheter celiac artery; 4 [place] Cobra catheter/common hepaticartery; 4 [place] Cobra catheter right posterior hepatic artery/4 FrenchCobra catheter/middle hepatic artery/4 [place] Cobra catheter right anterior hepatic artery/4 [place]ian Cobracatheter left gastric artery/4 [place] Cobra catheter left hepatic artery Embolization catheter positions: Medial branch posterior right hepaticartery, middle hepatic artery, lower branch anterior right posteriorhepatic artery, left hepatic artery Catheter positions and post-embolization angiographic imaging: Medialbranch posterior right hepatic artery, middle hepatic artery, lower branchanterior right posterior hepatic artery, left hepatic artery Embolization materials: 50 mg Epirubicin, 4cc 75-150 LCBeads, 10 cc of 40to 100 micron Embospheres; the dose was administered into the followingarteries: Medial branch posterior right hepatic artery, middle hepaticartery, lower branch anterior right posterior hepatic artery, left hepatic artery Groin Hemostasis: AngioSeal closure device Procedure description: The risks, benefits and alternatives to the procedure were discussed withthe patient mother and father and informed written and verbal consent wasobtained. The patient was brought into the angio suite and placed supineon the angio table. His right groin was prepped prepped and draped with surgical technique. 1% lidocainewas used for skin anesthesia. Under ultrasound guidance, a 21-gaugesinglewall needle was used to access the right common femoral artery. Themicropuncture set was removed over an 035 Bentson wire over which a 5 [place]ian vascular sheath with a sidearmflush was attached. Using a 4 [place] Cobra catheter and 035 Glidewire, the celiac artery wascatheterized. Digital subtraction angiography was performed demonstratingthe left hepatic artery replaced to the left gastric artery. Next, the 4 [place] Cobra catheter was used to catheterize the commonhepatic artery demonstrated tumor blush supplied by branches of the middlehepatic, right anterior and right posterior sector hepatic arteries. Next, the 4 [place] Cobra catheter was advanced into the talent scout righthepatic artery and digital subtraction angiography followed byembolization was performed. Next, the microcatheter was advanced into the middle branch right hepaticartery and digital subtraction angiography followed by embolization wasperformed. Next, the catheter was advanced into the lower branch of the anteriorright hepatic artery and digital subtraction angiography followed byembolization was performed. Next, completion angiography was performed in the common hepatic arterydemonstrating antegrade flow to the rest of the right liver and stasis inthe embolized arterial branches. The 4 [place] Cobra catheter was used to catheterize the left gastricartery and its subtraction angiography was performed. Next, the 4 [place] Cobra catheter was advanced into the left hepaticartery and digital subtraction angiography was performed demonstratingarterial supply to hypervascular tumor. From this position, chemoembolization was performed to stasis. Next, completion digital subtraction angiography was performed in the leftgastric artery demonstrating antegrade flow to the stomach and absent flowin the embolized in left hepatic artery. All wires and catheters were removed and a right common femoral arteryangiogram was performed through the sheath demonstrating appropriatepuncture above the bifurcation for use of vascular closure devise.Angioseal vascular closure device was used for arterial closure and sterile dressing was applied. The patient tolerated the procedure well and was transferred to recoveryin stable condition. Complications: None immediate. FINDINGS: Hepatic arterial anatomy: Left hepatic artery replaced to the leftgastric artery. Portal vein: Not visualized on venous and delayedimages. The portal vein is widely patent on most recent CT. Masses: Hypervascular masses supplied byleft hepatic artery, right hepatic artery and middle hepatic artery Postembolization findings: Stasis of contrast in the embolizedhypervascular mass. IMPRESSION IMPRESSION: Successful transarterial middle hepatic artery, lower branch rightanterior sector hepatic artery, medial branch persistent the right hepaticartery, left hepatic artery chemoembolization of hypervascular mass asdescribed in detail above. Followup liver protocol MRI is recommended in 6 weeks to assess treatmentresponse. Dr Mitchell Lopez. Attending, attest that I was present for the keyportions of the procedure and available for the entirety of the procedure. Mitchell Zimmerman MD IR ORDERABLES * IR EMBOLIZATION TRANSCATH THPY (01/29/2012 1:38 PM CDT) Only the most recent of2 resultswithin the time period is included. Anatomical Region Laterality Modality Other Impressions 01/29/2012 4:42 PM CDT IMPRESSION: ?? Successful transarterial middle hepatic artery, lower branch right anterior sector hepatic artery, medial branch persistent the right hepatic artery, left hepatic artery chemoembolization of hypervascular mass as described in detail above. Followup liver protocol MRI is recommended in 6 weeks to assess treatment response. Dr Mitchell Lopez. Attending, attest that I was present for the merino portions of the procedure and available for the entirety of the procedure. ?? Narrative 01/29/2012 4:42 PM CDT January 29, 2012 Procedure: 1. Transhepatic chemoembolization of right hepatic artery branch supplying HCC 2. Transhepatic chemoembolization of middle hepatic artery branch supplying HCC 3. Transhepatic chemoembolization of middle hepatic artery branch supplying HCC 4. 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 Operators: ??Mitchell Zimmerman MD, Attending; Nahed Tomlinson MD, Resident; and Janet Garcia RN Consent obtained from patient Anesthesia type: General endotracheal intubation Contrast: ??50 cc Visipaque 320 Fluoroscopy time: 17 minutes TECHNIQUE: Patient position: ??supine Arterial access: ??Under ultrasound guidance, 21 gauge needle, singlewall puncture right common femoral artery Access sheath: ??5 Fr vascular sheath Catheters: ??4 [place] glide Cobra catheter Catheter positions and pre-embolization angiographic imagin [place]ian Cobra catheter celiac artery; 4 [place] Cobra catheter/common hepatic artery; 4 [place] Cobra catheter right posterior hepatic artery/4 [place] Cobra catheter/middle hepatic artery/4 [place] Cobra catheter right anterior hepatic artery/4 [place] Cobra catheter left gastric artery/4 [place] Cobra catheter left hepatic artery Embolization catheter positions: ??Medial branch posterior right hepatic artery, middle hepatic artery, lower branch anterior right posterior hepatic artery, left hepatic artery Catheter positions and post-embolization angiographic imaging: Medial branch posterior right hepatic artery, middle hepatic artery, lower branch anterior right posterior hepatic artery, left hepatic artery Embolization materials: 50 mg Epirubicin, 4cc 75-150 LCBeads, 10 cc of 40 to 100 micron Embospheres; the dose was administered into the following arteries: Medial branch posterior right hepatic artery, middle hepatic artery, lower branch anterior right posterior hepatic artery, left hepatic artery Groin Hemostasis: AngioSeal closure device Procedure description: The risks, benefits and alternatives to the procedure were discussed with the patient mother and father and informed written and verbal consent was obtained. The patient was brought into the angio suite and placed supine on the angio table. His right groin was prepped prepped and draped with surgical technique. 1% lidocaine was used for skin anesthesia. Under ultrasound guidance, a ??21-gauge singlewall needle was used to access the right common femoral artery. The micropuncture set was removed over an 035 Bentson wire over which a 5 [place]ian vascular sheath with a sidearm flush was attached. Using a 4 [place] Cobra catheter and 035 Glidewire, the celiac artery was catheterized. Digital subtraction angiography was performed demonstrating the left hepatic artery replaced to the left gastric artery. Next, the 4 [place] Cobra catheter was used to catheterize the common hepatic artery demonstrated tumor blush supplied by branches of the middle hepatic, right anterior and right posterior sector hepatic arteries. Next, the 4 [place] Cobra catheter was advanced into the talent scout right hepatic artery and digital subtraction angiography followed by embolization was performed. Next, the microcatheter was advanced into the middle branch right hepatic artery and digital subtraction angiography followed by embolization was performed. Next, the catheter was advanced into the lower branch of the anterior right hepatic artery and digital subtraction angiography followed by embolization was performed. Next, completion angiography was performed in the common hepatic artery demonstrating antegrade flow to the rest of the right liver and stasis in the embolized arterial branches. The 4 [place] Cobra catheter was used to catheterize the left gastric artery and its subtraction angiography was performed. Next, the 4 [place] Cobra catheter was advanced into the left hepatic artery and digital subtraction angiography was performed demonstrating arterial supply to hypervascular tumor. From this position, chemoembolization was performed to stasis. Next, completion digital subtraction angiography was performed in the left gastric artery demonstrating antegrade flow to the stomach and absent flow in the embolized in left hepatic artery. All wires and catheters were removed and a right common femoral artery angiogram was performed through the sheath demonstrating appropriate puncture above the bifurcation for use of vascular closure devise. Angioseal vascular closure device was used for arterial closure and sterile dressing was applied. The patient tolerated the procedure well and was transferred to recovery in stable condition. Complications: None immediate. FINDINGS: Hepatic arterial anatomy: ?Left hepatic artery replaced to the left gastric artery. Portal vein: ?Not visualized on venous and delayed images. The portal vein is widely patent on most recent CT. Masses: ? Hypervascular masses supplied by left hepatic artery, right hepatic artery and middle hepatic artery Postembolization findings: ?Stasis of contrast in the embolized hypervascular mass. Procedure Note Mitchell Zimmerman MD - 07/18/2017 January 29, 2012 Procedure: 1. Transhepatic chemoembolization of right hepatic artery branch supplyingHCC 2. Transhepatic chemoembolization of middle hepatic artery branchsupplying HCC 3. Transhepatic chemoembolization of middle hepatic artery branchsupplying HCC 4. Transhepatic embolization of left hepatic artery supplying HCC History: 11-year-old girl with fibrolamellar HCC for tumor embolization tothe stage tumor for possible transplant. Operators: Mitchell Zimmerman MD, Attending; Nahed Tomlinson MD, Resident;and Janet Garcia RN Consent obtained from patient Anesthesia type: General endotracheal intubation Contrast: 50 cc Visipaque 320 Fluoroscopy time: 17 minutes TECHNIQUE: Patient position: supine Arterial access: Under ultrasound guidance, 21 gauge needle, singlewallpuncture right common femoral artery Access sheath: 5 Fr vascular sheath Catheters: 4 [place] glide Cobra catheter Catheter positions and pre-embolization angiographic imagin FrenchCobra catheter celiac artery; 4 [place] Cobra catheter/common hepaticartery; 4 [place] Cobra catheter right posterior hepatic artery/4 FrenchCobra catheter/middle hepatic artery/4 [place] Cobra catheter right anterior hepatic artery/4 [place] Cobracatheter left gastric artery/4 [place] Cobra catheter left hepatic artery Embolization catheter positions: Medial branch posterior right hepaticartery, middle hepatic artery, lower branch anterior right posteriorhepatic artery, left hepatic artery Catheter positions and post-embolization angiographic imaging: Medialbranch posterior right hepatic artery, middle hepatic artery, lower branchanterior right posterior hepatic artery, left hepatic artery Embolization materials: 50 mg Epirubicin, 4cc 75-150 LCBeads, 10 cc of 40to 100 micron Embospheres; the dose was administered into the followingarteries: Medial branch posterior right hepatic artery, middle hepaticartery, lower branch anterior right posterior hepatic artery, left hepatic artery Groin Hemostasis: AngioSeal closure device Procedure description: The risks, benefits and alternatives to the procedure were discussed withthe patient mother and father and informed written and verbal consent wasobtained. The patient was brought into the angio suite and placed supineon the angio table. His right groin was prepped prepped and draped with surgical technique. 1% lidocainewas used for skin anesthesia. Under ultrasound guidance, a 21-gaugesinglewall needle was used to access the right common femoral artery. Themicropuncture set was removed over an 035 Bentson wire over which a 5 [place]ian vascular sheath with a sidearmflush was attached. Using a 4 [place] Cobra catheter and 035 Glidewire, the celiac artery wascatheterized. Digital subtraction angiography was performed demonstratingthe left hepatic artery replaced to the left gastric artery. Next, the 4 [place] Cobra catheter was used to catheterize the commonhepatic artery demonstrated tumor blush supplied by branches of the middlehepatic, right anterior and right posterior sector hepatic arteries. Next, the 4 [place] Cobra catheter was advanced into the talent scout righthepatic artery and digital subtraction angiography followed byembolization was performed. Next, the microcatheter was advanced into the middle branch right hepaticartery and digital subtraction angiography followed by embolization wasperformed. Next, the catheter was advanced into the lower branch of the anteriorright hepatic artery and digital subtraction angiography followed byembolization was performed. Next, completion angiography was performed in the common hepatic arterydemonstrating antegrade flow to the rest of the right liver and stasis inthe embolized arterial branches. The 4 [place] Cobra catheter was used to catheterize the left gastricartery and its subtraction angiography was performed. Next, the 4 [place] Cobra catheter was advanced into the left hepaticartery and digital subtraction angiography was performed demonstratingarterial supply to hypervascular tumor. From this position, chemoembolization was performed to stasis. Next, completion digital subtraction angiography was performed in the leftgastric artery demonstrating antegrade flow to the stomach and absent flowin the embolized in left hepatic artery. All wires and catheters were removed and a right common femoral arteryangiogram was performed through the sheath demonstrating appropriatepuncture above the bifurcation for use of vascular closure devise.Angioseal vascular closure device was used for arterial closure and sterile dressing was applied. The patient tolerated the procedure well and was transferred to recoveryin stable condition. Complications: None immediate. FINDINGS: Hepatic arterial anatomy: Left hepatic artery replaced to the leftgastric artery. Portal vein: Not visualized on venous and delayedimages. The portal vein is widely patent on most recent CT. Masses: Hypervascular masses supplied byleft hepatic artery, right hepatic artery and middle hepatic artery Postembolization findings: Stasis of contrast in the embolizedhypervascular mass. IMPRESSION IMPRESSION: Successful transarterial middle hepatic artery, lower branch rightanterior sector hepatic artery, medial branch persistent the right hepaticartery, left hepatic artery chemoembolization of hypervascular mass asdescribed in detail above. Followup liver protocol MRI is recommended in 6 weeks to assess treatmentresponse. I, Dr Mitchell Zimmerman. Attending, attest that I was present for the keyportions of the procedure and available for the entirety of the procedure. Mitchell Zimmerman MD IR ORDERABLES * BLOOD TYPE ABO+ RH PANEL (01/29/2012 9:01 AM CDT) Only the most recent of2 resultswithin the time period is included. ABO O 01/29/2012 10:06 AM CDT [facility] Rh Type POS 01/29/2012 10:06 AM CDT [facility] Miscellaneous samples (specimen) BLOOD SPECIMEN / Unknown 01/29/2012 9:01 AM CDT 01/29/2012 9:13 AM CDT Jose Mac MD LAB - BLOOD BA NK ORDERABLES [facility] * ANTIBODY SCREEN (01/29/2012 9:01 AM CDT) Antibody Screen NEG 2 10:21 AM CDT [facility] Miscellaneous samples (specimen) BLOOD SPECIMEN / Unknown 01/29/2012 9:01 AM CDT 01/29/2012 9:13 AM CDT Jose Mac MD LAB - BLOOD BA NK ORDERABLES [facility] * VITAMIN B12 BINDING CAPACITY (01/11/2012 4:45 PM CDT) Vitamin B12 Binding Capacity 1,661 800 - 2,600 pg/mL 01/13/2012 10:54 AM CDT [facility] Comment: INTERPRETIVE INFORMATION: Vitamin B12 Binding Capacity This assay measures the unsaturated binding capacity of serum for Vitamin B12. Blood specimen (specimen) BLOOD SPECIMEN / Unknown 01/11/2012 4:45 PM CDT 01/11/2012 5:00 PM CDT Marcel Jordan MD LAB - CHEMISTRY O RDERAFANNY Performing Organization Address City/[facility] Co de Phone Number [facility] [address] [place] [address] * CEA BLOOD (01/11/2012 4:45 PM CDT) Only the most recent of2 resultswithin the time period is included. CEA <0.50 <5.01 (ng/ml) 01/12/2012 11:24 AM CDT [facility] Comment Results repeated to verify. 01/12/2012 11:24 AM CDT [facility] Blood specimen (specimen) BLOOD SPECIMEN / Unknown 01/11/2012 4:45 PM CDT 01/11/2012 5:00 PM CDT Marcel Jordan MD LAB - CHEMISTRY O RDERABLES Performing Organization Address [facility] Co de Phone Number [facility] [address] * ECHO CONSULT - PEDIATRIC (01/07/2012 1:23 PM CDT) 01/07/2012 1:23 PM CDT Narrative [facility] - 01/07/2012 2:20 PM CDT , Transthoracic Echocardiogram 2D, M-mode, Doppler, and Color Doppler Name: LILI AGUILA MR #: [id number] Study date: 01/07/2012 Age: 11 years : 2000 Gender: Female Ht: 63.4 in / 161 cm Wt: 136.4 lb / 62 kg BSA: 1.65 m?? HR: BP: / age: LEIGH: Maternal age: MARKET RISK SPECIALIST: ??MTimmy Heath MD PEDIATRIC ECHO SUPERVISORY INVESTIGATIVE SPECIALIST: ??Raquel Veronica RDCS History: Pre liver transplant Signs/symptoms include murmur. Procedure: The procedure was performed in the echo lab. Anatomic relationships: Visceral situs: normal. Left sided cardiac apex (levocardia). Normal atrial situs (atrial situs solitus). Concordant atrioventricular alignment. Ventricular d-loop. Normal infundibular anatomy. Concordant ventriculoarterial connection. Normally related great vessels. Systemic veins: SVC: The superior vena cava and left innominate vein appeared of normal caliber, with normal flow. IVC: The inferior vena cava was normal in size and course. IVC Doppler: The flow pattern was normal. Pulmonary veins: The pulmonary veins drained normally to the left atrium. Doppler: Doppler flow pattern was normal in the pulmonary vein(s). Right atrium: Size was normal. Left atrium: Size was normal. Atrial septum: This study does not exclude the possibility of a patent foramen ovale. limited views of atrial septum. Tricuspid valve: The valve structure was normal. Doppler: The transtricuspid velocity was within the normal range. There was no evidence for tricuspid stenosis. There was mild regurgitation. Mitral valve: Valve structure was normal. There is no mitral valve prolapse. Doppler: The transmitral velocity was within the normal range. There was no evidence for stenosis. There was no regurgitation. Right ventricle: The cavity size was normal. Wall thickness was normal. Systolic function was normal. RV outflow tract: There was no obstruction. Left ventricle: The cavity size was normal. Wall thickness was normal. Systolic function was normal. There were no regional wall motion abnormalities. Doppler: Left ventricular diastolic function parameters were normal. LV outflow tract: There was no outflow obstruction. Ventricular septum: Thickness was normal. The septum was intact. Pulmonic valve: Leaflets exhibited normal thickness and normal cuspal separation. Doppler: The transpulmonic velocity was within the normal range. There was trivial regurgitation. Aortic valve: The valve was trileaflet. Leaflets exhibited normal thickness and normal cuspal separation. Doppler: Transaortic velocity was within the normal range. There was no stenosis. There was no regurgitation. Pulmonary artery: The main pulmonary artery was normal, with normal-sized, confluent proximal branch pulmonary arteries. Aorta: There was a normal-sized aortic arch with normal brachiocephalic branching. The root was normal in size. The ascending aorta size was normal. Coronary arteries: The size and course of the left main, proximal left anterior descending, and proximal right coronary arteries were normal. Right coronary artery: Flow was normal. Left main coronary artery: Flow was normal. Left anterior descending: Flow was normal. Extracardiac shunting: No ductal shunt was detected by Doppler. Pericardium: A possible, trivial pericardial effusion was identified anterior to the heart. There was no evidence of hemodynamic compromise. The pericardium was normal in appearance. Impressions: - ??Diagnoses: Normal intracardiac anatomy. - ??Atrial septum/shunt: This study does not exclude the possibility of a patent foramen ovale. limited views of atrial septum. - ??Pericardium, pleura: A possible, trivial pericardial effusion was identified anterior to the heart. There was no evidence of hemodynamic compromise. Prepared and signed by Yassine Heath MD Signed 01/07/2012 14:19:46 DOPPLER MEASUREMENTS Tricuspid valve ?? (Reference) Regurg peak david ?? 220 cm/s RV-RA peak gradient ?? 19 mmHg Legend: Predicted normals (shown in italics) are given as mean ?? 2 SD Asterisk (*) kumar values outside the specified normal range. System measurement tables MM %FS: 35.1 % Ao Diam: 25.3 mm EDV(Teich): 100.7 ml EF(Teich): 64.4 % ESV(Teich): 35.8 ml IVSd: 6 mm IVSs: 8.9 mm LA Diam: 27.8 mm LA/Ao: 1.1 LVIDd: 46.7 mm LVIDs: 30.3 mm LVPWd: 3 mm LVPWs: 9.9 mm LVd Mass: 59.5 g LVd Mass (ASE): 59.1 g LVs Mass: 81 g LVs Mass (ASE): 76.3 g SV(Teich): 64.9 ml Procedure Note 01/07/2012 , Transthoracic Echocardiogram 2D, M-mode, Doppler, and Color Doppler Name: LILI AGUILA MR #: [id number] Study date: 01/07/2012 Age: 11 years : 2000 Gender: Female Ht: 63.4 in / 161 cm Wt: 136.4 lb / 62 kg BSA: 1.65 m?? HR: BP: / age: LEIGH: Maternal age: MARKET RISK SPECIALIST: Yassine Heath MD PEDIATRIC ECHO SUPERVISORY INVESTIGATIVE SPECIALIST: Raquel Veronica RDCS History: Pre liver transplant Signs/symptoms include murmur. Procedure: The procedure was performed in the echo lab. Anatomic relationships: Visceral situs: normal. Left sided cardiac apex (levocardia). Normal atrial situs (atrial situs solitus). Concordant atrioventricular alignment. Ventricular d-loop. Normal infundibular anatomy. Concordant ventriculoarterial connection. Normally related great vessels. Systemic veins: SVC: The superior vena cava and left innominate vein appeared of normal caliber, with normal flow. IVC: The inferior vena cava was normal in size and course. IVC Doppler: The flow pattern was normal. Pulmonary veins: The pulmonary veins drained normally to the left atrium. Doppler: Doppler flow pattern was normal in the pulmonary vein(s). Right atrium: Size was normal. Left atrium: Size was normal. Atrial septum: This study does not exclude the possibility of a patent foramen ovale. limited views of atrial septum. Tricuspid valve: The valve structure was normal. Doppler: The transtricuspid velocity was within the normal range. There was no evidence for tricuspid stenosis. There was mild regurgitation. Mitral valve: Valve structure was normal. There is no mitral valve prolapse. Doppler: The transmitral velocity was within the normal range. There was no evidence for stenosis. There was no regurgitation. Right ventricle: The cavity size was normal. Wall thickness was normal. Systolic function was normal. RV outflow tract: There was no obstruction. Left ventricle: The cavity size was normal. Wall thickness was normal. Systolic function was normal. There were no regional wall motion abnormalities. Doppler: Left ventricular diastolic function parameters were normal. LV outflow tract: There was no outflow obstruction. Ventricular septum: Thickness was normal. The septum was intact. Pulmonic valve: Leaflets exhibited normal thickness and normal cuspal separation. Doppler: The transpulmonic velocity was within the normal range. There was trivial regurgitation. Aortic valve: The valve was trileaflet. Leaflets exhibited normal thickness and normal cuspal separation. Doppler: Transaortic velocity was within the normal range. There was no stenosis. There was no regurgitation. Pulmonary artery: The main pulmonary artery was normal, with normal-sized, confluent proximal branch pulmonary arteries. Aorta: There was a normal-sized aortic arch with normal brachiocephalic branching. The root was normal in size. The ascending aorta size was normal. Coronary arteries: The size and course of the left main, proximal left anterior descending, and proximal right coronary arteries were normal. Right coronary artery: Flow was normal. Left main coronary artery: Flow was normal. Left anterior descending: Flow was normal. Extracardiac shunting: No ductal shunt was detected by Doppler. Pericardium: A possible, trivial pericardial effusion was identified anterior to the heart. There was no evidence of hemodynamic compromise. The pericardium was normal in appearance. Impressions: - Diagnoses: Normal intracardiac anatomy. - Atrial septum/shunt: This study does not exclude the possibility of a patent foramen ovale. limited views of atrial septum. - Pericardium, pleura: A possible, trivial pericardial effusion was identified anterior to the heart. There was no evidence of hemodynamic compromise. Prepared and signed by Yassine Heath MD Signed 01/07/2012 14:19:46 DOPPLER MEASUREMENTS Tricuspid valve (Reference) Regurg peak david 220 cm/s RV-RA peak gradient 19 mmHg Legend: Predicted normals (shown in italics) are given as mean ?? 2 SD Asterisk (*) kumar values outside the specified normal range. System measurement tables MM %FS: 35.1 % Ao Diam: 25.3 mm EDV(Teich): 100.7 ml EF(Teich): 64.4 % ESV(Teich): 35.8 ml IVSd: 6 mm IVSs: 8.9 mm LA Diam: 27.8 mm LA/Ao: 1.1 LVIDd: 46.7 mm LVIDs: 30.3 mm LVPWd: 3 mm LVPWs: 9.9 mm LVd Mass: 59.5 g LVd Mass (ASE): 59.1 g LVs Mass: 81 g LVs Mass (ASE): 76.3 g SV(Teich): 64.9 ml Biju Walker MD ECHO ORDERABLES [facility] [address] [place] [address] * (ABNORMAL) HERPES SIMPLEX 1+2 ANTIBODY IGG/IGM PANEL (01/07/2012 7:01 AM CDT) Herpes Simplex Virus 1/2 Antibody IgG 0.69 <=0.89 IV 01/09/2012 9:00 PM [facility] [employer] Comment: INTERPRETIVE INFORMATION: HSV 1/2 COMBINED Ab SCREEN, IgG ??0.89 IV or less.........Negative-No significant level ?of detectable HSV IgG antibody. ??0.90-1.09 IV............Equivocal-Questionable presence ?of IgG antibodies. Repeat testing ?in 10-14 days may be helpful. ??1.10 IV or greater......Positive-IgG antibody to HSV ?detected which may indicate a ?current or past HSV infection. The best evidence for current infection is a significant change on two appropriately timed specimens, where both tests are done in the same laboratory at the same time. Herpes Simplex Virus 1/2 Antibody IgM 1.44(H) <=0.89 IV 01/09/2012 9:00 PM [facility] [employer] Comment: INTERPRETIVE INFORMATION: HSV Type 1/2 Combined Ab, IgM ??0.89 IV or Less .......... Negative-No significant level ? of detectable HSV IgM ? antibody. ??0.90 - 1.09 IV ........... Equivocal-Questionable ? presence of IgM antibodies. ? Repeat testing in 10-14 days ? may be helpful. ??1.10 IV or Greater ....... Positive-IgM antibody to HSV ? detected, which may indicate a ? current or recent infection. ? However, low levels of IgM ? antibodies may occasionally ? persist for more than 12 ? months post-infection. Blood specimen (specimen) BLOOD SPECIMEN / Unknown 01/07/2012 7:01 AM CDT 01/07/2012 7:32 AM CDT Biju Walker MD LAB - CHEMISTRY [facility] Organization Address City/State/[facility] Phone Number [facility] [address] [place] [address] * VARICELLA ZOSTER ANTIBODY IGG (01/07/2012 7:01 AM CDT) Varicella zoster Virus Antibody IgG 192.9 IV 01/09/2012 6:43 PM CDT [facility] [employer] Comment: INTERPRETIVE INFORMATION: VZV Ab, IgG ??134 IV or less ....... Negative - No significant level ? of detectable IgG varicella- ? zoster antibody. ??135 -165 IV .......... Equivocal - Repeat testing in ? 10-14 days may be helpful. ??166 IV or greater .... Positive - IgG antibody to ? varicella-zoster detected, which ? may indicate a current or ? past varicella-zoster ? infection. The best evidence for current infection is a significant change on two appropriately timed specimens, where both tests are done in the same laboratory at the same time. Blood specimen (specimen) BLOOD SPECIMEN / Unknown 01/07/2012 7:01 AM CDT 01/07/2012 7:33 AM CDT Biju Walker MD LAB - CHEMISTRY [place] Performing Organization Address City/[facility] Co de Phone Number [facility] [address] [place] [address] * HEPATITIS A IGM ANTIBODY (01/07/2012 7:01 AM CDT) HAV Antibody IgM Non Reactive Non Reactive 01/08/2012 11:31 AM CDT [facility] Blood specimen (specimen) BLOOD SPECIMEN / Unknown 01/07/2012 7:01 AM CDT 01/07/2012 7:22 AM CDT Biju Walker MD LAB - CHEMISTRY [place] [facility] [address] [facility] [place] [address] * HEPATITIS A ANTIBODY (01/07/2012 7:01 AM CDT) Hepatitis A Virus Antibody Total Positive 01/08/2012 11:48 AM CDT [facility] [employer] Blood specimen (specimen) BLOOD SPECIMEN / Unknown 01/07/2012 7:01 AM CDT 01/07/2012 7:32 AM CDT Biju Walker MD LAB - CHEMISTRY [facility] Organization Address City/State/ZIP Co de Phone Number [facility] [address] [place] [address] * HOMOVANILLIC ACID URINE RANDOM (01/01/2012 3:07 PM CDT) Collection Time Hours 24 hr 01/06/2012 6:35 AM T [facility] Volume 24 Hour Urine 1,900 mL 01/06/2012 6:35 AM T [facility] Homovanillic Acid 24 Hour Urine Not Applicable mg/d 01/06/2012 6:35 AM T [facility] Creatinine Urine 45 mg/dL 01/06/20 12 6:35 AM T [facility] Creatinine 24 Hour Urine 855 300 - 1,300 mg/d 01/06/2012 6:35 AM T [facility] [employer] Interpretation Homovanillic Acid Urine Normal 01/06/2012 6:35 AM T [facility] Comment: INTERPRETIVE INFORMATION: Homovanillic Acid (HVA), Urine Homovanillic acid (HVA) results are expressed as a ratio to creatinine excretion (mg/g cr). HVA mass per day (mg/d) is not reported on specimens from patients younger than 18 years of age, for random specimens, urine collection periods other than 24 hours, or for urine volumes less than 400 mL/d. No reference interval is available for results reported in units of mg/L. Homovanillic Acid Urine 1.7 mg/L 01/06/2012 6:35 AM T [facility] HVA Urine mg/g creat 4 0 - 15 mg/g 01/06/2012 6:35 AM T [facility] [employer] Comment: REFERENCE INTERVAL: HVA, Urine mg/g RECONSTRUCTIVE SURGEON Access complete set of age- and/or gender-specific reference intervals for this test in the [facility] Test Directory ([employer]). Urine specimen (specimen) URINE / Unknown 01/01/2012 3:07 PM CDT 01/01/2012 4:10 PM CDT Daisy Jernigan MD LAB - URINE NUCLEAR PHYSICS PROFESSOR RY ORDERABLES [facility] [address] [place] [address] * VMA URINE TIMED (01/01/2012 3:06 PM CDT) VMA Urine mg/g Creat 3 0 - 9 mg/g 01/06/2012 6:53 AM T [facility] [employer] Comment: REFERENCE INTERVAL: VMA, Urine mg/g RECONSTRUCTIVE SURGEON Access complete set of age- and/or gender-specific reference intervals for this test in the [facility] Test Directory ([employer]). VMA mg/L Urine 1.4 mg/L 01/06/2012 6:53 AM [facility] [employer] Collection Time Hours Random hr 01/06/2012 6:53 AM [facility] [employer] Volume 24 Hour Urine 10 mL 01/06/2012 6:53 AM T [facility] VMA mg/24 Hour Urine Not Applicable mg/d 01/06/2012 6:53 AM [facility] [employer] Creatinine Urine 46 mg/dL 01/06/20 12 6:53 AM [facility] [employer] Creatinine 24 Hour Urine Not Applicable 300 - 1300 mg/d 01/06/2012 6:53 AM [facility] [employer] Interp VMA Acid Urine Normal 01/06/2012 6:53 AM [facility] [employer] Comment: INTERPRETIVE INFORMATION: Vanillylmandelic Acid (VMA), Urine Vanillylmandelic acid (VMA) results are expressed as a ratio to creatinine excretion (mg/g cr). VMA mass per day (mg/d) is not reported on specimens from patients younger than 18 years of age, for random specimens, urine collection periods other than 24 hours, or for urine volumes less than 400 mL/d. No reference interval is available for results reported in units of mg/L. Urine specimen (specimen) TIMED URINE SPECIMEN / Unknown 01/01/2012 3:06 PM CDT 01/01/2012 4:10 PM CDT Daisy Jernigan MD LAB - URINE NUCLEAR PHYSICS PROFESSOR RY ORDERABLES [facility] [address] [place] [address] * (ABNORMAL) CATECHOLAMINES URINE FRACTIONATED (01/01/2012 3:06 PM CDT) Dopamine 24 Hour Urine Not Applicable ug/d 01/05/2012 5:44 PM CDT [facility] [employer] Comment: REFERENCE INTERVAL: Dopamine, Urine - ug/d Access complete set of age- and/or gender-specific reference intervals for this test in the [facility] Test Directory ([employer]). Collection Time Hours 24 hr 01/05/2012 5:44 PM T [facility] Volume 24 Hour Urine 1,900 mL 01/05/2012 5:44 PM T [facility] Epinephrine Urine ug/L 1 ug/L 01/05/2012 5:44 PM CDT [facility] Norepinephrine Urine 6 ug/L 01/05/2012 5:44 PM CDT [facility] Dopamine Urine 137 ug/L 01/05/2012 5:44 PM CDT [facility] Epinephrine Urine ug/g RECONSTRUCTIVE SURGEON 2(L) 3 - 58 ug/g RECONSTRUCTIVE SURGEON 01/05/2012 5:44 PM T [facility] Epinephrine 24 Hour Urine Not Applicable ug/d 01/05/2012 5:44 PM T [facility] [employer] Comment: REFERENCE INTERVAL: Epinephrine, Urine - ug/d Access complete set of age- and/or gender-specific reference intervals for this test in the [facility] Test Directory ([employer]). Norepinephrine Urine ug/g RECONSTRUCTIVE SURGEON 13 4 - 105 ug/g RECONSTRUCTIVE SURGEON 01/05/2012 5:44 PM CDT [facility] Norepinephrine 24 Hour Urine Not Applicable ug/d 01/05/2012 5:44 PM T [facility] [employer] Comment: REFERENCE INTERVAL: Norepinephrine, Urine - ug/d Access complete set of age- and/or gender-specific reference intervals for this test in the [facility] Test Directory ([employer]). Dopamine RECONSTRUCTIVE SURGEON Urine 298 120 - 450 ug/g RECONSTRUCTIVE SURGEON 01/05/2012 5:44 PM CDT [facility] Interpretation Catecholamines Urine See Note 01/05/2012 5:44 PM T [facility] [employer] Comment: TEST INFORMATION: Catecholamines Panel, Urine Free The optimal specimen for this testing is a 24-hour urine collection. Mass per day calculations are not reported for patients younger than 18 years of age and for the following specimen types: a random collection, a collection with duration of less than 20 hours, a collection with duration of greater than 28 hours, or a collection with total volume less than 400 mL. Ratios to creatinine may be useful for these evaluations. Smaller increases in catecholamine concentrations (less than two times the upper limit) usually are the result of physiological stimuli, drugs, or improper specimen collection. Significant elevation of one or more catecholamines (three or more times the upper reference limit) is associated with an increased probability of a neuroendocrine tumor. Access complete set of age- and/or gender-specific reference intervals for this test in the [facility] Test Directory ([employer]). Creatinine Urine 46 mg/dL 01/05/20 12 5:44 PM CDT [employer] Creatinine 24 Hour Urine 874 300 - 1,300 mg/d 01/05/2012 5:44 PM CDT [employer] Urine specimen (specimen) TIMED URINE SPECIMEN / Unknown 01/01/2012 3:06 PM CDT 01/01/2012 4:10 PM CDT Daisy Jernigan MD LAB - URINE NUCLEAR PHYSICS PROFESSOR RY ORDERABLES Performing Organization Address City/State/[facility] Co de Phone Number [employer] [address] [place] [address] * SURGICAL LOCALIZATION (01/01/2012 10:14 AM CDT) Anatomical Region Laterality Modality Ultrasound 01/01/2012 12:3 5 PM CDT Impressions 01/01/2012 12:35 PM CDT Intraoperative ultrasound as above. Narrative 01/01/2012 12:35 PM CDT Intraoperative ultrasound guidance for liver biopsy performed January 01, 2012. History: Liver mass. Ultrasound images of the known mass in the medial segment of the left lobe of the liver were obtained. Subsequently, Dr. Burt, the attending surgeon, held ultrasound probe while Dr. mares, the surgical fellow, performed two percutaneous liver biopsies. Procedure Note Lynsey Sherwood MD - 01/01/2012 Intraoperative ultrasound guidance for liver biopsy performed January 01, 2012. History: Liver mass. Ultrasound images of the known mass in the medial segment of the left lobe of the liver were obtained. Subsequently, Dr. Burt, the attending surgeon, held ultrasound probe while Dr. mares, the surgical fellow, performed two percutaneous liver biopsies. IMPRESSION Intraoperative ultrasound as above. Fan Stein MD US ORDERABLES * CYTOGENETICS CANCER PANEL (01/01/2012 12:00 AM CDT) Only the most recent of2 resultswithin the time period is included. Pathologist [facility] Indication for Study Omentum Lesion With Perihepatic LAD/Liver Mass 01/15/2012 2:04 PM CDT [facility] Results Cytogenetics The direct harvest of this lesion failed to yield any dividing cells. 01/15/2012 2:04 PM CDT [facility] Interpretation It is not necessary to proceed to an array-CGH per Dr. Saenz on this specimen. The liver lesion tissue was found normal ([id number]; arr(1-22,X)x2 ??Normal Female) by array-CGH. 01/15/2012 2:04 PM CDT [facility] Other (qualifier value) TUMOR TISSUE SPECIMEN / Unknown 01/01/2012 01/04/2012 10:29 AM CDT Charanjit Burt MD LAB - PATHOLOGY/CYT OLOGY ORDERABLES [facility] [facility] [address] [place] [address] * FECAL LEUKOCYTES (12/31/2011 6:54 PM CDT) WBC Feces/HPF No Fecal WBC's seen (none) 12/31/2011 8:05 PM CDT [facility] Stool specimen (specimen) STOOL SPECIMEN / Unknown 12/31/2011 6:54 PM CDT 12/31/2011 7:07 PM CDT Daisy Jernigan MD LAB - BODY FLUID OR DERABLES [facility] [address] [place] [address] * MRI ABDOMEN WITH AND WITHOUT CONTRAST (12/30/2011 4:10 PM CDT) Anatomical Region Laterality Modality Abdomen Magnetic Resonan ce 12/31/2011 4:58 PM CDT Impressions 12/31/2011 4:58 PM CDT 8.4 x 5.9 x 5.1 cm mass in the medial segment of the left lobe of the liver. There is associated portal and periceliac lymphadenopathy. The mass has a nondescript appearance. The differential diagnosis must include fibrolamellar hepatocellular carcinoma, solitary fibrous tumor of the liver, or an atypical FNH. Other entities such as cholangiocarcinoma cannot be excluded. 4.8 x 2.4 cm omental abnormality in the right abdomen. Given the patient's history of acute onset of pain in this region omental infarction must be considered first in the differential diagnosis. Given the presence of a large liver lesion as well as free fluid in the peritoneal cavity the possibility of omental metastases cannot be excluded. Left ovarian follicular cyst. Narrative 12/31/2011 4:58 PM CDT MRI of the liver with and without gadolinium performed December 30, 2011. History: 11-year-old with liver mass noted on CT scan. Axial and coronal 2-D fiesta and single shot at spin echo, axial T1 FSPGR, 3-D dual echo, diffusion weighted, and T1 fat-suppressed FSPGR imaging were performed. 14 cc of Gadolinium was administered and axial while the multiphase post gadolinium T1 fat-suppressed imaging was performed as well. Comparison is made with the CT scan of December 30, 2011. There is a mass present in the medial segment of the left lobe of the liver. The mass abuts the falciform ligament along its left lateral aspect and displaces the middle hepatic vein along its right lateral aspect. The mass measures approximately 8.4 cm in length x 5.9 cm in AP dimension x 5.1 cm in transverse dimension. On the pre gadolinium T1-weighted images the mass appears to be demarcated by a pseudocapsule and is of subtle heterogeneous signal but overall nearly intense or of decreased signal relative to the to surrounding liver parenchyma. On the T2 weighted sequence most of the mass is of equal or lesser signal than the surrounding liver parenchyma except for a small central focus of somewhat poorly defined increased T2 signal measuring 2.8 x 2.2 cm in size. This area of increased T2 signal peripherally enhances with gadolinium at which time a small vessel is noted to traverse same. Small foci of decreased signal are seen on all imaging sequences consistent with known intralesional calcifications. Unfortunately, scanning was not performed during the arterial phase due to technical difficulties. On the post gadolinium images we did obtain the peripheral rim of the mass enhances similar to neighboring ??normal liver while there are areas of persistent low signal centrally. There is no evidence of fat within this lesion. No definite diffusion restriction is seen. The mass displaces and narrows the left portal vein but does not appear to invade same. There is some bile duct dilatation the left lobe of the liver particularly in the lateral segment. There is inward retraction of the surface of the liver superficial to this mass. No other hepatic lesions are seen. Soft tissue attenuation material is seen in the bhumi hepatis as well as about the celiac axis. This is consistent with lymphadenopathy. The spleen is of normal size and uniform in signal without focal parenchymal abnormality. A small accessory spleen is present in the splenic hilum. The gallbladder is extrinsically deformed by the inferolateral aspect of this mass but is intrinsically normal. Similar the pancreas is normal in appearance. There is no evidence of adrenal mass. The kidneys are functioning bilaterally without evidence of hydronephrosis or focal cortical abnormality. There is a trace amount of pericardial fluid. An ill-defined area of serpiginous linear increased T2 weighted structures is seen in the right lower quadrant anterior to the right colon. These linear structures enhance with gadolinium. This finding is consistent with the previously documented abnormality the greater omentum which has migrated into the subhepatic space since the prior CT. No definite enhancing mass is seen in this region suggesting omental infarct. However, it is difficult to exclude omental metastasis. The aorta and inferior vena cava are unremarkable. A simple cyst is again seen in the left ovary consistent with a follicular cyst. Pelvic ascites is again identified in the cul-de-sac. Uterus and bladder are normal in appearance. The visualized bony structures are unremarkable. Procedure Note Lynsey Sherwood MD - 12/31/2011 MRI of the liver with and without gadolinium performed December 30, 2011. History: 11-year-old with liver mass noted on CT scan. Axial and coronal 2-D fiesta and single shot at spin echo, axial T1 FSPGR, 3-D dual echo, diffusion weighted, and T1 fat-suppressed FSPGR imaging were performed. 14 cc of Gadolinium was administered and axial while the multiphase post gadolinium T1 fat-suppressed imaging was performed as well. Comparison is made with the CT scan of December 30, 2011. There is a mass present in the medial segment of the left lobe of the liver. The mass abuts the falciform ligament along its left lateral aspect and displaces the middle hepatic vein along its right lateral aspect. The mass measures approximately 8.4 cm in length x 5.9 cm in AP dimension x 5.1 cm in transverse dimension. On the pre gadolinium T1-weighted images the mass appears to be demarcated by a pseudocapsule and is of subtle heterogeneous signal but overall nearly intense or of decreased signal relative to the to surrounding liver parenchyma. On the T2 weighted sequence most of the mass is of equal or lesser signal than the surrounding liver parenchyma except for a small central focus of somewhat poorly defined increased T2 signal measuring 2.8 x 2.2 cm in size. This area of increased T2 signal peripherally enhances with gadolinium at which time a small vessel is noted to traverse same. Small foci of decreased signal are seen on all imaging sequences consistent with known intralesional calcifications. Unfortunately, scanning was not performed during the arterial phase due to technical difficulties. On the post gadolinium images we did obtain the peripheral rim of the mass enhances similar to neighboring normal liver while there are areas of persistent low signal centrally. There is no evidence of fat within this lesion. No definite diffusion restriction is seen. The mass displaces and narrows the left portal vein but does not appear to invade same. There is some bile duct dilatation the left lobe of the liver particularly in the lateral segment. There is inward retraction of the surface of the liver superficial to this mass. No other hepatic lesions are seen. Soft tissue attenuation material is seen in the bhumi hepatis as well as about the celiac axis. This is consistent with lymphadenopathy. The spleen is of normal size and uniform in signal without focal parenchymal abnormality. A small accessory spleen is present in the splenic hilum. The gallbladder is extrinsically deformed by the inferolateral aspect of this mass but is intrinsically normal. Similar the pancreas is normal in appearance. There is no evidence of adrenal mass. The kidneys are functioning bilaterally without evidence of hydronephrosis or focal cortical abnormality. There is a trace amount of pericardial fluid. An ill-defined area of serpiginous linear increased T2 weighted structures is seen in the right lower quadrant anterior to the right colon. These linear structures enhance with gadolinium. This finding is consistent with the previously documented abnormality the greater omentum which has migrated into the subhepatic space since the prior CT. No definite enhancing mass is seen in this region suggesting omental infarct. However, it is difficult to exclude omental metastasis. The aorta and inferior vena cava are unremarkable. A simple cyst is again seen in the left ovary consistent with a follicular cyst. Pelvic ascites is again identified in the cul-de-sac. Uterus and bladder are normal in appearance. The visualized bony structures are unremarkable. IMPRESSION 8.4 x 5.9 x 5.1 cm mass in the medial segment of the left lobe of the liver. There is associated portal and periceliac lymphadenopathy. The mass has a nondescript appearance. The differential diagnosis must include fibrolamellar hepatocellular carcinoma, solitary fibrous tumor of the liver, or an atypical FNH. Other entities such as cholangiocarcinoma cannot be excluded. 4.8 x 2.4 cm omental abnormality in the right abdomen. Given the patient's history of acute onset of pain in this region omental infarction must be considered first in the differential diagnosis. Given the presence of a large liver lesion as well as free fluid in the peritoneal cavity the possibility of omental metastases cannot be excluded. Left ovarian follicular cyst. Daisy Jernigan MD MR ORDERABLES * US PELVIS W/TRANSVAG AND DOPPLER (12/30/2011 11:09 AM CDT) Anatomical Region Laterality Modality Pelvis Ultrasound 12/30/2011 12:4 4 PM CDT Impressions 12/30/2011 12:44 PM CDT Left ovarian cyst. Complex pelvic ascites. Normal pelvic Doppler. Narrative 12/30/2011 12:44 PM CDT Pelvic sonogram- transabdominal and transvaginal Right ovary: 2.5 x 1.9 x 1.6 cm Left ovary: 3.0 x 1.7 x 1.5 cm Uterus: ??A 6.1 x 2.7 x 3.0 cm A moderate amount of fluid is present in the cul-de-sac. The fluid contains debris. The uterus and right ovary are normal. A 2.1 x 1.1 x 1.4 cm cyst is present on the left ovary. No masses are present in the adnexa. Doppler interrogation documents arterial flow in each ovary. Procedure Note Alexandrea Yuen MD - 12/30/2011 Pelvic sonogram- transabdominal and transvaginal Right ovary: 2.5 x 1.9 x 1.6 cm Left ovary: 3.0 x 1.7 x 1.5 cm Uterus: A 6.1 x 2.7 x 3.0 cm A moderate amount of fluid is present in the cul-de-sac. The fluid contains debris. The uterus and right ovary are normal. A 2.1 x 1.1 x 1.4 cm cyst is present on the left ovary. No masses are present in the adnexa. Doppler interrogation documents arterial flow in each ovary. IMPRESSION Left ovarian cyst. Complex pelvic ascites. Normal pelvic Doppler. Daisy Jernigan MD ORDERABLES * (ABNORMAL) HEPATITIS B PANEL (12/30/2011 4:38 AM CDT) Pathologist [facility] HBsAb REACTIVE(A) Non Reactive 01/01/2012 9:50 AM CDT [facility] HBsAg Non Reactive Non Reactive 01/01/2012 9:50 AM CDT [facility] HBc Antibody IgM Non Reactive Non Reactive 01/01/2012 9:50 AM CDT [facility] Blood specimen (specimen) BLOOD SPECIMEN / Unknown 12/30/2011 4:38 AM CDT 12/30/2011 5:17 AM CDT Isaac Lewis MD LAB - CHEMISTRY [facility] Organization Address City/State/ZIP Co de Phone Number [facility] [address] [place] [address] * HEPATITIS C ANTIBODY (12/30/2011 4:38 AM CDT) Pathologist [facility] HCV Antibody Screen Non Reactive Non Reactive 01/01/2012 9:50 AM CDT [facility] Blood specimen (specimen) BLOOD SPECIMEN / Unknown 12/30/2011 4:38 AM CDT 12/30/2011 5:17 AM CDT Narrative [facility] - 01/01/2012 9:50 AM CDT Nonreactive - Antibodies to HCV were not detected, result does not exclude early acute HCV infection. Isaac Lewis MD LAB - CHEMISTRY [facility] [place] [address] * HCG BETA BLOOD TUMOR MARKER (12/30/2011 4:38 AM CDT) Beta-hCG Tumor Marker <1 0 - 5 IU/L 12/31/2011 5:00 AM CDT [facility] [employer] Comment: INTERPRETIVE INFORMATION: Beta hCG, Serum Quantitation Tumor Marker Human chorionic gonadotropin (hCG) is a valuable aid in the management of patients with trophoblastic tumors, nonseminomatous testicular tumors and seminomas when used in conjunction with information available from the clinical evaluation and other diagnostic procedures. Increased HCG concentrations have also been observed in melanoma, carcinomas of the breast, gastrointestinal tract, lung, and ovaries, and in benign conditions, including cirrhosis, duodenal ulcer, and inflammatory bowel disease. This result cannot be interpreted as absolute evidence of the presence or absence of malignant disease. This result is not interpretable as a tumor marker in females. The combination of the specific monoclonal antibodies used in the [facility] Beta HCG electrochemiluminescent immunoassay recognize the holo-hormone, nicked forms of hCG, the beta-core fragment, and the free beta-subunit. Although this assay is FDA cleared for use in the detection of , it is not labeled for use as a tumor marker. Access complete set of age- and/or gender-specific reference intervals for this test in the [facility] Test Directory ([employer]). Blood specimen (specimen) BLOOD SPECIMEN / Unknown 12/30/2011 4:38 AM CDT 12/30/2011 5:17 AM CDT Isaac Lewis MD LAB - CHEMISTRY [facility] [employer] [address] [place] [address] * CT OUTSIDE CONSULTATION (12/30/2011 1:12 AM CDT) Anatomical Region Laterality Modality Computed Tomogra phy 12/30/2011 12:5 1 PM CDT Impressions 12/30/2011 6:53 PM CDT 1. ??6.4 x 6.1 x 7.5 cm heterogeneous partially calcified left hepatic lobe mass with rounded low attenuation areas which may represent a central scar. Differential diagnosis must include are old male with hepatocellular carcinoma. Without arterial phase imaging it is difficult to definitively exclude FNH. The differential diagnosis would include a solitary fibrous tumor of the liver. Evaluation with contrast-enhanced MRI is recommended to further limit the differential. Percutaneous biopsy will likely be warranted. 2. Bhumi hepatis and gastrohepatic lymphadenopathy. These may represent metastatic disease if primary liver mass is malignant. Otherwise, infectious or inflammatory adenopathy related to the liver process. 3. Area of fat stranding and adjacent peritoneal enhancement in the right lower quadrant. Appearance is most compatible with an acute omental infarct. This likely represents the source of patient's pain. However, in the setting of possible malignancy, omental metastasis cannot be definitively excluded. 4. Slightly higher density moderate size free pelvic fluid. This may be hemorrhagic fluid related to the acute omental infarct or possibly malignant peritoneal subsequent pelvic ultrasound demonstrated normal appearing ovaries. 5. ??2.4 cm left ovarian cyst, most likely a follicular cyst. 6. Bifid right renal collecting system. Dictated by: Bryant Acosta MD Narrative 12/30/2011 6:[address] Abdomen And Pelvis 12/30/2011 History: Right-sided abdominal pain Technique: The exam was performed at the outside hospital. Axial CT images with coronal and sagittal reconstruction of the abdomen and pelvis are provided for interpretation. Findings: No ??prior studies are available for comparison. The lung bases are clear. A heterogeneous, mass in the medial segment of the left lobe of the liver. Overall, the mass measures approximately 6.4 x 6.1 x 7.5 cm. On the portal venous phase images submitted the mass is heterogeneous in attenuation with much of its substance isointense to the surrounding liver. It demonstrating scattered areas of internal calcifications with rounded internal areas of low attenuation. ??A definite surrounding fibrous capsule is not visualized. The mass does distorts and bulge the inferior liver contour. The mass displaces the middle hepatic vein laterally. There is associated mild intrahepatic biliary ductal dilatation. The common bile duct however is not dilated. There is a small amounts of perihepatic free fluid and subcapsular fluid are present. The main portal vein and its branches are patent. The hepatic veins are patent. There is a normal conventional ??hepatic arterial anatomy. The aorta and IVC and their major branches are patent. Multiple enlarged lymph nodes are seen at the bhumi hepatis with a few small lymph nodes in the gastrohepatic ligament. These individual nodes measure up to 1.4 x 1.4 cm. No retroperitoneal nodes are seen. There is an ovoid area of abnormal greater omentum in the right lower quadrant measuring 3.5 cm in transverse dimension x 2 cm in AP dimension. Linear strands are are seen in this abnormal omentum consistent with probable enhancing vessels appear. No definite masses appreciated. There is mild enhancement of the neighboring peritoneal surface. Note is made of ??thinning of the vessels supplying this segment of peritoneum (as demonstrated on image 29 of series 601b, coronal images). However, no joy thrombosis is visualized. A few prominent pericecal lymph nodes are seen measuring up to 0.6 x 1.2 cm. ??There is however an air-filled appendix without evidence of wall thickening or appendicolith. ??There are no dilated bowel loops. No focal areas of bowel wall thickening is seen. There is no free intraperitoneal air. The gallbladder, pancreas, spleen, and adrenal glands are normal. A bifid right renal collecting system is noted. ?? The left kidney is unremarkable. There is however no joy hydronephrosis or hydroureter. A 2.2 x 2.0 x 2.4 cm cyst without significant wall thickening or enhancement involves the left ovary. The right ovary is unremarkable. The uterus appears within normal limits as well. The urinary bladder is unremarkable. There is moderate amount of free pelvic fluid measuring up to 27 HU in density. ?? The osseous structures are intact without evidence of focal lesions. Procedure Note Lynsey Sherwood MD - 12/30/2011 CT Abdomen And Pelvis 12/30/2011 History: Right-sided abdominal pain Technique: The exam was performed at the outside hospital. Axial CT images with coronal and sagittal reconstruction of the abdomen and pelvis are provided for interpretation. Findings: No prior studies are available for comparison. The lung bases are clear. A heterogeneous, mass in the medial segment of the left lobe of the liver. Overall, the mass measures approximately 6.4 x 6.1 x 7.5 cm. On the portal venous phase images submitted the mass is heterogeneous in attenuation with much of its substance isointense to the surrounding liver. It demonstrating scattered areas of internal calcifications with rounded internal areas of low attenuation. A definite surrounding fibrous capsule is not visualized. The mass does distorts and bulge the inferior liver contour. The mass displaces the middle hepatic vein laterally. There is associated mild intrahepatic biliary ductal dilatation. The common bile duct however is not dilated. There is a small amounts of perihepatic free fluid and subcapsular fluid are present. The main portal vein and its branches are patent. The hepatic veins are patent. There is a normal conventional hepatic arterial anatomy. The aorta and IVC and their major branches are patent. Multiple enlarged lymph nodes are seen at the bhumi hepatis with a few small lymph nodes in the gastrohepatic ligament. These individual nodes measure up to 1.4 x 1.4 cm. No retroperitoneal nodes are seen. There is an ovoid area of abnormal greater omentum in the right lower quadrant measuring 3.5 cm in transverse dimension x 2 cm in AP dimension. Linear strands are are seen in this abnormal omentum consistent with probable enhancing vessels appear. No definite masses appreciated. There is mild enhancement of the neighboring peritoneal surface. Note is made of thinning of the vessels supplying this segment of peritoneum (as demonstrated on image 29 of series 601b, coronal images). However, no joy thrombosis is visualized. A few prominent pericecal lymph nodes are seen measuring up to 0.6 x 1.2 cm. There is however an air-filled appendix without evidence of wall thickening or appendicolith. There are no dilated bowel loops. No focal areas of bowel wall thickening is seen. There is no free intraperitoneal air. The gallbladder, pancreas, spleen, and adrenal glands are normal. A bifid right renal collecting system is noted. The left kidney is unremarkable. There is however no joy hydronephrosis or hydroureter. A 2.2 x 2.0 x 2.4 cm cyst without significant wall thickening or enhancement involves the left ovary. The right ovary is unremarkable. The uterus appears within normal limits as well. The urinary bladder is unremarkable. There is moderate amount of free pelvic fluid measuring up to 27 HU in density. The osseous structures are intact without evidence of focal lesions. IMPRESSION 1. 6.4 x 6.1 x 7.5 cm heterogeneous partially calcified left hepatic lobe mass with rounded low attenuation areas which may represent a central scar. Differential diagnosis must include are old male with hepatocellular carcinoma. Without arterial phase imaging it is difficult to definitively exclude FNH. The differential diagnosis would include a solitary fibrous tumor of the liver. Evaluation with contrast-enhanced MRI is recommended to further limit the differential. Percutaneous biopsy will likely be warranted. 2. Bhumi hepatis and gastrohepatic lymphadenopathy. These may represent metastatic disease if primary liver mass is malignant. Otherwise, infectious or inflammatory adenopathy related to the liver process. 3. Area of fat stranding and adjacent peritoneal enhancement in the right lower quadrant. Appearance is most compatible with an acute omental infarct. This likely represents the source of patient's pain. However, in the setting of possible malignancy, omental metastasis cannot be definitively excluded. 4. Slightly higher density moderate size free pelvic fluid. This may be hemorrhagic fluid related to the acute omental infarct or possibly malignant peritoneal subsequent pelvic ultrasound demonstrated normal appearing ovaries. 5. 2.4 cm left ovarian cyst, most likely a follicular cyst. 6. Bifid right renal collecting system. Dictated by: Bryant Acosta MD Rito Smith DO CT ORDERABLES Care Teams Clam Bed Worker Relationship Specialty Start Date End Date Josiah Palacios MD [address] [place] [id number] PCP - General Family Medicine 01/19/23 Stephanie Lozano, MARINA Registered Nurse 12/16/16 Rei Ann, PharmD Pharmacist 01/12/17
--- OUTSIDE RECORDS SUMMARY | 2024-05-19 10:30 | XMS_ITS | Clinical Summary ---
Author Organization [facility] Address [address] [place] [address] Care Team Providers Care Advice Clerk Name Role Phone Stephanie Lozano RN Unavailable Rei Smith PharmD Unavailable Unavai Josiah Russell MD Primary Care Provider [phone] Source Comments [facility],non-owned Affiliates and Associated Physician Practices is amultiple site organization consisting of ambulatory clinics and hospital sitesin [place], [place], [place] and [place]. This disclosure is being madepursuant to the Care Everywhere program and may not contain all information available regarding this patient. Last updated 18.[facility] Keepstream Allergies Active Allergy Reactions Criticality Noted Date Comments Hydromorphone Psychiatric Medium 02/08/2012 Terror halucinations Morphine Itching Medium 01/19/2012 Medications * Be aware that medications may not be up to date on this document. Alwaysverify current medications with the patient. Medication Sig Dispensed Refills Start Date End Date Status Calcium Carb-Cholecalci ferol (CALCIUM 1000 + D PO)Indications: High-risk in second trimester (HCC) Take by mouth once daily Active Ferrous Sulfate Dried (High Potency Iron) 65 MG TABS Take 65 mg by mouth once daily Active ursodiol (Jv Forte) 500 MG tabletIndicatio ns:Cholestatic Pruritus Take 1 (one) tablet by mouth 3 times daily with meals Reasons: Cholestatic Pruritus 90 tablet 1 3 Active ibuprofen (Motrin) 600 MG tablet Take 1 (one) tablet by mouth every 6 hours as needed for Pain 50 tablet 1 3 Active plus iron (Natatab) 29-1 MG tablet Take 1 (one) tablet by mouth once daily 100 tablet 1 3 Active magnesium oxide (Mag-Ox) 400 MG tablet Take 1 (one) tablet by mouth once daily Active thiamine (Vitamin B-1) 100 MG tablet Take 1 (one) tablet by mouth once daily Active Wegovy 1.7 MG/0.75ML penIndications: Morbid obesity (HCC) INJECT 1.7MG SUBCUTANEOUSLY ONCE WEEKLY 4 mL 5 Active tacrolimus (Prograf) 1 MG capsule 4 (four) capsules every morning AND 3 (three) capsules every evening. 5 Active tacrolimus (Prograf) 1 MG capsule TAKE 3 CAPSULES TWO TIMES DAILY FOR LIVER TRANSPLANT 540 capsule 3 4 05/02/19 25 Discontinued Wegovy 1.7 MG/0.75ML penIndications: Morbid obesity (HCC) INJECT 1 SYRINGE SUBCUTANEOUSLY ONCE A WEEK 4 mL 4 04/20/19 25 Discontinued tacrolimus (Prograf) 1 MG capsule 4 (four) capsules every morning AND 3 (three) capsules every evening. TAKE 3 CAPSULES TWO TIMES DAILY FOR LIVER TRANSPLANT. 5 05/02/19 25 Discontinued Active Problems Patient Care Coordination No te Formatting of this note migh t be different from the original. 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 Instructed to have tacrolimus levels drawn in 2 days and follow up at transplant clinic as instructed. Please see med rec's for list of meds on discharge. Resolved Problems Problem Noted Date Diagnosed Date [...] (07/29/2017 1:32 PM CDT): Assessment: Assessment: Margoth Prather is an 17 year old female with [...] (07/28/2017 2:07 PM CDT): Assessment: Assessment: Margoth Prather is an 17 year old female with [...] - End tidal CO2 monitoring while on TATTOOER ?? Neuro - Fentanyl TATTOOER - Basal 10mcg/hr, TATTOOER dose 15mcg - Scheduled Toradol 30mg q6h [...] miralax daily for bowel regimen while on TATTOOER - Continue prednisone FEN: - Continue IV fluids at 100ml/hr, wean when tolerating PO - Vit D daily - Mag Oxide BID Assessment & Plan (07/27/2017 5:39 PM CDT): Assessment: Assessment: Margoth Prather is an 17 year old female with [...] - End tidal CO2 monitoring while on TATTOOER Neuro: significant diffuse myalgias throughout that are improved on TATTOOER and Toradol - Fentanyl TATTOOER - Basal 10mcg/hr, TATTOOER dose 15mcg - Scheduled Toradol 30mg q6h [...] miralax daily for bowel regimen while on TATTOOER - Continue prednisone Assessment & Plan (07/28/2017 [...] - End tidal CO2 monitoring while on TATTOOER Neuro: significant diffuse myalgias throughout, received fentanyl in ED. - Fentanyl TATTOOER - 1x dose of Toradol - Melatonin [...] miralax daily for bowel regimen while on TATTOOER - Continue prednisone Assessment & Plan (07/27/2017 [...] some element of liver transplant rejection. Saw Senior [employer] Net Developer in November--not recommended to have another follow up until . Never had repeat liver ultrasound performed in October. Itching complaint could be a side effect of Tacrolimus which is now being used TID. Also with bleeding gums. [facility] Recommendations: 1. checking coags & bile acids 2. Should have liver ultrasound performed and report forwarded to Senior [employer] Net Developer. 3. Previously counseled that it was acceptable [...] 03/21/2017 Assessment & Plan (03/21/2017 7:22 PM RN [facility]): Margoth is an 17 yo F with [...] 09/17/2019 Assessment & Plan (03/20/2017 10:55 AM RN [facility]): Assessment: Margoth is an 17-year-old female with [...] with outpatient GI on 03/26 - continue FACILITIES AND GROUNDS DIRECTOR medications ASA 81 mg PO daily Cholecalciferol 2000 units PO qd Ferrous sulfate 325 mg PO BID Hydroxyzine 25 mg PO qhs Magnesium oxide 400 mg qd Mycophenolate 500 mg PO BID Assessment & Plan (03/19/2017 11:23 AM RN [facility]): Assessment: Margoth is an 17-year-old female with [...] esomeprazole to 40 mg daily - continue FACILITIES AND GROUNDS DIRECTOR medications ASA 81 mg PO daily Cholecalciferol 2000 units PO qd Ferrous sulfate 325 mg PO BID Hydroxyzine 25 mg PO qhs Magnesium oxide 400 mg qd Tacrolimus 1.5 mg qAM, 2 mg qhs Mycophenolate 500 mg PO BID Assessment & Plan (03/18/2017 2:09 PM RN [facility]): Assessment: Margoth is an 17-year-old female with [...] - daily liver function panels - continue FACILITIES AND GROUNDS DIRECTOR medications ASA 81 mg PO daily Cholecalciferol 2000 units PO qd Ferrous sulfate 325 mg PO BID Hydroxyzine 25 mg PO qhs Magnesium oxide 400 mg qd Tacrolimus 1.5 mg qAM, 2 mg qhs Mycophenolate 500 mg PO BID Assessment & Plan (03/18/2017 1:46 PM RN [facility]): Assessment: 17 y/o female with history of [...] QPM Assessment & Plan (03/17/2017 2:01 PM RN [facility]): Assessment: 17 y/o female with history of [...] QPM Assessment & Plan (03/17/2017 1:23 PM RN [facility]): Assessment: Margoth is an 17-year-old female with [...] with the previous steroid treatment - continue F[employer]ILITIES AND GROUNDS DIRECTOR medications ASA 81 mg PO daily Cholecalciferol 2000 units PO qd Ferrous sulfate 325 mg PO BID Hydroxyzine 25 mg PO qhs Magnesium oxide 400 mg qd Tacrolimus 1.5 mg qAM, 2 mg qhs Mycophenolate 500 mg PO BID Assessment & Plan (03/16/2017 2:07 PM RN [facility]): Assessment: 17 y/o female with history of [...] QPM Assessment & Plan (03/16/2017 10:50 AM RN [facility]): Assessment: Margoth is an 17-year-old female with [...] completed Assessment & Plan (03/15/2017 3:28 PM RN [facility]): Assessment: 17 y/o female with history of [...] biliary obstructed vs rejection. Plan: Admit to GI, Dr. De Anda NPO, IVMF until MRCP [...] 03/08/201701/17 Assessment & Plan (04/21/2017 3:25 PM RN [facility]): Chronic daily headaches (mixed pattern of migraines [...] - transition to adult neurology (either at [facility] or elsewhere). 13. Call in 4-6 weeks with update regarding headaches, sooner for concerns Assessment & Plan (03/09/2017 11:32 AM RN [facility]): Assessment: Has not had a headache over [...] 03/15 Assessment & Plan (03/08/2017 10:50 AM RN [facility]): Assessment: Margoth has a history of migraine [...] pain Assessment & Plan (03/08/2017 1:03 AM RN [facility]): Assessment: Margoth has a history of migraine [...] 01/18/2020 Assessment & Plan (03/09/2017 11:36 AM RN [facility]): Assessment: The patient's elevated liver enzymes are [...] the hydroxyzine for pruritis 2. Continue with FACILITIES AND GROUNDS DIRECTOR anti-rejection medications, tacrolimus, mycophenolate, ferrous sulfate, ASA, magnesium oxide, and vitamin D 3. Follow-up liver panel on Wednesday, 03/13 at [facility] Assessment & Plan (03/08/2017 10:46 AM RN [facility]): Assessment: Margoth Prather is a 16 y.o. female with hx [...] ASA Assessment & Plan (03/08/2017 1:00 AM RN [facility]): Assessment: Margoth Prather is a 16 y.o. female with hx [...] 01/18/2020 Assessment & Plan (05/20/2017 9:54 PM RN [facility]): Assessment: Margoth is an 17 year old [...] BID Assessment & Plan (05/20/2017 2:25 PM RN [facility]): Assessment: Margoth Prather is a 17 yo with HCC s/p [...] meds Assessment & Plan (05/19/2017 1:52 PM RN [facility]): Assessment: Margoth is an 17 year old [...] BID Assessment & Plan (05/18/2017 11:19 AM RN [facility]): Assessment: Margoth is an 17 year old [...] BID Assessment & Plan (05/17/2017 1:44 PM RN [facility]): Assessment: Margoth is an 17 year old [...] diet Assessment & Plan (04/09/2013 6:56 PM RN [facility]): Assessment: Margoth Prather is a 13 yo with HCC- Fibrolamellar [...] weeks Assessment & Plan (04/08/2013 10:01 PM RN [facility]): Assessment: Margoth Prather is a 13 yo with HCC- Fibrolamellar [...] weeks Assessment & Plan (03/19/2013 12:21 PM RN [facility]): Assessment: Margoth is a 13yo with h/o [...] daily Assessment & Plan (03/19/2013 11:08 AM RN [facility]): Assessment: Margoth is a 13yo with h/o [...] daily Assessment & Plan (03/18/2013 10:34 AM RN [facility]): Assessment: Margoth is a 13 yo s/p [...] to hold PRBC and FFP for procedure -qualitative field coordinator Gli are aware and will coordinate with [place] -IP consult to pastoral care -IP consult to licensed clinical social worker -qualitative field coordinator Gil are aware and will coordinate with [place] -IP consult to pastoral care -IP consult to licensed clinical social worker Footprints Patient 02/11/2012 0 Overview (02/11/2012): Simona Mcgee MA,CCLS is [facility] Credit [phone]. HCC (hepatocellular carcinoma) 01/29/2012 07/16/2017 Overview (02/12/2012): [...] -- Flu shot 01/21/12 Pain, Anxiety, Sedation 01/29/201208/19 Overview (01/31/2012): S/p chemo-embolization on 01/29/12 for HCC. Dilaudid TATTOOER (due to extreme pruritis with morphine) not [...] growth 01/31/2020 28 weeks gestation of 01/31/2020 Encounters Date Type Department Care Team Description 05/02/2024 12:00 PM RN [facility] Office Visit [facility] - GI [address] [place] [phone] Juan Landry MD Liver transplant status (HCC) (Primary Dx) 05/02/2024 Travel 04/21/2024 Orders Only [facility] - GI [address] [place] [address] Juan Landry MD 04/21/2024 Travel 04/13/2024 [place] [facility] [place] [address] [place] [phone] Juan Landry MD Refill Request 02/23/2024 Travel 02/23/2024 Telephone [facility] - GI [address] [place] [phone] Oleksandr Lau Future Appointment (I reached out to try and reschedule the appointment) 02/21/2024 Telephone [facility] - [address] [place] [phone] Pearl Brennan, RN Appointment 02/17/2024 Refill [facility] - [address] [place] [phone] Juan Landry MD Refill Request from Last 3 Months Immunizations Name Administration Dates Next Due INFLUENZA VACCINE, TRIV. (AF LURIA, FLUZONE TRIVALENT; 6MO+) (IIV3) 02/09/2007 CovRoomorama primary monoval ent 12+ yr 0.3mL Purple cap 06/20/2020,05/31/2020 DTaP VACCINE IM (6wk-6yrs) 11/01/2003,,1999,1999,1999 HEP A PEDS 2 DOSE 07/19/2006,04/29/2002 HEP B VACCINE, PED/ADOL 03/01/2001,1999, HIB-PRP-T 4 DOSE 08/25/2000, 0,1999,1999 Human Papilloma Virus Vaccine 09/24/2010, 011,03/05/2010 INFLUENZA VACCINE 02/17/2018, 7,01/21/2016,2013,01/21/2012 INFLUENZA VACCINE, QUADR. (F LUZONE; FLULAVAL; FLUARIX; AFLURIA QUADRIVALENT; 6MO+), 0.5 ML (IIV4) 01/31/2020 MENINGOCOCAL MENINGITIS 01/13/2017 MMR 11/01/2003,03/19/2000 PNEUMOCOCCAL PCV7 CONJ, PEDS 03/19/2000,12/17/19 00 POLIO IPV 11/01/2003, 0,1999,1999 TDAP (7yrs+) 12/06/2022(Deferred: See Comments - pt has already received this ),10/13/2022,03/24/2020(Deferr ed: See Comments - PT recieved tdap this ),01/31/2020,03/07/2011 VARICELLA 08/03/2007,03/19/2000 Family History Medical History Relation Name Comments Crohn's Disease Father Diabetes - Type 2 Maternal Grandmother Relation Name Status Comments Father Alive Maternal Grandmother Mother Alive Social History Tobacco Use Types Packs/Day Years [...] you are drinking? Patient does not drink Q3: How often do you have si x or more drinks on one occasion? Never 03/12/2023 Overall Financial Resource Strain (CARDIA) Answe r Date Recorded How hard is it for you to pa y for the very basics like food, housing, medical care, and heating? Not hard at all 12/05/2022 PHQ-2 Answer Date Recorded Patient Health Questionnaire-2 Score 0 12/15/2023 [facility] [place] of Occupat ional Health - Occupational Stress [...] in a halfway (including now)? No 12/05/2022 [place] Depression Scale Answer Date Recorded [place] Depression Scale Total 6 01/19/2023 The thought [...] Comments Blood Pressure 121/75 05/02/2024 11:44 AM RN [facility] Pulse 88 05/02/2024 11:44 AM RN [facility] Temperature 36.5 ??C (97.7 ??F) 05/02/2024 11:[address] Respiratory Rate 18 11/08/2023 8:52 AM CDT Oxygen Saturation 99% 05/02/2024 11:44 AM RN [facility] Inhaled Oxygen Concentration 100% 07/14/2017 1 2:45 PM CDT Weight 71.9 kg (158 lb 9.6 oz) 05/02/2024 11:44 AM RN [facility] Height 167.6 cm (5' 6 ) 05/02/2024 11:44 AM RN [facility] Body Mass Index 25.6 05/02/2024 11:44 AM RN [facility] Plan of Treatment Upcoming Encounters Date Type Department Care Team (Late st Contact Info) Description 06/27/2024 10:50 AM CDT Office Visit [facility] - [facility]STRU[facility] [employer] [address] [place] [address] Sabra Rocha MD [address] [place] [address] 08/09/2024 3:00 PM CDT Office Visit [facility] - GI [address] [facility] [place] [phone] Chayo Tyson PA-C [address] [facility] DEPT [place] [phone] 10/30/2024 11:30 AM CDT Office Visit [facility] - GI [address] [place] [phone] Juan Landry MD [address] [facility] [address] [place] [address] Health Maintenance Due Date Last Done Comments PNEUMOCOCCAL VACCINE (1 of 2 - PPSV23) 05/14/2000 03/19/2000, 1999 ZOSTER VACCINE (1 of 2) 2018 CHLAMYDIA/GONORRHEA SCREENING 11/01/2023 10/31/2022, 09/19/2022, 09/09/2020, Additional history exists COVID-19 VACCINE ( season) 2023 04/01/2021, 06/20/2020, 05/31/2020 INFLUENZA VACCINE (#1) 2023 , 02/17/2018, 02/03/2018, Additional history exists DEPRESSION SCREENING 04/19/2024 12/15/2023, 10/13/2022, 05/02/2021 PAP SMEAR 06/22/2026 06/23/2023, 09/09/2020 DTAP/TDAP/TD VACCINES (9 - Td or Tdap) 10/13/2032 10/13/2022, 01/31/2020, 03/07/2011, Additional history exists HIB VACCINE Completed 08/25/2000, 09/17, 1999, Additional history exists HEPATITIS B VACCINE Completed 03/01/2001, 1999, 1999 HPV VACCINE Completed 09/24/2010, 04/20, 03/05/2010 MENINGOCOCCAL VACCINE Completed 01/13/2017 HEPATITIS C SCREENING Completed 09/24/2022 , 08/07/2019, 05/25/2017, Additional history exists HIV SCREENING Completed 09/24/2022, 01/19, 08/07/2019, Additional history exists MENINGOCOCCAL (Group B) VACCINE Aged Out No longer eligible based on patient's age to complete this topic Goals Goal Patient Goal Type Associated Problems Recent Progress Patient-Stated? Author Safety General Alida Barlow RN Note: Expected end date: ongoing Interventions: Your nurse will assess your risk for falls/injury each visit Medication Management General On track( 025 11:50 AM RN [facility]) No Alida Harp RN Note: Expected end date:ongoing Interventions: Take all medications as prescribed Let your doctor know right away about any changes in your medications Make sure to request a refill of your medication at least one week prior to your last dose Procedures Procedure Name Priority Date/Time Associated Diagnosis Comments TACROLIMUS LEVEL 04/21/2024 2:53 PM RN [facility] HEMOGLOBIN A1C 04/21/2024 2:53 PM RN [facility] CBC W/O DIFFERENTIAL 04/21/2024 2:53 PM RN [facility] HEPATIC FUNCTION PANEL 04/21/2024 2:53 PM RN [facility] BASIC METABOLIC PANEL (CALCIUM TOTAL) 04/21/2024 2:53 PM RN [facility] LIPID PROFILE 04/21/2024 2:53 PM RN [facility] PAP IMAGE-GUIDED W HPV Routine 06/23/2023 11:24 AM RN [facility] Encounter for gynecological examination without abnormal finding CHLAMYDIA + GC AMPLIFIED PROBE STAT 10/31/2022 6:43 AM CDT Threatened premature labor in third trimester (HCC) HEPATITIS C AB W/RFLX TO HCV RNA QN PCR Routine 09/24/2022 High-risk in second trimester (HCC) HIV-1 HIV-2 ANTIBODY + HIV P24 AG PANEL Routine 09/24/2022 High-risk in second trimester (HCC) from Last 3 Months or Most Recently Relevant to Health Maintenance Results * TACROLIMUS LEVEL (04/21/2024 2:53 PM RN [facility]) Tacrolimus 5.2 mcg/L [facility] Comment: No definitive therapeutic or toxic ranges have been established. Optimal blood drug levels are influenced by type of transplant, patient response, time post- transplant, co-administration of other drugs, and drug formulation. The following trough range is a suggested guideline: 5.0-20.0 mcg/L. Test Performed at: [facility] [address] [place] [address] ??[phone] NIGEL RUIZ MD 04/21/2024 2:53 PM RN [facility] 04/21/2024 2:54 PM RN [facility] Juan Landry MD LAB - THERAPEUTIC DR MARTINEZ MONITORING ORDERABLES [address] [address] * HEMOGLOBIN A1C (04/21/2024 2:53 PM RN [facility]) Hemoglobin A1c <4.2 <5.7 % of total [...] diagnosis of diabetes in children. According to [place] Diabetes Association (ADA) guidelines, hemoglobin A1c <7.0% represents optimal control in non- diabetic patients. Different metrics may apply to specific patient populations. Standards of Medical Care in Diabetes(ADA). ?? Test Performed at: [facility] ??[phone] NIGEL RUIZ MD 04/21/2024 2:53 PM RN [facility] 04/21/2024 2:54 PM RN [facility] Juan Landry MD LAB - CHEMISTRY STEPHON AKINS Performing Organization Address [facility] de Phone Number [address] [address] * (ABNORMAL) CBC W/O DIFFERENTIAL (04/21/2024 2:53 PM RN [facility]) Pathologist [facility] White Blood Cell Count 3.7(L) 3.8 - [...] 12.5 fL [facility] Comment: Test Performed at: [facility] ??[id number] NIGEL RUIZ MD 04/21/2024 2:53 PM RN [facility] 04/21/2024 2:54 PM RN [facility] Juan Landry MD LAB - HEMATOLOGY ORD LOVE Performing Organization Address [facility] Co de Phone Number [address] [address] * (ABNORMAL) BASIC METABOLIC PANEL (CALCIUM TOTAL) (04/21/2024 2:53 PM RN [facility]) Pathologist [facility] Glucose 101(H) 65 - 99 mg/dL [facility] [...] 10.2 mg/dL [facility] Comment: Test Performed at: [facility] ??[phone] NIGEL RUIZ MD 04/21/2024 2:53 PM RN [facility] 04/21/2024 2:54 PM RN [facility] Juan Landry MD LAB - CHEMISTRY STEPHON AKINS [address] [address] * (ABNORMAL) HEPATIC FUNCTION PANEL (04/21/2024 2:53 PM RN [facility]) Protein Total 6.3 6.1 - 8.1 g/dL [...] 29 U/L [facility] Comment: Test Performed at: [facility] ??[phone] NIGEL RUIZ MD 04/21/2024 2:53 PM RN [facility] 04/21/2024 2:54 PM RN [facility] Juan Landry MD LAB - CHEMISTRY STEPHON AKINS Performing Organization Address [facility] de Phone Number [address] [address] * LIPID PROFILE (04/21/2024 2:53 PM RN [facility]) Cholesterol 140 <200 mg/dL [facility] HDL Cholesterol [...] equation in the estimation of LDL-C. Jorge WOODALL et al. DANIELLE. 2013;310(19): 4979-9660 (http://education.Hemova Medical.iMER/faq/EPH551) CHOL/HDLC RATIO 2.1 <5.0 (calc) [facility] Non HDL Cholesterol 74 <130 mg/dL (calc) [facility] Comment: For patients with diabetes plus 1 major ASCVD risk factor, treating to a non-HDL-C goal of <100 mg/dL (LDL-C of <70 mg/dL) is considered a therapeutic option. Test Performed at: [facility] ??[phone] NIGEL RUIZ MD 04/21/2024 2:53 PM RN [facility] 04/21/2024 2:54 PM RN [facility] Juan Landry MD LAB - CHEMISTRY STEPHON AKINS Performing Organization Address [facility] Co de Phone Number [address] [address] * PAP IMAGE-GUIDED W HPV (06/23/2023 11:24 AM RN [facility]) Case Report Gynecologic Cytology Report ? Case: [id number] ? Authorizing Provider: ??Aj, Sabra, MD ?Collected: ? 06/23/2023 11:24 AM ? Ordering Location: ? [facility] - ??Received: ?06/24/2023 11:24 AM ? [employer]STRUCTION [employer] ? First Screen: ?Maycol, Jarvis ? Specimen: [...] lesion or malignancy. 06/28/2023 10:16 AM CDT [facility] Interpretation GLASS CURVATURE GAUGER Negative for intraepithelial lesion or malignancy. 06/28/2023 10:16 AM CDT [facility] Pap Footnote The Pap Smear is a screening test. False positive and false negative results occur. Negative results do not preclude abnormalities, thus clinical correlation is required. This specimen was evaluated by the ThinPrep Imaging System along with an additional manual rescreening by a operations and maintenance technician and/or pathologist. 06/28/2023 10:16 AM CDT [facility] Embedded Images 10:16 AM CDT [facility] Pathology/Cytolo gy MISCELLANEOUS SAMPLES / Unknown 06/23/2023 11:24 AM RN [facility] 06/24/2023 11:24 AM RN [facility] Sabra Rocha MD LAB - PATHOLOGY/CYTO LOGY ORDERABLES [facility] [address] [place] [address], [facility] [phone] * CHLAMYDIA + GC AMPLIFIED PROBE (10/31/2022 6:43 AM CDT) Chlamydia Amplified Probe Negative Negative 10/31/2022 10:35 PM CDT [facility] GC Amplified Probe Negative Negative 10/31/2022 10:35 PM CDT [facility] Microbiology PART OF UTERINE CERVIX / Unknown Collection / Unknown 10/31/2022 6:43 AM CDT 10/31/2022 6:52 AM CDT Narrative [facility] - 10/31/2022 10:35 PM CDT Results based on detection/no detection of ribosomal RNA by amplified method. Max De León DO LAB - MICROBIOLOGY O RDERABLES [facility] [address] [place] [address], [facility] [phone] * HEPATITIS C AB W/RFLX TO HCV RNA QN PCR (09/24/2022) Hepatitis C Antibody NON-REACTI VE NON-REACT DAMON [facility] Signal to Cut-Off 0.16 <1.00 [facility] Comment: HCV antibody was non-reactive. There is no laboratory evidence of HCV infection. In most cases, no further action is required. However, if recent HCV exposure is suspected, a test for HCV RNA (test code 72077) is suggested. For additional information please refer to http://Ditto.Booster.ly/faq/SIG66e9 (This link is being provided for informational/ educational purposes only.) Test Performed at: [facility] [address] [place], [place] ??[phone] NIGEL RUIZ MD Blood BLOOD SPECIMEN / Unknown 09/24/2022 09/24/2022 10:57 AM CDT Kecia Orosco [employer]ED [employer] INTERN LAB - CHEMISTR Y ORDERABLES Performing Organization Address City/State/[facility] Co de Phone Number [facility] [address] [place] [address] * HIV-1 HIV-2 ANTIBODY + HIV P24 AG PANEL (09/24/2022) Pathologist [facility] HIV Screen 4th Generation w Reflex NON-REACT DAMON NON-REACT DAMON [facility] Comment: HIV-1 antigen and HIV-1/HIV-2 antibodies were [...] ?? For additional information please refer to http://Ditto.Booster.ly/faq/[email or web address] (This link is being provided for informational/ educational purposes only.) The performance of this assay has not been clinically validated in patients less than 2 years old. Test Performed at: [facility] [address] [place], [place] ??[id number] NIGEL RUIZ MD Blood BLOOD SPECIMEN / Unknown 09/24/2022 09/24/2022 10:57 AM CDT Kecia Orosco [facility] - CHEMISTR Y ORDERABLES [facility] [address] [place] [address] from Last 3 Months or Most Recently Relevant to Health Maintenance Advance Directives * Full Code (Latest Code Status on File) Date Activated Date Inactivated Comments 12/05/2022 6:15 AM 12/07/2022 3:18 PM * Full Code Date Activated Date Inactivated Comments 03/22/2020 9:10 PM 03/25/2020 3:07 PM * Full Code Date Activated Date Inactivated Comments 03/03/2020 8:11 PM 03/03/2020 11:24 PM * Full Code Date Activated Date Inactivated Comments 02/20/2020 7:05 PM 02/20/2020 10:34 PM * Full Code Date Activated Date Inactivated Comments 02/16/2020 4:48 AM 02/17/2020 3:35 PM Care Teams Advice Clerk Relationship Specialty Start Date End Date Josiah Palacios MD [facility] [place] [address] PCP - General Family Medicine 01/19/23 Stephanie Lozano, RN Registered Nurse 12/16/16 Rei Ann, PharmD Pharmacist 01/12/17
--- OUTSIDE RECORDS SUMMARY | 2024-05-19 10:30 | XMS_ITS | Encounter Summary ---
Author Organization [facility] Address [address] [place] [address] Care Team Providers Care Academic Affairs Vice President Name Role Phone Josiah Palacios MD Primary Care Provider [phone] Stephanie Lozano RN Unavailable Unav ailable Rei Ann PharmD Unavailable Unavai Tesfaye Rivera MD Primary Care Provider [phone] Frida De Los Santos MD Unavailable Mariama Rudd CAREER DEVELOPMENT COUNSELOR Unavailable [phone] Josiah Palacios MD Primary Care Provider [phone] Marcel Ram MD Unavailable [phone] Encounter Details Date Type Department Care Team (Late st Contact Info) Description 07/21/2018 Telephone [facility] - [address] [address] Biju Walker MD [address] [place] [id number] Social History Tobacco Use Types Packs/Day Years [...] or have serious hearing difficult y? No 07/30/2017 Is person blind or have serious difficulty seein g? No 07/30/2017 Does person have serious dif ficulty walking/climbing stairs? No 07/30/2017 Does person have difficulty dressing/bathing? No 07/30/2017 Does person have difficulty doing errands alone? No 07/30/2017 Cognitive Status Response Date of Assessm ent Does person have difficulty concentrating/remembering/making decisions? No 07/30/2017 documented as of this encounter Miscellaneous Notes * Telephone Encounter - Jessica Ramesh RN - 07/22/2018 8:51 AM CDT Prep letter written and mailed to [place]. * Telephone Encounter - Megan Day - 07/21/2018 3:32 PM CDT Spoke with Stephanie in transplant scheduled outpatient Liver Biopsy on 08/02/18 @ [address] Walker. Send prep instructions to mailing address on file. documented in this encounter Plan of Treatment Upcoming Encounters Date Type Department Care Team (Late st Contact Info) Description 06/27/2024 10:50 AM CDT Office Visit [facility] [address] [facility] [address] [place] [phone] Sabra Rocha MD [address] [facility] [address] [place] [address] 08/09/2024 3:00 PM CDT Office Visit [facility] - [place] [address] [facility] [place] [phone] Chayo Tyson PA-C [address] [facility] DEPT [place] [phone] 10/30/2024 11:30 AM CDT Office Visit [facility] - [place] [address] [facility] [place] [phone] Juan Landry MD [facility] [facility] [address] [place] [address] documented as of this encounter Visit Diagnoses Not on filedocumented in this encounter Additional Health Concerns Infection Onset Date Last Indicated Resolved Time COVID-19 Under Investigation 02/16/2020 02/16/2020 02/16/2020 3:58 AM CDT COVID-19 Confirmed 02/16/2020 02/16/2020 0 4:33 AM IN HOME TUTOR documented as of this encounter Care Teams Academic Affairs Vice President Relationship Specialty Start Date End Date Josiah Palacios MD PCP - General Family Medicine 12/30/11 12/06/21 Tesfaye Baca MD [address] [place] [address] PCP - General 12/07/21 01/18/23 Frida De Los Santos MD [address] [facility] [address] [place] [address] PCP - Attributed-[employer] 07/18/22 3 Josiah Palacios MD [address] [place] [address] PCP - General Family Medicine 01/19/23 Marcel Ram MD [address] [facility] [address] [place] [address] PCP - Attributed-[employer] 01/17/23 4 Stephanie Lozano, RN Registered Nurse 12/16/16 Rei Ann, PharmD Pharmacist 01/12/17 Mariama Rudd, CAREER DEVELOPMENT COUNSELOR Outpatient Instrument Checker Care Management 12/08/2211/18 documented as of this encounter
--- OUTSIDE RECORDS SUMMARY | 2024-05-19 10:30 | XMS_ITS | Referral Summary ---
Author Organization [facility] Address [address] [place] [address] Care Team Providers Care Police Shift Commander Name Role Phone Stephanie Lozano RN Unavailable Unaadi ailRei Richard PharmD Unavailable Unavai Josiah Russell MD Primary Care Provider [phone] Source Comments [facility],non-owned Affiliates and Associated Physician Practices is amultiple site organization consisting of ambulatory clinics and hospital sitesin [place], [place], [place] and [place]. This disclosure is being madepursuant to the Care Everywhere program and may not contain all information available regarding this patient. Last updated 18.[facility] Encounters Date Type Department Care Team Description 05/02/2024 Travel 05/02/2024 12:00 PM CONCRETE LABORER Office Visit [facility] - [facility] [facility] [place] [address] Juan Landry MD Liver transplant status (HCC) (Primary Dx) 04/21/2024 Orders Only [facility] - TRUDY Armando [facility] [place] [address] Juan Landry MD 04/21/2024 Travel 04/13/2024 Refill [facility] - [facility] [address] [facility] [place] [address] Juan Landry MD Refill Request 02/23/2024 Travel 02/23/2024 Telephone [facility] - [address] [place] [address] Oleksandr Lau Future Appointment (I reached out to try and reschedule the appointment) 02/21/2024 Telephone [facility] - [address] [place] [phone] Pearl Brennan, RN Appointment 02/17/2024 Refill [facility] - [address] [facility], [place] [address] Juan Landry MD Refill Request from Last 3 Months Allergies Active Allergy Reactions Criticality Noted Date [...] mg by mouth once daily Active ursodiol (Vj Forte) 500 MG tabletIndicatio ns:Cholestatic Pruritus Take [...] migh t be different from the original. Electrical Cad Technician Stephanie Lozano [phone] Tacrolimus Target Level 6-8 Problem Noted Date [...] vaginal yeast infection Neuro/psych: Advanced from needing Independence q6h for pain to using Tylenol prn [...] (07/29/2017 1:32 PM CDT): Assessment: Assessment: Margoth Parther is an 17 year old female with [...] - End tidal CO2 monitoring while on FUNNEL COATER ?? Neuro - Fentanyl FUNNEL COATER - Basal 10mcg/hr, FUNNEL COATER dose 15mcg - Scheduled Toradol 30mg q6h [...] miralax daily for bowel regimen while on FUNNEL COATER - Continue prednisone FEN: - Continue IV [...] - End tidal CO2 monitoring while on FUNNEL COATER Neuro: significant diffuse myalgias throughout that are improved on FUNNEL COATER and Toradol - Fentanyl FUNNEL COATER - Basal 10mcg/hr, FUNNEL COATER dose 15mcg - Scheduled Toradol 30mg q6h [...] miralax daily for bowel regimen while on FUNNEL COATER - Continue prednisone Assessment & Plan (07/28/2017 [...] - End tidal CO2 monitoring while on FUNNEL COATER Neuro: significant diffuse myalgias throughout, received fentanyl in ED. - Fentanyl FUNNEL COATER - 1x dose of Toradol - Melatonin [...] miralax daily for bowel regimen while on FUNNEL COATER - Continue prednisone Assessment & Plan (07/27/2017 [...] some element of liver transplant rejection. Saw Boring Machine Operator [employer] in November--not recommended to have another follow up until . Never had repeat liver ultrasound performed in October. Itching complaint could be a side effect of Tacrolimus which is now being used TID. Also with bleeding gums. [facility] Recommendations: 1. checking coags & bile acids 2. Should have liver ultrasound performed and report forwarded to [facility]. 3. Previously counseled that it was acceptable [...] 03/21/2017 Assessment & Plan (03/21/2017 7:22 PM CONCRETE LABORER): Margoth is an 17 yo F with [...] 09/17/2019 Assessment & Plan (03/20/2017 10:55 AM CONCRETE LABORER): Assessment: Margoth is an 17-year-old female with [...] with outpatient GI on 03/26 - continue CORROSION ENGINEER medications ASA 81 mg PO daily Cholecalciferol 2000 units PO qd Ferrous sulfate 325 mg PO BID Hydroxyzine 25 mg PO qhs Magnesium oxide 400 mg qd Mycophenolate 500 mg PO BID Assessment & Plan (03/19/2017 11:23 AM CONCRETE LABORER): Assessment: Margoth is an 17-year-old female with [...] esomeprazole to 40 mg daily - continue CORROSION ENGINEER medications ASA 81 mg PO daily Cholecalciferol 2000 units PO qd Ferrous sulfate 325 mg PO BID Hydroxyzine 25 mg PO qhs Magnesium oxide 400 mg qd Tacrolimus 1.5 mg qAM, 2 mg qhs Mycophenolate 500 mg PO BID Assessment & Plan (03/18/2017 2:09 PM CONCRETE LABORER): Assessment: Margoth is an 17-year-old female with [...] - daily liver function panels - continue CORROSION ENGINEER medications ASA 81 mg PO daily Cholecalciferol 2000 units PO qd Ferrous sulfate 325 mg PO BID Hydroxyzine 25 mg PO qhs Magnesium oxide 400 mg qd Tacrolimus 1.5 mg qAM, 2 mg qhs Mycophenolate 500 mg PO BID Assessment & Plan (03/18/2017 1:46 PM CONCRETE LABORER): Assessment: 17 y/o female with history of [...] QPM Assessment & Plan (03/17/2017 2:01 PM CONCRETE LABORER): Assessment: 17 y/o female with history of [...] rejection, will need to follow with Dr. Walkre for definitive plan as she will likely require steroids but patient is not accepting of this at this time. Continue Home meds: -ASA 81mg PO daily -Cholecalciferol 2000 Units PO Qday -Ferrous Sulfate 325mg PO BID -Hydroxyzine 25mg PO QHS -Mag Ox 400mg Qday -Cellcept 500mg PO BID -Prograf 1.5mg QAM and 2mg QPM Assessment & Plan (03/17/2017 1:23 PM CONCRETE LABORER): Assessment: Margoth is an 17-year-old female with [...] with the previous steroid treatment - continue CORROSION ENGINEER medications ASA 81 mg PO daily Cholecalciferol 2000 units PO qd Ferrous sulfate 325 mg PO BID Hydroxyzine 25 mg PO qhs Magnesium oxide 400 mg qd Tacrolimus 1.5 mg qAM, 2 mg qhs Mycophenolate 500 mg PO BID Assessment & Plan (03/16/2017 2:07 PM CONCRETE LABORER): Assessment: 17 y/o female with history of [...] QPM Assessment & Plan (03/16/2017 10:50 AM CONCRETE LABORER): Assessment: Margoth is an 17-year-old female with [...] completed Assessment & Plan (03/15/2017 3:28 PM CONCRETE LABORER): Assessment: 17 y/o female with history of [...] biliary obstructed vs rejection. Plan: Admit to Dr. Adilson YATES NPO, IVMF until MRCP MRCP today to [...] 03/08/201701/17 Assessment & Plan (04/21/2017 3:25 PM CONCRETE LABORER): Chronic daily headaches (mixed pattern of migraines [...] - transition to adult neurology (either at [facility] or elsewhere). 13. Call in 4-6 weeks with update regarding headaches, sooner for concerns Assessment & Plan (03/09/2017 11:32 AM CONCRETE LABORER): Assessment: Has not had a headache over [...] 03/15 Assessment & Plan (03/08/2017 10:50 AM CONCRETE LABORER): Assessment: Margoth has a history of migraine [...] pain Assessment & Plan (03/08/2017 1:03 AM CONCRETE LABORER): Assessment: Margoth has a history of migraine [...] 01/18/2020 Assessment & Plan (03/09/2017 11:36 AM CONCRETE LABORER): Assessment: The patient's elevated liver enzymes are [...] the hydroxyzine for pruritis 2. Continue with CORROSION ENGINEER anti-rejection medications, tacrolimus, mycophenolate, ferrous sulfate, ASA, magnesium oxide, and vitamin D 3. Follow-up liver panel on Wednesday, 03/13 at [facility] Assessment & Plan (03/08/2017 10:46 AM CONCRETE LABORER): Assessment: Margoth Prather is a 16 y.o. [...] ASA Assessment & Plan (03/08/2017 1:00 AM CONCRETE LABORER): Assessment: Margoth Prather is a 16 y.o. [...] 01/18/2020 Assessment & Plan (05/20/2017 9:54 PM CONCRETE LABORER): Assessment: Margoth is an 17 year old [...] BID Assessment & Plan (05/20/2017 2:25 PM CONCRETE LABORER): Assessment: Margoth Prather is a 17 yo [...] meds Assessment & Plan (05/19/2017 1:52 PM CONCRETE LABORER): Assessment: Margoth is an 17 year old [...] BID Assessment & Plan (05/18/2017 11:19 AM CONCRETE LABORER): Assessment: Margoth is an 17 year old [...] BID Assessment & Plan (05/17/2017 1:44 PM CONCRETE LABORER): Assessment: Margoth is an 17 year old [...] diet Assessment & Plan (04/09/2013 6:56 PM CONCRETE LABORER): Assessment: Margoth Prather is a 13 yo [...] weeks Assessment & Plan (04/08/2013 10:01 PM CONCRETE LABORER): Assessment: Margoth Prather is a 13 yo [...] weeks Assessment & Plan (03/19/2013 12:21 PM CONCRETE LABORER): Assessment: Margoth is a 13yo with h/o [...] daily Assessment & Plan (03/19/2013 11:08 AM CONCRETE LABORER): Assessment: Margoth is a 13yo with h/o [...] daily Assessment & Plan (03/18/2013 10:34 AM CONCRETE LABORER): Assessment: Margoth is a 13 yo s/p [...] to hold PRBC and FFP for procedure -regulatory compliance coordinator Cassia and Anthony are aware and will coordinate with OR -IP consult to pastoral care -IP consult to manager social responsibility -regulatory compliance coordinator Gil are aware and will coordinate with OR -IP consult to pastoral care -IP consult to manager social responsibility Footprints Patient 02/11/2012 0 Overview (02/11/2012): Simona Mcgee MA,CCLS is Margoth's [facility] Education Coordinator [phone]. HCC (hepatocellular carcinoma) 01/29/2012 07/16/2017 Overview (02/12/2012): 11 yo with HCC s/p [facility]embolization at [facility] 01[facility]29[facility]12, d/c'ed on 02/04; presents to ED 02/07 with h/o daily fevers (Tmax 102), chills abdominal pain since d/c. Has been treating with 600mg Motrin; weaning off oxycontin (last dose to be 10/[address] scan in ED shows small [...] S/p chemo-embolization on 01/29/12 for HCC. Dilaudid FUNNEL COATER (due to extreme pruritis with morphine) not [...] 01/31/2020 28 weeks gestation of 01/31/2020 Immunizations Name Administration Dates Next Due INFLUENZA VACCINE, TRIV. (AF LURIA, FLUZONE TRIVALENT; 6MO+) (IIV3) 02/09/2007 [employer] primary monoval ent 12+ yr 0.3mL Purple [...] PT recieved tdap this ),01/31/2020,03/07/2011 VARICELLA 08/03/2007,03/19/2000 Social History Tobacco Use Types Packs/Day Years [...] Recorded Patient Health Questionnaire-2 Score 0 12/15/2023 [facility] Occupat ional [facility] - Occupational Stress [...] place to sleep or slept in a care home (including now)? No 12/05/2022 Whiteford Depression Scale Answer Date Recorded Whiteford Depression Scale Total 6 01/19/2023 The thought [...] Comments Blood Pressure 121/75 05/02/2024 11:44 AM CONCRETE LABORER Pulse 88 05/02/2024 11:44 AM CONCRETE LABORER Temperature 36.5 ??C (97.7 ??F) 05/02/2024 11:[address] Respiratory Rate 18 11/08/2023 8:52 AM CDT Oxygen Saturation 99% 05/02/2024 11:44 AM CONCRETE LABORER Inhaled Oxygen Concentration 100% 07/14/2017 1 2:45 PM CDT Weight 71.9 kg (158 lb 9.6 oz) 05/02/2024 11:44 AM CONCRETE LABORER Height 167.6 cm (5' 6 ) 05/02/2024 11:44 AM CONCRETE LABORER Body Mass Index 25.6 05/02/2024 11:44 AM CONCRETE LABORER Functional Status Functional Status Response Date of Assess ment Is person deaf or have serious hearing difficult y? No 03/12/2023 Is person blind or have serious difficulty seein g? No 03/12/2023 Does person have serious dif ficulty walking/climbing stairs? No 03/12/2023 Does person have difficulty dressing/bathing? No 03/12/2023 Does person have difficulty doing errands alone? No 03/12/2023 Cognitive Status Response Date of Assessm ent Does person have difficulty concentrating/remembering/making decisions? No 03/12/2023 Plan of Treatment Upcoming Encounters Date Type Department Care Team (Late st Contact Info) Description 06/27/2024 10:50 AM CDT Office Visit [facility] - INSURANCE SALES REPRESENTATIVE [address] [place] [phone] Sabra Rocha MD [address] [place] [address] 08/09/2024 3:00 PM CDT Office Visit [facility] [place] [address] [place] [address], [place] [phone] Chayo Tyson PA-C [address] [facility] DEPT [place] [phone] 10/30/2024 11:30 AM CDT Office Visit [facility] [place] [address] [place] [phone] Juan Landry MD [address] [place] [address] Goals Goal Patient Goal Type Associated Problems Recent Progress Patient-Stated? Author Safety General Alida Barlow, RN Note: Expected end date: ongoing Interventions: Your nurse will assess your risk for falls/injury each visit Medication Management General On track( 025 11:50 AM CONCRETE LABORER) Alida Barlow RN Note: Expected end date:ongoing Interventions: Take all medications as prescribed Let your doctor know right away about any changes in your medications Make sure to request a refill of your medication at least one week prior to your last dose Procedures Procedure Name Priority Date/Time Associated Diagnosis Comments TACROLIMUS LEVEL 04/21/2024 2:53 PM CONCRETE LABORER HEMOGLOBIN A1C 04/21/2024 2:53 PM CONCRETE LABORER CBC W/O DIFFERENTIAL 04/21/2024 2:53 PM CONCRETE LABORER HEPATIC FUNCTION PANEL 04/21/2024 2:53 PM CONCRETE LABORER BASIC METABOLIC PANEL (CALCIUM TOTAL) 04/21/2024 2:53 PM CONCRETE LABORER LIPID PROFILE 04/21/2024 2:53 PM CONCRETE LABORER PAP IMAGE-GUIDED W HPV Routine 06/23/2023 11:24 AM CONCRETE LABORER Encounter for gynecological examination without abnormal finding [...] Results * TACROLIMUS LEVEL (04/21/2024 2:53 PM CONCRETE LABORER) Tacrolimus 5.2 mcg/L [facility] Comment: No definitive therapeutic or toxic ranges have been established. Optimal blood drug levels are influenced by type of transplant, patient response, time post- transplant, co-administration of other drugs, and drug formulation. The following trough range is a suggested guideline: 5.0-20.0 mcg/L. Test Performed at: [facility] [id number] [place] [address] ??[phone] NIGEL RUIZ MD 04/21/2024 2:53 PM CONCRETE LABORER 04/21/2024 2:54 PM CONCRETE LABORER Juan Landry MD LAB - THERAPEUTIC DR MARTINEZ MONITORING ORDERABLES [facility] [address] [place] [address] * HEMOGLOBIN A1C (04/21/2024 2:53 PM CONCRETE LABORER) Hemoglobin A1c <4.2 <5.7 % of total [...] diagnosis of diabetes in children. According to [place] Diabetes Association (ADA) guidelines, hemoglobin A1c <7.0% represents optimal control in non- diabetic patients. Different metrics may apply to specific patient populations. Standards of Medical Care in Diabetes(ADA). ?? Test Performed at: [facility] ??[phone] NIGEL RUIZ MD 04/21/2024 2:53 PM CONCRETE LABORER 04/21/2024 2:54 PM CONCRETE LABORER Juan Landry MD LAB - CHEMISTRY STEPHON AKINS [address] [address] * (ABNORMAL) CBC W/O DIFFERENTIAL (04/21/2024 2:53 PM CONCRETE LABORER) White Blood Cell Count 3.7(L) 3.8 - [...] 12.5 fL [facility] Comment: Test Performed at: [facility] ??[id number] NIGEL RUIZ MD 04/21/2024 2:53 PM CONCRETE LABORER 04/21/2024 2:54 PM CONCRETE LABORER Juan Landry MD LAB - HEMATOLOGY ORD ERABLES Performing Organization Address [facility] Co de Phone Number [address] [address] * (ABNORMAL) BASIC METABOLIC PANEL (CALCIUM TOTAL) (04/21/2024 2:53 PM CONCRETE LABORER) Glucose 101(H) 65 - 99 mg/dL [facility] [...] 10.2 mg/dL [facility] Comment: Test Performed at: [facility] ??[id number] NIGEL RUIZ MD 04/21/2024 2:53 PM CONCRETE LABORER 04/21/2024 2:54 PM CONCRETE LABORER Juan Landry MD LAB - CHEMISTRY ORDE RABLES Performing Organization Address [facility] Co de Phone Number [address] [address] * (ABNORMAL) HEPATIC FUNCTION PANEL (04/21/2024 2:53 PM CONCRETE LABORER) Protein Total 6.3 6.1 - 8.1 g/dL [...] 29 U/L [facility] Comment: Test Performed at: [facility] ??[id number] NIGEL RUIZ MD 04/21/2024 2:53 PM CONCRETE LABORER 04/21/2024 2:54 PM CONCRETE LABORER Juan Landry MD LAB - CHEMISTRY [facility] Address City/State/ZIP Co de Phone Number [address] [address] * LIPID PROFILE (04/21/2024 2:53 PM CONCRETE LABORER) Pathologist [facility] Cholesterol 140 <200 mg/dL [facility] HDL Cholesterol 66 > OR = 50 mg/dL [facility] Triglycerides 54 <150 mg/dL [facility] LDL Calculated 61 mg/dL (calc) [facility] Comment: Reference range: <100 Desirable range <100 mg/dL for primary prevention; ?? <70 mg/dL for patients with CHD or diabetic patients with > or = 2 CHD risk factors. LDL-C is now calculated using the Adrienne calculation, which is a validated novel method providing better accuracy than the Friedewald equation in the estimation of LDL-C. Jorge WOODALL et al. DANIELLE. 2013;310(19): 9772-9225 (http://education.ActiveGift.[employer]/faq/SJK556) CHOL/HDLC RATIO 2.1 <5.0 (calc) [facility] Non HDL Cholesterol 74 <130 mg/dL (calc) [facility] Comment: For patients with diabetes plus 1 major ASCVD risk factor, treating to a non-HDL-C goal of <100 mg/dL (LDL-C of <70 mg/dL) is considered a therapeutic option. Test Performed at: [facility] ??[phone] NIGEL RUIZ MD 04/21/2024 2:53 PM CONCRETE LABORER 04/21/2024 2:54 PM CONCRETE LABORER Juan Landry MD LAB - CHEMISTRY STEPHON AKINS [address] [address] * PAP IMAGE-GUIDED W HPV (06/23/2023 11:24 AM CONCRETE LABORER) Case Report Gynecologic Cytology Report ? Case: [id number] ? Authorizing Provider: ??Sabra Rocha MD ?Collected: ? 06/23/2023 11:24 AM ? Ordering Location: ? [facility] - ??Received: ?06/24/2023 11:24 AM ? INSURANCE SALES REPRESENTATIVE ? First Screen: ?Maycol, Jarvis ? Specimen: [...] 10:16 AM CDT [facility] Interpretation DAIRY QUALITY ASSURANCE OFFICER Negative for intraepithelial lesion or malignancy. 06/28/2023 10:16 AM CDT [facility] Pap Footnote The Pap Smear is a screening test. False positive and false negative results occur. Negative results do not preclude abnormalities, thus clinical correlation is required. This specimen was evaluated by the ThinPrep Imaging System along with an additional manual rescreening by a checker stocker and/or pathologist. 06/28/2023 10:16 AM CDT [facility] Embedded Images 10:16 AM CDT [facility] Pathology/Cytolo gy MISCELLANEOUS SAMPLES / Unknown 06/23/2023 11:24 AM CONCRETE LABORER 06/24/2023 11:24 AM CONCRETE LABORER Sabra Rocha MD LAB - PATHOLOGY/CYTO LOGY ORDERABLES [facility] [address] [facility] [place] [address], [facility] [phone] * CHLAMYDIA + GC AMPLIFIED PROBE (10/31/2022 6:43 AM CDT) Chlamydia Amplified Probe Negative Negative 10/31/2022 10:35 PM CDT [facility] GC Amplified Probe Negative Negative 10/31/2022 10:35 PM CDT [facility] Microbiology PART OF UTERINE CERVIX / Unknown Collection / Unknown 10/31/2022 6:43 AM CDT 10/31/2022 6:52 AM CDT Narrative [facility] - 10/31/2022 10:35 PM CDT Results based on detection/no detection of ribosomal RNA by amplified method. Max De León DO LAB - MICROBIOLOGY O RDERABLES [facility] [address] [place] [address], [facility] [phone] * HEPATITIS C AB W/RFLX TO HCV RNA QN PCR (09/24/2022) Pathologist [facility] Hepatitis C Antibody NON-REACTI VE NON-REACT DAMON [facility] Signal to Cut-Off 0.16 <1.00 [facility] Comment: HCV antibody was non-reactive. There is no laboratory evidence of HCV infection. In most cases, no further action is required. However, if recent HCV exposure is suspected, a test for HCV RNA (test code 94119) is suggested. For additional information please refer to http://education.Jobydu/faq/RNL70x0 (This link is being provided for informational/ educational purposes only.) Test Performed at: [facility] [address] [place], [place] ??[phone] NIGEL RUIZ MD Blood BLOOD SPECIMEN / Unknown 09/24/2022 09/24/2022 10:57 AM CDT Kecia Orosco VISITOR USE ASSISTANT-POT PUNCHER LAB - CHEMISTR Y ORDERABLES [facility] [address] [place] [address] * HIV-1 HIV-2 ANTIBODY + HIV P24 AG PANEL (09/24/2022) Pathologist [facility] HIV Screen 4th Generation w Reflex NON-REACT [...] ?? For additional information please refer to http://education.Jobydu/faq/IEJ799 (This link is being provided for informational/ educational purposes only.) The performance of this assay has not been clinically validated in patients less than 2 years old. Test Performed at: [facility] [id number] [place] [address] ??[phone] NIGEL RUIZ MD Blood BLOOD SPECIMEN / Unknown 09/24/2022 09/24/2022 10:57 AM CDT Kecia Orosco VISITOR USE ASSISTANT-POT PUNCHER LAB - CHEMISTR Y ORDERABLES [facility] [address] [place] [address] from Last 3 Months or Most Recently [...] 4:48 AM 02/17/2020 3:35 PM Care Teams Police Shift Commander Relationship Specialty Start Date End Date Josiah Palacios MD [facility] [place] [address] PCP - General Family Medicine 01/19/23 Stephanie Lozano, MARINA Registered Nurse 12/16/16 Rei Ann, PharmD Pharmacist 01/12/17
[2024-05-19] MEDS: KETOROLAC 30 MG/ML VIAL (*BKC) IV PUSH (13:51)
--- OUTSIDE RECORDS SUMMARY | 2024-05-19 13:51 | XMS_ITS | Encounter Summary ---
Author Organization [facility] Address [address] [place] [address] Care Team Providers Care Marine Engine Machinist Apprentice Name Role Phone Josiah Palacios MD Primary Care Provider [phone] Stephanie Lozano RN Unavailable Unav ailable Rei Ann PharmD Unavailable Unavai Tesfaye Rivera MD Primary Care Provider [phone] Frida De Los Santos MD Unavailable Mariama Rudd CORRUGATOR HELPER Unavailable [phone] Josiah Palacios MD Primary Care Provider [phone] Marcel Ram MD Unavailable [phone] Encounter Details Date Type Department Care Team (Late st Contact Info) Description 07/26/2017 Lab Requisition [facility] [address] [place] [address] Luz Cardona MD [address] [place] [address] Social History Tobacco Use Types [...] CDT Office Visit [facility] - [facility] [address] [facility] [address] [place] [address] Sabra Rocha MD [address] [facility] [address] [place] [address] 08/09/2024 3:00 PM CDT Office [facility] - [place] [address] [place] [phone] Chayo Tyson PA-C [address] [facility] [place] [phone] 10/30/2024 11:30 AM CDT Office Visit [facility] - GI [address] [place] [phone] Juan Landry MD [address] [facility] 2L [place] [address] documented as of this encounter Visit Diagnoses Not on filedocumented in this encounter Additional Health Concerns Infection Onset Date Last Indicated Resolved Time COVID-19 Under Investigation 02/16/2020 02/16/2020 02/16/2020 3:58 AM CDT COVID-19 Confirmed 02/16/2020 02/16/2020 0 4:33 AM STEAM FITTER SUPERVISOR MAINTENANCE documented as of this encounter Care Teams Marine Engine Machinist Apprentice Relationship Specialty Start Date End Date Josiah Palacios MD PCP - General Family Medicine 12/30/11 12/06/21 Tesfaye Baca MD [address] [place] [address] PCP - General 12/07/21 01/18/23 Frida De Los Santos MD [address] [facility] [address] [place] [address] PCP - Attributed-[employer] 07/18/22 3 Josiah Palacios MD [address] [place] [address] PCP - General Family Medicine 01/19/23 Marcel Ram MD [address] [address] PCP - Attributed-[employer] 01/17/23 4 Stephanie Lozano, MARINA Registered Nurse 12/16/16 Rei Ann, PharmD Pharmacist 01/12/17 Mariama Rudd MSW Outpatient Cad Application Support Specialist Care Management 12/08/2211/18 documented as of this encounter
--- OUTSIDE RECORDS SUMMARY | 2024-05-19 13:51 | XMS_ITS | Encounter Summary ---
Author Organization [facility] [employer] Address [address] [facility] [place] [address] Care Team Providers Care Cloth Trimmer Hand Name Role Phone Josiah Palacios MD Primary Care Provider [phone] Mariama Rossi APRN-ACADEMIC SERVICES PROFESSIONAL Unavailable vAe Cooley RN Unavailable Unavailab le ForistalStephanie RN Unavailable Unav ailable AnglimRei PharmD Unavailable Unavai Tesfaye Rivera MD Primary Care Provider [phone] Frida De Los Santos MD Unavailable Mariama Rudd GASTROENTEROLOGIST Unavailable [phone] Josiah Palacios MD Primary Care Provider [phone] Marcel Ram MD Unavailable [phone] Reason for Visit * Reason Onset Date Comments Question 04/02/2016 Encounter Details Date Type Department Care Team (Late st Contact Info) Description 04/02/2016 Telephone [facility] - [address] [address] Biju Walker MD [facility] [place] [address] Question Social History Tobacco Use Types Packs/Day [...] dietitian consultation. Keep us informed of progress. PER SIZER * Telephone Encounter - Carolyn Helms - 04/02/2016 3:32 PM CST Megan from [facility] requesting last office note to be faxed to [phone] and to have PTPTT test added to lab testing. Patient will be in [facility] lab on 04/03/2016. PER SIZER documented in this encounter Plan of Treatment Upcoming Encounters Date Type Department Care Team (Late st Contact Info) Description 06/27/2024 10:50 AM CDT Office Visit [facility] - SYSTEMS LIBRARIAN [address] [facility] [address] [place] [address] Sabra Rocha MD [address] [facility] [address] [place] [address] 08/09/2024 3:00 PM CDT Office Visit [facility] - GI [address] [facility], [place] [phone] Chayo Tyson PA-C [address] [facility] [place] [address] 10/30/2024 11:30 AM CDT Office Visit [facility] - GI [address] [facility], [place] [address] Juan Landry MD [address] [facility] 2L [place] [address] documented as of this encounter Visit Diagnoses Not on filedocumented in this encounter Additional Health Concerns Infection Onset Date Last Indicated Resolved Time COVID-19 Under Investigation 02/16/2020 02/16/2020 02/16/2020 3:58 AM CDT COVID-19 Confirmed 02/16/2020 02/16/2020 0 4:33 AM WRAPPER SIZER documented as of this encounter Care Teams Cloth Trimmer Hand Relationship Specialty Start Date End Date Josiah Palacios MD PCP - General Family Medicine 12/30/11 12/06/21 Tesfaye Baca MD [address] [place] [address] PCP - General 12/07/21 01/18/23 Frida De Los Santos MD [address] [facility] [address] [place] [address] PCP - Attributed-Cigna 07/18/22 3 Josiah Palacios MD [address] [place] [address] PCP - General Family Medicine 01/19/23 Marcel Ram MD [address] [facility] 400 [place] [address] PCP - Attributed-Cigna 01/17/23 4 Mariama Rossi, SEAPORT PLANNING MANAGER-ACADEMIC SERVICES PROFESSIONAL [address] [place] [address] Nurse Practitioner Nurse Practitioner 09/30/16 12/15/16 Ave Cooley, RN Registered Nurse 09/30/16 12/15/16 Stephanie Lozano, RN Registered Nurse 12/16/16 Rei Ann, PharmD Pharmacist 01/12/17 Mariama Rudd, YANG Outpatient Precision Machining Instructor Care Management 12/08/22 12/10/22 documented as of this encounter
--- OUTSIDE RECORDS SUMMARY | 2024-05-19 13:51 | XMS_ITS ---
Author Organization [facility] Health Address [address] [facility] [place] [address] Care Team Providers Care Radio/Tv Technician Name Role Phone Stephanie Lozano RN Unavailable Unav ailable Rei Ann PharmD Unavailable Unavai Josiah Russell MD Primary Care Provider [phone] Active Problems Patient Care Coordination No te Formatting of this note migh t be different from the original. Passenger Car Conductor Stephanie Lozano [phone] Tacrolimus Target Level 6-8 Problem Noted Date [...] vaginal yeast infection Neuro/psych: Advanced from needing [place] q6h for pain to using Tylenol prn [...] PLAN* Plan Start Date:11/13/2022 Plan Provider:Kecia Orosco APRN-DISTRIBUTION CENTER ASSISTANT Linked Problems History of anemia Treatment Medications No medications scheduled. Past Plans No past plan information found. Radiation Treatments * No radiation treatments are documented for this patient in [facility]. Treatments may have been administered in [...] - End tidal CO2 monitoring while on FERMENTATION MANAGER ?? Neuro - Fentanyl FERMENTATION MANAGER - Basal 10mcg/hr, FERMENTATION MANAGER dose 15mcg - Scheduled Toradol 30mg q6h [...] miralax daily for bowel regimen while on FERMENTATION MANAGER - Continue prednisone FEN: - Continue IV [...] - End tidal CO2 monitoring while on FERMENTATION MANAGER Neuro: significant diffuse myalgias throughout that are improved on FERMENTATION MANAGER and Toradol - Fentanyl FERMENTATION MANAGER - Basal 10mcg/hr, FERMENTATION MANAGER dose 15mcg - Scheduled Toradol 30mg q6h [...] miralax daily for bowel regimen while on FERMENTATION MANAGER - Continue prednisone Assessment & Plan (07/28/2017 [...] - End tidal CO2 monitoring while on FERMENTATION MANAGER Neuro: significant diffuse myalgias throughout, received fentanyl in ED. - Fentanyl FERMENTATION MANAGER - 1x dose of Toradol - Melatonin [...] miralax daily for bowel regimen while on FERMENTATION MANAGER - Continue prednisone Assessment & Plan (07/27/2017 [...] some element of liver transplant rejection. Saw Airplane Gas Tank Liner Assembler in November--not recommended to have another follow up until . Never had repeat liver ultrasound performed in October. Itching complaint could be a side effect of Tacrolimus which is now being used TID. Also with bleeding gums. [facility] Recommendations: 1. checking coags & bile acids 2. Should have liver ultrasound performed and report forwarded to Airplane Gas Tank Liner Assembler. 3. Previously counseled that it was acceptable [...] 03/21/2017 Assessment & Plan (03/21/2017 7:22 PM MUD MIXER): Margoth is an 17 yo F with [...] 09/17/2019 Assessment & Plan (03/20/2017 10:55 AM MUD MIXER): Assessment: Margoth is an 17-year-old female with [...] with outpatient GI on 03/26 - continue SENIOR PROJECT LEADER/TEAM LEAD medications ASA 81 mg PO daily Cholecalciferol 2000 units PO qd Ferrous sulfate 325 mg PO BID Hydroxyzine 25 mg PO qhs Magnesium oxide 400 mg qd Mycophenolate 500 mg PO BID Assessment & Plan (03/19/2017 11:23 AM MUD MIXER): Assessment: Margoth is an 17-year-old female with [...] esomeprazole to 40 mg daily - continue SENIOR PROJECT LEADER/TEAM LEAD medications ASA 81 mg PO daily Cholecalciferol 2000 units PO qd Ferrous sulfate 325 mg PO BID Hydroxyzine 25 mg PO qhs Magnesium oxide 400 mg qd Tacrolimus 1.5 mg qAM, 2 mg qhs Mycophenolate 500 mg PO BID Assessment & Plan (03/18/2017 2:09 PM MUD MIXER): Assessment: Margoth is an 17-year-old female with [...] - daily liver function panels - continue SENIOR PROJECT LEADER/TEAM LEAD medications ASA 81 mg PO daily Cholecalciferol 2000 units PO qd Ferrous sulfate 325 mg PO BID Hydroxyzine 25 mg PO qhs Magnesium oxide 400 mg qd Tacrolimus 1.5 mg qAM, 2 mg qhs Mycophenolate 500 mg PO BID Assessment & Plan (03/18/2017 1:46 PM MUD MIXER): Assessment: 17 y/o female with history of [...] QPM Assessment & Plan (03/17/2017 2:01 PM MUD MIXER): Assessment: 17 y/o female with history of [...] QPM Assessment & Plan (03/17/2017 1:23 PM MUD MIXER): Assessment: Margoth is an 17-year-old female with [...] with the previous steroid treatment - continue SENIOR PROJECT LEADER/TEAM LEAD medications ASA 81 mg PO daily Cholecalciferol 2000 units PO qd Ferrous sulfate 325 mg PO BID Hydroxyzine 25 mg PO qhs Magnesium oxide 400 mg qd Tacrolimus 1.5 mg qAM, 2 mg qhs Mycophenolate 500 mg PO BID Assessment & Plan (03/16/2017 2:07 PM MUD MIXER): Assessment: 17 y/o female with history of [...] QPM Assessment & Plan (03/16/2017 10:50 AM MUD MIXER): Assessment: Margoth is an 17-year-old female with [...] completed Assessment & Plan (03/15/2017 3:28 PM MUD MIXER): Assessment: 17 y/o female with history of [...] 03/08/201701/17 Assessment & Plan (04/21/2017 3:25 PM MUD MIXER): Chronic daily headaches (mixed pattern of migraines [...] - transition to adult [facility] ([facility] 13. Call in 4-6 weeks with update regarding headaches, sooner for concerns Assessment & Plan (03/09/2017 11:32 AM MUD MIXER): Assessment: Has not had a headache over [...] 03/15 Assessment & Plan (03/08/2017 10:50 AM MUD MIXER): Assessment: Margoth has a history of migraine [...] pain Assessment & Plan (03/08/2017 1:03 AM MUD MIXER): Assessment: Margoth has a history of migraine [...] 01/18/2020 Assessment & Plan (03/09/2017 11:36 AM MUD MIXER): Assessment: The patient's elevated liver enzymes are [...] the hydroxyzine for pruritis 2. Continue with SENIOR PROJECT LEADER/TEAM LEAD anti-rejection medications, tacrolimus, mycophenolate, ferrous sulfate, ASA, magnesium oxide, and vitamin D 3. Follow-up liver panel on Wednesday, 03/13 at [facility] Assessment & Plan (03/08/2017 10:46 AM MUD MIXER): Assessment: Margoth Aguila is a 16 y.o. [...] ASA Assessment & Plan (03/08/2017 1:00 AM MUD MIXER): Assessment: Margoth Aguila is a 16 y.o. [...] 01/18/2020 Assessment & Plan (05/20/2017 9:54 PM MUD MIXER): Assessment: Margoth is an 17 year old [...] BID Assessment & Plan (05/20/2017 2:25 PM MUD MIXER): Assessment: Margoth Aguila is a 17 yo [...] meds Assessment & Plan (05/19/2017 1:52 PM MUD MIXER): Assessment: Margoth is an 17 year old [...] BID Assessment & Plan (05/18/2017 11:19 AM MUD MIXER): Assessment: Margoth is an 17 year old [...] BID Assessment & Plan (05/17/2017 1:44 PM MUD MIXER): Assessment: Margoth is an 17 year old [...] diet Assessment & Plan (04/09/2013 6:56 PM MUD MIXER): Assessment: Margoth Aguila is a 13 yo [...] weeks Assessment & Plan (04/08/2013 10:01 PM MUD MIXER): Assessment: Margoth Aguila is a 13 yo [...] weeks Assessment & Plan (03/19/2013 12:21 PM MUD MIXER): Assessment: Margoth is a 13yo with h/o [...] daily Assessment & Plan (03/19/2013 11:08 AM MUD MIXER): Assessment: Margoth is a 13yo with h/o [...] daily Assessment & Plan (03/18/2013 10:34 AM MUD MIXER): Assessment: Margoth is a 13 yo s/p [...] to hold PRBC and FFP for procedure -education and outreach coordinator Gil are aware and will coordinate with [place] -IP consult to pastoral care -IP consult to social media strategist -education and outreach coordinator Cassia and Anthony are aware and will coordinate with OR -IP consult to pastoral care -IP consult to social media strategist [employer] Patient 02/11/2012 0 Overview (02/11/2012): Simona Mcgee MA,CCLS is [facility] Well Treatment Offsider [phone]. HCC (hepatocellular carcinoma) 01/29/2012 07/16/2017 Overview (02/12/2012): [...] S/p chemo-embolization on 01/29/12 for HCC. Dilaudid FERMENTATION MANAGER (due to extreme pruritis with morphine) not [...]
--- OUTSIDE RECORDS SUMMARY | 2024-05-19 13:51 | XMS_ITS ---
Author Organization [facility] Health Address [address] [facility] [place] [address] Care Team Providers Care Adult High School Instructor Name Role Phone Stephanie Lozano RN Unavailable Unav ailRei Richard PharmD Unavailable Unavai Josiah Russell MD Primary Care Provider [phone] Transplant Episode Liver Recipient [facility] ([place], [place]) - [facility] Transplanted on 08/26/2012 Marked [...]
--- OUTSIDE RECORDS SUMMARY | 2024-05-19 13:51 | XMS_ITS | Encounter Summary ---
Author Organization [facility] [employer] Address [address] [place] [address] Care Team Providers Care Certified Fraud Examiner Name Role Phone Josiah Palacios MD Primary Care Provider [phone] Mariama Rossi [facility] Unavailable Ave Cooley RN Unavailable Unavailab le ForistalStephanie RN Unavailable Unav ailable AnglimRei PharmD Unavailable Unavai Tesfaye Rivera MD Primary Care Provider [phone] Frida De Los Santos MD Unavailable Mariama Rudd PREPRINT ANALYST Unavailable [phone] Josiah Palacios MD Primary Care Provider [phone] Marcel Ram MD Unavailable [phone] Reason for Visit * Reason Onset Date Comments MEDICATION REFILL 01/16/2014 Encounter Details Date Type Department Care Team (Late st Contact Info) Description 01/16/2014 Telephone [facility] Pediatric[facility] - [address] [address] Biju Walker MD [facility]5 [place] [address] MEDICATION REFILL Social History Tobacco Use Types [...] CDT Office Visit [facility] - ASSURANCE MANAGER INSURANCE [address] [facility] [address] [place] [address] Sabra Rocha MD [address] [facility] [address] [place] [address] 08/09/2024 3:00 PM CDT Office Visit [facility] - GI [address] [place] [phone] Chayo Tyson PA-C [address] [facility] DEPT [place] [phone] 10/30/2024 11:30 AM CDT Office Visit [facility] - GI [address] [place] [phone] Juan Landry MD [address] [facility] 2L [place] [address] documented as of this encounter Visit Diagnoses Not on filedocumented in this encounter Additional Health Concerns Infection Onset Date Last Indicated Resolved Time COVID-19 Under Investigation 02/16/2020 02/16/2020 02/16/2020 3:58 AM CDT COVID-19 Confirmed 02/16/2020 02/16/2020 0 4:33 AM DRUG ABUSE RESISTANCE EDUCATION OFFICER documented as of this encounter Care Teams Certified Fraud Examiner Relationship Specialty Start Date End Date Josiah Palacios MD PCP - General Family Medicine 12/30/11 12/06/21 Tesfaye Bcaa MD [address] [place] [address] PCP - General 12/07/21 01/18/23 Frida De Los Santos MD [address] [facility] [address] [place] [address] PCP - Attributed-Cigna 07/18/22 3 Josiah Palacios MD [address] [facility] [place] [address] PCP - General Family Medicine 01/19/23 Marcel Ram MD [address] [facility] 400 [place] [address] PCP - Attributed-Cigna 01/17/23 4 aMriama Rossi, STRATEGIC PROCUREMENT MANAGER-PRECISION INSTRUMENT AND TOOL MAKER [address] [place] [address] Nurse Practitioner Nurse Practitioner 09/30/16 12/15/16 Ave Cooley RN Registered Nurse 09/30/16 12/15/16 Stepahnie Lozano, RN Registered Nurse 12/16/16 Rei Ann, PharmD Pharmacist 01/12/17 Mariama Rudd, YANG Outpatient Theatrical Performer Care Management 12/08/22 12/10/22 documented as of this encounter
--- OUTSIDE RECORDS SUMMARY | 2024-05-19 13:51 | XMS_ITS | Encounter Summary ---
Author Organization [facility] Address [address] [place] [address] Care Team Providers Care Housekeeper Child Care Name Role Phone Josiah Palacios MD Primary Care Provider [phone] Mariama Rossi STRUCTURAL SHOP HELPER-FOREST MANAGEMENT PROFESSOR Unavailable Ave Cooley RN Unavailable Unavailab le ForistalStephanie RN Unavailable Unav ailable AnglimRei PharmD Unavailable Unavai Tesfaye Rivera MD Primary Care Provider [phone] Frida De Los Santos MD Unavailable Mariama Rudd EFFICIENCY CLERK Unavailable [phone] Josiah Palacios MD Primary Care Provider [phone] Marcel Ram MD Unavailable [phone] Encounter Details Date Type Department Care Team (Late st Contact Info) Description 06/06/2012 Telephone [facility] at [address] [address] Neetu Chaney, RN Social History [...] CDT Office Visit [facility] - JOURNEYMAN PRESS OPERATOR [address] [facility] [address] [place] [address] Sabra Rocha MD [address] [facility] [address] [place] [address] 08/09/2024 3:00 PM CDT Office Visit [facility] - GI [address] [place] [phone] Chayo Tyson PA-C [address] [facility] [place] [address] 10/30/2024 11:30 AM CDT Office Visit [facility] - GI [address] [place] [phone] Juan Landry MD [address] [facility] 2L [place] [address] documented as of this encounter Visit Diagnoses Not on filedocumented in this encounter Additional Health Concerns Infection Onset Date Last Indicated Resolved Time COVID-19 Under Investigation 02/16/2020 02/16/2020 02/16/2020 3:58 AM CDT COVID-19 Confirmed 02/16/2020 02/16/2020 0 4:33 AM APPLIER documented as of this encounter Care Teams Housekeeper Child Care Relationship Specialty Start Date End Date Josiah Palacios MD PCP - General Family Medicine 12/30/11 12/06/21 Tesfaye Baca MD [address] [place] [address] PCP - General 12/07/21 01/18/23 Frida De Los Santos MD [address] [facility] [address] [place] [address] PCP - Attributed-Cigna 07/18/22 3 Josiah Palacios MD [address] [place] [address] PCP - General Family Medicine 01/19/23 Marcel Ram MD [address] [facility] [address] [place] [address] PCP - Attributed-Cigna 01/17/23 4 Mariama Rossi, STRUCTURAL SHOP HELPER-FOREST MANAGEMENT PROFESSOR [address] [place] [address] Nurse Practitioner Nurse Practitioner 09/30/16 12/15/16 Ave Cooley, RN Registered Nurse 09/30/16 12/15/16 Stephanie Lozano, RN Registered Nurse 12/16/16 Rei Ann, PharmD Pharmacist 01/12/17 Mariama Rudd MSW Outpatient District Associate Judge Care Management 12/08/22 12/10/22 documented as of this encounter
--- OUTSIDE RECORDS SUMMARY | 2024-05-19 13:51 | XMS_ITS | Encounter Summary ---
Author Organization [facility] [employer] Address [address] [facility] [place] [address] Care Team Providers Care Communication Specialist Name Role Phone Josiah Palacios MD Primary Care Provider [phone] Mariama Rossi APRN-CARTOGRAPHIC DESIGNER Unavailable Ave Cooley RN Unavailable Unavailab le ForistalStephanie RN Unavailable Unav ailable AnglimRei PharmD Unavailable Unavai Tesfaye Rivera MD Primary Care Provider [phone] Frida De Los Santos MD Unavailable Mariama Rudd RADIATION THERAPY TECHNOLOGIST Unavailable [phone] Josiah Palacios MD Primary Care Provider [phone] Marcel Ram MD Unavailable [phone] Reason for Visit * Reason Onset Date Comments Question 08/29/2015 Encounter Details Date Type Department Care Team (Late st Contact Info) Description 08/29/2015 Telephone [facility] Pediatric[facility] - [address] [address] Biju Walker MD [facility] [place] [address] Question Social History Tobacco Use Types Packs/Day [...] for Prograf 0.5 mg. Please fax to [phone] or call in [phone]. documented in this encounter Plan of Treatment Upcoming Encounters Date Type Department Care Team (Late st Contact Info) Description 06/27/2024 10:50 AM CDT Office Visit [facility] - HANDICRAFTS TEACHER [address] [facility] [address] [place] [address] Sabra Rocha MD [address] [facility] [address] [place] [address] 08/09/2024 3:00 PM CDT Office Visit [facility] - GI [address] [place] [phone] Chayo Tyson PA-C [address] [facility] [place] [phone] 10/30/2024 11:30 AM CDT Office Visit [facility] - GI [address] [place] [phone] Juan Landry MD [address] [facility] 2L DIV [place] [address] documented as of this encounter Visit Diagnoses Not on filedocumented in this encounter Additional Health Concerns Infection Onset Date Last Indicated Resolved Time COVID-19 Under Investigation 02/16/2020 02/16/2020 02/16/2020 3:58 AM CDT COVID-19 Confirmed 02/16/2020 02/16/2020 0 4:33 AM CURRICULUM ASSISTANT PRINCIPAL documented as of this encounter Care Teams Communication Specialist Relationship Specialty Start Date End Date Josiah Palacios MD PCP - General Family Medicine 12/30/11 12/06/21 Tesfaye Baca MD [address] [place] [address] PCP - General 12/07/21 01/18/23 Frida De Los Santos MD [address] [place] [address] 290 [place] [address] PCP - Attributed-Cigna 07/18/22 3 Josiah Palacios MD [address] [place] [address] PCP - General Family Medicine 01/19/23 Marcel Ram MD [address] [address] PCP - Attributed-Cigna 01/17/23 4 Mariama Rossi, HEARING AID FITTER-CARTOGRAPHIC DESIGNER [address] [place] [address] Nurse Practitioner Nurse Practitioner 09/30/16 12/15/16 Ave Cooley, RN Registered Nurse 09/30/16 12/15/16 Stephanie Lozano, RN Registered Nurse 12/16/16 Rei Ann, PharmD Pharmacist 01/12/17 Mariama Rudd MSW Outpatient Player Development Executive Care Management 12/08/22 12/10/22 documented as of this encounter
--- OUTSIDE RECORDS SUMMARY | 2024-05-19 13:53 | XMS_ITS | Clinical Summary ---
Author Organization [facility] Address [address] [place] [address] Care Team Providers Care Halal Butcher Name Role Phone Stephanie Lozano RN Unavailable Rei Smith PharmD Unavailable Unavai Josiah Russell MD Primary Care Provider [phone] Source Comments [facility],non-owned Affiliates and Associated Physician Practices is amultiple site organization consisting of ambulatory clinics and hospital sitesin [place], [place], [place] and [place]. This disclosure is being madepursuant to the Care Everywhere program and may not contain all information available regarding this patient. Last updated 18.[facility] Active DSP Allergies Active Allergy Reactions Criticality Noted Date [...] migh t be different from the original. Manager Of Development Stephanie Lozano [phone] Tacrolimus Target Level 6-8 Problem Noted Date [...] vaginal yeast infection Neuro/psych: Advanced from needing [place] q6h for pain to using Tylenol prn [...] - End tidal CO2 monitoring while on HOME INSURANCE AGENT ?? Neuro - Fentanyl HOME INSURANCE AGENT - Basal 10mcg/hr, HOME INSURANCE AGENT dose 15mcg - Scheduled Toradol 30mg q6h [...] miralax daily for bowel regimen while on HOME INSURANCE AGENT - Continue prednisone FEN: - Continue IV [...] - End tidal CO2 monitoring while on HOME INSURANCE AGENT Neuro: significant diffuse myalgias throughout that are improved on HOME INSURANCE AGENT and Toradol - Fentanyl HOME INSURANCE AGENT - Basal 10mcg/hr, HOME INSURANCE AGENT dose 15mcg - Scheduled Toradol 30mg q6h [...] miralax daily for bowel regimen while on HOME INSURANCE AGENT - Continue prednisone Assessment & Plan (07/28/2017 [...] - End tidal CO2 monitoring while on HOME INSURANCE AGENT Neuro: significant diffuse myalgias throughout, received fentanyl in ED. - Fentanyl HOME INSURANCE AGENT - 1x dose of Toradol - Melatonin [...] miralax daily for bowel regimen while on HOME INSURANCE AGENT - Continue prednisone Assessment & Plan (07/27/2017 [...] some element of liver transplant rejection. Saw Business Services Director in November--not recommended to have another follow up until . Never had repeat liver ultrasound performed in October. Itching complaint could be a side effect of Tacrolimus which is now being used TID. Also with bleeding gums. [facility] Recommendations: 1. checking coags & bile acids 2. Should have liver ultrasound performed and report forwarded to Business Services Director. 3. Previously counseled that it was acceptable [...] 03/21/2017 Assessment & Plan (03/21/2017 7:22 PM OUTSIDE MACHINIST): Margoth is an 17 yo F with [...] 09/17/2019 Assessment & Plan (03/20/2017 10:55 AM OUTSIDE MACHINIST): Assessment: Margoth is an 17-year-old female with [...] with outpatient GI on 03/26 - continue INSTRUCTOR [employer] TROLLEY AND TAXI medications ASA 81 mg PO daily Cholecalciferol 2000 units PO qd Ferrous sulfate 325 mg PO BID Hydroxyzine 25 mg PO qhs Magnesium oxide 400 mg qd Mycophenolate 500 mg PO BID Assessment & Plan (03/19/2017 11:23 AM OUTSIDE MACHINIST): Assessment: Margoth is an 17-year-old female with [...] esomeprazole to 40 mg daily - continue INSTRUCTOR [employer] TROLLEY AND TAXI medications ASA 81 mg PO daily Cholecalciferol 2000 units PO qd Ferrous sulfate 325 mg PO BID Hydroxyzine 25 mg PO qhs Magnesium oxide 400 mg qd Tacrolimus 1.5 mg qAM, 2 mg qhs Mycophenolate 500 mg PO BID Assessment & Plan (03/18/2017 2:09 PM OUTSIDE MACHINIST): Assessment: Margoth is an 17-year-old female with [...] - daily liver function panels - continue [employer]CTOR [employer] TROLLEY AND TAXI medications ASA 81 mg PO daily Cholecalciferol 2000 units PO qd Ferrous sulfate 325 mg PO BID Hydroxyzine 25 mg PO qhs Magnesium oxide 400 mg qd Tacrolimus 1.5 mg qAM, 2 mg qhs Mycophenolate 500 mg PO BID Assessment & Plan (03/18/2017 1:46 PM OUTSIDE MACHINIST): Assessment: 17 y/o female with history of [...] QPM Assessment & Plan (03/17/2017 2:01 PM OUTSIDE MACHINIST): Assessment: 17 y/o female with history of [...] QPM Assessment & Plan (03/17/2017 1:23 PM OUTSIDE MACHINIST): Assessment: Margoth is an 17-year-old female with [...] with the previous steroid treatment - continue [employer] TROLLEY AND TAXI medications ASA 81 mg PO daily Cholecalciferol 2000 units PO qd Ferrous sulfate 325 mg PO BID Hydroxyzine 25 mg PO qhs Magnesium oxide 400 mg qd Tacrolimus 1.5 mg qAM, 2 mg qhs Mycophenolate 500 mg PO BID Assessment & Plan (03/16/2017 2:07 PM OUTSIDE MACHINIST): Assessment: 17 y/o female with history of [...] QPM Assessment & Plan (03/16/2017 10:50 AM OUTSIDE MACHINIST): Assessment: Margoth is an 17-year-old female with [...] completed Assessment & Plan (03/15/2017 3:28 PM OUTSIDE MACHINIST): Assessment: 17 y/o female with history of [...] 03/08/201701/17 Assessment & Plan (04/21/2017 3:25 PM OUTSIDE MACHINIST): Chronic daily headaches (mixed pattern of migraines [...] - transition to adult neurology (either at [facility] or elsewhere). 13. Call in 4-6 weeks with update regarding headaches, sooner for concerns Assessment & Plan (03/09/2017 11:32 AM OUTSIDE MACHINIST): Assessment: Has not had a headache over [...] 03/15 Assessment & Plan (03/08/2017 10:50 AM OUTSIDE MACHINIST): Assessment: Margoth has a history of migraine [...] pain Assessment & Plan (03/08/2017 1:03 AM OUTSIDE MACHINIST): Assessment: Margoth has a history of migraine [...] 01/18/2020 Assessment & Plan (03/09/2017 11:36 AM OUTSIDE MACHINIST): Assessment: The patient's elevated liver enzymes are [...] the hydroxyzine for pruritis 2. Continue with IN[employer] TROLLEY AND TAXI anti-rejection medications, tacrolimus, mycophenolate, ferrous sulfate, ASA, magnesium oxide, and vitamin D 3. Follow-up liver panel on Wednesday, 03/13 at [facility] Assessment & Plan (03/08/2017 10:46 AM OUTSIDE MACHINIST): Assessment: Margoth Prather is a 16 y.o. [...] ASA Assessment & Plan (03/08/2017 1:00 AM OUTSIDE MACHINIST): Assessment: Margoth Prather is a 16 y.o. [...] 01/18/2020 Assessment & Plan (05/20/2017 9:54 PM OUTSIDE MACHINIST): Assessment: Margoth is an 17 year old [...] BID Assessment & Plan (05/20/2017 2:25 PM OUTSIDE MACHINIST): Assessment: Margoth Prather is a 17 yo [...] meds Assessment & Plan (05/19/2017 1:52 PM OUTSIDE MACHINIST): Assessment: Margoth is an 17 year old [...] BID Assessment & Plan (05/18/2017 11:19 AM OUTSIDE MACHINIST): Assessment: Margoth is an 17 year old [...] BID Assessment & Plan (05/17/2017 1:44 PM OUTSIDE MACHINIST): Assessment: Margoth is an 17 year old [...] diet Assessment & Plan (04/09/2013 6:56 PM OUTSIDE MACHINIST): Assessment: Margoth Prather is a 13 yo [...] weeks Assessment & Plan (04/08/2013 10:01 PM OUTSIDE MACHINIST): Assessment: Margoth Prather is a 13 yo [...] weeks Assessment & Plan (03/19/2013 12:21 PM OUTSIDE MACHINIST): Assessment: Margoth is a 13yo with h/o [...] daily Assessment & Plan (03/19/2013 11:08 AM OUTSIDE MACHINIST): Assessment: Margoth is a 13yo with h/o [...] daily Assessment & Plan (03/18/2013 10:34 AM OUTSIDE MACHINIST): Assessment: Margoth is a 13 yo s/p [...] to hold PRBC and FFP for procedure -quality improvement coordinator (rn) Gil are aware and will coordinate with [place] -IP consult to pastoral care -IP consult to health care social worker -quality improvement coordinator (rn) Gil are aware and will coordinate with [place] -IP consult to pastoral care -IP consult to health care social worker Footprints Patient 02/11/2012 0 Overview (02/11/2012): Simona Mcgee MA,CCLS is [facility] Nanoelectronics Engineer [phone]. HCC (hepatocellular carcinoma) 01/29/2012 07/16/2017 Overview (02/12/2012): [...] S/p chemo-embolization on 01/29/12 for HCC. Dilaudid HOME INSURANCE AGENT (due to extreme pruritis with morphine) not [...] Department Care Team Description 05/02/2024 12:00 PM OUTSIDE MACHINIST Office Visit [facility] - [facility] [address] [place] [phone] Juan Landry MD Liver transplant status (HCC) (Primary Dx) 05/02/2024 Travel 04/21/2024 Orders Only [facility] [address] [place] [address] Juan Landry MD 04/21/2024 Travel 04/13/2024 [place] [facility] [place] [address] [place] [phone] Juan Landry MD Refill Request 02/23/2024 Travel 02/23/2024 Telephone [facility] [address] [place] [phone] Oleksandr Lau Future Appointment (I reached out to try and reschedule the appointment) 02/21/2024 Telephone [facility] - [address] [place] [phone] Pearl Brennan, RN Appointment 02/17/2024 Refill [facility] - [address] [place] [phone] Juan Landry MD Refill Request from Last 3 Months Immunizations Name Administration Dates Next Due INFLUENZA VACCINE, TRIV. (AF LURIA, FLUZONE TRIVALENT; 6MO+) (IIV3) 02/09/2007 [employer] primary monoval ent 12+ yr 0.3mL Purple [...] Recorded Patient Health Questionnaire-2 Score 0 12/15/2023 [facility] Serafina of Occupat ional Health - Occupational Stress [...] place to sleep or slept in a fdc (including now)? No 12/05/2022 [place] Depression Scale Answer Date Recorded [place] Depression Scale Total 6 01/19/2023 The thought [...] Comments Blood Pressure 121/75 05/02/2024 11:44 AM OUTSIDE MACHINIST Pulse 88 05/02/2024 11:44 AM OUTSIDE MACHINIST Temperature 36.5 ??C (97.7 ??F) 05/02/2024 11:[address] Respiratory Rate 18 11/08/2023 8:52 AM CDT Oxygen Saturation 99% 05/02/2024 11:44 AM OUTSIDE MACHINIST Inhaled Oxygen Concentration 100% 07/14/2017 1 2:45 PM CDT Weight 71.9 kg (158 lb 9.6 oz) 05/02/2024 11:44 AM OUTSIDE MACHINIST Height 167.6 cm (5' 6 ) 05/02/2024 11:44 AM OUTSIDE MACHINIST Body Mass Index 25.6 05/02/2024 11:44 AM OUTSIDE MACHINIST Plan of Treatment Upcoming Encounters Date Type Department Care Team (Late st Contact Info) Description 06/27/2024 10:50 AM CDT Office Visit [facility] - LOGISTICS INTERN [address] [facility] [address] [facility] [address] [place] [address] Sabra Rocha MD [address] [place] [address] 08/09/2024 3:00 PM CDT Office Visit [facility] - GI [address] [facility], [place] [phone] Chayo Tyson PA-C [address] [facility] [place] [phone] 10/30/2024 11:30 AM CDT Office Visit [facility] - GI [address] [place] [phone] Juan Landry MD [address] [facility] 2L [place] [address] Health Maintenance Due Date Last Done Comments [...] Management General On track( 025 11:50 AM OUTSIDE MACHINIST) No Alida Harp RN Note: Expected end date:ongoing Interventions: Take all medications as prescribed Let your doctor know right away about any changes in your medications Make sure to request a refill of your medication at least one week prior to your last dose Procedures Procedure Name Priority Date/Time Associated Diagnosis Comments TACROLIMUS LEVEL 04/21/2024 2:53 PM OUTSIDE MACHINIST HEMOGLOBIN A1C 04/21/2024 2:53 PM OUTSIDE MACHINIST CBC W/O DIFFERENTIAL 04/21/2024 2:53 PM OUTSIDE MACHINIST HEPATIC FUNCTION PANEL 04/21/2024 2:53 PM OUTSIDE MACHINIST BASIC METABOLIC PANEL (CALCIUM TOTAL) 04/21/2024 2:53 PM OUTSIDE MACHINIST LIPID PROFILE 04/21/2024 2:53 PM OUTSIDE MACHINIST PAP IMAGE-GUIDED W HPV Routine 06/23/2023 11:24 AM OUTSIDE MACHINIST Encounter for gynecological examination without abnormal finding [...] Results * TACROLIMUS LEVEL (04/21/2024 2:53 PM OUTSIDE MACHINIST) Tacrolimus 5.2 mcg/L [facility] Comment: No definitive therapeutic or toxic ranges have been established. Optimal blood drug levels are influenced by type of transplant, patient response, time post- transplant, co-administration of other drugs, and drug formulation. The following trough range is a suggested guideline: 5.0-20.0 mcg/L. Test Performed at: [facility] [address] [place] [address] ??[phone] NIGEL RUIZ MD 04/21/2024 2:53 PM OUTSIDE MACHINIST 04/21/2024 2:54 PM OUTSIDE MACHINIST Juan Landry MD LAB - THERAPEUTIC DR MARTINEZ MONITORING ORDERABLES [address] [address] * HEMOGLOBIN A1C (04/21/2024 2:53 PM OUTSIDE MACHINIST) Hemoglobin A1c <4.2 <5.7 % of total [...] diagnosis of diabetes in children. According to [place] Diabetes Association (ADA) guidelines, hemoglobin A1c <7.0% represents optimal control in non- diabetic patients. Different metrics may apply to specific patient populations. Standards of Medical Care in Diabetes(ADA). ?? Test Performed at: [facility] ??[phone] NIGEL RUIZ MD 04/21/2024 2:53 PM OUTSIDE MACHINIST 04/21/2024 2:54 PM OUTSIDE MACHINIST Juan Landry MD LAB - CHEMISTRY STEPHON AKINS Performing Organization Address [facility] de Phone Number [address] [address] * (ABNORMAL) CBC W/O DIFFERENTIAL (04/21/2024 2:53 PM OUTSIDE MACHINIST) Pathologist [facility] White Blood Cell Count 3.7(L) 3.8 - [...] 12.5 fL [facility] Comment: Test Performed at: [facility] ??[phone] NIGEL RUIZ MD 04/21/2024 2:53 PM OUTSIDE MACHINIST 04/21/2024 2:54 PM OUTSIDE MACHINIST Juan Landry MD LAB - HEMATOLOGY ORD LOVE Performing Organization Address [facility] Co de Phone Number [address] [address] * (ABNORMAL) BASIC METABOLIC PANEL (CALCIUM TOTAL) (04/21/2024 2:53 PM OUTSIDE MACHINIST) Pathologist [facility] Glucose 101(H) 65 - 99 mg/dL [facility] [...] 10.2 mg/dL [facility] Comment: Test Performed at: [facility] ??[phone] NIGEL RUIZ MD 04/21/2024 2:53 PM OUTSIDE MACHINIST 04/21/2024 2:54 PM OUTSIDE MACHINIST Juan Landry MD LAB - CHEMISTRY STEPHON AKINS [address] [address] * (ABNORMAL) HEPATIC FUNCTION PANEL (04/21/2024 2:53 PM OUTSIDE MACHINIST) Protein Total 6.3 6.1 - 8.1 g/dL [...] 29 U/L [facility] Comment: Test Performed at: [facility] ??[phone] NIGEL RUIZ MD 04/21/2024 2:53 PM OUTSIDE MACHINIST 04/21/2024 2:54 PM OUTSIDE MACHINIST Juan Landry MD LAB - CHEMISTRY STEPHON AKINS Performing Organization Address [facility] de Phone Number [address] [address] * LIPID PROFILE (04/21/2024 2:53 PM OUTSIDE MACHINIST) Cholesterol 140 <200 mg/dL [facility] HDL Cholesterol [...] LDL-C. Jorge WOODALL et al. DANIELLE. 2013;310(19): 4380-3776 (http://education.Leonar3Do.MetaPack/faq/CHK241) CHOL/HDLC RATIO 2.1 <5.0 (calc) [facility] Non HDL Cholesterol 74 <130 mg/dL (calc) [facility] Comment: For patients with diabetes plus 1 major ASCVD risk factor, treating to a non-HDL-C goal of <100 mg/dL (LDL-C of <70 mg/dL) is considered a therapeutic option. Test Performed at: [facility] ??[phone] NIGEL RUIZ MD 04/21/2024 2:53 PM OUTSIDE MACHINIST 04/21/2024 2:54 PM OUTSIDE MACHINIST Juan Landry MD LAB - CHEMISTRY STEPHON AKINS Performing Organization Address [facility] Co de Phone Number [address] [address] * PAP IMAGE-GUIDED W HPV (06/23/2023 11:24 AM OUTSIDE MACHINIST) Case Report Gynecologic Cytology Report ? Case: [id number] ? Authorizing Provider: ??Aj, Sabra, MD ?Collected: ? 06/23/2023 11:24 AM ? Ordering Location: ? [facility] - ??Received: ?06/24/2023 11:24 AM ? LOGISTICS INTERN ? First Screen: ?Maycol, Jarvis ? Specimen: [...] lesion or malignancy. 06/28/2023 10:16 AM CDT [facility] Interpretation SR. DIRECTOR PRODUCT MANAGEMENT Negative for intraepithelial lesion or malignancy. 06/28/2023 10:16 AM CDT [facility] Pap Footnote The Pap Smear is a screening test. False positive and false negative results occur. Negative results do not preclude abnormalities, thus clinical correlation is required. This specimen was evaluated by the ThinPrep Imaging System along with an additional manual rescreening by a skill labor and/or pathologist. 06/28/2023 10:16 AM CDT [facility] Embedded Images 10:16 AM CDT [facility] Pathology/Cytolo gy MISCELLANEOUS SAMPLES / Unknown 06/23/2023 11:24 AM OUTSIDE MACHINIST 06/24/2023 11:24 AM OUTSIDE MACHINIST Sabra Rocha MD LAB - PATHOLOGY/CYTO LOGY ORDERABLES [facility] [address] [place] [address], [facility] [phone] * CHLAMYDIA + GC AMPLIFIED PROBE (10/31/2022 6:43 AM CDT) Chlamydia Amplified Probe Negative Negative 10/31/2022 10:35 PM CDT [facility] GC Amplified Probe Negative Negative 10/31/2022 10:35 PM CDT [facility] Microbiology PART OF UTERINE CERVIX / Unknown Collection / Unknown 10/31/2022 6:43 AM CDT 10/31/2022 6:52 AM CDT Narrative [facility] - 10/31/2022 10:35 PM CDT Results based on detection/no detection of ribosomal RNA by amplified method. Max De León DO LAB - MICROBIOLOGY O RDERABLES [facility] MICRO[facility]Y [address] [place] [address], [facility] [phone] * HEPATITIS C AB W/RFLX TO HCV RNA QN PCR (09/24/2022) Hepatitis C Antibody NON-REACTI VE NON-REACT DAM[facility] Signal to Cut-Off 0.16 <1.00 [facility] Comment: HCV antibody was non-reactive. There is no laboratory evidence of HCV infection. In most cases, no further action is required. However, if recent HCV exposure is suspected, a test for HCV RNA (test code 54282) is suggested. For additional information please refer to http://3DSoC.shopandsave/faq/YIO55h8 (This link is being provided for informational/ educational purposes only.) Test Performed at: [facility] [id number] [place], [place] ??[phone] NIGEL RUIZ MD Blood BLOOD SPECIMEN / Unknown 09/24/2022 09/24/2022 10:57 AM CDT [facility] [employer]TELE[employer] ENGINEER LAB - CHEMISTR Y ORDERABLES Performing Organization Address City/State/[facility] Co de Phone Number [facility] [address] [place] [address] * HIV-1 HIV-2 ANTIBODY + HIV P24 AG PANEL (09/24/2022) Pathologist [facility] HIV Screen 4th Generation w Reflex NON-REACT [...] ?? For additional information please refer to http://3DSoC.shopandsave/faq/VUV157 (This link is being provided for informational/ educational purposes only.) The performance of this assay has not been clinically validated in patients less than 2 years old. Test Performed at: [facility] [address] [place], [place] ??[phone] NIGEL RUIZ MD Blood BLOOD SPECIMEN / Unknown 09/24/2022 09/24/2022 10:57 AM CDT Kecia Orosco KETTLE SKIMMER-TELECOM ENGINEER LAB - CHEMISTR Y ORDERABLES [facility] [id number] [place] [address] from Last 3 Months or Most Recently [...] 4:48 AM 02/17/2020 3:35 PM Care Teams Halal Butcher Relationship Specialty Start Date End Date Josiah Palacios MD [facility] [place] [address] PCP - General Family Medicine 01/19/23 Stephanie Lozano, RN Registered Nurse 12/16/16 Rei Ann, PharmD Pharmacist 01/12/17
--- OUTSIDE RECORDS SUMMARY | 2024-05-19 13:53 | XMS_ITS | Referral Summary ---
Author Organization [facility] Address [address] [place] [address] Care Team Providers Care Thread Marker Name Role Phone Stephanie Lozano RN Unavailable Unaadi ailRei Richard PharmD Unavailable Unavai Josiah Russell MD Primary Care Provider [phone] Source Comments [facility],non-owned Affiliates and Associated Physician Practices is amultiple site organization consisting of ambulatory clinics and hospital sitesin [place], [place], [place] and [place]. This disclosure is being madepursuant to the Care Everywhere program and may not contain all information available regarding this patient. Last updated 18.[facility] Encounters Date Type Department Care Team Description 05/02/2024 Travel 05/02/2024 12:00 PM SPRAY PILOT Office Visit [facility] [place] [address] Juan Landry MD Liver transplant status (HCC) (Primary Dx) 04/21/2024 Orders Only [facility] - [facility] [place] [address] Juan Landry MD 04/21/2024 Travel 04/13/2024 Refill [facility] - [facility] [address] [facility] [place] [address] Juan Landry MD Refill Request 02/23/2024 Travel 02/23/2024 Telephone [facility] - [address] [place] [address] Oleksandr Lau Future Appointment (I reached out to try and reschedule the appointment) 02/21/2024 Telephone [facility] - [address] [place] [phone] Pearl Brennan, RN Appointment 02/17/2024 Refill [facility] - [address] [facility], [place] [address] Juan Landry MD Refill Request [...] migh t be different from the original. Assistant Professor Of Philosophy Stephanie Lozano [phone] Tacrolimus Target Level 6-8 Problem Noted Date [...] vaginal yeast infection Neuro/psych: Advanced from needing Veguita q6h for pain to using Tylenol prn [...] - End tidal CO2 monitoring while on NURSES DIRECTOR ?? Neuro - Fentanyl NURSES DIRECTOR - Basal 10mcg/hr, NURSES DIRECTOR dose 15mcg - Scheduled Toradol 30mg q6h [...] miralax daily for bowel regimen while on NURSES DIRECTOR - Continue prednisone FEN: - Continue IV [...] - End tidal CO2 monitoring while on NURSES DIRECTOR Neuro: significant diffuse myalgias throughout that are improved on NURSES DIRECTOR and Toradol - Fentanyl NURSES DIRECTOR - Basal 10mcg/hr, NURSES DIRECTOR dose 15mcg - Scheduled Toradol 30mg q6h [...] miralax daily for bowel regimen while on NURSES DIRECTOR - Continue prednisone Assessment & Plan (07/28/2017 [...] - End tidal CO2 monitoring while on NURSES DIRECTOR Neuro: significant diffuse myalgias throughout, received fentanyl in ED. - Fentanyl NURSES DIRECTOR - 1x dose of Toradol - Melatonin [...] miralax daily for bowel regimen while on NURSES DIRECTOR - Continue prednisone Assessment & Plan (07/27/2017 [...] some element of liver transplant rejection. Saw Traffic Signal Repairer in November--not recommended to have another follow up until . Never had repeat liver ultrasound performed in October. Itching complaint could be a side effect of Tacrolimus which is now being used TID. Also with bleeding gums. [facility] Recommendations: 1. checking coags & bile acids 2. Should have liver ultrasound performed and report forwarded to Traffic Signal Repairer. 3. Previously counseled that it was acceptable [...] 03/21/2017 Assessment & Plan (03/21/2017 7:22 PM SPRAY PILOT): Margoth is an 17 yo F with [...] 09/17/2019 Assessment & Plan (03/20/2017 10:55 AM SPRAY PILOT): Assessment: Margoth is an 17-year-old female with [...] with outpatient GI on 03/26 - continue COMPANY LAUNDRY WORKER medications ASA 81 mg PO daily Cholecalciferol 2000 units PO qd Ferrous sulfate 325 mg PO BID Hydroxyzine 25 mg PO qhs Magnesium oxide 400 mg qd Mycophenolate 500 mg PO BID Assessment & Plan (03/19/2017 11:23 AM SPRAY PILOT): Assessment: Margoth is an 17-year-old female with [...] esomeprazole to 40 mg daily - continue COMPANY LAUNDRY WORKER medications ASA 81 mg PO daily Cholecalciferol 2000 units PO qd Ferrous sulfate 325 mg PO BID Hydroxyzine 25 mg PO qhs Magnesium oxide 400 mg qd Tacrolimus 1.5 mg qAM, 2 mg qhs Mycophenolate 500 mg PO BID Assessment & Plan (03/18/2017 2:09 PM SPRAY PILOT): Assessment: Margoth is an 17-year-old female with [...] - daily liver function panels - continue COMPANY LAUNDRY WORKER medications ASA 81 mg PO daily Cholecalciferol 2000 units PO qd Ferrous sulfate 325 mg PO BID Hydroxyzine 25 mg PO qhs Magnesium oxide 400 mg qd Tacrolimus 1.5 mg qAM, 2 mg qhs Mycophenolate 500 mg PO BID Assessment & Plan (03/18/2017 1:46 PM SPRAY PILOT): Assessment: 17 y/o female with history of [...] QPM Assessment & Plan (03/17/2017 2:01 PM SPRAY PILOT): Assessment: 17 y/o female with history of [...] QPM Assessment & Plan (03/17/2017 1:23 PM SPRAY PILOT): Assessment: Margoth is an 17-year-old female with [...] with the previous steroid treatment - continue COMPANY LAUNDRY WORKER medications ASA 81 mg PO daily Cholecalciferol 2000 units PO qd Ferrous sulfate 325 mg PO BID Hydroxyzine 25 mg PO qhs Magnesium oxide 400 mg qd Tacrolimus 1.5 mg qAM, 2 mg qhs Mycophenolate 500 mg PO BID Assessment & Plan (03/16/2017 2:07 PM SPRAY PILOT): Assessment: 17 y/o female with history of [...] QPM Assessment & Plan (03/16/2017 10:50 AM SPRAY PILOT): Assessment: Margoth is an 17-year-old female with [...] completed Assessment & Plan (03/15/2017 3:28 PM SPRAY PILOT): Assessment: 17 y/o female with history of [...] 03/08/201701/17 Assessment & Plan (04/21/2017 3:25 PM SPRAY PILOT): Chronic daily headaches (mixed pattern of migraines [...] - transition to adult neurology (either at [facility] or elsewhere). 13. Call in 4-6 weeks with update regarding headaches, sooner for concerns Assessment & Plan (03/09/2017 11:32 AM SPRAY PILOT): Assessment: Has not had a headache over [...] 03/15 Assessment & Plan (03/08/2017 10:50 AM SPRAY PILOT): Assessment: Margoth has a history of migraine [...] pain Assessment & Plan (03/08/2017 1:03 AM SPRAY PILOT): Assessment: Margoth has a history of migraine [...] 01/18/2020 Assessment & Plan (03/09/2017 11:36 AM SPRAY PILOT): Assessment: The patient's elevated liver enzymes are [...] the hydroxyzine for pruritis 2. Continue with COMPANY LAUNDRY WORKER anti-rejection medications, tacrolimus, mycophenolate, ferrous sulfate, ASA, magnesium oxide, and vitamin D 3. Follow-up liver panel on Wednesday, 03/13 at [facility] Assessment & Plan (03/08/2017 10:46 AM SPRAY PILOT): Assessment: Margoth Prather is a 16 y.o. [...] ASA Assessment & Plan (03/08/2017 1:00 AM SPRAY PILOT): Assessment: Margoth Prather is a 16 y.o. [...] 01/18/2020 Assessment & Plan (05/20/2017 9:54 PM SPRAY PILOT): Assessment: Margoth is an 17 year old [...] BID Assessment & Plan (05/20/2017 2:25 PM SPRAY PILOT): Assessment: Margoth Prather is a 17 yo [...] meds Assessment & Plan (05/19/2017 1:52 PM SPRAY PILOT): Assessment: Margoth is an 17 year old [...] BID Assessment & Plan (05/18/2017 11:19 AM SPRAY PILOT): Assessment: Margoth is an 17 year old [...] BID Assessment & Plan (05/17/2017 1:44 PM SPRAY PILOT): Assessment: Margoth is an 17 year old [...] diet Assessment & Plan (04/09/2013 6:56 PM SPRAY PILOT): Assessment: Margoth Prather is a 13 yo [...] weeks Assessment & Plan (04/08/2013 10:01 PM SPRAY PILOT): Assessment: Margoth Prather is a 13 yo [...] weeks Assessment & Plan (03/19/2013 12:21 PM SPRAY PILOT): Assessment: Margoth is a 13yo with h/o [...] daily Assessment & Plan (03/19/2013 11:08 AM SPRAY PILOT): Assessment: Margoth is a 13yo with h/o [...] daily Assessment & Plan (03/18/2013 10:34 AM SPRAY PILOT): Assessment: Margoth is a 13 yo s/p [...] to hold PRBC and FFP for procedure -community sports coordinator Cassia and Anthnoy are aware and will coordinate with [place] -IP consult to pastoral care -IP consult to social services director -community sports coordinator Gil are aware and will coordinate with [place] -IP consult to pastoral care -IP consult to social services director Footprints Patient 02/11/2012 0 Overview (02/11/2012): Simona Mcgee MA,CCLS is Margoth's [facility] Communications Strategist [phone]. HCC (hepatocellular carcinoma) 01/29/2012 07/16/2017 Overview (02/12/2012): [...] S/p chemo-embolization on 01/29/12 for HCC. Dilaudid NURSES DIRECTOR (due to extreme pruritis with morphine) not [...] (AF LURIA, FLUZONE TRIVALENT; 6MO+) (IIV3) 02/09/2007 CovInstant API primary monoval ent 12+ yr 0.3mL Purple [...] Recorded Patient Health Questionnaire-2 Score 0 12/15/2023 [facility] - Occupational Stress [...] place to sleep or slept in a group home (including now)? No 12/05/2022 Broughton Depression Scale Answer Date Recorded Broughton Depression Scale Total 6 01/19/2023 The thought [...] Comments Blood Pressure 121/75 05/02/2024 11:44 AM SPRAY PILOT Pulse 88 05/02/2024 11:44 AM SPRAY PILOT Temperature 36.5 ??C (97.7 ??F) 05/02/2024 11:[address] Respiratory Rate 18 11/08/2023 8:52 AM CDT Oxygen Saturation 99% 05/02/2024 11:44 AM SPRAY PILOT Inhaled Oxygen Concentration 100% 07/14/2017 1 2:45 PM CDT Weight 71.9 kg (158 lb 9.6 oz) 05/02/2024 11:44 AM SPRAY PILOT Height 167.6 cm (5' 6 ) 05/02/2024 11:44 AM SPRAY PILOT Body Mass Index 25.6 05/02/2024 11:44 AM SPRAY PILOT Functional Status Functional Status Response Date of [...] Description 06/27/2024 10:50 AM CDT Office Visit [facility] - PROCESS CONTROL MANAGER [address] [place] [phone] Sabra Rocha MD [address] [place] [address] 08/09/2024 3:00 PM CDT Office Visit [facility] [place] [address] [place] [address], [place] [phone] Chayo Tyson PA-C [address] [facility] [place] [phone] 10/30/2024 11:30 AM CDT Office Visit [facility] [place] [address] [place] [phone] Juan Landry MD [address] [place] [address] Goals Goal Patient Goal Type Associated Problems Recent Progress Patient-Stated? Author Safety General Alida Barlow, RN Note: Expected end date: ongoing Interventions: Your nurse will assess your risk for falls/injury each visit Medication Management General On track( 025 11:50 AM SPRAY PILOT) Alida Barlow RN Note: Expected end date:ongoing Interventions: Take all medications as prescribed Let your doctor know right away about any changes in your medications Make sure to request a refill of your medication at least one week prior to your last dose Procedures Procedure Name Priority Date/Time Associated Diagnosis Comments TACROLIMUS LEVEL 04/21/2024 2:53 PM SPRAY PILOT HEMOGLOBIN A1C 04/21/2024 2:53 PM SPRAY PILOT CBC W/O DIFFERENTIAL 04/21/2024 2:53 PM SPRAY PILOT HEPATIC FUNCTION PANEL 04/21/2024 2:53 PM SPRAY PILOT BASIC METABOLIC PANEL (CALCIUM TOTAL) 04/21/2024 2:53 PM SPRAY PILOT LIPID PROFILE 04/21/2024 2:53 PM SPRAY PILOT PAP IMAGE-GUIDED W HPV Routine 06/23/2023 11:24 AM SPRAY PILOT Encounter for gynecological examination without abnormal finding [...] Results * TACROLIMUS LEVEL (04/21/2024 2:53 PM SPRAY PILOT) Tacrolimus 5.2 mcg/L [facility] Comment: No definitive therapeutic or toxic ranges have been established. Optimal blood drug levels are influenced by type of transplant, patient response, time post- transplant, co-administration of other drugs, and drug formulation. The following trough range is a suggested guideline: 5.0-20.0 mcg/L. Test Performed at: [facility] [id number] [place] [address] ??[phone] NIGEL RUIZ MD 04/21/2024 2:53 PM SPRAY PILOT 04/21/2024 2:54 PM SPRAY PILOT Juan Landry MD LAB - THERAPEUTIC DR MARTINEZ MONITORING ORDERABLES [facility] [address] [place] [address] * HEMOGLOBIN A1C (04/21/2024 2:53 PM SPRAY PILOT) Hemoglobin A1c <4.2 <5.7 % of total [...] diagnosis of diabetes in children. According to [place] [employer] (ADA) guidelines, hemoglobin A1c <7.0% represents optimal control in non- diabetic patients. Different metrics may apply to specific patient populations. Standards of Medical Care in Diabetes(ADA). ?? Test Performed at: [facility] ??[phone] NIGEL RUIZ MD 04/21/2024 2:53 PM SPRAY PILOT 04/21/2024 2:54 PM SPRAY PILOT Juan Landry MD LAB - CHEMISTRY STEPHON AKINS [address] [address] * (ABNORMAL) CBC W/O DIFFERENTIAL (04/21/2024 2:53 PM SPRAY PILOT) White Blood Cell Count 3.7(L) 3.8 - [...] 12.5 fL [facility] Comment: Test Performed at: [facility] ??[phone] NIGEL RUIZ MD 04/21/2024 2:53 PM SPRAY PILOT 04/21/2024 2:54 PM SPRAY PILOT Juan Landry MD LAB - HEMATOLOGY ORD ERABLES Performing Organization Address [facility] Co de Phone Number [address] [address] * (ABNORMAL) BASIC METABOLIC PANEL (CALCIUM TOTAL) (04/21/2024 2:53 PM SPRAY PILOT) Glucose 101(H) 65 - 99 mg/dL [facility] [...] 10.2 mg/dL [facility] Comment: Test Performed at: [facility] ??[phone] NIGEL RUIZ MD 04/21/2024 2:53 PM SPRAY PILOT 04/21/2024 2:54 PM SPRAY PILOT Juan Ladnry MD LAB - CHEMISTRY ORDE RABLES Performing Organization Address [facility] Co de Phone Number [address] [address] * (ABNORMAL) HEPATIC FUNCTION PANEL (04/21/2024 2:53 PM SPRAY PILOT) Protein Total 6.3 6.1 - 8.1 g/dL [...] 29 U/L [facility] Comment: Test Performed at: [facility] ??[phone] NIGEL RUIZ MD 04/21/2024 2:53 PM SPRAY PILOT 04/21/2024 2:54 PM SPRAY PILOT Juan Landry MD LAB - CHEMISTRY [facility] Organization Address City/State/ZIP Co de Phone Number [address] [address] * LIPID PROFILE (04/21/2024 2:53 PM SPRAY PILOT) Pathologist [facility] Cholesterol 140 <200 mg/dL [facility] HDL Cholesterol [...] LDL-C. Jorge WOODALL et al. DANIELLE. 2013;310(19): 9458-6596 (http://education.[employer].Data Stream CBOT/faq/UOM454) CHOL/HDLC RATIO 2.1 <5.0 (calc) [facility] Non HDL Cholesterol 74 <130 mg/dL (calc) [facility] Comment: For patients with diabetes plus 1 major ASCVD risk factor, treating to a non-HDL-C goal of <100 mg/dL (LDL-C of <70 mg/dL) is considered a therapeutic option. Test Performed at: [facility] ??[phone] NIGEL RUIZ MD 04/21/2024 2:53 PM SPRAY PILOT 04/21/2024 2:54 PM SPRAY PILOT Juan Landry MD LAB - CHEMISTRY STEPHON AKINS [address] [address] * PAP IMAGE-GUIDED W HPV (06/23/2023 11:24 AM SPRAY PILOT) Case Report Gynecologic Cytology Report ? Case: [id number] ? Authorizing Provider: ??Sabra Rocha MD ?Collected: ? 06/23/2023 11:24 AM ? Ordering Location: ? [facility] - ??Received: ?06/24/2023 11:24 AM ? PROCESS CONTROL MANAGER ? First Screen: ?Maycol, Jarvis ? Specimen: [...] 10:16 AM CDT [facility] Interpretation RN LABOR AND DELIVERY Negative for intraepithelial lesion or malignancy. 06/28/2023 10:16 AM CDT [facility] Pap Footnote The Pap Smear is a screening test. False positive and false negative results occur. Negative results do not preclude abnormalities, thus clinical correlation is required. This specimen was evaluated by the ThinPrep Imaging System along with an additional manual rescreening by a marina manager and/or pathologist. 06/28/2023 10:16 AM CDT [facility] Embedded Images 10:16 AM CDT [facility] Pathology/Cytolo gy MISCELLANEOUS SAMPLES / Unknown 06/23/2023 11:24 AM SPRAY PILOT 06/24/2023 11:24 AM SPRAY PILOT Sabra Rocha MD LAB - PATHOLOGY/CYTO LOGY ORDERABLES [facility] [address] [facility], [place] [address], [facility] [phone] * CHLAMYDIA + GC AMPLIFIED PROBE (10/31/2022 6:43 AM CDT) Chlamydia Amplified Probe Negative Negative 10/31/2022 10:35 PM CDT [facility] GC Amplified Probe Negative Negative 10/31/2022 10:35 PM CDT [facility] Microbiology PART OF UTERINE CERVIX / Unknown Collection / Unknown 10/31/2022 6:43 AM CDT 10/31/2022 6:52 AM CDT Narrative [facility] - 10/31/2022 10:35 PM CDT Results based on detection/no detection of ribosomal RNA by amplified method. Max De León DO LAB - MICROBIOLOGY O RDERABLES [facility] [address] [place] [address], [facility] [phone] * HEPATITIS C AB W/RFLX TO HCV RNA QN PCR (09/24/2022) Pathologist [facility] Hepatitis C Antibody NON-REACTI VE NON-REACT [facility] Signal to Cut-Off 0.16 <1.00 [facility] Comment: HCV antibody was non-reactive. There is no laboratory evidence of HCV infection. In most cases, no further action is required. However, if recent HCV exposure is suspected, a test for HCV RNA (test code 10196) is suggested. For additional information please refer to http://education.TripleTree/faq/XGJ07v6 (This link is being provided for informational/ educational purposes only.) Test Performed at: [facility] [address] [place], [place] ??[phone] NIGEL RUIZ MD Blood BLOOD SPECIMEN / Unknown 09/24/2022 09/24/2022 10:57 AM CDT Kecia Orosco [employer]ER LAB - CHEMISTR Y ORDERABLES [facility] [address] [place] [address] * HIV-1 HIV-2 ANTIBODY + HIV P24 AG PANEL (09/24/2022) Pathologist [facility] HIV Screen 4th Generation w Reflex [...] ?? For additional information please refer to http://education.TripleTree/faq/SBX609 (This link is being provided for informational/ educational purposes only.) The performance of this assay has not been clinically validated in patients less than 2 years old. Test Performed at: [facility] [id number] [place] [address] ??[phone] NIGEL RUIZ MD Blood BLOOD SPECIMEN / Unknown 09/24/2022 09/24/2022 10:57 AM CDT Kecia Orosco [employer] LAB - CHEMISTR Y ORDERABLES [facility] [address] [place] [address] from Last 3 Months or Most Recently [...] 4:48 AM 02/17/2020 3:35 PM Care Teams Thread Marker Relationship Specialty Start Date End Date Josiah Palacios MD [facility] [place] [address] PCP - General Family Medicine 01/19/23 Stephanie Lozano, MARINA Registered Nurse 12/16/16 Rei Ann, PharmD Pharmacist 01/12/17
--- OUTSIDE RECORDS SUMMARY | 2024-05-19 13:53 | XMS_ITS | Patient Health Summary ---
Author Organization [facility] Address [address] [place] [address] Care Team Providers Care Control Clerk Name Role Phone Stephanie Lozano RN Unavailable Unaadi ailRei Richard PharmD Unavailable Unavai Josiah Russell MD Primary Care Provider [phone] Note from [facility],non-owned Affiliates and Associated Physician Practices is amultiple site organization consisting of ambulatory clinics and hospital sitesin [place], [place], [place] and [place]. This disclosure is being madepursuant to the Care Everywhere program and may not contain all information available regarding this patient. Last updated 18.[facility] Allergies * Hydromorphone(Psychiatric) -Medium Criticality * [...] Recorded Patient Health Questionnaire-2 Score 0 12/15/2023 [facility] - [...] place to sleep or slept in a custodial (including now)? No 12/05/2022 Irma Depression Scale Answer Date Recorded Irma Depression Scale Total 6 01/19/2023 The thought [...] Comments Blood Pressure 121/75 05/02/2024 11:44 AM ARTIFICIAL FOLIAGE ARRANGER Pulse 88 05/02/2024 11:44 AM ARTIFICIAL FOLIAGE ARRANGER Temperature 36.5 ??C (97.7 ??F) 05/02/2024 11:[address] Respiratory Rate 18 11/08/2023 8:52 AM CDT Oxygen Saturation 99% 05/02/2024 11:44 AM ARTIFICIAL FOLIAGE ARRANGER Inhaled Oxygen Concentration 100% 07/14/2017 1 2:45 PM CDT Weight 71.9 kg (158 lb 9.6 oz) 05/02/2024 11:44 AM ARTIFICIAL FOLIAGE ARRANGER Height 167.6 cm (5' 6 ) 05/02/2024 11:44 AM ARTIFICIAL FOLIAGE ARRANGER Body Mass Index 25.6 05/02/2024 11:44 AM ARTIFICIAL FOLIAGE ARRANGER Procedures * TACROLIMUS LEVEL(Performed 04/21/2024) * HEMOGLOBIN [...] 02/23/2023) * COMPREHENSIVE METABOLIC PANEL(Performed 02/23/2023) * OH INSERT INTRAUTERINE DEVICE(Performed 02/15/2023) Performed for Encounter [...] Performed for High-risk in third trimester ([facility]) * RPR W REFLEX TO TITER (MONITOR)(Performed 12/05/2022) Performed for High-risk in third trimester ([facility]) * COMPREHENSIVE METABOLIC PANEL(Performed 12/05/2022) Performed for High-risk in third trimester ([facility]) * SYPHILIS ANTIBODY CASCADING REFLEX(Performed 12/05/2022) Performed for High-risk in third trimester ([facility]) * CBC W AUTO DIFFERENTIAL(Performed 12/05/2022) Performed for High-risk in third trimester ([facility]) * URINE MICROSCOPIC ONLY REFLEX TO CULTURE(Performed 12/05/2022) Performed for High-risk in third trimester ([facility]) * URINALYSIS REFLEX MICROSCOPIC REFLEX CULTURE(Performed 12/05/2022) Performed for High-risk in third trimester ([facility]) * RUPTURE OF MEMBRANES EVAL(Performed 12/05/2022) Performed for High-risk in third trimester (HCC) * NONSTRESS TEST(Performed 12/04/2022) * BIOPHYSICAL PROFILE W NST(Performed 12/02/2022) Performed for History of liver transplant (HCC) * OH OB US, LIMITED, FETUS(S)(Performed 12/02/2022) Performed for History of liver transplant (HCC) * OH BIOPHYSICAL PROFILE(Performed 12/02/2022) Performed for History of [...] Anemia affecting in third trimester (HCC) * OH BIOPHYSICAL PROFILE(Performed 11/25/2022) Performed for High-risk in third trimester (HCC), Anemia affecting in third trimester (HCC), complicated by congenital heart disease, single or unspecified fetus (HCC), Current maternal condition affecting (HCC), Liver disorder during in thirdtrimester (HCC), History of liver transplant (HCC), History of hepatocellular carcinoma * OH OB US, LIMITED, FETUS(S)(Performed 11/25/2022) Performed for [...] for High-risk in third trimester (HCC) * OH SONO FU OR REPEAT(Performed 11/16/2022) Performed for History of liver transplant (HCC), History of hepatocellular carcinoma, Abnormal ultrasound, High-risk in third trimester (HCC), Thrombocytopenia affecting (HCC), Anemia affecting in third trimester (HCC), Maternal iron deficiency anemia complicating in third trimester (HCC), complicated by congenital heart disease, single or unspecified fetus (HCC), Encounter for ultrasound to check growth (HCC) * OH BIOPHYSICAL PROFILE(Performed 11/16/2022) Performed for History of liver transplant (HCC), History of hepatocellular carcinoma, Abnormal ultrasound, High-risk in third trimester (HCC), Thrombocytopenia affecting (HCC), Anemia affecting in third trimester (HCC), Maternal iron deficiency anemia complicating in third trimester (HCC), complicated by congenital heart disease, single or unspecified fetus (HCC), Encounter for ultrasound to check growth (HCC) * OH DOPPLER VELOCIMETRY ; UMBILICAL ARTERY(Performed 11/16/2022) Performed [...] ORDER(Performed 11/12/2022) * NONSTRESS TEST(Performed 11/11/2022) * OH BIOPHYSICAL PROFILE(Performed 11/10/2022) Performed for History of liver transplant (HCC), History of hepatocellular carcinoma, Abnormal ultrasound, High-risk in third trimester (HCC), Thrombocytopenia affecting (HCC), Anemia affecting in third trimester (HCC), Maternal iron deficiency anemia complicating in third trimester (HCC), complicated by congenital heart disease, single or unspecified fetus (HCC), Maternal obesity, antepartum, third trimester (HCC), Encounter for ultrasound (HCC) * OH OB US, LIMITED, FETUS(S)(Performed 11/10/2022) Performed for [...] (CALCIUM TOTAL)(Performed 11/07/2022) * GGT(Performed 11/07/2022) * OH BIOPHYSICAL PROFILE(Performed 11/03/2022) Performed for High-risk in second trimester (HCC), History of liver transplant (HCC), Thrombocytopenia affecting (HCC), History of hepatocellular carcinoma * OH OB US, LIMITED, FETUS(S)(Performed 11/03/2022) Performed for [...] Abnormal ultrasound * NONSTRESS TEST(Performed 10/22/2022) * OH SONO FU OR REPEAT(Performed 10/19/2022) Performed for [...] (HCC) * BILE ACIDS FRACT+TOTAL,(Performed 10/10/2022) * OH SONO FU OR REPEAT(Performed 09/24/2022) Performed for Encounter for follow-up ultrasound of anatomy (HCC), ventricular septal defect affecting antepartum care of mother, single or unspecified fetus (HCC), History of liver transplant (HCC), Current maternal condition affecting (HCC), Obesity affecting in second trimester (HCC), BMI 37.0-37.9, adult, High-risk in second trimester (HCC), Encounterfor ultrasound to assess interval growth of fetus (HCC) * OH DOPPLER COLOR FLOW VELOCITY MAP(Performed 09/24/2022) Performed [...] (HCC), , unspecified gestational age (HCC) * OH SONO FU OR REPEAT(Performed 08/25/2022) Performed for Encounter for follow-up ultrasound of anatomy (HCC), 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), History of liver transplant (HCC), Current maternal condition affecting (HCC) * OH ULTRASND,PREG UTER,TRANSVAGIN(Performed 08/25/2022) Performed for Encounter for follow-up ultrasound of anatomy (HCC), 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), History of liver transplant (HCC), Current maternal condition affecting (HCC) * IMAGING/RADIOLOGY/XRAY RESULTS ORDER(Performed 08/25/2022) * OH ULTRASND,PREG UTERUS,IMAGE DOC(Performed 07/28/2022) Performed for History of hepatocellular carcinoma, History of liver transplant (HCC), Encounter forantenatal screening for malformation (HCC), Encounter for screening for cervical length (HCC), 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), High-risk in second trimester (HCC) * OH ULTRASND,PREG UTER,TRANSVAGIN(Performed 07/28/2022) Performed for History of [...] other normal in first trimester (HCC) * OH OB US, LIMITED, FETUS(S)(Performed 07/01/2022) Performed for [...] of , childbirth and the puerperium, Other hand thermal cutter (current) drug therapy * IGG BLOOD(Performed 06/30/2022) Performed for History of liver transplant (HCC), Elevated liver enzymes, Personal history of other complications of , childbirth and the puerperium, Other retirement (current) drug therapy * TACROLIMUS LEVEL(Performed 06/30/2022) Performed for History of liver transplant (HCC), Elevated liver enzymes, Personal history of other complications of , childbirth and the puerperium, Other retirement (current) drug therapy * BILE ACIDS FRACT+TOTAL,(Performed 06/30/2022) Performed for History of liver transplant (HCC), Elevated liver enzymes, Personal history of other complications of , childbirth and the puerperium, Other hand thermal cutter (current) drug therapy * TACROLIMUS LEVEL(Performed 06/01/2022) [...] * CBC W AUTO DIFFERENTIAL(Performed 10/13/2020) * OH INSERT INTRAUTERINE DEVICE(Performed 10/07/2020) Performed for Encounter [...] (HCC) * IMAGING/RADIOLOGY/XRAY RESULTS ORDER(Performed 03/18/2020) * OH SONO FU OR REPEAT(Performed 03/13/2020) Performed for Encounter for ultrasound to check growth ([facility]), History of liver transplant (HCC), Velamentous insertion of umbilical cord, antepartum ([facility]) * CULTURE STREP B(Performed 03/13/2020) Performed for screening for streptococcus B ([facility]) * IMAGING/RADIOLOGY/XRAY RESULTS ORDER(Performed 03/13/2020) * URINALYSIS - POINT OF CARE (AMB) [facility](Performed 03/13/2020) Performed for Supervision of high risk , antepartum ([facility]) * IMAGING/RADIOLOGY/XRAY RESULTS ORDER(Performed 03/06/2020) * IMAGING/RADIOLOGY/XRAY RESULTS ORDER(Performed 02/23/2020) * NONSTRESS TEST(Performed 02/20/2020) * URINALYSIS REFLEX MICROSCOPIC REFLEX CULTURE(Performed 02/20/2020) * CHLAMYDIA + GC AMPLIFIED PROBE(Performed 02/20/2020) Performed for Threatened premature labor in third trimester ([facility]) * TRICHOMONAS RAPID TEST(Performed 02/20/2020) Performed for Threatened premature labor in third trimester ([facility]) * TACROLIMUS LEVEL(Performed 02/17/2020) * SARS-COV-2 (COVID-19) [...] (HCC) * IMAGING/RADIOLOGY/XRAY RESULTS ORDER(Performed 02/13/2020) * OH SONO FU OR REPEAT(Performed 02/12/2020) Performed for [...] BILE ACIDS(Performed 01/18/2020) Performed for Itching * OH SONO FU OR REPEAT(Performed 01/18/2020) Performed for [...] 11/29/2019) * IMAGING/RADIOLOGY/XRAY RESULTS ORDER(Performed 11/24/2019) * OH ULTRASND,PREG UTERUS,IMAGE DOC(Performed 11/23/2019) Performed for S/P liver transplant, biliary anastomosis without stent or T-tube (HCC), Current maternal condition affecting (HCC), Teratogen exposure in , antepartum (HCC), Encounter for routine screening for malformation using ultrasound, Encounter for screening for risk of pre-term labor (HCC), Obesity affecting in second trimester (HCC) * OH ULTRASND,PREG UTER,TRANSVAGIN(Performed 11/23/2019) Performed for S/P liver [...] URINE - POINT OF CAR(Performed 11/17/2019) * OH ULTRASOUND, UTERUS(Performed 10/17/2019) Performed for Encounter to [...] Performed for Liver replaced by transplant ([facility]) * VEGA STAINING PATTERNS REFLEXED(Performed 08/10/2019) Performed [...] Performed for Liver replaced by transplant ([facility]), Transplant rejection * CYTOMEGALOVIRUS ANTIBODY IGG/IGM BLOOD(Performed 08/10/2019) Performed for Liver replaced by transplant ([facility]), Transplant rejection * PT-INR [facility](Performed 08/10/2019) Performed [...] Performed for S/P liver transplant (HCC) * OH ENDO NASAL SINUS BX POLYP DEBRID ANTONIO(Performed [...] for Hx of liver transplant (HCC) * OH CTRL NOSEBLEED,ANTER,COMPLEX(Performed 11/29/2017) Performed for Epistaxis * [...] Performed for S/P liver transplant (HCC) * BETTINA-MDERANO VIRUS PCR QUANTITATIVE WHOLE BLOOD(Performed 02/09/2014) Performed [...] TITER(Performed 04/03/2013) Performed for Liver disorder * ABGZE-5-[id number] BLOOD(Performed 04/03/2013) Performed for Liver disorder * [...] Results * TACROLIMUS LEVEL (04/21/2024 2:53 PM ARTIFICIAL FOLIAGE ARRANGER) Only the most recent of169 resultswithin the time period is included. Tacrolimus 5.2 mcg/L [facility] Comment: No definitive therapeutic or toxic ranges have been established. Optimal blood drug levels are influenced by type of transplant, patient response, time post- transplant, co-administration of other drugs, and drug formulation. The following trough range is a suggested guideline: 5.0-20.0 mcg/L. Test Performed at: [facility] [address] [place] ??[phone] NIGEL RUIZ MD 04/21/2024 2:53 PM ARTIFICIAL FOLIAGE ARRANGER 04/21/2024 2:54 PM ARTIFICIAL FOLIAGE ARRANGER Juan Landry MD LAB - THERAPEUTIC DR MARTINEZ MONITORING ORDERABLES [address] [address] * HEMOGLOBIN A1C (04/21/2024 2:53 PM ARTIFICIAL FOLIAGE ARRANGER) Hemoglobin A1c <4.2 <5.7 % of total [...] diagnosis of diabetes in children. According to [place] Diabetes Association (ADA) guidelines, hemoglobin A1c <7.0% represents optimal control in non- diabetic patients. Different metrics may apply to specific patient populations. Standards of Medical Care in Diabetes(ADA). ?? Test Performed at: [email or web address] ??[phone] NIGEL RUIZ MD 04/21/2024 2:53 PM ARTIFICIAL FOLIAGE ARRANGER 04/21/2024 2:54 PM ARTIFICIAL FOLIAGE ARRANGER Juan Landry MD LAB - CHEMISTRY STEPHON AKINS Performing Organization Address [facility]/ZIP Co de Phone Number [address] [address] * (ABNORMAL) CBC W/O DIFFERENTIAL (04/21/2024 2:53 PM ARTIFICIAL FOLIAGE ARRANGER) Only the most recent of17 resultswithin the [...] 12.5 fL [facility] Comment: Test Performed at: [email or web address] ??[id number] NIGEL RUIZ MD 04/21/2024 2:53 PM ARTIFICIAL FOLIAGE ARRANGER 04/21/2024 2:54 PM ARTIFICIAL FOLIAGE ARRANGER Juan Landry MD LAB - HEMATOLOGY ORD LOVE Performing Organization Address [facility]/ZIP Co de Phone Number [address] [address] * (ABNORMAL) BASIC METABOLIC PANEL (CALCIUM TOTAL) (04/21/2024 2:53 PM ARTIFICIAL FOLIAGE ARRANGER) Only the most recent of16 resultswithin the time period is included. Pathologist [facility] Glucose 101(H) 65 [...] 10.2 mg/dL [facility] Comment: Test Performed at: [email or web address] ??[phone] NIGEL RUIZ MD 04/21/2024 2:53 PM ARTIFICIAL FOLIAGE ARRANGER 04/21/2024 2:54 PM ARTIFICIAL FOLIAGE ARRANGER Juan Landry MD LAB - CHEMISTRY ORDE MABLE [address] [address] * (ABNORMAL) HEPATIC FUNCTION PANEL (04/21/2024 2:53 PM ARTIFICIAL FOLIAGE ARRANGER) Only the most recent of91 resultswithin the [...] 29 U/L [facility] Comment: Test Performed at: [email or web address] ??[phone] NIGEL RUIZ MD 04/21/2024 2:53 PM ARTIFICIAL FOLIAGE ARRANGER 04/21/2024 2:54 PM ARTIFICIAL FOLIAGE ARRANGER Juan Landry MD LAB - CHEMISTRY STEPHON AKINS Performing Organization Address City/[facility]/ZIP Co de Phone Number [address] [address] * LIPID PROFILE (04/21/2024 2:53 PM ARTIFICIAL FOLIAGE ARRANGER) Only the most recent of4 resultswithin the [...] LDL-C. Jorge SS et al. DANIELLE. 2013;310(19): 0477-9918 (http://education.PE INTERNATIONAL.UAB FIMA/faq/VSJ235) CHOL/HDLC RATIO 2.1 <5.0 (calc) [facility] Non HDL Cholesterol 74 <130 mg/dL (calc) [facility] Comment: For patients with diabetes plus 1 major ASCVD risk factor, treating to a non-HDL-C goal of <100 mg/dL (LDL-C of <70 mg/dL) is considered a therapeutic option. Test Performed at: [email or web address] ??[phone] NIGEL RUIZ MD 04/21/2024 2:53 PM ARTIFICIAL FOLIAGE ARRANGER 04/21/2024 2:54 PM ARTIFICIAL FOLIAGE ARRANGER Juan Landry MD LAB - CHEMISTRY STEPHON AKINS Performing Organization Address City/[facility]/ZIP Co de Phone Number [address] [address] * HPV DETECTION HIGH RISK HU (06/23/2023 11:24 AM ARTIFICIAL FOLIAGE ARRANGER) High Risk Human Papilloma Result Not detected Not detected 06/25/2023 7:10 AM ARTIFICIAL FOLIAGE ARRANGER [facility] High Risk Human Papilloma Interp 06/25/2023 7:10 AM ARTIFICIAL FOLIAGE ARRANGER [facility] Comment:High Risk Human Saleem lloma Virus was Not Detected. Pathology/Cytolo gy MISCELLANEOUS SAMPLES / Unknown 06/23/2023 11:24 AM ARTIFICIAL FOLIAGE ARRANGER 06/24/2023 11:24 AM ARTIFICIAL FOLIAGE ARRANGER Narrative [facility] - 06/25/2023 7:10 AM ARTIFICIAL FOLIAGE ARRANGER Nucleic acid isolated from the specimen was [...] - MICROBIOLOGY O RDERABLES Performing Organization Address City/State/[facility] Co de Phone Number [facility] [address] [place] [address], [facility] [phone] * PAP IMAGE-GUIDED W HPV (06/23/2023 11:24 AM ARTIFICIAL FOLIAGE ARRANGER) Pathologist [facility] Case Report Gynecologic Cytology Report ? Case: [id number] ? Authorizing Provider: ??Sabra Rocha MD ?Collected: ? 06/23/2023 11:24 AM ? [facility] ??Received: ?06/24/2023 11:24 AM ? MEDICAL PATHOLOGY TEACHER ? First Screen: ?Maycol, Jarvis ? Specimen: [...] 10:16 AM CDT [facility] Interpretation WEIGHT REDUCTION SPECIALIST Negative for intraepithelial lesion or malignancy. 06/28/2023 10:16 AM CDT [facility] Pap Footnote The Pap Smear is a screening test. False positive and false negative results occur. Negative results do not preclude abnormalities, thus clinical correlation is required. This specimen was evaluated by the ThinPrep Imaging System along with an additional manual rescreening by a mill tender second operator and/or pathologist. 06/28/2023 10:16 AM CDT [facility] Embedded Images 10:16 AM CDT [facility] Pathology/Cytolo gy MISCELLANEOUS SAMPLES / Unknown 06/23/2023 11:24 AM ARTIFICIAL FOLIAGE ARRANGER 06/24/2023 11:24 AM ARTIFICIAL FOLIAGE ARRANGER Sabra Rocha MD LAB - PATHOLOGY/CYTO LOGY ORDERABLES [facility] [address] [phone] * CT US GUIDED NEEDLE PLACEMENT (03/12/2023 8:49 AM ARTIFICIAL FOLIAGE ARRANGER) Anatomical Region Laterality Modality Chest, Abdomen X-Ray Angiograph y Impressions 03/12/2023 9:35 AM ARTIFICIAL FOLIAGE ARRANGER Impression: Ultrasound-guided core biopsy of right lobe [...] evaluation, please review the evaluation forms in [facility]. For details on monitored clinical parameters during the intra-service sedation time, please review the procedure nurse documentation in [facility]. > Interpreting Provider: Landy Tee MD on 03/12/2023 9:35 AM Narrative 03/12/2023 9:35 AM ARTIFICIAL FOLIAGE ARRANGER PROCEDURE: ??CT US GUIDED NEEDLE PLACEMENT DATE/TIME [...] ORDERABLES * PATHOLOGY TISSUE (03/12/2023 8:37 AM ARTIFICIAL FOLIAGE ARRANGER) Case Report Surgical Pathology Report ? Case: [id number] ? Authorizing Provider: ??Juan Landry MD ?Collected: ? 03/12/2023 08:37 AM ? Ordering Location: ? [facility] ?Received: ?03/12/2023 10:50 AM ? Pathologist: ? Darlene March MD ? Specimen: ?Liver ? 03/15/2023 6:03 PM [facility] Final Diagnosis Liver, allograft, biopsy (A): - Minimal/mild bile duct injury, see comment - No significant fibrosis 03/15/2023 6:03 PM [facility] Microscopic Description and Comment The [...] with significant liver injury. 03/15/2023 6:03 PM [facility] Clinical History The patient is a 22-year-old woman status post liver transplant; rule out rejection. Operative procedure: Ultrasound-guided biopsy 03/15/2023 6:03 PM [facility] Gross Description The requisition and specimen(s) are identified with the patient's name Lili Aguila . Received in formalin, specimen A , consists of 2 yellow-hale brown cylindrical core fragments, 1.8 cm and 2.2 cm in length, each 0.1 cm in diameter. The specimen is submitted in toto in cassette A1. ELEUTERIO 03/15/2023 6:03 PM [facility] Pathologist Location at [facility] 03/15/2023 6:03 PM [facility] Disclaimer The performance characteristics of all immunohistochemical and indirect immunofluorescence stains (if any) cited in this report were determined by the Histopathology Laboratory of [facility]. Some of these tests were developed by [...] the attending (teaching) pathologist. 03/15/2023 6:03 PM [facility] Collected By Frandy Zimmerman RN 03/15/2023 6:03 PM [facility] Embedded Images 03/15/2023 6:03 PM [facility] Pathology/Cytolog y ENTIRE LIVER / Unknown Collection / Unknown 03/12/2023 8:37 AM ARTIFICIAL FOLIAGE ARRANGER 03/12/2023 10:50 AM ARTIFICIAL FOLIAGE ARRANGER Comment:H/o txp r/o rejectio n Juan Landry MD LAB - PATHOLOGY/CYTO LOGY ORDERABLES Performing Organization Address City/[facility]/ZIP Co de Phone Number [facility] [address] [facility] [place] [address], [facility] [phone] * (ABNORMAL) PT-INR [facility] (03/12/2023 7:27 AM ARTIFICIAL FOLIAGE ARRANGER) Only the most recent of2 resultswithin the time period is included. PT 16.3(H) 12.1 - 14.8 Seconds 03/12/2023 7:52 AM ARTIFICIAL FOLIAGE ARRANGER [facility] INR 1.4 See Comment 03/12/2023 7:52 AM [facility] Comment:The suggested therap eutic range for standard coumadin (warfarin) therapy is an INR of 2.0-3.0. For high-risk patients (Mechanical Mitral Valve Prosthesis, etc.), the suggested prophylactic therapeutic range is an INR of 2.5-3.5. Blood BLOOD SPECIMEN / Unknown Venipuncture / Unknown 03/12/2023 7:27 AM ARTIFICIAL FOLIAGE ARRANGER 03/12/2023 7:52 AM ARTIFICIAL FOLIAGE ARRANGER Aliya Bird MD LAB - COAGULATION ORDERABLES Performing Organization Address [facility] Co de Phone Number [address] [phone], [facility] [phone] * HCG URINE QUALITATIVE - POCT (IP) INTERFACED (03/12/2023 7:10 AM ARTIFICIAL FOLIAGE ARRANGER) Only the most recent of2 resultswithin the time period is included. HCG Qual Urine Negative Negative 03/12/2023 7:17 AM ARTIFICIAL FOLIAGE ARRANGER [facility] Urine URINE / Unknown 03/12/2023 7 :10 AM ARTIFICIAL FOLIAGE ARRANGER 03/12/2023 7:17 AM ARTIFICIAL FOLIAGE ARRANGER Juan Landry MD LAB - POINT OF CARE ORDERABLES Performing Organization Address City/[facility]/ZIP Co de Phone Number [facility] [address] [place] [phone], [facility] [phone] * HCG URINE QUAL POCT NOTIFICATION (03/12/2023 7:09 AM ARTIFICIAL FOLIAGE ARRANGER) Comment Notification Label Only - See Separate Report 03/12/2023 8:30 AM ARTIFICIAL FOLIAGE ARRANGER [facility] Urine URINE / Unknown 03/12/2023 7 :09 AM ARTIFICIAL FOLIAGE ARRANGER 03/12/2023 7:09 AM ARTIFICIAL FOLIAGE ARRANGER Juan Landry MD LAB - URINALYSIS ORD ERABLES [facility] [address] [place] [address], [facility] [phone] * US LIVER TRANSPLANT (03/09/2023 11:04 AM ARTIFICIAL FOLIAGE ARRANGER) Only the most recent of2 resultswithin the time period is included. Anatomical Region Laterality Modality Abdomen Ultrasound 03/09/2023 10:5 6 AM ARTIFICIAL FOLIAGE ARRANGER Impressions 03/09/2023 5:15 PM ARTIFICIAL FOLIAGE ARRANGER IMPRESSION: 1.Normal sonographic appearance of the transplant liver. 2.Diffuse interval decrease within the portal velocities with redemonstrated splenomegaly and splenic varices. 3.Otherwise normal liver Doppler with patent hepatic transplant vasculature. > Dictated by Miller Rincon MD (vice president safety). > Dictated by Miller Rincon ([employer] Setters Installer) 03/09/2023 10:56 AM IBryant MD have personally reviewed and interpreted this examination/study. > Interpreting Provider: Bryant Moraes MD on 03/09/2023 5:15 PM Narrative 03/09/2023 5:15 PM ARTIFICIAL FOLIAGE ARRANGER PROCEDURE: ??US LIVER TRANSPLANT, DATE/TIME OF EXAM: ??03/09/2023 10:15 AM, LOCATION ??[facility] INDICATION: Z94.4: History of liver transplant [...] TRANSPLANT, DATE/TIME OF EXAM: 03/09/2023 10:15AM, LOCATION [facility] INDICATION: Z94.4: History of liver transplant [...] vasculature. > Dictated by Miller Rincon MD (vice president safety). > Dictated by Miller Rincon ([employer] Setters Installer) 03/09/2023 10:56 AM IBryant MD have personally reviewed and interpreted this examination/study. > Interpreting Provider: Bryant Moraes MD on 03/09/2023 5:15 PM Juan Landry MD ORDERABLES * (ABNORMAL) COMPREHENSIVE METABOLIC PANEL (02/23/2023 12:04 PM ARTIFICIAL FOLIAGE ARRANGER) Only the most recent of134 resultswithin the [...] 29 U/L [facility] Comment: Test Performed at: [facility] ??[phone] NIGEL RUIZ MD 02/23/2023 12:0 4 PM ARTIFICIAL FOLIAGE ARRANGER 02/23/2023 12:05 PM ARTIFICIAL FOLIAGE ARRANGER Juan Landry MD LAB - CHEMISTRY ZHANEE MABLE [address] [address] * [place] INSERT INTRAUTERINE DEVICE (02/15/2023 2:52 PM CDT) [...] * HCG URINE QUALITATIVE - POCT (IP) [facility] (02/15/2023 2:30 PM CDT) Pathologist [facility] Test Urine Negative Negative [facility] [address] Urine URINE / Unknown 02/15/2023 2 :30 PM CDT Frida Sesay MD LAB - POINT OF CAR E ORDERABLES [facility] [address] [place] [address], [facility] [phone] * (ABNORMAL) CBC W AUTO DIFFERENTIAL (12/06/2022 7:13 AM CDT) Only the most recent of189 resultswithin the time period is included. Pathologist [facility] WBC 8.9 4.4 - 10.7 x10E9/L 12/06/2022 8:02 AM CDT [facility] WBC Corrected 12/06/2022 8:02 AM CDT [facility] RBC 3.31(L) 3.80 - 5.20 x10E12/L 12/06/2022 8:02 AM CDT [facility] Hemoglobin 10.7(L) 12.0 - 15.6 gm/dL 12/06/2022 8:02 AM CDT [facility] Hematocrit 32.1(L) 35.9 - 45.5 % 12/06/2022 8:02 AM CDT [facility] MCV 97.0 80.7 - 98.3 fl 12/06/2022 8:02 AM CDT [facility] MCH 32.3 26.7 - 34.0 pg 12/06/2022 8:02 AM [facility] MCHC 33.3 30.8 - 35.9 gm/dL 12/06/2022 8:02 AM [facility] Platelet Count 103(L) 153 - 416 x10E9/L 12/06/2022 8:02 AM [facility] RDW-CV 15.2(H) 12.1 - 14.9 % 12/06/2022 8:02 AM [facility] MPV 11.0 9.4 - 12.9 fl 12/06/2022 8:02 AM [facility] Neutrophils % 70.5 44.0 - 73.0 % 12/06/2022 8:02 AM [facility] Lymphocytes % 15.8(L) 20.0 - 43.0 % 12/06/2022 8:02 AM [facility] Monocytes % 9.4 5.0 - 13.0 % 12/06/2022 8:02 AM [facility] Eosinophils % 3.1 0.0 - 6.0 % 12/06/2022 8:02 AM [facility] Basophils % 0.6 0.0 - 2.0 % 12/06/2022 8:02 AM [facility] Immature Granulocytes 0.6 0 - 1 % 12/06/2022 8:02 AM [facility] Neutrophil Absolute 6.28 2.01 - 7.14 x10E9/L 12/06/2022 8:02 AM [facility] Lymphocytes Absolute 1.41 1.07 - 3.94 x10E9/L 12/06/2022 8:02 AM [facility] Monocytes Absolute 0.84 0.26 - 1.07 x10E9/L 12/06/2022 8:02 AM [facility] Eosinophils Absolute 0.28 0 - 0.47 x10E9/L 12/06/2022 8:02 AM [facility] Basophils Absolute 0.05 0 - 0.08 x10E9/L 12/06/2022 8:02 AM [facility] Immature Granulocytes Absolute 0.05 0.00 - 0.06 x10E9/L 12/06/2022 8:02 AM CDT [facility] nRBC Auto 0 /100 WBC 12/06/2022 8:02 AM CDT [facility] Blood BLOOD SPECIMEN / Unknown Lab Venipuncture / Unknown 12/06/2022 7:13 AM CDT 12/06/2022 7:35 AM CDT Marcel Ram MD LAB - HEMATOLO GY ORDERABLES Performing Organization Address City/[facility] Co de Phone Number [facility] [address] [place] [address] * (ABNORMAL) BLOOD GASES CORD DANO (ISTAT) (12/05/2022 5:52 PM CDT) pH Cord Venous POCT 7.26(L) 7.28 - 7.40 pH 12/05/2022 6:03 PM CDT [facility] pCO2 Cord Venous POCT 45.2(H) 35 - 45 mm hg 12/05/2022 6:03 PM CDT [facility] pO2 Cord Venous POCT 29 22 - 33 mm hg 12/05/2022 6:03 PM CDT [facility] HCO3 Cord Arterial POCT 20.4(L) 22 - 24 mmol/L 12/05/2022 6:03 PM CDT [facility] BE Cord Venous POCT Calc -7(L) -6.4 - 1.6 mmol/L 12/05/2022 6:03 PM CDT [facility] TCO2 Cord Venous POCT 22 22 - 30 mmol/L 12/05/2022 6:03 PM CDT [facility] O2 Saturation % Cord Venous Calc POCT 46 % 12/05/2022 6:03 PM CDT [facility] Site CORD DANO 12/05/2022 6:03 PM CDT [facility] Sample iSTAT CORD DANO 12/05/2022 6:03 PM T [facility] Blood CORD BLOOD SPECIMEN / Unknown 12/05/2022 5:52 PM CDT 12/05/2022 6:03 PM CDT Marcel Ram MD LAB - POINT OF CARE ORDERABLES Performing Organization Address City/[facility] Co de Phone Number [facility] [address] [place] [address] * (ABNORMAL) BLOOD GASES CORD ART (ISTAT) (12/05/2022 5:48 PM CDT) pH Cord Arterial POCT 7.18(L) 7.20 - 7.34 pH 12/05/2022 6:03 PM CDT [facility] pCO2 Cord Arterial POCT 63.6(H) 45 - 55 mm hg 12/05/2022 6:03 PM CDT [facility] pO2 Cord Arterial POCT 20 12 - 25 mm hg 12/05/2022 6:03 PM CDT [facility] HCO3 Cord Arterial POCT 23.5 22 - 24 mmol/L 12/05/2022 6:03 PM CDT [facility] BE Cord Arterial POCT -7(L) -2.9 - 8.3 mmol/L 12/05/2022 6:03 PM CDT [facility] TCO2 Cord Arterial POCT 25 mmol/L 12/05/2022 6:03 PM CDT [facility] O2 Saturation Cord Art % Calc POCT 21 % 12/05/2022 6:03 PM CDT [facility] Site CORD ART 12/05/2022 6:03 PM CDT [facility] Sample iSTAT CORD ART 12/05/2022 6:03 PM CDT [facility] Blood CORD BLOOD SPECIMEN / Unknown 12/05/2022 5:48 PM CDT 12/05/2022 6:03 PM CDT Marcel Ram MD LAB - POINT OF CARE ORDERABLES [facility] [address] [place] [address] * EPIDURAL BLOCK PERF (12/05/2022 4:53 PM CDT) Narrative Angel Hua APRN-HEAD WAITER/WAITRESS - 12/05/2022 4:53 PM CDT Angel Hua APRN-HEAD WAITER/WAITRESS ? 12/05/2022 ??4:58 PM Neuraxial Block Note [...] Ramirez MD Provider #1: ??Angel Hua V., IT HELP DESK MANAGER-HEAD WAITER/WAITRESS ?? - ??performed the procedure Additional Notes: ??Pt with persistant low abd pain . Epidural replaced Kalyani Ramirez MD GENERAL ANESTHESIA O RDERABLES * SYPHILIS ANTIBODY CASCADING REFLEX (12/05/2022 6:18 AM CDT) Only the most recent of2 resultswithin the time period is included. Treponema pallidum Antibody Non Reactive Non Reactive 12/05/2022 7:27 AM CDT [facility] Comment: No Laboratory evidence of syphilis infection. ?? Note: ??Circulating antibodies may be low or undetectable in early infection. ??If recent exposure is suspected, re-draw sample in 2-4 weeks and repeat testing. Blood BLOOD SPECIMEN / Unknown Venipuncture / Unknown 12/05/2022 6:18 AM CDT 12/05/2022 6:29 AM CDT Marcel Ram MD LAB - SEROLOGY ORDERABLES Performing Organization Address [facility] Co de Phone Number [facility] [address] [place] [phone] * RPR W REFLEX TO TITER (MONITOR) (12/05/2022 6:18 AM CDT) Only the most recent of2 resultswithin the time period is included. RPR Monitor Nonreactive Nonreactive 12/05/2022 11:04 AM CDT [facility] Blood BLOOD SPECIMEN / Unknown Venipuncture / Unknown 12/05/2022 6:18 AM CDT 12/05/2022 6:30 AM CDT Marcel Ram MD LAB - CHEMISTR Y ORDERABLES Performing Organization Address [facility] de Phone Number [facility] [address] [place] [address] [phone] * TYPE + SCREEN PANEL (12/05/2022 6:18 AM CDT) Only the most recent of12 resultswithin the time period is included. ABO Rh O POS 12/05/2022 7:05 AM CDT [facility] Comment:History checked. Antibody Screen NEG 7:05 AM CDT [facility] Blood Bank BLOOD SPECIMEN / Unknown Venipuncture / Unknown 12/05/2022 6:18 AM CDT 12/05/2022 6:29 AM CDT Marcel Ram MD LAB - BLOOD BA NK ORDERABLES Performing Organization Address [facility] Co de Phone Number [facility] [address] [place] [address] * (ABNORMAL) URINE MICROSCOPIC ONLY REFLEX TO CULTURE (12/05/2022 5:24 AM CDT) Only the most recent of2 resultswithin the time period is included. Reflex Status Culture not indicated 12/05/2022 5:44 AM CDT [facility] RBC UA 6-10(A) 0 - 5 # /hpf 12/05/2022 5:44 AM CDT [facility] WBC UA 0-5 0 - 5 # /hpf 12/05/2022 5:44 AM CDT [facility] Bacteria UA None Seen None Seen 12/05/2022 5:44 AM CDT [facility] Squamous Epithelial Cells 3-5 0 - 5 /hpf 12/05/2022 5:44 AM CDT [facility] Mucus UA 1+ /LPF 12/05/2022 5:44 AM CDT [facility] Urine URINE SPECIMEN OBTAINED BY CLEAN CATCH PROCEDURE / Unknown Collection / Unknown 12/05/2022 5:24 AM CDT 12/05/2022 5:30 AM CDT Narrative [facility] - 12/05/2022 5:44 AM CDT Marcel Ram MD LAB - URINALYS IS ORDERABLES Performing Organization Address [facility] Co de Phone Number [facility] [address] [place] [phone] * (ABNORMAL) URINALYSIS REFLEX MICROSCOPIC REFLEX CULTURE (12/05/2022 5:24 AM CDT) Only the most recent of10 resultswithin the time period is included. Color UA Yellow Straw, Yellow 12/05/2022 5:43 AM CDT [facility] Clarity UA Clear Clear 12/05/2022 5:43 AM CDT [facility] Glucose UA Negative Negative 12/05/2022 5:43 AM CDT [facility] Bilirubin UA Negative Negative 12/05/2022 5:43 AM CDT [facility] Ketone UA Negative Negative 12/05/2022 5:43 AM CDT [facility] Specific Morrow UA 1.011 1.005 - 1.030 12/05/2022 5:43 AM CDT [facility] Blood UA 2+(A) Negative 12/05/2022 5:43 AM CDT [facility] pH UA 7.0 5.0 - 8.0 pH 12/05/2022 5:43 AM CDT [facility] Protein UA Negative Negative 12/05/2022 5:43 AM CDT [facility] Urobilinogen UA 2.0(A) Negative mg/dL 12/05/2022 5:43 AM CDT [facility] Nitrite UA Negative Negative 12/05/2022 5:43 AM CDT [facility] Leukocyte UA Negative Negative 12/05/2022 5:43 AM CDT [facility] Urine Microscopy Urine microscopy to follow 12/05/2022 5:43 AM CDT [facility] Reflex Status Culture not indicated 12/05/2022 5:43 AM CDT [facility] Urine URINE SPECIMEN OBTAINED BY CLEAN CATCH PROCEDURE / Unknown Collection / Unknown 12/05/2022 5:24 AM CDT 12/05/2022 5:30 AM CDT Narrative [facility] - 12/05/2022 5:43 AM CDT Marcel Ram MD LAB - URINALYS IS ORDERABLES [facility] [address] [place] [address] * (ABNORMAL) RUPTURE OF MEMBRANES EVAL (12/05/2022 5:21 AM CDT) RUPTURE OF MEMBRANES POSITIVE(A ) NEGATIVE 12/05/2022 5:45 AM CDT [facility] Fluid VAGINAL SWAB / Unknown Collection / Unknown 12/05/2022 5:21 AM CDT 12/05/2022 5:29 AM CDT Narrative [facility] - 12/05/2022 5:45 AM CDT A [...] MD LAB - BODY FLUID OR DERABLES [facility] [address] [place] [phone] * NONSTRESS TEST (12/04/2022 1:13 AM CDT) [...] Yes OTHER INFORMATION Britni Ramon Non-Stress Test [facility] Patient Name: Lili Aguila LMP: Patient's last [...] Ram MD OB GYNE ORDERA BLES * [place] BIOPHYSICAL PROFILE, [place] OB US, LIMITED, FETUS(S), BIOPHYSICAL PROFILE W NST (12/02/2022 8:54 AM CDT) Anatomical Region Laterality Modality Other Narrative 12/02/2022 8:54 AM CDT Darlene Zimmerman ? 12/02/2022 ??8:55 AM Documentation in digisonics Marcel Ram MD [facility] ORDERABLES * URINALYSIS - POINT OF CARE (AMB) [facility] (12/02/2022) Only the most recent of14 resultswithin the time period is included. Specific Morrow UA 1.015 pH UA 6 WBC UA [...] OTHER INFORMATION Ave Moon RN Non-Stress Test [facility] Patient Name: Lili Aguila LMP: Patient's last menstrual period was 12/23/2020 (approximate). Gestational Age: 36w0d as of 11/30/2022 Estimated Date of Delivery: 12/28/22 Indications: contractions NST date: 11/30/2022 NST duration: >20 mins Interpretation: Baseline: ??130 beats/minute moderate variability Reactive Contractions: ??irregular Decelerations: ??none Impression and Plan: FWB reassuring, continue monitoring as scheduled. Anton Storey MD 11/30/2022 4:44 AM Mariama Holt [place] MD OB GYNE ORDERABLES * CULTURE STREP B (11/25/2022 12:45 PM CDT) Only the most recent of2 resultswithin the time period is included. Culture [facility] Comment: ??STREPTOCOCCUS, GROUP B CULTURE ?Micro Number: ?[id number] ??Test Status: ? Final ??Specimen Source: ?? Anorectum/vagina ??Specimen Quality: ??Adequate ??Result: ?No group B Streptococcus isolated ? Note per CDC guidelines optimal recovery is ? achieved by swabbing both the lower vagina and ? rectum (through the anal sphincter). Test Performed at: [facility] ??[phone] NIGEL RUIZ MD Microbiology MISCELLANEOUS SAMPLES / Unknown 11/25/2022 12:45 PM CDT 11/26/2022 1:50 AM CDT Kecia Ana Luisa IT HELP DESK MANAGER-AUTOMOTIVE HARDWARE ENGINEER LAB - MICROBIO LOGY ORDERABLES [address] [address] * [place] OB US, LIMITED, FETUS(S), [place] BIOPHYSICAL PROFILE (11/25/2022 9:26 AM CDT) Narrative [...] analytical performance characteristics have been determined by [employer] [facility]. It has not been cleared or approved by FDA. This assay has been validated pursuant to the CLIA regulations and is used for clinical purposes. Test Performed at: [facility] [address] [place] ??[phone] DONG AVENDANO MD,PHD,ALLY Blood BLOOD SPECIMEN / Unknown 11/20/2022 3:09 PM CDT 11/20/2022 3:10 PM CDT Adelfo Champion MD LAB - CHEMISTRY STEPHON AKINS [facility] Organization Address City/State/ZIP Co de Phone Number [facility] [address] [place] [address] * [place] DOPPLER VELOCIMETRY ; UMBILICAL ARTERY, [place] BIOPHYSICAL PROFILE, [place] SONO FU OR REPEAT (11/16/2022 2:37 PM [...] INFORMATION Manasa De Leon RN Non-Stress Test [facility] Patient Name: Lili Aguila LMP: Patient's last [...] Taina Cason MD OB GYNE ORDERABLES * [place] OB US, LIMITED, FETUS(S), [place] BIOPHYSICAL PROFILE (11/10/2022 4:52 PM CDT) Narrative [...] analytical performance characteristics have been determined by [employer] [facility]. It has not been cleared or approved by FDA. This assay has been validated pursuant to the CLIA regulations and is used for clinical purposes. Test Performed at: [facility] [address] [place], [place] ??[phone] DONG AVENDANO MD,PHD,ALLY 11/07/2022 12:1 8 PM CDT 11/07/2022 12:18 PM CDT Juan Landry MD LAB - CHEMISTRY STEPHON AKINS [facility] Organization Address City/State/ZIP Co de Phone Number [facility] [address] [place] [address] * GGT (11/07/2022 12:18 PM CDT) Only the most recent of165 resultswithin the time period is included. GGT 7 3 - 40 U/L [facility] Comment: Test Performed at: [facility] ??[phone] NIGEL RUIZ MD 11/07/2022 12:1 8 PM CDT 11/07/2022 12:18 PM CDT Juan Landry MD LAB - CHEMISTRY STEPHON AKINS [address] [address] * [place] OB US, LIMITED, FETUS(S), [place] BIOPHYSICAL PROFILE (11/03/2022 2:28 PM CDT) Narrative [...] OTHER INFORMATION Collette Chapman RN Non-Stress Test [facility] Patient Name: Lili Aguila LMP: Patient's last [...] Probe Negative Negative 10/31/2022 10:35 PM CDT [facility] GC Amplified Probe Negative Negative 10/31/2022 10:35 PM CDT [facility] Microbiology PART OF UTERINE CERVIX / Unknown Collection / Unknown 10/31/2022 6:43 AM CDT 10/31/2022 6:52 AM CDT Narrative [facility] - 10/31/2022 10:35 PM CDT Results based on detection/no detection of ribosomal RNA by amplified method. Max De León DO LAB - MICROBIOLOGY O RAPHAEL Performing Organization Address City/[facility]/ZIP Co de Phone Number [facility] [address] [place] [address], [facility] [phone] * TRICHOMONAS RAPID TEST (10/31/2022 6:43 AM CDT) Only the most recent of5 resultswithin the time period is included. Trichomonas Rapid Test Negative Negative 10/31/2022 7:07 AM CDT [facility] Microbiology VAGINAL SWAB / Unknown Collection / Unknown 10/31/2022 6:43 AM CDT 10/31/2022 6:51 AM CDT Max De León DO LAB - MICROBIOLOGY O RAPHAEL [facility] [address] [place] [address] * ECHO COMPLETE (10/22/2022 11:48 AM CDT) [...] Info Gender: ? Female Accession #: ? [id number] Patient Status: ? O/P : ? 2000 Admit Date: ? 10/22/2022 Exam Date/Time: ? 10/22/2022 10:45 AM Site: ? [facility] Staff Ordering Provider: ? Kecia Orosco [employer] Worker: ? Belkys Daniels RD - FE Study [...] 10/22/2022 Exam Date/Time: 10/22/2022 10:45 AM Site: [facility] Staff Ordering Provider: Kecia Orosco [employer] Worker: Belkys Daniels [facility] Study Info Procedure: ECHO COMPLETE Indications: O28.3 [...] MD on 10/22/2022 12:29 PM Kecia Orosco APRN-AUTOMOTIVE HARDWARE ENGINEER ECHO CUPID * NONSTRESS TEST (10/22/2022 2:54 [...] Yes OTHER INFORMATION Britni Ramon Non-Stress Test [facility] Patient Name: Lili Aguila LMP: Patient's last [...] De León DO OB GYNE ORDERABLES * [place] SONO FU OR REPEAT (10/19/2022 1:00 PM CDT) Narrative Jesus Donato RDMS - 10/19/2022 1:00 PM CDT Jesus Donato RDMS ? 10/19/2022 ??1:00 PM Documentation in digisonics. Kecia Orosco IT HELP DESK MANAGER-AUTOMOTIVE HARDWARE ENGINEER PROCEDURE/YOLANDA R SURGICAL ORDERABLES * TSH+FREE T4 PANEL (10/16/2022 12:15 PM CDT) TSH 1.92 mIU/L [facility] Comment: ?Reference Range ?> or = 20 Years ??0.40-4.50 ? Ranges ?First trimester ?0.26-2.66 ?Second trimester ?? 0.55-2.73 ?Third trimester ?0.43-2.91 T4 Free 0.9 0.8 - 1.8 ng/dL [facility] Comment: Test Performed at: [facility] [address] [place] ??[phone] NIGEL RUIZ MD Blood BLOOD SPECIMEN / Unknown 10/16/2022 12:15 PM CDT 10/16/2022 12:17 PM CDT Kecia Orosco APRN-AUTOMOTIVE HARDWARE ENGINEER LAB - CHEMISTR Y ORDERABLES Performing Organization Address [facility] de Phone Number [facility] [address] [place] [address] * IRON + TIBC + FERRITIN (10/16/2022 12:15 PM CDT) Only the most recent of3 resultswithin the time period is included. Iron 101 40 - 190 mcg/dL [facility] TIBC 397 250 - 450 mcg/dL (calc) [facility] % Saturation 25 16 - 45 % (calc) [facility] Ferritin 35 16 - 154 ng/mL [facility] Comment: Test Performed at: [facility] [address] [place] ??[phone] NIGEL RUIZ MD 10/16/2022 12:1 5 PM CDT 10/16/2022 12:17 PM CDT Kecia Orosco IT HELP DESK MANAGER-AUTOMOTIVE HARDWARE ENGINEER LAB - CHEMISTR Y ORDERABLES Performing Organization Address [facility]/State/ZIP Co de Phone Number [facility] [address] [place] [address] * [place] DOPPLER COLOR FLOW VELOCITY MAP, [place] SONO FU OR REPEAT (09/24/2022 10:38 AM CDT) Narrative Nafisa Singh - 09/24/2022 10:38 AM CDT Nafisa Singh ? 09/24/2022 10:38 AM Documentation in digisonics. Kecia Ana Luisa IT HELP DESK MANAGER-AUTOMOTIVE HARDWARE ENGINEER PROCEDURE/YOLANDA R SURGICAL ORDERABLES * HEPATITIS C [...] a test for HCV RNA (test code 32304) is suggested. For additional information please refer to http://education.[employer]faq/QNO72v0 (This link is being provided for informational/ educational purposes only.) Test Performed at: [facility] [place] ??[phone] NIGEL RUIZ MD Blood BLOOD SPECIMEN / Unknown 09/24/2022 09/24/2022 10:57 AM CDT Keciaalbin [employer] ESCALONA-AUTOMOTIVE HARDWARE ENGINEER LAB - CHEMISTR Y ORDERABLES [facility] [address] [place] [address] * GTT 1 HR (50G) GESTATIONAL SCREEN (09/24/2022) Only the most recent of2 resultswithin the time period is included. Glucose Gestational Screen 125 <140 mg/dL [facility] Comment: Test Performed at: [employer] [address] [address] [facility] [place] ??[phone] NIGEL RUIZ MD Blood BLOOD SPECIMEN / Unknown 09/24/2022 09/24/2022 10:57 AM CDT Kecia Orosco IT HELP DESK MANAGER-AUTOMOTIVE HARDWARE ENGINEER LAB - CHEMISTR Y ORDERABLES Performing Organization Address [facility] Co de Phone Number [facility] [address] [place] [address] * HIV-1 HIV-2 ANTIBODY + HIV P24 AG PANEL (09/24/2022) Only the most recent of4 resultswithin the time period is included. [facility] HIV Screen 4th Generation w Reflex NON-REACT DAMON NON-REACT DAMON [facility] Comment: HIV-1 antigen and HIV-1/HIV-2 antibodies were [...] ?? For additional information please refer to http://education.[employer]faq/FLT518 (This link is being provided for informational/ educational purposes only.) The performance of this assay has not been clinically validated in patients less than 2 years old. Test Performed at: [facility] [id number] [place] [address] ??[phone] NIGEL RUIZ MD Blood BLOOD SPECIMEN / Unknown 09/24/2022 09/24/2022 10:57 AM CDT Kecia Orosco IT HELP DESK MANAGER-AUTOMOTIVE HARDWARE ENGINEER LAB - CHEMISTR Y ORDERABLES Performing Organization Address [facility] Co de Phone Number [facility] [address] [place] [address] * TREPONEMA PALLIDUM POS REFLX RPR (09/24/2022) [facility] Treponema pallidum Antibody EIA NEGATIVE NEGATIVE [facility] Comment: No antibodies to T. pallidum (the agent causing syphilis) were detected in the specimen. This result, however, does not exclude very recent T. pallidum infection; testing of a second specimen, collected 2-4 weeks after this specimen, is recommended if the index of suspicion for recent infection is high. REPORT COMMENT: FASTING:NO COLLECTION REQUIREMENTS NOT MET. PATIENT ADVISED TO RETURN. Test Performed at: [facility] [address] ??[phone] ANGEL LEVIN Blood BLOOD SPECIMEN / Unknown 09/24/2022 09/24/2022 10:57 AM CDT Kecia Orosco IT HELP DESK MANAGER-AUTOMOTIVE HARDWARE ENGINEER LAB - SEROLOGY ORDERABLES [facility] [address] [place] [address] * NONSTRESS TEST (09/19/2022 3:57 AM CDT) [...] Adelfo Champion MD OB GYNE ORDERABLES * OH ULTRASND,PREG UTER,TRANSVAGIN, OH SONO FU OR REPEAT (08/25/2022 2:54 PM CDT) Narrative Nafisa Singh - 08/25/2022 2:54 PM CDT Nafisa Singh ? 08/25/2022 ??2:55 PM Documentation in digisonics. Mariama Mendoza MD PROCEDU RE/MINOR SURGICAL ORDERABLES * OH ULTRASND,PREG UTER,TRANSVAGIN, OH ULTRASND,PREG UTERUS,IMAGE DOC (07/28/2022 3:30 PM CDT) [...] Comment: For additional information, please refer to http://education.GruvIt/faq/ZHT519 (This link is being provided for informational/ [...] infection with rubella virus. Test Performed at: [facility] [address] [place] [address] ??[id number] NIGEL RUIZ MD Blood BLOOD SPECIMEN / Unknown 07/23/2022 11:20 AM CDT 07/23/2022 11:21 AM CDT Eduard Red MD LAB - CHEMISTRY ORDERABLES [facility] [id number] [place] [address] * CULTURE URINE (07/01/2022 12:06 PM CDT) Only the most recent of9 resultswithin the time period is included. Culture QUEST Comment: ??CULTURE, URINE, ROUTINE ?Micro Number: ?[id number] ??Test Status: ? Final ??Specimen Source: ?? Urine, clean catch ??Specimen Quality: ??Adequate ??Result: ?No Growth Test Performed at: [facility] ??[id number] NIGEL RUIZ MD Urine URINE SPECIMEN OBTAINED BY CLEAN CATCH PROCEDURE / Unknown 07/01/2022 12:06 PM CDT 07/02/2022 2:06 AM CDT Eduard Red MD LAB - MICROBIOL OGY ORDERABLES Performing Organization Address [facility]/ZIP Co de Phone Number [address] [address] * [place] OB US, LIMITED, FETUS(S) (07/01/2022 9:37 AM CDT) Narrative Jesus Donato RDMS - 07/01/2022 9:37 AM CDT Jesus Donato RDMS ? 07/01/2022 ??9:37 AM Documentation in digisonics. Marcel Ram MD PROCEDURE/YOLANDA R SURGICAL ORDERABLES * IGG BLOOD (06/30/2022 11:10 AM CDT) Only the most recent of4 resultswithin the time period is included. Pathologist [facility] IgG 1605 600 - 1640 mg/dL [facility] Comment: Test Performed at: [facility] [place] [address] [place] ??[phone] NIGEL RUIZ MD Blood BLOOD SPECIMEN / Unknown 06/30/2022 11:10 AM CDT 06/30/2022 11:12 AM CDT Juan Landry MD LAB - CHEMISTRY STEPHON AKINS Performing Organization Address [facility]/ZIP Co de Phone Number [address] [address] * (ABNORMAL) PT-INR (12/08/2021 7:10 AM CDT) Only the most recent of13 resultswithin the time period is included. Pathologist [facility] INR 1.2(H) [facility] Comment: Reference Range ? 0.9-1.1 Moderate-intensity Warfarin Therapy 2.0-3.0 Higher-intensity Warfarin Therapy ?? 3.0-4.0 PT 12.2(H) 9.0 - 11.5 sec [facility] Comment: For additional information, please refer to http://education.[employer]./faq/UXL223 (This link is being provided for informational/ educational purposes only.) Test Performed at: [facility] ??[phone] NIGEL RUIZ MD 12/08/2021 7:10 AM CDT 12/08/2021 7:11 AM CDT Juan Landry MD LAB - COAGULATION OR DERABLES Performing Organization Address [facility] Co de Phone Number [address] [address] * SLIDE SCAN HEMATOLOGY (12/08/2021 7:10 AM CDT) Only the most recent of3 resultswithin the time period is included. [facility] CBC Morphology NORMAL [facility] Comment: Red cell morphology appears unremarkable Test Performed at: [facility] [place] [address] [place] ??[phone] [employer]IR SEALS DO,MPH 12/08/2021 7:10 AM CDT 12/08/2021 7:11 AM CDT Juan Landry MD LAB - HEMATOLOGY ORD ERABLES Performing Organization Address [facility] Co de Phone Number [address] [address] * HCG URINE QUALITATIVE - POINT OF CARE (AMB) (01/06/2021) Only the most recent of2 resultswithin the time period is included. Pathologist [facility] HCG Qual Urine Negative Negative QC Verified [...] Quantitative <1.20 mIU/mL 10/14/19 9:30 AM CDT [facility] Blood BLOOD SPECIMEN / Unknown Venipuncture / Unknown 10/13/2020 6:34 AM CDT 10/13/2020 6:41 AM CDT Narrative [facility] - 10/13/2020 9:30 AM CDT ? [...] - CHEMISTRY STEPHON AKINS Performing Organization Address City/State/[facility] Co de Phone Number [facility] [address] [phone] * [place] INSERT INTRAUTERINE DEVICE (10/07/2020 1:07 PM CDT) Narrative Frida De Los Santos MD - 10/07/2020 1:07 PM CDT Frida De Los Santos MD ? 10/07/2020 ??1:49 PM See progress note Frida De Los Santos MD PROCEDURE/MINOR SURG ICAL ORDERABLES * C. TRACHOMATIS + N. GONORRHOEAE HU (09/09/2020 3:16 PM CDT) Chlamydia Trachomatis HU Not detected Not detected 09/11/2020 8:38 AM CDT [facility] Neisseria Gonorrhoeae HU Not detected Not detected 09/11/2020 8:38 AM CDT [facility] Pathology/Cytolo gy MISCELLANEOUS SAMPLES / Unknown 09/09/2020 3:16 PM CDT 09/10/2020 12:04 PM CDT Narrative [facility] - 09/11/2020 8:38 AM CDT This analysis was performed using Gen-Probe Aptima Combo 2. This methodology is [place].S[place] FDA approved for Chlamydia trachomatis and Neisseria gonorrhoeae testing for urine and urogenital swabs from men and women, and cervical cells submitted in ThinPrep vials. Performance characteristics for rectal and pharyngeal swabs were determined by the Molecular Diagnostics Laboratory at [facility]. ??Testing by Gen- Probe Aptima Combo 2 [...] Los Santos MD LAB - MICROBIOLOGY [facility] Performing Organization Address City/State/[facility] Co de Phone Number [facility] [address] [facility] [place] [address], [facility] [phone] * PAP IMAGE-GUIDED RFLX HPV+CT/NG (09/09/2020 3:16 PM CDT) Case Report Gynecologic Cytology Report ? Case: [id number] ? 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 09/11/2020 [...] with an additional manual rescreening by a mill tender second operator and/or pathologist. 09/11/2020 10:55 AM CDT [facility] Embedded Images 10:55 AM CDT [facility] Pathology/Cytolo gy MISCELLANEOUS SAMPLES / Unknown 09/09/2020 3:16 PM CDT 09/10/2020 12:04 PM CDT Frida De Los Santos MD LAB - PATHOLOGY/CYTO LOGY ORDERABLES Performing Organization Address City/State/[facility] Co de Phone Number [facility] [address] [phone] * (ABNORMAL) COAGULATION PANEL W D-DIMER (04/23/2020 12:28 AM ARTIFICIAL FOLIAGE ARRANGER) PT 14.7 12.1 - 14.8 sec 04/23/2020 1:[address] [facility] INR 1.2(H) 0.9 - 1.1 04/23/2020 1:[address] [facility] PTT 31.7 23.0 - 38.4 sec 04/23/2020 1:[address] [facility] Fibrinogen 415(H) 200 - 400 mg/dL 04/23/2020 1:[address] [facility] D-Dimer 1.09(H) 0.27 - 0.50 ug/mL FEU 04/23/2020 1:[address] [facility] Platelet Count 143(L) 153 - 416 x10E9/L 04/23/2020 1:[address] [facility] Blood BLOOD SPECIMEN / Unknown Venipuncture / Unknown 04/23/2020 12:28 AM ART[employer]IAL FOLIAGE ARRANGER 04/23/2020 12:35 AM [facility] Narrative [facility] - 04/23/2020 1:20 AM [facility] Conventional Warfarin Anticoagulant Therapy INR Reference Range: [...] Walker MD LAB - COAGULATION OR DERABLES [facility] [address] [place] [address] * (ABNORMAL) BLOOD GASES CORD DANO (03/23/2020 7:03 PM ARTIFICIAL FOLIAGE ARRANGER) pH Cord Venous 7.36 7.28 - 7.40 pH 03/23/2020 7:16 PM ARTIFICIAL FOLIAGE ARRANGER [facility] Comment:H pCO2 Cord Venous 35 35 - 45 mm hg 03/23/2020 7:16 PM ARTIFICIAL FOLIAGE ARRANGER [facility] pO2 Cord Venous 40(H) 22 - 33 mm hg 03/23/2020 7:16 PM ARTIFICIAL FOLIAGE ARRANGER [facility] Comment:H HCO3 Cord Venous 19(L) 22 - 24 mmol/L 03/23/2020 7:16 PM ARTIFICIAL FOLIAGE ARRANGER [facility] BE Cord Venous -5.0 mmol/L 03/23/2020 7:16 PM ARTIFICIAL FOLIAGE ARRANGER [facility] O2 Saturation Cord Venous 74 % 03/23/2020 7:16 PM ARTIFICIAL FOLIAGE ARRANGER [facility] Mode APV/SIMV 03/23/2020 7:16 PM ARTIFICIAL FOLIAGE ARRANGER [facility] Darrion's Test N/A 03/23/2020 7:16 PM ARTIFICIAL FOLIAGE ARRANGER [facility] Sample Site UMB 03/23/2020 7:16 PM ARTIFICIAL FOLIAGE ARRANGER [facility] Sample Type Cord Blood Venous 03/23/2020 7:16 PM ARTIFICIAL FOLIAGE ARRANGER [facility] Plastic Sewer ID [id number] 03/23/2020 7:16 PM ARTIFICIAL FOLIAGE ARRANGER [facility] Notified Liane Robbins, RN 03/23/2020 7:16 PM ARTIFICIAL FOLIAGE ARRANGER [facility] Notification Time 03/23/2020 19:15 03/23/2020 7:16 PM ARTIFICIAL FOLIAGE ARRANGER [facility] Notified By Qi Elizalde, MAXIMO 03/23/2020 7:16 PM ARTIFICIAL FOLIAGE ARRANGER [facility] Blood CORD BLOOD SPECIMEN / Unknown 03/23/2020 7:03 PM ARTIFICIAL FOLIAGE ARRANGER 03/23/2020 7:03 PM ARTIFICIAL FOLIAGE ARRANGER Chayo Casillas MD LAB - BLOOD GASES ORDERABLES [facility] [address] [phone] * (ABNORMAL) BLOOD GASES CORD ARTERIAL (03/23/2020 7:03 PM ARTIFICIAL FOLIAGE ARRANGER) pH Cord Arterial 7.10(L) 7.20 - 7.34 pH 03/23/2020 7:17 PM ARTIFICIAL FOLIAGE ARRANGER [facility] Comment:LL pCO2 Cord Arterial 82(HH) 45 - 55 mm hg 03/23/2020 7:17 PM ARTIFICIAL FOLIAGE ARRANGER [facility] Comment:HH pO2 Cord Arterial 14 12 - 25 mm hg 03/23/2020 7:17 PM ARTIFICIAL FOLIAGE ARRANGER [facility] HCO3 Cord Arterial 24.9(H) 22.0 - 24.0 mmol/L 03/23/2020 7:17 PM ARTIFICIAL FOLIAGE ARRANGER [facility] BE Cord Arterial -7.1 mmol/L 03/23/20 20 7:17 PM ARTIFICIAL FOLIAGE ARRANGER [facility] O2 Saturation Cord Arterial 03/23/2020 7:17 PM ARTIFICIAL FOLIAGE ARRANGER [facility] Comment:< Darrion's Test N/A 03/23/2020 7:17 PM ARTIFICIAL FOLIAGE ARRANGER [facility] Sample Site UMB 03/23/2020 7:17 PM ARTIFICIAL FOLIAGE ARRANGER [facility] Sample Type Cord blood Arterial 03/23/2020 7:17 PM ARTIFICIAL FOLIAGE ARRANGER [facility] THERAPY Plastic Sewer ID [id number] 03/23/2020 7:17 PM ARTIFICIAL FOLIAGE ARRANGER [facility] Notified Who Yassine Garduno RN 03/23/2020 7:17 PM ARTIFICIAL FOLIAGE ARRANGER [facility] Notification Time 03/23/2020 19:16 03/23/2020 7:17 PM ARTIFICIAL FOLIAGE ARRANGER [facility] Notified By Qi Elizalde RRT 03/23/2020 7:17 PM ARTIFICIAL FOLIAGE ARRANGER [facility] Blood, arterial CORD BLOOD SPECIMEN / Unknown 03/23/2020 7:03 PM ARTIFICIAL FOLIAGE ARRANGER 03/23/2020 7:03 PM ARTIFICIAL FOLIAGE ARRANGER Chayo Casillas MD LAB - BLOOD GASES ORDERABLES Performing Organization Address [facility]/State/[facility] Co de Phone Number [facility] [address] [phone] * EPIDURAL BLOCK PERF (03/23/2020 7:21 AM ARTIFICIAL FOLIAGE ARRANGER) Narrative Luz Altamirano APRN-HEAD WAITER/WAITRESS - 03/23/2020 7:21 AM ARTIFICIAL FOLIAGE ARRANGER Luz Altamirano APRN-CRNA ? 03/23/2020 ??7:22 AM [...] ??3 Staff: ?? Anesthesia Provider: ??Luz Altamirano, IT HELP DESK MANAGER-HEAD WAITER/WAITRESS ?? - ?? performed the procedure Giuseppe Thorne MD GENERAL ANESTHESIA ORDERABLES * (ABNORMAL) BILE ACIDS (03/22/2020 7:11 PM ARTIFICIAL FOLIAGE ARRANGER) Only the most recent of2 resultswithin the time period is included. Bile Acids Total 48.6(H) 0.0 - 10.0 umol/L 03/25/2020 12:08 PM ARTIFICIAL FOLIAGE ARRANGER [facility] ([facility]) Blood BLOOD SPECIMEN / Unknown Venipuncture / Unknown 03/22/2020 7:11 PM ARTIFICIAL FOLIAGE ARRANGER 03/22/2020 7:18 PM ARTIFICIAL FOLIAGE ARRANGER Narrative [facility] ([facility]) - 03/25/2020 12:08 PM ARTIFICIAL FOLIAGE ARRANGER Performed at: ??01 - [facility] [address] ??[id number] Shear Operator Helper: Justin Stapleton MD, Phone: ??[phone] Sofia Navarro MD LAB - CHEMISTRY STEPHON Day Organization Address City/State/ZIP Co de Phone Number [facility] ([facility]) [address] [place] [address] * [place] SONO FU OR REPEAT (03/13/2020 10:08 AM ARTIFICIAL FOLIAGE ARRANGER) Narrative Kinjal Polanco RDMS - 03/13/2020 10:08 AM ARTIFICIAL FOLIAGE ARRANGER Kinjal Polanco RDMS ? 03/13/2020 10:08 AM Documentation in digisonics. Mariama Mendoza MD PROCEDU RE/MINOR SURGICAL ORDERABLES * NONSTRESS TEST (02/20/2020 9:30 PM ARTIFICIAL FOLIAGE ARRANGER) Narrative Frida Smith MD - 02/20/2020 9:30 PM ARTIFICIAL FOLIAGE ARRANGER Frida Smith MD ? 02/21/2020 ??9:13 AM [...] 140 bpm, moderate variability, reactive, no decelerations [place]: about 1 contraction per hour, otherwise quiet Monitored for > 2 hours Destiny Marcelo MD 02/20/2020 11:47 PM Agree Frida Smith MD Destiny Marcelo MD OB GYNE ORDERABLES * SARS-COV-2 (COVID-19) ANTIBODY IGG (02/16/2020 9:51 AM CDT) Pathologist [facility] CoV2 IGG Negative Negative 02/16/2020 3:35 PM CDT [facility] Blood BLOOD SPECIMEN / Unknown Lab Venipuncture / Unknown 02/16/2020 9:51 AM CDT 02/16/2020 10:00 AM CDT Narrative [facility] - 02/16/2020 3:35 PM CDT This serologic based test was developed by [employer] and its performance characteristics determined by [facility] along with other [facility]. This test has not been [...] due to past or present infection with fbs-HAJV-QyG-2 coronavirus strains. Rigorous scientific studies have not been completed to determine if detectable IgG to SARS-CoV-2 confers protective immunity. Jeffrey Phelps DO LAB - CHEMISTRY STEPHON AKINS [facility] [address] [place] [address] * PROCALCITONIN LEVEL (02/16/2020 9:51 AM CDT) Pathologist [facility] Procalcitonin 0.05 <0.10 ng/mL 02/16/2020 10:48 AM CDT [facility] Blood BLOOD SPECIMEN / Unknown Lab Venipuncture / Unknown 02/16/2020 9:51 AM CDT 02/16/2020 10:00 AM CDT Narrative [facility] - 02/16/2020 10:48 AM CDT The [...] Change in Procalcitonin Calculator is available at [email or web address]-CZW-[email or web address] FIMA ?? If clinical picture has not improved and PCT remains high, reevaluate and consider treatment failure or other causes. Nafisa Cannon APRNPrudent Energy LAB - CHEMIS TRY ORDERABLES [facility] [address] [phone] * (ABNORMAL) C-REACTIVE PROTEIN (02/16/2020 9:51 AM CDT) Only the most recent of3 resultswithin the time period is included. C-Reactive Protein 1.62(H) <=0.50 mg/dL 02/16/2020 10:27 AM CDT [facility] Blood BLOOD SPECIMEN / Unknown Lab Venipuncture / Unknown 02/16/2020 9:51 AM CDT 02/16/2020 10:00 AM CDT Nafisa Cannon IT HELP DESK MANAGER-AUTOMOTIVE HARDWARE ENGINEER LAB - CHEMIS TRY ORDERABLES Performing Organization Address [facility] Co de Phone Number [facility] [address] [place] [address] * (ABNORMAL) D-DIMER (02/16/2020 9:51 AM CDT) [facility] D-Dimer 1.28(H) 0.27 - 0.50 ug/mL FEU 02/16/2020 10:24 AM CDT [facility] Blood BLOOD SPECIMEN / Unknown Lab Venipuncture / Unknown 02/16/2020 9:51 AM CDT 02/16/2020 10:00 AM CDT Narrative [facility] - 02/16/2020 10:24 AM CDT In the absence of clinical symptoms, a value less than or equal to 0.5 mcg/mL FEU significantly decreases the probability of PE/DVT (negative predictive value >95%). 1 mcg/ml FEU = 1 Fibrinogen Equivalent Unit (approximates 0.5 mcg/mL of D- dimer). Nafisa Cannon APRN-AUTOMOTIVE HARDWARE ENGINEER LAB - COAGUL ATION ORDERABLES Performing Organization Address [facility] de Phone Number [facility] [address] [place] [phone] * LDH BLOOD (02/16/2020 9:51 AM CDT) Only the most recent of2 resultswithin the time period is included. [facility] LDH 163 125 - 220 U/L 02/16/2020 10:27 AM CDT [facility] Blood BLOOD SPECIMEN / Unknown Lab Venipuncture / Unknown 02/16/2020 9:51 AM CDT 02/16/2020 10:00 AM CDT Nafisa Cannon IT HELP DESK MANAGER-AUTOMOTIVE HARDWARE ENGINEER LAB - CHEMIS TRY ORDERABLES Performing Organization Address [facility] Co de Phone Number [facility] [address] [place] [address] * FERRITIN (02/16/2020 9:51 AM CDT) Only the most recent of6 resultswithin the time period is included. [facility] Ferritin 18 5 - 204 ng/mL 02/16/2020 10:49 AM CDT [facility] Blood BLOOD SPECIMEN / Unknown Lab Venipuncture / Unknown 02/16/2020 9:51 AM CDT 02/16/2020 10:00 AM CDT Nafisa Cannon IT HELP DESK MANAGER-AUTOMOTIVE HARDWARE ENGINEER LAB - CHEMIS TRY ORDERABLES [facility] [address] [place] [address] * XR CHEST 1VW PORTABLE (02/16/2020 4:35 [...] AA) Not detected 02/16/2020 3:58 AM CDT [facility] Microbiology SPECIMEN FROM NASOPHARYNGEAL STRUCTURE / Unknown Collection / Unknown 02/16/2020 3:14 AM CDT 02/16/2020 3:16 AM CDT Narrative [facility] - 02/16/2020 3:58 AM CDT The [employer] Xpert Xpress SARS_COV_2 has been authorized by [...] - MICROBIOLOG Y ORDERABLES Performing Organization Address City/[facility]/ZIP Co de Phone Number [facility] [address] [place] [address] * BLOOD TYPE VERIFICATION (02/16/2020 2:58 AM CDT) Pathologist [facility] ABO Rh O POS 02/16/2020 6:5 9 AM CDT [facility] Blood Bank BLOOD SPECIMEN / Unknown Lab Venipuncture / Unknown 02/16/2020 2:58 AM CDT 02/16/2020 6:22 AM CDT Jeffrey Phelps DO LAB - BLOOD BANK ORD ERABLES Performing Organization Address [facility]/ZIP Co de Phone Number [facility] [address] [place] [address] * INFLUENZA A+B ANTIGEN RAPID (02/16/2020 2:58 AM CDT) Only the most recent of2 resultswithin the time period is included. Influenza A Antigen Negative Negative 02/16/2020 3:28 AM CDT [facility] Influenza B Antigen Negative Negative 02/16/2020 3:28 AM CDT [facility] Microbiology SPECIMEN FROM NASOPHARYNGEAL STRUCTURE / Unknown Collection / Unknown 02/16/2020 2:58 AM CDT 02/16/2020 3:06 AM CDT Narrative [facility] - 02/16/2020 3:28 AM CDT ? [...] - MICROBIOLOG Y ORDERABLES Performing Organization Address [facility] de Phone Number [facility] [address] [place] [address] * PHOSPHORUS BLOOD (02/16/2020 2:58 AM CDT) Only the most recent of68 resultswithin the time period is included. Phosphorus 3.4 2.3 - 4.7 mg/dL 02/16/2020 3:44 AM CDT [facility] Blood BLOOD SPECIMEN / Unknown Venipuncture / Unknown 02/16/2020 2:58 AM CDT 02/16/2020 3:05 AM CDT Chayo Casillas MD LAB - CHEMISTRY O RDERABLES Performing Organization Address [facility] de Phone Number [facility] [address] [place] [address] * (ABNORMAL) MAGNESIUM BLOOD (02/16/2020 2:58 AM CDT) Only the most recent of157 resultswithin the time period is included. Magnesium 1.5(L) 1.6 - 2.6 mg/dL 02/16/2020 3:44 AM CDT [facility] Blood BLOOD SPECIMEN / Unknown Venipuncture / Unknown 02/16/2020 2:58 AM CDT 02/16/2020 3:05 AM CDT Chayo Casillas MD LAB - CHEMISTRY O RDERABLES [facility] [address] [place] [address] * [place] SONO FU OR REPEAT (02/12/2020 3:55 PM [...] to the Heparin Anti-Xa assay (test code 78652). For additional information, please refer to http://education.[employer]/faq/EFN474 (This link is being provided for informational/educational purposes only.) INR 1.1 [facility] Comment: Reference Range ? 0.9-1.1 Moderate-intensity Warfarin Therapy 2.0-3.0 Higher-intensity Warfarin Therapy ?? 3.0-4.0 PT 10.6 9.0 - 11.5 sec [facility] Comment: Test Performed at: [facility] [address] ??[phone] HAIR SEALS DO,MPH Blood BLOOD SPECIMEN / Unknown 01/18/2020 2:34 PM CDT 01/18/2020 2:35 PM CDT Agnes Potts MD LAB - COAGULATION OR DERABLES Performing Organization Address [facility] Co de Phone Number [facility] [address] [place] [address] * (ABNORMAL) FIBRINOGEN ACTIVITY (01/18/2020 2:34 PM CDT) Only the most recent of2 resultswithin the time period is included. Fibrinogen Activity Clauss 489(H) 175 - 425 mg/dL [facility] Comment: REPORT COMMENT: FASTING:NO Test Performed at: [facility] ??[phone] [employer]ALS DO,MPH 01/18/2020 2:34 PM CDT 01/18/2020 2:35 PM CDT Agnes Potts MD LAB - COAGULATION OR DERABLES Performing Organization Address [facility] Co de Phone Number [facility] [address] [place] [address] * [place] SONO FU OR REPEAT (01/18/2020 1:42 PM [...] Agency Comment Lab Testing performed at: [facility] [address] ??[facility] [phone] Giovana Walker MD LAB - CHEMISTRY STEPHON AKINS Performing Organization Address City/[facility]/ZIP Co de Phone Number [facility] INSURANCE BILL [address] [place] [address] * GLUCOSE CHALLENGE (01/15/2020 2:14 PM CDT) Pathologist [facility] GTT 1Hr 115 65 - 139 mg/dL [...] Resulting Agency Comment Lab Testing performed at: [facility] [address] [facility] ??[facility] [phone] Giovana Walker MD LAB - CHEMISTRY STEPHON AKINS [facility] [address] [place] [address] * GLUCOSE - POINT OF CARE (12/12/2019 11:42 PM CDT) Only the most recent of18 resultswithin the time period is included. [facility] Glucose WB/POC 78 70 - 106 mg/dL 12/12/2019 11:50 PM CDT [facility] Specimen Type Arterial/C apillary 12/12/2019 11:50 PM CDT [facility] Blood BLOOD SPECIMEN / Unknown 12/12/2019 11:42 PM CDT 12/12/2019 11:50 PM CDT Giovana Walker MD LAB - POINT OF CARE ORDERABLES [facility] [address] [place] [address] * TROPONIN I (11/29/2019 2:52 AM CDT) [facility] Troponin I <0.010 <0.038 ng/mL 11/29/2019 3:33 AM CDT [facility] Blood BLOOD SPECIMEN / Unknown Venipuncture / Unknown 11/29/2019 2:52 AM CDT 11/29/2019 2:59 AM CDT Maci Herron MD LAB - CHEMISTRY STEPHON AKINS Performing Organization Address City/[facility]/ZIP Co de Phone Number [facility] [address] [place] [address] * EKG 12-LEAD (11/29/2019 12:55 AM CDT) Ventricular Rate 80 BPM [facility] Atrial Rate 80 BPM [facility] P-R Interval 136 ms [facility] QRS Duration ms 90 ms [facility] Q-T Interval ms 384 ms [facility] QTC Calculation (Bezet) 442 ms [facility] Calculated R [place] 79 degrees [facility] Calculated T [place] 103 degrees [facility] Interpretation EKG NORMAL SINUS RHYTHM ABNORMAL R WAVE IN V1, V6, PROBABLY LEAD PLACEMENT POSSIBLE ??LATERAL INFARCT , AGE UNDETERMINED ABNORMAL ECG NO PREVIOUS ECGS AVAILABLE Confirmed by MD Jadon, Dionisio ([id number]) on 11/29/2019 7:59:58 AM [facility] 11/29/2019 12:5 5 AM CDT 11/29/2019 7:59 AM CDT Chayo Murcia MD ECG ORDERABLES Performing Organization Address [facility] Co de Phone Number [facility] MUSE * [place] ULTRASND,PREG UTER,TRANSVAGIN, [place] ULTRASND,PREG UTERUS,IMAGE DOC (11/23/2019 11:59 AM CDT) [...] MD LAB - POINT OF CARE ORDERABLES [facility] POCT TESTING [address] [place] [address], [facility] [phone] * [place] ULTRASOUND, UTERUS (10/17/2019 4:40 PM CDT) Narrative [...] Noah Snyder RDMS ? 08/28/2019 ??3:46 PM [facility] ULTRASOUND - 1st Trimester Pt. Name: [...] of 04/08/20 based on US on 08/14/19 [employer] Worker: ?? Noah Snyder RDMS, RT(R) Images will be scanned into the record. Interpreting Physician: Giovana Walker M.D. ?? Procedure Note Noah Snyder RDMS - 08/28/2019 3:08 PM CDT [facility] OB ULTRASOUND - 1st Trimester Pt. Name: [...] of 04/08/20 based on US on 08/14/19 [place] Worker: Noah Snyder RDMS, RT(R) Images will be scanned into the record. Interpreting Physician: Giovana Walker M.D. Giovana Walker MD US ORDERABLES * VEGA STAINING PATTERNS REFLEXED (08/10/2019 8:26 AM CDT) Speckled Pattern 1:80 08/11/19 5:07 PM CDT [facility] ([facility]) Note Comment 08/11/2019 5:07 PM CDT [facility] ([facility]) Comment: A positive NUBIA result may occur in healthy individuals (low titer) or be associated with a variety of diseases. ??See interpretation chart which is not all inclusive: Pattern ?Antigen Detected ??Suggested Disease Association ? Homogeneous ??DNA(ds,ss), ? SLE - High titers ? Nucleosomes, ? Histones ?Drug-induced SLE ? Speckled ? Sm, STONER HAND, SCL-70, ??SLE,MCTD,PSS (diffuse form), ? SS-A/SS-B ? Sjogrens ? Nucleolar ?SCL-70, PM-1/SCL ??High titers Scleroderma, ? PM/DM ? Centromere ?? Centromere ?PSS (limited form) w/Crest ? syndrome variable ? Nuclear Dot ??Sp100,[id number] ??Primary Biliary Cirrhosis ? Nuclear ?GP210, ?Primary Biliary Cirrhosis Membrane ? korey A,B,C ? Blood BLOOD SPECIMEN / Unknown Lab Venipuncture / Unknown 08/10/2019 8:26 AM CDT 08/10/2019 8:42 AM CDT Narrative [facility] ([facility]) - 08/11/2019 5:07 PM CDT Performed at: ??01 - [facility] [address] [place], [place] ??[id number] Shear Operator Helper: Hang Zurita PhD, Phone: ??[phone] Juan Landry MD LAB - PATHOLOGY/CYTO LOGY ORDERABLES Performing Organization Address City/State/[facility] Co de Phone Number [facility] ([facility]) [address] [place] [address] * BETTINA-MEDRANO VIRUS ANTIBODY TO VCA IGM (08/10/2019 8:26 AM CDT) Bettina-Medrano Virus Antibody IgM Viral Capsid Antigen <10.0 0.0 - 43.9 U/mL 08/11/2019 9:56 PM CDT [facility] ([facility]) Comment: INTERPRETIVE INFORMATION: Bettina-Medrano Virus Antibody to ?Viral Capsid Antigen, IgM ??35.9 U/mL or less.......Not Detected ?36.0-43.9 U/mL..........Indeterminate - Repeat testing in ?10-14 days may be helpful. ??44.0 U/mL or greater....Detected Performed by [facility], [address] [place] [address], [facility] [place] [address] [email or web address], Theodore Diane MD, Lab. Director Blood BLOOD SPECIMEN / Unknown Lab Venipuncture / Unknown 08/10/2019 8:26 AM CDT 08/10/2019 8:43 AM CDT Juan Landry MD LAB - SEROLOGY ORDER HANNAH Performing Organization Address [facility]/ZIP Co de Phone Number [facility] ([facility]) [address] [place] [address], [facility] * (ABNORMAL) NUBIA BLOOD SCREEN W/REFLEX TITER (08/10/2019 8:26 AM CDT) Only the most recent of3 resultswithin the time period is included. NUBIA Positive(A ) 08/11/2019 5:07 PM CDT [facility] ([facility]) Comment: ? Negative ?? <1:80 ? Borderline ??1:80 ? Positive ?? >1:80 Blood BLOOD SPECIMEN / Unknown Lab Venipuncture / Unknown 08/10/2019 8:26 AM CDT 08/10/2019 8:42 AM CDT Narrative [facility] ([facility]) - 08/11/2019 5:07 PM CDT Performed at: ??01 - [facility] [id number] [place], [place] ??[id number] Shear Operator Helper: Hang Zurita PhD, Phone: ??[phone] Juan Landry MD LAB - CHEMISTRY ORDFelton AKINS Performing Organization Address City/[facility]/ZIP Co de Phone Number [facility] ([facility]) [address] [place] [address], [facility] * (ABNORMAL) CYTOMEGALOVIRUS ANTIBODY IGG/IGM BLOOD (08/10/2019 8:26 AM CDT) Only the most recent of3 resultswithin the time period is included. Cytomegalovirus Antibody IgG >10.00(H) 0.00 - 0.59 U/mL 08/11/2019 8:09 AM CDT [facility] ([facility]) Comment: ? Negative ?<0.60 ? Equivocal ?? 0.60 - 0.69 ? Positive ?>0.69 Cytomegalovirus Antibody IgM <30.0 0.0 - 29.9 AU/mL 08/11/2019 8:09 AM CDT [facility] ([facility]) Comment: ?Negative ? <30.0 ?Equivocal ??30.0 - 34.9 ?Positive ? >34.9 A positive result is generally indicative of acute infection, reactivation or persistent IgM production. Blood BLOOD SPECIMEN / Unknown Lab Venipuncture / Unknown 08/10/2019 8:26 AM CDT 08/10/2019 8:41 AM CDT Narrative [facility] ([facility]) - 08/11/2019 8:09 AM CDT Performed at: ??01 - [address], [place], [place] ??[id number] Shear Operator Helper: Hang Zurita PhD, Phone: ??[phone] Juan Landry MD LAB - CHEMISTRY STEPHON AKINS [facility] ([facility]) [address] [place] [address], [facility] * BETTINA-MEDRANO VIRUS AB TO EARLY AG IGG (08/10/2019 8:26 AM CDT) Pathologist [facility] Bettina-Medrano Virus Early Antigen Antibody IgG <9.0 0.0 - 8.9 U/mL 08/11/2019 4:08 PM CDT [facility] ([facility]) Comment: ? Negative ?< 9.0 ? Equivocal ??9.0 - 10.9 ? Positive ?>10.9 Blood BLOOD SPECIMEN / Unknown Lab Venipuncture / Unknown 08/10/2019 8:26 AM CDT 08/10/2019 8:46 AM CDT Narrative [facility] ([facility]) - 08/11/2019 4:08 PM CDT Performed at: ??01 - [id number] [place], [place] ??[id number] Shear Operator Helper: Hang Zurita PhD, Phone: ??[phone] Juan Lnadry MD LAB - CHEMISTRY STEPHON AKINS [facility] ([facility]) [address] [place] [address], [facility] * HCV COMMENT (08/07/2019 3:07 PM CDT) Comment [facility] Comment: Non reactive HCV antibody screen is consistent with no HCV infection, unless recent infection is suspected or other evidence exists to indicate HCV infection. 08/07/2019 3:07 PM CDT 08/07/2019 Narrative Resulting Agency Comment [facility]: [facility] [address] ??[facility] [phone] Adelfo Champion MD LAB - CHEMISTRY ORDE MABLE [facility] INSURANCE BILL [address] [place] [address] * HEPATITIS B + C PANEL (08/07/2019 [...] Resulting Agency Comment [facility] performed [facility]: [facility] [address] ??[facility] [phone] Adelfo Champion MD LAB - SEROLOGY ORDER HANNAH Performing Organization Address [facility]/ZIP Co de Phone Number [facility] INSURANCE BILL [address] [place] [address] * PROGESTERONE (08/07/2019 3:07 PM CDT) Progesterone 32.1 ng/mL [facility] INSURANCE BILL Comment: ?Follicular phase ? 0.1 [...] Resulting Agency Comment Lab Testing performed at: [facility] [address] [facility] ??[facility] [phone] Giovana Walker MD LAB - CHEMISTRY STEPHON AKINS Performing Organization Address [facility]/ZIP Co de Phone Number [facility] [address] [place] [address] * CHLAMYDIA + GC + TRICH DNA AMPL (08/03/2019 10:29 AM CDT) Chlamydia trachomatis HU Negative Negative [facility] INSURANCE BILL GC DNA Probe Negative Negative [facility] INSURANCE BILL Trichomonas vaginalis by HU Negative Negative [facility] INSURANCE BILL Microbiology ENTIRE ENDOCERVIX / Unknown 08/03/2019 10:29 AM CDT 08/03/2019 Narrative Resulting Agency Comment Lab Testing performed at: [address] ??[place] [id number] Giovana Walker MD LAB - MICROBIOLOGY O RDERABLES Performing Organization Address [facility] Co de Phone Number [facility] INSURANCE BILL [address] [place] [address] * BILIRUBIN DIRECT (06/29/2019 10:51 AM CDT) Only the most recent of93 resultswithin the time period is included. Bilirubin Direct 0.31 0.11 - 0.64 mg/dL 06/29/2019 11:40 AM CDT [facility] Blood BLOOD SPECIMEN / Unknown Lab Venipuncture / Unknown 06/29/2019 10:51 AM CDT 06/29/2019 11:11 AM CDT Biju Walker MD LAB - CHEMISTRY STEPHON AKINS [facility] [address] [place] [address] * HGB HCT PANEL (08/02/2018 4:33 PM CDT) Only the most recent of9 resultswithin the time period is included. Hemoglobin 12.6 12.0 - 15.6 gm/dL 08/02/2018 4:59 PM CDT [facility] Hematocrit 37.6 35.9 - 45.5 % 08/02/2018 4:59 PM CDT [facility] Blood BLOOD SPECIMEN / Unknown Venipuncture / Unknown 08/02/2018 4:33 PM CDT 08/02/2018 4:40 PM CDT Biju Walker MD LAB - HEMATOLOGY ORD ERABLES [facility] [address] [place] [address] * NEEDLE BIOPSY, LIVER (08/02/2018 12:39 PM [...] Procedure Code(s): ? --- Professional --- ? 91096, Biopsy of liver, needle; percutaneous ? 80828, Ultrasonic guidance for needle placement (eg, biopsy, aspiration, ? injection, localization device), imaging supervision and interpretation ? --- Technical --- ? 47117, Biopsy of liver, needle; percutaneous ? 01412, Ultrasonic guidance for needle placement (eg, biopsy, aspiration, ? injection, localization device), imaging supervision and interpretation Diagnosis Code(s): ? --- Professional --- ? R74.9, Abnormal serum enzyme level, unspecified ? --- Technical --- ? R74.9, Abnormal serum enzyme level, unspecified CPT copyright 2017 [employer]. All rights reserved. The codes documented in this report are preliminary and upon component inspector review may be revised to meet current compliance requirements. Dr. Biju Walker Biju Walker MD 08/02/2018 12:24:00 PM This report has been signed electronically. Number of Addenda: 0 Note Initiated On: 08/01/2018 12:39 PM Procedure Date: ? 08/02/2018 12:39:00 PM ? This report has been signed electronically. [facility] 08/02/2018 12:3 9 PM CDT Biju Walker MD GI PROCEDURE ORDERAB LES [facility] [address] [facility] [place] [address] * US GUIDE NEEDLE PLACEMENT (08/02/2018 12:29 PM CDT) Only the most recent of7 resultswithin the time period is included. Narrative [facility] - 08/03/2018 12:10 PM CDT No Dictation. Biju Walker MD US ORDERABLES [facility] [address] [place] [address] * VIRAL CULTURE MISC (08/02/2018 12:21 PM CDT) Only the most recent of8 resultswithin the time period is included. Viral Culture No virus isolated. 08/11/2018 8:27 AM CDT [facility] ([facility]) Microbiology NEEDLE BIOPSY OF LIVER / Unknown Collection / Unknown 08/02/2018 12:21 PM CDT 08/02/2018 1:00 PM CDT Narrative [facility] ([facility]) - 08/11/2018 8:27 AM CDT Performed at: ??01 - [facility] [address] ??[id number] Shear Operator Helper: Justin Stapleton MD, Phone: ??[phone] Biju Walker MD LAB - MICROBIOLOGY O RDERABLES Performing Organization Address City/[facility]/ZIP Co de Phone Number [facility] ([facility]) [address] [place] [address] * GROSS + MICRO EXAM (STL) (08/02/2018 12:16 PM CDT) Only the most recent of11 resultswithin the time period is included. Case Report Surgical Pathology Report ? Case: [id number] ? Authorizing Provider: ??Biju Walker MD ? Collected: ? 08/02/2018 12:16 PM ? Ordering Location: ? [facility] ?Received: ?08/02/2018 12:55 PM ? Pathologist: ? Tesfaye Beckman MD ? Specimen: ?Liver, do EM also ? 08/04/2018 4:47 PM [facility] Final Diagnosis Liver, Allograft, Percutaneous Needle [...] + 1 = 3. The previous case ([id number]) has been reviewed: the current case shows less inflammation than the previous case. Preliminary results were reported to Dr. Walker on 08/03/18 at 5:00 p.m. 08/04/2018 4:47 PM [facility] Clinical History The patient is a [...] acute rejection and ischemia. 08/04/2018 4:47 PM [facility] Gross Description Submitted fixed in formalin [...] possible ultrastructural analysis. (CT/na) 08/04/2018 4:47 PM [facility] Microscopic Description 2 H&E, 1 trichrome, [...] cytomegalovirus (CMV) is negative. 08/04/2018 4:47 PM [facility] Disclaimer The performance characteristics of all immunohistochemical and indirect immunofluorescence stains (if any) cited in this report were determined by the [facility] in compliance with Clinical Laboratory Improvement Amendments of 1988 (CLIA'88) regulations. Some of these tests rely on the use of analyte-specific reagents and are subject to specific labeling requirements by the U.S. Food and Drug Administration (FDA). Such tests were developed by the [facility] and have not been cleared or approved by the FDA. The FDA has determined that such clearance or approval is not necessary. These tests are used for clinical purposes and should not be regarded as investigational or for research. This case has been personally reviewed and interpreted by the attending (teaching) pathologist. 08/04/2018 4:47 PM CDT [facility] Embedded Images 08/04/2018 4:47 PM CDT [facility] Pathology/Cytolo gy ENTIRE LIVER / Unknown 08/02/2018 12:16 PM CDT 08/02/2018 12:55 PM CDT Biju Walker MD LAB - PATHOLOGY/CYTO LOGY ORDERABLES Performing Organization Address City/[facility]/ZIP Co de Phone Number [facility] [address] [place] [address] * PREPARE (CROSSMATCH) RBC UNIT(S), 1 Units (08/02/2018 11:00 AM CDT) Only the most recent of4 resultswithin the time period is included. Product Code [id number] [facility] Unit Donor # [id number] [facility] B[facility] LAB ABO Donor Type O [facility] Rh Type Unit POS [facility] Unit Status Ret'd [facility] ABO Rh Type Unit OPOS [facility] Donor Unit Expiration Date [id number] [facility] Blood Type Barcode [address] [facility] Blood Bank BLOOD SPECIMEN / Unknown 08/02/2018 11:00 AM CDT Biju Wakler MD LAB - BLOOD BANK ORD ERABLES Performing Organization Address City/[facility]/ZIP Co de Phone Number [facility] [address] [place] [address] * US LIVER W DOPPLER (06/17/2018 11:14 AM [employer]RANG[employer]) Only the most recent of18 resultswithin the time period is included. Anatomical Region Laterality Modality Ultrasound Impressions 06/17/2018 12:01 PM [employer]ANG[employer] Normal sonographic appearance of transplant liver with patent vasculature. Parvus et tardus waveform of the right hepatic artery with decreased resistive indices indicative of a proximal stenosis. Dictated by Giuseppe Cleveland MD (vice president safety). I, Leticia Sheppard, have personally reviewed the images and I agree with this report. Reading Radiologist: Leticia Sheppard MD on 06/17/2018 at 12:01 PM Narrative 06/17/2018 12:01 PM [employer] EXAMINATION: Liver ultrasound with Doppler HISTORY: 18-year-old [...] PCR QUANTITATIVE WHOLE BLOOD (05/06/2018 9:16 AM [employer]IAGE ARRANGER) Only the most recent of34 resultswithin the time period is included. Bettina-Medrano Virus DNA PCR Quantitative Negative Negative copies/mL 05/10/2018 6:16 AM ARTIFICIAL FOLIAGE ARRANGER [facility] ([facility]) Comment: No EBV DNA detected. The quantitative range of this assay is 100 to 1 million copies/mL. This test was developed and its performance characteristics determined by [facility]. ??It has not been cleared or approved by the Food and Drug Administration. ??The FDA has determined that such clearance or approval is not necessary. Bettina-Medrano PCR Quant log 10 TNP [id number] L 05/10/2018 6:16 AM [facility] Comment: Unable to calculate result since non-numeric result obtained for component test. Blood BLOOD SPECIMEN / Unknown Lab Venipuncture / Unknown 05/06/2018 9:16 AM [employer] AR[employer]ANGER 05/06/2018 9:39 AM ARTIFICIAL FOLIAGE ARRANGER Narrative [facility] ([facility]) - 05/10/2018 6:16 AM ARTIFICIAL FOLIAGE ARRANGER Performed at: ??01 - [facility] ??[id number] Shear Operator Helper: Justin Stapleton MD, Phone: ??[phone] Biju Walker MD LAB - SEROLOGY ORDER HANNAH Performing Organization Address [facility]/State/ZIP Co de Phone Number [facility] ([facility]) [address] [place] [address] * CYTOMEGALOVIRUS DNA RT PCR QUANT BLOOD (04/15/2018 10:31 AM ART[employer]IAL FOLIAGE ARRANGER) Only the most recent of2 resultswithin the time period is included. [facility] Cytomegalovirus DNA Quantitative PCR Negative Negative IU/mL 04/20/2018 6:06 AM [facility] ([facility]) Comment: No CMV DNA detected. The quantitative range of this assay is 200 to 1 million IU/mL. This test was developed and its performance characteristics determined [facility]. It has not been cleared or approved by the Food and Drug Administration. The FDA has determined that such clearance or approval is not necessary. log10 CMV QN DNA Plasma TNP log10 IU/mL 04/20/2018 6:06 AM [facility] ([facility]) Comment: Unable to calculate result since non-numeric result obtained for component test. Blood BLOOD SPECIMEN / Unknown Lab Venipuncture / Unknown 04/15/2018 10:31 AM [employer] 04/15/2018 10:42 AM [facility] Narrative [facility] ([facility]) - 04/20/2018 6:06 AM [employer]IAL FOLIAGE ARRANGER Performed at: ??01 - [address] ??[id number] Shear Operator Helper: Justin Stapleton MD, Phone: ??[phone] Biju Walker MD LAB - CHEMISTRY STEPHON AKINS Performing Organization Address [facility]/ZIP Co de Phone Number [facility] ([facility]) [address] [place] [address] * VITAMIN D (25-HYDROXY) (04/15/2018 10:31 AM [facility]) Only the most recent of10 resultswithin the time period is included. Pathologist [facility] Vitamin D, 25 Hydroxy 30.4 20 - 100 ng/mL 04/15/2018 12:43 PM [facility] Blood BLOOD SPECIMEN / Unknown Lab Venipuncture / Unknown 04/15/2018 10:31 AM [employer] 04/15/2018 10:42 AM [facility] Narrative [facility] - 04/15/2018 12:43 PM [facility] Vitamin D Status: ?Deficient ? <10 ?? ng/mL ? Borderline ?10-20 ng/mL ?Sufficient ?>20 ?? ng/mL ?Toxic ? >100 ??ng/mL Biju Walker MD LAB - CHEMISTRY STEPHON AKINS Performing Organization Address [facility] Co de Phone Number [facility] [address] [place] [address] * ALPHA FETOPROTEIN BLOOD TUMOR (04/15/2018 10:31 AM [facility]) Only the most recent of2 resultswithin the time period is included. Pathologist [facility] Alpha-Fetoprotei n Tumor Marker 4.9 0.0 - 8.3 ng/mL 04/16/2018 4:10 AM [facility] ([facility]) Comment:Melodie ECLIA methodol ogy Blood BLOOD SPECIMEN / Unknown Lab Venipuncture / Unknown 04/15/2018 10:31 AM [employer]ER 04/15/2018 10:42 AM [facility] Narrative [facility] ([facility]) - 04/16/2018 4:10 AM [employer] ARRANGER Performed at: ??01 - [facility] [place] [address] [place], [place] ??[id number] Shear Operator Helper: Hang Zurita PhD, Phone: ??[phone] Biju Walker MD LAB - CHEMISTRY ORDE MABLE [facility] ([facility]) [address] [place] [address] * (ABNORMAL) DIFFERENTIAL MANUAL (03/07/2018 8:44 AM [employer]) Only the most recent of77 resultswithin the time period is included. WBC Auto 6.0 x10E9/L 03/07/2018 11:37 AM [facility] WBC Corrected 4.5 - 11.0 x10E9/L 03/07/2018 11:37 AM [facility] nRBC /100 WBC 03/07/2018 11:37 AM [facility] Neutrophil % Manual 59 31 - 78 % 03/07/2018 11:37 AM [facility] Lymphocytes % Manual 25 13 - 54 % 03/07/2018 11:37 AM [facility] Monocytes % Manual 9 4 - 13 % 03/07/2018 11:37 AM [facility] Eosinophils % Manual 3 0 - 8 % 03/07/2018 11:37 AM [facility] Atypical Lymphocyte % Manual 4(H) <=0 % 03/07/2018 11:37 AM [facility] Cells Counted 100 # cells 03/07/2018 11:37 AM [facility] Platelet Estimation Adequate platelets Normal, Adequate platelets 03/07/2018 11:37 AM [facility] RBC Morphology Normal 03/07/2018 11:37 AM [facility] WBC Morph Normal 03/07/2018 11:37 AM [facility] Blood BLOOD SPECIMEN / Unknown Lab Venipuncture / Unknown 03/07/2018 8:44 AM [employer] 03/07/2018 8:53 AM [employer]ER Biju Walker MD LAB - HEMATOLOGY ORD ERAFANNY [facility] [place] [address] * [place] ENDO NASAL SINUS BX POLYP DEBRID ANTONIO [...] Todd MD PROCEDURE/MINOR SURG ICAL ORDERABLES * [place] CTRL NOSEBLEED,ANTER,COMPLEX (11/29/2017 1:33 PM CDT) Narrative [...] Negative IU/mL 09/01/2017 3:21 PM CDT [facility] ([facility]) Comment: No CMV DNA detected. The quantitative range of this assay is 200 to 1 million IU/mL. This test was developed and its performance characteristics determined by [facility]. It has not been cleared or approved by the Food and Drug Administration. The FDA has determined that such clearance or approval is not necessary. log10 CMV QN DNA Plasma TNP log10 IU/mL 09/01/2017 3:[address] [facility] Comment: Unable to calculate result since non-numeric result obtained for component test. Blood BLOOD SPECIMEN / Unknown Lab Venipuncture / Unknown 08/30/2017 7:27 AM CDT 08/30/2017 8:17 AM CDT Narrative [facility] ([facility]) - 09/01/2017 3:21 PM CDT Performed at: ??01 - [address] ??[id number] Shear Operator Helper: Hair Bryant MD, Phone: ??[phone] Biju Walker MD LAB - MICROBIOLOGY O RDERABLES [facility] ([facility]) [address] [place] [address] * PARVOVIRUS B19 PCR QUANT (07/29/2017 8:28 AM CDT) Pathologist [facility] Parvovirus B19 PCR Negative Negative copies/mL 08/03/2017 2:13 PM [facility]T [facility] Comment: No Parvovirus B19 DNA detected. The quantitative range of this assay is 500 to 10 million copies/mL. This test was developed and its performance characteristics determined by [facility]. It has not been cleared or approved by the Food and Drug Administration. The FDA has determined that such clearance or approval is not necessary. log10 Parvo PCR TNP [id number] L 08/03/2017 2:13 PM CDT [facility] ([facility]) Comment: Unable to calculate result since non-numeric result obtained for component test. Blood BLOOD SPECIMEN / Unknown Lab Venipuncture / Unknown 07/29/2017 8:28 AM CDT 07/29/2017 8:32 AM CDT N[facility]ative [facility] - 08/03/2017 2:13 PM CDT Performed at: ??01 - [address] ??[id number] Shear Operator Helper: Hair Bryant MD, Phone: ??[phone] Jessica Ruano MD LAB - SEROLOGY OR DERABLES Performing Organization Address City/[facility]/ZIP Co de Phone Number [facility] ([facility]) [address] [place] [address] * HERPES VIRUS 6 DNA QUAL PCR (07/29/2017 8:28 AM CDT) [facility] Herpesvirus 6 DNA Qualitative RT-PCR See Scanned Report 08/02/2017 1:03 AM CDT [facility] Other BLOOD SPECIMEN / Unknown Lab Venipuncture / Unknown 07/29/2017 8:28 AM CDT 07/29/2017 8:32 AM CDT Jessica Ruano MD LAB - SEROLOGY OR DERABLES [facility] [place] [address] * RESPIRATORY PATHOGEN PANEL BY PCR (07/28/2017 3:26 PM CDT) [facility] Adenovirus PCR Not detected Not detected, Invalid, Indeterminate 07/28/2017 11:29 PM [facility]CRO[facility] Human Metapneumovirus PCR Not detected Not detected, Invalid, Indeterminate 07/28/2017 11:29 PM [facility] Human Rhinovirus/Entero virus PCR Not detected Not detected, Invalid, Indeterminate 07/28/2017 11:29 PM [facility] Influenza A Non Subtyped PCR Not detected Not detected, Invalid, Indeterminate 07/28/2017 11:29 PM [facility] Influenza A H1 PCR Not detected Not detected, Invalid, Indeterminate 07/28/2017 11:29 PM [facility] Influenza A H3 PCR Not detected Not detected, Invalid, Indeterminate 07/28/2017 11:29 PM [facility] Influenza A H1 2009 PCR Not detected Not detected, Invalid, Indeterminate 07/28/2017 11:29 PM [facility] Influenza B PCR Not detected Not detected, Invalid, Indeterminate 07/28/2017 11:29 PM [facility] [facility] Mycoplasma pneumoniae PCR Not detected Not detected, Invalid, Indeterminate 07/28/2017 11:29 PM [facility] Parainfluenza Virus 1 PCR Not detected Not detected, Invalid, Indeterminate 07/28/2017 11:29 PM [facility] Parainfluenza Virus 2 PCR Not detected Not detected, Invalid, Indeterminate 07/28/2017 11:29 PM [facility] Parainfluenza Virus 3 PCR Not detected Not detected, Invalid, Indeterminate 07/28/2017 11:29 PM [facility] Parainfluenza Virus 4 PCR Not detected Not detected, Invalid, Indeterminate 07/28/2017 11:29 PM [facility] Respiratory Syncytial Virus PCR Not detected Not detected, Invalid, Indeterminate 07/28/2017 11:29 PM [facility] Bordetella pertussis PCR Not detected Not detected, Invalid 07/28/2017 11:29 PM [facility] Coronavirus PCR Not detected Not detected, Invalid, Indeterminate 07/28/2017 11:29 PM [facility] Microbiology NASOPHARYNGEAL SWAB / Unknown Collection / Unknown 07/28/2017 3:26 PM CDT 07/28/2017 3:34 PM [facility] MICROBIOLOGY - 07/28/2017 11:29 PM CDT Coronavirus PCR detects the following coronaviruses: 229E, HKU1, NL63, OC43. Jojo Graf DO LAB - MICROB IOLOGY ORDERABLES [facility] MICROBIOLOGY [address] [place] [address], [facility] [phone] * OCCULT BLOOD FECES (07/28/2017 3:26 PM CDT) [facility] Occult Blood Negative Negative 07/28/2017 4:12 PM CDT [facility] Stool STOOL SPECIMEN / Unknown Collection / Unknown 07/28/2017 3:26 PM CDT 07/28/2017 3:34 PM CDT Angelika L Kalin DO LAB - BODY FLUID ORD ERABLES Performing Organization Address City/[facility] Co de Phone Number [facility] [place] [address] * CYTOMEGALOVIRUS DNA RT-PCR QUANT (VIRACOR) (07/28/2017 8:24 AM CDT) Only the most recent of2 resultswithin the time period is included. [facility] Cytomegalovirus DNA Quantitative PCR See Scanned Report 07/30/2017 1:00 PM CDT [facility] Other BLOOD SPECIMEN / Unknown Lab Venipuncture / Unknown 07/28/2017 8:24 AM CDT 07/28/2017 8:28 AM CDT Anjelica Hang Sadi DO LAB - SEROLOGY ORDER HANNAH Performing Organization Address City/[facility] Co de Phone Number [facility] [address] [place] [address] * HLA SINGLE BEAD TEST PANEL (07/28/2017 8:24 AM CDT) Only the most recent of4 resultswithin the time period is included. [facility] HLA Single Bead Test See Scanned Report 08/05/2017 7:43 PM CDT [facility] Blood BLOOD SPECIMEN / Unknown Lab Venipuncture / Unknown 07/28/2017 8:24 AM CDT 07/28/2017 8:29 AM CDT Anjelica Avitia DO LAB - SEROLOGY ORDER HANNAH [facility] [address] [place] [address], [facility] [phone] * CULTURE MRSA (07/27/2017 9:38 PM CDT) Only the most recent of2 resultswithin the time period is included. Culture Negative for methicillin-resist ant Staphylococcus aureus (MRSA) IZABELA 07/29/2017 8:17 AM CDT [facility] MICROBIOLOGY Microbiology SPECIMEN FROM NASAL FOSSAE / Unknown Collection / Unknown 07/27/2017 9:38 PM CDT 07/27/2017 10:24 PM CDT Anjelica Avitia DO LAB - MICROBIOLOGY O RDERABLES Performing Organization Address City/[facility]/ZIP Co de Phone Number [facility] MICROBIOLOGY [address] [place] [address], [facility] [phone] * XR CHEST 1VW (07/27/2017 5:53 PM CDT) Only the most recent of4 resultswithin the time period is included. Anatomical Region Laterality Modality Chest Radiographic Joanne ging 07/28/2017 7:21 AM CDT Impressions 07/28/2017 7:30 AM CDT Clear lungs. Dictated by Tho Bliss MD (vice president safety). I, Kwadwo Zapata, have personally reviewed the [...] Clear lungs. Dictated by Tho Bliss MD (vice president safety). I, Kwadwo Zapata, have personally reviewed the images and I agree with this report. Missy Jaffe MD DIAGNOSTIC IMAGING O RDERABLES * CULTURE BLOOD (07/27/2017 4:57 PM CDT) Only the most recent of8 resultswithin the time period is included. [facility] Culture No growth day 5 IZABELA 08/01/2017 9:00 PM CDT [facility]CROBIOLOG[facility] Blood BLOOD SPECIMEN / Unknown Line Draw / Unknown 07/27/2017 4:57 PM CDT 07/27/2017 5:14 PM CDT Cecelia Oden MD LAB - MICROBIOLOGY O RDLOVE [facility] MICROBIOLOGY [address] [place] [address], [facility] [phone] * (ABNORMAL) URINALYSIS W/MICROSCOPIC REFLEX TO CULTURE (07/27/2017 4:08 PM CDT) Only the most recent of2 resultswithin the time period is included. Color UA Anjelica(A) Straw, Yellow 07/27/2017 4:36 PM CDT [facility] Clarity UA Slt Cloudy(A) Clear 07/27/2017 4:36 PM CDT [facility] Glucose UA Negative Negative 07/27/2017 4:36 PM CDT [facility] Bilirubin UA Negative Negative 07/27/2017 4:36 PM T [facility] Ketone UA Negative Negative 07/27/2017 4:36 PM T [facility] Specific Morrow UA 1.015 1.005 - 1.030 07/27/2017 4:36 PM T [facility] Blood UA Negative Negative 07/27/2017 4:36 PM T [facility] pH UA 5.0 5.0 - 8.0 pH 07/27/2017 4:36 PM T [facility] Protein UA Negative Negative 07/27/2017 4:36 PM T [facility] Urobilinogen UA Negative Negative mg/dL 07/27/2017 4:36 PM T [facility] Nitrite UA Negative Negative 07/27/2017 4:36 PM T [facility] Leukocyte UA Negative Negative 07/27/2017 4:36 PM T [facility] RBC UA 0-5 0-5, None Seen # /hpf 07/27/2017 4:36 PM T [facility] WBC UA 0-5 0-5, None Seen # /hpf 07/27/2017 4:36 PM T [facility] Bacteria UA Trace(A) None Seen 07/27/2017 4:36 PM T [facility] Squamous Epithelial Cells 0-2 None Seen, 0-2, 3-5 /hpf 07/27/2017 4:36 PM T [facility] Hyaline Casts 0-2 None Seen, 0-2 # /lpf 07/27/2017 4:36 PM [facility] Reflex Status Culture not indicated 07/27/2017 4:36 PM [facility] Urine URINE SPECIMEN OBTAINED BY CLEAN CATCH PROCEDURE / Unknown Collection / Unknown 07/27/2017 4:08 PM CDT 07/27/2017 4:28 PM CDT Narrative [facility] - 07/27/2017 4:36 PM CDT Kiel Martinez DO LAB - URINALYSIS ORD ERABLES [facility] [address] [place] [address] * EKG 15-LEAD (07/27/2017 11:54 AM CDT) Only the most recent of3 resultswithin the time period is included. Ventricular Rate 112 BPM CG MUSE Atrial Rate 112 BPM CG MUSE P-R Interval 122 ms CG MUSE QRS Duration ms 84 ms CG MUSE Q-T Interval ms 312 ms CG MUSE QTC Calculation (Bezet) 423 ms CG MUSE Calculated P [place] 80 degrees CG MUSE Calculated R [place] 53 degrees CG MUSE Calculated T [place] 16 degrees CG MUSE Interpretation EKG Sinus tachycardia Otherwise normal ECG When compared with ECG of 25-AUG-2012 21:37, Sinus tachycardia present. Confirmed by CODY HUTSON ([id number]) on 08/02/2017 3:09:16 PM CG MUSE 07/27/2017 11:5 4 AM CDT 08/02/2017 3:09 PM CDT Kile Martinez DO ECG ORDERABLES CG MUSE * [...] resultswithin the time period is included. Pathologist [facility] PTT 22.9 21.0 - 32.0 sec 07/27/2017 12:44 PM CDT [facility] Blood BLOOD SPECIMEN / Unknown Venipuncture / Unknown 07/27/2017 11:22 AM CDT 07/27/2017 11:33 AM CDT Narrative [facility] - 07/27/2017 12:44 PM CDT Heparin Therapeutic Range for PTT: 47.7 - 68.6 seconds. Kiel Martinez DO LAB - COAGULATION OR DERABLES [facility] [address] [phone] * (ABNORMAL) CK BLOOD (07/27/2017 11:22 AM CDT) Pathologist [facility] CK <7(L) 29 - 168 U/L 07/27/2017 11:54 AM CDT [facility] Blood BLOOD SPECIMEN / Unknown Venipuncture / Unknown 07/27/2017 11:22 AM CDT 07/27/2017 11:42 AM CDT Kiel Martinez DO LAB - CHEMISTRY STEPHON AKINS [facility] [place] [address] * NEEDLE BIOPSY, LIVER (07/23/2017 6:31 AM CDT) Report Endoscopy POC _ Patient Name: Lili Aguila ? Date of : 2000 ? Admit Type: Inpatient Age: 17 ? Gender: Female Attending MD: Biju Walker MD ?Order #: [id number] _ Procedure: ? Liver biopsy Indications: ? [...] Procedure Code(s): ? --- Professional --- ? 94417, Biopsy of liver, needle; percutaneous ? 65619, Ultrasonic guidance for needle placement (eg, biopsy, aspiration, ? injection, localization device), imaging supervision and interpretation ? --- Technical --- ? 49985, Biopsy of liver, needle; percutaneous ? 16365, Ultrasonic guidance for needle placement (eg, biopsy, aspiration, ? injection, localization device), imaging supervision and interpretation Diagnosis Code(s): ? --- Professional --- ? R74.9, Abnormal serum enzyme level, unspecified ? --- Technical --- ? R74.9, Abnormal serum enzyme level, unspecified CPT copyright 2015 [employer]. All rights reserved. The codes documented in this report are preliminary and upon component inspector review may be revised to meet current compliance requirements. Dr. Biju Walker Biju Walker MD 07/23/2017 1:20:15 PM This report has been signed electronically. Number of Addenda: 0 Note Initiated On: 07/22/2017 6:31 AM Procedure Date: ? 07/23/2017 6:31:00 AM ? This report has been signed electronically. [facility] 07/23/2017 6:31 AM CDT Biju Walker MD GI PROCEDURE ORDERAB LES Performing Organization Address City/State/[facility] Co de Phone Number [facility] [address] [facility] [place] [address] * HCG URINE QUALITATIVE (07/22/2017 9:17 PM CDT) Only the most recent of7 resultswithin the time period is included. hCG Qualitative Urine Negative Negative 07/22/2017 9:31 PM CDT [facility] Urine URINE / Unknown Collection / Unknown 07/22/2017 9:17 PM CDT 07/22/2017 9:23 PM CDT Missy Jaffe MD LAB - URINALYSIS ORD ERABLES [facility] [place] [address] * XR CHEST FOR PICC PLMT (07/16/2017 [...] is included. HCG Qual Urine Negative Negative [facility] POCT TESTING QC Verified Yes Yes [facility] PO CT TESTING Urine URINE / Unknown 07/14/2017 1 0:00 AM CDT Biju Walker MD LAB - POINT OF CARE ORDERABLES Performing Organization Address City/State/[facility] de Phone Number [facility] POCT TESTING [address] [facility] [place] [address], [facility] [phone] * NEEDLE BIOPSY, LIVER (07/14/2017 8:55 AM [...] Procedure Code(s): ? --- Professional --- ? 63460, Biopsy of liver, needle; percutaneous ? 55905, Ultrasonic guidance for needle placement (eg, biopsy, aspiration, ? injection, localization device), imaging supervision and interpretation ? --- Technical --- ? 01341, Biopsy of liver, needle; percutaneous ? 88635, Ultrasonic guidance for needle placement (eg, biopsy, aspiration, ? injection, localization device), imaging supervision and interpretation Diagnosis Code(s): ? --- Professional --- ? R74.9, Abnormal serum enzyme level, unspecified ? --- Technical --- ? R74.9, Abnormal serum enzyme level, unspecified CPT copyright 2015 [employer]. All rights reserved. The codes documented in this report are preliminary and upon component inspector review may be revised to meet current compliance requirements. Dr. Biju Walker Biju Walker MD 07/14/2017 12:27:14 PM This report has been signed electronically. Number of Addenda: 0 Note Initiated On: 07/13/2017 8:55 AM Procedure Date: ? 07/14/2017 8:55:00 AM ? This report has been signed electronically. [facility] 07/14/2017 8:55 AM CDT Biju Walker MD GI PROCEDURE ORDERAB LES Performing Organization Address City/State/[facility] Co de Phone Number [facility] [address] [facility] [place] [address] * NEEDLE BIOPSY, LIVER (06/03/2017 7:37 AM [employer]) Report Endoscopy POC _ Patient Name: Lili Aguila ? Date of : 2000 ? Admit Type: Outpatient Age: 17 ? Gender: Female Attending MD: Biju Walker MD ?Order #: [id number] _ Procedure: ? Liver biopsy Indications: ? [...] specimen was sent ? for histology. The [employer] gun was used with ultrasound to dionisio [...] Procedure Code(s): ? --- Professional --- ? 85240, Biopsy of liver, needle; percutaneous ? --- Technical --- ? 09211, Biopsy of liver, needle; percutaneous Diagnosis Code(s): ? --- Professional --- ? R74.9, Abnormal serum enzyme level, unspecified ? --- Technical --- ? R74.9, Abnormal serum enzyme level, unspecified CPT copyright 2015 [employer]. All rights reserved. The codes documented in this report are preliminary and upon component inspector review may be revised to meet current compliance requirements. Dr. Biju Walker Biju Walker MD 06/03/2017 12:35:22 PM This report has been signed electronically. Number of Addenda: 0 Note Initiated On: 06/02/2017 7:37 AM Procedure Date: ? 06/03/2017 7:37:00 AM ? This report has been signed electronically. [facility] 06/03/2017 7:37 AM [employer] Biju Walker MD GI PROCEDURE ORDERAB LES Performing Organization Address City/State/[facility] Co de Phone Number [facility] [address] [facility] [place] [address] * BK VIRUS PCR QUANTITATIVE URINE (05/25/2017 8:07 AM [employer]) BK Virus Quantitative Source Urine Urine 05/27/2017 10:16 PM [employer]ER [employer] ([facility]) BK Virus Quantitative Urine <390 cpy/mL 05/27/2017 10:16 PM [employer]AGE AR[employer]ER [facility] ([facility]) BK Virus DNA Quantitative Log Copy/mL Urine <2.6 log cpy/mL 05/27/2017 10:16 PM [employer] ([facility]) Interp BK Virus Quant Urine Not Detected Not Detected 05/27/2017 10:16 PM [employer] ([facility]) Comment: INTERPRETIVE DATA: BK Virus Detection by [...] methodologies. Test developed and characteristics determined by [facility]. See Compliance Statement A: [email or web address] FIMA/CS Performed by [facility], [address] [place] [address] [email or web address], Theodore Diane MD, Lab. Director Urine URINE / Unknown Collection / Unknown 05/25/2017 8:07 AM [employer] 05/25/2017 10:40 AM [employer]ER Biju Walker MD LAB - MICROBIOLOGY O RDERABLES [employer] ([facility]) [address] [place], [place] [id number] [place] [address] * HERPES VIRUS 6 QUANT RT PCR (05/25/2017 7:07 AM [employer]IAGE AR[employer]ANGER) [facility] Human Herpesvirus 6 Quant PCR See Scanned Report 05/27/2017 7:27 AM [employer] [facility] Other BLOOD SPECIMEN / Unknown Collection / Unknown 05/25/2017 7:07 AM [employer] 05/25/2017 7:39 AM [employer]ER Biju Walker MD LAB - SEROLOGY ORDER HANNAH Performing Organization Address City/[facility]/ZIP Co de Phone Number [facility] [place] [address] * HEPATITIS SCREEN ACUTE (05/25/2017 7:07 AM [employer]ER) Only the most recent of4 resultswithin the time period is included. Pathologist [facility] HAV Antibody IgM Non Reactive Non Reactive 05/25/2017 9:03 AM [facility] HBsAg Non Reactive Non Reactive 05/25/2017 9:03 AM [facility] HBc Antibody IgM Non Reactive Non Reactive 05/25/2017 9:03 AM [facility] HCV Antibody Screen Non Reactive Non Reactive 05/25/2017 9:03 AM [facility] HCV S/C Ratio 0.11 0.00 - 0.79 05/25/2017 9:03 AM [facility] Comment: Ljnblr-mp-qbauji ratio (S/CO) <0.80:?? Non Reactive Blood BLOOD SPECIMEN / Unknown Lab Venipuncture / Unknown 05/25/2017 7:07 AM [employer] 05/25/2017 7:39 AM [employer] AR[employer]ANGER Narrative [facility] - 05/25/2017 9:03 AM [employer]ER Non Reactive - Antibodies to Hepatitis C virus (HCV) were not detected, result does not exclude early acute HCV infection. Biju Walker MD LAB - CHEMISTRY STEPHON AKINS [facility] Organization Address City/State/ZIP Co de Phone Number [facility] [address] [facility] [place] [address] * NEEDLE BIOPSY, LIVER (05/17/2017 6:33 AM [employer] AR[employer]ANGER) Report Endoscopy POC _ Patient Name: Lili Aguila ? Date of : 2000 ? Admit Type: Outpatient Age: 17 ? Gender: Female Attending MD: Biju Walker MD ?Order #: [id number] _ Procedure: ? Liver biopsy Indications: ? [...] Procedure Code(s): ? --- Professional --- ? 07703, Biopsy of liver, needle; percutaneous ? --- Technical --- ? 30299, Biopsy of liver, needle; percutaneous Diagnosis Code(s): ? --- Professional --- ? R74.9, Abnormal serum enzyme level, unspecified ? --- Technical --- ? R74.9, Abnormal serum enzyme level, unspecified CPT copyright 2015 [employer]. All rights reserved. The codes documented in this report are preliminary and upon component inspector review may be revised to meet current compliance requirements. Dr. Biju Walker Biju Walker MD 05/17/2017 11:04:12 AM This report has been signed electronically. Number of Addenda: 0 Note Initiated On: 05/17/2017 6:33 AM Procedure Date: ? 05/17/2017 6:33:19 AM ? This report has been signed electronically. [facility] 05/17/2017 6:33 AM [employer]ER Biju Walker MD GI PROCEDURE ORDERAB LES Performing Organization Address City/[facility] Co de Phone Number [facility] [address] [place] [address] * HLA TYPING DR (03/29/2017 2:34 PM [employer]IAGE ARRANGER) Pathologist [facility] HLA Typing DR See Scanned Report 04/07/2017 3:22 PM [employer]ER [facility] Blood BLOOD SPECIMEN / Unknown Lab Venipuncture / Unknown 03/29/2017 2:34 PM [employer] 03/29/2017 3:11 PM [employer]ER Biju Walker MD LAB - BLOOD BANK ORD ERABLES Performing Organization Address City/[facility]/ZIP Co de Phone Number [facility] [address] [place] [address] * HLA TYPING A,B,C MULTIPLE ANTIGEN (03/29/2017 2:34 PM [employer] ARRANGER) HLA ABC Typing SSR 04/09/2017 4:47 PM [employer]ER [facility] Blood BLOOD SPECIMEN / Unknown Lab Venipuncture / Unknown 03/29/2017 2:34 PM [employer] AR[employer]ANGER 03/29/2017 3:11 PM [employer]ER Biju Walker MD LAB - BLOOD BANK ORD ERABLES Performing Organization Address [facility] Co de Phone Number [facility] [address] [place] [address] * (ABNORMAL) BILIRUBIN TOTAL+DIRECT BLOOD PANEL (03/22/2017 9:42 AM [employer] ARRANGER) Only the most recent of2 resultswithin the time period is included. Bilirubin Total 5.8(H) 0.3 - 1.2 mg/dL 03/22/2017 10:43 AM [facility] Bilirubin Direct 4.64(H) 0.11 - 0.64 mg/dL 03/22/2017 10:43 AM [facility] Bilirubin Indirect 1.2 mg/dL 03/22/2017 10:43 AM [facility] Blood BLOOD SPECIMEN / Unknown Lab Venipuncture / Unknown 03/22/2017 9:42 AM [employer]ER 03/22/2017 9:46 AM [employer] AR[employer]ER Vicente Owen DO LAB - CHEMISTRY ORDFelton AKINS Performing Organization Address [facility] Co de Phone Number [facility] [address] [place] [phone] * (ABNORMAL) URINALYSIS COMPLETE W MICROSCOPIC (03/21/2017 8:42 PM [employer] ARRANGER) Color UA Newberg(A) Straw, Yellow 03/21/2017 9:10 PM [facility] Clarity UA Turbid(A) Clear 03/21/2017 9:10 PM [facility] Glucose UA Negative Negative 03/21/2017 9:10 PM [facility] Bilirubin UA 2+(A) Negative 03/21/2017 9:10 PM [facility] Ketone UA Trace(A) Negative 03/21/2017 9:10 PM [facility] Specific Morrow UA 1.025 1.005 - 1.030 03/21/2017 9:10 PM [facility] Blood UA Negative Negative 03/21/2017 9:10 PM [facility] pH UA 6.5 5.0 - 8.0 pH 03/21/2017 9:10 PM [facility] Protein UA Trace(A) Negative 03/21/2017 9:10 PM [facility] Urobilinogen UA Negative Negative mg/dL 03/21/2017 9:10 PM [facility] Nitrite UA Negative Negative 03/21/2017 9:10 PM [facility] Leukocyte UA Trace(A) Negative 03/21/2017 9:10 PM [facility] RBC UA 0-5 0-5, None Seen # /hpf 03/21/2017 9:10 PM [facility] WBC UA 21-50(A) 0-5, None Seen # /hpf 03/21/2017 9:10 PM [facility] WBC Clumps UA Many(A) None Seen /HPF 03/21/2017 9:10 PM [facility] Bacteria UA Trace(A) None Seen 03/21/2017 9:10 PM [facility] Squamous Epithelial Cells 6-10(A) None Seen, 0-2, 3-5 /hpf 03/21/2017 9:10 PM [facility] Mucus UA 4+ /LPF 03/21/2017 9:10 PM [facility] Amorphous Crystals Occasional( A) None seen /hpf 03/21/2017 9:10 PM [facility] Calcium Oxalate Crystals Moderate(A) None seen /HPF 03/21/2017 9:10 PM [facility] Urine URINE SPECIMEN OBTAINED BY CLEAN CATCH PROCEDURE / Unknown Collection / Unknown 03/21/2017 8:42 PM [employer]ER 03/21/2017 8:51 PM [employer]IAGE ARRANGER Narrative [facility] - 03/21/2017 9:10 PM [employer]IAGE ARRANGER ictotest positive Monika Barbosa MD LAB - URINAL YSIS ORDERABLES [facility] [address] [place] [phone] * LIPASE BLOOD (03/21/2017 2:41 PM [employer]IAGE ARRANGER) Only the most recent of10 resultswithin the time period is included. Lipase 19 10 - 220 U/L 03/21/2017 3:15 PM [employer]AGE ARRANGER [facility] Blood BLOOD SPECIMEN / Unknown Venipuncture / Unknown 03/21/2017 2:41 PM [employer]AGE ARRANGER 03/21/2017 2:59 PM [employer]AGE ARRANGER Monika Barbosa MD LAB - CHEMIS TRY ORDERABLES Performing Organization Address [facility] Co de Phone Number [facility] [address] [place] [address] * AMMONIA (03/21/2017 2:41 PM ART[employer]IAL [employer]IAGE ARRANGER) Only the most recent of3 resultswithin the time period is included. Ammonia 29 18 - 72 umol/L 03/21/2017 3:03 PM [employer]AGE ARRANGER [facility] Blood BLOOD SPECIMEN / Unknown Venipuncture / Unknown 03/21/2017 2:41 PM [employer]IAGE ARRANGER 03/21/2017 2:56 PM [employer]AGE ARRANGER Monika Barbosa MD LAB - CHEMIS TRY ORDERABLES Performing Organization Address [facility] de Phone Number [facility] [address] [place] [phone] * TACROLIMUS LEVEL GASTROENTEROLOGY (03/19/2017 8:31 AM ART[employer]IAL [employer]IAGE ARRANGER) Tacrolimus 4.8 2.0 - 15.0 ng/mL 03/19/2017 11:04 AM [employer]IAGE ARRANGER [facility] Blood BLOOD SPECIMEN / Unknown Lab Venipuncture / Unknown 03/19/2017 8:31 AM [employer]IAGE ARRANGER 03/19/2017 8:36 AM [employer]AGE AR[employer]ANGER Jose Castillo DO LAB - THERAPEUTIC DR MARTINEZ MONITORING ORDERABLES Performing Organization Address [facility] Co de Phone Number [facility] [address] [place] [address] [id number] * NEEDLE BIOPSY, LIVER (03/16/2017 11:26 AM ARTIFICIAL FOLIAGE ARRANGER) Report Endoscopy POC _ Patient Name: Lili Aguila ? Date of : 2000 ? Admit Type: Inpatient Age: 17 ? Gender: Female Attending MD: Biju Walker MD ?Order #: [id number] _ Procedure: ? Liver biopsy Indications: ? [...] One pass was made with ? the [employer] gun using ultrasound to dionisio the site. Post biopsy ? ultrasound looked okay. Impression: ?- Tissue was submitted to pathology. Recommendation: ?Admit to floor. ? Procedure Code(s): ? --- Professional --- ? 53347, Biopsy of liver, needle; percutaneous ? 83968, Ultrasonic guidance for needle placement (eg, biopsy, aspiration, ? injection, localization device), imaging supervision and interpretation ? --- Technical --- ? 66143, Biopsy of liver, needle; percutaneous ? 14735, Ultrasonic guidance for needle placement (eg, biopsy, aspiration, ? injection, localization device), imaging supervision and interpretation Diagnosis Code(s): ? --- Professional --- ? R74.9, Abnormal serum enzyme level, unspecified ? --- Technical --- ? R74.9, Abnormal serum enzyme level, unspecified CPT copyright 2015 [employer]. All rights reserved. The codes documented in this report are preliminary and upon component inspector review may be revised to meet current compliance requirements. Dr. Biju Walker Biju Walker MD 03/16/2017 12:02:42 PM This report has been signed electronically. Number of Addenda: 0 Note Initiated On: 03/16/2017 11:26 AM Procedure Date: ? 03/16/2017 11:26:11 AM ? This report has been signed electronically. [facility] 03/16/2017 11:2 6 AM ARTIFICIAL FOLIAGE ARRANGER Biju Walker MD GI PROCEDURE ORDERAB LES [facility] [address] [place] [address] * MRI ABDOMEN W MRCP W WO CONT (03/15/2017 4:05 PM ARTIFICIAL FOLIAGE ARRANGER) Anatomical Region Laterality Modality Magnetic Resonan ce 03/16/2017 8:15 AM ARTIFICIAL FOLIAGE ARRANGER Impressions 03/16/2017 12:25 PM ARTIFICIAL FOLIAGE ARRANGER narrowing of the right biliary duct immediately proximal to junction that forms the common bile duct with minimal prominence to the biliary tree proximal to stricture. Splenomegaly I, Kwadwo Zapata, have personally reviewed the images and I agree with this report. Narrative 03/16/2017 12:25 PM ARTIFICIAL FOLIAGE ARRANGER EXAMINATION: MAGNETIC RESONANCE IMAGING OF THE ABDOMEN [...] and I agree with this report. Jose Csatillo DO MR ORDERABLES * CYTOMEGALOVIRUS QUAL PCR (03/08/2017 6:07 PM ARTIFICIAL FOLIAGE ARRANGER) Only the most recent of5 resultswithin the time period is included. [facility] Cytomegalovirus Detection PCR Negative Negative 03/13/2017 11:06 PM ARTIFICIAL FOLIAGE ARRANGER [facility] ([facility]) Comment: No Cytomegalovirus DNA Detected. This test was developed and its performance characteristics determined by [facility]. ??It has not been cleared or approved by the Food and Drug Administration. ??The FDA has determined that such clearance or approval is not necessary. Blood BLOOD SPECIMEN / Unknown Lab Venipuncture / Unknown 03/08/2017 6:07 PM ARTIFICIAL FOLIAGE ARRANGER 03/08/2017 6:11 PM ARTIFICIAL FOLIAGE ARRANGER Narrative [facility] ([facility]) - 03/13/2017 11:06 PM ARTIFICIAL FOLIAGE ARRANGER Performed at: ??01 - [address] ??[id number] Shear Operator Helper: Hair Bryant MD, Phone: ??[phone] Vicente D Law DO LAB - BODY FLUID ORD ERABLES [facility] ([facility]) [address] [place] [address] * MRI BRAIN WITH AND WITHOUT CONTRAST (03/08/2017 5:50 PM ARTIFICIAL FOLIAGE ARRANGER) Only the most recent of2 resultswithin the time period is included. Anatomical Region Laterality Modality Head Magnetic Resonan ce 03/09/2017 6:38 AM ARTIFICIAL FOLIAGE ARRANGER Impressions 03/09/2017 6:52 AM ARTIFICIAL FOLIAGE ARRANGER 1. Normal brain MRI. 2. Normal MRV of the head. Specifically, no evidence of venous sinus thrombosis. Narrative 03/09/2017 6:52 AM ARTIFICIAL FOLIAGE ARRANGER EXAMINATION: 1. Magnetic resonance imaging (MRI) of [...] WITH AND WITHOUT CONTRAST (03/08/2017 5:50 PM ARTIFICIAL FOLIAGE ARRANGER) Anatomical Region Laterality Modality Head Magnetic Resonan ce 03/09/2017 6:38 AM ARTIFICIAL FOLIAGE ARRANGER Impressions 03/09/2017 6:52 AM ARTIFICIAL FOLIAGE ARRANGER 1. Normal brain MRI. 2. Normal MRV of the head. Specifically, no evidence of venous sinus thrombosis. Narrative 03/09/2017 6:52 AM ARTIFICIAL FOLIAGE ARRANGER EXAMINATION: 1. Magnetic resonance imaging (MRI) of [...] (ABNORMAL) BETTINA-MEDRANO VIRUS PANEL (03/08/2017 6:21 AM ARTIFICIAL FOLIAGE ARRANGER) Only the most recent of3 resultswithin the time period is included. Bettina-Medrano Viral Capsid Antigen Antibody IgM <36.0 0.0 - 35.9 U/mL 03/09/2017 2:13 PM ARTIFICIAL FOLIAGE ARRANGER [facility] ([facility]) Comment: ? Negative ?<36.0 ? Equivocal 36.0 - 43.9 ? Positive ?>43.9 Bettina-Medrano Virus Early Antigen Antibody IgG <9.0 0.0 - 8.9 U/mL 03/09/2017 2:13 PM ARTIFICIAL FOLIAGE ARRANGER [facility] ([facility]) Comment: ? Negative ?< 9.0 ? Equivocal ??9.0 - 10.9 ? Positive ?>10.9 Bettina-Medrano Viral Capsid Antigen Antibody IgG 385.0(H) 0.0 - 17.9 U/mL 03/09/2017 2:13 PM ARTIFICIAL FOLIAGE ARRANGER [facility] ([facility]) Comment: ? Negative ?<18.0 ? Equivocal 18.0 - 21.9 ? Positive ?>21.9 Bettian-Medrano Virus Antibody IgG Nuclear Antigen 335.0(H) 0.0 - 17.9 U/mL 03/09/2017 2:13 PM ARTIFICIAL FOLIAGE ARRANGER [facility] ([facility]) Comment: ? Negative ?<18.0 ? Equivocal 18.0 - 21.9 ? Positive ?>21.9 Interpretation Comment 03/09/2017 2:13 PM ARTIFICIAL FOLIAGE ARRANGER [facility] ([facility]) Comment: ? EBV Interpretation Chart [...] Lab Venipuncture / Unknown 03/08/2017 6:21 AM ARTIFICIAL FOLIAGE ARRANGER 03/08/2017 6:26 AM ARTIFICIAL FOLIAGE ARRANGER Narrative [facility] ([facility]) - 03/09/2017 2:13 PM ARTIFICIAL FOLIAGE ARRANGER Performed at: ??01 - [facility] [place] [address] [place], [place] ??[id number] Shear Operator Helper: Hang Zurita PhD, Phone: ??[phone] Mariama Noble DO LAB - CHEMISTRY ORD ERABLES Performing Organization Address City/State/[facility] Co de Phone Number [facility] ([facility]) [address] [place] [address] * IRON + TRANSFERRIN + TIBC PANEL (06/26/2016 8:01 AM ARTIFICIAL FOLIAGE ARRANGER) Only the most recent of2 resultswithin the time period is included. Iron 118 25 - 156 ug/dL 06/26/2016 9:55 AM [facility] Transferrin 270 180 - 382 mg/dL 06/26/2016 9:55 AM [facility] TIBC Calculated 338 250 - 400 mg/dL 06/26/2016 9:55 AM [facility] Iron Saturation % 35 20 - 50 % 06/26/2016 9:55 AM [facility] Blood BLOOD SPECIMEN / Unknown Lab Venipuncture / Unknown 06/26/2016 8:01 AM ARTIFICIAL FOLIAGE ARRANGER 06/26/2016 8:41 AM ARTIFICIAL FOLIAGE ARRANGER Biju Walker MD LAB - CHEMISTRY STEPHON AKINS [facility] [place] [address] * XR FOOT 3+ VW LEFT (07/21/2015 [...] BETTINA-MEDRANO VIRUS PCR QUALITATIVE (06/14/2015 7:16 AM ARTIFICIAL FOLIAGE ARRANGER) Bettina-Medrano Virus Real Time Negative Negative 06/20/2015 12:15 PM ARTIFICIAL FOLIAGE ARRANGER [facility] ([facility]) Comment: This test was developed and its performance characteristics determined by [facility]. It has not been cleared or approved by the U.S. Food and Drug Administration. The FDA has determined that such clearance or approval is not necessary. This test is used for clinical purposes. It should not be regarded as investigational or research. Blood specimen (specimen) BLOOD SPECIMEN / Unknown Lab Venipuncture / Unknown 06/14/2015 7:16 AM ARTIFICIAL FOLIAGE ARRANGER 06/14/2015 7:36 AM ARTIFICIAL FOLIAGE ARRANGER Narrative [facility] ([facility]) - 06/20/2015 12:15 PM ARTIFICIAL FOLIAGE ARRANGER Performed at: ??01 - [address] ??[id number] Shear Operator Helper: Hair Bryant MD, Phone: ??[phone] Biju Walker MD LAB - [facility]BIOLOGY [facility] * PEDIATRIC DIAGNOSTIC POLYSOMNOGRAM (05/25/2015) Linked Results See Linked Results [facility] 05/25/2015 Kelly Sotomayor APRN-AUTOMOTIVE HARDWARE ENGINEER [facility] O RDERABLES [facility] * GLUCOSE (11/23/2014 8:45 AM CDT) Only the most recent of44 resultswithin the time period is included. Glucose 93 70 - 105 mg/dL 11/23/2014 9:32 AM CDT [facility] Blood BLOOD SPECIMEN / Unknown Lab Venipuncture / Unknown 11/23/2014 8:45 AM CDT 11/23/2014 9:00 AM CDT Beth Garcia MD LAB - CHEMISTRY STEPHON AKINS Performing Organization Address [facility] Co de Phone Number [facility] [address] [place] [address] * (ABNORMAL) LYTES (NA K CL CO2) BLOOD (11/23/2014 8:45 AM CDT) Only the most recent of46 resultswithin the time period is included. Sodium 139 136 - 145 mmol/L 11/23/2014 9:32 AM CDT [facility] Potassium 4.3 3.5 - 5.1 mmol/L 11/23/2014 9:32 AM CDT [facility] Chloride 109(H) 98 - 107 mmol/L 11/23/2014 9:32 AM CDT [facility] CO2 22 20 - 28 mmol/L 11/23/2014 9:32 AM T [facility] Anion Gap 8 5 - 20 mmol/L 11/23/2014 9:32 AM CDT [facility] Blood BLOOD SPECIMEN / Unknown Lab Venipuncture / Unknown 11/23/2014 8:45 AM CDT 11/23/2014 9:00 AM CDT Beth Garcia MD LAB - CHEMISTRY STEPHON AKINS Performing Organization Address City/[facility]/ZIP Co de Phone Number [facility] [address] [place] [address] * (ABNORMAL) CREATININE BLOOD (11/23/2014 8:45 AM CDT) Only the most recent of46 resultswithin the time period is included. Creatinine 0.53(L) 0.61 - 1.07 mg/dL 11/23/2014 9:32 AM CDT [facility] eGFR by MDRD mL/min/1. 73m2 11/23/2014 9:32 AM T [facility] Comment: eGFR calculations are not performed for children under 18 years old. eGFR by MDRD mL/min/1. 73m2 11/23/2014 9:32 AM T [facility] Comment: eGFR calculations are not performed for children under 18 years old. Blood BLOOD SPECIMEN / Unknown Lab Venipuncture / Unknown 11/23/2014 8:45 AM CDT 11/23/2014 9:00 AM CDT Beth Garcia MD LAB - CHEMISTRY STEPHON AKINS Performing Organization Address City/[facility]/ZIP Co de Phone Number [facility] [address] [place] [address] * BUN (11/23/2014 8:45 AM CDT) Only the most recent of44 resultswithin the time period is included. BUN 10.3 5.3 - 18.7 mg/dL 11/23/2014 9:32 AM CDT [facility] Blood BLOOD SPECIMEN / Unknown Lab Venipuncture / Unknown 11/23/2014 8:45 AM CDT 11/23/2014 9:00 AM CDT Beth Garcia MD LAB - CHEMISTRY ORDFelton AKINS Performing Organization Address [facility]/ZIP Co de Phone Number [facility] [address] [place] [address] * US ABD COM W/DUP PORT VEIN LIVER (05/04/2014 1:42 PM ARTIFICIAL FOLIAGE ARRANGER) Anatomical Region Laterality Modality Ultrasound 05/04/2014 1:55 PM ARTIFICIAL FOLIAGE ARRANGER Impressions 05/04/2014 2:11 PM ARTIFICIAL FOLIAGE ARRANGER 1. Postoperative changes of liver transplantation with embolization coil within the right hepatic lobe. 2. Splenomegaly with spleen measuring 15.0 cm in length, previously 14.6 cm. 3. Patent transplant liver vasculature. Narrative 05/04/2014 2:11 PM ARTIFICIAL FOLIAGE ARRANGER EXAMINATION: ??ABDOMINAL ULTRASOUND WITH LIVER DOPPLER HISTORY: [...] HELICOBACTER PYLORI UREASE (STL) (03/07/2014 12:48 PM ARTIFICIAL FOLIAGE ARRANGER) Helicobacter pylori Urease Initial Negative Negative 03/08/2014 3:35 PM ARTIFICIAL FOLIAGE ARRANGER [facility] Helicobacter pylori Urease Final Negative Negative 03/08/2014 3:35 PM ARTIFICIAL FOLIAGE ARRANGER [facility] Microbiology GASTRIC BIOPSY SPECIMEN / Unknown 03/07/2014 12:48 PM ARTIFICIAL FOLIAGE ARRANGER 03/07/2014 1:01 PM ARTIFICIAL FOLIAGE ARRANGER Biju Walker MD LAB - MICROBIOLOGY O RDERABLES [facility] [address] [place] [address] * EGD (03/07/2014 11:25 AM ARTIFICIAL FOLIAGE ARRANGER) Report Endoscopy POC _ Patient Name: Lili Aguila ?Gender: Female ?Date of : 2000 Age: 13 ? Admit Type: Outpatient Attending MD: Biju Walker MD ? Order #: [id number] _ Procedure: ? Upper GI endoscopy Indications: [...] Procedure Code(s): ? --- Professional --- ? 21719, Esophagogastrodu odenoscopy, flexible, transoral; with biopsy, ? single or multiple ? --- Technical --- ? 63458, Esophagogastrodu odenoscopy, flexible, transoral; with biopsy, ? single or multiple Diagnosis Code(s): ? --- Professional --- ? 530.9, Unspecified disorder of esophagus ? 537.9, Unspecified disorder of stomach and duodenum ? 789.00, Abdominal pain, unspecified site ? --- Technical --- ? 530.9, Unspecified disorder of esophagus ? 537.9, Unspecified disorder of stomach and duodenum ? 789.00, Abdominal pain, unspecified site CPT copyright 2013 [employer]. All rights reserved. The codes documented in this report are preliminary and upon component inspector review may be revised to meet current compliance requirements. Dr. Biju Walker Biju Walker MD 03/07/2014 12:50 PM This report has been signed electronically. Number of Addenda: 0 Note Initiated On: 03/05/2014 11:25 AM Procedure Date: ? 03/07/2014 11:25:00 AM ? This report has been signed electronically. [facility] 03/07/2014 11:2 5 AM ARTIFICIAL FOLIAGE ARRANGER Biju Walker MD GI PROCEDURE ORDERAB LES [facility] [address] [facility] [place] [address] * XR ABD OBSTR SERIES (11/07/2013 11:12 [...] Yellow, Dark Yellow 11/07/2013 10:43 AM CDT [facility] Clarity UA Slt Cloudy 11/07/2013 10:43 AM CDT [facility] Specific Morrow UA >=1.030 1.005 - 1.030 11/07/2013 10:43 AM [facility] pH UA 6.0 5.0 - 8.0 pH 11/07/2013 10:43 AM T [facility] Protein UA Negative Negative 11/07/2013 10:43 AM T [facility] Blood UA 2+(A) Negative 11/07/2013 10:43 AM T [facility] Leukocyte UA Negative Negative 11/07/2013 10:43 AM T [facility] Nitrite UA Negative Negative 11/07/2013 10:43 AM T [facility] Glucose UA Negative Negative 11/07/2013 10:43 AM T [facility] Ketone UA Negative Negative 11/07/2013 10:43 AM [facility] Bilirubin UA Negative Negative 11/07/2013 10:43 AM [facility] Urobilinogen UA 0.2 0.1 - 1.0 EU/dL 11/07/2013 10:43 AM [facility] Urine URINE SPECIMEN OBTAINED BY CLEAN CATCH PROCEDURE / Unknown 11/07/2013 10:28 AM T 11/07/2013 10:34 AM T Suzan Camejo DO LAB - URINALYSIS O RDERABLES Performing Organization Address City/State/[facility] Co de Phone Number [facility] [place] [address] * (ABNORMAL) URINALYSIS MICROSCOPIC ONLY (11/07/2013 10:28 AM CDT) Only the most recent of4 resultswithin the time period is included. RBC UA 0-2, 2-5 # /hpf 11/07/2013 10:57 AM [facility] WBC UA 0-2 0-2, 2-5 # /hpf 11/07/2013 10:57 AM [facility] Bacteria UA 2+(A) None Seen, Trace 11/07/2013 10:57 AM [facility] Epithelial Cell UA 2-5 0-2, 2-5 11/07/2013 10:57 AM [facility] Mucus UA 2+ 11/07/2013 10:57 AM [facility] Urine URINE SPECIMEN OBTAINED BY CLEAN CATCH PROCEDURE / Unknown 11/07/2013 10:28 AM CDT 11/07/2013 10:34 AM CDT Suzan Rhina Camejo DO LAB - URINALYSIS O RDERABLES [facility] [place] [address] * CHLAMYDIA + GC AMPLIFIED PROBE (11/07/2013 10:28 AM CDT) Chlamydia Amplified Probe Negative Negative 11/08/2013 12:49 PM CDT [facility] GC Amplified Probe Negative Negative 11/08/2013 12:49 PM CDT [facility] Urine URINE / Unknown 11/07/2013 1 0:28 AM CDT 11/07/2013 10:36 AM CDT Narrative [facility] - 11/08/2013 12:49 PM CDT This test was developed and its performance characteristics determined by the [facility], [facility]. Female urine specimens tested by the [facility] have not been cleared or approved by the FDA. The laboratory is regulated under CLIA as qualified to perform high-complexity testing. This test is used for clinical purposes. It should not be regarded as investigational or for research. Results based on detection/no detection of ribosomal RNA by amplified method. Suzan Camejo DO LAB - MICROBIOLOGY ORDERABLES Performing Organization Address [facility] Co de Phone Number [facility] [address] [place] [address], [facility] * IR ANGIO VISCERAL SELECTIVE (10/31/2013 1:37 [...] draped in the usual sterile fashion. A crusher tender film of abdomen was obtained, which was unremarkable. The right common femoral artery was accessed using a micro-puncture needle. Following a series of exchanges, a 5 vascular sheath was placed. Using a 4 Burkinan VCF catheter, an abdominal aortogram was obtained. The aortogram demonstrated normal contour of far abdominal aorta with the normal appearing celiac, spleen mesenteric as well as both renal arteries. An early opacification of portal vein was noted with obvious arterio-portal shunt through an AV fistula in the right lobe of liver. The celiac artery was then catheterized with 4 Burkinan Cobra catheter and angiogram was obtained. The [...] draped in the usual sterile fashion. A crusher tender film of abdomen was obtained, which was unremarkable. The right common femoral artery was accessed using a micro-puncture needle. Following a series of exchanges, a 5 vascular sheath was placed. Using a 4 Burkinan VCF catheter, an abdominal aortogram was obtained. The aortogram demonstrated normal contour of far abdominal aorta with the normal appearing celiac, spleen mesenteric as well as both renal arteries. An early opacification of portal vein was noted with obvious arterio-portal shunt through an AV fistula in the right lobe of liver. The celiac artery was then catheterized with 4 Burkinan Cobra catheter and angiogram was obtained. The [...] from the Results section by S Interface [[id number]] on 08/09/2013 at ??1:18 PM (File: [id number]) A scan was deleted from the Results section by [facility] Interface [[id number]] on 08/09/2013 at ??1:18 PM (File: [id number]) Transcriptions Document, Scanned - 08/09/2013 1:18 PM CDT Scanned Document LAB - PATHOLOGY/CYTO LOGY ORDERABLES * US DOPPLER PORTAL VEIN LIVER (04/05/2013 2:34 PM ARTIFICIAL FOLIAGE ARRANGER) Only the most recent of2 resultswithin the time period is included. Anatomical Region Laterality Modality Abdomen Ultrasound 04/05/2013 2:40 PM ARTIFICIAL FOLIAGE ARRANGER Impressions 04/05/2013 3:04 PM ARTIFICIAL FOLIAGE ARRANGER Arterialization of the right portal vein waveform. This is suggestive of arterial portal fistula. Dictated by Marcel Capps on 04/05/2013 2:59 PM I, Alexandrea Yuen, have personally reviewed the images and I agree with this report. Narrative 04/05/2013 3:04 PM ARTIFICIAL FOLIAGE ARRANGER Exam: Limited Doppler ultrasound of the right [...] ABDOMEN WITH IV CONTRAST (04/05/2013 11:22 AM ARTIFICIAL FOLIAGE ARRANGER) Anatomical Region Laterality Modality Abdomen Computed Tomogra phy 04/05/2013 12:3 8 PM ARTIFICIAL FOLIAGE ARRANGER Addenda This result is currently undergoing an addendum. Addendum by Kwadwo Zapata MD on 04/06/2013 1:53 PM ARTIFICIAL FOLIAGE ARRANGER Addendum to CT abdomen with contrast dictation [...] portal vein fistula. Impressions 04/05/2013 2:07 PM ARTIFICIAL FOLIAGE ARRANGER 1.new findings involving the right hepatic artery [...] patent portal vein. Narrative 04/05/2013 2:[address]OLIAGE ARRANGER CT abdomen with IV contrast April 05, [...] ORDERABLES * AMYLASE BLOOD (04/04/2013 3:42 AM ARTIFICIAL FOLIAGE ARRANGER) Only the most recent of6 resultswithin the time period is included. Amylase 32 5 - 65 U/L 04/04/2013 4:24 AM ARTIFICIAL FOLIAGE ARRANGER [facility] Blood BLOOD SPECIMEN / Unknown 04/04/2013 3:42 AM ARTIFICIAL FOLIAGE ARRANGER 04/04/2013 3:56 AM ARTIFICIAL FOLIAGE ARRANGER Kymberly Bateman DO LAB - CHEMISTRY STEPHON AKINS [facility] [address] [place] [address] * (ABNORMAL) CERULOPLASMIN (04/03/2013 1:32 PM ARTIFICIAL FOLIAGE ARRANGER) Only the most recent of2 resultswithin the time period is included. Pathologist [facility] Ceruloplasmin 17(L) 20 - 43 mg/dL 04/04/2013 11:58 AM ARTIFICIAL FOLIAGE ARRANGER [facility] Comment: REFERENCE INTERVAL: Ceruloplasmin Access complete set of age- and/or gender-specific reference intervals for this test in the [facility] Test Directory ([facility]). Blood specimen (specimen) BLOOD SPECIMEN / Unknown 04/03/2013 1:32 PM ARTIFICIAL FOLIAGE ARRANGER 04/03/2013 1:50 PM ARTIFICIAL FOLIAGE ARRANGER Griselda Rainey MD LAB - CHEMISTRY STEPHON AKINS [facility] [address] [place] [address] * ANTI - SMOOTH MUSCLE ANTIBODY W REFLEX TITER (04/03/2013 8:05 AM ARTIFICIAL FOLIAGE ARRANGER) Pathologist [facility] F-Actin Antibody IgG 18 0 - 19 Units 04/04/2013 1:15 PM ARTIFICIAL FOLIAGE ARRANGER [facility] Comment: If F-Actin (Smooth Muscle) Antibody, IgG [...] Lab Venipuncture / Unknown 04/03/2013 8:05 AM ARTIFICIAL FOLIAGE ARRANGER 04/03/2013 8:19 AM ARTIFICIAL FOLIAGE ARRANGER Biju Walker MD LAB - SEROLOGY ORDER [facility] [place] [address] * ANTI LIVER/KIDNEY MICROSOMAL ANTIBODY (04/03/2013 8:05 AM ARTIFICIAL FOLIAGE ARRANGER) Liver/Kidney Microsomal Antibody IgG <1:20 <1:20 04/05/2013 3:32 PM ARTIFICIAL FOLIAGE ARRANGER [facility] Comment: INTERPRETIVE INFORMATION: ??Tozgo-Sfrhql-Bviqakyay Abs, IgG Liver-Kidney Microsome IgG antibody (anti-LKM), as detected by indirect immunofluorescent antibody (IFA) techniques, may be observed in patients with autoimmune hepatitis type 2 (AIH-2), AIH-2 associated with autoimmune ttvrtemxkvqvossthu-pdwewiobvvp-jivsvlfvhp dystrophy (APECED), viral hepatitis C or D, and some forms of drug-induced hepatitis. This IFA does not differentiate among the four types of LKM antibodies (LKM-1, LKM-2, LKM-3, and a fourth type that recognizes CY and CY antigens). Of these, anti-LKM-1 (cytochrome [id number]) IgG antibodies are considered specific for AIH-2. Test developed and characteristics determined by [facility]. See Compliance Statement D: [email or web address] Blood specimen (specimen) BLOOD SPECIMEN / Unknown Lab Venipuncture / Unknown 04/03/2013 8:05 AM ARTIFICIAL FOLIAGE ARRANGER 04/03/2013 8:19 AM ARTIFICIAL FOLIAGE ARRANGER Biju Walker MD LAB - CHEMISTRY STEPHON AKINS Performing Organization Address [facility] de Phone Number [facility] [address] [place] [address] * [id number] BLOOD (04/03/2013 8:05 AM ARTIFICIAL FOLIAGE ARRANGER) [facility] Sjtfr-5-Nguycd ypsin 166 100 - 200 mg/dL 04/04/2013 2:29 PM ARTIFICIAL FOLIAGE ARRANGER [facility] Comment:To convert to umol/L , multiply mg/dL by 0.185 Blood specimen (specimen) BLOOD SPECIMEN / Unknown Lab Venipuncture / Unknown 04/03/2013 8:05 AM ARTIFICIAL FOLIAGE ARRANGER 04/03/2013 8:19 AM ARTIFICIAL FOLIAGE ARRANGER Biju Walker MD LAB - CHEMISTRY STEPHON AKINS Performing Organization Address [facility] de Phone Number [facility] [address] [place] [address] * THIOPURINE METH TRANSFERASE (03/31/2013 8:17 AM ARTIFICIAL FOLIAGE ARRANGER) [facility] Thiopurine Methyltransferase 32.5 U/mL 04/04/2013 7:06 AM ARTIFICIAL FOLIAGE ARRANGER [facility] Comment: INTERPRETIVE INFORMATION: Thiopurine Methyltransferase, RBC Normal [...] handling. Test developed and characteristics determined by [facility]. See Compliance Statement B: [email or web address] Blood specimen (specimen) BLOOD SPECIMEN / Unknown Lab Venipuncture / Unknown 03/31/2013 8:17 AM ARTIFICIAL FOLIAGE ARRANGER 03/31/2013 8:23 AM ARTIFICIAL FOLIAGE ARRANGER Biju Walker MD LAB - CHEMISTRY STEPHON AKINS [facility] [address] [place] [address] * (ABNORMAL) BASIC METABOLIC PANEL (CALCIUM IONIZED) (03/18/2013 8:30 AM ARTIFICIAL FOLIAGE ARRANGER) [facility] Glucose 134(H) 70 - 105 mg/dL 03/18/2013 9:01 AM ARTIFICIAL FOLIAGE ARRANGER [facility] Sodium 139 136 - 145 mmol/L 03/18/2013 9:01 AM [facility] Potassium 4.7 3.5 - 5.1 mmol/L 03/18/2013 9:01 AM [facility] Chloride 112(H) 98 - 107 mmol/L 03/18/2013 9:01 AM [facility] CO2 18(L) 20 - 28 mmol/L 03/18/2013 9:01 AM [facility] Calcium Ionized 1.23 mmol/L 3 9:01 AM [facility] Anion Gap 9 5 - 20 mmol/L 03/18/2013 9:01 AM [facility] BUN 15.2 6.1 - 21.0 mg/dL 03/18/2013 9:01 AM [facility] Creatinine 0.49(L) 0.62 - 1.00 mg/dL 03/18/2013 9:01 AM [facility] eGFR by MDRD mL/min/1. 73m2 03/18/2013 9:01 AM [facility] Comment:eGFR calculations ar e not performed for children under 18 years old. eGFR by MDRD mL/min/1. 73m2 03/18/2013 9:01 AM [facility] Comment:eGFR calculations ar e not performed for children under 18 years old. Calcium Ionized Adjusted 1.26 1.15 - 1.29 mmol/L 03/18/2013 9:01 AM [facility] pH 7.44 7.35 - 7.45 pH 03/18/2013 9:01 AM [facility] Temp 37.0 C 03/18/2013 9:01 AM [facility] Blood BLOOD SPECIMEN SUBMITTED IN HEPARINIZED COLLECTION TUBE / Unknown Lab Venipuncture / Unknown 03/18/2013 8:30 AM ARTIFICIAL FOLIAGE ARRANGER 03/18/2013 8:35 AM [facility] Anthony Vargas DO LAB - CHEMISTRY STEPHON AKINS [facility] [address] [place] [address] * NEEDLE BIOPSY, LIVER (03/15/2013 7:13 AM ARTIFICIAL FOLIAGE ARRANGER) Report Endoscopy POC _ Patient Name: Lili Aguila ?Gender: Female ?Date of : 2000 Age: 13 ? Admit Type: Outpatient Attending MD: Biju Walker MD ? Order #: [id number] _ Procedure: ? Liver biopsy Indications: ? Abnormal Liver enzymes (no detail) Providers: ? Biju Walker MD Referring MD: ?Josiah Palaciso MD Medicines: ? General anesthesia Complications: ? [...] histology, ? culture and electron microscopy. The [employer] gun was used with ? ultrasound to dionisio the site. Recommendation: ?- Please call GI office in 2 weeks for the results. ? Keep scheduled appointments. Please keep us informed of ? patient progress. ? Do not hesitate to call GI for any questions / concerns. ? Procedure Code(s): ? --- Professional --- ? 60015, Ultrasonic guidance for needle placement (eg, biopsy, aspiration, ? injection, localization device), imaging supervision and interpretation ? 20222, Biopsy of liver, needle; percutaneous ? --- Technical --- ? 85093, Ultrasonic guidance for needle placement (eg, biopsy, aspiration, ? injection, localization device), imaging supervision and interpretation ? 21760, Biopsy of liver, needle; percutaneous Diagnosis Code(s): ? --- Professional --- ? 790.5, Other nonspecific abnormal serum enzyme levels ? --- Technical --- ? 790.5, Other nonspecific abnormal serum enzyme levels CPT (R) 2012 [employer]. All Rights Reserved. The codes documented in this report are preliminary and upon component inspector review may be revised to meet current compliance requirements. Dr. Biju Walker Biju Walker MD 03/15/2013 11:40 AM This report has been signed electronically. Number of Addenda: 0 Note Initiated On: 03/15/2013 7:13 AM Procedure Date: ? 03/15/2013 7:13:39 AM ? This report has been signed electronically. [facility] 03/15/2013 7:13 AM ARTIFICIAL FOLIAGE ARRANGER Narrative [facility] - 03/15/2013 11:41 AM ARTIFICIAL FOLIAGE ARRANGER Procedure Note Biju Walker MD - 03/15/2013 11:41 AM CST Biju Walker MD GI PROCEDURE ORDERAB LES Performing Organization Address City/[facility] Co de Phone Number [facility] [address] [place] [address] * VITAMIN A (11/30/2012 8:57 AM CDT) Vitamin A 0.40 0.26 - 0.70 mg/L 12/02/2012 10:59 PM CDT [facility] Retinyl Palmitate 0.02 0.00 - 0.10 mg/L 12/02/2012 10:59 PM CDT [facility] Interpretation Vitamin A Normal 12/02/2012 10:59 PM CDT [facility] Comment: Test developed and characteristics determined by [employer]. See Compliance Statement B: [email or web address] Blood specimen (specimen) BLOOD SPECIMEN / Unknown Venipuncture / Unknown 11/30/2012 8:57 AM CDT 11/30/2012 9:15 AM CDT Biju Walker MD LAB - CHEMISTRY ORDFelton AKINS Performing Organization Address City/State/[facility] de Phone Number [facility] [address] [place] [address] * VITAMIN E (11/30/2012 8:57 AM CDT) [facility] Vitamin E Alpha Tocopherol 7.8 5.5 - 18.0 mg/L 12/02/2012 10:59 PM CDT [facility] Comment: Test developed and characteristics determined by [employer]. See Compliance Statement B: [employer] Vitamin E Gamma Tocopherol 0.8 0.0 - 6.0 mg/L 12/02/2012 10:59 PM CDT [facility] [employer] Blood specimen (specimen) BLOOD SPECIMEN / Unknown Venipuncture / Unknown 11/30/2012 8:57 AM CDT 11/30/2012 9:15 AM CDT Biju Walker MD LAB - CHEMISTRY STEPHON AKINS Performing Organization Address [facility] de Phone Number [facility] [address] [place] [address] * BETTINA-BAR VIRUS PCR QUANTITATIVE BLOOD (11/30/2012 8:57 AM CDT) Only the most recent of3 resultswithin the time period is included. [facility] Bettina-Medrano Virus DNA PCR Quantitative No EBV DNA detected No EBV DNA detected 11/30/2012 1:16 PM CDT [facility] Blood BLOOD SPECIMEN / Unknown Venipuncture / Unknown 11/30/2012 8:57 AM CDT 11/30/2012 9:15 AM CDT Narrative [facility] - 11/30/2012 1:16 PM CDT This [...] ??EBV levels can vary by ??specimen type: [facility] uses whole blood which is more sensitive [...] - MICROBIOLOGY O RDERABLES Performing Organization Address City/State/[facility] Co de Phone Number [facility] [address] [phone] * APHERESIS/TRANSFUSION ORDER (09/07/2012 2:01 PM CDT) [...] time period is included. Unit Donor # [id number] 08/29/2012 1:08 AM CDT [facility] Product Code E2701 08/29/2012 1:08 AM T [facility] ABO Donor Type AB 08/29/2012 1:08 AM T [facility] Rh Type Unit POS 08/29/2012 1:08 AM [facility] Unit Status Returned 08/29/2012 1:08 AM T [facility] Unit Description E2701 Plasma,CPD, Thawed 08/29/2012 1:08 AM T [facility] Miscellaneous samples (specimen) BLOOD SPECIMEN / Unknown 08/26/2012 6:40 AM CDT Aliya Garcia MD LAB - BLOOD BANK ORD ERABLES [facility] * (ABNORMAL) BLOOD GASES ART + LYTES GLUC CA+ PANEL (08/28/2012 12:48 AM CDT) Only the most recent of8 resultswithin the time period is included. pH Arterial 7.40 7.35 - 7.45 pH 08/28/2012 1:02 AM [facility] pCO2 Arterial 43 32 - 45 mm hg 08/28/2012 1:02 AM [facility] pO2 Arterial 104 83 - 108 mm hg 08/28/2012 1:02 AM [facility] BE Arterial 2.0 -2.0 - 2.0 mmol/L 08/28/2012 1:02 AM [facility] O2 Saturation Arterial 98 95 - 99 % 08/28/2012 1:02 AM [facility] Chloride WB 107(H) 98 - 106 mmol/L 08/28/2012 1:02 AM [facility] Glucose WB 143(H) 70 - 106 mg/dL 08/28/2012 1:02 AM [facility] Calcium Ionized 1.17 mmol/L 3 1:02 AM [facility] Calcium Ionized Adjusted 1.17 1.15 - 1.29 mmol/L 08/28/2012 1:02 AM [facility] Potassium Whole Blood 4.1 3.4 - 4.5 mmol/L 08/28/2012 1:02 AM [facility] Sodium Whole Blood 138 136 - 146 mmol/L 08/28/2012 1:02 AM T [facility] Temp 37.0 C 08/28/2012 1:02 AM [facility] Hemoglobin Arterial 9.4(L) 12.0 - 16.0 gm/dL 08/28/2012 1:02 AM [facility] Oxyhemoglobin Arterial 96 94 - 98 % 08/28/2012 1:02 AM [facility] Carboxyhemoglobin Arterial 0.8 0.0 - 0.8 % 08/28/2012 1:02 AM [facility] Methemoglobin Arterial 1.1(H) 0.2 - 0.6 % 08/28/2012 1:02 AM [facility] O2 Content Arterial 12.9(L) 15.0 - 23.0 mg/dL 08/28/2012 1:02 AM [facility] P50 Arterial 26.29 25.3 - 26.8 mm hg 08/28/2012 1:02 AM [facility] TCO2 Arterial 27.6(H) 18 - 27 mmol/L 08/28/2012 1:02 AM [facility] Blood specimen (specimen) ARTERIAL BLOOD SPECIMEN / Unknown 08/28/2012 12:48 AM CDT 08/28/2012 12:56 AM T Waleska Hester MD LAB - BLOOD GASES OR DERABLES Performing Organization Address City/State/[facility] de Phone Number [facility] [address] [place] [address] * (ABNORMAL) BLOOD GASES ART + LYTES PANEL (08/26/2012 6:22 PM CDT) pH Arterial 7.35 7.35 - 7.45 pH 08/26/2012 6:29 PM T [facility] pCO2 Arterial 38 32 - 45 mm hg 08/26/2012 6:29 PM [facility] pO2 Arterial 142(H) 83 - 108 mm hg 08/26/2012 6:29 PM [facility] BE Arterial -4.2(L) -2.0 - 2.0 mmol/L 08/26/2012 6:29 PM [facility] O2 Saturation Arterial 99 95 - 99 % 08/26/2012 6:29 PM T [facility] Chloride WB 109(H) 98 - 106 mmol/L 08/26/2012 6:29 PM [facility] Potassium Whole Blood 4.2 3.4 - 4.5 mmol/L 08/26/2012 6:29 PM [facility] Sodium Whole Blood 140 136 - 146 mmol/L 08/26/2012 6:29 PM T [facility] Temp 37.0 C 08/26/2012 6:29 PM T [facility] Hemoglobin Arterial 11.9(L) 12.0 - 16.0 gm/dL 08/26/2012 6:29 PM [facility] Methemoglobin Arterial 1.1(H) 0.2 - 0.6 % 08/26/2012 6:29 PM [facility] O2 Content Arterial 16.4 15.0 - 23.0 mg/dL 08/26/2012 6:29 PM [facility] P50 Arterial 27.77(H) 25.3 - 26.8 mm hg 08/26/2012 6:29 PM [facility] Carboxyhemoglobin Arterial 0.4 0.0 - 0.8 % 08/26/2012 6:29 PM [facility] Oxyhemoglobin Arterial 97 94 - 98 % 08/26/2012 6:29 PM [facility] TCO2 Arterial 21.6 18 - 27 mmol/L 08/26/2012 6:29 PM [facility] Blood specimen (specimen) ARTERIAL BLOOD SPECIMEN / Unknown 08/26/2012 6:22 PM CDT 08/26/2012 6:[address] Pat[address] MD LAB - BLOOD GASES OR DERABLES Performing Organization Address City/State/[facility] Co de Phone Number [facility] [address] [place] [address] * (ABNORMAL) BLOOD GASES ART + GLUC K CA+ PANEL (08/26/2012 1:46 PM CDT) Only the most recent of2 resultswithin the time period is included. pH Arterial 7.34(L) 7.35 - 7.45 pH 08/26/2012 1:53 PM [facility] pCO2 Arterial 37 32 - 45 mm hg 08/26/2012 1:53 PM [facility] pO2 Arterial 213(H) 83 - 108 mm hg 08/26/2012 1:53 PM [facility] BE Arterial -5.6(L) -2.0 - 2.0 mmol/L 08/26/2012 1:53 PM [facility] O2 Saturation Arterial 99 95 - 99 % 08/26/2012 1:53 PM [facility] Glucose WB 181(H) 70 - 106 mg/dL 08/26/2012 1:53 PM [facility] Calcium Ionized 1.10 mmol/L 3 1:53 PM [facility] Calcium Ionized Adjusted 1.07(L) 1.15 - 1.29 mmol/L 08/26/2012 1:53 PM [facility] Potassium Whole Blood 3.8 3.4 - 4.5 mmol/L 08/26/2012 1:53 PM [facility] Temp 37.0 C 08/26/2012 1:53 PM [facility] Hemoglobin Arterial 10.3(L) 12.0 - 16.0 gm/dL 08/26/2012 1:53 PM [facility] Oxyhemoglobin Arterial 98 94 - 98 % 08/26/2012 1:53 PM [facility] Methemoglobin Arterial 0.8(H) 0.2 - 0.6 % 08/26/2012 1:53 PM [facility] O2 Content Arterial 14.7(L) 15.0 - 23.0 mg/dL 08/26/2012 1:53 PM [facility] P50 Arterial 28.08(H) 25.3 - 26.8 mm hg 08/26/2012 1:53 PM [facility] Carboxyhemoglobin Arterial 0.5 0.0 - 0.8 % 08/26/2012 1:53 PM [facility] Blood specimen (specimen) ARTERIAL BLOOD SPECIMEN / Unknown 08/26/2012 1:46 PM T 08/26/2012 1:50 PM [facility] Megan Kline MD LAB - BLOOD GA SES ORDERABLES [facility] [address] [place] [address] * BLOOD TYPE ORGAN DONOR TRANSPLANT (08/26/2012 10:01 AM CDT) ABO Transplant Donor Type O 08/26/2012 10:42 AM CDT [facility] Rh Tranplant Donor Type POSITIVE 08/26/2012 10:42 AM CDT [facility] Blood Bank ID # UNOS# [id number] 08/26/2012 10:42 AM CDT [facility] Miscellaneous samples (specimen) BLOOD SPECIMEN / Unknown 08/26/2012 10:01 AM CDT 08/26/2012 10:09 AM CDT Biju Walker MD LAB - BLOOD BANK ORD ERABLES [facility] * HOLD SPECIMEN BLOOD (08/25/2012 10:20 PM CDT) Specimen Hold Specimen hold completed. 09/02/2012 12:01 AM CDT [facility] Blood specimen (specimen) BLOOD SPECIMEN / Unknown 08/25/2012 10:20 PM CDT 08/25/2012 10:32 PM CDT You Strickland MD LAB - CHEMISTRY STEPHON AKINS [facility] [address] [place] [address] * CROSSMATCH RBC (08/25/2012 9:56 PM CDT) Only the most recent of8 resultswithin the time period is included. Unit Donor # [id number] -C 08/29/2012 1:03 AM CDT [facility] Product Code E0420 08/29/2012 1:03 AM CDT [facility] Unit Description E0420 RBC, IRR, LR, -5 08/29/2012 1:03 AM CDT [facility] ABO Donor Type O 08/29/2012 1:03 AM CDT [facility] Rh Type Unit NEG 08/29/2012 1:03 AM CDT [facility] Crossmatch Interpretation Compatible 08/29/2012 1:03 AM CDT [facility] Unit Status Returned 08/29/2012 1:03 AM CDT [facility] Miscellaneous samples (specimen) BLOOD SPECIMEN / Unknown 08/25/2012 9:56 PM CDT 08/25/2012 10:10 PM CDT Aliya Garcia MD LAB - BLOOD BANK ORD ERABLES [facility] * CMV ANTIBODY IGM BLOOD (08/25/2012 9:55 PM CDT) Cytomegalovirus Antibody IgM 0.6 <0.9 08/29/2012 10:49 AM CDT [facility] Blood specimen (specimen) BLOOD SPECIMEN / Unknown 08/25/2012 9:55 PM CDT 08/25/2012 10:11 PM CDT Narrative [facility] - 08/29/2012 10:49 AM CDT ? <0.9 Negative ??0.9 - 1.0 Equivocal ?>=1.1 Positive Aliya Garcia MD LAB - CHEMISTRY STEPHON AKINS Performing Organization Address City/[facility] Co de Phone Number [facility] [address] [place] [address] * XR CHEST PA AND LATERAL (08/25/2012 [...] PET CT WHOLE BODY (06/14/2012 11:29 AM ARTIFICIAL FOLIAGE ARRANGER) Only the most recent of2 resultswithin the time period is included. Anatomical Region Laterality Modality Other Impressions 06/23/2012 5:30 PM ARTIFICIAL FOLIAGE ARRANGER IMPRESSION: 1. Partial response to chemoembolization of [...] 5:30 PM . Narrative 06/23/2012 5:30 PM ARTIFICIAL FOLIAGE ARRANGER ORIGINAL REPORT Procedure: PET/CT Study. Referring Physician: [...] OF CARE (AMB) [facility] (06/14/2012 8:51 AM ARTIFICIAL FOLIAGE ARRANGER) Only the most recent of2 resultswithin the time period is included. Nanette Falk MD LAB - POINT OF CARE ORDERABLES [facility] * IP CONSULT TO ANESTHESIOLOGY (02/12/2012 [...] - 15.5 g/dL 02/09/2012 6:46 PM CDT [facility] Blood specimen (specimen) BLOOD SPECIMEN / Unknown 02/09/2012 5:33 PM CDT 02/09/2012 5:41 PM CDT Marcel Jordan MD LAB - HEMATOLOGY ORDERABLES [facility] [address] [place] [address] * IP CONSULT TO PEDIATRIC SURGERY (02/08/2012 9:43 PM CDT) Ashely Altman DO INPATIENT CONSULT ORDERABLES * POTASSIUM BLOOD (02/03/2012 5:11 AM CDT) Potassium 4.1 3.5 - 5.1 mmol/L 02/03/2012 5:36 AM CDT [facility] Blood specimen (specimen) BLOOD SPECIMEN / Unknown 02/03/2012 5:11 AM CDT 02/03/2012 5:21 AM CDT Jose Mac MD LAB - CHEMISTR Y ORDERABLES Performing Organization Address [facility] Co de Phone Number [facility] [address] [place] [address] * (ABNORMAL) BLOOD GASES CAP + CA+ PANEL (01/30/2012 7:58 AM CDT) pH Capillary 7.358 7.35 - 7.45 pH 01/30/2012 8:07 AM [facility] pCO2 Capillary 44.0 32 - 45 mm hg 01/30/2012 8:07 AM [facility] pO2 Capillary 64.0(L) 83 - 108 mm hg 01/30/2012 8:07 AM [facility] O2 Saturation Capillary 93.3(L) 95 - 99 % 01/30/2012 8:07 AM [facility] Oxyhemoglobin Capillary 91.4(L) 94 - 98 % 01/30/2012 8:07 AM [facility] Calcium Ionized Adjusted 1.24 1.15 - 1.29 mmol/L 01/30/2012 8:07 AM [facility] Temp 37.0 C 01/30/2012 8:07 AM [facility] O2 Content Capillary 16.6 15 - 23 mg/dL 01/30/2012 8:07 AM [facility] Carboxyhemoglobin Capillary 1.4(H) 0 - 0.8 % 01/30/2012 8:07 AM [facility] Methemoglobin Capillary 0.6 0.2 - 0.6 % 01/30/2012 8:07 AM CDT [facility] Calcium Ionized 1.27 mmol/L 201 2 8:07 AM CDT [facility] Hemoglobin Capillary 12.9 11.5 - 15.5 gm/dL 01/30/2012 8:07 AM CDT [facility] BE Capillary -0.7 -2 - 2 mmol/L 01/30/2012 8:07 AM CDT [facility] P50 Capillary 24.62(L) 25.3 - 26.8 mm hg 01/30/2012 8:07 AM CDT [facility] Blood specimen (specimen) CAPILLARY BLOOD / Unknown 01/30/2012 7:58 AM CDT 01/30/2012 8:04 AM CDT Narrative [facility] - 01/30/2012 8:07 AM CDT NOTE: Reference ranges are for Arterial Blood. Giuseppe Sandoval MD LAB - BLOOD GASES OR DERABLES Performing Organization Address City/State/[facility] Co de Phone Number [facility] [address] [place] [address] * IR VASCULAR CLOSURE DEVICE (01/29/2012 1:38 [...] sheath: ??5 Fr vascular sheath Catheters: ??4 Burkinan glide Cobra catheter Catheter positions and pre-embolization angiographic imagin Burkinan Cobra catheter celiac artery; 4 Burkinan Cobra catheter/common hepatic artery; 4 Burkinan Cobra catheter right posterior hepatic artery/4 Burkinan Cobra catheter/middle hepatic artery/4 Burkinan Cobra catheter right anterior hepatic artery/4 Burkinan Cobra catheter left gastric artery/4 Burkinan Cobra catheter left hepatic artery Embolization catheter [...] 035 Bentson wire over which a 5 Burkinan vascular sheath with a sidearm flush was attached. Using a 4 Burkinan Cobra catheter and 035 Glidewire, the celiac artery was catheterized. Digital subtraction angiography was performed demonstrating the left hepatic artery replaced to the left gastric artery. Next, the 4 Burkinan Cobra catheter was used to catheterize the common hepatic artery demonstrated tumor blush supplied by branches of the middle hepatic, right anterior and right posterior sector hepatic arteries. Next, the 4 Burkinan Cobra catheter was advanced into the clothing room supervisor right hepatic artery and digital subtraction angiography [...] in the embolized arterial branches. The 4 [place]kinan Cobra catheter was used to catheterize the left gastric artery and its subtraction angiography was performed. Next, the 4 Burkinan Cobra catheter was advanced into the left [...] sheath: 5 Fr vascular sheath Catheters: 4 Burkinan glide Cobra catheter Catheter positions and pre-embolization angiographic imagin FrenchCobra catheter celiac artery; 4 Burkinan Cobra catheter/common hepaticartery; 4 Burkinan Cobra catheter right posterior hepatic artery/4 FrenchCobra catheter/middle hepatic artery/4 Burkinan Cobra catheter right anterior hepatic artery/4 Burkinan Cobracatheter left gastric artery/4 Burkinan Cobra catheter left hepatic artery Embolization catheter [...] 035 Bentson wire over which a 5 Burkinan vascular sheath with a sidearmflush was attached. Using a 4 Burkinan Cobra catheter and 035 Glidewire, the celiac artery wascatheterized. Digital subtraction angiography was performed demonstratingthe left hepatic artery replaced to the left gastric artery. Next, the 4 Burkinan Cobra catheter was used to catheterize the commonhepatic artery demonstrated tumor blush supplied by branches of the middlehepatic, right anterior and right posterior sector hepatic arteries. Next, the 4 Burkinan Cobra catheter was advanced into the clothing room supervisor righthepatic artery and digital subtraction angiography followed [...] stasis inthe embolized arterial branches. The 4 Burkinan Cobra catheter was used to catheterize the left gastricartery and its subtraction angiography was performed. Next, the 4 Burkinan Cobra catheter was advanced into the left [...] sheath: ??5 Fr vascular sheath Catheters: ??4 Burkinan glide Cobra catheter Catheter positions and pre-embolization angiographic imagin Burkinan Cobra catheter celiac artery; 4 Burkinan Cobra catheter/common hepatic artery; 4 Burkinan Cobra catheter right posterior hepatic artery/4 Burkinan Cobra catheter/middle hepatic artery/4 Burkinan Cobra catheter right anterior hepatic artery/4 Burkinan Cobra catheter left gastric artery/4 Burkinan Cobra catheter left hepatic artery Embolization catheter [...] 035 Bentson wire over which a 5 Burkinan vascular sheath with a sidearm flush was attached. Using a 4 Burkinan Cobra catheter and 035 Glidewire, the celiac artery was catheterized. Digital subtraction angiography was performed demonstrating the left hepatic artery replaced to the left gastric artery. Next, the 4 Burkinan Cobra catheter was used to catheterize the common hepatic artery demonstrated tumor blush supplied by branches of the middle hepatic, right anterior and right posterior sector hepatic arteries. Next, the 4 Burkinan Cobra catheter was advanced into the clothing room supervisor right hepatic artery and digital subtraction angiography [...] in the embolized arterial branches. The 4 Burkinan Cobra catheter was used to catheterize the left gastric artery and its subtraction angiography was performed. Next, the 4 Burkinan Cobra catheter was advanced into the left [...] sheath: 5 Fr vascular sheath Catheters: 4 Burkinan glide Cobra catheter Catheter positions and pre-embolization angiographic imagin FrenchCobra catheter celiac artery; 4 Burkinan Cobra catheter/common hepaticartery; 4 Burkinan Cobra catheter right posterior hepatic artery/4 FrenchCobra catheter/middle hepatic artery/4 Burkinan Cobra catheter right anterior hepatic artery/4 Burkinan Cobracatheter left gastric artery/4 Burkinan Cobra catheter left hepatic artery Embolization catheter [...] 035 Bentson wire over which a 5 Burkinan vascular sheath with a sidearmflush was attached. Using a 4 Burkinan Cobra catheter and 035 Glidewire, the celiac artery wascatheterized. Digital subtraction angiography was performed demonstratingthe left hepatic artery replaced to the left gastric artery. Next, the 4 Burkinan Cobra catheter was used to catheterize the commonhepatic artery demonstrated tumor blush supplied by branches of the middlehepatic, right anterior and right posterior sector hepatic arteries. Next, the 4 Burkinan Cobra catheter was advanced into the clothing room supervisor righthepatic artery and digital subtraction angiography followed [...] stasis inthe embolized arterial branches. The 4 Burkinan Cobra catheter was used to catheterize the left gastricartery and its subtraction angiography was performed. Next, the 4 Burkinan Cobra catheter was advanced into the left [...] sheath: ??5 Fr vascular sheath Catheters: ??4 Burkinan glide Cobra catheter Catheter positions and pre-embolization angiographic imagin Burkinan Cobra catheter celiac artery; 4 Burkinan Cobra catheter/common hepatic artery; 4 Burkinan Cobra catheter right posterior hepatic artery/4 Burkinan Cobra catheter/middle hepatic artery/4 Burkinan Cobra catheter right anterior hepatic artery/4 Burkinan Cobra catheter left gastric artery/4 Burkinan Cobra catheter left hepatic artery Embolization catheter [...] 035 Bentson wire over which a 5 Burkinan vascular sheath with a sidearm flush was attached. Using a 4 Burkinan Cobra catheter and 035 Glidewire, the celiac artery was catheterized. Digital subtraction angiography was performed demonstrating the left hepatic artery replaced to the left gastric artery. Next, the 4 Burkinan Cobra catheter was used to catheterize the common hepatic artery demonstrated tumor blush supplied by branches of the middle hepatic, right anterior and right posterior sector hepatic arteries. Next, the 4 Burkinan Cobra catheter was advanced into the clothing room supervisor right hepatic artery and digital subtraction angiography [...] in the embolized arterial branches. The 4 Burkinan Cobra catheter was used to catheterize the left gastric artery and its subtraction angiography was performed. Next, the 4 Burkinan Cobra catheter was advanced into the left [...] sheath: 5 Fr vascular sheath Catheters: 4 Burkinan glide Cobra catheter Catheter positions and pre-embolization angiographic imagin FrenchCobra catheter celiac artery; 4 Burkinan Cobra catheter/common hepaticartery; 4 Burkinan Cobra catheter right posterior hepatic artery/4 FrenchCobra catheter/middle hepatic artery/4 Burkinan Cobra catheter right anterior hepatic artery/4 Burkinan Cobracatheter left gastric artery/4 Burkinan Cobra catheter left hepatic artery Embolization catheter [...] 035 Bentson wire over which a 5 Burkinan vascular sheath with a sidearmflush was attached. Using a 4 Burkinan Cobra catheter and 035 Glidewire, the celiac artery wascatheterized. Digital subtraction angiography was performed demonstratingthe left hepatic artery replaced to the left gastric artery. Next, the 4 Burkinan Cobra catheter was used to catheterize the commonhepatic artery demonstrated tumor blush supplied by branches of the middlehepatic, right anterior and right posterior sector hepatic arteries. Next, the 4 Burkinan Cobra catheter was advanced into the clothing room supervisor righthepatic artery and digital subtraction angiography followed [...] stasis inthe embolized arterial branches. The 4 Burkinan Cobra catheter was used to catheterize the left gastricartery and its subtraction angiography was performed. Next, the 4 Burkinan Cobra catheter was advanced into the left [...] sheath: ??5 Fr vascular sheath Catheters: ??4 Burkinan glide Cobra catheter Catheter positions and pre-embolization angiographic imagin Burkinan Cobra catheter celiac artery; 4 Burkinan Cobra catheter/common hepatic artery; 4 Burkinan Cobra catheter right posterior hepatic artery/4 Burkinan Cobra catheter/middle hepatic artery/4 Burkinan Cobra catheter right anterior hepatic artery/4 Burkinan Cobra catheter left gastric artery/4 Burkinan Cobra catheter left hepatic artery Embolization catheter [...] 035 Bentson wire over which a 5 Burkinan vascular sheath with a sidearm flush was attached. Using a 4 Burkinan Cobra catheter and 035 Glidewire, the celiac artery was catheterized. Digital subtraction angiography was performed demonstrating the left hepatic artery replaced to the left gastric artery. Next, the 4 Burkinan Cobra catheter was used to catheterize the common hepatic artery demonstrated tumor blush supplied by branches of the middle hepatic, right anterior and right posterior sector hepatic arteries. Next, the 4 Burkinan Cobra catheter was advanced into the clothing room supervisor right hepatic artery and digital subtraction angiography [...] in the embolized arterial branches. The 4 Burkinan Cobra catheter was used to catheterize the left gastric artery and its subtraction angiography was performed. Next, the 4 Burkinan Cobra catheter was advanced into the left [...] sheath: 5 Fr vascular sheath Catheters: 4 Burkinan glide Cobra catheter Catheter positions and pre-embolization angiographic imagin FrenchCobra catheter celiac artery; 4 Burkinan Cobra catheter/common hepaticartery; 4 Burkinan Cobra catheter right posterior hepatic artery/4 FrenchCobra catheter/middle hepatic artery/4 Burkinan Cobra catheter right anterior hepatic artery/4 Burkinan Cobracatheter left gastric artery/4 Burkinan Cobra catheter left hepatic artery Embolization catheter [...] 035 Bentson wire over which a 5 Burkinan vascular sheath with a sidearmflush was attached. Using a 4 Burkinan Cobra catheter and 035 Glidewire, the celiac artery wascatheterized. Digital subtraction angiography was performed demonstratingthe left hepatic artery replaced to the left gastric artery. Next, the 4 Burkinan Cobra catheter was used to catheterize the commonhepatic artery demonstrated tumor blush supplied by branches of the middlehepatic, right anterior and right posterior sector hepatic arteries. Next, the 4 Burkinan Cobra catheter was advanced into the clothing room supervisor righthepatic artery and digital subtraction angiography followed [...] stasis inthe embolized arterial branches. The 4 Burkinan Cobra catheter was used to catheterize the left gastricartery and its subtraction angiography was performed. Next, the 4 Burkinan Cobra catheter was advanced into the left [...] sheath: ??5 Fr vascular sheath Catheters: ??4 Burkinan glide Cobra catheter Catheter positions and pre-embolization angiographic imagin Burkinan Cobra catheter celiac artery; 4 Burkinan Cobra catheter/common hepatic artery; 4 Burkinan Cobra catheter right posterior hepatic artery/4 Burkinan Cobra catheter/middle hepatic artery/4 Burkinan Cobra catheter right anterior hepatic artery/4 Burkinan Cobra catheter left gastric artery/4 Burkinan Cobra catheter left hepatic artery Embolization catheter [...] 035 Bentson wire over which a 5 Burkinan vascular sheath with a sidearm flush was attached. Using a 4 Burkinan Cobra catheter and 035 Glidewire, the celiac artery was catheterized. Digital subtraction angiography was performed demonstrating the left hepatic artery replaced to the left gastric artery. Next, the 4 Burkinan Cobra catheter was used to catheterize the common hepatic artery demonstrated tumor blush supplied by branches of the middle hepatic, right anterior and right posterior sector hepatic arteries. Next, the 4 Burkinan Cobra catheter was advanced into the clothing room supervisor right hepatic artery and digital subtraction angiography [...] in the embolized arterial branches. The 4 Burkinan Cobra catheter was used to catheterize the left gastric artery and its subtraction angiography was performed. Next, the 4 Burkinan Cobra catheter was advanced into the left [...] sheath: 5 Fr vascular sheath Catheters: 4 Burkinan glide Cobra catheter Catheter positions and pre-embolization angiographic imagin FrenchCobra catheter celiac artery; 4 Burkinan Cobra catheter/common hepaticartery; 4 Burkinan Cobra catheter right posterior hepatic artery/4 FrenchCobra catheter/middle hepatic artery/4 Burkinan Cobra catheter right anterior hepatic artery/4 Burkinan Cobracatheter left gastric artery/4 Burkinan Cobra catheter left hepatic artery Embolization catheter [...] 035 Bentson wire over which a 5 Burkinan vascular sheath with a sidearmflush was attached. Using a 4 Burkinan Cobra catheter and 035 Glidewire, the celiac artery wascatheterized. Digital subtraction angiography was performed demonstratingthe left hepatic artery replaced to the left gastric artery. Next, the 4 Burkinan Cobra catheter was used to catheterize the commonhepatic artery demonstrated tumor blush supplied by branches of the middlehepatic, right anterior and right posterior sector hepatic arteries. Next, the 4 Burkinan Cobra catheter was advanced into the clothing room supervisor righthepatic artery and digital subtraction angiography followed [...] stasis inthe embolized arterial branches. The 4 Burkinan Cobra catheter was used to catheterize the left gastricartery and its subtraction angiography was performed. Next, the 4 Burkinan Cobra catheter was advanced into the left [...] included. ABO O 01/29/2012 10:06 AM CDT [facility] Rh Type POS 01/29/2012 10:06 AM CDT [facility] Miscellaneous samples (specimen) BLOOD SPECIMEN / Unknown 01/29/2012 9:01 AM CDT 01/29/2012 9:13 AM CDT Jose Mac MD LAB - BLOOD BA NK ORDERABLES [facility] * ANTIBODY SCREEN (01/29/2012 9:01 AM CDT) Antibody Screen NEG 2 10:21 AM CDT [facility] Miscellaneous samples (specimen) BLOOD SPECIMEN / Unknown 01/29/2012 9:01 AM CDT 01/29/2012 9:13 AM CDT Jose Mac MD LAB - BLOOD BA NK ORDERABLES [facility] * VITAMIN B12 BINDING CAPACITY (01/11/2012 4:45 PM CDT) Vitamin B12 Binding Capacity 1,661 800 - 2,600 pg/mL 01/13/2012 10:54 AM CDT [facility] Comment: INTERPRETIVE INFORMATION: Vitamin B12 Binding Capacity This assay measures the unsaturated binding capacity of serum for Vitamin B12. Blood specimen (specimen) BLOOD SPECIMEN / Unknown 01/11/2012 4:45 PM CDT 01/11/2012 5:00 PM CDT Marcel Jordan MD LAB - CHEMISTRY O RDERAFANNY Performing Organization Address City/[facility] Co de Phone Number [facility] [address] [place] [address] * CEA BLOOD (01/11/2012 4:45 PM CDT) Only the most recent of2 resultswithin the time period is included. CEA <0.50 <5.01 (ng/ml) 01/12/2012 11:24 AM CDT [facility] Comment Results repeated to verify. 01/12/2012 11:24 AM CDT [facility] Blood specimen (specimen) BLOOD SPECIMEN / Unknown 01/11/2012 4:45 PM CDT 01/11/2012 5:00 PM CDT Marcel Jordan MD LAB - CHEMISTRY O RDERABLES Performing Organization Address [facility] Co de Phone Number [facility] [address] * ECHO CONSULT - PEDIATRIC (01/07/2012 1:23 PM CDT) 01/07/2012 1:23 PM CDT Narrative [facility] - 01/07/2012 2:20 PM CDT , Transthoracic Echocardiogram 2D, M-mode, Doppler, and Color Doppler Name: LILI AGUILA MR #: [id number] Study date: 01/07/2012 Age: 11 years : 2000 Gender: Female Ht: 63.4 in / 161 cm Wt: 136.4 lb / 62 kg BSA: 1.65 m?? HR: BP: / age: LEIGH: Maternal age: ACCOUNTING TECHNICIAN: ??MTimmy Heath MD PEDIATRIC ECHO COVER MACHINE OPERATOR: ??Raquel Veronica RDCS History: Pre liver transplant [...] Color Doppler Name: LILI AGUILA MR #: [id number] Study date: 01/07/2012 Age: 11 years : 2000 Gender: Female Ht: 63.4 in / 161 cm Wt: 136.4 lb / 62 kg BSA: 1.65 m?? HR: BP: / age: LEIGH: Maternal age: ACCOUNTING TECHNICIAN: Yassine Heath MD PEDIATRIC ECHO COVER MACHINE OPERATOR: Raquel Veronica RDCS History: Pre liver transplant [...] 64.9 ml Biju Walker MD ECHO ORDERABLES [facility] [address] [place] [address] * (ABNORMAL) HERPES SIMPLEX 1+2 ANTIBODY IGG/IGM PANEL (01/07/2012 7:01 AM CDT) Herpes Simplex Virus 1/2 Antibody IgG 0.69 <=0.89 IV 01/09/2012 9:00 PM [facility] Comment: INTERPRETIVE INFORMATION: HSV 1/2 COMBINED Ab [...] IgM 1.44(H) <=0.89 IV 01/09/2012 9:00 PM [facility] Comment: INTERPRETIVE INFORMATION: HSV Type 1/2 Combined [...] Walker MD LAB - CHEMISTRY STEPHON AKINS [facility] Organization Address City/State/[facility] Phone Number [facility] [address] [place] [address] * VARICELLA ZOSTER ANTIBODY IGG (01/07/2012 7:01 AM CDT) Varicella zoster Virus Antibody IgG 192.9 IV 01/09/2012 6:43 PM CDT [facility] Comment: INTERPRETIVE INFORMATION: VZV Ab, IgG ??134 [...] - CHEMISTRY STEPHON AKINS Performing Organization Address City/[facility] Co de Phone Number [facility] [address] [place] [address] * HEPATITIS A IGM ANTIBODY (01/07/2012 7:01 AM CDT) HAV Antibody IgM Non Reactive Non Reactive 01/08/2012 11:31 AM CDT [facility] Blood specimen (specimen) BLOOD SPECIMEN / Unknown 01/07/2012 7:01 AM CDT 01/07/2012 7:22 AM CDT Biju Walker MD LAB - CHEMISTRY STEPHON AKINS [facility] [address] [place] [address] * HEPATITIS A ANTIBODY (01/07/2012 7:01 AM CDT) Hepatitis A Virus Antibody Total Positive 01/08/2012 11:48 AM CDT [facility] Blood specimen (specimen) BLOOD SPECIMEN / Unknown 01/07/2012 7:01 AM CDT 01/07/2012 7:32 AM CDT Biju Walker MD LAB - CHEMISTRY STEPHON AKINS [facility] Organization Address City/State/ZIP Co de Phone Number [facility] [address] [place] [address] * HOMOVANILLIC ACID URINE RANDOM (01/01/2012 3:07 PM CDT) Collection Time Hours 24 hr 01/06/2012 6:35 AM T [facility] Volume 24 Hour Urine 1,900 mL 01/06/2012 6:35 AM T [facility] Homovanillic Acid 24 Hour Urine Not Applicable mg/d 01/06/2012 6:35 AM T [facility] Creatinine Urine 45 mg/dL 01/06/20 12 6:35 AM T [facility] Creatinine 24 Hour Urine 855 300 - 1,300 mg/d 01/06/2012 6:35 AM T [facility] Interpretation Homovanillic Acid Urine Normal 01/06/2012 6:35 AM T [facility] Comment: INTERPRETIVE INFORMATION: Homovanillic Acid (HVA), Urine [...] Urine 1.7 mg/L 01/06/2012 6:35 AM T [facility] HVA Urine mg/g creat 4 0 - 15 mg/g 01/06/2012 6:35 AM T [facility] Comment: REFERENCE INTERVAL: HVA, Urine mg/g APPEALS OFFICER Access complete set of age- and/or gender-specific reference intervals for this test in the [facility] Test Directory (SEC Watch). Urine specimen (specimen) URINE / Unknown 01/01/2012 3:07 PM CDT 01/01/2012 4:10 PM CDT Daisy Jernigan MD LAB - URINE PERSONAL CARE AIDE RY ORDERABLES [facility] [address] [place] [address] * VMA URINE TIMED (01/01/2012 3:06 PM CDT) VMA Urine mg/g Creat 3 0 - 9 mg/g 01/06/2012 6:53 AM T [facility] Comment: REFERENCE INTERVAL: VMA, Urine mg/g APPEALS OFFICER Access complete set of age- and/or gender-specific reference intervals for this test in the [facility] Test Directory (SEC Watch). VMA mg/L Urine 1.4 mg/L 01/06/2012 6:53 AM [facility] Collection Time Hours Random hr 01/06/2012 6:53 AM [facility] Volume 24 Hour Urine 10 mL 01/06/2012 6:53 AM T [facility] VMA mg/24 Hour Urine Not Applicable mg/d 01/06/2012 6:53 AM [facility] Creatinine Urine 46 mg/dL 01/06/20 12 6:53 AM [facility] Creatinine 24 Hour Urine Not Applicable 300 - 1300 mg/d 01/06/2012 6:53 AM [facility] Interp VMA Acid Urine Normal 01/06/2012 6:53 AM [facility] Comment: INTERPRETIVE INFORMATION: Vanillylmandelic Acid (VMA), Urine [...] CDT Daisy Jernigan MD LAB - URINE PERSONAL CARE AIDE RY ORDERABLES [facility] [address] [place] [address] * (ABNORMAL) CATECHOLAMINES URINE FRACTIONATED (01/01/2012 3:06 PM CDT) Dopamine 24 Hour Urine Not Applicable ug/d 01/05/2012 5:44 PM CDT [facility] Comment: REFERENCE INTERVAL: Dopamine, Urine - ug/d Access complete set of age- and/or gender-specific reference intervals for this test in the [facility] Test Directory (SEC Watch). Collection Time Hours 24 hr 01/05/2012 5:44 PM T [facility] Volume 24 Hour Urine 1,900 mL 01/05/2012 5:44 PM T [facility] Epinephrine Urine ug/L 1 ug/L 01/05/2012 5:44 PM CDT [facility] Norepinephrine Urine 6 ug/L 01/05/2012 5:44 PM CDT [facility] Dopamine Urine 137 ug/L 01/05/2012 5:44 PM CDT [facility] Epinephrine Urine ug/g APPEALS OFFICER 2(L) 3 - 58 ug/g APPEALS OFFICER 01/05/2012 5:44 PM T [facility] Epinephrine 24 Hour Urine Not Applicable ug/d 01/05/2012 5:44 PM T [facility] Comment: REFERENCE INTERVAL: Epinephrine, Urine - ug/d Access complete set of age- and/or gender-specific reference intervals for this test in the [facility] Test Directory (SEC Watch). Norepinephrine Urine ug/g APPEALS OFFICER 13 4 - 105 ug/g APPEALS OFFICER 01/05/2012 5:44 PM CDT [facility] Norepinephrine 24 Hour Urine Not Applicable ug/d 01/05/2012 5:44 PM T [facility] Comment: REFERENCE INTERVAL: Norepinephrine, Urine - ug/d Access complete set of age- and/or gender-specific reference intervals for this test in the [facility] Test Directory (SEC Watch). Dopamine APPEALS OFFICER Urine 298 120 - 450 ug/g APPEALS OFFICER 01/05/2012 5:44 PM CDT [facility] Interpretation Catecholamines Urine See Note 01/05/2012 5:44 PM T [facility] Comment: TEST INFORMATION: Catecholamines Panel, Urine Free [...] reference intervals for this test in the [facility] Test Directory (SEC Watch). Creatinine Urine 46 mg/dL 01/05/20 12 5:44 PM CDT [facility] Creatinine 24 Hour Urine 874 300 - 1,300 mg/d 01/05/2012 5:44 PM CDT [facility] Urine specimen (specimen) TIMED URINE SPECIMEN / Unknown 01/01/2012 3:06 PM CDT 01/01/2012 4:10 PM CDT Daisy Jernigan MD LAB - URINE PERSONAL CARE AIDE RY ORDERABLES Performing Organization Address City/State/[facility] Co de Phone Number [facility] [address] [place] [address] * SURGICAL LOCALIZATION (01/01/2012 10:14 AM CDT) [...] attending surgeon, held ultrasound probe while Dr. marse, the surgical fellow, performed two percutaneous liver biopsies. IMPRESSION Intraoperative ultrasound as above. Fan Stein MD US ORDERABLES * CYTOGENETICS CANCER PANEL (01/01/2012 12:00 AM CDT) Only the most recent of2 resultswithin the time period is included. Pathologist [facility] Indication for Study Omentum Lesion With Perihepatic LAD/Liver Mass 01/15/2012 2:04 PM CDT [facility] Results Cytogenetics The direct harvest of this lesion failed to yield any dividing cells. 01/15/2012 2:04 PM CDT [facility] Interpretation It is not necessary to proceed to an array-CGH per Dr. Saenz on this specimen. The liver lesion tissue was found normal ([id number]; arr(1-22,X)x2 ??Normal Female) by array-CGH. 01/15/2012 2:04 PM CDT [facility] Other (qualifier value) TUMOR TISSUE SPECIMEN / Unknown 01/01/2012 01/04/2012 10:29 AM CDT Charanjit Burt MD LAB - PATHOLOGY/CYT OLOGY ORDERABLES [facility] [address] [place] [address] * FECAL LEUKOCYTES (12/31/2011 6:54 PM CDT) WBC Feces/HPF No Fecal WBC's seen (none) 12/31/2011 8:05 PM CDT [facility] Stool specimen (specimen) STOOL SPECIMEN / Unknown 12/31/2011 6:54 PM CDT 12/31/2011 7:07 PM CDT Daisy Jernigan MD LAB - BODY FLUID OR DERABLES [facility] [address] [place] [address] * MRI ABDOMEN WITH AND WITHOUT CONTRAST [...] B PANEL (12/30/2011 4:38 AM CDT) Pathologist [facility] HBsAb REACTIVE(A) Non Reactive 01/01/2012 9:50 AM CDT [facility] HBsAg Non Reactive Non Reactive 01/01/2012 9:50 AM CDT [facility] HBc Antibody IgM Non Reactive Non Reactive 01/01/2012 9:50 AM CDT [facility] Blood specimen (specimen) BLOOD SPECIMEN / Unknown 12/30/2011 4:38 AM CDT 12/30/2011 5:17 AM CDT Isaac Lewis MD LAB - CHEMISTRY STEPHON AKINS [facility] Organization Address City/State/ZIP Co de Phone Number [facility] [address] [place] [address] * HEPATITIS C ANTIBODY (12/30/2011 4:38 AM CDT) Pathologist [facility] HCV Antibody Screen Non Reactive Non Reactive 01/01/2012 9:50 AM CDT [facility] Blood specimen (specimen) BLOOD SPECIMEN / Unknown 12/30/2011 4:38 AM CDT 12/30/2011 5:17 AM CDT Narrative [facility] - 01/01/2012 9:50 AM CDT Nonreactive - Antibodies to HCV were not detected, result does not exclude early acute HCV infection. Isaac Lewis MD LAB - CHEMISTRY STEPHON AKINS [facility] [place] [address] * HCG BETA BLOOD TUMOR MARKER (12/30/2011 4:38 AM CDT) Beta-hCG Tumor Marker <1 0 - 5 IU/L 12/31/2011 5:00 AM CDT [facility] Comment: INTERPRETIVE INFORMATION: Beta hCG, Serum Quantitation [...] reference intervals for this test in the [facility] Test Directory (SEC Watch). Blood specimen (specimen) BLOOD SPECIMEN / Unknown 12/30/2011 4:38 AM CDT 12/30/2011 5:17 AM CDT Isaac Lewis MD LAB - CHEMISTRY STEPHON AKINS [facility] [address] [place] [address] * CT OUTSIDE CONSULTATION (12/30/2011 1:12 AM [...] Rito Smith DO CT ORDERABLES Care Teams Control Clerk Relationship Specialty Start Date End Date Josiah Palacios MD [address] [place] [id number] PCP - General Family Medicine 01/19/23 Stephanie Lozano, MARINA Registered Nurse 12/16/16 Rei Ann, PharmD Pharmacist 01/12/17
--- OUTSIDE RECORDS SUMMARY | 2024-05-19 13:53 | XMS_ITS | Encounter Summary ---
Author Organization [facility] Address [address] [address] [address] Care [address] Advisor Name Role Phone Josiah Palacios MD Primary Care Provider [phone] Stephanie Lozano RN Unavailable Unav ailable Rei Ann PharmD Unavailable Unavai Tesfaye Rivera MD Primary Care Provider [phone] Frida De Los Santos MD Unavailable Mariama Rudd DIRECTOR OF BUSINESS APPLICATIONS Unavailable [phone] Josiah Palacios MD Primary Care Provider [phone] Marcel Ram MD Unavailable [phone] Encounter Details Date Type Department Care Team (Late st Contact Info) Description 07/21/2018 Telephone [facility] Pediatrics - [address] [address] Biju Walker MD [address] [place] [id number] Social History Tobacco Use Types Packs/Day Years [...] CDT Office Visit [facility] - PROPOSAL ANALYST [address] [place] [phone] Sabra Rocha MD [address] [facility] [address] [place] [address] 08/09/2024 3:00 PM CDT Office Visit [facility] - [place] [address] [facility] [place] [phone] Chayo Tyson PA-C [address] [facility] DE[place] [phone] 10/30/2024 11:30 AM CDT Office Visit [facility] - [place] [address] [facility] [place] [phone] Juan Landry MD [facility] [facility] [address] [place] [address] documented as of this encounter Visit Diagnoses Not on filedocumented in this encounter Additional Health Concerns Infection Onset Date Last Indicated Resolved Time COVID-19 Under Investigation 02/16/2020 02/16/2020 02/16/2020 3:58 AM CDT COVID-19 Confirmed 02/16/2020 02/16/2020 0 4:33 AM UNDERPRESSER HAND documented as of this encounter Care Teams Road Advisor Relationship Specialty Start Date End Date Josiah Palacios MD PCP - General Family Medicine 12/30/11 12/06/21 Tesfaye Baca MD [address] [place] [address] PCP - General 12/07/21 01/18/23 Frida De Los Santos MD [address] [facility] [address] [place] [address] PCP - Attributed-[employer] 07/18/22 3 Josiah Palacios MD [address] [place] [address] PCP - General Family Medicine 01/19/23 Marcel Ram MD [address] [facility] [address] [place] [address] PCP - Attributed-[employer] 01/17/23 4 Stephanie Lozano, RN Registered Nurse 12/16/16 Rei Ann, PharmD Pharmacist 01/12/17 Mariama Rudd, DIRECTOR OF BUSINESS APPLICATIONS Outpatient Superintendent Plant [employer] Care Management 12/08/2211/18 documented as of this encounter
[2024-05-19 13:54] LABS: Hematocrit 34.2 % (37.0-47.0); Hemoglobin 11.5 g/dL (12.0-15.0); Immature Platelet Fraction Pct 6.2 % (0.9-11.2); Mean Corpuscular HGB Conc 33.6 g/dl (32-36); Mean Corpuscular Hemoglobin 31.8 pg (26-34); Mean Corpuscular Volume 94.5 fl (80-100); Mean Platelet Volume 11.6 fl (7.4-10.4); Platelet Count Result 53 k/mm3 (150-375); Red Blood Count 3.62 M/mm3 (4.2-5.4); Red Cell Distribution Width 12.9 % (11.5-14.5)
[2024-05-19 14:05] LABS: Alanine Aminotransferase 78 U/L (6-35); Albumin Level 3.4 g/dL (3.5-5.1); Alkaline Phosphatase 167 U/L (38-126); Anion Gap 9 mmol/L (4-12); Aspartate Amino Transferase 64 U/L (14-36); Bilirubin,Total 1.2 mg/dL (0.2-1.3); Blood Urea Nitrogen 15 mg/dL (7-17); Calcium 8.1 mg/dL (8.4-10.2); Carbon Dioxide 23 mmol/L (22-30); Chloride 105 mmol/L (98-107); Estimated Glomerular Filt Rate > 60; Glucose 86 mg/dL (65-110); Lipase 71 U/L (23-300); Sodium 137 mmol/L (137-145)
[2024-05-19 14:05] LABS: INR 1.1; Prothrombin Time 14.8 Seconds (11.1-14.7)
[2024-05-19 14:06] LABS: Partial Thromboplastin Time 31.1 Seconds (22.3-36.8)
--- NOTE | 2024-05-19 14:13 | ED.GENADULT ---
HPI - General Adult General Chief complaint: Upper Respiratory Infection Stated complaint: flu, hx liver transplant Time Seen by Provider: 05/19/24 12:54 History of Present Illness HPI narrative: 24-year-old female with history of liver transplant in 2012 at [facility], patient does follow-up with [facility]. Patient has had no issues with rejection in the last 2 years. Patient does take Prograf. Patient was diagnosed with influenza on Wednesday, patient was also started on antibiotic for urinary tract infection. Patient was called Wednesday to stop the antibiotic. Patient was told if she does not have improving symptoms from influenza that she would need to be evaluated emergency department. Patient states that she has been able to take her medications without issue but is having some nausea vomiting body aches and fatigue. Patient did have a fever of 102.5 upon arrival emergency department. Patient reports he did take some Tylenol this morning. Related Data Home Medications ?Medication ?Instructions ?Recorded ?Confirmed ?Last Taken ?Type tacrolimus 1 mg capsule, 3 mg PO .COMPLEX 01/26/22 05/19/24 05/19/24 History immediate-release Allergies Allergy/AdvReac Type Severity Reaction Status Date / Time hydromorphone Allergy Severe HALLUCINATI Verified 05/19/24 17:33 ONS morphine AdvReac Severe SEVERE Verified 05/19/24 17:33 HIVES UNCONTROLLED WITH BENADRYL Review of Systems Review of Systems: All systems reviewed & are unremarkable except as noted in HPI and below PMFSH Past Medical History Medical History Immunosuppression due to drug therapy Liver cancer Surgical History Surgical History History of liver transplant (2012) Social History Social History (Updated 05/19/24 @ 21:36 by Sienna Lugo PA-C) Social History: Surrogate medical decision maker: Leona Aguila, mother ([phone]). Code status: Full code. Smoking status: Never smoker Second hand tobacco smoke exposure: No Alcohol intake: never Substance use: never Substance use type: does not use Do You Feel Safe in your Home?: Yes Lack of Transportation: No Lack of Food: Never True Current Housing: Decline to Answer Concerned About Future Housing: Decline to Answer Difficulty Paying Gas/Electric Bills: Decline to Answer Difficulty Paying for Meds: Decline to Answer Currently Unemployed: Decline to Answer Education: Decline to Answer Difficulty w/ Childcare or Family Care: Decline to Answer Additional living arrangements comments: Lives with spouse and their 2 young children. Spiritual care concerns: No Exam Narrative: APPEARANCE: Ill-appearing HEAD: normocephalic, atraumatic. EYES: PERRLA/EOMI, conjunctivae clear. NOSE: Normal no drainage EARS:TMS clear with good light reflex. THROAT: Pharynx clear, no exudate. NECK: Supple. No adenopathy, no masses. RESPIRATORY: Airway patent, respirations nonlabored. Clear to auscultation bilaterally, no rales, rhonchi, wheezing. CARDIOVASCULAR: Regular rate and rhythm without murmurs rubs or gallops. ABDOMINAL: Diffuse abdominal tenderness to palpation MUSCULOSKELETAL: Moves all extremities. Strength/ROM intact, No edema, No calf tenderness. NEURO: Alert. Cranial nerves II through XII intact. Grossly intact SKIN: Warm, dry. Normal Color Course Vital Signs Vital signs: Vital Signs Temperature 98.4 F 05/19/24 10:34 Pulse Rate 82 05/19/24 10:34 Respiratory Rate 16 05/19/24 10:34 Blood Pressure 104/66 05/19/24 10:34 Pulse Oximetry 98 05/19/24 10:34 Oxygen Delivery Room Air 05/19/24 10:34 Temperature 97.8 F 05/19/24 19:29 Pulse Rate 94 05/19/24 19:29 Respiratory Rate 18 05/19/24 19:29 Blood Pressure 98/52 L 05/19/24 19:44 Pulse Oximetry 96 05/19/24 19:29 Oxygen Delivery Room Air 05/19/24 20:00 Medical Decision Making [facility] Narrative Medical decision making narrative: 24-year-old female history of liver transplant in 2012 presented emergency department for evaluation for cough body aches fatigue and fever. Patient did take Tylenol prior to arrival. Patient's temperature was 102. Patient was treated with IV Toradol. Patient is a white count of 1.6 and platelets of 53. Patient has elevations of AST ALT alk-phos and albumin which are similar to her baseline. No elevation and lipase. Chest x-ray was concerning for a left basilar pneumonia. Blood cultures were ordered. Patient was started on Rocephin, azithromycin and vancomycin. [facility] transplant team was consulted. And patient was accepted. The anticipated be 48-72 hours before a bed would be available. Discussed case with hospitalist patient was accepted for admission to [place] into the bed would be available at [facility]. Patient and family were updated on the plan for transfer and admission. Differential Diagnosis Differential Diagnosis: COVID, RSV, influenza, pneumonia, transplant rejection, sepsis Vital Signs Vital Signs: Vital Signs Temperature 98.4 F 05/19/24 10:34 Pulse Rate 82 05/19/24 10:34 Respiratory Rate 16 05/19/24 10:34 Blood Pressure 104/66 05/19/24 10:34 Pulse Oximetry 98 05/19/24 10:34 Oxygen Delivery Room Air 05/19/24 10:34 Temperature 97.8 F 05/19/24 19:29 Pulse Rate 94 05/19/24 19:29 Respiratory Rate 18 05/19/24 19:29 Blood Pressure 98/52 L 05/19/24 19:44 Pulse Oximetry 96 05/19/24 19:29 Oxygen Delivery Room Air 05/19/24 20:00 Lab Data Lab results reviewed: Yes I reviewed the patient's lab results. 05/19/24 13:27 05/19/24 13:29 Labs: Lab Results 05/19/24 05/19/24 05/19/24 Range/Units 13:27 13:29 13:37 WBC 1.6 L* (4.5-10.0) K/mm3 RBC 3.62 L (4.2-5.4) M/mm3 Hgb 11.5 L (12.0-15.0) g/dL Hct 34.2 L (37.0-47.0) % MCV 94.5 (80-100) fl MCH 31.8 (26-34) pg MCHC 33.6 (32-36) g/dl RDW 12.9 (11.5-14.5) % Plt Count 53 L D (150-375) k/mm3 MPV 11.6 H (7.4-10.4) fl Immature Gran % (Auto) Not Reportable Neut % (Auto) Not Reportable Lymph % (Auto) Not Reportable [place] % (Auto) Not Reportable Eos % (Auto) Not Reportable Baso % (Auto) Not Reportable Lymph # (Auto) Not Reportable [place] # (Auto) Not Reportable Eos # (Auto) Not Reportable Baso # (Auto) Not Reportable Abs Immat Gran (auto) Not Reportable Absolute Neuts (auto) Not Reportable Absolute Nucleated RBC Not Reportable Total Counted 50 Neutrophils % (Manual) 28 L (46-73) % Band Neutrophils % 2 (0-6) % Lymphocytes % (Manual) 15 L (18-44) % Monocytes % (Manual) 4 (3-9) % Eosinophils % (Manual) 1 (0-4) % Basophils % (Manual) 0 (0-1) % Nucleated RBC % Not Reportable Abs Neuts (Manual) 0.48 L (1.7-7.2) K/mm3 Abs Lymphs (Manual) 0.24 L (1.1-4.5) K/mm3 Abs Monocytes (Manual) 0.06 L (0.1-0.90) K/mm3 Absolute Eos (Manual) 0.01 L (0.02-0.50) K/mm3 Abs Basophils (Manual) 0.00 (0.0-0.1) K/mm3 Platelet Estimate Decreased (Adequate) % Immature Plt Fraction 6.2 (0.9-11.2) % Schistocytes None seen PT 14.8 H (11.1-14.7) Seconds INR 1.1 APTT 31.1 (22.3-36.8) Seconds Sodium 137 (137-145) mmol/L Potassium 4.0 (3.4-5.0) mmol/L Chloride 105 (98-107) mmol/L Carbon Dioxide 23 (22-30) mmol/L Anion Gap 9 (4-12) mmol/L BUN 15 (7-17) mg/dL Creatinine 0.57 L (0.7-1.0) mg/dL Estim Creat Clear Calc Not Reportable Estimated GFR > 60 (59 - ) Glucose 86 (65-110) mg/dL Calcium 8.1 L (8.4-10.2) mg/dL Total Bilirubin 1.2 (0.2-1.3) mg/dL AST 64 H (14-36) U/L ALT 78 H (6-35) U/L Alkaline Phosphatase 167 H (38-126) U/L Total Protein 7.0 (6.3-8.2) g/dL Albumin 3.4 L (3.5-5.1) g/dL Lipase 71 (23-300) U/L Urine Color Dark yellow (Yellow) Urine Appearance Cloudy H (Clear) Urine pH 6.0 (5.0-9.0) Ur Specific [place] 1.022 (1.001-1.035) Urine Protein Negative (Negative) mg/dL Urine Glucose (UA) Negative (Negative) mg/dL Urine Ketones 2+ H (Negative) mg/dL Ur Blood (Man) Non-hemolyzed trace H (Negative) Urine Nitrate Negative (Negative) Urine Bilirubin Negative (Negative) Urine Urobilinogen 1.0 (<2.0) mg/dL Add Ur Microanalysis Reviewed Leukocyte Esterase Rfl Negative (Negative) ZITA/UL Urine RBC 0-2 (0-2) /hpf Urine WBC 0-5 (0-3) /hpf Ur Squamous Epith Cells Moderate (Few) /hpf Urine Bacteria None seen /hpf Urine Casts 3-5 Urine Mucus Present /lpf Nasal MRSA (PCR) (NOT DETECTE) Ur L.pneumophila Ag Pending Urine Pneumococcal Ag Pending 05/19/24 Range/Units 15:36 WBC (4.5-10.0) K/mm3 RBC (4.2-5.4) M/mm3 Hgb (12.0-15.0) g/dL Hct (37.0-47.0) % MCV (80-100) fl MCH (26-34) pg MCHC (32-36) g/dl RDW (11.5-14.5) % Plt Count (150-375) k/mm3 MPV (7.4-10.4) fl Immature Gran % (Auto) Neut % (Auto) Lymph % (Auto) [place] % (Auto) Eos % (Auto) Baso % (Auto) Lymph # (Auto) [place] # (Auto) Eos # (Auto) Baso # (Auto) Abs Immat Gran (auto) Absolute Neuts (auto) Absolute Nucleated RBC Total Counted Neutrophils % (Manual) (46-73) % Band Neutrophils % (0-6) % Lymphocytes % (Manual) (18-44) % Monocytes % (Manual) (3-9) % Eosinophils % (Manual) (0-4) % Basophils % (Manual) (0-1) % Nucleated RBC % Abs Neuts (Manual) (1.7-7.2) K/mm3 Abs Lymphs (Manual) (1.1-4.5) K/mm3 Abs Monocytes (Manual) (0.1-0.90) K/mm3 Absolute Eos (Manual) (0.02-0.50) K/mm3 Abs Basophils (Manual) (0.0-0.1) K/mm3 Platelet Estimate (Adequate) % Immature Plt Fraction (0.9-11.2) % Schistocytes PT (11.1-14.7) Seconds INR APTT (22.3-36.8) Seconds Sodium (137-145) mmol/L Potassium (3.4-5.0) mmol/L Chloride (98-107) mmol/L Carbon Dioxide (22-30) mmol/L Anion Gap (4-12) mmol/L BUN (7-17) mg/dL Creatinine (0.7-1.0) mg/dL Estim Creat Clear Calc Estimated GFR (59 - ) Glucose (65-110) mg/dL Calcium (8.4-10.2) mg/dL Total Bilirubin (0.2-1.3) mg/dL AST (14-36) U/L ALT (6-35) U/L Alkaline Phosphatase (38-126) U/L Total Protein (6.3-8.2) g/dL Albumin (3.5-5.1) g/dL Lipase (23-300) U/L Urine Color (Yellow) Urine Appearance (Clear) Urine pH (5.0-9.0) Ur Specific [place] (1.001-1.035) Urine Protein (Negative) mg/dL Urine Glucose (UA) (Negative) mg/dL Urine Ketones (Negative) mg/dL Ur Blood (Man) (Negative) Urine Nitrate (Negative) Urine Bilirubin (Negative) Urine Urobilinogen (<2.0) mg/dL Add Ur Microanalysis Leukocyte Esterase Rfl (Negative) ZITA/UL Urine RBC (0-2) /hpf Urine WBC (0-3) /hpf Ur Squamous Epith Cells (Few) /hpf Urine Bacteria /hpf Urine Casts Urine Mucus /lpf Nasal MRSA (PCR) Not detected (NOT DETECTE) Ur L.pneumophila Ag Urine Pneumococcal Ag Imaging Data Radiologist's impression: Impressions Chest X-Ray 05/19/24 14:14 Impression: 1: Left basilar pneumonia. Discharge Plan Discharge Clinical Impression: Pneumonia, Influenza A Patient Disposition: Still a Patient Condition: Serious
[2024-05-19 14:14] LABS: White Blood Count 1.6 K/mm3 (4.5-10.0)
[2024-05-19 14:20] LABS: Band Neutrophils Percent 2 % (0-6); Basophils Percent Manual 0 % (0-1); Eosinophils Absolute Manual 0.01 K/mm3 (0.02-0.50); Eosinophils Percent Manual 1 % (0-4); Lymphocytes Absolute Manual 0.24 K/mm3 (1.1-4.5); Lymphocytes Percent Manual 15 % (18-44); Monocytes Absolute Manual 0.06 K/mm3 (0.1-0.90); Monocytes Percent Manual 4 % (3-9); Neutrophils Absolute Manual 0.48 K/mm3 (1.7-7.2); Neutrophils Percent Manual 28 % (46-73); Total Cells Counted 50
[2024-05-19 14:21] LABS: Platelet Estimate Decreased (Adequate); Schistocytes None Seen
[2024-05-19 14:30] LABS: Add Urine Microscopic? YES; Appearance Urine Cloudy (Clear); Bacteria Urine None Seen /hpf; Bilirubin Urine Negative (Negative); Blood Urine Non-Hemolyzed Trace (Negative); Color Urine Dark Yellow (Yellow); Glucose Urine UA Negative (Negative); Ketones Urine 2+ mg/dL (Negative); Leukocyte Esterase Ur Negative LEU/UL (Negative); Mucus Urine Present /lpf; Need Manual Microscopic Reviewed; Nitrate Urine Negative (Negative); Protein Urine Negative (Negative); RBC Urine 0-2 /hpf (0-2); Specific Grav Ur 1.022 (1.001-1.035); Squamous Epithelial Cell Urine Moderate /hpf (Few); WBC Urine 0-5 /hpf (0-3)
[2024-05-19] MEDS: SODIUM CHLORIDE 0.9% IV 1,000 ML 999 ML IV CONT (14:55)
[2024-05-19] MEDS: HEIGHT NEEDED FOR VANCO DOSING 1 EACH XX (15:43)
[2024-05-19] MEDS: AZITHROMYCIN 500 MG/NS 250 ML 500 MG/250 ML BAG 250 MG IVPB (15:44)
--- NOTE | 2024-05-19 16:16 | P.HP_ITS ---
H&P: HPI History of Present Illness Date/Time: 05/19/24 16:15 Chief Complaint: Influenza, feeling worse. Narrative: This is a very pleasant 24-year-old female with history of liver cancer status post liver transplant 2012 on tacrolimus who presented to the emergency department for evaluation as she is feeling worse after having been diagnosed with influenza A on Wednesday. The patient provides the following history. She has not been feeling well for over a week and she was seen in urgent care on Wednesday at which time she was diagnosed with influenza and a suspected urinary tract infection. She was prescribed oseltamivir and antibiotics but received phone on Wednesday stating that her urine culture came back negative and she was told to discontinue the antibiotics. Unfortunately she continues to feel unwell with generalized malaise, fatigue, fever, body aches, nausea, and vomiting. Her son had influenza last week. She denies headache, neck ache, chest pain, pleuritic pain, shortness of breath, hematemesis, and dysuria. In the ED: Temperature was as high as 102? F. Blood pressure was low as 96/52 and she is intermittently tachycardic in the low 100s. Labs are significant for WBC count of 1.6, hemoglobin 11.5, platelet 53, sodium 137, potassium 4.0, BUN 15, creatinine 0.57, glucose 86. Chest x-ray showed left basilar pneumonia. She was accepted by the transplant team at [facility] however they do not anticipate having a bed for 48 to 72 hours and they recommend the patient be admitted here and started on antibiotics and antivirals. Review of Systems Review of Systems: 12 systems were reviewed and are negativ e except for as per HPI. [facility] Past Medical History Medical History Immunosuppression due to drug therapy Liver cancer Surgical History Surgical History History of liver transplant (2012) Social History Social History (Updated 05/19/24 @ 21:36 by Sienna Lugo PA-C) Social History: Surrogate medical decision maker: Leona Aguila, ([phone]). Code status: Full code. Smoking status: Never smoker Second hand tobacco smoke exposure: No Alcohol intake: never Substance use: never Substance use type: does not use Do You Feel Safe in your Home?: Yes Lack of Transportation: No Lack of Food: Never True Current Housing: Decline to Answer Concerned About Future Housing: Decline to Answer Difficulty Paying Gas/Electric Bills: Decline to Answer Difficulty Paying for Meds: Decline to Answer Currently Unemployed: Decline to Answer Education: Decline to Answer Difficulty w/ Childcare or Family Care: Decline to Answer Additional living arrangements comments: Lives with spouse and their 2 young children. Spiritual care concerns: No Meds Home Medications and Allergies Home Medications ?Medication ?Instructions ?Recorded ?Confirmed ?Type tacrolimus 1 mg capsule, 3 mg PO .COMPLEX 01/26/22 05/19/24 History immediate-release ferrous sulfate 325 mg (65 mg 324 mg (0.9969 x 325 mg (65 mg 01/29/22 05/19/24 Rx iron) tablet iron)) PO BIDWM #60 tabs oseltamivir 75 mg capsule (Tamiflu) 75 mg PO Q12HR #7 caps 01/29/22 05/19/24 Rx Allergies Allergy/AdvReac Type Severity Reaction Status Date / Time hydromorphone Allergy Severe HALLUCINATI Verified 05/19/24 17:33 ONS morphine AdvReac Severe SEVERE Verified 05/19/24 17:33 HIVES UNCONTROLLED WITH BENADRYL Vital Signs Vital Signs - 24 hr 05/19/24 10:34 05/19/24 11:14 05/19/24 11:18 Temperature 98.4 F 99.5 F Pulse Rate 82 99 Respiratory Rate 16 20 Blood Pressure 104/66 96/52 L Pulse Oximetry 98 98 98 Oxygen Delivery Room Air Room Air 05/19/24 13:31 05/19/24 15:16 Temperature 102.0 F H 100.6 F H Pulse Rate 116 H 100 Respiratory Rate 15 20 Blood Pressure 111/68 Pulse Oximetry 100 98 Oxygen Delivery Exam Narrative: General: Mildly ill-appearing female in the semi-Cortes position in bed. Weight: 71.2 kg. BMI: 25.3. HEENT: PERRL, EOMI. Sclera anicteric. Tacky mucous membranes. Neck: Supple. Respiratory: Respirations are nonlabored. Scattered rales heard at the left base. Cardiovascular: Regular rate and rhythm with S1-S2. Gastrointestinal: Abdomen is soft, nontender, and nondistended with positive bowel sounds. Skin: Warm and dry. Extremities: No cyanosis, clubbing, or edema. Radial and pedal pulses intact. Neurological: Alert. Cranial nerves 2-12 are grossly intact. No gross focal deficits to casual conversation. Psychiatric: Pleasant and cooperative with normal mood and affect. Judgment and insight intact. H&P: Results Labs Labs: Short CBC 05/19/24 Range/Units 13:27 WBC 1.6 L* (4.5-10.0) K/mm3 Hgb 11.5 L (12.0-15.0) g/dL Hct 34.2 L (37.0-47.0) % Plt Count 53 L D (150-375) k/mm3 BMP 05/19/24 13:29 Sodium 137 Potassium 4.0 Chloride 105 Carbon Dioxide 23 BUN 15 Creatinine 0.57 L Glucose 86 Calcium 8.1 L Liver Function 05/19/24 Range/Units 13:29 Total Bilirubin 1.2 (0.2-1.3) mg/dL AST 64 H (14-36) U/L ALT 78 H (6-35) U/L Alkaline Phosphatase 167 H (38-126) U/L Albumin 3.4 L (3.5-5.1) g/dL Urine 05/19/24 Range/Units 13:37 Urine Color Dark yellow (Yellow) Urine Appearance Cloudy H (Clear) Urine pH 6.0 (5.0-9.0) Ur Specific [place] 1.022 (1.001-1.035) Urine Protein Negative (Negative) mg/dL Urine Glucose (UA) Negative (Negative) mg/dL Imaging Chest X-Ray 05/19/24 14:14 Impression: 1: Left basilar pneumonia. Assessment and Plan Assessment and plan (1) Left lower lobe pneumonia: Code(s): J18.9 - Pneumonia, unspecified organism Status: Acute (2) Influenza A: Code(s): J10.1 - Influenza due to other identified influenza virus with other respiratory manifestations Status: Acute (3) Pancytopenia: Code(s): D61.818 - Other pancytopenia Status: Acute (4) Immunosuppression due to drug therapy: Code(s): D84.821 - Immunodeficiency due to drugs; Z79.899 - Other half-way (current) drug therapy Status: Acute Plan The patient presented to the emergency department for evaluation of worsening symptoms after having been diagnosed with influenza A on Wednesday as detailed in HPI. Labs, imaging, EKG, and all reports were personally reviewed. Continue oseltamivir which was started on Wednesday. Chest x-ray shows left basilar pneumonia and she has been started on azithromycin, ceftriaxone, and vancomycin to cover for possible concomitant bacterial pneumonia given her immunocompromised state. Attempt sputum for culture. Check Legionella pneumococcal antigens as well as mycoplasma IgM. MRSA nasal swab is pending. She has chronic pancytopenia, presumably related to tacrolimus, but her white blood cell count seems lower than what it typically runs with moderate neutropenia and she has been placed in reverse isolation. She has been accepted by the transplant service at [facility] and they anticipate a bed will open in the next 48 to 72 hours. Her home medications will be reviewed and resumed appropriate. Findings and treatment plan were discussed with the patient. Questions were solicited and answered to satisfaction. The patient's medical management will be taken over by the hospitalist team in a.m. Quality VTE Prophylaxis VTE prophylaxis: mechanical ordered If No VTE Prophylaxis Answer both mechanical and pharmacologic: Reason no pharmacologic proph: medical contraindication thrombocytopenia Hospitalist MIPS Advance Care Plan I have confirmed that the patient's Advanced Care Plan is present, code status is documented, or surrogate decision maker is listed in patient medical record.: Yes Medication Reconciliation I have utilized all available resources to obtain, update and review the patients current medications (includes all prescriptions, OTC, herbals, cannabis, and nutritional supplements).: Yes
[2024-05-19] MEDS: VANCOMYCIN 1,750 MG/NS 500 ML 1,750 MG/500 ML BAG 250 MG IVPB (16:57)
[2024-05-19 17:04] LABS: MRSA (PCR) NOT DETECTED (NOT DETECTE)
[2024-05-19] MEDS: ACETAMINOPHEN 325 MG TABLET 650 MG PO (17:46)
--- NOTE | 2024-05-19 20:13 | PC.NURSE ---
Call to main lab to add legionella and pneumococcal to urine sample obtained earlier in the day. Skye verified receipt.
[2024-05-19] MEDS: OSELTAMIVIR PHOSPHATE 75 MG CAPSULE PO (21:59)
--- NOTE | 2024-05-19 22:36 | PHAR ---
Drug Name:Larry Tacrolimus Ingredients:?Tacrolimus (Anhydrous) -- 1 MG Color:?Brown ,?White [place] Imprint:??644 LOGO Imprint Code Description:??The capsule is imprinted 644 on the body and a LOGO which resembles an S inside a triangle on the cap.Form:??Oral Capsule
[2024-05-19] MEDS: TACROLIMUS 1 MG 3 EACH PO (23:46)
--- NOTE | 2024-05-19 23:51 | PC.NURSE ---
Verified with patient dosage for tacrolimus. States 3mg in a.m. and 4mg hs.
[2024-05-20 04:00] VITALS: BP 100/57; PULSE 77; RESP 18; TEMP 36.6; O2SAT 97
[2024-05-20 05:43] LABS: Hemoglobin 10.8 g/dL (12.0-15.0); Immature Platelet Fraction Pct 5.6 % (0.9-11.2); Mean Corpuscular HGB Conc 33.8 g/dl (32-36); Mean Platelet Volume 11.5 fl (7.4-10.4); Platelet Count Result 52 k/mm3 (150-375); Red Blood Count 3.37 M/mm3 (4.2-5.4); Red Cell Distribution Width 13.1 % (11.5-14.5); White Blood Count 3.8 K/mm3 (4.5-10.0)
[2024-05-20 06:00] LABS: Alanine Aminotransferase 58 U/L (6-35); Albumin Level 2.9 g/dL (3.5-5.1); Alkaline Phosphatase 132 U/L (38-126); Anion Gap 6 mmol/L (4-12); Aspartate Amino Transferase 52 U/L (14-36); Bilirubin,Total 1.3 mg/dL (0.2-1.3); Blood Urea Nitrogen 16 mg/dL (7-17); Calcium 7.5 mg/dL (8.4-10.2); Carbon Dioxide 23 mmol/L (22-30); Chloride 108 mmol/L (98-107); Estimated CRCL calculation 98 ml/min; Estimated Glomerular Filt Rate > 60; Glucose 89 mg/dL (65-110); Magnesium 1.3 mg/dL (1.6-2.3); Potassium 4.1 mmol/L (3.4-5.0); Sodium 137 mmol/L (137-145)
[2024-05-20 06:21] LABS: Band Neutrophils Percent 2 % (0-6); Lymphocytes Absolute Manual 0.38 K/mm3 (1.1-4.5); Lymphocytes Percent Manual 10 % (18-44); Monocytes Absolute Manual 0.19 K/mm3 (0.1-0.90); Monocytes Percent Manual 5 % (3-9); Neutrophils Absolute Manual 3.23 K/mm3 (1.7-7.2); Neutrophils Percent Manual 83 % (46-73); Platelet Estimate Decreased (Adequate); Total Cells Counted 100
[2024-05-20 06:22] LABS: Schistocytes None Seen
[2024-05-20] MEDS: VANCOMYCIN 1,250 MG/NS 250 ML 1,250 MG/250 ML BAG 166.67 MG IVPB ×2 (06:29→16:56)
[2024-05-20] MEDS: OSELTAMIVIR PHOSPHATE 75 MG CAPSULE PO ×2 (08:10→21:20)
[2024-05-20] MEDS: TACROLIMUS 1 MG 3 EACH PO ×2 (08:12→21:21)
[2024-05-20] MEDS: ACETAMINOPHEN 325 MG TABLET 650 MG PO (08:15)
[2024-05-20] MEDS: MAGNESIUM SULF 2 GM/WATER 50ML 2 GM/50 ML BAG IVPB (10:28)
[2024-05-20 10:59] VITALS: O2SAT 97
--- NOTE | 2024-05-20 13:09 | P.PNIM_ITS ---
Progress Note: A&P Assessment and Plan (1) Left lower lobe pneumonia: Code(s): J18.9 - Pneumonia, unspecified organism Status: Acute Assessment and Plan: The patient presented with worsening symptoms after having been diagnosed with influenza A. CXR showing LLL airspace disease. WBC is 1600 related to her immunosuppressive agents and influenza. Fever curve better. Resumed on oseltamivir which was started on Wednesday. Also started on azithromycin, ceftriaxone, and vancomycin to cover for possible concomitant bacterial pneumonia given her immunocompromised state. Sputum culture ordered (will repeat now that he cough is more productive). Legionella, Ag, pneumococcal antigens and mycoplasma IgM pending. MRSA nasal swab was negative. (2) Influenza A: Code(s): J10.1 - Influenza due to other identified influenza virus with other respiratory manifestations Status: Acute Assessment and Plan: As above (3) Pancytopenia: Code(s): D61.818 - Other pancytopenia Status: Acute Assessment and Plan: Patient has chronic pancytopenia, presumably related to tacrolimus WBC was 1600 (ANC 960). Influenza also contributing to the lower WBC. WBC better today at 3800. Plt count low on admission at 53K and unchanged 52K. Plt count lower then usual but stable. Hgb stable in the 11 range. Follow (4) Immunosuppression due to drug therapy: Code(s): D84.821 - Immunodeficiency due to drugs; Z79.899 - Other adjunct faculty for medical terminology (current) drug therapy Status: Acute Assessment and Plan: Patient immunosuppressed on Tacrolimus for her liver transplant. She has been accepted by the transplant service at [facility] and they anticipate a bed will open in the next 48 to 72 hours. Follow Plan DVT Prophylaxis - SCDs Code status - full Subjective Date/time seen: 05/20/24 13:09 Interval history: 24yo female with liver CA s/p liver transplant on tacrolimus here for feeling worse after having been diagnosed with influenza A. SOB better. Using the incentive spirometry regularly. Cough now productive of brown-yellow sputum. Had mild left sided palpable abd pain but better today. Exam Narrative: Tm 102.0 97.9 100/57 77 18 97% ra Gen - NARD Chest - left base crackles o/w clear. CV - RRR S1/S2 Abd - Soft, no RUQ pain. mild superficial abd wall pain noted left upper abd. Ext - No pedal edema Psych - Nml mood and affect Skin - Warm and dry Objective Data Vital Signs Vital Signs: Vital Signs - 24 hr 05/19/24 13:31 05/19/24 15:16 05/19/24 18:16 Temperature 102.0 F H 100.6 F H 98.3 F Pulse Rate 116 H 100 99 Respiratory Rate 15 20 19 Blood Pressure 111/68 119/60 Pulse Oximetry 100 98 98 Oxygen Delivery 05/19/24 18:24 05/19/24 19:29 05/19/24 19:44 Temperature 97.8 F Pulse Rate 94 Respiratory Rate 18 Blood Pressure 110/48 L 98/52 L Pulse Oximetry 96 Oxygen Delivery Room Air 05/19/24 20:00 05/20/24 04:00 05/20/24 10:59 Temperature 97.9 F Pulse Rate 77 Respiratory Rate 18 Blood Pressure 100/57 L Pulse Oximetry 97 97 Oxygen Delivery Room Air Room Air Intake/Output Intake/Output: Intake & Output 05/17/24 05/18/24 05/19/24 05/20/24 23:59 23:59 23:59 23:59 Intake Total 1300 660 Output Total 300 600 Balance 1000 60 Meds/Results Medications: Active Medications Generic Name Dose Route Start Last Admin Trade Name Freq PRN Reason Stop Dose Admin Acetaminophen 650 mg 05/19/24 16:06 05/20/24 08:15 Acetaminophen 325 Mg Tablet PO 650 mg Q4H PRN Administration Mild Pain (1-3) or Fever Ceftriaxone Sodium 1 gm in 50 mls @ 100 mls/hr 05/20/24 12:00 05/20/24 12:50 Rocephin 1 Gm/Ns 50 Ml IVPB 100 mls/hr Q24H RADHA Administration Azithromycin 500 mg in 250 mls @ 250 mls/hr 05/20/24 12:00 Zithromax IVPB Q24H RADHA Vancomycin HCl 1,250 mg in 250 mls @ 166.667 mls/hr 05/20/24 05:00 05/20/24 07:59 Vancomycin 1,250 Mg/Ns 250 Ml IVPB Infused Q12H RADHA Infusion (Tacrolimus 1 Mg 3 mg 05/19/24 21:45 05/20/24 08:12 Capsule) Home Med PO 06/18/24 21:44 3 mg Q12HR RADHA Administration Oseltamivir Phosphate 75 mg 05/19/24 21:00 05/20/24 08:10 Oseltamivir Phosphate 75 Mg Capsule PO 05/24/24 20:59 75 mg Q12HR RADHA Administration Radiology Results: ITS Impressions Chest X-Ray 05/19/24 14:14 Impression: 1: Left basilar pneumonia. Labs Labs: Laboratory Results - last 24 hr 05/19/24 05/19/24 05/19/24 13:27 13:29 13:37 WBC 1.6 L* RBC 3.62 L Hgb 11.5 L Hct 34.2 L MCV 94.5 MCH 31.8 MCHC 33.6 RDW 12.9 Plt Count 53 L D MPV 11.6 H Immature Gran % (Auto) Not Reportable Neut % (Auto) Not Reportable Lymph % (Auto) Not Reportable [place] % (Auto) Not Reportable Eos % (Auto) Not Reportable Baso % (Auto) Not Reportable Lymph # (Auto) Not Reportable [place] # (Auto) Not Reportable Eos # (Auto) Not Reportable Baso # (Auto) Not Reportable Abs Immat Gran (auto) Not Reportable Absolute Neuts (auto) Not Reportable Absolute Nucleated RBC Not Reportable Total Counted 50 Neutrophils % (Manual) 28 L Band Neutrophils % 2 Lymphocytes % (Manual) 15 L Monocytes % (Manual) 4 Eosinophils % (Manual) 1 Basophils % (Manual) 0 Nucleated RBC % Not Reportable Abs Neuts (Manual) 0.48 L Abs Lymphs (Manual) 0.24 L Abs Monocytes (Manual) 0.06 L Absolute Eos (Manual) 0.01 L Abs Basophils (Manual) 0.00 Platelet Estimate Decreased % Immature Plt Fraction 6.2 Schistocytes None seen PT 14.8 H INR 1.1 APTT 31.1 Sodium 137 Potassium 4.0 Chloride 105 Carbon Dioxide 23 Anion Gap 9 BUN 15 Creatinine 0.57 L Estim Creat Clear Calc Not Reportable Estimated GFR > 60 Glucose 86 Calcium 8.1 L Magnesium Total Bilirubin 1.2 AST 64 H ALT 78 H Alkaline Phosphatase 167 H Total Protein 7.0 Albumin 3.4 L Lipase 71 Urine Color Dark yellow Urine Appearance Cloudy H Urine pH 6.0 Ur Specific [place] 1.022 Urine Protein Negative Urine Glucose (UA) Negative Urine Ketones 2+ H Ur Blood (Man) Non-hemolyzed trace H Urine Nitrate Negative Urine Bilirubin Negative Urine Urobilinogen 1.0 Add Ur Microanalysis Reviewed Leukocyte Esterase Rfl Negative Urine RBC 0-2 Urine WBC 0-5 Ur Squamous Epith Cells Moderate Urine Bacteria None seen Urine Casts 3-5 Urine Mucus Present Nasal MRSA (PCR) 05/19/24 05/20/24 15:36 05:26 WBC 3.8 L RBC 3.37 L Hgb 10.8 L Hct 32.0 L MCV 95.0 MCH 32.0 MCHC 33.8 RDW 13.1 Plt Count 52 L MPV 11.5 H Immature Gran % (Auto) Not Reportable Neut % (Auto) Not Reportable Lymph % (Auto) Not Reportable [place] % (Auto) Not Reportable Eos % (Auto) Not Reportable Baso % (Auto) Not Reportable Lymph # (Auto) Not Reportable [place] # (Auto) Not Reportable Eos # (Auto) Not Reportable Baso # (Auto) Not Reportable Abs Immat Gran (auto) Not Reportable Absolute Neuts (auto) Not Reportable Absolute Nucleated RBC Not Reportable Total Counted 100 Neutrophils % (Manual) 83 H Band Neutrophils % 2 Lymphocytes % (Manual) 10 L Monocytes % (Manual) 5 Eosinophils % (Manual) Basophils % (Manual) Nucleated RBC % Not Reportable Abs Neuts (Manual) 3.23 Abs Lymphs (Manual) 0.38 L Abs Monocytes (Manual) 0.19 Absolute Eos (Manual) Abs Basophils (Manual) Platelet Estimate Decreased % Immature Plt Fraction 5.6 Schistocytes None seen PT INR APTT Sodium 137 Potassium 4.1 Chloride 108 H Carbon Dioxide 23 Anion Gap 6 BUN 16 Creatinine 0.71 Estim Creat Clear Calc 98 Estimated GFR > 60 Glucose 89 Calcium 7.5 L Magnesium 1.3 L Total Bilirubin 1.3 AST 52 H ALT 58 H Alkaline Phosphatase 132 H Total Protein 6.0 L Albumin 2.9 L Lipase Urine Color Urine Appearance Urine pH Ur Specific [place] Urine Protein Urine Glucose (UA) Urine Ketones Ur Blood (Man) Urine Nitrate Urine Bilirubin Urine Urobilinogen Add Ur Microanalysis Leukocyte Esterase Rfl Urine RBC Urine WBC Ur Squamous Epith Cells Urine Bacteria Urine Casts Urine Mucus Nasal MRSA (PCR) Not detected
[2024-05-20] MEDS: AZITHROMYCIN 500 MG/NS 250 ML 500 MG/250 ML BAG 250 MG IVPB (13:22)
[2024-05-20 14:24] VITALS: BP 99/58; PULSE 81; RESP 16; TEMP 36.7; O2SAT 99
[2024-05-20] MEDS: SACCHAROMYCES BOULARDII 250 MG CAPSULE PO (16:56)
[2024-05-20 20:31] VITALS: BP 100/54; PULSE 77; RESP 16; TEMP 36.1; O2SAT 98
[2024-05-21 04:37] LABS: Basophils Percent Auto 0.4 % (0.2-1.2); Eosinophils Absolute Auto 0.1 K/mm3 (0-0.3); Eosinophils Percent Auto 2.1 % (0-4.4); Hematocrit 30.5 % (37.0-47.0); Hemoglobin 10.3 g/dL (12.0-15.0); Immature Granulocyte Absolute 0.01 K/mm3 (0.00-0.031); Immature Granulocyte Percent A 0.4 % (0-0.5); Immature Platelet Fraction Pct 4.7 % (0.9-11.2); Lymphocytes Absolute Auto 0.54 K/mm3 (0.9-3.2); Lymphocytes Percent Auto 22.9 % (18.3-44.2); Mean Corpuscular HGB Conc 33.8 g/dl (32-36); Mean Corpuscular Volume 94.7 fl (80-100); Mean Platelet Volume 11.2 fl (7.4-10.4); Monocytes Absolute Auto 0.3 K/mm3 (0.1-0.6); Neutrophils Absolute Auto 1.5 K/mm3 (1.3-6.7); Neutrophils Percent Auto 63.2 % (45.5-73.1); Platelet Count Result 46 k/mm3 (150-375); Red Blood Count 3.22 M/mm3 (4.2-5.4); Red Cell Distribution Width 13.1 % (11.5-14.5); White Blood Count 2.4 K/mm3 (4.5-10.0)
[2024-05-21 04:45] LABS: Alanine Aminotransferase 46 U/L (6-35); Albumin Level 2.7 g/dL (3.5-5.1); Alkaline Phosphatase 126 U/L (38-126); Anion Gap 6 mmol/L (4-12); Aspartate Amino Transferase 40 U/L (14-36); Bilirubin,Total 0.6 mg/dL (0.2-1.3); Blood Urea Nitrogen 15 mg/dL (7-17); Calcium 7.6 mg/dL (8.4-10.2); Carbon Dioxide 22 mmol/L (22-30); Chloride 111 mmol/L (98-107); Estimated CRCL calculation 109 ml/min; Estimated Glomerular Filt Rate > 60; Glucose 97 mg/dL (65-110); Magnesium 1.6 mg/dL (1.6-2.3); Potassium 4.1 mmol/L (3.4-5.0); Sodium 139 mmol/L (137-145)
[2024-05-21 04:54] LABS: Vancomycin Trough 13.7 ug/mL (10.0-20.0)
[2024-05-21 05:17] VITALS: BP 121/64; PULSE 74; RESP 16; TEMP 36.6; O2SAT 98
[2024-05-21] MEDS: VANCOMYCIN 1,500 MG/NS 500 ML 1,500 MG/500 ML BAG 250 MG IVPB (06:30)
[2024-05-21] MEDS: ACETAMINOPHEN 325 MG TABLET 650 MG PO (06:32)
[2024-05-21 09:00] VITALS: O2SAT 98
[2024-05-21] MEDS: SACCHAROMYCES BOULARDII 250 MG CAPSULE PO (09:02)
[2024-05-21] MEDS: OSELTAMIVIR PHOSPHATE 75 MG CAPSULE PO (09:02)
[2024-05-21] MEDS: TACROLIMUS 1 MG 3 EACH PO (09:03)
[2024-05-21] MEDS: AZITHROMYCIN 500 MG/NS 250 ML 500 MG/250 ML BAG 250 MG IVPB (12:22)
--- NOTE | 2024-05-21 12:52 | P.DS_ITS ---
DS: Admitting Diagnosis Discharge Date 05/21/24 Admitting Diagnosis Influenza, feeling worse DS: Discharge Diagnosis Discharge Diagnosis (1) Left lower lobe pneumonia: Code(s): J18.9 - Pneumonia, unspecified organism Status: Acute (2) Influenza A: Code(s): J10.1 - Influenza due to other identified influenza virus with other respiratory manifestations Status: Acute (3) Pancytopenia: Code(s): D61.818 - Other pancytopenia Status: Acute (4) Immunosuppression due to drug therapy: Code(s): D84.821 - Immunodeficiency due to drugs; Z79.899 - Other extermination supervisor (current) drug therapy Status: Acute DS: Summary Hospital Course Reason for hospitalization: 24yo female with liver CA s/p liver transplant on tacrolimus here for feeling worse after having been diagnosed with influenza A. Please see H&P for details. Hospital Course: The patient presented with worsening symptoms after having been diagnosed with influenza A. CXR showing LLL airspace disease. WBC was 1600 related to her immunosuppressive agents and influenza. Resumed the oseltamivir which was started on Wednesday. Also started on azithromycin, ceftriaxone, and vancomycin to cover for possible concomitant bacterial pneumonia given her immunocompromised state. Fever resolved. Sputum culture was negative. Legionella, Ag, pneumococcal antigens and mycoplasma IgM pending. MRSA nasal swab was negative. BCx no growth. Patient has chronic pancytopenia, presumably related to tacrolimus. WBC was 1600 (ANC 960). Influenza also contributing to the lower WBC. WBC improved on repeat testing. Plt count low on admission at 53K. Plt count lower then usual but stable in the 40-50K. Hgb stable in the 10-11 range. Patient immunosuppressed on Tacrolimus for her liver transplant. She was accepted by the transplant service at [facility] but no bed was available. She feels much better. She is requesting discharge. She overall did well and was able to be discharged home on 05/21/24. She is (mostly once at night) her 19 month old but trying to wean off. Safe to continue with current medications if she desires and patient was made aware. Status at Discharge Cognitive/behavioral status at discharge: stable Time Spent with Patient Time attestation: Total time spent providing and/or coordinating discharge services: 34 minutes Time spent: Greater than 30 minutes Exam Narrative: AF 97.8 121/64 74 16 98% ra Gen - NARD Chest - faint left base crackles o/w clear. CV - RRR S1/S2 Abd - Soft, no abd pain including no RUQ pain. Ext - No pedal edema Psych - Nml mood and affect Skin - Warm and dry DS: Data Data Completed and Pending Labs on day of discharge: Labs from last 24 hours 05/21/24 04:31 WBC 2.4 L RBC 3.22 L Hgb 10.3 L Hct 30.5 L MCV 94.7 MCH 32.0 MCHC 33.8 RDW 13.1 Plt Count 46 L MPV 11.2 H Immature Gran % (Auto) 0.4 Neut % (Auto) 63.2 Lymph % (Auto) 22.9 [place] % (Auto) 11.0 H Eos % (Auto) 2.1 Baso % (Auto) 0.4 Lymph # (Auto) 0.54 L [place] # (Auto) 0.3 Eos # (Auto) 0.1 Baso # (Auto) 0.0 Abs Immat Gran (auto) 0.01 Absolute Neuts (auto) 1.5 Absolute Nucleated RBC 0.000 Nucleated RBC % 0.0 % Immature Plt Fraction 4.7 Sodium 139 Potassium 4.1 Chloride 111 H Carbon Dioxide 22 Anion Gap 6 BUN 15 Creatinine 0.63 L Estim Creat Clear Calc 109 Estimated GFR > 60 Glucose 97 Calcium 7.6 L Magnesium 1.6 Total Bilirubin 0.6 AST 40 H ALT 46 H Alkaline Phosphatase 126 Total Protein 6.0 L Albumin 2.7 L Vancomycin Trough 13.7 Preliminary micro results at discharge 05/19/24 15:03 Blood Culture - Preliminary Blood 05/19/24 15:02 Blood Culture - Preliminary Blood Discharge Plan Discharge Attending physician on discharge: Roscoe Bonner Discharging Clinician: Roscoe Bonner Anticipated Discharge Date/Time: 05/21/24 13:04 Patient Disposition: Home, Self-Care Activity: as tolerated Diet: regular Discharge Instructions: Please avoid large gathering, wear face coverings in public and practice social distance. Home with 2 antibiotics called Azithromycin and Cefdinir. Please start these medications tomorrow (05/22/24) and complete your antibiotic course even if you are starting to feel well. Contact your doctor or call 911 and come to the Emergency Room if you have fevers or other worrisome symptoms. Follow-up with your primary care provider in 1-2 weeks. Please call for appointment. Thank you for using [facility] for your health care needs. Patient Instructions: Antibiotic Form Patient Language: Panamanian Stand Alone Forms: General Discharge Information Follow-up/Referrals: Frantz,Juan Rossi MD [Primary Care Provider] - Call for Appointment Discharge Medications: New azithromycin 250 mg tablet 250 mg PO DAILY 5 Days Qty: 2 0RF cefdinir 300 mg capsule 300 mg PO Q12H Qty: 8 0RF Continued tacrolimus 1 mg capsule 3 mg PO .COMPLEX Rx Instructions: 3 mg orally in the AM and 4mg at night oseltamivir [Tamiflu] 75 mg Capsule 75 mg PO Q12HR Qty: 7 0RF ferrous sulfate 325 mg (65 mg iron) Tablet 324 mg PO BIDWM Qty: 60 0RF Date of admission: 05/20/24 13:44 Primary Care Provider: Frantz,Juan Rossi Admitting Provider: Junior Garcia Attending physician on admission: Junior Garcia Condition: Stable Hospitalist MIPS Heart Failure (Exclusion) Patient has history of Heart Transplant or Left Ventricular Assistive Device?: No IF YES, STOP HERE Heart Failure (Qualifier) Patient has current or prior documentation of LVEF less than or equal to 40%, or mod/servere depressed LVSF?: No IF NO, STOP HERE
[2024-05-24 22:53] LABS: Pneumococcal Antigen Urine NOT DETECTED
--- NOTE | 2024-05-25 09:29 | PC.NURSE ---
Blood cx are negative. Dr. Ha house.
[2024-05-25 17:48] LABS: Mycoplasma IgM Antibody Titer 858 U/mL
[2024-05-25 23:47] LABS: Legionella pneumophila Ag Ur NOT DETECTED
== END 2024-05-21 14:20 | disposition home or self-care (01) | DRG 194 ==
LOC: ANHED 15:40 → ANH3MED 17:19
PROVIDERS: Physician Assistant; Admitting Provider General Practice; Emergency Provider Emergency Medicine; PCP Internal Medicine Gastroenterology; Visit Provider Internal Medicine
DX: J10.00 Influenza due to other identified influenza virus with unspecified type of pneumonia (principal); D61.818 Other pancytopenia; D84.821 Immunodeficiency due to drugs; Z94.4 Liver transplant status; J15.9 Unspecified bacterial pneumonia; Z85.05 Personal history of malignant neoplasm of liver; Z79.621 Long term (current) use of calcineurin inhibitor
CPT/HCPCS: 36415; 71045; 80053; 80202; 81001; 83690; 83735; 85025; 85055; 85610; 85730; 86738; 87040; 87070; 87205; 87449; 87641; 87899; 93005; 96365; 96366; 96367; 96375; 99285; A9270; G0378; J0456; J0696; J1885; J3370; J3475; J7030

== ENCOUNTER 2025-01-06 10:39 | Emergency (ER) | payer SELFPAY ==
--- OUTSIDE RECORDS SUMMARY | 2010-12-22 19:00 | XMS_ITS | Continuity of Care Document ---
Author Organization [facility] Address [id number] [place] [phone] Phone Care Team Providers Care Culture Room Worker Name Role Phone Conversion MD, Doctor Unavailable Unavailabl e Allergies, Adverse Reactions, Alerts Substance Reaction Status Criticality No Known Drug Allergies Other Active No I nformation Medications Medication Instructions Dosage Effective Dates (start - stop) Status Comments AMOXICILLIN 250MG TABS 1.5 BID - No Longer Active AMOXICILLIN 250 MG TAB CHEW 1.5 BID - No Longer Active ZITHROMAX 200MG/5ML ML 5 QD - No Longer Active AMOXICILLIN 250 MG/5 ML SUSP 10 BID - No Longer Active AMOXICILLIN 250MG/5ML ML 10 BID - No Longer Active Advance Directives Directive Yes / No Effective Date File Name No Information Encounters Encounter Description Practice Location Reason(s) For Visit Diagnoses Date Provider Providers [facility]ied on [facility], [address], [place], [place], [id number], tel:[phone] Conversion Department No Information 1 Conversion Doctor. [address] [place] [address], [address], . [facility], [address], [place], [place], [id number], tel:[phone] [facility] 2-200 6 Reggie Nicola. [address] [facility], [facility] [address] [place] [address], [id number], [place]. tel:[phone] [employer], [address], [place], [place], [id number], [place] tel:[phone] [facility] No Information 5-200 6 Reggie Petersen. [address] [facility], [facility] [address], [place], [place], [id number], . tel:[phone] Family History Family Member Type Diagnosis Age At Onset No Information Immunizations Vaccine Date Status Comments 75625 - Varicella administered Source: [place] Unspecified 91654 - Influenza administered Source: [place] Unspecified 14405 - Hepatitis_A administered Source: Source Unspecified Payers Payer name Insurance type Covered alliance party ID Authoriza tion(s) No Information Social History Type Description Quantity Date Captured Comments Sex Female Smoking Status No Information Chief Complaint And Reason For Visit No Information Reason For Referral Reason For Referral No Information History Of Present Illness Encounter Date Complaint History Of Prese nt Illness No Information Functional Status Date Functional Assessmen t No Information Medications Administered Medication Instructions Dosage Effective Dates (start - stop) Status Comments AMOXICILLIN 250MG TABS 1.5 BID - No Longer Active AMOXICILLIN 250MG/5ML ML 10 BID - No Longer Active Instructions Date Instruction Additional Infor mation No Information Assessments Type Assessment Date No Information Patient Care Teams Name Effective Dates (start - stop) Status Members No Information
--- OUTSIDE RECORDS SUMMARY | 2010-12-22 19:00 | XMS_ITS | Continuity of Care Document ---
Author Organization [facility] Address [id number] [place] [phone] Phone Care Team Providers Care Wic Site Coordinator Name Role Phone Conversion MD, Doctor Unavailable [...] Diagnoses Date Provider Providers Copied on [facility], [address], [place], [place], [id number], tel:[phone] Conversion Department No Information 1 Conversion Doctor. [address] [place] [address], [address], . [facility], [address], [place], [place], [address], tel:[phone] [facility] M[facility]N 2-200 6 Reggie Nicola. [address] [facility], [facility] [address] [place] [address], [id number], [place]. tel:[phone] [facility], [address], [place], [place], [id number], [place] tel:[phone] [facility] No Information 5-200 6 Reggie Petersen. [address] [facility], [facility] [address], [place], [place], [id number], . tel:[phone] Family History Family Member Type Diagnosis Age At Onset No Information Immunizations Vaccine Date Status Comments 94863 - Varicella administered Source: [place] Unspecified 95948 - Influenza administered Source: [place] ur[place] Unspecified 69858 - Hepatitis_A administered Source: Source Unspecified Payers Payer name Insurance type Covered libertarian ID Authoriza tion(s) No Information Social History [...]
--- OUTSIDE RECORDS SUMMARY | 2025-01-06 10:41 | XMS_ITS | Encounter Summary ---
Author Organization [facility] [employer] Address [address] [place] [address] Care Team Providers Care Epic Specialist Name Role Phone Josiah Palacios MD Primary Care Provider [phone] Mariama Rossi APRN-SEWING ROOM SUPERVISOR Unavailable Ave Cooley RN Unavailable Unavailab le ForistalStephanie RN Unavailable Unav ailable AnglimRei PharmD Unavailable Unavai Tesfaye Rivera MD Primary Care Provider [phone] Frida De Los Santos MD Unavailable Mariama Rudd VAN HELPER Unavailable [phone] Josiah Palacios MD Primary Care Provider [phone] Marcel Ram MD Unavailable [phone] Reason for Visit * Reason Onset Date Comments Question 08/29/2015 Encounter Details Date Type Department Care Team (Late st Contact Info) Description 08/29/[address] [facility] Pediatric[facility] - [address] [address] Biju Walker MD [facility] [place] [address] Question Social History Tobacco Use Types Packs/Day Years Used Date Smoking Tobacco: Never Smokeless Tobacco: Never Alcohol Use Standard Drinks/Week Comments No 0 (1 standard drink = 0.6 oz pur e alcohol) Comments No Sex and Gender Information Value Date Recorded Sex Assigned at Not on file Legal Sex Female 2:09 PM RN BONE MARROW TRANSPLANT Gender Identity Not on file Sexual Orientation Not on file documented as of this encounter Miscellaneous Notes * Telephone Encounter - Carolyn Helms - 08/29/2015 11:27 AM CDT [facility] requesting a script for Prograf 0.5 mg. Please fax to [phone] or call in [phone]. documented in this encounter Plan of Treatment Not on file documented as of this encounter Visit Diagnoses Not on filedocumented in this encounter Additional Health Concerns Infection Onset Date Last Indicated Resolved Time COVID-19 Under Investigation 02/16/2020 02/16/2020 02/16/2020 3:58 AM CDT COVID-19 Confirmed 02/16/2020 02/16/2020 0 4:33 AM RN BONE MARROW TRANSPLANT documented as of this encounter Care Teams Epic Specialist Relationship Specialty Start Date End Date Josiah Palacios MD PCP - General Family Medicine 12/30/11 12/06/21 Tesfaye Baca MD [address] [place] [address] PCP - General 12/07/21 01/18/23 Frida De Los Santos MD [address] [facility] [address] [place] [address] PCP - Attributed-[employer] 07/18/22 3 Josiah Palacios MD [address] [place] [address] PCP - General Family Medicine 01/19/23 Marcel Ram MD [address] [address] PCP - Attributed-[employer] 01/17/23 4 Mariama Rossi, OIL PIPELINE OPERATOR-SEWING ROOM SUPERVISOR [address] [place] [address] Nurse Practitioner Nurse Practitioner 09/30/16 12/15/16 Ave Cooley, RN Registered Nurse 09/30/16 12/15/16 Stephanie Lozano, RN Registered Nurse 12/16/16 Rei Ann, PharmD Pharmacist 01/12/17 Mariama Rudd, YANG Outpatient Representative Government Relations Care Management 12/08/22 12/10/22 documented as of this encounter
--- OUTSIDE RECORDS SUMMARY | 2025-01-06 10:41 | XMS_ITS | Encounter Summary ---
Author Organization [facility] Address [address] [facility] [place] [address] Care Team Providers Care Animal Nursery Worker Name Role Phone Josiah Palacios MD Primary Care Provider [phone] Stephanie Lozano RN Unavailable Unav ailable Rei Ann PharmD Unavailable Unavai Tesfaye Rivera MD Primary Care Provider [phone] Frida De Los Santos MD Unavailable Mariama Rudd SKIP LOCATOR Unavailable [phone] Josiah Palacios MD Primary Care Provider [phone] Marcel Ram MD Unavailable [phone] Encounter Details Date Type Department Care Team (Late st Contact Info) Description 07/21/2018 Telephone [facility] - [address] [address] Biju Walker MD [address] [place] [id number] Social History Tobacco Use Types Packs/Day Years Used Date Smoking Tobacco: Never Smokeless Tobacco: Never Alcohol Use Standard Drinks/Week Comments No 0 (1 standard drink = 0.6 oz pur e alcohol) Comments No Sex and Gender Information Value Date Recorded Sex Assigned at Not on file Legal Sex Female 2:09 PM MARKET ANALYSIS DIRECTOR Gender Identity Not on file Sexual Orientation Not on file documented as of this encounter Functional Status * Is person deaf or have serious hearing difficulty? Answer Date of Assessment Author No 07/30/2017 1:54 PM CDT Sonja Grider RN * Is person blind or have serious difficulty seeing? Answer Date of Assessment Author No 07/30/2017 1:54 PM CDT Sonja Grider RN * Does person have serious difficulty walking/climbing stairs? Answer Date of Assessment Author No 07/30/2017 1:54 PM CDT Sonja Grider RN * Does person have difficulty dressing/bathing? Answer Date of Assessment Author No 07/30/2017 1:54 PM CDT Sonja Grider RN * Does person have difficulty doing errands alone? Answer Date of Assessment Author No 07/30/2017 1:54 PM CDT Sonja Grider RN documented as of this encounter Mental Status * Does person have difficulty concentrating/remembering/making decisions? Answer Entry Date Author No 07/30/2017 1:54 PM CDT Sonja Grider RN documented in this encounter Miscellaneous Notes * Telephone Encounter [...] COVID-19 Confirmed 02/16/2020 02/16/2020 0 4:33 AM MARKET ANALYSIS DIRECTOR documented as of this encounter Care Teams Animal Nursery Worker Relationship Specialty Start Date End Date Josiah Palacios MD PCP - General Family Medicine 12/30/11 12/06/21 Tesfaye Baca MD [address] [place] [address] PCP - General 12/07/21 01/18/23 Frida De Los Santos MD [address] [facility] [address] [place] [address] PCP - Attributed-[employer] 07/18/22 3 Josiah Palacios MD [address] [place] [address] PCP - General Family Medicine 01/19/23 Marcel Ram MD [address] [facility] [address] [place] [address] PCP - Attributed-[employer] 01/17/23 4 Stephanie Lozano, MRAINA Registered Nurse 12/16/16 Rei Ann, PharmD Pharmacist 01/12/17 Mariama Rudd MSW Outpatient Oyster Bed Worker Care Management 12/08/2211/18 documented as of this encounter
--- OUTSIDE RECORDS SUMMARY | 2025-01-06 10:41 | XMS_ITS ---
Author Organization [facility] Health Address [address] [address] Care Team Providers Care Refrigeration Insulator Name Role Phone Stephanie Lozano RN Unavailable Unaadi ailable Rei Ann PharmD Unavailable Unavai Josiah Russell MD Primary Care Provider [phone] Active Problems * This document contains information received from the source organization and may not represent a complete record from that organization. Patient Care Coordination No te Formatting of this note migh t be different from the original. Marquetry Worker Stephanie Lozano [phone] Tacrolimus Target Level 6-8 Problem Noted Date Diagnosed Date Pneumonia due to infectious organism, unspecified laterality, unspecified part of lung 05/19/2024 Routine follow-up 01/19/2023 History of gestational hypertension [...] vaginal yeast infection Neuro/psych: Advanced from needing Manning q6h for pain to using Tylenol prn Zoloft continued given h/o depression For insomnia, was given Benadryl qhs and Melatonin prn Discharged home. Instructed to have tacrolimus levels drawn in 2 days and follow up at transplant clinic as instructed. Please see med rec's for list of meds on discharge. Current Treatment and Therapy Plans No current plan information found. Other Current Plans IRON SUCROSE (VENOFER) THERAPY PLAN* Plan Start Date:11/13/2022 Plan Provider:Kecia Orosco APRN-TOOLROOM MACHINIST Linked Problems History of anemia Treatment Medications No medications scheduled. Past Treatment and Therapy Plans No past plan information found. Lifetime Dose Tracking * Chemical Lifetime Dose [...] monitors - On aspirin 91mg at bedtime Resp - On RA - Continuous pulse ox - End tidal CO2 monitoring while on BARKER OPERATOR Neuro - Fentanyl BARKER OPERATOR - Basal 10mcg/hr, BARKER OPERATOR dose 15mcg - Scheduled Toradol 30mg q6h x24hrs - Melatonin nightly Endo - Endo consulted - 25mg/m2 Q6H stress dose steroids ID - ID consulted - Continue zosyn and clindamycin - CMV, EBV, RPP, HHV-6 PCRs pending - Obtain CXR, blood culture, urine culture - Continue home bactrim and valcyte ppx - Blood and urine culture pending GI - RUQ U/S today - Resume regular diet after RUQ U/S - Prilosec daily - Tacro 3mg BID (goal 8-10) - Tacro trough in am at 0800 07/28, pending - Colace and miralax daily for bowel regimen while on BARKER OPERATOR - Continue prednisone FEN: - Continue IV [...] re-admitted for syncope and concern for sepsis. Plan: - Continue prophylaxis with Septra and [...] re-admitted for syncope and concern for sepsis. Plan: - Continue prophylaxis with Septra and [...] every other day Assessment & Plan (07/28/2017 11:58 AM CDT): [...] - End tidal CO2 monitoring while on BARKER OPERATOR Neuro: significant diffuse myalgias throughout that are improved on BARKER OPERATOR and Toradol - Fentanyl BARKER OPERATOR - Basal 10mcg/hr, BARKER OPERATOR dose 15mcg - Scheduled Toradol 30mg q6h [...] miralax daily for bowel regimen while on BARKER OPERATOR - Continue prednisone Assessment & Plan (07/28/2017 [...] - End tidal CO2 monitoring while on BARKER OPERATOR Neuro: significant diffuse myalgias throughout, received fentanyl in ED. - Fentanyl BARKER OPERATOR - 1x dose of Toradol - Melatonin [...] miralax daily for bowel regimen while on BARKER OPERATOR - Continue prednisone Assessment & Plan (07/27/2017 [...] discharged on Prednisone 40mg with taper schedule. 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 Saw Medical Data Analyst in November--not recommended to have another follow up until . Never had repeat liver ultrasound performed in October. Itching complaint could be a side effect of Tacrolimus which is now being used TID. Also with bleeding gums. [facility] Recommendations: 1. checking coags & bile acids 2. Should have liver ultrasound performed and report forwarded to Medical Data Analyst. 3. Previously counseled that it was acceptable to breastfeed on Tacrolimus Abdominal pain, right upper quadrant 03/21/2017 07/16/2017 Overview (03/22/2017): Margoth is an 17 yo F with history of HCC s/p liver transplant, here for persistently elevated transaminases and elevated T/D bilirubin and acute abd pain. Differential include obstructive process, rejection, infection. Medication side effect less likely given previous admissions. 1.CBC, CMP, DBili, GGT, PT/INR- not marked increased 2. Follow up with Dr. Walker on Wednesday with follow up labs as above Total bilirubin, elevated 03/21/2017 Assessment & Plan (03/21/2017 7:22 PM SOFTWARE ANALYST): Margoth is an 17 yo F with history of HCC s/p liver transplant, here for persistently elevated transaminases and elevated T/D bilirubin. Differential include obstructive process, rejection, infection. Medication side effect less likely given previous admissions. 1. Admit to GI, Dr. De Anda 2. Labs in AM-CBC, CMP, DBili, GGT, PT/INR 3. Strict I&Os 4. NPO at midnight 5. Will d/w transplant team Elevated liver enzymes and D irect Hyperbilirubinemia 03/15/2017 09/17/2019 Assessment & Plan (03/20/2017 10:55 AM SOFTWARE ANALYST): Assessment: Margoth is an 17-year-old female with [...] with outpatient GI on 03/26 - continue STITCHER AROUND medications ASA 81 mg PO daily Cholecalciferol 2000 units PO qd Ferrous sulfate 325 mg PO BID Hydroxyzine 25 mg PO qhs Magnesium oxide 400 mg qd Mycophenolate 500 mg PO BID Assessment & Plan (03/19/2017 11:23 AM SOFTWARE ANALYST): Assessment: Margoth is an 17-year-old female with [...] esomeprazole to 40 mg daily - continue STITCHER AROUND medications ASA 81 mg PO daily Cholecalciferol 2000 units PO qd Ferrous sulfate 325 mg PO BID Hydroxyzine 25 mg PO qhs Magnesium oxide 400 mg qd Tacrolimus 1.5 mg qAM, 2 mg qhs Mycophenolate 500 mg PO BID Assessment & Plan (03/18/2017 2:09 PM SOFTWARE ANALYST): Assessment: Margoth is an 17-year-old female with [...] - daily liver function panels - continue STITCHER AROUND medications ASA 81 mg PO daily Cholecalciferol 2000 units PO qd Ferrous sulfate 325 mg PO BID Hydroxyzine 25 mg PO qhs Magnesium oxide 400 mg qd Tacrolimus 1.5 mg qAM, 2 mg qhs Mycophenolate 500 mg PO BID Assessment & Plan (03/18/2017 1:46 PM SOFTWARE ANALYST): Assessment: 17 y/o female with history of [...] QPM Assessment & Plan (03/17/2017 2:01 PM SOFTWARE ANALYST): Assessment: 17 y/o female with history of [...] QPM Assessment & Plan (03/17/2017 1:23 PM SOFTWARE ANALYST): Assessment: Margoth is an 17-year-old female with [...] with the previous steroid treatment - continue STITCHER AROUND medications ASA 81 mg PO daily Cholecalciferol 2000 units PO qd Ferrous sulfate 325 mg PO BID Hydroxyzine 25 mg PO qhs Magnesium oxide 400 mg qd Tacrolimus 1.5 mg qAM, 2 mg qhs Mycophenolate 500 mg PO BID Assessment & Plan (03/16/2017 2:07 PM SOFTWARE ANALYST): Assessment: 17 y/o female with history of [...] QPM Assessment & Plan (03/16/2017 10:50 AM SOFTWARE ANALYST): Assessment: Margoth is an 17-year-old female with [...] completed Assessment & Plan (03/15/2017 3:28 PM SOFTWARE ANALYST): Assessment: 17 y/o female with history of [...] 03/08/201701/17 Assessment & Plan (04/21/2017 3:25 PM SOFTWARE ANALYST): Chronic daily headaches (mixed pattern of migraines [...] concerns Assessment & Plan (03/09/2017 11:32 AM SOFTWARE ANALYST): Assessment: Has not had a headache over [...] 03/15 Assessment & Plan (03/08/2017 10:50 AM SOFTWARE ANALYST): Assessment: Margoth has a history of migraine [...] will need to effectively be ruled out. Plan: - Neurology consulted - Ordered MRI brain and MRV to assess for Dural Sinus Thrombosis. - Will continue with iburofen and rizatriptan for FARAH pain Assessment & Plan (03/08/2017 1:03 AM SOFTWARE ANALYST): Assessment: Margoth has a history of migraine [...] 01/18/2020 Assessment & Plan (03/09/2017 11:36 AM SOFTWARE ANALYST): Assessment: The patient's elevated liver enzymes are [...] the hydroxyzine for pruritis 2. Continue with STITCHER AROUND anti-rejection medications, tacrolimus, mycophenolate, ferrous sulfate, ASA, magnesium oxide, and vitamin D 3. Follow-up liver panel on Wednesday, 03/13 at [facility] Assessment & Plan (03/08/2017 10:46 AM SOFTWARE ANALYST): Assessment: Margoth Aguila is a 16 y.o. [...] etiologies, and TCA usage will be discontinued. Plan: - mIVF with D5 1/2NS 20 CHIN - EBV/ CMV titers pending - PT/INR normal, no need for Vit k at this time - Continue home anti-rejection medications, tacrolimus, cellcept, FE, MgOx, Vit B, Vit D, ASA Assessment & Plan (03/08/2017 1:00 AM SOFTWARE ANALYST): Assessment: Margoth Aguila is a 16 y.o. [...] 01/18/2020 Assessment & Plan (05/20/2017 9:54 PM SOFTWARE ANALYST): Assessment: Margoth is an 17 year old [...] immediately started on high dose IV solumedrol. Plan: - Wean to IV solumedrol 30 mg q6h - Regular diet - VS q8h - Daily HFP, GGT, PT/INR - Psychology consulted, note to follow - Continue home medications -ASA 81mg PO daily -Cholecalciferol 2000 Units PO Qday -Ferrous Sulfate 325mg PO BID -Mag Ox 400mg BID -Cellcept 500mg PO BID -Prograf 2mg BID Assessment & Plan (05/20/2017 2:25 PM SOFTWARE ANALYST): Assessment: Margoth Aguila is a 17 yo [...] meds Assessment & Plan (05/19/2017 1:52 PM SOFTWARE ANALYST): Assessment: Margoth is an 17 year old [...] immediately started on high dose IV solumedrol. Plan: - Wean to IV solumedrol 50 [...] BID Assessment & Plan (05/18/2017 11:19 AM SOFTWARE ANALYST): Assessment: Margoth is an 17 year old [...] immediately started on high dose IV solumedrol. Plan: - Continue IV solumedrol 250 mg [...] BID Assessment & Plan (05/17/2017 1:44 PM SOFTWARE ANALYST): Assessment: Margoth is an 17 year old [...] infectious etiology considering past history of cholangitis. Plan: - Admit to Gastroenterology, Dr. Keith [...] each time. Last dose to be on 4/3 - Cellcept 1 g BID - Tacrolimus [...] diet Assessment & Plan (04/09/2013 6:56 PM SOFTWARE ANALYST): Assessment: Margoth Aguila is a 13 yo [...] weeks Assessment & Plan (04/08/2013 10:01 PM SOFTWARE ANALYST): Assessment: Margoth Aguila is a 13 yo [...] weeks Assessment & Plan (03/19/2013 12:21 PM SOFTWARE ANALYST): Assessment: Margoth is a 13yo with h/o [...] daily Assessment & Plan (03/19/2013 11:08 AM SOFTWARE ANALYST): Assessment: Margoth is a 13yo with h/o [...] daily Assessment & Plan (03/18/2013 10:34 AM SOFTWARE ANALYST): Assessment: Margoth is a 13 yo s/p [...] to hold PRBC and FFP for procedure -sales service coordinator Gil are aware and will coordinate with [place] -IP consult to pastoral care -IP consult to social science instructor -sales service coordinator Cassia and Anthony are aware and will coordinate with [place] -IP consult to pastoral care -IP consult to social science instructor Footprints Patient 02/11/2012 0 Overview (02/11/2012): Simona Mcgee MA,CCLS is [facility] Fire Operations Forester [phone]. HCC (hepatocellular carcinoma) 01/29/2012 07/16/2017 Overview (02/12/2012): [...] S/p chemo-embolization on 01/29/12 for HCC. Dilaudid BARKER OPERATOR (due to extreme pruritis with morphine) not [...]
--- OUTSIDE RECORDS SUMMARY | 2025-01-06 10:41 | XMS_ITS | Encounter Summary ---
Author Organization [facility] Health Address [address] [place] [place] [address] Care Team Providers Care Inside Sales Representative Name Role Phone Josiah Palacios MD Primary Care Provider [phone] Stephanie Lozano RN Unavailable Unav ailable Rei Ann PharmD Unavailable Unavai Tesfaye Rivera MD Primary Care Provider [phone] Frida De Los Santos MD Unavailable Mariama Rudd RETORT OR CONDENSER PRESS OPERATOR Unavailable [phone] Josiah Palacios MD Primary Care Provider [phone] Marcel Ram MD Unavailable [phone] Encounter Details Date Type Department Care Team (Late st Contact Info) Description 07/26/2017 Lab Requisition [facility] [address] [place] [address] Luz Cardona MD [address] [place] [address] Social History Tobacco Use Types Packs/Day Years Used Date Smoking Tobacco: Never Smokeless Tobacco: Never Alcohol Use Standard Drinks/Week Comments No 0 (1 standard drink = 0.6 oz pur e alcohol) Comments No Sex and Gender Information Value Date Recorded Sex Assigned at Not on file Legal Sex Female 2:09 PM CHIEF DATA OFFICER Gender Identity Not on file Sexual Orientation Not on file documented as of this encounter Functional Status * Is person deaf or have serious hearing difficulty? Answer Date of Assessment Author No 07/24/2017 2:32 PM CDT Salome Damian RN * Is person blind or have serious difficulty seeing? Answer Date of Assessment Author No 07/24/2017 2:32 PM CDT Salome Damian RN * Does person have serious difficulty walking/climbing stairs? Answer Date of Assessment Author No 07/24/2017 2:32 PM CDT Salome Damian RN * Does person have difficulty dressing/bathing? Answer Date of Assessment Author No 07/24/2017 2:32 PM CDT Salome Damian RN * Does person have difficulty doing errands alone? Answer Date of Assessment Author No 07/24/2017 2:32 PM CDT Salome Damian RN documented as of this encounter Mental Status * Does person have difficulty concentrating/remembering/making decisions? Answer Entry Date Author No 07/24/2017 2:32 PM CDT Salome Damian RN documented in this encounter Plan of Treatment Not on file documented as of this encounter Visit Diagnoses Not on filedocumented in this encounter Additional Health Concerns Infection Onset Date Last Indicated Resolved Time COVID-19 Under Investigation 02/16/2020 02/16/2020 02/16/2020 3:58 AM CDT COVID-19 Confirmed 02/16/2020 02/16/2020 0 4:33 AM CHIEF DATA OFFICER documented as of this encounter Care Teams Inside Sales Representative Relationship Specialty Start Date End Date Josiah Palacios MD PCP - General Family Medicine 12/30/11 12/06/21 Tesfaye Baca MD [address] [place] [address] PCP - General 12/07/21 01/18/23 Frida De Los Santos MD [address] [address] PCP - Attributed-[employer] 07/18/22 3 Josiah Palacios MD [address] [place] [address] PCP - General Family Medicine 01/19/23 Marcel Ram MD [address] [address] PCP - Attributed-[employer] 01/17/23 4 Stephanie Lozano, RN Registered Nurse 12/16/16 Rei Ann, PharmD Pharmacist 01/12/17 Mariama Rudd, YANG Outpatient Page Technician Care Management 12/08/2211/18 documented as of this encounter
--- OUTSIDE RECORDS SUMMARY | 2025-01-06 10:41 | XMS_ITS ---
Author Organization [facility] Address [address] [place] [address] Care Team Providers Care Granite Polisher Apprentice Name Role Phone Stephanie Lozano RN Unavailable Unav ailRei Richard PharmD Unavailable Unavai Josiah Russell MD Primary Care Provider [phone] Transplant Episode Liver Recipient [facility] ([place], [place]) - [facility] Transplanted on 08/26/2012 Marked as Active Follow-up on 08/26/2012 Liver CoordinatorStephanie Lozano RN Phone: N/A Fax: N/A Email: N/A Rejection History Noted Survival Rejection Treatment Biopsy Resolved 07/27/2017 4 years 11 months Liver transpla nt rejection (HCC) 08/28/2019 07/16/2017 4 years 10 months Liver transpla nt rejection (HCC) 02/16/2020 Infection History Noted Survival Infection Treatment Organism Resolved 05/19/2024 11 years 8 months Pneumonia due to infectious organism, unspecified laterality, unspecified part of lung 01/26/2022 9 years 5 months Influenza Care Team Name Role Phone Fax Email Stephanie Lozano RN Liver Coordinator N/A N /A N/A Megan Kline MD Surgeon [phone] N/A Events Post-Transplant Pre-Transplant Admitted: 08/25/2012 Center waitlisted: 2 Transplanted: 08/26/2012 Discharged: 09/02/2012
--- OUTSIDE RECORDS SUMMARY | 2025-01-06 10:41 | XMS_ITS | Encounter Summary ---
Author Organization [facility] Address [address] [place] [address] Care Team Providers Care Ship'S Cook Name Role Phone Josiah Palacios MD Primary Care Provider [phone] Mariama Rossi APRNSPLUNK ARCHITECT Unavailable Ave Cooley RN Unavailable Unavailab le ForistalStephanie RN Unavailable Unav ailable AnglimRei PharmD Unavailable Unavai Tesfaye Rivera MD Primary Care Provider [phone] Frida De Los Santos MD Unavailable Mariama Rudd LEGAL SERVICES MANAGER Unavailable [phone] Josiah Palacios MD Primary Care Provider [phone] Marcel Ram MD Unavailable [phone] Reason for Visit * Reason Onset Date Comments MEDICATION REFILL 01/16/2014 Encounter Details Date Type Department Care Team (Late st Contact Info) Description 01/16/2014 Telephone [facility] - [address] [address] Biju Walker MD [facility] [place] [address] MEDICATION REFILL Social History Tobacco Use Types Packs/Day Years Used Date Smoking Tobacco: Never Smokeless Tobacco: Never Alcohol Use Standard Drinks/Week Comments No 0 (1 standard drink = 0.6 oz pur e alcohol) Comments No Sex and Gender Information Value Date Recorded Sex Assigned at Not on file Legal Sex Female 2:09 PM COMMANDER INTERNAL AFFAIRS Gender Identity Not on file Sexual Orientation Not on file documented as of this encounter Plan of Treatment Not on file documented as of this encounter Visit Diagnoses Not on filedocumented in this encounter Additional Health Concerns Infection Onset Date Last Indicated Resolved Time COVID-19 Under Investigation 02/16/2020 02/16/2020 02/16/2020 3:58 AM CDT COVID-19 Confirmed 02/16/2020 02/16/2020 0 4:33 AM COMMANDER INTERNAL AFFAIRS documented as of this encounter Care Teams Ship'S Cook Relationship Specialty Start Date End Date Josiah Palacios MD PCP - General Family Medicine 12/30/11 12/06/21 Tesfaye Baca MD [address] [place] [address] PCP - General 12/07/21 01/18/23 Frida De Los Santos MD [address] [place] [address] [address] [place] [address] PCP - Attributed-[employer] 07/18/22 3 Josiah Palacios MD [address] [place] [address] PCP - General Family Medicine 01/19/23 Marcel Ram MD [facility] [address] [address] PCP - Attributed-[employer] 01/17/23 4 Mariama Rossi, METROLOGY MANAGER-SPLUNK ARCHITECT [address] [place] [address] Nurse Practitioner Nurse Practitioner 09/30/16 12/15/16 Ave Cooley, RN Registered Nurse 09/30/16 12/15/16 Stephanie Lozano, RN Registered Nurse 12/16/16 Rei Ann, PharmD Pharmacist 01/12/17 Mariama Rudd, LEGAL SERVICES MANAGER Outpatient Arabic Translator Care Management 12/08/22 12/10/22 documented as of this encounter
--- OUTSIDE RECORDS SUMMARY | 2025-01-06 10:41 | XMS_ITS | Clinical Summary ---
Author Organization [facility] Address [address] [facility] [place] [address] Care Team Providers Care Salesperson Books Name Role Phone Stephanie Lozano RN Unavailable Rei Smith PharmD Unavailable Unavai Josiah Russell MD Primary Care Provider [phone] Source Comments [facility],non-owned Affiliates and Associated Physician Practices is amultiple site organization consisting of ambulatory clinics and hospital sitesin [place], [place] and [place]. This disclosure is being madepursuant to the Care Everywhere program and may not contain all information available regarding this patient. Last updated 18.[facility] Allergies Active Allergy Reactions Criticality Noted Date Comments Hydromorphone Psychiatric Medium 02/08/2012 Terror halucinations Morphine Itching Medium 01/19/2012 Medications * This document contains information received from the source organization and may not represent a complete record from that organization. * Be aware that medications may not be up to date on this document. Alwaysverify current medications with the patient. tacrolimus (PROGRAF) 1 MG capsule Take 3 capsules by mouth 2 times daily for 90 days 180 capsule 2 08/22/19 20 Active Additional Information Patient taking differently:3 mg Oral 2 TIMES DAILY,Indications: Liver Transplant Status, Reported on 09/14/2019 Calcium Carb-Cholecalc iferol (CALCIUM 1000 + D PO)Indications :High-risk in second trimester (HCC) Take by mouth once daily Active Ferrous Sulfate Dried (High Potency Iron) 65 MG TABS Take 65 mg by mouth once daily Active ursodiol (Jv Forte) 500 MG tabletIndicati ons:Cholestati c Pruritus Take 1 (one) tablet by mouth 3 times daily with meals Reasons: Cholestatic Pruritus 90 tablet 1 11/27/19 Active ibuprofen (Motrin) 600 MG tablet Take 1 (one) tablet by mouth every 6 hours as needed for Pain 50 tablet 1 12/08/19 23 Active plus iron (Natatab) 29-1 MG tablet Take 1 (one) tablet by mouth once daily 100 tablet 1 12/08/19 23 Active magnesium oxide (Mag-Ox) 400 MG tablet Take 1 (one) tablet by mouth once daily Active thiamine (Vitamin B-1) 100 MG tablet Take 1 (one) tablet by mouth once daily Active tacrolimus (Prograf) 1 MG capsule Take 3 (three) capsules by mouth 2 times daily 180 capsule 2 06/01/19 25 026 Active Wegovy 1.7 MG/0.75ML penIndications :Morbid obesity (HCC) INJECT 1.7MG SUBCUTANEOUSLY ONCE WEEKLY 4 mL 07/31/19 25 Active tacrolimus (Prograf) 1 MG capsuleIndicat ions:Liver Transplant Status Take 4 (four) capsules by mouth every morning AND 3 (three) capsules every evening. Reasons: Liver Transplant Recipient. 630 capsule 12/09/19 25 Active tacrolimus (Prograf) 1 MG capsule Take 4 (four) capsules by mouth every morning AND 3 (three) capsules every evening. 210 capsule 3 06/01/19 25 025 Discontin ued(Reord er) Active Problems Patient Care Coordination No te Formatting of this note migh t be different from the original. Senior Software Architect Stephanie Lozano [phone] Tacrolimus Target Level 6-8 Problem Noted Date [...] History of liver transplant 08/26/2012 Overview (09/02/2012): Lili Prather is a 12 yo female s/p [...] was likely 2/2 thyroglobulin injection that day (Lili remained asymptomatic with neg U/A and blood cx) Lili was discharged home on POD 7; tolerating [...] vaginal yeast infection Neuro/psych: Advanced from needing [place] q6h for pain to using Tylenol prn [...] Plan (07/29/2017 1:32 PM CDT): Assessment: Assessment: Lili Prather is an 17 year old female [...] Plan (07/28/2017 2:07 PM CDT): Assessment: Assessment: Lili Prather is an 17 year old female [...] - End tidal CO2 monitoring while on ONLINE MEDIA BUYER Neuro - Fentanyl ONLINE MEDIA BUYER - Basal 10mcg/hr, ONLINE MEDIA BUYER dose 15mcg - Scheduled Toradol 30mg q6h [...] miralax daily for bowel regimen while on ONLINE MEDIA BUYER - Continue prednisone FEN: - Continue IV fluids at 100ml/hr, wean when tolerating PO - Vit D daily - Mag Oxide BID Assessment & Plan (07/27/2017 5:39 PM CDT): Assessment: Assessment: Lili Prather is an 17 year old female [...] - End tidal CO2 monitoring while on ONLINE MEDIA BUYER Neuro: significant diffuse myalgias throughout that are improved on ONLINE MEDIA BUYER and Toradol - Fentanyl ONLINE MEDIA BUYER - Basal 10mcg/hr, ONLINE MEDIA BUYER dose 15mcg - Scheduled Toradol 30mg q6h [...] miralax daily for bowel regimen while on ONLINE MEDIA BUYER - Continue prednisone Assessment & Plan (07/28/2017 [...] - End tidal CO2 monitoring while on ONLINE MEDIA BUYER Neuro: significant diffuse myalgias throughout, received fentanyl in ED. - Fentanyl ONLINE MEDIA BUYER - 1x dose of Toradol - Melatonin [...] miralax daily for bowel regimen while on ONLINE MEDIA BUYER - Continue prednisone Assessment & Plan (07/27/2017 [...] some element of liver transplant rejection. Saw Child Day Care Provider in November--not recommended to have another follow up until . Never had repeat liver ultrasound performed in October. Itching complaint could be a side effect of Tacrolimus which is now being used TID. Also with bleeding gums. [facility] Recommendations: 1. checking coags & bile acids 2. Should have liver ultrasound performed and report forwarded to Child Day Care Provider. 3. Previously counseled that it was acceptable to breastfeed on Tacrolimus Abdominal pain, right upper quadrant 03/21/2017 07/16/2017 Overview (03/22/2017): Lili is an 17 yo F with history [...] 03/21/2017 Assessment & Plan (03/21/2017 7:22 PM AGRICULTURAL LENDER): Lili is an 17 yo F with history [...] 09/17/2019 Assessment & Plan (03/20/2017 10:55 AM AGRICULTURAL LENDER): Assessment: Lili is an 17-year-old female with a history [...] with outpatient GI on 03/26 - continue RENAL DIALYSIS TECHNICIAN medications ASA 81 mg PO daily Cholecalciferol 2000 units PO qd Ferrous sulfate 325 mg PO BID Hydroxyzine 25 mg PO qhs Magnesium oxide 400 mg qd Mycophenolate 500 mg PO BID Assessment & Plan (03/19/2017 11:23 AM AGRICULTURAL LENDER): Assessment: Lili is an 17-year-old female with a history [...] esomeprazole to 40 mg daily - continue RENAL DIALYSIS TECHNICIAN medications ASA 81 mg PO daily Cholecalciferol 2000 units PO qd Ferrous sulfate 325 mg PO BID Hydroxyzine 25 mg PO qhs Magnesium oxide 400 mg qd Tacrolimus 1.5 mg qAM, 2 mg qhs Mycophenolate 500 mg PO BID Assessment & Plan (03/18/2017 2:09 PM AGRICULTURAL LENDER): Assessment: Lili is an 17-year-old female with a history [...] - daily liver function panels - continue RENAL DIALYSIS TECHNICIAN medications ASA 81 mg PO daily Cholecalciferol 2000 units PO qd Ferrous sulfate 325 mg PO BID Hydroxyzine 25 mg PO qhs Magnesium oxide 400 mg qd Tacrolimus 1.5 mg qAM, 2 mg qhs Mycophenolate 500 mg PO BID Assessment & Plan (03/18/2017 1:46 PM AGRICULTURAL LENDER): Assessment: 17 y/o female with history of [...] QPM Assessment & Plan (03/17/2017 2:01 PM AGRICULTURAL LENDER): Assessment: 17 y/o female with history of [...] QPM Assessment & Plan (03/17/2017 1:23 PM AGRICULTURAL LENDER): Assessment: Lili is an 17-year-old female with a history [...] with the previous steroid treatment - continue RENAL DIALYSIS TECHNICIAN medications ASA 81 mg PO daily Cholecalciferol 2000 units PO qd Ferrous sulfate 325 mg PO BID Hydroxyzine 25 mg PO qhs Magnesium oxide 400 mg qd Tacrolimus 1.5 mg qAM, 2 mg qhs Mycophenolate 500 mg PO BID Assessment & Plan (03/16/2017 2:07 PM AGRICULTURAL LENDER): Assessment: 17 y/o female with history of [...] QPM Assessment & Plan (03/16/2017 10:50 AM AGRICULTURAL LENDER): Assessment: Lili is an 17-year-old female with a history [...] completed Assessment & Plan (03/15/2017 3:28 PM AGRICULTURAL LENDER): Assessment: 17 y/o female with history of [...] 03/08/201701/17 Assessment & Plan (04/21/2017 3:25 PM AGRICULTURAL LENDER): Chronic daily headaches (mixed pattern of migraines [...] - transition to adult neurology (either at [facility] or elsewhere). 13. Call in 4-6 weeks with update regarding headaches, sooner for concerns Assessment & Plan (03/09/2017 11:32 AM AGRICULTURAL LENDER): Assessment: Has not had a headache over [...] 03/15 Assessment & Plan (03/08/2017 10:50 AM AGRICULTURAL LENDER): Assessment: Lili has a history of migraine headaches and [...] pain Assessment & Plan (03/08/2017 1:03 AM AGRICULTURAL LENDER): Assessment: Lili has a history of migraine headaches for [...] 01/18/2020 Assessment & Plan (03/09/2017 11:36 AM AGRICULTURAL LENDER): Assessment: The patient's elevated liver enzymes are [...] the hydroxyzine for pruritis 2. Continue with RENAL DIALYSIS TECHNICIAN anti-rejection medications, tacrolimus, mycophenolate, ferrous sulfate, ASA, magnesium oxide, and vitamin D 3. Follow-up liver panel on Wednesday, 03/13 at [facility] Assessment & Plan (03/08/2017 10:46 AM AGRICULTURAL LENDER): Assessment: Lili Prather is a 16 y.o. female with [...] ASA Assessment & Plan (03/08/2017 1:00 AM AGRICULTURAL LENDER): Assessment: Lili Prather is a 16 y.o. female with [...] 01/18/2020 Assessment & Plan (05/20/2017 9:54 PM AGRICULTURAL LENDER): Assessment: Lili is an 17 year old female with [...] BID Assessment & Plan (05/20/2017 2:25 PM AGRICULTURAL LENDER): Assessment: Lili Prather is a 17 yo with HCC [...] meds Assessment & Plan (05/19/2017 1:52 PM AGRICULTURAL LENDER): Assessment: Lili is an 17 year old female with [...] BID Assessment & Plan (05/18/2017 11:19 AM AGRICULTURAL LENDER): Assessment: Lili is an 17 year old female with [...] vascular access for IV steroid wean as Lili is a difficult stick and loses her IVs frequently. - Regular diet - VS q8h - Daily HFP, GGT, PT/INR - Continue home medications -ASA 81mg PO daily -Cholecalciferol 2000 Units PO Qday -Ferrous Sulfate 325mg PO BID -Mag Ox 400mg BID -Cellcept 500mg PO BID -Prograf 2mg BID Assessment & Plan (05/17/2017 1:44 PM AGRICULTURAL LENDER): Assessment: Lili is an 17 year old female with [...] diet Assessment & Plan (04/09/2013 6:56 PM AGRICULTURAL LENDER): Assessment: Lili Prather is a 13 yo with HCC- [...] weeks Assessment & Plan (04/08/2013 10:01 PM AGRICULTURAL LENDER): Assessment: Lili Prather is a 13 yo with HCC- [...] weeks Assessment & Plan (03/19/2013 12:21 PM AGRICULTURAL LENDER): Assessment: Lili is a 13yo with h/o hepatocellular carcinoma [...] daily Assessment & Plan (03/19/2013 11:08 AM AGRICULTURAL LENDER): Assessment: Lili is a 13yo with h/o hepatocellular carcinoma [...] daily Assessment & Plan (03/18/2013 10:34 AM AGRICULTURAL LENDER): Assessment: Lili is a 13 yo s/p liver transplant [...] to hold PRBC and FFP for procedure -policy service coordinator Gil are aware and will coordinate with [place] -IP consult to pastoral care -IP consult to social work lecturer -policy service coordinator Gil are aware and will coordinate with OR -IP consult to pastoral care -IP consult to social work lecturer Footprints Patient 02/11/2012 0 Overview (02/11/2012): Simona Mcgee MA,CCLS is [facility] [phone]. HCC (hepatocellular carcinoma) 01/29/2012 07/16/2017 Overview (02/12/2012): 11 yo with HCC s/p [facility], d/c'ed on 02/04; presents to ED 02/07 with h/o daily fevers (Tmax 102), chills abdominal pain since d/c. Has been treating with 600mg Motrin; weaning off oxycontin (last dose to be [address] scan in ED shows small [...] S/p chemo-embolization on 01/29/12 for HCC. Dilaudid ONLINE MEDIA BUYER (due to extreme pruritis with morphine) not [...] Encounters Date Type Department Care Team Description 12/08/2024 Refill [facility] - GI [address] [place] [address] Juan Landry MD MEDICATION REFILL from Last 3 Months Immunizations Immunization Administration Dates Next Due INFLUENZA VACCINE, TRIV. (AF LURIA, FLUZONE TRIVALENT; 6MO+) (IIV3) 02/09/2007 Covid Pfizer primary monoval ent 12+ yr 0.3mL Purple [...] Recorded Patient Health Questionnaire-2 Score 0 12/15/2023 [facility] - Occupational Stress [...] place to sleep or slept in a correction (including now)? No 12/05/2022 Belford Depression Scale Answer Date Recorded Belford Depression Scale Total 6 01/19/2023 The thought of harming myself has occurred to me . Never 01/19/2023 Education Answer Date Recorded What is the highest level of school you have completed or the highest degree you have received? 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 Not on file Not on file Not on file Last Filed Vital Signs Vital Sign Reading Time Taken Comments Blood Pressure 121/75 05/02/2024 11:44 AM AGRICULTURAL LENDER Pulse 88 05/02/2024 11:44 AM AGRICULTURAL LENDER Temperature 36.5 C (97.7 F) 05/02/2024 11:44 AM AGRICULTURAL LENDER Respiratory Rate 18 11/08/2023 8:52 AM CDT Oxygen Saturation 99% 05/02/2024 11:44 AM AGRICULTURAL LENDER Inhaled Oxygen Concentration 100% 07/14/2017 1 2:45 PM CDT Weight 71.9 kg (158 lb 9.6 oz) 05/02/2024 11:44 AM AGRICULTURAL LENDER Height 167.6 cm (5' 6) 05/02/2024 11:44 AM AGRICULTURAL LENDER Body Mass Index 25.6 05/02/2024 11:44 AM AGRICULTURAL LENDER Plan of Treatment Health Maintenance Due Date Last Done Comments PNEUMOCOCCAL VACCINE (1 of 2 - PPSV23, PCV20, or PCV21) 05/14/2000 03/19/2000, 1999 ZOSTER VACCINE (1 of 2) 2018 CHLAMYDIA/GONORRHEA SCREENING 11/01/2023 10/31/2022, 09/19/2022, 09/09/2020, Additional history exists DEPRESSION SCREENING 04/19/2024 12/15/2023, 10/13/2022, 05/02/2021 COVID-19 VACCINE ( season) 2024 04/01/2021, 06/20/2020, 05/31/2020 INFLUENZA VACCINE (#1) 2024 , 02/17/2018, 02/03/2018, Additional history exists PAP SMEAR 06/22/2026 06/23/2023, 09/09/2020 DTAP/TDAP/TD VACCINES (9 - Td or Tdap) 10/13/2032 10/13/2022, 01/31/2020, 03/07/2011, Additional history exists HIB VACCINE Completed 08/25/2000, 09/17, 1999, Additional history exists HEPATITIS B VACCINE Completed 03/01/2001, 1999, 1999 HPV VACCINE Completed 09/24/2010, 04/20, 03/05/2010 MENINGOCOCCAL GROUPS A/C/Y/W VACCINE Completed 01/13/2017 HEPATITIS C SCREENING Completed 09/24/2022 , 08/07/2019, 05/25/2017, Additional history exists HIV SCREENING Completed 09/24/2022, 01/19, 08/07/2019, Additional history exists MENINGOCOCCAL (Group B) VACCINE SHARED DECISION-MAKING Aged Out No longer eligible based on patient's age to complete this topic Goals Goal Patient Goal Type Associated Problems Recent Progress Patient-Stated? Author Safety General Alida Barlow RN Note: Expected end date: ongoing Interventions: Your nurse will assess your risk for falls/injury each visit Medication Management General On track( 025 11:50 AM AGRICULTURAL LENDER) No Alida Harp RN Note: Expected end date:ongoing Interventions: Take all medications as prescribed Let your doctor know right away about any changes in your medications Make sure to request a refill of your medication at least one week prior to your last dose Procedures Procedure Name Priority Date/Time Associated Diagnosis Comments PAP IMAGE-GUIDED W HPV Routine 06/23/2023 11:24 AM AGRICULTURAL LENDER Encounter for gynecological examination without abnormal finding CHLAMYDIA + GC AMPLIFIED PROBE STAT 10/31/2022 6:43 AM CDT Threatened premature labor in third trimester HEPATITIS C AB W/RFLX TO HCV RNA QN PCR Routine 09/24/2022 High-risk in second trimester HIV-1 HIV-2 ANTIBODY + HIV P24 AG PANEL Routine 09/24/2022 High-risk in second trimester from Last 3 Months or Most Recently Relevant to Health Maintenance Results * PAP IMAGE-GUIDED W HPV (06/23/2023 11:24 AM AGRICULTURAL LENDER) Case Report Gynecologic Cytology Report Case: [id number] Authorizing Provider: Sabra Rocha MD Collected: 06/23/2023 11:24 AM Ordering Location: [facility] - Received: 06/24/2023 11:24 AM CORPORATE DEVELOPMENT ANALYST First Screen: Jarvis Severino Specimen: THINPREP - IMAGE GUIDED, Cervix/Endocervix 06/28/2023 10:16 AM CDT [facility] LMP none 06/28/2023 10:16 AM CDT [facility] Menstrual Status Mirena 06/28/19 10:16 AM CDT [facility] Specimen Adequacy Satisfactory for evaluation, endocervical/trans formation zone component absent. 06/28/2023 10:16 AM CDT [facility] Categorization Negative for intraepithelial lesion or malignancy. 06/28/2023 10:16 AM CDT [facility] Interpretation GERM DRIER Negative for intraepithelial lesion or malignancy. 06/28/2023 10:16 AM CDT [facility] at 1016 CDT Pap Footnote The Pap Smear is a screening test. False positive and false negative results occur. Negative results do not preclude abnormalities, thus clinical correlation is required. This specimen was evaluated by the ThinPrep Imaging System along with an additional manual rescreening by a job captain and/or pathologist. 06/28/2023 10:16 AM CDT [facility] Embedded Images 10:16 AM CDT [facility] Pathology/Cytolo gy MISCELLANEOUS SAMPLES / Unknown 06/23/2023 11:24 AM AGRICULTURAL LENDER 06/24/2023 11:24 AM AGRICULTURAL LENDER Sabra Rocha MD LAB - PATHOLOGY/CYTOLOGY ORDER HANNAH Final Result [facility] [address] [phone] * CHLAMYDIA + GC AMPLIFIED PROBE (10/31/2022 6:43 AM CDT) Chlamydia Amplified Probe Negative Negative 10/31/2022 10:35 PM CDT [facility] GC Amplified Probe Negative Negative 10/31/2022 10:35 PM CDT [facility] Microbiology PART OF UTERINE CERVIX / Unknown Collection / Unknown 10/31/2022 6:43 AM CDT 10/31/2022 6:52 AM CDT Narrative [facility] - 10/31/2022 10:35 PM CDT Results based on detection/no detection of ribosomal RNA by amplified method. [facility] - MICROBIOLOGY ORDERABLES Final Result Performing Organization Address City/[facility]/ZIP Co de Phone Number [facility] [address] [place] [address], [facility] [phone] * HEPATITIS C AB W/RFLX TO HCV RNA QN PCR (09/24/2022) Hepatitis C Antibody NON-REACTI VE NON-REACT [facility] Signal to Cut-Off 0.16 <1.00 [facility] Comment: HCV antibody was non-reactive. There is no laboratory evidence of HCV infection. In most cases, no further action is required. However, if recent HCV exposure is suspected, a test for HCV RNA (test code 04651) is suggested. For additional information please refer to http://education.[employer]/faq/AKI07y9 (This link is being provided for informational/ educational purposes only.) Test Performed at: [facility] [address] [place] [address] NIGEL RUIZ MD Blood BLOOD SPECIMEN / Unknown 09/24/2022 09/24/2022 10:57 AM CDT Kecia Orosco INSTRUCTIONAL MATERIALS DIRECTOR-THERAPIST'S ASSISTANT LAB - CHEMISTRY ORDERA BLES Final Result Performing Organization Address City/[facility]/ZIP Co de Phone Number [facility] [address] [place] [address] * HIV-1 HIV-2 ANTIBODY + HIV P24 AG PANEL (09/24/2022) HIV Screen 4th Generation w Reflex NON-REACT DAMON NON-REACT [facility] Comment: HIV-1 antigen and HIV-1/HIV-2 antibodies were not detected. There is no laboratory evidence of HIV infection. PLEASE NOTE: This information has been disclosed to you from records whose confidentiality may be protected by state law. If your state requires such protection, then the state law prohibits you from making any further disclosure of the information without the specific written consent of the person to whom it pertains, or as otherwise permitted by law. A general authorization for the release of medical or other information is NOT sufficient for this purpose. For additional information please refer to http://education.[employer]/faq/EBQ912 (This link is being provided for informational/ educational purposes only.) The performance of this assay has not been clinically validated in patients less than 2 years old. Test Performed at: [facility] [id number] [place] [address] NIGEL RUIZ MD Blood BLOOD SPECIMEN / Unknown 09/24/2022 09/24/2022 10:57 AM CDT Kecia Orosco INSTRUCTIONAL MATERIALS DIRECTOR-THERAPIST'S ASSISTANT LAB - CHEMISTRY ORDERA BLES Final Result [facility] [address] [place] [address] from Last 3 Months or Most Recently Relevant to Health Maintenance Insurance MEDICAID - [facility] MEDICAID - [place] Advance Directives * Full Code (Latest Code [...] 4:48 AM 02/17/2020 3:35 PM Care Teams Salesperson Books Relationship Specialty Start Date End Date Josiah Palacios MD [address] [id number] PCP - General Family Medicine 01/19/23 Stephanie Lozano, MARINA Registered Nurse 12/16/16 Rei Ann, PharmD Pharmacist 01/12/17
--- OUTSIDE RECORDS SUMMARY | 2025-01-06 10:41 | XMS_ITS | Encounter Summary ---
Author Organization [facility] Address [address] [facility] [place] [address] Care Team Providers Care Technical Specialist Cytology Name Role Phone Josiah Palacios MD Primary Care Provider [phone] Mariama Rossi REGIONAL PRODUCTION MANAGER-AIR POLLUTION COMPLIANCE INSPECTOR Unavailable Ave Cooley RN Unavailable Unavailab le ForistalStephanie RN Unavailable Unav ailable AnglimRei PharmD Unavailable Unavai Tesfaye Rivera MD Primary Care Provider [phone] Frida De Los Santos MD Unavailable Mariama Rudd RESOURCE COORDINATOR Unavailable [phone] Josiah Palacios MD Primary Care Provider [phone] Marcel Ram MD Unavailable [phone] Encounter Details Date Type Department Care Team (Late st Contact Info) Description 06/06/2012 Telephone [facility] at [address] [address] Neetu Chaney, RN Social History Tobacco Use Types Packs/Day Years Used Date Smoking Tobacco: Never Smokeless Tobacco: Never Alcohol Use Standard Drinks/Week Comments No 0 (1 standard drink = 0.6 oz pur e alcohol) Comments No Sex and Gender Information Value Date Recorded Sex Assigned at Not on file Legal Sex Female 2:09 PM YARDAGE ESTIMATOR Gender Identity Not on file Sexual Orientation Not on file documented as of this encounter Plan of Treatment Not on file documented as of this encounter Visit Diagnoses Not on filedocumented in this encounter Additional Health Concerns Infection Onset Date Last Indicated Resolved Time COVID-19 Under Investigation 02/16/2020 02/16/2020 02/16/2020 3:58 AM CDT COVID-19 Confirmed 02/16/2020 02/16/2020 0 4:33 AM YARDAGE ESTIMATOR documented as of this encounter Care Teams Technical Specialist Cytology Relationship Specialty Start Date End Date Josiah Palacios MD PCP - General Family Medicine 12/30/11 12/06/21 Tesfaye Baca MD [address] [place] [address] PCP - General 12/07/21 01/18/23 Frida De Los Santos MD [address] [facility] [address] [place] [address] PCP - Attributed-[employer] 07/18/22 3 Josiah Palacios MD [address] [place] [address] PCP - General Family Medicine 01/19/23 Marcel Ram MD [address] [facility] [address] [place] [address] PCP - Attributed-[employer] 01/17/23 4 Mariama Rossi APRN-AIR POLLUTION COMPLIANCE INSPECTOR [address] [place] [address] Nurse Practitioner Nurse Practitioner 09/30/16 12/15/16 Ave Cooley, RN Registered Nurse 09/30/16 12/15/16 Stephanie Lozano, RN Registered Nurse 12/16/16 Rei Ann, PharmD Pharmacist 01/12/17 Mariama Rudd, YANG Outpatient Labeling Strategist Care Management 12/08/22 12/10/22 documented as of this encounter
[2025-01-06 10:44] VITALS: BP 121/65; PULSE 102; RESP 16; TEMP 37.1; O2SAT 99
--- NOTE | 2025-01-06 11:23 | ED.FEVER ---
HPI - Fever General Chief Complaint: Fever Stated Complaint: fever/aches/coughing brown mucas Source: patient Mode of arrival: ambulatory Limitations: no limitations History of Present Illness HPI Narrative: Pt presents for evaluation of sick symptoms since Wednesday of this week. She reports headache, neck pain, low back pain, sore throat, bilateral ear pressure, cough and nausea. She denies fever, chills, vomiting and diarrhea. She is not aware of any specific sick contacts. She has tried taking dramamine, pepto-bismol, tylenol and ibuprofen for her symptoms. She does use marijuana but denies smoking cigarettes. Related Data Home Medications ?Medication ?Instructions ?Recorded ?Confirmed ?Last Taken ?Type tacrolimus 1 mg capsule, 3 mg PO .COMPLEX 01/26/22 05/19/24 05/19/24 History immediate-release Allergies Allergy/AdvReac Type Severity Reaction Status Date / Time hydromorphone Allergy Severe HALLUCINATI Verified 05/19/24 17:33 ONS morphine AdvReac Severe SEVERE Verified 05/19/24 17:33 HIVES UNCONTROLLED WITH BENADRYL Review of Systems Review of Systems: CONSTITUTIONAL: Denies fever, chills, or sweats. EYES: Denies visual changes, redness, or discharge. ENT: Reports sore throat and bilateral ear pressure CARDIOVASCULAR: Denies chest pain, palpitations, or edema. RESPIRATORY: Reports cough. Denies dyspnea. GASTROINTESTINAL: Reports nausea. Denies abdominal pain, vomiting, or diarrhea. GENITOURINARY: Denies dysuria or hematuria. SKIN: Denies rash or itching. MUSCULOSKELETAL: Reports neck pain and back pain NEUROLOGIC: Reports headache. Denies numbness, dizziness, or weakness. PSYCHIATRIC: Denies anxiety or depression. [facility] Past Medical History Medical History Immunosuppression due to drug therapy Liver cancer Surgical History Surgical History History of liver transplant (2012) Social History Social History Social History: Surrogate medical decision maker: Leona Aguila, mother ([phone]). Code status: Full code. Smoking status: Never smoker Second hand tobacco smoke exposure: No Alcohol intake: never Substance use: never Substance use type: does not use Do You Feel Safe in your Home?: Yes Lack of Transportation: No Lack of Food: Never True Current Housing: Decline to Answer Concerned About Future Housing: Decline to Answer Difficulty Paying Gas/Electric Bills: Decline to Answer Difficulty Paying for Meds: Decline to Answer Currently Unemployed: Decline to Answer Education: Decline to Answer Difficulty w/ Childcare or Family Care: Decline to Answer Additional living arrangements comments: Lives with spouse and their 2 young children. Spiritual care concerns: No Exam Narrative: GENERAL: Well-appearing, well-nourished, and in no acute distress. HEAD: Normocephalic, atraumatic. EYES: PERRLA and EOMI. ENT: Nares clear, no rhinorrhea or epistaxis. Mucous membranes moist. Oropharynx without tonsillar hypertrophy exudate or other lesions. Bilateral TMs pearly pierre nonbulging NECK: Supple. No adenopathy or masses. No carotid bruits or JVD CHEST: Clear to auscultation. No respiratory distress. No wheezes rales or rhonchi HEART: Regular rate and rhythm. No murmur heard. Normal peripheral pulses. ABDOMEN: Soft, nontender, nondistended, normal active bowel sounds. EXTREMITIES: Normal range of motion. No edema. SKIN: Warm, dry, no rash. NEURO: No focal deficits. Alert and oriented x3. PSYCH: Normal mood and affect. Course Course Emergency Course: This is a 24 yr old female who presented today for evaluation of sick symptoms. Her symptoms are consistent with acute viral syndrome. She requested a work note. She declined any testing. Advised on medications which may help with her current symptoms. She should follow-up with her primary care provider and go to the ER for worsening symptoms. Patient in agreement with plan of care. Level of Care: Express Care Visit Vital Signs Vital signs: Vital Signs Temperature 37.1 C 01/06/25 10:44 Pulse Rate 102 H 01/06/25 10:44 Respiratory Rate 16 01/06/25 10:44 Blood Pressure 121/65 01/06/25 10:44 Pulse Oximetry 99 01/06/25 10:44 Oxygen Delivery Room Air 01/06/25 10:44 Temperature 37.1 C 01/06/25 10:44 Pulse Rate 102 H 01/06/25 10:44 Respiratory Rate 16 01/06/25 10:44 Blood Pressure 121/65 01/06/25 10:44 Pulse Oximetry 99 01/06/25 10:44 Oxygen Delivery Room Air 01/06/25 10:44 Discharge Plan Discharge Clinical Impression: Acute viral syndrome Patient Disposition: Home Condition: Stable Instructions: Antibiotic Form, Viral Syndrome (ED) Patient Language: Samoan Prescriptions: No Action tacrolimus 1 mg capsule 3 mg PO .COMPLEX Rx Instructions: 3 mg orally in the AM and 4mg at night Follow-up/Referrals: Suzanne,Josiah Busby MD [Primary Care Provider, Unknown] Stand Alone Forms: Work/School Release IP Time of Disposition: 11:22
== END 2025-01-06 11:28 | disposition home or self-care (01) ==
PROVIDERS: Emergency Provider Nurse Practitioner; PCP Family Medicine
DX: B34.9 Viral infection, unspecified (principal); D84.821 Immunodeficiency due to drugs; Z85.05 Personal history of malignant neoplasm of liver; Z94.4 Liver transplant status
CPT/HCPCS: 99211; G0463